=== PATIENT | female | born 1980 | race Native Hawaiian/Other Pacific Islander ===

== ENCOUNTER → 2017-12-01 21:42 | Outpatient (CLI) | payer BC, SELFPAY ==
[2017-12-01 22:06] LABS: Absolute Lymphocyte Count 2.44 X10^3/ul (0.83-4.51); Absolute Neutrophil Count 4.3 X10^3/uL (2.0-7.7); Basophil# 0.04 X10^3/uL; Basophil% 0.6 % (0-1); Eosinophil# 0.11 X10^3/uL; Eosinophils% 1.5 % (0-5); Hematocrit 39.4 % (37-47); Hemoglobin 13.1 g/dl (12.0-15.0); Lymphocyte # 2.44 X10^3/ul (4.0); Lymphocyte % 33.6 % (19-41); Mean Corp Hgb Conc 33.2 g/gl (32-36); Mean Corpuscular Hgb 29.1 pg (27.0-32.0); Mean Corpuscular Volume 87.6 fL (81-99); Mean Platelet Vol. 9.5 fl (6.2-12.0); Monocyte% 5.5 % (0-10); Neutrophil # 4.26 X10^3/uL (2.7-7.7); Neutrophil % 58.5 % (47-70); POSITIVE COUNT NO; POSITIVE DIFFERENTIAL NO; POSITIVE MORPHOLOGY NO; Platelet Count 371 K/mm3 (150-450); RBC Distribution Width CV 13.2 % (11.6-14.6); RBC Distribution Width SD 41.7 fl (35.1-43.9); White Blood Count 7.3 K/mm3 (4.4-11.0)
[2017-12-01 22:25] LABS: ALB/GLOB Ratio 1.4 RATIO (0.9-2.4); AST(SGOT) 20 U/L (15-37); Alanine Aminotransfer ALT/SGPT 30 U/L (13-56); Albumin, Serum 4.6 g/dL (3.2-5.0); Alkaline Phosphatase 30 U/L (45-117); Anion Gap 9 (5-15); BUN 12 mg/dL (7-18); BUN/Creat Ratio 12.5 RATIO (10-20); Calcium,Total 9.1 mg/dL (8.5-10.1); Chloride 107 mmol/L (98-107); Cholesterol 130 mg/dL (200); Creatinine, Serum 0.96 mg/dL (0.55-1.02); EST Glomerular Filtration Rate 68 mL/min (>60); Est Glom Filt Rate - Afr Amer 83 mL/min (>60); Globulin 3.2 g/dL (2.2-4.2); Glucose 99 mg/dL (74-106); High Density Lipoprotein 81 mg/dL; Protein, Total 7.8 g/dL (6.4-8.2); Sodium Level 141 mmol/L (136-145); Thyroid Stim Hormone (TSH) 0.51 uIU/mL (0.358-3.74); Triglycerides 63 mg/dL; Very Low Density Lipoprotein 13 mg/dL (5-40)
== END ==
PROVIDERS: Visit Provider Nurse Practitioner
DX: E11.65 Type 2 diabetes mellitus with hyperglycemia (principal); G47.00 Insomnia, unspecified; E78.00 Pure hypercholesterolemia, unspecified; E03.9 Hypothyroidism, unspecified
CPT/HCPCS: 80053; 80061; 84439; 84443; 85025

== ENCOUNTER → 2018-02-06 16:31 | Outpatient (CLI) | payer BC, SELFPAY ==
[2018-02-06 17:05] LABS: Cholesterol 192 mg/dL (200); High Density Lipoprotein 65 mg/dL; Triglycerides 202 mg/dL; Very Low Density Lipoprotein 40 mg/dL (5-40)
== END ==
PROVIDERS: Referring Provider Nurse Practitioner; Visit Provider Nurse Practitioner
DX: E78.00 Pure hypercholesterolemia, unspecified (principal)
CPT/HCPCS: 80061

== ENCOUNTER → 2018-09-08 22:20 | Outpatient (CLI) | payer BC, SELFPAY ==
[2018-09-08 16:28] VITALS: BMI 28.3
[2018-09-08 22:46] LABS: Cholesterol 216 mg/dL (200); High Density Lipoprotein 67 mg/dL; Triglycerides 302 mg/dL; Very Low Density Lipoprotein 60 mg/dL (5-40)
== END ==
PROVIDERS: Referring Provider Nurse Practitioner; Visit Provider Nurse Practitioner
DX: E11.9 Type 2 diabetes mellitus without complications (principal)
CPT/HCPCS: 80061

== ENCOUNTER → 2018-12-17 23:18 | Outpatient (CLI) | payer BC, SELFPAY ==
[2018-12-17 15:28] VITALS: BMI 28.0
[2018-12-17 23:27] LABS: Absolute Lymphocyte Count 2.96 X10^3/uL (0.83-4.51); Absolute Neutrophil Count 3.7 X10^3/uL (2.0-7.7); Basophil# 0.06 X10^3/uL; Basophil% 0.8 % (0-1); Eosinophil# 0.19 X10^3/uL; Eosinophils% 2.5 % (0-5); Hematocrit 38.1 % (37-47); Hemoglobin 12.2 g/dL (12.0-15.0); Lymphocyte # 2.96 X10^3/ul (4.0); Lymphocyte % 39.7 % (19-41); Mean Corpuscular Hgb 28.3 pg (27.0-32.0); Mean Corpuscular Volume 88.4 fL (81-99); Mean Platelet Vol. 9.1 fl (6.2-12.0); Monocyte# 0.54 X10^3/uL; Monocyte% 7.2 % (0-10); NRBC Flagged by Analyzer 0 % (0-5); Neutrophil # 3.69 X10^3/uL (2.7-7.7); Neutrophil % 49.5 % (47-70); Platelet Count 348 K/mm3 (150-450); RBC Distribution Width CV 13.6 % (11.6-14.6); Red Blood Count 4.31 M/mm3 (4.2-5.4); White Blood Count 7.5 K/mm3 (4.4-11.0)
[2018-12-17 23:40] LABS: ALB/GLOB Ratio 1.2 RATIO (0.9-2.4); AST(SGOT) 16 U/L (15-37); Alanine Aminotransfer ALT/SGPT 29 U/L (13-56); Albumin, Serum 4.2 g/dL (3.2-5.0); Alkaline Phosphatase 28 U/L (45-117); Anion Gap 6 (5-15); BUN 20 mg/dL (7-18); BUN/Creat Ratio 18.9 RATIO (10-20); Calcium,Total 9.3 mg/dL (8.5-10.1); Chloride 108 mmol/L (98-107); Cholesterol 201 mg/dL (200); Creatinine, Serum 1.06 mg/dL (0.55-1.02); EST Glomerular Filtration Rate 61 mL/min (>60); Est Glom Filt Rate - Afr Amer 74 mL/min (>60); Globulin 3.4 g/dL (2.2-4.2); Glucose 142 mg/dL (74-106); High Density Lipoprotein 75 mg/dL; Potassium 3.8 mmol/L (3.5-5.1); Protein, Total 7.6 g/dL (6.4-8.2); Sodium Level 140 mmol/L (136-145); Triglycerides 277 mg/dL; Very Low Density Lipoprotein 55 mg/dL (5-40)
== END ==
PROVIDERS: Referring Provider Nurse Practitioner; Visit Provider Nurse Practitioner
DX: E11.9 Type 2 diabetes mellitus without complications (principal); E78.5 Hyperlipidemia, unspecified
CPT/HCPCS: 80053; 80061; 85025

== ENCOUNTER → 2019-04-28 | Outpatient (CLI) | payer BC, SELFPAY ==
[2019-04-28 14:53] VITALS: BMI 28.1
[2019-05-04 13:46] LABS: HPV Reflexed? NOT INDICATED
== END | disposition home or self-care (01) ==
PROVIDERS: Referring Provider Nurse Practitioner; Visit Provider Nurse Practitioner
DX: Z01.419 Encounter for gynecological examination (general) (routine) without abnormal findings (principal)
CPT/HCPCS: 88175; G0145

== ENCOUNTER → 2019-05-16 16:25 | Outpatient (CLI) | payer BC, SELFPAY ==
[2019-04-28 14:53] VITALS: BMI 28.1
[2019-05-16 18:16] LABS: Progesterone Level 10.42 ng/mL (See Comment)
[2019-05-16 18:31] LABS: hCG Titer Quant., Serum < 1 mIU/mL (1-3)
== END ==
PROVIDERS: Visit Provider Obstetrics & Gynecology
DX: N92.6 Irregular menstruation, unspecified (principal)
CPT/HCPCS: 36415; 84144; 84702

== ENCOUNTER → 2019-06-01 | Outpatient (CLI) | payer BC, SELFPAY ==
[2019-04-28 14:53] VITALS: BMI 28.1
[2019-06-01 16:31] LABS: Chlamydia Trachomatis by PCR Negative (Negative); Neisserai gonorrhoeae by PCR Negative (Negative); Probe Check PASS; Sample Adequacy Control PASS; Specimen Processing Control PASS
== END | disposition home or self-care (01) ==
LOC: LABSPEC 13:20
PROVIDERS: Visit Provider Obstetrics & Gynecology
DX: Z11.3 Encounter for screening for infections with a predominantly sexual mode of transmission (principal)
CPT/HCPCS: 87491; 87591

== ENCOUNTER → 2020-03-26 | Outpatient (CLI) | payer BC, SELFPAY ==
[2020-03-26 17:42] VITALS: BMI 28.9
[2020-03-26 22:22] LABS: Absolute Lymphocyte Count 2.24 X10^3/uL (0.83-4.51); Absolute Neutrophil Count 6.5 X10^3/uL (2.0-7.7); Basophil# 0.05 X10^3/uL; Basophil% 0.5 % (0-1); Eosinophil# 0.08 X10^3/uL; Eosinophils% 0.9 % (0-5); Hematocrit 41.5 % (37-47); Hemoglobin 13.2 g/dL (12.0-15.0); Lymphocyte # 2.24 X10^3/ul (4.0); Mean Corp Hgb Conc 31.8 g/dL (32-36); Mean Corpuscular Hgb 29.3 pg (27.0-32.0); Mean Platelet Vol. 9.1 fl (6.2-12.0); Monocyte# 0.39 X10^3/uL; Monocyte% 4.2 % (0-10); NRBC Flagged by Analyzer 0 % (0-5); Neutrophil # 6.53 X10^3/uL (2.7-7.7); Neutrophil % 70.1 % (47-70); Platelet Count 399 K/mm3 (150-450); RBC Distribution Width CV 13.5 % (11.6-14.6); RBC Distribution Width SD 45.8 fl (35.1-43.9); Red Blood Count 4.51 M/mm3 (4.2-5.4); White Blood Count 9.3 K/mm3 (4.4-11.0)
[2020-03-26 22:43] LABS: Hemoglobin A1c 6.4 % (3.8-5.6)
[2020-03-28 21:19] LABS: EBV Acute VCA IgM < 36.0 U/mL (0.0-35.9); EBV-VCA IgG > 600.0 U/mL (0.0-17.9)
== END | disposition home or self-care (01) ==
PROVIDERS: PCP Nurse Practitioner; Referring Provider Nurse Practitioner; Visit Provider Nurse Practitioner
DX: E13.9 Other specified diabetes mellitus without complications (principal); R53.83 Other fatigue
CPT/HCPCS: 83036; 85025; 86664; 86665

== ENCOUNTER → 2020-04-30 16:59 | Outpatient (CLI) | payer BC, SELFPAY ==
[2020-04-13 19:08] VITALS: BMI 28.7
== END ==
PROVIDERS: PCP Nurse Practitioner; Referring Provider Nurse Practitioner; Visit Provider Nurse Practitioner
DX: R05 Cough (principal); R43.8 Other disturbances of smell and taste; M79.10 Myalgia, unspecified site
CPT/HCPCS: 87635; C9803; U0005; U0003

== ENCOUNTER → 2020-07-02 | Outpatient (CLI) | payer BC, SELFPAY ==
[2020-07-02 18:19] VITALS: BMI 28.7
[2020-07-02 22:26] LABS: Absolute Lymphocyte Count 3.11 X10^3/uL (0.83-4.51); Basophil# 0.04 X10^3/uL; Basophil% 0.5 % (0-1); Eosinophil# 0.23 X10^3/uL; Eosinophils% 2.9 % (0-5); Hematocrit 37.3 % (37-47); Hemoglobin 12.2 g/dL (12.0-15.0); Lymphocyte # 3.11 X10^3/ul (4.0); Lymphocyte % 38.8 % (19-41); Mean Corp Hgb Conc 32.7 g/dL (32-36); Mean Corpuscular Hgb 29.4 pg (27.0-32.0); Mean Corpuscular Volume 89.9 fL (81-99); Mean Platelet Vol. 9.3 fl (6.2-12.0); Monocyte# 0.61 X10^3/uL; Monocyte% 7.6 % (0-10); NRBC Flagged by Analyzer 0 % (0-5); Neutrophil % 49.8 % (47-70); Platelet Count 374 K/mm3 (150-450); RBC Distribution Width CV 13.3 % (11.6-14.6); RBC Distribution Width SD 43.8 fl (35.1-43.9); Red Blood Count 4.15 M/mm3 (4.2-5.4)
[2020-07-02 22:28] LABS: ALB/GLOB Ratio 1.2 RATIO (0.9-2.4); AST(SGOT) 16 U/L (15-37); Alanine Aminotransfer ALT/SGPT 34 U/L (13-56); Albumin, Serum 4.1 g/dL (3.2-5.0); Alkaline Phosphatase 35 U/L (45-117); Anion Gap 3 (5-15); BUN 18 mg/dL (7-18); BUN/Creat Ratio 18.2 RATIO (10-20); Chloride 105 mmol/L (98-107); Cholesterol 171 mg/dL (200); Creatinine, Serum 0.99 mg/dL (0.55-1.02); EST Glomerular Filtration Rate 65 mL/min (>60); Est Glom Filt Rate - Afr Amer 79 mL/min (>60); Globulin 3.4 g/dL (2.2-4.2); Glucose 211 mg/dL (74-106); High Density Lipoprotein 86 mg/dL; Potassium 3.7 mmol/L (3.5-5.1); Protein, Total 7.5 g/dL (6.4-8.2); Sodium Level 137 mmol/L (136-145); Triglycerides 89 mg/dL; Very Low Density Lipoprotein 18 mg/dL (5-40)
[2020-07-02 23:03] LABS: Hemoglobin A1c 7.2 % (3.8-5.6)
== END | disposition home or self-care (01) ==
PROVIDERS: PCP Nurse Practitioner; Visit Provider Nurse Practitioner
DX: E10.9 Type 1 diabetes mellitus without complications (principal); E78.5 Hyperlipidemia, unspecified
CPT/HCPCS: 80053; 80061; 83036; 85025

== ENCOUNTER → 2020-07-17 | Outpatient (CLI) | payer BC, SELFPAY ==
[2020-07-16 18:35] VITALS: BMI 28.7
[2020-07-17 21:27] LABS: Lyme Ab Screen Interpretation REF LAB
[2020-07-17 22:09] LABS: Hemoglobin A1c 6.9 % (3.8-5.6)
[2020-07-17 22:14] LABS: Iron Binding Capacity,Total 410 ug/dL (250-450); Rheumatoid Factor < 10.0 IU/mL (<15); Thyroid Stim Hormone (TSH) 0.97 uIU/mL (0.358-3.74)
[2020-07-18 10:25] LABS: PTHIN 15.7 pg/mL (18.4-80.1)
[2020-07-19 16:09] LABS: HEPATITIS B SURFACE AG Negative (Negative); Hepatitis A AB, Total Negative (Negative); Hepatitis A IgM Antibody Negative (Negative); Hepatitis B Core AB IgM Negative (Negative); Hepatitis B Core Ab Total Negative (Negative); Hepatitis C Ab <0.1 s/co ratio (0.0-0.9)
[2020-07-19 18:37] LABS: ANTINUCLEAR ANTIBODIES DIRECT Negative (Negative); EBV Acute VCA IgM < 36.0 U/mL (0.0-35.9); EBV-VCA IgG > 600.0 U/mL (0.0-17.9); Hep B Surface Antibodies Non Reactive (.); Lyme Scn Total Ab w/Rflx <0.91 ISR (0.00-0.90); Transferrin 321 mg/dL (192-364)
== END | disposition home or self-care (01) ==
PROVIDERS: PCP Nurse Practitioner; Visit Provider Nurse Practitioner
DX: E11.9 Type 2 diabetes mellitus without complications (principal); B94.8 Sequelae of other specified infectious and parasitic diseases; D64.9 Anemia, unspecified; L65.9 Nonscarring hair loss, unspecified; E03.9 Hypothyroidism, unspecified; R53.83 Other fatigue
CPT/HCPCS: 83036; 83550; 83970; 84443; 84466; 86038; 86225; 86235; 86431; 86618; 86664; 86665; 86704; 86705; 86706; 86708; 86709; 86803; 87340

== ENCOUNTER 2021-06-11 22:02 | Outpatient (CLI) | payer OTHER, SELFPAY ==
[2021-06-11 22:38] LABS: Absolute Lymphocyte Count 3.05 X10^3/uL (0.83-4.51); Absolute Neutrophil Count 5.4 X10^3/uL (2.0-7.7); Basophil# 0.07 X10^3/uL; Basophil% 0.7 % (0-1); Eosinophil# 0.32 X10^3/uL; Eosinophils% 3.3 % (0-5); Hematocrit 37.8 % (37-47); Hemoglobin 12.9 g/dL (12.0-15.0); Lymphocyte # 3.05 X10^3/ul (0.83-4.51); Lymphocyte % 31.3 % (19-41); Mean Corp Hgb Conc 34.1 g/dL (32-36); Mean Corpuscular Hgb 30.3 pg (27.0-32.0); Mean Corpuscular Volume 88.7 fL (81-99); Mean Platelet Vol. 9.1 fl (6.2-12.0); Monocyte# 0.85 X10^3/uL; Monocyte% 8.7 % (0-10); NRBC Flagged by Analyzer 0 % (0-5); Neutrophil # 5.36 X10^3/uL (2.7-7.7); Neutrophil % 55.2 % (47-70); Platelet Count 378 K/mm3 (150-450); RBC Distribution Width CV 13.4 % (11.6-14.6); RBC Distribution Width SD 43.2 fl (35.1-43.9); Red Blood Count 4.26 M/mm3 (4.2-5.4); White Blood Count 9.7 K/mm3 (4.4-11.0)
[2021-06-11 22:55] LABS: Vitamin B12 511 pg/mL (211-911)
[2021-06-11 22:56] LABS: ALB/GLOB Ratio 1.3 RATIO (0.9-2.4); AST(SGOT) 21 U/L (15-37); Alanine Aminotransfer ALT/SGPT 34 U/L (13-56); Albumin, Serum 4.1 g/dL (3.2-5.0); Alkaline Phosphatase 38 U/L (45-117); Anion Gap 5 (5-15); BUN 17 mg/dL (7-18); BUN/Creat Ratio 18.5 RATIO (10-20); Calcium,Total 9.3 mg/dL (8.5-10.1); Chloride 107 mmol/L (98-107); Cholesterol 158 mg/dL (200); Creatinine, Serum 0.92 mg/dL (0.55-1.02); EST Glomerular Filtration Rate 71 mL/min (>60); Est Glom Filt Rate - Afr Amer 85 mL/min (>60); Globulin 3.1 g/dL (2.2-4.2); Glucose 136 mg/dL (74-106); High Density Lipoprotein 67 mg/dL; Protein, Total 7.2 g/dL (6.4-8.2); Sodium Level 138 mmol/L (136-145); Thyroid Stim Hormone (TSH) 1.12 uIU/mL (0.358-3.74); Triglycerides 217 mg/dL; Very Low Density Lipoprotein 43 mg/dL (5-40)
[2021-06-11 23:04] LABS: Hemoglobin A1c 6.8 % (3.8-5.6)
[2021-06-13 17:08] LABS: EBV Acute VCA IgM < 36.0 U/mL (0.0-35.9); EBV-VCA IgG > 600.0 U/mL (0.0-17.9)
[2021-06-14 16:08] LABS: Vitamin D 1,25-Dihydroxy 65.9 pg/mL (19.9-79.3)
== END 2021-06-11 23:59 | disposition home or self-care (01) ==
PROVIDERS: PCP Nurse Practitioner; Visit Provider Nurse Practitioner
DX: E11.9 Type 2 diabetes mellitus without complications (principal); U09.9 Post COVID-19 condition, unspecified; G93.3 Postviral and related fatigue syndromes; T50.B95A Adverse effect of other viral vaccines, initial encounter; E78.2 Mixed hyperlipidemia
CPT/HCPCS: 80053; 80061; 82607; 82652; 83036; 84443; 85025; 86664; 86665

== ENCOUNTER → 2022-05-08 | Outpatient (CLI) | payer OTHER, SELFPAY ==
[2022-05-16 03:07] LABS: HPV Genotype 16, Aptima Negative (Negative)
[2022-05-16 17:27] LABS: HPV APTIMA, High Risk Positive (Negative); HPV Genotype 18,45 Aptima Negative (Negative)
== END | disposition home or self-care (01) ==
LOC: LABSPEC 10:27
PROVIDERS: PCP Nurse Practitioner; Referring Provider Obstetrics & Gynecology; Visit Provider Obstetrics & Gynecology
DX: Z12.4 Encounter for screening for malignant neoplasm of cervix (principal)
CPT/HCPCS: 87624; 88175; G0145

== ENCOUNTER → 2022-07-01 | Outpatient (CLI) | payer OTHER, SELFPAY ==
--- NOTE | 2022-07-01 | BRBX_PTH ---
PATIENT: ISABELLE NAGY LOC: [facility] U#:[id number] AGE/SX: 42/F ROOM: RE07/01/[address]: Dr. Mary Jo Alvarado MD : 1980 BED: DIS: 07/01/2022 SPEC #: [id number] RECD: 07/01/22 14:51 STATUS: AMY RETracy #: [id number] CARMEN: 07/01/22 00:[address]: Mary Jo Alvarado DEPT: SURGICAL PATHOLOGY RECD BY: Damian Haddad ENTERED: 07/02/22 09:19 SP TYPE: BREAST BX OTHR DR: Sima Loving, CHAIN SALES REPRESENTATIVE-C Tissues: A - Right breast, NOS B - Right breast, NOS Procedures: Surgery Specimen Level IV HEADER OPERATION: Ultrasound-guided right breast biopsies PRE-OP DIAGNOSIS: Breast mass x2 TISSUE SUBMITTED: A - Right breast 5 o?clock, 3 cm from nipple, B - Right breast 5 o?clock, 7 cm from nipple MICROSCOPIC DIAGNOSIS A. Right breast at 5 o?clock, 3 cm, biopsy: Mild fibrocystic change. No evidence of malignancy. B. Right breast at 5 o?clock, 7 cm, biopsy: Invasive ductal carcinoma with the follow characteristics: Nuclear grade - 2-3 Maximal length - 10 millimeters. See comment. AM:sahra 07/03/2022 COMMENT B. Immunohistochemistry ([id number]) supports the above diagnosis. This case was discussed with Dr. Alvarado on 07/03/[address] Winter. Case has been reviewed in consultation with Dr. Schwartz who concurs with the above diagnosis. IDC:SJ MICROSCOPIC DESCRIPTION Slides are reviewed. GROSS DESCRIPTION A - Received in fixative is one container labeled with the patient's name and designated right breast. The specimen consists of an elongated fragment of bhat tissue measuring 1.2 cm in length and 0.2 cm in maximal diameter. The specimen is totally submitted in one cassette. B - Received in fixative is one container labeled with the patient's name and designated right breast. The specimen consists of two elongated cores of bhat tissue. Each core has an average length of 1.5 cm and maximal diameter of 0.2 cm. The specimen is totally submitted in one cassette. / AM:sahra 07/02/2022 TC:0 CPT: 27732 x2
--- NOTE | 2022-07-01 | IMM_PTH ---
PATIENT: ISABELLE NAGY LOC: [facility] U#:[id number] AGE/SX: 42/F ROOM: RE07/01/[address]: Dr. Mary Jo Alvarado MD : 1980 BED: DIS: 07/01/2022 SPEC #: [id number] RECD: 07/03/22 13:29 STATUS: AMY REQ #: [id number] CARMEN: 07/01/22 00:[address]: Mary Jo Alvarado DEPT: IMMUNOHISTOCHEMISTRY RECD BY: Radha Bailey ENTERED: 07/03/22 13:30 SP TYPE: IMMUNO OTHR DR: Sima Loving, SHEAR GRINDER OPERATOR HELPER-C Tissues: B - Right breast, NOS Procedures: CALPONIN-1 (add) CK5-6 (add) CK8 (add) SULLIVAN-2 (add) E-CAD (add) HER2 TALIB (add) KI-67 (add) P53 (add) IN (add) P40 (add) ER (initial) PHYSICIAN & INSTITUTION [address] [address] SPECIMEN INFORMATION: Tissue Source: B ? Right breast at 5 o?clock, 7 cm Clinical Info: Breast mass Specimen Number: [id number] CPT code: 07077, 40122 x7, 44002 x3 METHODOLOGY: Deparaffinized sections of prefer/formalin-fixed tissue or PAP/DQ stained slides are incubated with monoclonal/polyclonal antibodies/oligonucleotide probes. Localization is made via biotin free immunoperoxidase method. Appropriate controls are performed and reacted as expected. Results on target cell population are indicated in the following table: RESULTS: ANTIBODY / CLONE RESULT Block B P53 (DO-7) positive, 80% Ki-67 (30-9) positive, 90% CK8 (41ooubA76) positive CK5-6 (D5 & 1684) negative Calponin-1 (SR611H) negative P40 (BC28) negative E-Cad (ECH-6) positive SULLIVAN-2 (SP21) positive MORPHOMETRIC ANALYSIS ER (clone 6F11) 65%, weak to moderate intensity IN (clone 16/1E2) 45%, weak to moderate intensity Her-2Neu (clone CB11) 3+ The prognostic test for HER2 is performed on formalin-fixed paraffin embedded tissue. A 3+ (positive) staining pattern is defined as intense, homogeneous, complete, circumferential membranous staining in >10% of contiguous tumor cells. A similar weak (2+) staining pattern is interpreted as equivocal. PANKAJ follow-up testing is recommended for all equivocal cases. Positivity/negativity for ER/IN is reported if > or < 1% of the tumor cells are immuno- reactive, respectively. The ASCO/CAP criteria is used for scoring. Reference: Journal of Clinical Oncology, 2013; 31:9766-5447 & 2010; 16:3658-5474. Duration of fixation: 29 Hrs; Sample Adequate: Yes. These assays have not been validated on decalcified tissues. Results should be interpreted with caution given the likelihood of false negativity on decalcified specimens. These tests were developed and their performance characteristics determined by [facility]. They may not have been cleared or approved by the U.S. Food and Drug Administration. The FDA has determined that such clearance or approval is not necessary. The above immunohistochemical/dualISH markers are ordered and reviewed by the Pathologist. INTERPRETATION: B. Right breast at 5 o?clock, 7 cm, biopsy: Invasive ductal carcinoma, nuclear grade 2-3. Positive for estrogen receptors (favorable prognostic indicator). Positive for progesterone receptors (favorable prognostic indicator). Positive for overexpression of [id number]. AM:sahra 07/04/2022
--- NOTE | 2022-07-01 13:33 | US_ITS ---
ULTRASOUND GUIDED CORE BIOPSY REASON FOR EXAM: Female, 42 years old. Breast mass PERTINENT HISTORY: 2 right breast masses. COMPARISON: None. TECHNIQUE: (All elements of maximal sterile barrier technique followed, including US elements as applicable) Under direct sonographic guidance, the surgeon performed 2 core biopsies of a 1.5 cm x 1.7 cm x 1.3 cm irregular hypoechoic solid nodule at the 5:00 position of the breast at 7 cm from the nipple. A clip was placed. IMPRESSION: Ultrasound guided core biopsy of a mass in the RIGHT breast at the 5:00 position of the breast at 7 Franco from nipple. without complication. Electronically Signed: Ziggy Robertson MD at 15:23 EDT , ULTRASOUND GUIDED CORE BIOPSY REASON FOR EXAM: Female, 42 years old. Breast mass PERTINENT HISTORY: Right breast masses. COMPARISON: None. TECHNIQUE: (All elements of maximal sterile barrier technique followed, including US elements as applicable) Under direct sonographic guidance, a decision perform core biopsies of a 9 mm x 6 mm x 6 mm hypoechoic irregular nodule at the 5:00 position of the breast at 3 cm from the nipple. US/US Breast Biopsy 1st Lesion IMPRESSION: Ultrasound guided core biopsy of a mass in the RIGHT breast at the 5:00 position of the breast at 3 cm from the nipple without complication. Electronically Signed: Ziggy Robertson MD at 15:23 EDT ,
--- NOTE | 2022-07-01 14:44 | PCM.OPRPT ---
Report of Operation Date of Procedure: 07/01/22 Pre-Operative Diagnosis: Right breast mass x2 Post-Operative Diagnosis: Same Surgery/Procedure Performed:: Ultrasound-guided right breast mass core biopsy x2 Description of Surgical Findings:: BI-RADS 5 Surgeon: Mary Jo Alvarado Type of Anesthesia: Local Specimen's removed: 1. Right breast mass 5:00 3 cm from the nipple, 2. right breast mass 5:00 to 7 cm from nipple Estimated Blood Loss (mL): minimal Description of Procedure: Procedure: Right ultrasound-guided core biopsy x2 Indications: 42 year-old female with the hypoechoic solid nodule at 5:00 in the right breast 3 cm and 7 cm from the nipple. Risk benefits were discussed the patient and she elected to proceed with ultrasound guided core biopsy with clip placement Description of procedure: Patient was brought into the ultrasound room in the right breast was marked. A timeout was completed verifying correct patient, procedure, site, specially, prior to beginning procedure. The right breast was prepped and draped in usual sterile fashion and using local anesthesia was obtained with 1% lidocaine with epi. Both procedures were done similarly. From the same incision. The lesion was located with the ultrasound. Small incision was made with 11 blade to introduced the BARD MaxCore through the skin. Under ultrasound guidance multiple core samples were obtained using then 14-gauge BARD MaxCore and sent in formalin for pathology. The mammotome mammostar clip (5:00 3 cm) and Bard dual ultra ribbon clip (5:00 7 cm) were then deployed into the biopsy cavity under ultrasound guidance and a picture was taken. Upon completion procedure hemostasis was obtained and a Steri-Strip and OpSite were placed. 2 view mammography did confirm clip placement. The patient tolerated the procedure well and was discharged from the breast imaging department good condition. Complications none
== END | disposition home or self-care (01) ==
PROVIDERS: PCP Nurse Practitioner; Visit Provider Surgery
DX: C50.311 Malignant neoplasm of lower-inner quadrant of right female breast (principal)
CPT/HCPCS: 19083; 19084; 88305; 88341; 88342

== ENCOUNTER → 2022-07-15 | Outpatient (CLI) | payer OTHER, SELFPAY ==
--- NOTE | 2022-07-15 13:15 | MRI_ITS ---
STUDY: BILATERAL BREAST MR WITHOUT AND WITH CONTRAST REASON FOR EXAM: Female, 42 years old. Right breast cancer status post biopsy. TECHNIQUE: Multi-sequence multi-echo imaging of both breasts was performed with a dedicated breast coil. T1-weighted and T2-weighted images were performed before the administration of contrast. T1-weighted images were also performed after the intravenous administration of 15 mL of CLARISCAN contrast. COMPARISON: Prior diagnostic mammogram dated June 25, 2022 and right breast ultrasound dated July 01, 2022. FINDINGS: RIGHT BREAST: Scattered fibroglandular densities with asymmetry of glandular tissue, right greater than left. Irregular enhancing mass measuring 2.1 cm x 1.5 cm x 3.5 cm 5:00 position corresponding to the ultrasonographic abnormality. 5:00 position corresponding to the ultrasonographic abnormality. This lesion represents the index lesion. Approximately 9 cm behind the nipple and 3.5 cm below the nipple at approximately the 5:00 position and corresponding to the ultrasonographic abnormality. This lesion represents the index lesion. No other enhancing lesions in the right breast are identified. LEFT BREAST: Scattered fibroglandular density with mild background enhancement. No abnormal enhancing masses or areas of non-mass enhancement in the left breast. Shotty lymph nodes in both axillary with no enlarged or abnormal lymph nodes. Ovoid 2.2 cm x 1.1 cm enhancing lesion in the right lobe of the liver peripherally. This most likely represents hemangioma. However, recommend CT or MRI with liver mass protocol for further evaluation. MRI/Breast Bilateral W/O and W IMPRESSION: Irregular enhancing index lesion at the 5:00 position of the right breast. Probable hemangioma of the right lobe of the liver. Recommend further workup with CT or MRI with liver protocol for further evaluation. CATEGORY: BIRADS Category 6: Known Biopsy-Proven Malignancy - Appropriate Action Should Be Taken. A letter regarding these results will be sent to the patient by the facility within 30 days. Electronically Signed: Dangelo Escobar, at 9:56 EDT ,
[2022-07-15 14:06] LABS: CREATININE FINGERSTICK < 0.9 mg/dL (0.55-1.02); EGFR FINGERSTICK > 60.0000 mL/min (>60)
== END | disposition home or self-care (01) ==
LOC: MRI 13:12
PROVIDERS: PCP Nurse Practitioner; Referring Provider Surgery; Visit Provider Surgery
DX: N63.14 Unspecified lump in the right breast, lower inner quadrant (principal)
CPT/HCPCS: 77049; A9575; A4216; C8908

== ENCOUNTER → 2022-07-30 | Outpatient (CLI) | payer OTHER, SELFPAY ==
--- NOTE | 2022-07-30 07:45 | ECHODONC_ITS ---
Reason For Study: MALIGNANT NEOPLASM OF RT FEMALE BREAST Procedure This was a 2D Doppler, Color Flow transthoracic echocardiogram. Myocardial strain analysis was performed in this exam to aid in the assessment of cardiac function. Exam performed in department. Left Ventricle Normal LV size. Left ventricular systolic function is normal. The estimated ejection fraction is 65 %. No regional wall motion abnormalities noted. Right Ventricle Normal RV size. Normal systolic function. Atria Normal left atrium. Normal right atrium. Mitral Valve Normal mitral valve. Tricuspid Valve Normal tricuspid valve. Mild (1+) tricuspid valve insufficiency. Pulmonary artery systolic pressure is 28 mmHg. Aortic Valve Normal aortic valve. Pulmonic Valve Normal pulmonic valve. Great Vessels Normal aortic root. The pulmonary artery is normal size. Normal inferior vena cava. Pericardium/Pleural No pericardial effusion. MMode/2D Measurements & Calculations LVIDd: 4.9 cm IVSd: 0.99 cm Ao root diam: 2.7 cm LVIDs: 3.0 cm LVPWd: 0.98 cm RVDd: 2.3 cm FS: 38.8 % LAV(MOD-bp): 48.6 ml LA A4 area: 17.6 cm2 LA dimension(2D): 3.5 cm LAV(MOD-bp) Indexed: 27.6 ml/m2 LAV(MOD-sp2): 45.9 ml LAV(MOD-sp4): 45.9 ml RA A4 area: 14.4 cm2 Time Measurements MV dec time: 0.19 sec Doppler Measurements & Calculations MV E max james: 85.5 cm/sec Lat Peak E' James: 11.8 cm/sec Med Peak E' James: 11.7 cm/sec MV A max james: 70.5 cm/sec E/E' lat: 7.2 E/E' med: 7.3 MV E/A: 1.2 MV V2 max: 97.8 cm/sec MV P1/2t max james: 98.6 cm/sec Ao V2 max: 151.6 cm/sec MV max P.8 mmHg MV P1/2t: 51.7 msec Ao max P.2 mmHg MV V2 mean: 58.5 cm/sec MV dec slope: 559.0 cm/sec2 Ao V2 mean: 96.8 cm/sec MV mean P.5 mmHg Ao mean P.2 mmHg MV V2 VTI: 21.7 cm MVA(P1/2t): 4.3 cm2 Ao V2 VTI: 29.1 cm AV (velocity ratio): 0.85 LV V1 max: 102.9 cm/sec PA V2 max: 97.1 cm/sec TR max james: 248.1 cm/sec LV V1 max P.2 mmHg TR max P.6 mmHg LV V1 mean P.2 mmHg LV V1 mean: 71.3 cm/sec LV V1 VTI: 24.7 cm ECHO/ONC Echo Complete Interpretation Summary Normal LV size. Left ventricular systolic function is normal. The estimated ejection fraction is 65 %. Mild (1+) tricuspid valve insufficiency. The global longitudinal strain is normal. The global longitudinal strain = -19. 1 % (normal). Ordering Physician: Myrna Szymanski Referring Physician: Sima Loving Performed By: Micaela Ruelas RDCS, RVT
== END | disposition home or self-care (01) ==
LOC: CVS 07:42
PROVIDERS: PCP Nurse Practitioner; Referring Provider Internal Medicine Hematology & Oncology; Visit Provider Internal Medicine Hematology & Oncology
DX: C50.911 Malignant neoplasm of unspecified site of right female breast (principal); Z79.899 Other long term (current) drug therapy
CPT/HCPCS: 93306; 93356

== ENCOUNTER 2022-07-31 07:10 | Day surgery (SDC) | payer OTHER, SELFPAY ==
[2022-07-31] VITALS (8 sets, daily range): BP systolic 93–121; BP diastolic 59–84; PULSE 80–87; RESP 16–18; TEMP 36.6–37.1; O2SAT 91–99; BMI 30.5
--- NOTE | 2022-07-31 07:11 | SUR.PREOP ---
PHARMACY CALLED TO VERIFY ANTIBIOTIC ORDERS DUE TO PCN ALLERGY, WILL VERIFY ANTIBIOTIC ORDER WITH DR. DESHPANDE WHEN SHE ARRIVES.
--- NOTE | 2022-07-31 07:25 | HP.PCM_ITS ---
History and Physical Date of Admission: 07/31/22 Date of Service:? 07/24/22 MR#: [id number] Acct: [id number] Name:ISABELLE CAZARES Rep #: [id number] : 1980 ? ? Provider: Dr. Mary Jo Alvarado MD Age/Sex:? 42/F ? ? [place] [facility] [place] Status: Signed Intake Vital Signs ? 07/15/2310:33 07/24/2308:22 Height 5 ft 2 in 5 ft 2 in Weight: ? 165 lb BMI ? 30.2 BP ? 133/89 H Blood Pressure Location ? Rt brachial Position ? Sitting RespirationB ? 18 Pulse ? 75 Pulse Source ? Monitor Temp ? 97.4 F L Temp Source ? Temporal Pulse Oximetry (%) ? 100 Oxygen Delivery Method ? 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: No Accompanied by: Is patient in pain?: No Allergies acetaminophen [From Vicodin] Allergy (Severe, Verified 07/24/22 09:26) rashcodeine Allergy (Severe, Verified 07/24/22 09:26) rashhydrocodone [From Vicodin] Allergy (Severe, Verified 07/24/22 09:26) rashPenicillins Allergy (Severe, Verified 07/24/22 09:26) rashpropoxyphene [From Darvocet-N] Allergy (Severe, Verified 07/24/22 09:26) rashcaffeine Adverse Reaction (Severe, Verified 07/24/22 09:26) migraine Medications cetirizine 10 mg capsule (Zyrtec) 10 mg PO DAILY 12/01/17 [History Confirmed 07/24/22] multivitamin 1 tab PO DAILY 12/01/17 [History Confirmed 07/24/22] blood sugar diagnostic (KauliTouch Ultra Test strips) #100 ea 06/12/21 [Rx Confirmed 07/24/22] pen needle, diabetic 29 gauge x 1/2 (BD Ultra-Fine Original Pen Needle) #270 ea 06/12/21 [Rx Confirmed 07/24/22] valacyclovir 1 gram tablet 1,000 mg PO TID PRN cod sore 7 days #21 tabs 06/12/21 [Rx Confirmed 07/24/22] benzonatate 200 mg capsule 200 mg PO TID PRN cough #60 caps 02/24/22 [Rx Confirmed 07/24/22] atorvastatin 20 mg tablet (Lipitor) 20 mg PO DAILY #90 tabs 04/21/22 [Rx Confirmed 07/24/22] fenofibrate nanocrystallized 145 mg tablet 145 mg PO DAILY #90 tabs 04/21/22 [Rx Confirmed 07/24/22] glyburide 5 mg tablet 5 mg PO BID #180 tabs 04/21/22 [Rx Confirmed 07/24/22] sumatriptan succinate 100 mg tablet See Rx Instructions PO .COMPLEX #30 tabs 04/21/22 [Rx Confirmed 07/24/22] topiramate 100 mg tablet (Topamax) 100 mg PO DAILY #90 tabs 04/21/22 [Rx Confirmed 07/24/22] insulin lispro 100 unit/mL subcutaneous pen (Humalog KwikPen (U-100) Insulin) 100 unit subcut DAILY 90 days #90 mL 04/22/22 [Rx Confirmed 07/24/22] sitagliptin phosphate 50 mg tablet (Januvia) 50 mg PO DAILY #90 tabs 04/22/22 [Rx Confirmed 07/24/22] zolpidem 10 mg tablet 10 mg PO QHS PRN insomnia #30 tabs 06/02/22 [Rx Confirmed 07/24/22] lidocaine-prilocaine 2.5 %-2.5 % topical cream 1 applic topical ONCE PRN PORT ACCESS 30 days #30 grams 07/21/22 [Rx Confirmed 07/24/22] ondansetron 8 mg disintegrating tablet 8 mg PO Q8H PRN nausea and vomiting #30 tabs 07/21/22 [Rx Confirmed 07/24/22] dexamethasone 4 mg tablet 4 mg PO BID #6 tabs 07/22/22 [Rx Confirmed 07/24/22] PFSH Medical History?(Updated 07/25/22 @ 10:[address] Mary Jo Alvarado MD) Abnormal MRI ACL (anterior cruciate ligament) tear Adopted Carpal tunnel syndrome CINV (chemotherapy-induced nausea and vomiting) Cleft lip Diabetes type 2, uncontrolled Encounter for education Herpes simplex Hypercholesterolemia Invasive ductal carcinoma of right breast Migraines Mononucleosis Surgical History? Cleft palate and cleft lip Hx of tonsillectomy Social History? Smoking Status:? Former smoker how long ago did patient quit smoking:? cut back on smoking, now vaping as well second hand exposure:? No alcohol intake:? never substance use type:? does not use HPI HPI HPI: 42-year-old female with right invasive ductal breast carcinoma ER/TX (weak to moderate) positive, HER2/gaviota positive presents to discuss port and also review MRI results.? Patient's MRI only shows the index lesion in the right breast at 5:00 does not call any abnormal lymph nodes.? Does see a possible hemangioma of the liver recommended a CT of the abdomen for further classification.? Patient states that genetics did call her and she was negative for testing and do not believe I have received those results yet.? Patient is planned to start her chemotherapy on August 04. ROS General General: No weight change, appetite, fatigue, colon cancer, breast cancer or weakness HEENT HEENT: No difficulty swallowing, eye injury, eye surgery, swollen glands or hoarseness Endo Endocrine: Yes diabetes mellitus; No thyroid disease, thyroid cancer, Hair loss, heat intolerance or cold intolerance Skin Skin: No rash or changing moles Breast Breast: Yes right breast lump, abnormal mammogram and abnormal US; No left breast lump, nipple discharge, breast pain or breast enlargement Musc Musculoskeletal: No back problems, arthritis, rheumatoid arthritis, gout or joint pain Cardio Cardiovascular: No murmur, pacemaker, heart disease, atrial fibrillation, high blood pressure, heart attack, heart stent, palpitations, shortness of breat with exertion or chest pain Psych Psychiatric: No depression, anxiety or hearing voices Resp Respiratory: No shortness of breath, No sleep apnea, No cough, No COPD, No asthma, No emphysema and No wheezing Gastro Gastrointestinal: No abdominal pain, No nausea or vomiting, No diarrhea, No constipation, No blood in stool, No acid reflux, No hemorrhoids, No ulcers, No gallbladder problem and No black,tarry stools Enrike Hematologic: No blood thinners, No blood disorders, No bleeding, No anemia and No blood clots Neuro Neurologic: No numbness and No weakness Exam Const General: cooperative, healthy appearing, comfortable and no acute distress Neck Neck: supple Chest Other: Palpation of upper chest bilaterally?normal. Resp Effort & Inspection: normal respiratory effort Cardio Rate: regular rate Assessment and Plan Assessment and Plan (1) Encounter for insertion of venous access port: ?Status:?Acute (2) Invasive ductal carcinoma of right breast: ?Status:?Acute (3) Liver hemangioma: ?Status:?Acute ? ? ? Orders: Orders Abdomen W/WO IV Contrast 07/24/22 D18.03 - Hemangioma of intra-ab dominal structures, R93.89 - Abnormal findings on diagnostic imaging of other specified body structures ? Plan We will order CT of the abdomen with liver protocol for better evaluation of possible hemangioma of the liver seen on breast MRI. I have discussed above with the patient- Port-a-Cath placement.? Left possible right. Patient has been counseled as to the risks/benefits of the procedure. I have explained the risks of the surgery, including but not limited to: infection, bleeding, injury to any blood vessels/nerves, injury to lungs (such as pneumothorax or hemothorax and need for chest tube), not having any access, nonfunctioning of port due to thrombosis, infection of port, etc.? the patient understands and agrees to proceed. I have answered all the patient's questions to the patient?s satisfaction and the patient has no further questions. Mary Jo Alvarado M.D. Pager: [phone] [facility] [address] [place] [address], [address] [place] [address] Office: [phone] Coding Level of Care Code Off vis,est,level 4 Diagnoses Encounter for insertion of venous access port? Z45.2 Invasive ductal carcinoma of right breast? C50.911 Liver hemangioma? D18.03 07/25/22 1009 <Electronically signed by Mary Jo Alvarado MD> Date Mary Jo Alvarado MD
[2022-07-31 07:40] LABS: Internal QC Validated? YES +Cl - CLEAR BKGD; Pregnancy, Urine Negative Negative
[2022-07-31] MEDS: Lactated Ringers 1,000 ML 15 ML IV (07:43)
[2022-07-31 08:16] LABS: Bedside Glucose 141 mg/dL (74-106)
[2022-07-31] MEDS: Bupivacaine 0.25% 30 ML Vial (09:13)
[2022-07-31] MEDS: Lidocaine 1% /Epi 1:100 (20ml) 20 ML Vial (09:13)
--- NOTE | 2022-07-31 09:31 | RAD_ITS ---
STUDY: X-RAY CHEST REASON FOR EXAM: Female, 42 years old. port -- pacu TECHNIQUE: Single AP portable view of the chest. COMPARISON: None. FINDINGS: A left-sided camille catheter has been placed. The tip is at the junction of the superior vena cava and right atrium. Mild increased markings at the left lung base suggestive of a atelectasis. There is blunting of the left costo phrenic angle. Normal size heart. Normal mediastinum and mitch. Normal visualized pulmonary arteries. Normal visualized aortic arch and descending thoracic aorta. Normal visualized thoracic spine. Normal visualized ribs, clavicles, and shoulders. There is no demonstrated abnormality of the visualized soft tissue structures of the upper abdomen. RAD/CXR for Line Placement IMPRESSION: The tip of the left camille catheter is at the junction of the superior vena cava and right atrium. Electronically Signed: Ziggy Robertson MD at 10:13 EDT ,
--- NOTE | 2022-07-31 09:32 | PCM.OPRPT ---
Report of Operation Date of Procedure: 07/31/22 Pre-Operative Diagnosis: z45.2, right breast cancer Post-Operative Diagnosis: Same Surgery/Procedure Performed:: 1. Placement of left IJ Port-A-Cath 2. Use of fluoroscopy 3. Use of ultrasound Surgeon: Mary Jo Alvarado Type of Anesthesia: Local MAC Anesthesiologist: Farhan Dolan Special Medications: Clindamycin 900 mg IV x1 Specimen's removed: None Estimated Blood Loss (mL): < 10 cc Description of Procedure: After informed consent was given, the patient was brought to the operating room and placed in the supine position. Appropriate time out protocol was followed. Patient was then given IV conscious sedation for anesthesia. The patient's left upper chest and neck were then prepped with a surgical skin preparation and sterile surgical drapes were placed. After proper landmarks were ascertained, the skin at the upper left chest area was then infiltrated with 1:1 mixture of 1% lidocaine with epinephrine and 0.25% marcaine. A needle trocar was then inserted into the left internal jugular vein with ultrasound guidance-multiple vessels were viewed with u/s and the left IJ was chosen-- and there was good aspiration of venous blood. A wire was then threaded into the needle trocar and this was visualized under fluoroscopy to ensure that the wire was in the superior vena cava. Once this was done, then the needle trocar was removed. A small skin sarah was made with an 11 blade knife at the wire entrance site. The dilator with the introducer sheath attached was then placed over the wire into the left internal jugular vein via the Seldinger technique and this was visualized under fluoroscopy. The dilator and sheath were in proper position as visualized by fluoroscopy. A subcutaneous pocket was then created caudad to the catheter insertion site. A transverse skin incision was made after the skin and subcutaneous tissues were infiltrated with local anesthetic. Blunt dissection was then used to create a space large enough for placement of the subcutaneous port. The catheter was then tunneled into the subcutaneous pocket. The wire and dilator were then removed. The catheter was then threaded into the introducer sheath and was positioned with its tip at the junction of the superior vena cava and the right atrium as visualized under fluoroscopy. The excess catheter was transected. The catheter was then attached to the subcutaneous port using manufacturers guidelines. The catheter was flushed with a heparin saline mixture prior to placement. Hemostasis was carefully controlled with electrocautery. The port was sutured to the subcutaneous fascia using 2-0 Vicryl suture at two sites. The port was then placed in the subcutaneous pocket. The incision were reapproximated with interrupted subdermal 3-0 vicryl sutures. The skin was reapproximated with 3-0 nylon suture in a interrupted fashion. Steristrips were used for reinforcement of the skin closure at IJ insertion site and a sterile opsite dressings were applied. The patient tolerated the procedure well. Grafts/Implants Used: [employer] PowerPort isp M.R.I. 8Fr Lot lot [id number] ref [id number] Complications none
--- NOTE | 2022-07-31 09:34 | DCINST_ITS ---
Discharge Instructions Procedure Port-A-Cath Diet Discharge Diet: Light diet - advance as tolerated Activity May shower in (days): 5 (Keep port site clean and dry x5 days. Neck incision okay to get wet after 1 day. Okay to lower shower and upper sponge bath. OR okay to taper off port site with a Ziploc bag to shower) Lifting Restrictions: No lifting > 15 pounds for 3 days with the arm on the side of the port Dressing / Incision Call your doctor if your incision/area has: Continuous Slow Oozing, Sudden Increased Bleeding, Increased Pain/ Swelling, Increased Redness, Foul Smelling Discharge and Swelling at the incision site Call your doctor if you observe: Fever of 101 or Higher Change Dressing in: 2 days Follow Up Care Please Follow Up With: Mary Jo Alvarado MD When: In 10 days for permanent suture removal?call office for appointment Test Results: Test results from this visit will be discussed in further detail at your follow- up appointment, if applicable. Discharge Plan Admission Attending Provider: Mary Jo Alvarado Primary Care Provider: Sima Loving NP Discharge Orders/Prescriptions Prescriptions: Continued ondansetron 8 mg tablet,disintegrating 8 mg PO Q8H PRN (Reason: nausea and vomiting) Qty: 30 2RF dexamethasone 4 mg tablet 4 mg PO BID Qty: 6 5RF Rx Instructions: Take the day before, the day of and the day after chemotherapy multivitamin tablet 1 tab PO DAILY cetirizine [Zyrtec] 10 mg capsule 10 mg PO DAILY (DME) OneTouch Ultra Test Strip See Rx Instructions .ROUTE .MEDSUPPLY Qty: 100 3RF Rx Instructions: As directed (DME) pen needle, diabetic [BD Ultra-Fine Orig Pen Needle] 29 gauge x 1/2 needle See Dose Instructions .ROUTE .MEDSUPPLY Qty: 270 3RF Dose Instruction: As directed Rx Instructions: As directed for insulin injections valacyclovir 1 gram tablet 1,000 mg PO TID PRN (Reason: cod sore) 7 Days Qty: 21 12RF benzonatate 200 mg capsule 200 mg PO TID PRN (Reason: cough) Qty: 60 0RF fenofibrate nanocrystallized 145 mg tablet 145 mg PO DAILY Qty: 90 3RF Januvia 50 mg tablet 50 mg PO DAILY Qty: 90 3RF zolpidem 10 mg tablet 10 mg PO QHS PRN (Reason: insomnia) Qty: 30 5RF vitamin B complex Capsule 1 cap PO DAILY atorvastatin [Lipitor] 20 mg tablet 20 mg PO QHS sumatriptan succinate 100 mg tablet 100 mg PO PRN PRN (Reason: MIGRAINES) topiramate [Topamax] 100 mg tablet 100 mg PO QHS insulin lispro [Humalog KwikPen Insulin] 100 unit/mL insulin pen 0 - 100 unit subcut TID Rx Instructions: 7 units today 07/31/22 lidocaine-prilocaine 2.5-2.5 % cream 1 applic topical ONCE PRN (Reason: PORT ACCESS) 30 Days Qty: 30 2RF Referrals / Follow Up: Sima Loving [employer], [employer] [facility] [Primary Care Provider] - Disposition Disposition (needs filled in before D/C Order can be placed): Home, Self Care
== END 2022-07-31 11:00 | disposition home or self-care (01) ==
LOC: SDC 07:10 → AC 07:11
PROVIDERS: Anesthesiology; PCP Nurse Practitioner; Referring Provider Surgery; Visit Provider Surgery
PROC: (CPT 36561; principal; 2022-07-31 08:30)
DX: Z45.2 Encounter for adjustment and management of vascular access device (principal); C50.911 Malignant neoplasm of unspecified site of right female breast; Z79.4 Long term (current) use of insulin; E10.9 Type 1 diabetes mellitus without complications; D18.03 Hemangioma of intra-abdominal structures; E78.00 Pure hypercholesterolemia, unspecified; Z79.899 Other long term (current) drug therapy; Z87.891 Personal history of nicotine dependence; Z86.16 Personal history of COVID-19
CPT/HCPCS: 36561; 00532; 71045; 77001; 81025; 82962; J7120; C1788; J2405

== ENCOUNTER → 2022-08-05 | Outpatient (CLI) | payer OTHER, SELFPAY ==
--- NOTE | 2022-08-05 15:03 | CT_ITS ---
STUDY: CT ABDOMEN WITH AND WITHOUT CONTRAST REASON FOR EXAM: Female, 42 years old. Abnormal MRI/Liver hemangioma -- Liver protocol. History of breast carcinoma. RADIATION DOSAGE (If Supplied By Facility): CTDIvol = ( 14.42 ) mGy, DLP = ( 1251.40 ) mGycm TECHNIQUE: Transaxial images were obtained pre and post I.V. administration of IV 100mL Isovue-300, and oral contrast. Sagittal and coronal images were reconstructed. Individualized dose optimization techniques were used for this CT. COMPARISON: Comparison is made with prior MRI of the breasts dated July 15, 2022. FINDINGS: A tissue clip marker from prior biopsy is seen in the medial inferior aspect of the right breast within a 1.9 cm x 1.6 cm irregular nodule. The visualized lung bases are unremarkable. The visualized portions of the heart are within normal limits. There is decreased attenuation of the liver consistent with steatosis. There is a 1.1 cm x 1.7 cm hypodense nodule in the peripheral lateral aspect of the superior portion of the right lobe of the liver anteriorly. There is peripheral enhancement suggestive of a benign appearing hemangioma. Normal gallbladder and extrahepatic biliary system. Normal spleen. Normal pancreas. Normal bilateral adrenal glands. Normal right kidney. Normal left kidney. There is a small hiatal hernia. Normal small intestine. Normal colon. The appendix is visualized and appears normal. Normal abdominal aorta. Normal inferior vena cava. Normal retroperitoneum. Normal abdominal wall. Normal osseous structures. CT/Abdomen W/WO IV Contrast IMPRESSION: Diffuse fatty infiltration of the liver. Findings suggestive of a 1.1 cm x 1.7 cm hemangioma corresponding to the MRI findings. Right breast mass Electronically Signed: Ziggy Robertson MD at 12:14 EDT ,
== END | disposition home or self-care (01) ==
LOC: CT 15:03
PROVIDERS: PCP Nurse Practitioner; Referring Provider Surgery; Visit Provider Surgery
DX: D18.03 Hemangioma of intra-abdominal structures (principal); K76.0 Fatty (change of) liver, not elsewhere classified
CPT/HCPCS: 74170; Q9967

== ENCOUNTER → 2022-08-18 | Outpatient (CLI) | payer OTHER, SELFPAY | END | disposition home or self-care (01) | PROVIDERS: PCP Nurse Practitioner; Visit Provider Nurse Practitioner | DX: L73.9 Follicular disorder, unspecified (principal); B95.8 Unspecified staphylococcus as the cause of diseases classified elsewhere | CPT/HCPCS: 87070; 87205 ==

== ENCOUNTER 2022-10-12 13:57 | Emergency (ER) | payer OTHER, SELFPAY ==
[2022-10-12 13:57] VITALS: BP 111/81; PULSE 99; RESP 18; TEMP 36.2; O2SAT 98; BMI 27.5
[2022-10-12 14:16] VITALS: BP 111/76; PULSE 96; RESP 18
--- NOTE | 2022-10-12 14:19 | EDS_ITS ---
HPI History of Present Illness Chief Complaint: Weakness Narrative Narrative: 42-year-old female past medical history of breast carcinoma, nonmetastatic, is undergoing her fourth round of chemotherapy which she received on Thursday, 7 days ago. She presents with generalized weakness, weakness of her legs and near syncope. She states that she has been nauseated since her chemotherapy. She usually takes ondansetron and receives a long-acting antiemetic when she receives her infusion through her medical port. Over the last 24 hours she has had multiple episodes of diarrhea, nonbloody, and watery stool. She vomited once yesterday. She denies any fevers or chills. No dysuria or hematuria. In review of her problem list she has had fatigue and exhaustion in the past. She presents because of her near syncope, feeling as if she were going to pass out, and her generalized weakness along with nausea. [facility] Medical History Abnormal MRI Adopted Anemia Anxiety Back pain Cancer Carpal tunnel syndrome CINV (chemotherapy-induced nausea and vomiting) Cleft lip Dietary restriction Encounter for chemotherapy management Encounter for education Encounter for monitoring cardiotoxic drug therapy Former smoker Herpes simplex History of steroid therapy Hx of tear of ACL (anterior cruciate ligament) Hypercholesterolemia Insulin dependent diabetes mellitus Invasive ductal carcinoma of right breast Left ankle pain Migraines Mononucleosis Shortness of breath on exertion Wears glasses Home Medications cetirizine 10 mg capsule (Zyrtec) 10 mg PO DAILY 12/01/17 [History Last Taken Unknown] multivitamin 1 tab PO DAILY 12/01/17 [History Last Taken Unknown] blood sugar diagnostic ([employer] LabTouch Ultra Test strips) #100 ea 06/12/21 [Rx Last Taken Unknown] pen needle, diabetic 29 gauge x 1/2 (BD Ultra-Fine Original Pen Needle) #270 ea 06/12/21 [Rx Last Taken Unknown] valacyclovir 1 gram tablet 1,000 mg PO TID PRN cod sore 7 days #21 tabs 06/12/21 [Rx Last Taken Unknown] fenofibrate nanocrystallized 145 mg tablet 145 mg PO DAILY #90 tabs 04/21/22 [Rx Last Taken Unknown] sitagliptin phosphate 50 mg tablet (Januvia) 50 mg PO DAILY #90 tabs 04/22/22 [Rx Last Taken Unknown] zolpidem 10 mg tablet 10 mg PO QHS PRN insomnia #30 tabs 06/02/22 [Rx Last Taken Unknown] dexamethasone 4 mg tablet 4 mg PO BID #6 tabs 07/22/22 [Rx Last Taken Unknown] atorvastatin 20 mg tablet (Lipitor) 20 mg PO QHS 07/28/22 [History Last Taken Unknown] insulin lispro 100 unit/mL subcutaneous pen (Humalog KwikPen (U-100) Insulin) 0 - 100 unit subcut TID SLIDING SCALE 07/28/22 [History Last Taken 07/31/22] sumatriptan succinate 100 mg tablet 100 mg PO PRN PRN MIGRAINES 07/28/22 [History Last Taken Unknown] topiramate 100 mg tablet (Topamax) 100 mg PO QHS 07/28/22 [History Last Taken Unknown] vitamin B complex 1 cap PO DAILY 07/28/22 [History Last Taken Unknown] lidocaine-prilocaine 2.5 %-2.5 % topical cream 1 applic topical ONCE PRN PORT ACCESS 30 days #30 grams 07/29/22 [Rx Last Taken Unknown] loperamide 2 mg capsule (Anti-Diarrheal (loperamide)) 2 mg PO Q6H PRN loose stool 08/11/22 [History Last Taken Unknown] MAGIC MOUTH WASH (BMX) 180 mL suspension 15 ml PO .Q6HR #180 mL 08/14/22 [Rx Last Taken Unknown] mupirocin 2 % topical ointment 1 applic topical BID #22 grams 08/18/22 [Rx Last Taken Unknown] ondansetron 8 mg disintegrating tablet 8 mg PO Q8H PRN nausea and vomiting #30 tabs 10/06/22 [Rx Last Taken Unknown] Allergy/AdvReac Type Severity Reaction Status Date / Time codeine Allergy Severe rash Verified 10/06/22 08:01 hydrocodone [From Vicodin] Allergy Severe rash Verified 10/06/22 08:01 Penicillins Allergy Severe rash Verified 10/06/22 08:01 propoxyphene Allergy Severe rash Verified 10/06/22 08:01 [From Darvocet-N] caffeine AdvReac Severe migraine Verified 10/06/22 08:01 Surgical History Cleft palate and cleft lip Hx of nasal septoplasty Hx of tonsillectomy Social History Smoking Status: Former smoker how long ago did patient quit smoking: cut back on smoking, now vaping as well second hand exposure: No alcohol intake: never substance use type: does not use ROS ROS ED ROS Narrative Constitutional: No fever, no chills. Generalized weakness. HEENT: No sore throat. No neck pain. No loss of vision. No rhinorrhea. Cardiovascular: No chest pain. No palpitations. No pedal edema. Respiratory: No cough, no shortness of breath. Abdominal: No abdominal pain. No nausea. No vomiting. Genitourinary: No dysuria. No hematuria. Musculoskeletal: No myalgias. No arthralgias. Weakness in bilateral lower extremities. Neurologic: No headaches. No dizziness. Positive near syncope. Skin: No rash. No change in color. Psychiatric: No depression. No anxiety. EXAM Physical Exam Narrative Exam Narrative: Afebrile. Vital signs noted. HEENT: Normocephalic. Atraumatic. PERRL, EOMI. Neck soft and supple. No point tenderness or step off. Cardiovascular: Regular rate and rhythm. No murmurs, rubs, or gallops appreciated. Respiratory: No tachypnea. Lungs clear to auscultation bilaterally. Gastrointestinal: Abdomen soft, nontender, with normoactive bowel sounds. No rebound or guarding. Neurological: Awake. Alert. Nonfocal, nonlateralizing. Skin: No rash. Normal color. No pallor. Musculoskeletal: No pedal edema. Full range of motion extremities. Moves all extremities. Able to sit up in bed without difficulty. Able to cross legs. Const Vital Signs: 10/12/22 13:57 10/12/22 14:16 Temperature 97.2 F L Temperature Source Temporal Pulse Rate 99 96 Respiratory Rate 18 18 Blood Pressure 111/81 H 111/76 Blood Pressure Mean 91 87 Pulse Ox 98 Oxygen Delivery Method Room Air Room Air MDM MDM MDM Narrative Medical decision making narrative: I reviewed her prior records. Once again she has had problems with fatigue and exhaustion and weakness in the past according to her problem list. Concern would be for dehydration given her reported multiple episodes of diarrhea and her 1 episode of vomiting. Comprehensive work-up was pursued. She is afebrile here and I am not concerned for neutropenic fever. EKG was obtained and interpreted by myself independently as normal sinus rhythm at 92 bpm without ectopy or acute ST changes. No STEMI. Normal QTc of 422. I reviewed the patient's laboratory work and she has a normal white count of 8.6 and is not neutropenic. Hemoglobin stable at 10.4 with hematocrit 32.6. Platelet count normal at 221. LFTs show normal AST of 17 and normal ALT of 25. Lipase is normal at 25. Urinalysis was obtained and is negative for infection or ketones. I do not feel that any imaging is indicated. After 1 L normal saline, I do feel that she can be discharged to follow-up with her oncologist. She will continue drinking her Gatorade as she has in the past she states she is also eating bananas. Return instructions to the emergency department were reviewed. I do not feel she requires observation. Disposition is discharged home in stable condition. History & Record Review Discussion w/independent historian: Patient Additional record(s) reviewed:: Prior ED visit Lab Data Attestation: I reviewed the patient's lab results. Labs: Laboratory Results - last 24 hr 10/12/22 10/12/22 14:30 15:38 WBC 8.6 RBC 3.41 L Hgb 10.4 L Hct 32.6 L MCV 95.6 MCH 30.5 MCHC 31.9 L RDW Std Deviation 55.3 H RDW Coeff of Aline 15.7 H Plt Count 221 MPV 9.4 Neut % (Auto) Not Reportable Sodium 139 Potassium 3.8 Chloride 107 Carbon Dioxide 26.0 Anion Gap 6 BUN 12 Creatinine 1.15 H Estim Creat Clear Calc 51.64 Est GFR (MDRD) Af Amer 66 Est GFR (MDRD) Non-Af 54 L BUN/Creatinine Ratio 10.4 Glucose 100 Calcium 9.4 Total Bilirubin 0.20 AST 17 ALT 25 Alkaline Phosphatase 98 Troponin I High Sens < 3 L Total Protein 6.9 Albumin 3.8 Globulin 3.1 Albumin/Globulin Ratio 1.2 Lipase 25 Urine Color Yellow Urine Clarity Clear Urine pH 6.0 Ur Specific [place] 1.010 Urine Protein 15 H Urine Glucose (UA) Normal Urine Ketones Negative Urine Occult Blood Negative Urine Nitrite Negative Urine Bilirubin Negative Urine Urobilinogen Normal Ur Leukocyte Esterase Negative Urine RBC 0 SEEN Urine WBC 0-5 SEEN Ur Squamous Epith Cells 0-5 SEEN Urine Bacteria 0 SEEN Urine Mucus 0 SEEN Discharge Plan Triage Chief Complaint: Weakness ED Provider: Tha Rodriguez Dx/Rx/DC Orders Clinical Impression: Diarrhea, Near syncope, Weakness Instructions: ED Diarrhea, Unknown Cause, ED Near-Fainting, Uncertain Cause, ED Weakness (Uncertain Cause) Prescriptions: No Action dexamethasone 4 mg tablet 4 mg PO BID Qty: 6 5RF Rx Instructions: Take the day before, the day of and the day after chemotherapy MAGIC MOUTH WASH (BMX) 180 mL suspension 15 ml PO .Q6HR Qty: 180 1RF Rx Instructions: diphenhydramine 12.5 mg/5 mL oral liquid 60 mL; aluminum-mag hydroxide- simethicone 400 mg-400 mg-40 mg/5 mL oral susp 60 mL; Lidocaine Viscous 2 % mucosal solution 60 mL; Per 180 mL loperamide [Anti-Diarrheal (loperamide)] 2 mg capsule 2 mg PO Q6H PRN (Reason: loose stool) ondansetron 8 mg tablet,disintegrating 8 mg PO Q8H PRN (Reason: nausea and vomiting) Qty: 30 2RF multivitamin tablet 1 tab PO DAILY cetirizine [Zyrtec] 10 mg capsule 10 mg PO DAILY (DME) OneTouch Ultra Test Strip See Rx Instructions .ROUTE .MEDSUPPLY Qty: 100 3RF Rx Instructions: As directed (DME) pen needle, diabetic [BD Ultra-Fine Orig Pen Needle] 29 gauge x 1/2 needle See Dose Instructions .ROUTE .MEDSUPPLY Qty: 270 3RF Dose Instruction: As directed Rx Instructions: As directed for insulin injections valacyclovir 1 gram tablet 1,000 mg PO TID PRN (Reason: cod sore) 7 Days Qty: 21 12RF fenofibrate nanocrystallized 145 mg tablet 145 mg PO DAILY Qty: 90 3RF Januvia 50 mg tablet 50 mg PO DAILY Qty: 90 3RF zolpidem 10 mg tablet 10 mg PO QHS PRN (Reason: insomnia) Qty: 30 5RF mupirocin 2 % ointment 1 applic topical BID Qty: 22 0RF vitamin B complex Capsule 1 cap PO DAILY atorvastatin [Lipitor] 20 mg tablet 20 mg PO QHS sumatriptan succinate 100 mg tablet 100 mg PO PRN PRN (Reason: MIGRAINES) topiramate [Topamax] 100 mg tablet 100 mg PO QHS insulin lispro [Humalog KwikPen Insulin] 100 unit/mL insulin pen 0 - 100 unit subcut TID Rx Instructions: 7 units today 07/31/22 lidocaine-prilocaine 2.5-2.5 % cream 1 applic topical ONCE PRN (Reason: PORT ACCESS) 30 Days Qty: 30 2RF Primary Care Provider: Sima Loving NP Referrals: Sima Loving NP, [employer] [Primary Care Provider] - As soon as possible Disposition Disposition: Home, Self Care
[2022-10-12] MEDS: Ondansetron 4 MG/2 ML Vial IV (14:32)
[2022-10-12] MEDS: 0.9% Normal Saline 1,000 ML 1000 ML IV (14:32)
[2022-10-12 14:41] LABS: Hematocrit 32.6 % (37-47); Hemoglobin 10.4 g/dL (12.0-15.0); Mean Corp Hgb Conc 31.9 g/dL (32-36); Mean Corpuscular Hgb 30.5 pg (27.0-32.0); Mean Corpuscular Volume 95.6 fL (81-99); Mean Platelet Vol. 9.4 fl (6.2-12.0); POSITIVE COUNT YES; POSITIVE MORPHOLOGY YES; Platelet Count 221 K/mm3 (150-450); RBC Distribution Width CV 15.7 % (11.6-14.6); RBC Distribution Width SD 55.3 fl (35.1-43.9); Red Blood Count 3.41 M/mm3 (4.2-5.4); White Blood Count 8.6 K/mm3 (4.4-11.0)
[2022-10-12 14:50] LABS: Differential Indicated MANUAL DIFF
[2022-10-12 15:03] LABS: ALB/GLOB Ratio 1.2 RATIO (0.9-2.4); AST(SGOT) 17 U/L (15-37); Alanine Aminotransfer ALT/SGPT 25 U/L (13-56); Albumin, Serum 3.8 g/dL (3.2-5.0); Alkaline Phosphatase 98 U/L (45-117); Anion Gap 6 (5-15); BUN 12 mg/dL (7-18); BUN/Creat Ratio 10.4 RATIO (10-20); Calcium,Total 9.4 mg/dL (8.5-10.1); Chloride 107 mmol/L (98-107); Creatinine, Serum 1.15 mg/dL (0.55-1.02); EST Glomerular Filtration Rate 54 mL/min (>60); Est Glom Filt Rate - Afr Amer 66 mL/min (>60); Estimated Creatinine Clearance 51.64 ml/min; Globulin 3.1 g/dL (2.2-4.2); Glucose 100 mg/dL (74-106); Lipase 25 U/L (13-75); Potassium 3.8 mmol/L (3.5-5.1); Protein, Total 6.9 g/dL (6.4-8.2); Sodium Level 139 mmol/L (136-145); Troponin-I HS < 3 pg/mL (3.0-54.0)
[2022-10-12 15:43] LABS: Bacteria 0 SEEN /hpf (None Seen); Mucous, Urine 0 SEEN /hpf (<or=2+); Red Blood Cells-Urine 0 SEEN /hpf (0-5)
[2022-10-12 15:49] LABS: Color, Urine Yellow (Yellow); Glucose, Dipstick Normal (Normal); Ketone-Dipstick Negative (Negative); Leukocyte Esterase-Dipstick Negative /ul (Negative); Nitrite-Dipstick Negative (Negative); Occult Blood-Urine Negative /ul (Negative); Protein-Dipstick 15 mg/dl (Negative); Urine Bilirubin Dipstick Negative (Negative); Urine Clarity Clear (Clear); Urine Urobilinogen Normal (Normal)
[2022-10-12 16:00] LABS: Squamous Epithelial Cells - UA 0-5 SEEN /hpf (5-10); White Blood Cells 0-5 SEEN /hpf (0-5)
[2022-10-12 16:21] LABS: Eosinophil 2 % (0-5); Lymphocyte 27 % (19-41); Monocyte 15 % (0-10); Neutrophil-Band 5 % (0-5); Neutrophil-Segmented 51 % (47-70); Total Cells Counted 100 (MANUAL DIFF)
[2022-10-12 16:22] LABS: Platelet Estimate ADEQUATE (ADEQ); Red Cell Morphology NORM C+C NORMAL (NORM C&C)
[2022-10-12 16:23] LABS: Absolute Lymphocyte Count 2.32 X10^3/uL (0.83-4.51); Absolute Neutrophil Count 4.8 X10^3/uL (2.0-7.7)
[2022-10-12 16:34] VITALS: RESP 18
[2022-10-14 12:33] LABS: Pathologist Review Reviewed
== END 2022-10-12 16:35 | disposition home or self-care (01) ==
PROVIDERS: Emergency Provider Emergency Medicine; PCP Nurse Practitioner; Visit Provider Emergency Medicine
DX: R19.7 Diarrhea, unspecified (principal); Z79.4 Long term (current) use of insulin; E11.9 Type 2 diabetes mellitus without complications; R55 Syncope and collapse; R53.1 Weakness; E78.00 Pure hypercholesterolemia, unspecified; Z87.891 Personal history of nicotine dependence; Z79.899 Other long term (current) drug therapy
CPT/HCPCS: 80053; 81001; 83690; 84484; 85025; 93005; 96361; 96374; 99283; A4216; J2405

== ENCOUNTER → 2022-12-05 | Outpatient (CLI) | payer OTHER, SELFPAY ==
--- NOTE | 2022-12-05 12:40 | MRI_ITS ---
STUDY: BILATERAL BREAST MR WITHOUT AND WITH CONTRAST REASON FOR EXAM: Female, 42 years old. Assess response to neoadjuvant chemotherapy after treatment for intraductal carcinoma. TECHNIQUE: Multi-sequence multi-echo imaging of both breasts was performed with a dedicated breast coil. T1-weighted and T2-weighted images were performed before the administration of contrast. T1-weighted images were also performed after the intravenous administration of 13 mL of Clariscan contrast. COMPARISON: Ultrasound-guided breast biopsy images dated July 01, 2022 and prior breast MRI study with contrast dated July 15, 2022. FINDINGS: RIGHT BREAST: Scattered fibroglandular density is with minimal background enhancement. Resolution of enhancing mass at the 5:00 position of the right breast. No abnormal enhancing masses or areas of non-mass enhancement in the right breast. LEFT BREAST: Scattered fibroglandular densities with minimal background enhancement. No abnormal enhancing masses or areas of non-mass enhancement in the left breast. Normal morphology to lymph nodes in both axillae. No abnormality in the visualized regions of the chest or liver. MRI/Breast Bilateral W/O and W IMPRESSION: Resolution of right breast mass with no masses identified on this breast MRI study with contrast. CATEGORY: BIRADS Category 6: Known Biopsy-Proven Malignancy - Appropriate Action Should Be Taken. A letter regarding these results will be sent to the patient by the facility within 30 days. Electronically Signed: Dangelo Escobar MD at 10:22 EDT ,
--- NOTE | 2022-12-05 13:57 | ECHODONC_ITS ---
Version 2 Reason For Study: Encounter for Therapeutic Drug Level Monitoring Procedure This was a 2D Doppler, Color Flow transthoracic echocardiogram. Myocardial strain analysis was performed in this exam to aid in the assessment of cardiac function. Exam performed in department. Left Ventricle Normal LV size. Left ventricular systolic function is normal. The estimated ejection fraction is 60 %. Stage 1 diastolic dysfunction. No regional wall motion abnormalities noted. Right Ventricle Normal RV size. Normal systolic function. Atria Normal left atrium. Normal right atrium. Mitral Valve Normal mitral valve. Tricuspid Valve Normal tricuspid valve. Mild tricuspid valve insufficiency. Pulmonary artery systolic pressure is 26 mmHg. Pulmonic Valve Normal pulmonic valve. Great Vessels Normal aortic root. The pulmonary artery is normal size. Normal inferior vena cava. Pericardium/Pleural No pericardial effusion. MMode/2D Measurements & Calculations LVIDd: 4.4 cm IVSd: 1.2 cm Ao root diam: 3.1 cm LVIDs: 3.0 cm LVPWd: 0.98 cm LA dimension: 3.4 cm RVDd: 2.8 cm FS: 31.5 % LAV(MOD-bp): 29.2 ml LA A4 area: 12.9 cm2 RA A4 area: 11.1 cm2 LAV(MOD-bp) Indexed: 16.9 ml/m2 LAV(MOD-sp2): 27.4 ml LAV(MOD-sp4): 28.3 ml TAPSE: 1.7 cm Time Measurements MV dec time: 0.19 sec Doppler Measurements & Calculations MV E max james: 60.0 cm/sec Lat Peak E' James: 13.3 cm/sec Med Peak E' James: 8.0 cm/sec MV A max james: 62.9 cm/sec E/E' lat: 4.5 E/E' med: 7.5 MV E/A: 0.95 MV V2 max: 68.3 cm/sec MV P1/2t max james: 68.7 cm/sec Ao V2 max: 131.4 cm/sec MV max P.9 mmHg MV P1/2t: 62.7 msec Ao max P.9 mmHg MV V2 mean: 38.9 cm/sec MV mean P.72 mmHg MV dec slope: 321.1 cm/sec2 MV V2 VTI: 20.9 cm MVA(P1/2t): 3.5 cm2 LV V1 max: 95.3 cm/sec PA V2 max: 101.7 cm/sec TR max james: 239.9 cm/sec LV V1 max P.6 mmHg PA V2 mean: 68.1 cm/sec TR max P.0 mmHg ECHO/ONC Echo Complete Interpretation Summary Normal LV size. Left ventricular systolic function is normal. The estimated ejection fraction is 60 %. Stage 1 diastolic dysfunction. Pulmonary artery systolic pressure is 26 mmHg. The global longitudinal strain is mildly abnormal. The global longitudinal stra in = -16.1% (abnormal). Ordering Physician: Arelis Wang Referring Physician: Arelis Wang Performed By: Eliseo Chappell RCS
== END | disposition home or self-care (01) ==
LOC: MRI 12:34
PROVIDERS: PCP Nurse Practitioner; Referring Provider Nurse Practitioner Family; Visit Provider Nurse Practitioner Family
DX: C50.911 Malignant neoplasm of unspecified site of right female breast (principal); Z51.81 Encounter for therapeutic drug level monitoring; Z79.899 Other long term (current) drug therapy
CPT/HCPCS: 77049; 93306; 93356; A9575; A4216; C8908

== ENCOUNTER 2022-12-25 07:34 | Day surgery (SDC) | payer OTHER, SELFPAY ==
--- NOTE | 2022-12-24 17:07 | NURSING ---
pt is aware of arrival time change and she will be here tomorrow at 0730. she voices understanding
--- NOTE | 2022-12-25 | AXNB_PTH ---
PATIENT: ISABELLE NAGY LOC: [facility] – [place] U#:[id number] AGE/SX: 42/F ROOM: RE12/25/[address]: Dr. Mary Jo Alvarado MD : 1980 BED: DIS: 12/25/2022 SPEC #: [id number] RECD: 12/25/22 14:09 STATUS: AMY RETracy #: [id number] CARMEN: 12/25/22 00:[address]: Mary Jo Alvarado DEPT: SURGICAL PATHOLOGY RECD BY: Radha Bailey ENTERED: 12/25/22 14:41 SP TYPE: AX NODE BX OTHR DR: Sima Loving, IRONWORKER APPRENTICE SHOP-C Tissues: A - Axillary lymph node, NOS B - Right breast, NOS Procedures: Frozen Section (charge) Frozen Section Add'l ([facility]) Surgery Specimen Level V HEADER OPERATION: Right breast stereo wire localization lumpectomy, sentinel lymph node PRE-OP DIAGNOSIS: Invasive ductal carcinoma of right breast, status post chemotherapy TISSUE SUBMITTED: A - Right breast sentinel node, frozen section, B - Right breast mass FROZEN SECTION DIAGNOSIS A. Right sentinel lymph nodes, biopsy: Two out of two lymph nodes, negative for metastatic carcinoma. DENIZ:sahra 12/25/2022 MICROSCOPIC DIAGNOSIS A. Right sentinel lymph nodes, biopsy: Two out of two lymph nodes, negative for metastatic carcinoma. See comment. B. Right breast mass, lumpectomy with needle localization: No evidence of residual carcinoma. Changes consistent with previous biopsy site. See cancer summary in the comment section. DENIZ:sahra 12/30/2022 COMMENT A. The lymph nodes are negative for metastatic carcinoma on multiple H & E levels and immunohisto-chemical stains for cytokeratins ([id number]). B. BREAST CANCER SUMMARY (including previous biopsy specimen [id number]): Procedure - lumpectomy with needle localization Specimen laterality - right Tumor site - as per clinical information, 5 o'clock, 7 cm from nipple Tumor size - no residual invasive carcinoma. Histologic type - Histologic grade (Harriet grade) - previous biopsy specimen [id number] Glandular/tubular differentiation score - 3 Nuclear pleomorphism score - 2-3 Mitotic count score - 2 Overall grade - grade 3 (score of 8) Tumor focality - No evidence of residual carcinoma. Ductal carcinoma in situ - not identified. Tumor extension: Skin - not present Nipple - not applicable Skeletal muscle - not present Margins: previous biopsy site - 0.5 cm from the closest anterior margin. Regional lymph nodes: Number of lymph nodes examined - 2 Number of sentinel lymph nodes examined - 2 Number of lymph nodes with macrometastases, micrometastases or isolated tumor cells - 0 Treatment effect: In the breast - no residual invasive carcinoma is present in the breast after presurgical therapy. In the lymph node - no lymph node metastasis and no prominent fibrous scarring in the nodes. Lymphvascular invasion - not identified Dermal lymphvascular invasion - not applicable Distant metastasis - not applicable Additional Pathologic Findings - - focal fibrocystic changes - changes consistent with previous biopsy site. Ancillary Studies: Previously performed ([id number] / [id number]) ER: positive (65%, weak to moderate intensity) [place]: positive (45%, weak to moderate intensity) Sts9sng: positive (3+) Microcalcifications - not identified Clinical History - Please make reference to previous specimen ([id number]) right breast at 5 o'clock, 3 cm, biopsy with diagnosis of mild fibrocystic changes and right breast at 5 o'clock, 7 cm, biopsy with diagnosis of invasive ductal carcinoma. PATHOLOGIC STAGE: ypT0 N0 Mx The above summary is in compliance with [employer] (CAP) Cancer Protocols Checklist and [place] Joint Committee on Cancer (AJCC), Staging Manual, 8th Ed. Case has been reviewed in consultation with Dr. Winter who concurs with the above diagnosis. IDC:AM MICROSCOPIC DESCRIPTION Slides are reviewed. GROSS DESCRIPTION A - Received fresh for frozen section diagnosis labeled with the patient's name is a specimen designated right breast sentinel lymph node. The specimen consists of a piece of adipose tissue containing two nodules consistent with lymph nodes. The specimen measures 4.0 x 2.5 x 1.0 cm. Two lymph nodes are identified measuring 1.5 and 3.0 cm in greatest dimension. The entire specimen is submitted for frozen section diagnosis in three cassettes as follows: 1 - one bisected lymph node, 2 & 3 - one serially sectioned lymph node. / DENIZ:sahra 12/25/2022 B - Received fresh for intraoperative consultation labeled with the patient's name is a specimen designated right breast mass. The specimen consists of a piece of fibroadipose tissue with needle localization measuring 5.0 x 4.0 x 1.3 cm. The specimen is inked as follows: anterior - yellow, posterior - black, superior - blue, inferior - green, medial - red and lateral - orange. The specimen is oriented as follows: long stitch - lateral, short stitch - superior. The specimen is serially sectioned and does not reveal any mass lesion. This information is conveyed to the surgeon intraoperatively. Sections reveal bhat-yellow adipose cut surfaces. The entire specimen is submitted in 12 cassettes from medial margin to lateral margin. Sections will be submitted after additional fixation. / DENIZ:sahra 12/26/2022 TC:5 CPT: 00073 x2, 33118, 47622 x2, 30608
--- NOTE | 2022-12-25 | IMM_PTH ---
PATIENT: ISABELLE NAGY [place] [facility] [place][id number] AGE/SX: 42/F ROOM: RE12/25/[address]: Dr. Mary Jo Alvarado MD : 1980 BED: DIS: 12/25/2022 SPEC #: [id number] RECD: 12/30/22 11:39 STATUS: AMY REQ #: [id number] CARMEN: 12/25/22 00:[address]: Mary Jo Alvarado DEPT: IMMUNOHISTOCHEMISTRY RECD BY: Radha Bailey ENTERED: 12/30/22 11:40 SP TYPE: IMMUNO OTHR DR: Sima Loving, THICKENER OPERATOR-C Tissues: A - Axillary lymph node, NOS Procedures: CK7 (add) Pankeratin (initial) Pankeratin (add) PHYSICIAN & INSTITUTION [place] [phone] SPECIMEN INFORMATION: Tissue Source: A - Right sentinel lymph nodes Clinical Info: Invasive ductal carcinoma of right breast Specimen Number: [id number] A1-A3 CPT code: 22738, 88412 x5 METHODOLOGY: Deparaffinized sections of prefer/formalin-fixed tissue or PAP/DQ stained slides are incubated with monoclonal/polyclonal antibodies/oligonucleotide probes. Localization is made via biotin free immunoperoxidase method. Appropriate controls are performed and reacted as expected. Results on target cell population are indicated in the following table: RESULTS: ANTIBODY / CLONE RESULT Block A1 AE1-3 (AE1/AE3/PCK26) negative CK7 (OV-TL12/30) negative Block A2 AE1-3 (AE1/AE3/PCK26) negative CK7 (OV-TL12/30) negative Block A3 AE1-3 (AE1/AE3/PCK26) negative CK7 (OV-TL12/30) negative These tests were developed and their performance characteristics determined by [facility]. They may not have been cleared or approved by the U.S. Food and Drug Administration. The FDA has determined that such clearance or approval is not necessary. The above immunohistochemical/dualISH markers are ordered and reviewed by the Pathologist. INTERPRETATION: A. Right sentinel lymph nodes, biopsy: Two out of two lymph nodes, negative for metastatic carcinoma. SJ:sahra 12/31/2022
--- NOTE | 2022-12-25 07:44 | NM_ITS ---
PROCEDURE: NUCLEAR MEDICINE Injection [place] Node - RIGHT breast(s). REASON FOR EXAM: Female, 42 years old. Right breast cancer. TECHNIQUE: [place] node localization using radionuclide methods of the RIGHT breast(s) was performed following subcutaneous administration of 1.1 mCi of of sulfur colloid Tc-99m. COMPARISON STUDIES : NM - None. CR - Not available for review at this time. CT - Not available for review at this time. MR - comparison is made with prior MRI of the breasts dated December 05, 2022. US - Not available for review at this time. FINDINGS: 1.1 mCi of technetium labeled sulfur colloid was injected subcutaneously in the periareolar region in 4 equal aliquots. NM/Lymph Node Injection Only IMPRESSION: 1.1 mCi of technetium labeled sulfur colloid injected subcutaneously in the perihilar region for sentinel node imaging. Electronically Signed: Ziggy Robertson MD at 14:11 EDT ,
[2022-12-25 08:02] VITALS: BP 115/80; PULSE 89; RESP 18; TEMP 36.3; O2SAT 99; BMI 28.0
[2022-12-25 08:30] LABS: Bedside Glucose 197 mg/dL (74-106)
[2022-12-25 09:14] LABS: Internal QC Validated? YES +Cl - CLEAR BKGD; Pregnancy, Urine Negative Negative
--- NOTE | 2022-12-25 10:26 | PCM.HP.BLA ---
History and Physical Date of Admission: 12/25/22 Date of Service: 12/11/22 MR#: [id number] Acct: [id number] Name: ISABELLE NAGY Rep #: [id number] : 1980 Provider: Dr. Mary Jo Alvarado MD Age/Sex: 42/F Location: [facility] Status: Signed Intake Vital Signs 11/25/2307:06 12/11/2315:43 12/11/2309:46 Height 5 ft 3 in 5 ft 3 in BP 90/59 L Blood Pressure Location Rt brachial Position Sitting Respiration 17 Pulse 94 Pulse Source Monitor Temp 97.1 F L Temp Source Temporal Pulse Oximetry (%) 97 Oxygen Delivery Method room air Intake Visit Reasons: REVIEW MRI BREAST RESULTS Chief Complaint: review MRI breast results Allergies codeine Allergy (Severe, Verified 12/11/22 10:43) rashhydrocodone [From Vicodin] Allergy (Severe, Verified 12/11/22 10:43) rashPenicillins Allergy (Severe, Verified 12/11/22 10:43) rashpropoxyphene [From Darvocet-N] Allergy (Severe, Verified 12/11/22 10:43) rashcaffeine Adverse Reaction (Severe, Verified 12/11/22 10:43) migraine Medications cetirizine 10 mg capsule (Zyrtec) 10 mg PO DAILY 12/01/17 [History Confirmed 12/11/22] multivitamin 1 tab PO DAILY 12/01/17 [History Confirmed 12/11/22] blood sugar diagnostic (PlainlegalTouch Ultra Test strips) #100 ea 06/12/21 [Rx Confirmed 12/11/22] pen needle, diabetic 29 gauge x 1/2 (BD Ultra-Fine Original Pen Needle) #270 ea 06/12/21 [Rx Confirmed 12/11/22] valacyclovir 1 gram tablet 1,000 mg PO TID PRN cod sore 7 days #21 tabs 06/12/21 [Rx Confirmed 12/11/22] fenofibrate nanocrystallized 145 mg tablet 145 mg PO DAILY #90 tabs 04/21/22 [Rx Confirmed 12/11/22] sitagliptin phosphate 50 mg tablet (Januvia) 50 mg PO DAILY #90 tabs 04/22/22 [Rx Confirmed 12/11/22] atorvastatin 20 mg tablet (Lipitor) 20 mg PO QHS 07/28/22 [History Confirmed 12/11/22] insulin lispro 100 unit/mL subcutaneous pen (Humalog KwikPen (U-100) Insulin) 0 - 100 unit subcut TID SLIDING SCALE 07/28/22 [History Confirmed 12/11/22] sumatriptan succinate 100 mg tablet 100 mg PO PRN PRN MIGRAINES 07/28/22 [History Confirmed 12/11/22] topiramate 100 mg tablet (Topamax) 100 mg PO QHS 07/28/22 [History Confirmed 12/11/22] vitamin B complex 1 cap PO DAILY 07/28/22 [History Confirmed 12/11/22] lidocaine-prilocaine 2.5 %-2.5 % topical cream 1 applic topical ONCE PRN PORT ACCESS 30 days #30 grams 07/29/22 [Rx Confirmed 12/11/22] loperamide 2 mg capsule (Anti-Diarrheal (loperamide)) 2 mg PO Q6H PRN loose stool 08/11/22 [History Confirmed 12/11/22] ondansetron 8 mg disintegrating tablet 8 mg PO Q8H PRN nausea and vomiting #30 tabs 10/06/22 [Rx Confirmed 12/11/22] glyburide 5 mg tablet 10 mg (2 x 5 mg) PO BID 90 days #360 tabs 10/17/22 [Rx Confirmed 12/11/22] mupirocin 2 % topical ointment 1 applic topical BID #22 grams 10/18/22 [Rx Confirmed 12/11/22] MAGIC MOUTH WASH (BMX) 180 mL suspension 15 ml PO .Q6HR #180 mL 11/24/22 [Rx Confirmed 12/11/22] zolpidem 10 mg tablet 10 mg PO QHS PRN insomnia #30 tabs 12/10/22 [Rx Confirmed 12/11/22] PFSH Medical History (Updated 12/11/22 @ 10:41 by Bouchra Harvey) Abnormal MRI Adopted Anemia Anxiety Back pain C. difficile diarrhea Cancer Carpal tunnel syndrome CINV (chemotherapy-induced nausea and vomiting) Cleft lip Dietary restriction Encounter for chemotherapy management Encounter for education Encounter for insertion of venous access port Encounter for monitoring cardiotoxic drug therapy Former smoker Herpes simplex History of steroid therapy Hx of tear of ACL (anterior cruciate ligament) Hypercholesterolemia Hypokalemia Insulin dependent diabetes mellitus Invasive ductal carcinoma of right breast Left ankle pain Migraines Mononucleosis Shortness of breath on exertion Wears glasses Surgical History Cleft palate and cleft lip Hx of nasal septoplasty Hx of tonsillectomy Social History Smoking Status: Former smoker how long ago did patient quit smoking: cut back on smoking, now vaping as well second hand exposure: No alcohol intake: never substance use type: does not use HPI HPI HPI: 42-year-old female presents for follow-up status post neoadjuvant chemotherapy completion and review of repeat MRI. Patient's repeat MRI shows resolution of the right breast mass with no identifiable enhancement or concern for malignancy. Patient's date of last chemotherapy was November 17, 2022. Patient's initial breast biopsy did have 2 locations 1 at 5:00 about 3 cm in the middle and another at 5:00 7 cm from nipple the 3 cm from nipple was a mammotome which just showed fibrocystic tissue in the 7:00 showed invasive ductal carcinoma. ROS General General: No weight change, appetite, fatigue, colon cancer, breast cancer or weakness HEENT HEENT: No difficulty swallowing, eye injury, eye surgery, swollen glands or hoarseness Endo Endocrine: Yes diabetes mellitus; No thyroid disease, thyroid cancer, Hair loss, heat intolerance or cold intolerance Skin Skin: No rash or changing moles Breast Breast: Yes right breast lump, abnormal mammogram and abnormal US; No left breast lump, nipple discharge, breast pain or breast enlargement Musc Musculoskeletal: No back problems, arthritis, rheumatoid arthritis, gout or joint pain Cardio Cardiovascular: No murmur, pacemaker, heart disease, atrial fibrillation, high blood pressure, heart attack, heart stent, palpitations, shortness of breat with exertion or chest pain Psych Psychiatric: No depression, anxiety or hearing voices Resp Respiratory: No shortness of breath, No sleep apnea, No cough, No COPD, No asthma, No emphysema and No wheezing Gastro Gastrointestinal: No abdominal pain, No nausea or vomiting, No diarrhea, No constipation, No blood in stool, No acid reflux, No hemorrhoids, No ulcers, No gallbladder problem and No black,tarry stools Enrike Hematologic: No blood thinners, No blood disorders, No bleeding, No anemia and No blood clots Neuro Neurologic: No numbness and No weakness Exam Const General: cooperative, healthy appearing and no acute distress [facility] Head: normal to inspection Chest Other: Right breast: Fibroglandular tissue, no masses on exam?previous mass not felt on exam, no nipple discharge or pain, no change in overlying skin, well-healed previous biopsy site No axillary or supraclavicular adenopathy Resp Effort & Inspection: normal respiratory effort Cardio Rate: regular rate GI Inspection: non-distended Palpation: soft Skin General: no rashes or lesions noted Neuro General: patient oriented x3 Extrem General: no clubbing, cyanosis or edema Psych Affect: normal affect Assessment and Plan Assessment and Plan (1) Invasive ductal carcinoma of right breast: Status: Chronic (2) Status post chemotherapy: Status: Acute Plan I have given the patient options for initial surgical treatment. Options are the following: lumpectomy followed by radiation therapy vs. mastectomy vs. mastectomy followed by immediate reconstruction. I have described the procedures to the patient. I have described the advantages and disadvantages of the options, but I have told the patient that among the options, the survival rate for breast cancer is the same. I have told the patient that with all the surgeries that a sentinel lymph node biopsy is required. I have described the procedure of sentinel lymph node biopsy to the patient. I have told the patient that if the biopsy is positive for metastatic disease, then a full axillary lymph node dissection is required. I have told the patient that adjuvant chemotherapy will be required should the lymph nodes reveal metastatic disease. Also, a full lymph node dissection will increase the risk for lymphedema, especially if there are 4 or more lymph nodes positive for metastatic disease and radiation to the axilla is also required. I have told the patient the risks of surgery, including but not limited to: infection, bleeding, scar tissue, seroma and persistent seroma, lymph leak, injury to any blood vessels, injury to any nerves (particularly the long thoracic, the thoracodorsal, and the second intercostal brachial and the resultant sequelae), lymphedema, cosmetic deformity, dysesthesias, wound infections, further surgery (especially if margins are not clear), complications of anesthesia, etc. the patient understands. Patient wishes to proceed with a right stereotactic needle localization lumpectomy (targeting ribbon clip at 5:00 7cm FTN), sentinel lymph node biopsy with blue tracer nuclear dye, possible axillary node dissection. I have answered all the patient?s questions at this point to her satisfaction and she has no further questions. Mary Jo Alvarado M.D. Pager: [phone] [facility] [address] [place] [address], [facility], [address] [place] [address] Office: [phone] Coding Level of Care Code Off vis,est,level 4 Diagnoses Invasive ductal carcinoma of right breast C50.911 Status post chemotherapy Z92.21 12/12/22 1157 <Electronically signed by Mary Jo Alvarado MD> Date Mary Jo Alvarado MD
--- NOTE | 2022-12-25 10:30 | BI_ITS ---
SURGICAL BREAST SPECIMEN RADIOGRAPH CLINICAL: Document presence of tissue clip marker in biopsy specimen. FINDINGS: Specimen shows presence of tissue clip marker. Electronically Signed: Ziggy Robertson MD at 8:47 EDT , BI/Breast Biopsy Specimen IMPRESSION: undefined
[2022-12-25] MEDS: Isosulfan Blue 1% 5 ML Vial (13:40)
[2022-12-25] MEDS: 0.9% Normal Saline (Pres. free 10 ML Vial (13:40)
--- NOTE | 2022-12-25 14:37 | OP.PCM_ITS ---
Report of Operation Date of Procedure: 12/25/22 Pre-Operative Diagnosis: Right breast cancer, HER2 positive, status post neoadj uvant therapy Post-Operative Diagnosis: Same Surgery/Procedure Performed:: Right breast stereotactic needle localization lumpectomy, sentinel lymph node biopsy with nuclear tracer and Lymphazurin Description of Surgical Findings:: 2 out of 2 nodes negative on frozen, no mass seen at lumpectomy site with clip present in x-ray?consistent with MRI complete response Surgeon: Mary Jo Alvarado instructional systems designer: Mikel Cooper Type of Anesthesia: General/Supplemental Anesthesiologist: Raul Lr Special Medications: Clindamycin 900 mg IV x1 Specimen's removed: 1. Right breast [place] lymph node x2, 2. Right breast lumpectomy Estimated Blood Loss (mL): 20 cc Description of Procedure: Synoptic Portion: Element Response Options Operation performed with curative intent. Yes Tracer(s) used to identify sentinel nodes in the upfront surgery (non-neoadjuvant) setting (select all that apply). N/A-neoadjuvant Tracer(s) used to identify sentinel nodes in the neoadjuvant setting (select all that apply).Dye; Radioactive tracer All nodes (colored or non-colored) present at the end of a dye-filled lymphatic channel were removed. Yes All significantly radioactive nodes were removed. Yes All palpably suspicious nodes were removed. N/A Biopsy-proven positive nodes marked with clips prior to chemotherapy were identified and removed. N/A In presurgery the breast tissue was injected with TC-9 9 sulfur colloid. >120 minutes later the patient was taken to the operating room. Patient was brought to the mammography suite for stereotactic right breast needle localization. Consent was signed. Breast was prepped and draped in usual sterile fashion with Betadine. The ribbon clip was localized and the Bard needle was placed just anterior. This was confirmed with 15 and -15 degree views. Additional cc mammography was also done as this location is very close to the chest wall and unable to get a good lateral mammography view. General anesthesia was induced. Localization studies were reviewed. 5 cc of Lymphazurin 1% blue dye was injected in the 4 quadrants periareolar along with 10 cc of normal saline. This was massaged gently for 5 minutes. The right breast and axilla were prepped and draped in usual sterile fashion. A timeout was completed verifying correct patient, procedure, site, positioning, special equipment prior to beginning procedure. Handheld gamma probe was used to identify the location of the hottest spot in the axilla. Prior to the incision, the counts were 75. The incision was made in the blue and hot node was identified. The probe was placed in contact with the node in the 10 count was 2247. The bed of the node measured 22 counts. 1 additional blue node was also removed and sent for frozen. No additional blue or hot nodes were detected. Frozen showed 2 out of 2 nodes negative By comparing localization studies with the direction and skin entry of the needle, the probable trajectory and location of the mass was visualized. A radial incision was planned in such a way as to minimize the amount of dissection to reach the mass. Flaps were raised in the location of the wire confirmed. The wire was delivered into the wound. 2 silk [id number] stay suture was placed around the wire and used for traction. Dissection was then taken down circumferentially, taking care to include the entire localization needle and wide margin of grossly normal tissue?deep margin did get the anterior fascia of the pectoralis muscle. Medium clips x3 were placed at the deep margin. The specimen and entire localizing wire were removed. The specimen was oriented and sent to radiology with the localization studies. Confirmation was received that the entire target lesion had been resected. The cavities were irrigated. Hemostasis was checked. The breast and axillary incisions were closed with interrupted sutures of 3-0 Vicryl and subcuticular sutures of 4-0 Monocryl. No attempt was made to close the space. Steri-Strips placed on the breast incision and Dermabond was placed on the axillary incision. A dressing of fluff gauze and supportive bra placed. The patient tolerated procedure well was taken to the postanesthesia care in stable condition. Complications none
[2022-12-25] MEDS: Bupivacaine 0.25% 30 ML Vial (14:50)
--- NOTE | 2022-12-25 15:13 | DCINST_ITS ---
Discharge Instructions Diet Discharge Diet: No restrictions Activity Discharge Activity: May Not Drive (while taking narcotic pain meds or if having too much pain in right arm) May shower in (days): 1 Lifting Restrictions: 10 pounds for 1 week. Dressing / Incision Call your doctor if your incision/area has: Continuous Slow Oozing, Sudden Increased Bleeding, Increased Pain/ Swelling and Increased Redness Call your doctor if you observe: Fever of 101 or Higher Suture Line Care: Avoid Pulling/Pushing and Avoid Pinching/Bending Remove Dressing in: 1 day Additional Dressing/Incision Instructions:: Remove bulky dressing tomorrow. May leave op-site dressing for 3-4 days. Dermabond (glue) was used at the axillary incision this may start to peel off in about 5 days. Okay to remove Steri- Strips from the breast incision in 7 to 10 days. Follow Up Care Please Follow Up With: Mary Jo Alvarado MD When: Please call [phone] for an appointment to be seen in 2 week. Test Results: Test results from this visit will be discussed in further detail at your follow- up appointment, if applicable. Discharge Plan Admission Attending Provider: Mary Jo Alvarado Primary Care Provider: Sima Loving [employer] Discharge Orders/Prescriptions Prescriptions: New oxycodone-acetaminophen 5-325 mg tablet 1 tab PO Q6H PRN (Reason: pain) 2 Days Qty: 5 0RF Continued ondansetron 8 mg tablet,disintegrating 8 mg PO Q8H PRN (Reason: nausea and vomiting) Qty: 30 2RF MAGIC MOUTH WASH (BMX) 180 mL suspension 15 ml PO .Q6HR Qty: 180 1RF Rx Instructions: diphenhydramine 12.5 mg/5 mL oral liquid 60 mL; aluminum-mag hydroxide- simethicone 400 mg-400 mg-40 mg/5 mL oral susp 60 mL; Lidocaine Viscous 2 % mucosal solution 60 mL; Per 180 mL multivitamin tablet 1 tab PO DAILY (DME) OneTouch Ultra Test Strip See Rx Instructions .ROUTE .MEDSUPPLY Qty: 100 3RF Rx Instructions: As directed (DME) pen needle, diabetic [BD Ultra-Fine Orig Pen Needle] 29 gauge x 1/2 needle See Dose Instructions .ROUTE .MEDSUPPLY Qty: 270 3RF Dose Instruction: As directed Rx Instructions: As directed for insulin injections valacyclovir 1 gram tablet 1,000 mg PO TID PRN (Reason: cod sore) 7 Days Qty: 21 12RF fenofibrate nanocrystallized 145 mg tablet 145 mg PO DAILY Qty: 90 3RF Januvia 50 mg tablet 50 mg PO DAILY Qty: 90 3RF glyburide 5 mg tablet 10 mg PO BID 90 Days Qty: 360 3RF mupirocin 2 % ointment 1 applic topical BID Qty: 22 12RF zolpidem 10 mg tablet 10 mg PO QHS PRN (Reason: insomnia) Qty: 30 5RF vitamin B complex Capsule 1 cap PO DAILY atorvastatin [Lipitor] 20 mg tablet 20 mg PO QHS sumatriptan succinate 100 mg tablet 100 mg PO PRN PRN (Reason: MIGRAINES) topiramate [Topamax] 100 mg tablet 100 mg PO QHS insulin lispro [Humalog KwikPen Insulin] 100 unit/mL insulin pen 0 - 100 unit subcut TID Rx Instructions: 7 units today 07/31/22 Probiotic 10 billion cell capsule 100 mmu cells PO DAILY loratadine [Claritin] 10 mg tablet 10 mg PO DAILY lidocaine-prilocaine 2.5-2.5 % cream 1 applic topical ONCE PRN (Reason: PORT ACCESS) 30 Days Qty: 30 2RF potassium chloride 20 mEq tablet extended release 20 meq PO DAILY Qty: 5 0RF Referrals / Follow Up: Sima Loving NP, [employer] [Primary Care Provider] - Disposition Disposition (needs filled in before D/C Order can be placed): Home, Self Care
[2022-12-25 15:15] VITALS: BP 115/80; BP 120/79; PULSE 84; RESP 16; TEMP 36.3; O2SAT 99
[2022-12-25 15:30] VITALS: BP 114/75; BP 115/80; PULSE 84; RESP 16; O2SAT 98
[2022-12-25 15:44] VITALS: BP 111/79; BP 115/80; PULSE 82; RESP 14; O2SAT 95
[2022-12-25 15:52] VITALS: BP 115/80; BP 116/75; PULSE 83; RESP 16; TEMP 36.4; O2SAT 95
[2022-12-25 16:16] LABS: Bedside Glucose 162 mg/dL (74-106)
[2022-12-25] MEDS: 0.9 % NaCl (Sterile) Posiflush 10 mL IV (16:28)
[2022-12-25 16:30] VITALS: BP 115/80
== END 2022-12-25 16:35 | disposition home or self-care (01) ==
LOC: SDC 07:36 → AC 07:36
PROVIDERS: Anesthesiology; PCP Nurse Practitioner; Referring Provider Surgery; Visit Provider Surgery
PROC: 0HBV0ZZ Excision of Bilateral Breast, Open Approach (ICD-10-PCS; CPT 19302; principal; 2022-12-25 11:55)
DX: C50.311 Malignant neoplasm of lower-inner quadrant of right female breast (principal); Z79.4 Long term (current) use of insulin; E10.9 Type 1 diabetes mellitus without complications; Z17.0 Estrogen receptor positive status [ER+]; E78.00 Pure hypercholesterolemia, unspecified; F17.290 Nicotine dependence, other tobacco product, uncomplicated; Z79.84 Long term (current) use of oral hypoglycemic drugs; Z79.899 Other long term (current) drug therapy; Z92.21 Personal history of antineoplastic chemotherapy; Z86.16 Personal history of COVID-19
CPT/HCPCS: 19301; 00404; 19281; 38792; 76098; 81025; 82962; 88305; 88307; 88331; 88332; 88341; 88342; A4648; A9541; J7120; A4216; J2405; J3490; Q9968

== ENCOUNTER → 2023-03-26 | Outpatient (CLI) | payer OTHER, SELFPAY ==
--- NOTE | 2023-03-26 09:30 | BD_ITS ---
STUDY: DUAL ENERGY X-RAY ABSORPTIOMETRY / DXA REASON FOR EXAM: Female, 43 years old. Screening for osteoporosis -- OSTEOPOROSIS TECHNIQUE: Bone Mineral Density (BMD) measurements of lumbar spine and bilateral hips were obtained. COMPARISON: None. FINDINGS: Lumbar Spine (L1-L4): g/cm2 (0.949) / T-score (-0.8) / Z-score (-0.3) Findings are suggestive of normal bone density with a low fracture risk. Left Femur Total: g/cm2 (1.016) / T-score (0.6) / Z-score (0.9) Left Femoral Neck: g/cm2 (0.908) / T-score (0.5) / Z-score (1.0) Right Femur Total: g/cm2 (1.001) / T-score (0.5) / Z-score (0.8) Right Femoral Neck: g/cm2 (0.849) / T-score (0.0) / Z-score (0.4) BD/Dexa Bone Density Study IMPRESSION: The patient is considered normal as outlined below according to World Felipe Organization (WHO) criteria with a low fracture risk. Reference Information: The T-score is the number of standard deviations above or below the standard which is normal for young adults at their peak bone mineral density. The World Health Organization (WHO) interprets the T-scores as follows: Above -1 Normal bone density Between -1 and -2.5 Osteopenia Equal to / or below -2.5 Osteoporosis As a practical clinical guideline, osteopenia may be graded as follows: Mild -1 through -1.5 Moderate -1.6 through -2.0 Severe -2.1 through -2.4 The Z-score is the number of standard deviations above or below age-matched controls. A Z-score of less than -1.5 would be considered abnormal. References: 1. NIH Osteoporosis and Related Bone Diseases www osteo.org 2. International Society for Clinical Densitometry www iscd.org 3. National Osteoporosis Foundation www nof.org Electronically Signed: Ziggy Robertson MD at 14:47 EST ,
--- OUTSIDE RECORDS SUMMARY | 2023-03-26 09:45 | XMS RPT_ITS | CCD ---
Author Name Unknown Address [address] [place] [address] Organization [facility] Care Team Providers Care Superintendent Sales Name Role Phone Unavailable Primary Care Provider UnavailDAINA Haley Referring Unavailable DAINA VAUGHAN Referring Unavailable ESTELA TAN Attending Unavailable BALJIT DESHPANDE Referring Unavailable LATISHA JOSE Luciana Primary Care Unavailable LATISHA, JOSE Luciana Primary Care Unavailable GOOD, JOSE L Referring Unavailable ESTELA TAN Attending Unavailable ROSANNA BLACKWOOD Attending Unavailable ROSANNA BLACKWOOD Referring Unavailable LATISHA, JOSE Luciana Primary Care Unavailable OMA ALVARADO MD Attending Unavailable GOOD LOG SNAKER-ORE DRESSING ENGINEER, JOSE L Primary Care Unav ailable MARINELLI LOG SNAKER-ORE DRESSING ENGINEER, SERVANDO Attending Unavaila ble GOOD LOG SNAKER-ORE DRESSING ENGINEER, JOSE L Primary Care Unav ailable MARINELLI LOG SNAKER-ORE DRESSING ENGINEER, SERVANDO Attending Unavaila ble GOOD LOG SNAKER-ORE DRESSING ENGINEER, JOSE L Primary Care Unav ailable Good, Jose Primary Care Provider [phone] Nolberto VALLES, Corey Gatica Unavailable [phone] Allergies Allergy Classification Reported Allergen(s) Allergy Type Date of Onset Reaction(s) Facility (1 source) Acetaminophen / HYDROcodone Drug Allergy 11-21-2020 [facility] (1 source) Codeine Drug Allergy 11-21-2020 [facility] (1 source) Penicillins Propensity to adverse reactions to drug 11-21-2020 [facility] Medications Current Medications Medication Drug Class(es) Dates Sig (Normalized) Sig (Original) fenofibrate 145 mg oral tablet (1 source) Peroxisome Proliferator Receptor alpha Agonist take 1 tablet by mouth once daily fenofibrate (TRICOR) 145 MG tablet Take 145 mg by mouth daily 0 Active glyBURIDE 5 mg oral tablet (1 source) Sulfonylurea take 1 tablet by mouth once daily at breakfast glyBURIDE (DIABETA) 5 MG tablet Take 5 mg by mouth daily (with breakfast) 0 Active insulin aspart, human 100 unt/ml injectable solution (1 source) Insulin Analog insulin aspart (NOVOLOG) 100 UNIT/ML injection vial Inject into the skin 3 times daily (before meals) 0 Active SITagliptin 100 mg oral tablet (1 source) Dipeptidyl Peptidase 4 Inhibitor take 1 tablet by mouth once daily SITagliptin (JANUVIA) 100 MG tablet Take 100 mg by mouth daily 0 Active sodium chloride flush 0.9 % injection 3 mL (1 source) Start: 11-21-2020 sodium chloride flush 0.9 % injection 3 mL SUMAtriptan 50 mg oral tablet (1 source) Serotonin-1b and Serotonin-1d Receptor Agonist take 1 tablet by mouth once as needed SUMAtriptan (IMITREX) 50 MG tablet Take 50 mg by mouth once as needed for Migraine 0 Active topiramate 25 mg oral capsule (1 source) take 1 capsule by mouth twice daily topiramate (TOPAMAX SPRINKLE) 25 MG capsule Take 25 mg by mouth 2 times daily 0 Active Completed/Discontinued Medications Medication Drug Class(es) Dates Sig (Normalized) Sig (Original) 1 ml diphenhydrAMINE hydrochloride 50 mg/ml cartridge (1 source) Histamine-1 Receptor Antagonist Start: 11-21-2020 End: 11-21-2020 diphenhydrAMINE (BENADRYL) injection 25 mg 1 ml ketorolac tromethamine 30 mg/ml cartridge (1 source) Nonsteroidal Anti-inflammatory Drug, Cyclooxygenase Inhibitor Start: 11-21-2020 End: 11-21-2020 ketorolac (TORADOL) 30 MG/ML injection 2 ml metoclopramide 5 mg/ml prefilled syringe (1 source) Dopamine-2 Receptor Antagonist Start: 11-21-2020 End: 11-21-2020 metoclopramide (REGLAN) injection 10 mg 50 ml sodium chloride 9 mg/ml injection (1 source) Start: 11-21-2020 End: 11-21-2020 0.9 % sodium chloride bolus Problems Problem Classification Problem Date Documented Da te Episodic/Chronic Headache; including migraine (1 source) Acute headache; Translations: [Acute nonintractable headache, unspecified headache type] Episodic Nonmalignant breast conditions (1 source) Breast problem; Translations: [Disorder of breast, unspecified] Episodic Results Test Name Value Interpretation Reference Range Facil ity Vital Signs Date Time Vital Sign Value Performing Clinician Faci lity 11-21-2020 22:27-0400 Diastolic blood pressure 78 mm[Hg] Ambika Jones MD Work Phone: [facility] Work Phone: 11-21-2020 22:27-0400 Heart rate 53 /min Ambika Jones MD Work Phone: [facility] Work Phone: 11-21-2020 22:27-0400 Respiratory rate 14 /min Ambika Jones MD Work Phone: [facility] Work Phone: 11-21-2020 22:27-0400 SaO2% (BldA) [Mass fraction] 97 % Ambika Jones MD Work Phone: [facility] Work Phone: 11-21-2020 22:27-0400 Systolic blood pressure 125 mm[Hg] Ambika Jones MD Work Phone: [facility] Work Phone: 11-21-2020 20:25-0400 Body height 157.5 cm Ambika Jones MD Work Phone: [facility] Work Phone: 11-21-2020 20:25-0400 Body mass index (BMI) [Ratio] 29.26 kg/m2 Ambika Jones MD Work Phone: [facility] Work Phone: 11-21-2020 20:25-0400 Body temperature 97 [degF] Ambika Jones MD Work Phone: [facility] Work Phone: 11-21-2020 20:25-0400 Body weight 72.58 kg Ambika Jones MD Work Phone: [facility] Work Phone: Encounters Encounter Date Encounter Type Care Provider Facility Start: 2023 Telephone encounter Corey Arvizu MD Work Phone: [facility] Gynecologic Oncology Start: 08-26-2022 End: 08-27-2022 ambulatory SERVANDO YVES LOG SNAKER-ORE DRESSING ENGINEER Facility:A Start: 08-21-2022 End: 08-22-2022 ambulatory SERVANDO MARINELLI LOG SNAKER-ORE DRESSING ENGINEER Facility:B Start: 08-13-2022 End: 08-14-2022 ambulatory OMA ALVARADO MD Facility:A Start: 07-22-2022 End: 07-22-2022 ambulatory JOSE GOOD [facility] Start: 07-08-2022 End: 07-09-2022 ambulatory ROSANNA BLACKWOOD [facility] Start: 06-25-2022 End: 06-25-2022 Orders Only Sherin Vaughan MD Work Phone: Mammography Procedures Date Procedure Procedure Detail Performing Clinician Start: 06-25-2022 Mammography Sherin christian MD Work Phone: Start: 11-21-2020 Ct head/brain w/o co ntrast material Ambika Jones MD Work Phone: Plan of Treatment Date Care Activity Detail Author Start: 02-07-2028 Zoster Vaccines (1 of 2) Zoster Vaccines (1 of 2) [facility] Start: 06-26-2023 Mammography MAMMOGRAM [facility] Start: 11-28-2022 Influenza vaccination Influenza Vaccine (#1) [facility] Start: 03-30-2022 DEPRESSION ASSESSMENT DEPRESSION ASSESSMENT [facility] Start: 11-28-2021 Influenza vaccination INFLUENZA (#1) [facility] Start: 04-04-2021 COVID-19 VACCINE (3 - Booster for Moderna series) COVID-19 VACCINE (3 - Booster for Moderna series) [facility] Start: 04-04-2021 COVID-19 Vaccine (3 - Moderna series) COVID-19 Vaccine (3 - Moderna series) [facility] Start: 11-28-2020 Influenza vaccination Flu vaccine (#1) [facility] Work Phone: Start: 2018 Screening for malignant neoplasm of breast Mammogram [facility] Start: 02-07-2008 HPV TESTING HPV TESTING [facility] Start: 02-07-2008 Screening for malignant neoplasm of cervix [facility] Start: 1999 PAP TESTING PAP TESTING [facility] Start: 1999 Screening for malignant neoplasm of cervix Pap Smear [facility] Start: 1997 DTaP/Tdap/Td Vaccines (1 - Tdap) DTaP/Tdap/Td Vaccines (1 - Tdap) [facility] Start: 1997 Hepatitis A Vaccines (1 of 2 - Risk 2-dose series) Hepatitis A Vaccines (1 of 2 - Risk 2-dose series) [facility] Start: 1997 Urine microalbumin profile DTAP,TDAP,TD (1 - Tdap) [facility] Start: 02-07-1996 HEPATITIS C SCREENING HEPATITIS C SCREENING [facility] Start: 02-07-1996 Hepatitis C screening Hepatitis C Screening [facility] Start: 02-07-1996 HIV SCREENING HIV SCREENING [facility] Start: 1990 COVID-19 Vaccine (1) COVID-19 Vaccine (1) [facility] Work Phone: Start: 1990 Depression Screening Depression Screening [facility] Start: 02-07-1988 Diabetic foot examination Diabetes: Foot Exam [facility] Start: 02-07-1988 Glaucoma screening Diabetes: Retinopathy Screening [facility] Start: 02-07-1988 Preventive dental service Diabetes: Dental Exam [facility] Start: 02-07-1984 Pneumococcal Vaccine: Pediatrics (0 to 5 Years) and At-Risk Patients (6 to 64 Years) (1 - PCV) Pneumococcal Vaccine: Pediatrics (0 to 5 Years) and At-Risk Patients (6 to 64 Years) (1 - PCV) [facility] Start: 1979 MMR Vaccines (1 of 1 - Standard series) MMR Vaccines (1 of 1 - Standard series) [facility] Start: 1978 Hemoglobin A1c measurement Diabetes: Hemoglobin A1C [facility] Start: 1978 HEPATITIS B (1 of 3 - 3-dose series) HEPATITIS B (1 of 3 - 3-dose series) [facility] Start: 1978 Hepatitis B Vaccines (1 of 3 - 3-dose series) Hepatitis B Vaccines (1 of 3 - 3-dose series) [facility] Start: 1978 HIV screening HIV Screening [facility] Start: 1978 Lipid panel Lipid Panel [facility] Start: 1978 Screening for malignant neoplasm of colon [facility] End: 07-25-2023 US BIOPSY BREAST RIGHT US BIOPSY BREAST RIGHT Radiology Routine Breast disorder 1 Occurrences starting 06/25/2022 until 07/25/2023 [facility] Work Phone: Payers Date Payer Category Payer Unknown MMO MMO [employer] PPO [id number] 2022-Present [phone] [address] [place] [address] PPO [id number] 2022 Unknown [id number] 1978 Unknown [id number] 1978 Unknown [id number] 1978 Unknown [id number] 1978 Unknown [id number] 1978 Unknown [id number] 1978 Unknown [id number] Social History Date Type Detail Facility Start: 11-21-2020 Tobacco smoking status WAIS Current every day smoker [facility] History of tobacco use [facility] Start: 11-21-2020 Tobacco use and exposure Never used [facility] Start: 11-21-2020 Alcohol intake Ex-drinker (finding) [facility] Work Phone: Start: 1980 Sex Assigned At Not on file [facility] Work Phone: Exposure to SARS-CoV-2 (event) Not sure [facility] Tobacco smoking status WAIS Tobacco smoking consumption unknown [facility] Work Phone: Gender identity Not on file [facility] Telephone encounter Note 2023 Telephone Encounter - Deidre Vaughan - 2023 4:43 PM EST Note Date & Type Note Facility 2023 Telephone encounter Note Form atting of this note might be different from the original. Called pt to see if machine feeder raw stock appointment could be rescheduled. Left message to call office. [facility] Note 2023 Telephone Encounter - Deidre Vaughan - 2023 4:43 PM EST Note Date & Type Note Facility 2023 Miscellaneous Notes Formattin g of this note might be different from the original. Called pt to see if machine feeder raw stock appointment could be rescheduled. Left message to call office. documented in this encounter [facility] Progress note 06-25-2022 Note Date & Type Note Facility 06-25-2022 Note HNO ID: [id number] Author: YANNICK Burt Service: Radiology Author Type: Technologist Type: Progress Notes Filed: 06/25/2022 3:30 PM Note Text: Radiology Service Progress Note PATIENT NAME: Isabelle Rodrigez DATE OF SERVICE: June 25, 2022 TIME: 3:30 PM PATIENT IDENTITY VERIFICATION COMPLETED USING TWO (2) IDENTIFIERS: Name and Date of confirmed by patient verbally. FALL SCREENING: Has the patient had 2 falls in the last year or 1 fall with injury or currently using an Ambulatory Assistive Device (Walker, Cane, Wheelchair, Crutches, etc.)? No PATIENT GENDER DATA: Female. status: : No status: NO. PATIENT RELEVANT IMPLANT DATA REVIEWED: Not Applicable RADIOLOGY DEPARTMENT: Ultrasound PERIPHERAL IV DATA: Not applicable SIGNED BY: YANNICK Burt June 25, 2022 3:30 PM [facility] Progress note 06-25-2022 Note Date & Type Note Facility 06-25-2022 Note HNO ID: [id number] Author: RT Roberto(R) Service: Radiology Author Type: Technologist Type: Progress Notes Filed: 06/25/2022 2:34 PM Note Text: Radiology Service Progress Note PATIENT NAME: Isabelle Rodrigez DATE OF SERVICE: June 25, 2022 TIME: 2:33 PM PATIENT IDENTITY VERIFICATION COMPLETED USING TWO (2) IDENTIFIERS: Name and Date of confirmed by patient verbally. FALL SCREENING: Has the patient had 2 falls in the last year or 1 fall with injury or currently using an Ambulatory Assistive Device (Walker, Cane, Wheelchair, Crutches, etc.)? No PATIENT GENDER DATA: Female. status: : No status: NO. PATIENT RELEVANT IMPLANT DATA REVIEWED: Not Applicable RADIOLOGY DEPARTMENT: Mammography PERIPHERAL IV DATA: Not applicable SIGNED BY: RT Viji(R) June 25, 2022 2:33 PM [facility] History of Present illness Narrative 06-25-2022 RT Roberto(R) - 06/25/2022 1:20 PM EDT Note Date & Type Note Facility 06-25-2022 History of Presen t illness Narrative Radiology Service Progress Note PATIENT NAME: Isabelle Rodrigez DATE OF SERVICE: June 25, 2022 TIME: 2:33 PM PATIENT IDENTITY VERIFICATION COMPLETED USING TWO (2) IDENTIFIERS: Name and Date of confirmed by patient verbally. FALL SCREENING: Has the patient had 2 falls in the last year or 1 fall with injury or currently using an Ambulatory Assistive Device (Walker, Cane, Wheelchair, Crutches, etc.)? No PATIENT GENDER DATA: Female. status: : No status: NO. PATIENT RELEVANT IMPLANT DATA REVIEWED: Not Applicable RADIOLOGY DEPARTMENT: Mammography PERIPHERAL IV DATA: Not applicable SIGNED BY: RT Viji(R) June 25, 2022 2:33 PM documented in this encounter [facility] Evaluation note Note Date & Type Note Facility documented in this encounter [facility] Work Phone: Evaluation note Note Date & Type Note Facility documented in this encounter [facility] Discharge instructions Attachments Note Date & Type Note Facility Hospital Discharge instructions The following attachments cannot be sent through Care Everywhere.Headache (Portuguese)documented in this encounter [facility] Work Phone: Reason for referral (narrative) Diagnostic Procedure Only (Routine) - Pending Review Note Date & Type Note Facility Referral ID Status Reason Start Date Expiration Date Visits Requested Visits Authorized [id number] Pending Review Auto-Generat ed Referral 06/25/2022 07/25/2023 1 1 [facility] Summary Purpose Family History No Family History Records FoundNo Family History Records FoundNo Family History Records FoundNo Family History Records FoundNo Family History Records Found Advance Directives No Advanced Directives Records FoundNo Advanced Directives Records FoundNo Advanced Directives Records FoundNo Advanced Directives Records FoundNo Advanced Directives Records Found Additional Source Comments Reason for Visit (unrecogniz ed section and content) Scheduled Active and Recently Administ ered Medications (unrecognized section and content) No Frequency Medication Order 11/19/2020 11/20/2020 11/21/2020 ketorolac (TORADOL) 30 MG/ML injection (COMPLETED) Starting on Thu11/21/20 at 2156, For 1 dose, JEAN ACOSTA: cabinet override 2199 (Not Given - Pr ovider: Jean Acosta, RN - Reason: Patient/family refused)221 (Given - Provider: Jean Acosta, RN) Linked Groups Order Group 1: Saline lock IV (COMPLETED) Routine, CONTINUOUS, Starting on Thu11/21/20 at 204, Until Specified And sodium chloride flush 0.9 % injection 3 mLJump to med 3 mL, IntraVENous, EVERY 8 HOURS, First dose on Thu11/21/20 at 2034
Flush line with 3-5 mL
INFORMATION SOURCE (unrecogn ized section and content) DATE CREATED AUTHOR AUTHOR'S ORGANIZ ATION 06/30/2022 [facility] DATE CREATED AUTHOR AUTHOR'S ORGANIZ ATION 07/24/2022 [facility] DATE CREATED AUTHOR AUTHOR'S ORGANIZ ATION 09/08/2022 [facility] ([place] DATE CREATED AUTHOR AUTHOR'S ORGANIZ ATION 02/08/2023 [facility] Source Comments (unrecognize d section and content) In the event this informatio n is protected by the Federal Confidentiality of Alcohol and Drug Abuse Patient Records regulations: The Federal rules restrict any use of the information to criminally investigate or prosecute any alcohol or drug abuse patient.[facility] the event this information is protected by the Federal Confidentiality of Alcohol and Drug Abuse Patient Records regulations: The Federal rules restrict any use of the information to criminally investigate or prosecute any alcohol or drug abuse patient.[facility] Care Teams (unrecognized sec tion and content) FOR RECORDS PERTAINING TO PATIENTS WHO ARE OR HAVE BEEN ENROLLED IN A CHEMICAL DEPENDENCY/SUBSTANCEABUSE PROGRAM, SOME INFORMATION MAY BE OMITTED. This clinical summary was aggregated from multiple sources. Caution should be exercised in using it in the provision of clinical care. This summary normalizes information from multiple sources, and as a consequence, information in this document may materially change the coding, format and clinical context of patient data. In addition, data may be omitted in some cases. CLINICAL DECISIONS SHOULD BE BASED ON THE PRIMARY CLINICAL RECORDS. [facility]. provides no warranty or guarantee of the accuracy or completeness of information in this document.
== END | disposition home or self-care (01) ==
LOC: OPBD 09:24
PROVIDERS: PCP Nurse Practitioner; Referring Provider Nurse Practitioner Family; Visit Provider Nurse Practitioner Family
DX: Z13.820 Encounter for screening for osteoporosis (principal)
CPT/HCPCS: 77080

== ENCOUNTER → 2023-04-13 | Outpatient (CLI) | payer OTHER, SELFPAY ==
--- NOTE | 2023-04-13 09:07 | ECHOLONC_ITS ---
Reason For Study: Chemotherapy Procedure This was a limited 2D transthoracic echocardiogram. Myocardial strain analysis was performed in this exam to aid in the assessment of cardiac function. Exam performed in department. Left Ventricle Normal LV size. Left ventricular systolic function is normal. The estimated ejection fraction is 60 %. No regional wall motion abnormalities noted. Right Ventricle Normal RV size. Normal systolic function. Atria Normal left atrium. Normal right atrium. Mitral Valve Normal mitral valve. Tricuspid Valve Normal tricuspid valve. Aortic Valve Trisinus/trileaflet aortic valve. Pulmonic Valve Normal pulmonic valve. Great Vessels Normal aortic root. The pulmonary artery is normal size. Normal inferior vena cava. Pericardium/Pleural No pericardial effusion. MMode/2D Measurements & Calculations LVIDd: 4.7 cm IVSd: 0.97 cm Ao root diam: 3.1 cm LVIDs: 2.9 cm LVPWd: 1.0 cm LA dimension: 3.6 cm FS: 38.1 % LAV(MOD-bp): 42.5 ml LVAd ap4: 26.6 cm2 SV(MOD-sp4): 48.1 ml LAV(MOD-bp) Indexed: 23.9 ml/m2 LVLd ap4: 7.6 cm LAV(MOD-sp2): 48.2 ml EDV(MOD-sp4): 76.7 ml LAV(MOD-sp4): 34.4 ml EDV(sp4-el): 79.2 ml LVAs ap4: 15.2 cm2 LVLs ap4: 6.7 cm ESV(MOD-sp4): 28.6 ml ESV(sp4-el): 29.1 ml EF(MOD-sp4): 62.7 % EF(sp4-el): 63.3 % SV(sp4-el): 50.2 ml LA A4 area: 14.7 cm2 RA A4 area: 14.8 cm2 Time Measurements MV dec time: 0.17 sec Doppler Measurements & Calculations MV E max james: 85.4 cm/sec Lat Peak E' James: 14.2 cm/sec Med Peak E' James: 9.4 cm/sec MV A max james: 70.5 cm/sec E/E' lat: 6.0 E/E' med: 9.1 MV E/A: 1.2 MV dec slope: 500.0 cm/sec2 ECHO/ONC Echo, Limited Study Interpretation Summary Normal LV size. Left ventricular systolic function is normal. The estimated ejection fraction is 60 %. The global longitudinal strain is normal. The global longitudinal strain = -19 % (normal). Ordering Physician: Myrna Szymanski Referring Physician: Myrna Szymanski Performed By: Eliseo Chappell RCS
--- OUTSIDE RECORDS SUMMARY | 2023-04-13 09:28 | XMS RPT_ITS | CCD ---
Author Name Unknown Address [address] [facility] [address] [place] [address] Organization [facility] Care Team Providers Care Database Management Specialist Name Role Phone Unavailable Primary Care Provider [...] Unavailable OMA ALVARADO MD Attending Unavailable GOOD HYDRO OPERATOR-EMERGENCY RESPONSE OFFICER, JOSE L Primary Care Unav ailable MARINELLI HYDRO OPERATOR-EMERGENCY RESPONSE OFFICER, SERVANDO Attending Unavaila ble GOOD HYDRO OPERATOR-EMERGENCY RESPONSE OFFICER, JOSE L Primary Care Unav ailable MARINELLI HYDRO OPERATOR-EMERGENCY RESPONSE OFFICER, SERVANDO Attending Unavaila ble GOOD HYDRO OPERATOR-EMERGENCY RESPONSE OFFICER, JOSE L Primary Care Unav ailable Good, Jose Primary Care Provider Nolberto VALLES, Corey Gatica Unavailable [phone] Allergies Allergy Classification Reported Allergen(s) Allergy Type Date of Onset Reaction(s) Facility (1 source) Acetaminophen / HYDROcodone Drug Allergy 11-21-2020 [facility] (1 source) Codeine Drug Allergy 11-21-2020 [facility] (1 source) Penicillins Propensity to adverse reactions to drug 11-21-2020 [facility] Medications Current Medications Medication Drug Class(es) [...] 14 /min Ambika Jones MD Work Phone: [facility] Work Phone: 11-21-2020 22:27-0400 SaO2% (BldA) [Mass fraction] 97 % Ambika Jones MD Work Phone: [facility] Work Phone: 11-21-2020 22:27-0400 Systolic blood pressure 125 mm[Hg] Ambika Jones MD Work Phone: [facility] Work Phone: 11-21-2020 20:25-0400 Body height 157.5 cm Ambika Jones MD Work Phone: [facility] Work Phone: 11-21-2020 20:25-0400 Body mass index (BMI) [Ratio] 29.26 kg/m2 Ambika Jones MD Work Phone: [facility] Work Phone: 11-21-2020 20:25-0400 Body temperature 97 [degF] Ambika Jones MD Work Phone: [facility] Work Phone: 11-21-2020 20:25-0400 Body weight 72.58 kg Ambika Jones MD Work Phone: [facility] Work Phone: Encounters Encounter Date Encounter Type Care Provider Facility Start: 2023 Telephone encounter Corey Arvizu MD Work Phone: [facility] Gynecologic Oncology Start: 08-26-2022 End: 08-27-2022 ambulatory SERVANDO YVES HYDRO OPERATOR-EMERGENCY RESPONSE OFFICER Facility:A Start: 08-21-2022 End: 08-22-2022 ambulatory SERVANDO MARINELLI HYDRO OPERATOR-EMERGENCY RESPONSE OFFICER Facility:B Start: 08-13-2022 End: 08-14-2022 ambulatory OMA ALVARADO MD Facility:A Start: 07-22-2022 End: 07-22-2022 ambulatory JOSE GOOD [facility] Start: 07-08-2022 End: 07-09-2022 ambulatory ROSANNA BLACKWOOD [facility] Start: 06-25-2022 End: 06-25-2022 Orders Only Sherin Vaughan MD Work Phone: Mammography Procedures Date Procedure Procedure Detail Performing Clinician Start: 06-25-2022 Mammography Sherin christian MD Work Phone: Start: 11-21-2020 Ct head/brain w/o co ntrast material Ambika Jones MD Work Phone: Plan of Treatment Date Care Activity Detail Author Start: 02-07-2028 Zoster Vaccines (1 of 2) Zoster Vaccines (1 of 2) [facility] Start: 06-26-2023 Mammography MAMMOGRAM [facility] Start: 11-28-2022 Influenza vaccination Influenza Vaccine (#1) [facility] Start: 03-30-2022 DEPRESSION ASSESSMENT DEPRESSION ASSESSMENT [facility] Start: 11-28-2021 Influenza vaccination INFLUENZA (#1) [facility] Start: 04-04-2021 COVID-19 VACCINE (3 - Booster for Moderna series) COVID-19 VACCINE (3 - Booster for Moderna series) [facility] Start: 04-04-2021 COVID-19 Vaccine (3 - Moderna series) COVID-19 Vaccine (3 - Moderna series) [facility] Start: 11-28-2020 Influenza vaccination Flu vaccine (#1) [facility] Work Phone: Start: 2018 Screening for malignant neoplasm of breast Mammogram [facility] Start: 02-07-2008 HPV TESTING HPV TESTING [facility] Start: 02-07-2008 Screening for malignant neoplasm of cervix [facility] Start: 1999 PAP TESTING PAP TESTING [facility] Start: 1999 Screening for malignant neoplasm of cervix Pap Smear [facility] Start: 1997 DTaP/Tdap/Td Vaccines (1 - Tdap) DTaP/Tdap/Td Vaccines (1 - Tdap) [facility] Start: 1997 Hepatitis A Vaccines (1 of 2 - Risk 2-dose series) Hepatitis A Vaccines (1 of 2 - Risk 2-dose series) [facility] Start: 1997 Urine microalbumin profile DTAP,TDAP,TD (1 - Tdap) [facility] Start: 02-07-1996 HEPATITIS C SCREENING HEPATITIS C SCREENING [facility] Start: 02-07-1996 Hepatitis C screening Hepatitis C Screening [facility] Start: 02-07-1996 HIV SCREENING HIV SCREENING [facility] Start: 1990 COVID-19 Vaccine (1) COVID-19 Vaccine (1) [facility] Work Phone: Start: 1990 Depression Screening Depression Screening [facility] Start: 02-07-1988 Diabetic foot examination Diabetes: Foot Exam [facility] Start: 02-07-1988 Glaucoma screening Diabetes: Retinopathy Screening [facility] Start: 02-07-1988 Preventive dental service Diabetes: Dental Exam [facility] Start: 02-07-1984 Pneumococcal Vaccine: Pediatrics (0 to 5 Years) and At-Risk Patients (6 to 64 Years) (1 - PCV) Pneumococcal Vaccine: Pediatrics (0 to 5 Years) and At-Risk Patients (6 to 64 Years) (1 - PCV) [facility] Start: 1979 MMR Vaccines (1 of 1 - Standard series) MMR Vaccines (1 of 1 - Standard series) [facility] Start: 1978 Hemoglobin A1c measurement Diabetes: Hemoglobin A1C [facility] Start: 1978 HEPATITIS B (1 of 3 - 3-dose series) HEPATITIS B (1 of 3 - 3-dose series) [facility] Start: 1978 Hepatitis B Vaccines (1 of 3 - 3-dose series) Hepatitis B Vaccines (1 of 3 - 3-dose series) [facility] Start: 1978 HIV screening HIV Screening [facility] Start: 1978 Lipid panel Lipid Panel [facility] Start: 1978 Screening for malignant neoplasm of colon [facility] End: 07-25-2023 US BIOPSY BREAST RIGHT US BIOPSY BREAST RIGHT Radiology Routine Breast disorder 1 Occurrences starting 06/25/2022 until 07/25/2023 [facility] Work Phone: Payers Date Payer Category Payer Unknown MMO M[employer] PPO [id number] 2022-Present [phone] [address] [place] [address] PPO [id number] 2022 Unknown [id number] 1978 Unknown [id number] 1978 Unknown [id number] 1978 Unknown [id number] 1978 Unknown [id number] 1978 Unknown [id number] 1978 Unknown [id number] Social History Date Type Detail Facility Start: 11-21-2020 Tobacco smoking status NEIS Current every day smoker [facility] History of tobacco use [facility] Start: 11-21-2020 Tobacco use and exposure Never used [facility] Start: 11-21-2020 Alcohol intake Ex-drinker (finding) [facility] Work Phone: Start: 1978 Sex Assigned At Not on file [facility] Work Phone: Exposure to SARS-CoV-2 (event) Not sure [facility] Tobacco smoking status NEIS Tobacco smoking consumption unknown [facility] Work Phone: Gender identity Not on file [facility] Telephone encounter Note 2023 Telephone Encounter - Deidre Vaughan - 2023 4:43 PM EST Note Date & Type Note Facility 2023 Telephone encounter Note Form atting of this note might be different from the original. Called pt to see if manpower development advisor appointment could be rescheduled. Left message to call office. [facility] Note 2023 Telephone Encounter - Deidre Vaughan - 2023 4:43 PM EST Note Date & Type Note Facility 2023 Miscellaneous Notes Formattin g of this note might be different from the original. Called pt to see if manpower development advisor appointment could be rescheduled. Left message to call office. documented in this encounter [facility] Progress note 06-25-2022 Note Date & Type Note Facility 06-25-2022 Note HNO ID: [id number] Author: YANNICK Burt Service: Radiology Author Type: [...] YANNICK Burt June 25, 2022 3:30 PM [facility] Progress note 06-25-2022 Note Date & Type Note Facility 06-25-2022 Note HNO ID: [id number] Author: RT Roberto(R) Service: Radiology Author Type: [...] RT Viji(R) June 25, 2022 2:33 PM [facility] History of Present illness Narrative 06-25-2022 [...] 2022 2:33 PM documented in this encounter [facility] Evaluation note Note Date & Type Note Facility documented in this encounter [facility] Work Phone: Evaluation note Note Date & Type Note Facility documented in this encounter [facility] Discharge instructions Attachments Note Date & Type Note Facility Hospital Discharge instructions The following attachments cannot be sent through Care Everywhere.Headache (Armenian)documented in this encounter [facility] Work Phone: Reason for referral (narrative) Diagnostic Procedure Only (Routine) - Pending Review Note Date & Type Note Facility Referral ID Status Reason Start Date Expiration Date Visits Requested Visits Authorized [id number] Pending Review Auto-Generat ed Referral 06/25/2022 07/25/2023 1 1 [facility] Summary Purpose Family History No Family History [...] - Reason: Patient/family refused)221 (Given - Provider: eJan Acosta, RN) Linked Groups Order Group 1: Saline lock IV (COMPLETED) Routine, CONTINUOUS, Starting on Thu11/21/20 at 204, Until Specified And sodium chloride flush 0.9 % injection 3 mLJump to med 3 mL, IntraVENous, EVERY 8 HOURS, First dose on Thu11/21/20 at 2034
Flush line with 3-5 mL
INFORMATION SOURCE (unrecogn ized section and content) DATE CREATED AUTHOR AUTHOR'S ORGANIZ ATION 06/30/2022 [facility] DATE CREATED AUTHOR AUTHOR'S ORGANIZ ATION 07/24/2022 [facility] DATE CREATED AUTHOR AUTHOR'S ORGANIZ ATION 09/08/2022 [facility] ([place]) DATE CREATED AUTHOR AUTHOR'S ORGANIZ ATION 02/08/2023 [facility] Source Comments (unrecognize d section and content) In the event this informatio n is protected by the Federal Confidentiality of Alcohol and Drug Abuse Patient Records regulations: The Federal rules restrict any use of the information to criminally investigate or prosecute any alcohol or drug abuse patient.[facility] the event this information is protected by the Federal Confidentiality of Alcohol and Drug Abuse Patient Records regulations: The Federal rules restrict any use of the information to criminally investigate or prosecute any alcohol or drug abuse patient.[facility] Care Teams (unrecognized sec tion and content) [...] BE BASED ON THE PRIMARY CLINICAL RECORDS. [facility]. provides no warranty or guarantee of the accuracy or completeness of information in this document.
== END | disposition home or self-care (01) ==
PROVIDERS: PCP Nurse Practitioner; Referring Provider Internal Medicine Hematology & Oncology; Visit Provider Internal Medicine Hematology & Oncology
DX: C50.911 Malignant neoplasm of unspecified site of right female breast (principal); Z51.81 Encounter for therapeutic drug level monitoring; Z79.899 Other long term (current) drug therapy
CPT/HCPCS: 93308; 93356

== ENCOUNTER → 2023-04-16 | Outpatient (CLI) | payer OTHER, SELFPAY | END | disposition home or self-care (01) | LOC: LABSPEC 10:12 | PROVIDERS: PCP Nurse Practitioner; Referring Provider Nurse Practitioner Family; Visit Provider Nurse Practitioner Family | DX: R05.9 Cough, unspecified (principal); R52 Pain, unspecified | CPT/HCPCS: 87631 ==

== ENCOUNTER → 2023-05-18 | Outpatient (CLI) | payer OTHER, SELFPAY ==
--- OUTSIDE RECORDS SUMMARY | 2023-05-18 16:54 | XMS RPT_ITS | CCD ---
Author Name Unknown Address [address] [place] [address] Organization [facility] Care Team Providers Care Freight Loading Supervisor Name Role Phone Unavailable Primary Care Provider UnavailDAINA Haley Referring Unavailable DAINA VAUGHAN Referring Unavailable ESTELA TAN Attending Unavailable BALJIT DESHPANDE Referring Unavailable LATISHA, JOSE Luciana Primary Care Unavailable GOOD, JOSE L Primary Care Unavailable GOOD, JOSE L Referring Unavailable ESTELA TAN Attending Unavailable ROSANNA BLACKWOOD Attending Unavailable ROSANNA BLACKWOOD Referring Unavailable GOOD, JOSE Luciana Primary Care Unavailable OMA ALVARADO MD Attending Unavailable GOOD THERAPEUTIC RECREATION ASSISTANT-DISABILITY REPRESENTATIVE, JOSE L Primary Care Unav ailable MARINELLI THERAPEUTIC RECREATION ASSISTANT-DISABILITY REPRESENTATIVE, SERVANDO Attending Unavaila ble GOOD THERAPEUTIC RECREATION ASSISTANT-DISABILITY REPRESENTATIVE, JOSE L Primary Care Unav ailable MARINELLI THERAPEUTIC RECREATION ASSISTANT-DISABILITY REPRESENTATIVE, SERVANDO Attending Unavaila ble GOOD THERAPEUTIC RECREATION ASSISTANT-DISABILITY REPRESENTATIVE, JOSE L Primary Care Unav ailable Good, Jose Primary Care Provider Nolberto VALLES, Corey Gatica Unavailable [phone] Allergies Allergy Classification Reported Allergen(s) Allergy Type Date of Onset Reaction(s) Facility (1 source) Acetaminophen / HYDROcodone Drug Allergy 11-21-2020 [facility] (1 source) Codeine Drug Allergy 11-21-2020 [facility] (1 source) Penicillins Propensity to adverse reactions to drug 11-21-2020 [facility] Medications Current Medications Medication Drug Class(es) Dates [...] 78 mm[Hg] Ambika Jones MD Work Phone: [facility] Work Phone: 11-21-2020 22:27-0400 Heart rate 53 /min Ambika Jones MD Work Phone: [facility] Work Phone: 11-21-2020 22:27-0400 Respiratory rate 14 /min Ambika Jones MD Work Phone: [facility] Work Phone: 11-21-2020 22:27-0400 SaO2% (BldA) [Mass fraction] 97 % Abmika Jones MD Work Phone: [facility] Work Phone: 11-21-2020 22:27-0400 Systolic blood pressure 125 mm[Hg] Ambika Jones MD Work Phone: [facility] Work Phone: 11-21-2020 20:25-0400 Body height 157.5 cm Ambika Jones MD Work Phone: [facility] Work Phone: 11-21-2020 20:25-0400 Body mass index (BMI) [Ratio] 29.26 kg/m2 Ambika Jones MD Work Phone: [facility] Work Phone: 11-21-2020 20:25-0400 Body temperature 97 [degF] Ambika Jones MD Work Phone: [facility] Work Phone: 11-21-2020 20:25-0400 Body weight 72.58 kg Ambika Jones MD Work Phone: [facility] Work Phone: Encounters Encounter Date Encounter Type Care Provider Facility Start: 2023 Telephone encounter Corey Arvizu MD Work Phone: [facility] Gynecologic Oncology Start: 08-26-2022 End: 08-27-2022 ambulatory SERVANDO YVES THERAPEUTIC RECREATION ASSISTANT-DISABILITY REPRESENTATIVE Facility:A Start: 08-21-2022 End: 08-22-2022 ambulatory SERVANDO MARINELLI THERAPEUTIC RECREATION ASSISTANT-DISABILITY REPRESENTATIVE Facility:B Start: 08-13-2022 End: 08-14-2022 ambulatory OMA ALVARADO MD Facility:A Start: 07-22-2022 End: 07-22-2022 ambulatory JOSE GOOD [facility] Start: 07-08-2022 End: 07-09-2022 ambulatory ROSANNA BLACKWOOD [facility] Start: 06-25-2022 End: 06-25-2022 Orders Only Sherin Vaughan MD Work Phone: Mammography Procedures Date Procedure Procedure Detail Performing Clinician Start: 06-25-2022 Mammography Sherin christian MD Work Phone: Start: 11-21-2020 Ct head/brain w/o co ntrast material Ambika Jones MD Work Phone: Plan of Treatment Date Care Activity Detail Author Start: 02-07-2028 Zoster Vaccines (1 of 2) Zoster Vaccines (1 of 2) [facility] Start: 06-26-2023 Mammography MAMMOGRAM [facility] Start: 11-28-2022 Influenza vaccination Influenza Vaccine (#1) [facility] Start: 03-30-2022 DEPRESSION ASSESSMENT DEPRESSION ASSESSMENT [facility] Start: 11-28-2021 Influenza vaccination INFLUENZA (#1) [facility] Start: 04-04-2021 COVID-19 VACCINE (3 - Booster for Moderna series) COVID-19 VACCINE (3 - Booster for Moderna series) [facility] Start: 04-04-2021 COVID-19 Vaccine (3 - Moderna series) COVID-19 Vaccine (3 - Moderna series) [facility] Start: 11-28-2020 Influenza vaccination Flu vaccine (#1) [facility] Work Phone: Start: 2018 Screening for malignant neoplasm of breast Mammogram [facility] Start: 02-07-2008 HPV TESTING HPV TESTING [facility] Start: 02-07-2008 Screening for malignant neoplasm of cervix [facility] Start: 1999 PAP TESTING PAP TESTING [facility] Start: 1999 Screening for malignant neoplasm of cervix Pap Smear [facility] Start: 1997 DTaP/Tdap/Td Vaccines (1 - Tdap) DTaP/Tdap/Td Vaccines (1 - Tdap) [facility] Start: 1997 Hepatitis A Vaccines (1 of 2 - Risk 2-dose series) Hepatitis A Vaccines (1 of 2 - Risk 2-dose series) [facility] Start: 1997 Urine microalbumin profile DTAP,TDAP,TD (1 - Tdap) [facility] Start: 02-07-1996 HEPATITIS C SCREENING HEPATITIS C SCREENING [facility] Start: 02-07-1996 Hepatitis C screening Hepatitis C Screening [facility] Start: 02-07-1996 HIV SCREENING HIV SCREENING [facility] Start: 1990 COVID-19 Vaccine (1) COVID-19 Vaccine (1) [facility] Work Phone: Start: 1990 Depression Screening Depression Screening [facility] Start: 02-07-1988 Diabetic foot examination Diabetes: Foot Exam [facility] Start: 02-07-1988 Glaucoma screening Diabetes: Retinopathy Screening [facility] Start: 02-07-1988 Preventive dental service Diabetes: Dental Exam [facility] Start: 02-07-1984 Pneumococcal Vaccine: Pediatrics (0 to 5 Years) and At-Risk Patients (6 to 64 Years) (1 - PCV) Pneumococcal Vaccine: Pediatrics (0 to 5 Years) and At-Risk Patients (6 to 64 Years) (1 - PCV) [facility] Start: 1979 MMR Vaccines (1 of 1 - Standard series) MMR Vaccines (1 of 1 - Standard series) [facility] Start: 1978 Hemoglobin A1c measurement Diabetes: Hemoglobin A1C [facility] Start: 1978 HEPATITIS B (1 of 3 - 3-dose series) HEPATITIS B (1 of 3 - 3-dose series) [facility] Start: 1978 Hepatitis B Vaccines (1 of 3 - 3-dose series) Hepatitis B Vaccines (1 of 3 - 3-dose series) [facility] Start: 1978 HIV screening HIV Screening [facility] Start: 1978 Lipid panel Lipid Panel [facility] Start: 1978 Screening for malignant neoplasm of colon [facility] End: 07-25-2023 US BIOPSY BREAST RIGHT US BIOPSY BREAST RIGHT Radiology Routine Breast disorder 1 Occurrences starting 06/25/2022 until 07/25/2023 [facility] Work Phone: Payers Date Payer Category Payer Unknown MMO MMO [employer] PPO [id number] 2022-Present [phone] [address] [place] [address] PPO [id number] 2022 Unknown [id number] 1978 Unknown [id number] 1978 Unknown [id number] 1978 Unknown [id number] 1978 Unknown [id number] 1978 Unknown [id number] 1978 Unknown [id number] Social History Date Type Detail Facility Start: 11-21-2020 Tobacco smoking status PAIS Current every day smoker [facility] History of tobacco use [facility] Start: 11-21-2020 Tobacco use and exposure Never used [facility] Start: 11-21-2020 Alcohol intake Ex-drinker (finding) [facility] Work Phone: Start: 1980 Sex Assigned At Not on file [facility] Work Phone: Exposure to SARS-CoV-2 (event) Not sure [facility] Tobacco smoking status PAIS Tobacco smoking consumption unknown [facility] Work Phone: Gender identity Not on file [facility] Telephone encounter Note 2023 Telephone Encounter - Deidre Vaughan - 2023 4:43 PM EST Note Date & Type Note Facility 2023 Telephone encounter Note Form atting of this note might be different from the original. Called pt to see if garbage truck dispatcher appointment could be rescheduled. Left message to call office. [facility] Health Note 2023 Telephone Encounter - Dedire Vaughan - 2023 4:43 PM EST Note Date & Type Note Facility 2023 Miscellaneous Notes Formattin g of this note might be different from the original. Called pt to see if garbage truck dispatcher appointment could be rescheduled. Left message to call office. documented in this encounter [facility] Progress note 06-25-2022 Note Date & Type Note Facility 06-25-2022 Note HNO ID: [id number] Author: YANNICK Burt Service: Radiology Author Type: [...] YANNICK Burt June 25, 2022 3:30 PM [facility] Progress note 06-25-2022 Note Date & Type Note Facility 06-25-2022 Note HNO ID: [id number] Author: RT Roberto(R) Service: Radiology Author Type: [...] RT Viji(R) June 25, 2022 2:33 PM [facility] History of Present illness Narrative 06-25-2022 RT [...] 2:33 PM documented in this encounter [facility] Evaluation note Note Date & Type Note Facility documented in this encounter [facility] Work Phone: Evaluation note Note Date & Type Note Facility documented in this encounter [facility] Discharge instructions Attachments Note Date & Type Note Facility Hospital Discharge instructions The following attachments cannot be sent through Care Everywhere.Headache (Frisian)documented in this encounter [facility] Work Phone: Reason for referral (narrative) Diagnostic Procedure Only (Routine) - Pending Review Note Date & Type Note Facility Referral ID Status Reason Start Date Expiration Date Visits Requested Visits Authorized [id number] Pending Review Auto-Generat ed Referral 06/25/2022 07/25/2023 1 1 [facility] Summary Purpose Family History No Family History [...] ovider: Jean Acosta, RN - Reason: Patient/family refused)[id number] (Given - Provider: Jean Acosta, RN) Linked [...] DATE CREATED AUTHOR AUTHOR'S ORGANIZ ATION 06/30/2022 [facility] DATE CREATED AUTHOR AUTHOR'S ORGANIZ ATION 07/24/2022 [facility] DATE CREATED AUTHOR AUTHOR'S ORGANIZ ATION 09/08/2022 [facility] DATE CREATED AUTHOR AUTHOR'S ORGANIZ ATION 02/08/2023 [facility] Source Comments (unrecognize d section and content) In the event this informatio n is protected by the Federal Confidentiality of Alcohol and Drug Abuse Patient Records regulations: The Federal rules restrict any use of the information to criminally investigate or prosecute any alcohol or drug abuse patient.[facility] the event this information is protected by the Federal Confidentiality of Alcohol and Drug Abuse Patient Records regulations: The Federal rules restrict any use of the information to criminally investigate or prosecute any alcohol or drug abuse patient.[facility] Care Teams (unrecognized sec tion and content) [...] BE BASED ON THE PRIMARY CLINICAL RECORDS. [facility] [employer] [facility]. provides no warranty or guarantee of the accuracy or completeness of information in this document.
[2023-05-22 13:08] LABS: HPV APTIMA, High Risk Negative (Negative)
== END | disposition home or self-care (01) ==
LOC: LABSPEC 14:10
PROVIDERS: PCP Nurse Practitioner; Referring Provider Nurse Practitioner Women's Health; Visit Provider Nurse Practitioner Women's Health
DX: Z12.4 Encounter for screening for malignant neoplasm of cervix (principal)
CPT/HCPCS: 87624; 88175; G0145

== ENCOUNTER → 2023-07-09 | Outpatient (CLI) | payer OTHER, SELFPAY ==
--- NOTE | 2023-07-09 12:51 | US_ITS ---
ACR Level 3 findings have been noted. An addendum which confirms receipt of the report will follow. EXAM: US PELVIS TRANSABDOMINAL AND TRANSVAGINAL, COMPLETE CLINICAL INDICATION: AUB, HX OF BREAST CANCER . History of lumpectomy and right axillary janine biopsy according to prior histories. Patient reportedly receiving chemotherapy currently. TECHNIQUE: Transabdominal and transvaginal pelvic ultrasound was performed with grayscale and color Doppler imaging. Transvaginal imaging was used for better evaluation of the endometrium and adnexa. COMPARISON: None provided, CT abdomen August 05, 2022, no prior pelvic imaging provided. FINDINGS: UTERUS/CERVIX: 7.6 cm x 3.4 cm x 4.4 cm with 6 mm thick fundal endometrium. Both transabdominal and transvaginal images. RIGHT OVARY: 3.4 cm x 2.3 cm x 2.6 cm with complex 1.7 cm x 1.8 cm x 1.4 cm cystic lesion, this contains low level echoes and internal septations but is largely avascular mild increased peripheral blood flow.. Also at least 3 simple anechoic follicles, the largest roughly 1.1 cm. Documented blood flow. LEFT OVARY: 4.4 cm x 3.4 cm x 4 cm simple-appearing is cyst left ovary, overall size of the left ovary 5.2 cm x 4 cm x 5.1 cm as measured on transabdominal exam. Mild documented vascularity at the wall. The large cystic lesion appears very simple on transvaginal exam, 5.1 cm x 3.2 cm x 5.2 cm, completely anechoic with documented blood flow at the wall. FREE FLUID: None. BLADDER: Unremarkable as visualized. Wall is normal thickness for degree of distention. Calculated bladder volume 293 cc, largest diameter 9.3 cm. US/Pelvic (Non ) IMPRESSION: No endometrial stripe thickening. Simple 5.2 cm left ovarian cyst. No follow-up is necessary for this finding. Complex but small 1.8 cm maximum diameter right ovarian cystic lesion. Indeterminate. Not definitive for hemorrhagic cyst, endometrioma or dermoid. Recommendations: ACR White Paper guidelines (Schmidt, et. al. Radiology 2010;256(3):943-954) suggest initial pelvic ultrasound follow-up in 6-12 weeks. Then, if lesion is persistent and follow-up with ultrasound or MRI does not confirm endometrioma or dermoid, surgical evaluation may be considered. Electronically Signed: Court Carmichael MD at 3:51 EDT ,
--- NOTE | 2023-07-09 12:51 | BI_ITS ---
MAMMOGRAPHY - BILATERAL SCREENING REASON FOR EXAM: Female, 43 years old. Routine annual screening examination. PERTINENT HISTORY: Personal history of breast cancer. Prior right lumpectomy with radiation treatment. TECHNIQUE: Digital bilateral breast twan (3D mammographic acquisition) in the CC and MLO projections. 2-D mediolateral oblique (MLO) and craniocaudad (CC) views of both breasts were obtained. CAD: Full Field Digital Mammography with Computer Added Detection was performed. COMPARISON: Comparison is made with prior examination June 26, 2019. December 26, 1999 FINDINGS: Breast Composition: The breasts are heterogeneously dense, which may obscure small masses. There are no dominant masses or suspicious calcifications. Surgical clips are seen in the axillary region of the right breast. The patient is status post lumpectomy in the upper central portion of the breast. No other significant abnormalities are identified. BI/SCRN MAMM (CAD)W/TWAN BILAT IMPRESSION: Status post right lumpectomy and right axillary janine biopsy. Yearly follow-up mammogram recommended. (A) ASSESSMENT CATEGORY: BIRADS Category 2: Benign. A letter regarding these results will be sent to the patient by the facility within 30 days. Approximately 10% of breast cancers are not detected by mammography. A normal mammogram should not delay biopsy of a clinically suspicious abnormality. [id number] Electronically Signed: Ziggy Robertson MD at 14:14 EDT ,
== END | disposition home or self-care (01) ==
LOC: US 12:51
PROVIDERS: PCP Nurse Practitioner; Referring Provider Internal Medicine Hematology & Oncology; Visit Provider Internal Medicine Hematology & Oncology
DX: N93.9 Abnormal uterine and vaginal bleeding, unspecified (principal); C50.911 Malignant neoplasm of unspecified site of right female breast; Z12.31 Encounter for screening mammogram for malignant neoplasm of breast; Z79.810 Long term (current) use of selective estrogen receptor modulators (SERMs)
CPT/HCPCS: 76830; 76856; 77063; 77067

== ENCOUNTER → 2023-07-09 | Outpatient (CLI) | payer OTHER, SELFPAY ==
--- NOTE | 2023-07-09 14:08 | ECHODONC_ITS ---
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 Myocardial strain analysis was performed in this exam to aid in the assessment of cardiac function. Exam performed in department. Left Ventricle Normal LV size. Left ventricular systolic function is normal. The estimated ejection fraction is 60 %. No regional wall motion abnormalities noted. Right Ventricle Normal RV size. Normal systolic function. Atria Normal left atrium. Normal right atrium. Mitral Valve Normal mitral valve. Tricuspid Valve Normal tricuspid valve. Aortic Valve Normal aortic valve. Pulmonic Valve Normal pulmonic valve. Great Vessels Normal aortic root. The pulmonary artery is normal size. Normal inferior vena cava. Pericardium/Pleural No pericardial effusion. MMode/2D Measurements & Calculations LVIDd: 4.9 cm IVSd: 0.92 cm Ao root diam: 3.1 cm LVIDs: 3.3 cm LVPWd: 0.93 cm RVDd: 2.3 cm FS: 33.1 % LAV(MOD-bp): 50.9 ml LVAd ap4: 23.1 cm2 LVAd ap2: 20.8 cm2 LAV(MOD-bp) Indexed: 28.9 ml/m2 LVLd ap4: 7.8 cm LVLd ap2: 8.2 cm LAV(MOD-sp2): 50.6 ml EDV(MOD-sp4): 59.4 ml EDV(MOD-sp2): 44.6 ml LAV(MOD-sp4): 46.2 ml EDV(sp4-el): 58.2 ml EDV(sp2-el): 44.8 ml LVAs ap4: 13.9 cm2 LVAs ap2: 12.4 cm2 LVLs ap4: 6.8 cm LVLs ap2: 6.5 cm ESV(MOD-sp4): 26.7 ml ESV(MOD-sp2): 20.5 ml ESV(sp4-el): 24.2 ml ESV(sp2-el): 20.0 ml EF(MOD-sp4): 55.1 % EF(MOD-sp2): 54.1 % EF(sp4-el): 58.4 % SV(MOD-sp4): 32.7 ml SV(MOD-sp2): 24.1 ml SV(sp4-el): 34.0 ml LA dimension(2D): 3.6 cm LA A4 area: 17.9 cm2 RA A4 area: 12.4 cm2 TAPSE: 2.1 cm Time Measurements MV dec time: 0.17 sec Doppler Measurements & Calculations MV E max james: 99.2 cm/sec Lat Peak E' James: 14.5 cm/sec Med Peak E' James: 10.2 cm/sec MV A max james: 72.4 cm/sec E/E' lat: 6.8 E/E' med: 9.7 MV E/A: 1.4 MV V2 max: 113.6 cm/sec MV P1/2t max james: 113.6 cm/sec Ao V2 max: 144.4 cm/sec MV max P.2 mmHg MV P1/2t: 51.8 msec Ao max P.3 mmHg MV V2 mean: 71.7 cm/sec MV dec slope: 642.1 cm/sec2 Ao V2 mean: 100.0 cm/sec MV mean P.3 mmHg Ao mean P.5 mmHg MV V2 VTI: 23.9 cm MVA(P1/2t): 4.2 cm2 Ao V2 VTI: 31.8 cm AV (velocity ratio): 0.66 LV V1 max: 90.6 cm/sec PA V2 max: 88.1 cm/sec LV V1 max P.3 mmHg PA V2 mean: 69.3 cm/sec LV V1 mean P.9 mmHg LV V1 mean: 65.2 cm/sec LV V1 VTI: 20.9 cm ECHO/ONC Echo Complete Interpretation Summary Normal LV size. Left ventricular systolic function is normal. The estimated ejection fraction is 60 %. Structurally normal valves. The global longitudinal strain is normal. The globa l longitudinal strain = -19.8 % (normal). Ordering Physician: Arelis Wang Referring Physician: Sima Loving Performed By: Micaela Ruelas, ACOSTA, RVT
== END | disposition home or self-care (01) ==
LOC: CVS 14:02
PROVIDERS: PCP Nurse Practitioner; Referring Provider Nurse Practitioner Family; Visit Provider Nurse Practitioner Family
DX: Z51.81 Encounter for therapeutic drug level monitoring (principal); C50.911 Malignant neoplasm of unspecified site of right female breast; Z79.899 Other long term (current) drug therapy
CPT/HCPCS: 93306; 93356

== ENCOUNTER → 2023-07-20 | Outpatient (CLI) | payer OTHER, SELFPAY ==
--- NOTE | 2023-07-20 12:00 | EMB_PTH ---
PATIENT: ISABELLE NAGY LOC: [facility] U#:[id number] AGE/SX: 43/F ROOM: RE07/20/[address]: ZAC Haley : 1980 BED: DIS: 07/20/2023 SPEC #: [id number] RECD: 07/20/23 13:10 STATUS: AMY JACOBS #: [id number] CARMEN: 07/20/23 12:[address]: Deidre Hinkle NP DEPT: SURGICAL PATHOLOGY RECD BY: Mickie Mosqueda ENTERED: 07/20/23 13:44 SP TYPE: ENDOM BX/C RANDA DR: ZAC Gallardo Tissues: Endometrium, NOS Procedures: Surgery Specimen Level IV HEADER OPERATION: Endometrial biopsy PRE-OP DIAGNOSIS: Abnormal bleeding, thickened endometrium TISSUE SUBMITTED: Endometrial lining MICROSCOPIC DIAGNOSIS Endometrial lining, biopsy: Scant fragments of benign endometrial epithelium and benign endocervical epithelium and mucous. See comment. SJ/mr 4/23/24 COMMENT The specimen predominantly consists of mucoid tissue. Clinical correlation and appropriate follow up are necessary. MICROSCOPIC DESCRIPTION Slides are reviewed. GROSS DESCRIPTION Received is one container labeled with the patient's name and not further designated. The specimen consists of multiple irregular fragments of bhat mucoid tissue that in aggregate measure 0.5 x 0.5 x 0.1 cm. The specimen is totally submitted in one cassette. / 07/20/2023 TC:4 CPT:25170
[2023-07-22 05:57] LABS: Cancer Antigen 125 12.9 U/mL (0.0-38.1); Carcinoembryonic Antigen 0.9 ng/mL (0.0-4.7)
== END | disposition home or self-care (01) ==
PROVIDERS: PCP Nurse Practitioner; Referring Provider Nurse Practitioner Women's Health; Visit Provider Nurse Practitioner Women's Health
DX: N93.9 Abnormal uterine and vaginal bleeding, unspecified (principal); N83.209 Unspecified ovarian cyst, unspecified side; R93.89 Abnormal findings on diagnostic imaging of other specified body structures
CPT/HCPCS: 36415; 82378; 86304; 88305

== ENCOUNTER → 2023-07-30 | Outpatient (CLI) | payer OTHER, SELFPAY ==
--- NOTE | 2023-07-30 12:58 | MRI_ITS ---
Examination: MRI of the pelvis without and with intravenous contrast. INDICATION: Ovarian cysts COMPARISON: Ultrasound dated July 09, 2023 TECHNIQUE: Multiplanar multisequence MRI of the pelvis was obtained pre and post intravenous administration of 15 mL of CLARISCAN. FINDINGS: The urinary bladder is within normal limits. The uterus is within normal limits. Arising from the right ovary there is a 2.7 x 2.6 x 2.4 cm T1 hypointense and T2 hyperintense simple cyst. There is a 4.7 x 4.3 x 4.1 cm cyst arising from the left ovary that has decreased in size since the prior ultrasound previously measuring 5.2 x 4.0 x 5.2 cm. There is a simple cyst within the left cyst within which may reflect an cumulus oophorous. The visualized small bowel and colon are within normal limits. No free fluid is visualized. No suspicious bony lesions are identified. MRI/Pelvis W/WO Contrast IMPRESSION: Simple 2.7 x 2.6 x 2.4 cm right ovarian cyst. Interval decrease in size of 4.7 x 4.3 x 4.1 cm left ovarian cyst suggestive of a benign process. Electronically Signed: Yocasta Figueroa MD at 9:09 EDT ,
[2023-07-30] MEDS: 0.9% Saline Lock 10 ML Syringe IV (14:25)
== END | disposition home or self-care (01) ==
LOC: MRI 12:55
PROVIDERS: PCP Nurse Practitioner; Referring Provider Nurse Practitioner Women's Health; Visit Provider Nurse Practitioner Women's Health
DX: N83.209 Unspecified ovarian cyst, unspecified side (principal); C50.911 Malignant neoplasm of unspecified site of right female breast
CPT/HCPCS: 72197; A9575; A4216

== ENCOUNTER 2023-08-31 17:31 | Outpatient (RCR) | payer OTHER, SELFPAY ==
--- NOTE | 2023-09-01 07:49 | HP.OTEVAL ---
Patient's Visit Information Visit Information Visit Information: ISABELLE NAGY is a 43 year old F, referred to Occupational Therapy by Dr. Mariano Karimi DO, with a diagnosis of breast cancer. Date of Evaluation: 08/31/23 Occupational Therapist: OMEGA Amaya/Luciana, CHT Subjective Subjective: This 43 year old female was seen for OT eval with dx invasive ductal carcinoma of right breast- 2022 chemo initially then lumpectomy followed with 15 rounds of radiation states radiation ended in 2022 End of May beginning of June-2023 states she was feeling right breast was titus/swollen - states she does have some fibrosis but entire breast does feel heavy- states she was worried initially as she had redness, swelling and soreness. She had concerns her cancer returned. Pt states tenderness is better and she does not mind if her breast is larger than the other. states she does massage her breast and keeps full ROM of her right arm. pt is right hand dominate Pain right breast: Current Pain Intensity: 3 Pain Intensity Range: 0 and 4 ROM ROM Comments: ROM demo WNL denies pulling or tightness with ROM Lymphedema (Circumferential Measure) MCP: right 17cm left 17cm Wrist: right 14cm left 14cm Lower forearm: right 18cm left 17cm Largest forearm: right 23.5cm left 22cm Elbow: right 23cm left 22cm Largest humerus: right 30cm left 28cm Axcillary: right 34cm left 32cm Upper Exremity Comments: breast 104cm peak under breast 88cm above 97cm appearance of 1 and 1/2 cup size larger Goals Goal: Patient will demonstrate adequate knowledge of self-massage by the end of the second week.: Yes Goal: Patient will demonstrate adequate knowledge of skin care and precautions by the end of the first week.: Yes Goal: Patient will demonstrate adequate knowledge of therapeutic exercises by discharge.: Yes Goal: Patient will select an appropriate compression garment and demonstrate adequate knowledge of correct donning technique, care and wearing schedule by discharge.: Yes Goal: Patient will voice understanding of need to replace compression garment every four to six months by discharge.: Yes Rehabilitation General Assessment: pt demo with right breast edema appearance of 1 cup to 1 1/2 cup larger right breast. Pt states her right breast was always larger but maybe only 1/2 to 3/4 size larger. pt has been massaging her breast, applying cream/lotion as she did get slight pigment discoloration. Pt would benefit from skilled OT 2-3 session to ed. pt dx and on self manual lymph massage as well as beneficial exercise and need of compression garment. pt is returning to [employer] to get new bras. Therapist ed, pt on use of compression bar to support circulation. If pt does not want to use compression bar therapist ed, pt she could use compression tank top as alternative. If pt would want to purse compression wraps we will work on POC at this time. Today therapist ed. pt on self manual lymph massage with focus at neck right axillary and breast- therapist advised pt light skin stretch vs deep pressure, pt demo understanding. Therapist ed. pt on lymph stim ex. as well and suggestions of aquatic therapy to support circulation. pt receptive. Therapist advised pt to try prolonged stretch to scar area and follow with self manual massage- pt receptive. pt will work on her own and schedule or contact therapist with questions. Rehabilitation Potential: Good Anticipated Interventions Anticipated Interventions: Scar Care, Education re Diagnosis, Manual Lymph Drainage, Education re Life-long lymphedema Management, Education re Skin Care and Precautions, Education re Self Massage Techniques, Education re Correct Donning Tech,Care&Wearing Sched Comp Garments and Home Program Visit Plan Frequency: 1-2x /Week Duration: 4 Weeks TEXT: Thank you for the opportunity to evaluate your patient. For Medicare and Medicare HMO plans, please review the plan of care and approve it. It will need to be FAXED BACK to us at [phone] for Medicare purposes. Please let me know if there are questions or concerns regarding this plan of care. Physician Signature: Date:
== END 2023-08-31 19:00 | disposition home or self-care (01) ==
LOC: OT 17:31
PROVIDERS: PCP Nurse Practitioner; Referring Provider Student in an Organized Health Care Education/Training Program; Visit Provider Student in an Organized Health Care Education/Training Program
DX: C50.911 Malignant neoplasm of unspecified site of right female breast (principal); N63.0 Unspecified lump in unspecified breast
CPT/HCPCS: 97166; 97530

== ENCOUNTER 2023-10-08 07:35 | Outpatient (CLI) | payer OTHER, SELFPAY | END 2023-10-08 23:59 | disposition home or self-care (01) | LOC: MEDOUTP 07:35 | PROVIDERS: PCP Nurse Practitioner; Referring Provider Internal Medicine Hematology & Oncology; Visit Provider Internal Medicine Hematology & Oncology | DX: Z45.2 Encounter for adjustment and management of vascular access device (principal) | CPT/HCPCS: 96523; A4216 ==

== ENCOUNTER → 2023-11-17 | Outpatient (CLI) | payer OTHER, SELFPAY ==
[2023-11-17 12:32] LABS: Microalbumin,Random Urine < 5.0 mg/L (NO RANGE EST.)
== END | disposition home or self-care (01) ==
LOC: POLAB3 10:30
PROVIDERS: PCP Nurse Practitioner; Visit Provider Internal Medicine Nephrology
DX: E11.9 Type 2 diabetes mellitus without complications (principal)
CPT/HCPCS: 82043; 82570

== ENCOUNTER → 2024-01-12 | Outpatient (CLI) | payer OTHER, SELFPAY ==
--- NOTE | 2024-01-12 08:26 | NM_ITS ---
CLINICAL: 43-year-old female with history of primary breast carcinoma. WHOLE BODY 99m Tc MDP RADIONUCLIDE BONE SCINTIGRAPHY COMPARISON: None available FINDINGS: Following the intravenous administration of 25.9 mCi of 99m Tc MDP, whole body bone images reveal: 1. Increased tracer uptake is noted in the sternoclavicular compartments of both shoulders, the patellofemoral compartments of both knees, the fourth lumbar vertebra posteriorly on the left and right. 2. The remaining skeletal structures are scintigraphically unremarkable with normal-appearing renal images and urinary bladder activity identified. NM/Bone Scan Whole Body IMPRESSION: 1. The increase in radiopharmaceutical concentration defined in the bilateral shoulders, the knees bilaterally, the fourth lumbar vertebra is most consistent with degenerative arthritis. 2. There is no definitive typical scintigraphic evidence of skeletal metastatic disease. Electronically Signed: Trace James DO at 10:40 EDT ,
== END | disposition home or self-care (01) ==
LOC: NM 08:20
PROVIDERS: PCP Nurse Practitioner; Referring Provider Nurse Practitioner Family; Visit Provider Nurse Practitioner Family
DX: M89.8X9 Other specified disorders of bone, unspecified site (principal); Z85.3 Personal history of malignant neoplasm of breast
CPT/HCPCS: 78306; A9503

== ENCOUNTER → 2024-01-12 | Outpatient (CLI) | payer OTHER, SELFPAY ==
[2024-01-12 23:25] LABS: Absolute Lymphocyte Count 2.53 X10^3/uL (0.83-4.51); Absolute Neutrophil Count 4.2 X10^3/uL (2.0-7.7); Basophil# 0.04 X10^3/uL; Basophil% 0.5 % (0-1); Eosinophil# 0.24 X10^3/uL; Eosinophils% 3.2 % (0-5); Hematocrit 37.8 % (37-47); Hemoglobin 12.4 g/dL (12.0-15.0); Lymphocyte # 2.53 X10^3/ul (0.83-4.51); Lymphocyte % 33.5 % (19-41); Mean Corp Hgb Conc 32.8 g/dL (32-36); Mean Corpuscular Volume 88.5 fL (81-99); Monocyte# 0.49 X10^3/uL; Monocyte% 6.5 % (0-10); NRBC Flagged by Analyzer 0 % (0-5); Neutrophil # 4.24 X10^3/uL (2.7-7.7); Platelet Count 362 K/mm3 (150-450); RBC Distribution Width CV 12.8 % (11.6-14.6); RBC Distribution Width SD 41.2 fl (35.1-43.9); Red Blood Count 4.27 M/mm3 (4.2-5.4); White Blood Count 7.6 K/mm3 (4.4-11.0)
[2024-01-12 23:49] LABS: ALB/GLOB Ratio 1.2 RATIO (0.9-2.4); AST(SGOT) 21 U/L (15-37); Alanine Aminotransfer ALT/SGPT 32 U/L (13-56); Albumin, Serum 3.9 g/dL (3.2-5.0); Alkaline Phosphatase 40 U/L (45-117); Anion Gap 6 (5-15); BUN 18 mg/dL (7-18); BUN/Creat Ratio 13.6 RATIO (10-20); Calcium,Total 9.3 mg/dL (8.5-10.1); Chloride 107 mmol/L (98-107); Cholesterol 171 mg/dL (200); Creatinine, Serum 1.32 mg/dL (0.55-1.02); EST Glomerular Filtration Rate 46 mL/min (>60); Est Glom Filt Rate - Afr Amer 56 mL/min (>60); Globulin 3.2 g/dL (2.2-4.2); Glucose 181 mg/dL (74-106); Hemoglobin A1c 7.2 % (3.8-5.6); High Density Lipoprotein 54 mg/dL; Potassium 3.7 mmol/L (3.5-5.1); Protein, Total 7.1 g/dL (6.4-8.2); Sodium Level 139 mmol/L (136-145); Triglycerides 635 mg/dL
== END | disposition home or self-care (01) ==
PROVIDERS: PCP Nurse Practitioner; Referring Provider Nurse Practitioner; Visit Provider Nurse Practitioner
DX: E11.9 Type 2 diabetes mellitus without complications (principal); G43.919 Migraine, unspecified, intractable, without status migrainosus; E78.2 Mixed hyperlipidemia; F51.01 Primary insomnia; D64.81 Anemia due to antineoplastic chemotherapy; T45.1X5A Adverse effect of antineoplastic and immunosuppressive drugs, initial encounter
CPT/HCPCS: 80053; 80061; 83036; 85025

== ENCOUNTER 2024-02-09 08:23 | Day surgery (SDC) | payer OTHER, SELFPAY ==
--- NOTE | 2024-02-08 08:59 | EKG12_ITS ---
Test Reason : PRE OP Blood Pressure : */* mmHG Vent. Rate : 73 BPM Atrial Rate : 73 BPM P-R Int : 140 ms QRS Dur : 80 ms QT Int : 386 ms P-R-T Axes : 49 38 12 degrees QTcB Int : 425 ms Normal sinus rhythm Low voltage QRS Nonspecific T wave abnormality Abnormal ECG When compared with ECG of 12-Oct-2022 14:23, No significant change was found Confirmed by FRANCISCO VALLES, PRIMO ([id number]), editorial manager GEORGE REYES ([id number]) on 02/08/2024 12:40:52 PM Referred By: Reba Lopez Confirmed By: PRIMO SINGH MD
[2024-02-08 10:33] LABS: Hemoglobin A1c 7.4 % (3.8-5.6)
[2024-02-09] VITALS (14 sets, daily range): BP systolic 91–130; BP diastolic 59–78; PULSE 74–85; RESP 16–18; TEMP 36.2–36.7; O2SAT 96–100; BMI 29.1
[2024-02-09 09:08] LABS: Internal QC Validated? YES +Cl - CLEAR BKGD; Pregnancy, Urine Negative Negative
[2024-02-09] MEDS: Lactated Ringers 1,000 ML 40 ML IV (09:11)
--- NOTE | 2024-02-09 09:11 | PCM.HP.BLA ---
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 Required: No Is patient in pain?: No Allergies codeine Allergy (Severe, Verified 12/31/23 14:58) rashhydrocodone (From Vicodin) Allergy (Severe, Verified 12/31/23 14:58) rashPenicillins Allergy (Severe, Verified 12/31/23 14:58) rashpropoxyphene (From Darvocet-N) Allergy (Severe, Verified 12/31/23 14:58) rashcaffeine Adverse Reaction (Severe, Verified 12/31/23 14:58) migraine Medications ?Medication ?Instructions ?Recorded ?Confirmed ?Type multivitamin 1 tab PO DAILY 12/01/17 12/31/23 History sumatriptan succinate 100 mg tablet 100 mg PO PRN PRN MIGRAINES 07/28/22 12/31/23 History lidocaine-prilocaine 2.5 %-2.5 % 1 applic topical ONCE PRN PORT 07/29/22 12/31/23 Rx topical cream ACCESS 30 days #30 grams loratadine 10 mg tablet (Claritin) 10 mg PO DAILY 12/16/22 12/31/23 History atorvastatin 20 mg tablet (Lipitor) 20 mg PO QHS #90 tabs 01/20/23 12/31/23 Rx fenofibrate nanocrystallized 145 145 mg PO DAILY #90 tabs 01/20/23 12/31/23 Rx mg tablet insulin lispro 100 unit/mL 1 sliding scale dose subcut TID 01/20/23 12/31/23 Rx subcutaneous pen (Humalog KwikPen SLIDING SCALE 1-100 units a day 90 (U-100) Insulin) days #15 mL sitagliptin phosphate 50 mg tablet 50 mg PO DAILY #90 tabs 01/20/23 12/31/23 Rx (Januvia) topiramate 100 mg tablet (Topamax) 100 mg PO QHS #90 tabs 01/20/23 12/31/23 Rx tamoxifen 20 mg tablet 20 mg PO DAILY #90 tabs 03/05/23 12/31/23 Rx blood sugar diagnostic (OneTouch #100 ea 06/12/23 12/31/23 Rx Ultra Test strips) pen needle, diabetic 29 gauge x #270 ea 06/12/23 12/31/23 Rx 1/2 (BD Ultra-Fine Original Pen Needle) glyburide 5 mg tablet 10 mg (2 x 5 mg) PO BID 90 days 09/07/23 12/31/23 Rx #360 tabs valacyclovir 1 gram tablet 1,000 mg PO TID PRN cod sore 7 09/07/23 12/31/23 Rx days #21 tabs dapagliflozin propanediol 10 mg 10 mg PO QAM 12/03/23 12/31/23 History tablet (Farxiga) semaglutide 0.25 mg or 0.5 mg (2 0.5 mg (0.374 mL) subcut QWEEK 30 12/07/23 12/31/23 Rx mg/1.5 mL) subcutaneous pen days #1.87 mL injector zolpidem 10 mg tablet 10 mg PO QHS PRN insomnia #30 tabs 12/07/23 12/31/23 Rx benzonatate 200 mg capsule 200 mg PO TID PRN cough #60 caps 12/30/23 12/31/23 Rx cefdinir 300 mg capsule 300 mg PO BID #20 caps 12/30/23 12/31/23 Rx Post menopausal: No Patient : No : No PFSH Medical History Bone pain Screening for osteoporosis Visit for pelvic exam Well adult exam History of Clostridium difficile infection History of echocardiogram C. difficile diarrhea Hypokalemia Left ankle pain Anemia Encounter for chemotherapy management Encounter for monitoring cardiotoxic drug therapy Wears glasses Cancer Anxiety History of steroid therapy Insulin dependent diabetes mellitus Back pain Dietary restriction Former smoker Shortness of breath on exertion Hx of tear of ACL (anterior cruciate ligament) Liver hemangioma Encounter for insertion of venous access port Abnormal MRI Encounter for education CINV (chemotherapy-induced nausea and vomiting) Invasive ductal carcinoma of right breast Migraines Mononucleosis Adopted Carpal tunnel syndrome Cleft lip Herpes simplex Hypercholesterolemia Surgical History Status post right breast lumpectomy Hx of surgical procedure Hx of nasal septoplasty Hx of tonsillectomy Cleft palate and cleft lip Social History Smoking Status: Former smoker how long ago did patient quit smoking: cut back on smoking, now vaping as well second hand exposure: No alcohol intake: never substance use type: does not use additional social history: Boyfriend-Bhupendra [employer] [facility] Details: ISABELLE NAGY is a 43 year old who presents for a pre- op exam for a total robotic hysterectomy, bilateral salpingo-oophorectomy, and cystoscopy. This is being performed for risks reducing benefits. She is a survivor of triple positive breast cancer and has been bleeding on tamoxifen. Ultrasound showed a 6 mm lining and bilateral simple cysts. Her Cea and Ca-125 levels were normal, MRI showed benign process of the ovaries, and endometrial biopsy was benign. Ultrasound showed the following: XAM: US PELVIS TRANSABDOMINAL AND TRANSVAGINAL, COMPLETE CLINICAL INDICATION: AUB, HX OF BREAST CANCER . History of lumpectomy and right axillary janine biopsy according to prior histories. Patient reportedly receiving chemotherapy currently. TECHNIQUE: Transabdominal and transvaginal pelvic ultrasound was performed with grayscale and color Doppler imaging. Transvaginal imaging was used for better evaluation of the endometrium and adnexa. COMPARISON: None provided, CT abdomen August 05, 2022, no prior pelvic imaging provided. FINDINGS: UTERUS/CERVIX: 7.6 cm x 3.4 cm x 4.4 cm with 6 mm thick fundal endometrium. Both transabdominal and transvaginal images. RIGHT OVARY: 3.4 cm x 2.3 cm x 2.6 cm with complex 1.7 cm x 1.8 cm x 1.4 cm cystic lesion, this contains low level echoes and internal septations but is largely avascular mild increased peripheral blood flow.. Also at least 3 simple anechoic follicles, the largest roughly 1.1 cm. Documented blood flow. LEFT OVARY: 4.4 cm x 3.4 cm x 4 cm simple-appearing is cyst left ovary, overall size of the left ovary 5.2 cm x 4 cm x 5.1 cm as measured on transabdominal exam. Mild documented vascularity at the wall. The large cystic lesion appears very simple on transvaginal exam, 5.1 cm x 3.2 cm x 5.2 cm, completely anechoic with documented blood flow at the wall. FREE FLUID: None. BLADDER: Unremarkable as visualized. Wall is normal thickness for degree of distention. Calculated bladder volume 293 cc, largest diameter 9.3 cm. Signed ADDENDUM by Dr. Court Carmichael MD on 07/10/23 at 0351 US/Pelvic (Non ) IMPRESSION: No endometrial stripe thickening. Simple 5.2 cm left ovarian cyst. No follow-up is necessary for this finding. Complex but small 1.8 cm maximum diameter right ovarian cystic lesion. Indeterminate. Not definitive for hemorrhagic cyst, endometrioma or dermoid. Recommendations: ACR White Paper guidelines (Schmidt, et. al. Radiology 2010;256(3):943-954) suggest initial pelvic ultrasound follow-up in 6-12 weeks. Then, if lesion is persistent and follow-up with ultrasound or MRI does not confirm endometrioma or dermoid, surgical evaluation may be considered. N.B. : Kathie Leigh OT, confirmed on 07/10/2023 13:33:21 (ET) that the healthcare facility has received the radiology report. Electronically Signed: Court Carmichael MD at 3:51 EDT Reading Location ID and State: [facility] / [place] Tel , Service support , Signed ACR Level 3 findings have been noted. An addendum which confirms receipt of the report will follow. EXAM: US PELVIS TRANSABDOMINAL AND TRANSVAGINAL, COMPLETE CLINICAL INDICATION: AUB, HX OF BREAST CANCER . History of lumpectomy and right axillary janine biopsy according to prior histories. Patient reportedly receiving chemotherapy currently. TECHNIQUE: Transabdominal and transvaginal pelvic ultrasound was performed with grayscale and color Doppler imaging. Transvaginal imaging was used for better evaluation of the endometrium and adnexa. COMPARISON: None provided, CT abdomen August 05, 2022, no prior pelvic imaging provided. FINDINGS: UTERUS/CERVIX: 7.6 cm x 3.4 cm x 4.4 cm with 6 mm thick fundal endometrium. Both transabdominal and transvaginal images. RIGHT OVARY: 3.4 cm x 2.3 cm x 2.6 cm with complex 1.7 cm x 1.8 cm x 1.4 cm cystic lesion, this contains low level echoes and internal septations but is largely avascular mild increased peripheral blood flow.. Also at least 3 simple anechoic follicles, the largest roughly 1.1 cm. Documented blood flow. LEFT OVARY: 4.4 cm x 3.4 cm x 4 cm simple-appearing is cyst left ovary, overall size of the left ovary 5.2 cm x 4 cm x 5.1 cm as measured on transabdominal exam. Mild documented vascularity at the wall. The large cystic lesion appears very simple on transvaginal exam, 5.1 cm x 3.2 cm x 5.2 cm, completely anechoic with documented blood flow at the wall. FREE FLUID: None. BLADDER: Unremarkable as visualized. Wall is normal thickness for degree of distention. Calculated bladder volume 293 cc, largest diameter 9.3 cm. US/Pelvic (Non ) IMPRESSION: No endometrial stripe thickening. Simple 5.2 cm left ovarian cyst. No follow-up is necessary for this finding. Complex but small 1.8 cm maximum diameter right ovarian cystic lesion. Indeterminate. Not definitive for hemorrhagic cyst, endometrioma or dermoid. Recommendations: ACR White Paper guidelines (Brayan, et. al. Radiology 2010;256(3):943-954) suggest initial pelvic ultrasound follow-up in 6-12 weeks. Then, if lesion is persistent and follow-up with ultrasound or MRI does not confirm endometrioma or dermoid, surgical evaluation may be considered. History 0 Elective abortions Hx Para Spontaneous abortions Hx # Term Pregnancies Ectopic pregnancies Hx # Pregnancies Multiple births # of living children ROS Const ROS Unobtainable: All systems reviewed & are unremarkable except as noted in H Resp Resp: Reports system reviewed and no additional complaints, except as documented; Denies cough GI GI: Reports as per HPI Psych Psych: Reports system reviewed and no additional complaints, except as documented Exam Const General: cooperative, healthy appearing, comfortable and no acute distress Resp Effort & Inspection: normal respiratory effort Skin General: no rashes or lesions noted Psych Appearance: grossly normal Speech and Movement: speech and movement normal Coding Level of Care Code Off vis,est,level 4 Diagnoses Cysts of both ovaries N83.201; N83.202 Laterality: bilateral HPV test positive Use of tamoxifen (Nolvadex) Z79.810 Abnormal uterine bleeding (AUB) N93.9 Controlled diabetes mellitus type 1 without complications E10.9 Diabetes mellitus complication status: without complication 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 E11.9 Invasive ductal carcinoma of right breast C50.911 Assessment and Plan Assessment and Plan (1) Ovarian cyst: Status: Acute Qualifiers: Laterality: bilateral Qualified Code(s): N83.201 - Unspecified ovarian cyst, right side; N83.202 - Unspecified ovarian cyst, left side Comment: Consult JV:CEA and CA 125, MRI. If ok and EMB nl, proceed w/oopherectomy (2) HPV test positive: Status: Acute Comment: 04/2022 neg pap, +hpv. 04/2023:neg pap and HPV (3) Use of tamoxifen (Nolvadex): Status: Acute (4) Abnormal uterine bleeding (AUB): Status: Acute Comment: IUD out w/breast CA dx 06/2022. Had 1 menses then, did chemo. Had menses Apr 2023 once chemo done. On tamoxifen. US ordered. (5) Diabetes type 1, controlled: Status: Acute Qualifiers: Diabetes mellitus complication status: without complication Qualified Code(s): E10.9 - Type 1 diabetes mellitus without complications (6) 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: Status: Acute (7) Invasive ductal carcinoma of right breast: Status: Chronic Plan: After discussing the patient's diagnosis and treatment plan options, patient wishes to proceed with surgical management. I have discussed with the patient the risks, benefits, and alternatives of the procedure which include but are not limited to risks of anesthesia, bleeding, infection, possible damage to bowel, bladder, or surrounding vasculature which could lead to additional surgery to evaluate any complications. Patient agrees to procedure and wishes to proceed. ACOG/uptodate references given for additional information regarding procedure. plan for total robotic hysterectomy, bilateral salpingo-oophorectomy, and cystoscopy on 02/09/24
[2024-02-09] MEDS: dexAMETHasone 4 MG/ML Vial 8 MG IV (09:12)
[2024-02-09 09:13] LABS: Bedside Glucose 83 mg/dL (74-106)
[2024-02-09] MEDS: Magnesium 1 GM over 15 mins IV (09:20)
--- NOTE | 2024-02-09 09:38 | PCM.DC ---
Discharge Instructions Diet Discharge Diet: No restrictions Activity Discharge Activity: May Not Drive (while taking pain medications and within the first 48 hours after surgery) and May Shower May resume sexual activity in: 6 weeks Weight Bearing Status: Full weight bearing Lifting Restrictions: 10 pounds Dressing / Incision Call your doctor if your incision/area has: Continuous Slow Oozing, Sudden Increased Bleeding, Increased Pain/ Swelling, Increased Redness and Foul Smelling Discharge Call your doctor if you observe: Fever of 101 or Higher, Using more than 1 pad per hour, Shortness of breath, Chest pain and Uncontrolled pain Suture Line Care: Avoid Pulling/Pushing and Avoid Pinching/Bending Remove Dressing in: 1 week (if present) Cleanse incision/area with: Soap & Water and Keep Dressing Clean & Dry Follow Up Care Please Follow Up With: Reba Lopez DO When: Call to make an appointment with your doctor for a postop visit in 2 and 6 weeks Test Results: Test results from this visit will be discussed in further detail at your follow-up appointment, if applicable. Discharge Plan Admission Primary Reason for Your Visit: hysterectomy Attending Provider: Reba Lopez Primary Care Provider: Sima Loving NP Instructions Print Language: Lao Discharge Orders/Prescriptions Prescriptions: New hydromorphone [Dilaudid] 2 mg tablet 2 mg PO Q6H PRN (Reason: pain) 7 Days Qty: 20 0RF Continued tamoxifen 20 mg tablet 20 mg PO DAILY Qty: 90 4RF dapagliflozin propanediol [Farxiga] 10 mg tablet 10 mg PO QAM multivitamin tablet 1 tab PO DAILY (DME) pen needle, diabetic [BD Ultra-Fine Orig Pen Needle] 29 gauge x 1/2 needle See Dose Instructions .ROUTE .MEDSUPPLY Qty: 270 3RF Dose Instruction: As directed Rx Instructions: As directed for insulin injections (DME) OneTouch Ultra Test Strip See Rx Instructions .ROUTE .MEDSUPPLY Qty: 100 3RF Rx Instructions: As directed glyburide 5 mg tablet 10 mg PO BID 90 Days Qty: 360 1RF valacyclovir 1 gram tablet 1,000 mg PO TID PRN (Reason: cod sore) 7 Days Qty: 21 12RF zolpidem 10 mg tablet 10 mg PO QHS PRN (Reason: insomnia) Qty: 30 5RF Ozempic 1 mg/dose (4 mg/3 mL) pen injector 1 mg subcut SA atorvastatin [Lipitor] 20 mg tablet 20 mg PO QHS Qty: 90 3RF fenofibrate nanocrystallized 145 mg tablet 145 mg PO DAILY Qty: 90 3RF insulin lispro [Humalog KwikPen Insulin] 100 unit/mL insulin pen 1 sliding scale dose subcut TID 90 Days Qty: 15 3RF Januvia 50 mg tablet 50 mg PO DAILY Qty: 90 3RF topiramate [Topamax] 100 mg tablet 100 mg PO QHS Qty: 90 3RF sumatriptan succinate 100 mg tablet 100 mg PO PRN PRN (Reason: MIGRAINES) loratadine [Claritin] 10 mg tablet 10 mg PO DAILY calcium carbonate-vitamin D3 600 mg-5 mcg (200 unit) tablet 1 tab PO DAILY benzonatate 200 mg capsule 200 mg PO TID PRN (Reason: cough) Qty: 60 6RF Referrals / Follow Up: Sima Loving NP, EMERGENCY COMMUNICATIONS DISPATCHER-C [Primary Care Provider] - Disposition Disposition (needs filled in before D/C Order can be placed): Home, Self Care
[2024-02-09] MEDS: Phenazopyridine 95 MG Tablet 190 MG PO (09:39)
[2024-02-09] MEDS: Acetaminophen 500 MG Tablet 1000 MG PO (09:40)
[2024-02-09] MEDS: Gabapentin 600 MG Tablet PO (09:41)
[2024-02-09] MEDS: Celecoxib 200 MG Capsule 400 MG PO (09:42)
[2024-02-09] MEDS: WATER IV (09:44)
[2024-02-09] MEDS: DEXTROSE 5% IV (09:44)
[2024-02-09] MEDS: GENTAMICIN IV (09:44)
--- NOTE | 2024-02-09 09:56 | PRE.ANES_ITS ---
ASA Classification* ASA Classification ASA Classification: 3 Assessment & Plan Anesthesia* Anesthesia Assessment Anesthesia Assessment: Discussed sedation and/or anesthesia options, risks, benefits, and alternatives with patient/parents/legal guardian/POA. Questions invited. The patient/parents/legal guardian/POA seems to understand and agrees to proceed with anesthesia plan. Reviewed the physical assessment, medical history, allergy history and patient home medications list prior to surgery/procedure/anesthetic and documented any changes. Performed airway and anesthesia risk assessments. Anesthesia Type Anesthesia Type: General History Source History Obtained from:: Patient and Chart Anesthesia Focused Assessment* Temperature: 97.8 F Pulse Rate: 84 Blood Pressure: 113/78 Respiratory Rate: 18 Pulse Ox: 99 Oxygen Delivery Method: Room Air Airway Assessment Mouth opens: >3 cm Mallampati Score: III Neck Range of motion (ROM): Full ROM Comment: Patient has implant tooth #10. Focused Labs Anesthesia Preop lab: CBC WBC 7.6 K/mm3 (4.4-11.0) 01/12/24 23:59 RBC 4.27 M/mm3 (4.2-5.4) 01/12/24 23:59 Hgb 12.4 g/dL (12.0-15.0) 01/12/24 23:59 Hct 37.8 % (37-47) 01/12/24 23:59 Plt Count 362 K/mm3 (150-450) 01/12/24 23:59 CHEMISTRY Potassium 3.7 mmol/L (3.5-5.1) 01/12/24 23:59 Sodium 139 mmol/L (136-145) 01/12/24 23:59 Magnesium 2.0 mg/dL (1.6-2.6) 02/08/24 09:24 Phosphorus 2.9 mg/dL (2.5-4.9) 01/13/23 10:35 BUN 18 mg/dL (7-18) 01/12/24 23:59 Creatinine 1.32 mg/dL (0.55-1.02) H 01/12/24 23:59 Glucose 181 mg/dL (74-106) H 01/12/24 23:59 POC Glucose 83 mg/dL (74-106) 02/09/24 08:54 TSH 0.86 uIU/mL (0.358-3.74) 07/09/23 09:00 COAG HCG, Quant < 1 mIU/mL (1-3) 05/16/19 16:40 Urine Test Negative Negative 02/09/24 08:35 Tst Clinic Negative 07/20/23 11:49 Pre-Assessment Diagnosis/Proposed Procedure Planned Operative Procedure(s): TOTAL ROBOTIC HYSTERECTOMY BILAT SALPINGO- OOPHERECTOMY CYSTO Anesthesia History 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 When Was Last Pacemaker Check QUESTION #4 FULL TEXT: You/Your Family Experience fever (hyperthermia) with Anesthesia Last Oral Intake Last Oral intake: Last Oral Intake NPO since 17:30 02/09/24 09:31 Meds taken in AM with sips of No 02/09/24 09:31 water? Meds patient instructed to take am of surgery PONV PONV - asphalt paving supervisor: PONV - asphalt paving supervisor Female Yes 01/26/24 11:30 HX of Motion Sickness Yes 01/26/24 11:30 HX of N/V After Surgery Yes 01/26/24 11:30 Non-Smoker Yes 01/26/24 11:30 Duration of Surgery greater Yes 01/26/24 11:30 than 60 minutes Number of Risk Factors 5 01/26/24 11:30 PONV Score Severe Risk 01/26/24 11:30 Height & Weight Height & Weight: Anesthesia: Height & Weight Height 5 ft 3 in 02/09/24 09:31 Weight: 74.6 kg 02/09/24 09:31 Body Mass Index (BMI) 29.1 02/09/24 09:31 Respiratory Assessment Respiratory Assessment - asphalt paving supervisor: Respiratory Tract Infection Hx - asphalt paving supervisor Hx Respiratory Tract Infection No 01/26/24 11:30 STOP Sleep Apnea STOP Sleep Apnea - asphalt paving supervisor: STOP Sleep Apnea - asphalt paving supervisor Hx Hypertension No 01/26/24 11:30 Hx Sleep Apnea No 01/26/24 11:30 CPAP BIPAP Do you snore loudly (louder Yes 01/26/24 11:30 than talking or can be heard Do you often feel tired/ No 01/26/24 11:30 fatigued/ sleepy during daytime? Has anyone observed you stop No 01/26/24 11:30 breathing during sleep? STOP Results Negative 01/26/24 11:30 QUESTION #5 FULL TEXT : Do you snore loudly (louder than talking or can be heard through closed doors)? 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 Tobacco Use Smoking Status Former smoker 01/26/24 11:30 Hx Tobacco Use No 01/26/24 11:30 Years Smoking Packs Smoked per Day Smoking Cessation Date was Yes - quit smoking within 15 01/26/24 11:30 within the last 15 years years Hx Smoking Cessation Date 03/30/18 01/26/24 11:30 Hx Smoking Cessation No 01/26/24 11:30 Counseling Hematologic Medial History Hematologic Hx - asphalt paving supervisor: Hematologic Medical Hx - emergency dispatcher Hx of Blood Transfusion No 01/26/24 11:30 Hx of Transfusion in last 3 No 01/26/24 11:30 Months Date of Last Transfusion (if within last 3 months) Ever experience any problems No 01/26/24 11:30 with transfusion(s)? Specify any problems Hx of Preganancy in last 3 No 01/26/24 11:30 Months Nurse Filling Out Transfusion DSCHRIBER 01/26/24 11:30 & Questions: Date: 01/26/24 01/26/24 11:30 Time: 11:32 01/26/24 11:30 Patient unable to answer at this time (ie. confused, unrespo /Reproduction History /Reproductive History - asphalt paving supervisor: /Reproductive Hx- asphalt paving supervisor Hx Now No 01/26/24 11:30 Gestational Age (in weeks): EDC: Hx Hx Para Hx Section SAB No 01/26/24 11:30 Active Medications Active Medications: Current Medications Generic Name Dose Route Start Last Admin Trade Name Freq PRN Reason Stop Dose Admin Lactated Ringer's 1,000 mls @ 40 mls/hr 02/09/24 07:30 02/09/24 09:11 IV 40 mls/hr .Q25H MANJIT Administration Lactated Ringer's 1,000 mls @ 70 mls/hr 02/09/24 07:30 IV .[id number] MANJIT Insulin Human Lispro 0 unit 02/09/24 07:30 Insulin Lispro 100 Unit/Ml Insuln.Pen SC Q4H PRN PRN BG >/= 180, SEE PROTOCOL Protocol PFSH Medical History (Updated 01/26/24 @ 11:38 by Gail Hopper) History of renal disease Bone pain Screening for osteoporosis Visit for pelvic exam Well adult exam History of Clostridium difficile infection History of echocardiogram C. difficile diarrhea Hypokalemia Left ankle pain Anemia Encounter for chemotherapy management Encounter for monitoring cardiotoxic drug therapy Wears glasses Cancer Anxiety Insulin dependent diabetes mellitus Back pain Dietary restriction Former smoker Shortness of breath on exertion Hx of tear of ACL (anterior cruciate ligament) Liver hemangioma Encounter for insertion of venous access port Abnormal MRI Encounter for education CINV (chemotherapy-induced nausea and vomiting) Invasive ductal carcinoma of right breast Migraines Adopted Cleft lip Herpes simplex Hypercholesterolemia Home Medications ?Medication ?Instructions ?Recorded ?Last Taken ?Type multivitamin 1 tab PO DAILY 12/01/17 02/08/24 History sumatriptan succinate 100 mg tablet 100 mg PO PRN PRN MIGRAINES 07/28/22 Unknown History loratadine 10 mg tablet (Claritin) 10 mg PO DAILY 12/16/22 Unknown History tamoxifen 20 mg tablet 20 mg PO DAILY #90 tabs 03/05/23 02/08/24 Rx blood sugar diagnostic (OneTouch #100 ea 06/12/23 Unknown Rx Ultra Test strips) pen needle, diabetic 29 gauge x #270 ea 06/12/23 Unknown Rx 1/2 (BD Ultra-Fine Original Pen Needle) glyburide 5 mg tablet 10 mg (2 x 5 mg) PO BID 90 days 09/07/23 02/08/24 Rx #360 tabs valacyclovir 1 gram tablet 1,000 mg PO TID PRN cod sore 7 09/07/23 Unknown Rx days #21 tabs dapagliflozin propanediol 10 mg 10 mg PO QAM 12/03/23 Unknown History tablet (Farxiga) zolpidem 10 mg tablet 10 mg PO QHS PRN insomnia #30 tabs 12/07/23 02/08/24 Rx benzonatate 200 mg capsule 200 mg PO TID PRN cough #60 caps 12/30/23 Unknown Rx atorvastatin 20 mg tablet (Lipitor) 20 mg PO QHS #90 tabs 01/12/24 02/08/24 Rx fenofibrate nanocrystallized 145 145 mg PO DAILY #90 tabs 01/12/24 02/08/24 Rx mg tablet insulin lispro 100 unit/mL 1 sliding scale dose subcut TID 01/12/24 02/08/24 Rx subcutaneous pen (Humalog KwikPen SLIDING SCALE 1-100 units a day 90 (U-100) Insulin) days #15 mL semaglutide 1 mg/dose (4 mg/3 mL) 1 mg subcut SA 01/12/24 01/30/24 History subcutaneous pen injector (Ozempic) sitagliptin phosphate 50 mg tablet 50 mg PO DAILY #90 tabs 01/12/24 02/08/24 Rx (Januvia) topiramate 100 mg tablet (Topamax) 100 mg PO QHS #90 tabs 01/12/24 02/08/24 Rx calcium 600 mg (as 1 tab PO DAILY 01/26/24 02/08/24 History carbonate)-vitamin D3 5 mcg (200 unit) tablet hydromorphone 2 mg tablet 2 mg PO Q6H PRN pain 7 days #20 02/09/24 Unknown Rx (Dilaudid) tabs Allergy/AdvReac Type Severity Reaction Status Date / Time codeine Allergy Severe rash Verified 02/09/24 09:09 hydrocodone (From Vicodin) Allergy Severe rash Verified 02/09/24 09:09 Penicillins Allergy Severe rash Verified 02/09/24 09:09 propoxyphene (From Allergy Severe rash Verified 02/09/24 09:09 Darvocet-N) caffeine AdvReac Severe migraine Verified 02/09/24 09:09 Surgical History (Updated 02/09/24 @ 09:[address] Reba Lopez, DO) History of lumpectomy of right breast Status post right breast lumpectomy Hx of surgical procedure Hx of nasal septoplasty Hx of tonsillectomy Cleft palate and cleft lip Social History (Reviewed 01/13/24 @ 07:42 by Sima Loving FACING CUTTING MACHINE OPERATOR, FACING CUTTING MACHINE OPERATOR-C) Smoking Status: Former smoker how long ago did patient quit smoking: cut back on smoking, now vaping as well second hand exposure: No alcohol intake: never substance use type: does not use additional social history: Boyfriend-Bhupendra Review of Systems (Anesthesia) ROS Narrative System reviewed and no additional complaints, except as documented.
--- NOTE | 2024-02-09 10:15 | HYST_PTH ---
PATIENT: ISABELLE NAGY LOC: [facility] – [place] U#:[id number] AGE/SX: 44/F ROOM: RE02/09/[address]: Dr. Reba Lopez DO : 1980 BED: DIS: 02/09/2024 SPEC #: [id number] RECD: 02/09/24 13:40 STATUS: AMY JACOBS #: [id number] CARMEN: 02/09/24 10:[address]: Reba Lopez DEPT: SURGICAL PATHOLOGY RECD BY: Blake Jerry ENTERED: 02/10/24 07:39 SP TYPE: HYSTERECT OTHR DR: Sima Loving, TOOL SALVAGE WORKER-C Tissues: Uterus, NOS Procedures: Surgery Specimen Level V HEADER OPERATION: Laparoscopic robotic hysterectomy, cystoscopy PRE-OP DIAGNOSIS: Abnormal uterine bleeding, history of breast cancer, ovarian cyst, HPV positive TISSUE SUBMITTED: Uterus, cervix, bilateral tubes and ovaries MICROSCOPIC DIAGNOSIS Uterus, hysterectomy: Cervix - Nabothian cysts and minimal chronic inflammation. Endometrium - Simple hyperplasia without atypia. Myometrium - Leiomyomas. Right fallopian tube- No pathologic change. Right ovary- Serous cyst adenoma. Left fallopian tube- Benign paratubal cyst. Left ovary- Follicular cyst. AM 02/11/2024 COMMENT Case has been reviewed in consultation with Dr. Schwartz who concurs with the above diagnosis. IDC:DENIZ MICROSCOPIC DESCRIPTION Slides are reviewed. GROSS DESCRIPTION Received in fixative is one container labeled with the patient's name and designated uterus, cervix, bilateral fallopian tubes and ovaries . The specimen consists of a hysterectomy specimen consisting of uterus with cervix, attached bilateral fallopian tube and ovaries. The uterus with cervix weighs 59 gm and measures 7.5 x 6.0 x 3.5 cm. The serosal surface is bhat glistening. The ectocervical mucosa is unremarkable. The external os is circular in contour. The endocervical canal measures 2.5 cm in length and the endocervical mucosa is bhat glistening and unremarkable. The triangular endometrial cavity measures 4.0 cm in length and 2.5 cm in width. The endometrium is bhat, glistening without any mass lesions and measures 0.2 cm in thickness. Sections of the uterine wall reveal two bhat nodular masses measuring 0.3 and 0.5cm in greatest dimension. Uterine wall measures up to 1.8cm in thickness. Right fallopian tube measures 6.0cm in length and 0.5cm in diameter. Fimbrial end is identified. No tubovarian adhesions revealed. Sections reveal unremarkable cut surfaces. Soft to cystic right ovary measures 3.0 x 2.5 x 2.0cm. Sections reveal a cyst filled with clear fluid measuring 2.0cm in greatest dimension. Left fallopian tube has a similar appearance as to the right and measures 5.0cm in length and 0.5cm in diameter. A paratubal cyst is noted measuring 0.5cm in greatest dimension. Soft to cystic left ovary measures 5.0 x 5.0 x 3.5cm and weighs 33gm. Outer surface is smooth and inked black. Sections reveal a unilocular cyst filled with yellowish-clear fluid measuring 5.0cm in greatest dimension. Cyst wall is thin without any papillation and measures 0.1cm in greatest dimension. Male Impersonator sections are submitted in nineteen cassettes as follows: 1-8- cervix like leep colonization (1&2- 12-3o'clock, 3&4- 3-6o'clock, 5&6- 6-9o'clock, 7&8- 9-12o'clock, 9&10- anterior uterine wall (9- also contains a small nodular mass), 11&12- posterior uterine wall (11 contains the larger nodular mass), 13-15- right fallopian tube and ovary (13- fallopian tube, 14&15- right ovary) 16-19- left fallopian tube and ovary (16- left fallopian tube, 17-19- left ovary). DENIZ 02/10/2024 TC:5 CPT: 36129
[2024-02-09] MEDS: Clindamycin 900 MG/50 ML BAG 75 MG IV (10:17)
[2024-02-09] MEDS: DiphenhydrAMINE 50 MG/ML Syringe (10:44)
[2024-02-09] MEDS: Bupivacaine 0.25% 30 ML Vial (10:54)
[2024-02-09 11:25] LABS: ALB/GLOB Ratio 1.2 RATIO (0.9-2.4); AST(SGOT) 23 U/L (15-37); Alanine Aminotransfer ALT/SGPT 26 U/L (13-56); Albumin, Serum 3.8 g/dL (3.2-5.0); Alkaline Phosphatase 30 U/L (45-117); Anion Gap 8 (5-15); BUN 16 mg/dL (7-18); BUN/Creat Ratio 15.5 RATIO (10-20); Calcium,Total 9.7 mg/dL (8.5-10.1); Chloride 111 mmol/L (98-107); Creatinine, Serum 1.03 mg/dL (0.55-1.02); EST Glomerular Filtration Rate 61 mL/min (>60); Est Glom Filt Rate - Afr Amer 74 mL/min (>60); Estimated Creatinine Clearance 66.02 ml/min; Globulin 3.1 g/dL (2.2-4.2); Glucose 117 mg/dL (74-106); Potassium 4.1 mmol/L (3.5-5.1); Protein, Total 6.9 g/dL (6.4-8.2); Sodium Level 142 mmol/L (136-145)
--- NOTE | 2024-02-09 11:48 | PCM.OPRPT ---
Problems Associated Problem List Diagnoses (1) Ovarian cyst: (2) HPV test positive: (3) Abnormal uterine bleeding (AUB): (4) Invasive ductal carcinoma of right breast: Operative Report (Standard) Operative Information Surgery/Procedure Performed: total robotic hysterectomy, bilateral salpingo-oophorectomy, cystoscopy Surgeon: Reba Lopez Date of Procedure: 02/09/24 Procedure Start Time: 10:43 Procedure Stop Time: 11:53 Pre-Operative Diagnosis: breast cancer, ovarian cyst, abnormal uterine bleeding Post-Operative Diagnosis: same as preop Select all DRAINS/GRAFTS/IMPLANTS that apply: None Type of Anesthesia: General Estimated Blood Loss: 40cc Specimen collected: Yes Description of specimen(s) removed: uterus, cervix, tubes, ovaries Description of surgery: Reason for surgery: This is a 44-year-old G0, P0 who presented to my office with history of breast cancer, seeking hysterectomy with BSO to better treat her breast cancer. she also has experienced abnormal uterine bleeding and found to have a left ovarian cyst. The planned procedure is for a robotic hysterectomy the risks benefits and alternatives were discussed with the patient the patient had a clear understanding of the procedure and a consent form was signed. Procedure: The patient was placed in the dorsal low lithotomy position and prepped and draped in the normal sterile fashion both abdominally and in the perineum. Her legs were placed in stirrups a Toribio catheter was inserted into the urethra without difficulty. A weighted speculum was placed in the vagina and a single-tooth tenaculum was used to grasp the anterior lip of the cervix. An advincula uterine manipulator was inserted through the cervix without complication. It was then tied into place at the 2 and 10:00 locations on the cervix. Gloves were changed and attention was turned towards the abdomen. Approximately 23 cm above the pubic symphysis in the midline, and after Marcaine injection, a 8 mm incision was made. An 8 mm trocar was inserted through the laparoscope, then inserted into the abdomen under direct visualization using the laparoscope. Good abdominal placement was noted and no complications were appreciated. An air seal device was utilized to create pneumoperitoneum. At 12 cm lateral to the midline on the left and right sides 8 mm accessory ports were placed. Next a left upper quadrant 8 mm preschool assistant principal port site was placed. The patient was placed in steep Trendelenburg position. The robot was docked. The hysterectomy was initiated first by taking down the round ligament on each side using the vessel sealer device. The peritoneum between the round ligament and the IP ligament was opened using electrocautery and extended the length of the IP ligament. The IP ligament was then taken down using the vessel sealer device. These areas were freed without complication the broad ligament was then and taken down using the vessel sealer device. Next the bladder flap was taken down without complication. This was done using monopolar cautery to the level of the cervical vaginal junction. After the bladder flap was created, uterine vessels were then isolated and cauterized using the vessel sealer device and EndoShears. At this point the uterine vessels were taken down further starting from the ascending branch, dissecting along the edges of the cervix to the level of the cervical vaginal junction with hemostasis appreciated. The cervical vaginal junction was then using monopolar cautery in a circumferential pattern across the superior aspect of the cervix. The specimen was delivered through the vagina and sent to pathology. The remaining vaginal cuff was then closed using a V lock suture. This was performed in a running technique. Excellent hemostasis was obtained and good closure was noted. Irrigation was then performed. hemoblast was applied to some oozing spots on the cuff. All operative sites were noted to be hemostatic. A cystoscopy was performed with a 70 degree cystoscope through the urethra into the bladder without complication. The bladder was instilled with approximately 250 cc of normal saline. Intraoperative images were made. Ureteral orifices and jets were identified. No suture material was appreciated in the bladder. The bladder was then drained and cystoscope was removed. The abdominal cavity was again examined using the laparoscope after the robot was undocked. All operative sites were noted to be hemostatic. The trochars were removed under direct visualization without complication and pneumoperitoneum was reduced. At this point the skin was then closed using 4-0 Monocryl subcuticular stitch and sealed with surgical glue. The patient tolerated the procedure well sponge lap and needle counts were correct x2 the patient was taken to the recovery room in stable condition. Surgical Findings: normal uterus and tubes, normal right ovary. Enlarge left ovary with cyst that appears simple. Premium Note Interest Calculator Clerk manager telecom: Yes Laborer [place]: Mikel Cooper Tasks completed by mate first: Closing, Insert Trochanter, Hemostasis: Electrocautery and Retracting Additional preschool assistant principal?: No Complications Complications: No Admit VTE Documentation VTE Present on Admission: No VTE Mechan Device Prophylaxis: SCD's VTE Pharm Prophylaxis ordered?: No Multi Select Codes Urinary/Genital Urinary/Genital CPT Codes: 55028 TLH+BS/O <250gr uterus
--- NOTE | 2024-02-09 12:09 | PCM.POST.ANE ---
Anesthesia: Postop Eval I Current Vital Signs Temperature: 97.1 F Pulse Rate: 78 Blood Pressure: 96/65 Respiratory Rate: 16 Pulse Ox: 100 Oxygen Delivery Method: Simple Mask Oxygen Flow Rate (L/min): 6 Assessment Airway patent: Yes Spontaneous unlabored respirations: Yes Mental status: Asleep nausea: No Vomiting: No Anesthesia Complication: No Fluid Hydration Crystalloid volume administer (ml): 1,600 Total IV fluid infused: 1,600 Progress Note Anesthesia document: Postop Eval 1 completed: Yes
--- NOTE | 2024-02-09 16:19 | POSTOPAN2_ITS ---
Anesthesia Postop Eval I Sum Postop Eval Completion status Anesthesia document: Postop Eval 1 completed: Yes Anesthesia Postop Eval I Summary Anesthesia Postop Eval I Summary: Anesthesia Postop Eval I: Assessment Summary Airway patent Yes 02/09/24 12:10 COMMERCIAL TELLER.SKOBY Spontaneous unlabored Yes 02/09/24 12:10 COMMERCIAL TELLER.ROSA respirations Mental status Asleep 02/09/24 12:10 COMMERCIAL TELLER.SKOBY nausea No 02/09/24 12:10 COMMERCIAL TELLER.SKOBY Vomiting No 02/09/24 12:10 COMMERCIAL TELLER.GENNYOBJennie Anesthesia Postop Eval I: Fluid Summary Crystalloid volume administer 1,600 02/09/24 12:10 COMMERCIAL TELLER.SKOBY (ml) Colloids volume administered ( ml) Blood Product volume administered (ml) Total IV fluid infused 1,600 02/09/24 12:10 COMMERCIAL TELLER.GENNYOBJennie Anesthesia Postop Eval I: Summary Notes Anesthesia Complication No 02/09/24 12:10 COMMERCIAL TELLER.GENNYOBJennie Anesthesia Complication Comment: Post-operative progress note Anesthesia: Postop Eval II Evaluation Mental status: Awake and Calm Pain Level: 2 nausea: No Vomiting: No Complications Anesthesia Complication: No
--- NOTE | 2024-02-09 16:19 | PCM.POSTANE2 ---
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 Spontaneous unlabored Yes 02/09/24 12:10 MEDICARE SALES EXECUTIVE.ROSA respirations Mental status Asleep 02/09/24 12:10 MEDICARE SALES EXECUTIVE.SKOBY nausea No 02/09/24 12:10 MEDICARE SALES EXECUTIVE.SKOBY Vomiting No 02/09/24 12:10 MEDICARE SALES EXECUTIVE.GENNYOBJennie Anesthesia Postop Eval I: Fluid Summary Crystalloid volume administer 1,600 02/09/24 12:10 MEDICARE SALES EXECUTIVE.SKOBY (ml) Colloids volume administered ( ml) Blood Product volume administered (ml) Total IV fluid infused 1,600 02/09/24 12:10 MEDICARE SALES EXECUTIVE.GENNYOBJennie Anesthesia Postop Eval I: Summary Notes Anesthesia Complication No 02/09/24 12:10 MEDICARE SALES EXECUTIVE.GENNYOBJennie Anesthesia Complication Comment: Post-operative progress note Anesthesia: Postop Eval II Evaluation Mental status: Awake and Calm Pain Level: 2 nausea: No Vomiting: No Complications Anesthesia Complication: No
== END 2024-02-09 14:22 | disposition home or self-care (01) ==
LOC: SDC 08:23 → AC 08:24
PROVIDERS: Anesthesiology; PCP Nurse Practitioner; Referring Provider Obstetrics & Gynecology; Visit Provider Obstetrics & Gynecology
PROC: 0UT94ZZ Resection of Uterus, Percutaneous Endoscopic Approach (ICD-10-PCS; CPT 58571; principal; 2024-02-09 09:55)
DX: N93.8 Other specified abnormal uterine and vaginal bleeding (principal); C50.911 Malignant neoplasm of unspecified site of right female breast; Z79.4 Long term (current) use of insulin; E10.9 Type 1 diabetes mellitus without complications; N88.8 Other specified noninflammatory disorders of cervix uteri; N83.02 Follicular cyst of left ovary; D25.9 Leiomyoma of uterus, unspecified; E78.00 Pure hypercholesterolemia, unspecified; N83.8 Other noninflammatory disorders of ovary, fallopian tube and broad ligament; D27.0 Benign neoplasm of right ovary; R87.810 Cervical high risk human papillomavirus (HPV) DNA test positive; F17.290 Nicotine dependence, other tobacco product, uncomplicated; Z79.810 Long term (current) use of selective estrogen receptor modulators (SERMs); Z79.84 Long term (current) use of oral hypoglycemic drugs; Z79.85 Long-term (current) use of injectable non-insulin antidiabetic drugs; Z79.899 Other long term (current) drug therapy
CPT/HCPCS: 58571; S2900; 00840; 36415; 80053; 81025; 82962; 83036; 83735; 86850; 86900; 86901; 88307; 93005; J7120; J2405; J3475

== ENCOUNTER → 2024-02-29 | Outpatient (CLI) | payer OTHER, SELFPAY ==
--- NOTE | 2024-02-29 07:32 | ECHODONC_ITS ---
Reason For Study: CHEMOTHERAPY Procedure This was a 2D Doppler, Color Flow transthoracic echocardiogram. Myocardial strain analysis was performed in this exam to aid in the assessment of cardiac function. Exam performed in department. Left Ventricle Normal LV size. The global longitudinal strain = -20.1 % (normal). The left ventricular ejection fraction is 60 %. No regional wall motion abnormalities noted. Right Ventricle Normal RV size. Normal systolic function. Atria Normal left atrium. Normal right atrium. Mitral Valve Normal mitral valve. Tricuspid Valve Normal tricuspid valve. Aortic Valve Normal aortic valve. Trisinus/trileaflet aortic valve. Pulmonic Valve Normal pulmonic valve. Great Vessels Normal aortic root. The pulmonary artery is normal size. Inferior vena cava collapse with respiration. Pericardium/Pleural No pericardial effusion. MMode/2D Measurements & Calculations LVIDd: 4.3 cm IVSd: 1.2 cm LVOT diam: 2.0 cm LVIDs: 2.9 cm LVPWd: 0.99 cm LVOT area: 3.1 cm2 RVDd: 2.4 cm FS: 33.7 % asc Aorta Diam: 3.5 cm LAV(MOD-bp): 29.2 ml LVAd ap4: 19.0 cm2 LAV(MOD-bp) Indexed: 16.9 ml/m2 LVLd ap4: 6.7 cm LAV(MOD-sp2): 41.6 ml EDV(MOD-sp4): 44.4 ml LAV(MOD-sp4): 19.7 ml EDV(sp4-el): 45.5 ml LVAs ap4: 10.7 cm2 LVLs ap4: 5.6 cm ESV(MOD-sp4): 18.4 ml ESV(sp4-el): 17.3 ml EF(MOD-sp4): 58.6 % EF(sp4-el): 61.9 % LVAd ap2: 19.9 cm2 SV(MOD-sp4): 26.1 ml SV(MOD-sp2): 28.6 ml LVLd ap2: 7.5 cm SI(MOD-sp4): 15.1 ml/m2 SI(MOD-sp2): 16.6 ml/m2 EDV(MOD-sp2): 44.8 ml EDV(sp2-el): 44.6 ml LVAs ap2: 10.7 cm2 LVLs ap2: 6.0 cm ESV(MOD-sp2): 16.2 ml ESV(sp2-el): 16.2 ml EF(MOD-sp2): 63.9 % SV(sp4-el): 28.2 ml Ao sinus diam: 2.[address] Junction: 2.5 cm LA dimension(2D): 3.2 cm LA A4 area: 10.2 cm2 RA A4 area: 7.5 cm2 TAPSE: 1.7 cm Time Measurements MV dec time: 0.25 sec Doppler Measurements & Calculations MV E max james: 65.9 cm/sec Lat Peak E' James: 11.5 cm/sec Med Peak E' James: 10.2 cm/sec MV A max james: 72.2 cm/sec E/E' lat: 5.7 E/E' med: 6.5 MV E/A: 0.91 MV dec slope: 258.5 cm/sec2 Ao V2 max: 122.9 cm/sec LV V1 max: 81.0 cm/sec Ao max P.0 mmHg LV V1 max P.6 mmHg Ao V2 mean: 76.3 cm/sec LV V1 mean P.7 mmHg Ao mean P.6 mmHg LV V1 mean: 63.6 cm/sec Ao V2 VTI: 20.2 cm LV V1 VTI: 17.6 cm AV (velocity ratio): 0.87 LETI(I,D): 2.7 cm2 LETI(V,D): 2.0 cm2 SV(LVOT): 53.7 ml PA V2 max: 80.0 cm/sec ECHO/ONC Echo Complete Interpretation Summary Normal LV size. The global longitudinal strain = -20.1 % (normal). The left ventricular ejection fraction is 60 %. Structurally normal valves. Ordering Physician: Arelis Wang Referring Physician: Arelis Wang Performed By: Juana Rogers RDCS
[2024-02-29 07:57] LABS: Absolute Lymphocyte Count 1.79 X10^3/uL (0.83-4.51); Absolute Neutrophil Count 2.9 X10^3/uL (2.0-7.7); Basophil# 0.05 X10^3/uL; Basophil% 0.9 % (0-1); Eosinophils% 5.6 % (0-5); Hematocrit 36.4 % (37-47); Hemoglobin 11.6 g/dL (12.0-15.0); Lymphocyte # 1.79 X10^3/ul (0.83-4.51); Lymphocyte % 33.1 % (19-41); Mean Corp Hgb Conc 31.9 g/dL (32-36); Mean Corpuscular Hgb 28.7 pg (27.0-32.0); Mean Corpuscular Volume 90.1 fL (81-99); Mean Platelet Vol. 8.6 fl (6.2-12.0); Monocyte% 7.4 % (0-10); NRBC Flagged by Analyzer 0 % (0-5); Neutrophil # 2.85 X10^3/uL (2.7-7.7); Neutrophil % 52.8 % (47-70); Platelet Count 298 K/mm3 (150-450); RBC Distribution Width CV 13.9 % (11.6-14.6); RBC Distribution Width SD 46.2 fl (35.1-43.9); Red Blood Count 4.04 M/mm3 (4.2-5.4); White Blood Count 5.4 K/mm3 (4.4-11.0)
[2024-02-29 08:22] LABS: ALB/GLOB Ratio 1.3 RATIO (0.9-2.4); AST(SGOT) 20 U/L (15-37); Alanine Aminotransfer ALT/SGPT 23 U/L (13-56); Albumin, Serum 3.9 g/dL (3.2-5.0); Alkaline Phosphatase 32 U/L (45-117); Anion Gap 5 (5-15); BUN 18 mg/dL (7-18); BUN/Creat Ratio 17.5 RATIO (10-20); Calcium,Total 9.3 mg/dL (8.5-10.1); Chloride 113 mmol/L (98-107); Creatinine, Serum 1.03 mg/dL (0.55-1.02); EST Glomerular Filtration Rate 61 mL/min (>60); Est Glom Filt Rate - Afr Amer 74 mL/min (>60); Globulin 3.1 g/dL (2.2-4.2); Glucose 198 mg/dL (74-106); Sodium Level 143 mmol/L (136-145)
== END | disposition home or self-care (01) ==
LOC: CVS 07:28
PROVIDERS: PCP Nurse Practitioner; Referring Provider Nurse Practitioner Family; Visit Provider Nurse Practitioner Family
DX: Z01.818 Encounter for other preprocedural examination (principal); C50.911 Malignant neoplasm of unspecified site of right female breast; Z51.81 Encounter for therapeutic drug level monitoring; Z79.899 Other long term (current) drug therapy
CPT/HCPCS: 36415; 80053; 85025; 93306; 93356

== ENCOUNTER 2024-06-26 16:27 | Emergency (ER) | payer OTHER, SELFPAY ==
[2024-06-26] VITALS (12 sets, daily range): BP systolic 101–131; BP diastolic 74–93; PULSE 77–93; RESP 15–26; TEMP 36.6–36.8; O2SAT 89–99; BMI 27.1
--- NOTE | 2024-06-26 16:43 | EKG12_ITS ---
Test Reason : CP Blood Pressure : */* mmHG Vent. Rate : 79 BPM Atrial Rate : 79 BPM P-R Int : 148 ms QRS Dur : 80 ms QT Int : 382 ms P-R-T Axes : 26 37 -9 degrees QTcB Int : 438 ms Normal sinus rhythm Low voltage QRS Nonspecific T wave abnormality Abnormal ECG Confirmed by FRNACISCO VALLES, PRIMO ([id number]), research editor GEORGE REYES ([id number]) on 06/28/2024 8:26:54 AM Referred By: JASMINA/LAWANDA Confirmed By: PRIMO SINGH MD
[2024-06-26 16:56] LABS: Absolute Lymphocyte Count 2.42 X10^3/uL (0.83-4.51); Absolute Neutrophil Count 2.9 X10^3/uL (2.0-7.7); Basophil# 0.04 X10^3/uL; Basophil% 0.7 % (0-1); Eosinophils% 1.7 % (0-5); Hematocrit 37.1 % (37-47); Hemoglobin 12.5 g/dL (12.0-15.0); Lymphocyte # 2.42 X10^3/ul (0.83-4.51); Lymphocyte % 40.6 % (19-41); Mean Corp Hgb Conc 33.7 g/dL (32-36); Mean Corpuscular Hgb 29.3 pg (27.0-32.0); Mean Corpuscular Volume 86.9 fL (81-99); Mean Platelet Vol. 8.8 fl (6.2-12.0); Monocyte# 0.47 X10^3/uL; Monocyte% 7.9 % (0-10); NRBC Flagged by Analyzer 0 % (0-5); Neutrophil # 2.92 X10^3/uL (2.7-7.7); Neutrophil % 48.9 % (47-70); Platelet Count 237 K/mm3 (150-450); RBC Distribution Width CV 12.9 % (11.6-14.6); Red Blood Count 4.27 M/mm3 (4.2-5.4)
[2024-06-26 17:12] LABS: D-Dimer Quantitative (DVT/PE) 0.27 FEU/ug/m (0.27-0.49)
--- NOTE | 2024-06-26 17:20 | EDS_ITS ---
HPI History of Present Illness Chief Complaint: Chest Pain Informant: patient and spouse/S.O. Narrative Narrative: Continues pain left scapula goes across sharp in nature for the last 2 days. This morning left-sided sharp chest pain with pressure. States in the waiting room had shortness of breath nausea and lightheaded symptoms. No cardiac history. Hypertension hyperlipidemia history. No diabetes. Adopted therefore unclear on family history. No tobacco history. History of breast cancer in the past no current chemo. No history of PE or DVT. No recent travel or surgery. No recent cough. Prior Similar Symptoms: No CVD Risk Factors: Positive for Hypertension and Hypercholesterolemia; Negative for Diabetes or Smoking PE Risk Factors: Positive for Cancer; Negative for Recent Travel/Surgery, Recent Immobilization, Prior DVT or PE or OCP + Smoking + >/=35 PFSH PFSH Medical History History of breast cancer Chronic kidney disease History of renal disease Bone pain Screening for osteoporosis Visit for pelvic exam Well adult exam History of Clostridium difficile infection History of echocardiogram C. difficile diarrhea Hypokalemia Left ankle pain Anemia Encounter for chemotherapy management Encounter for monitoring cardiotoxic drug therapy Wears glasses Cancer Anxiety Insulin dependent diabetes mellitus Back pain Dietary restriction Former smoker Shortness of breath on exertion Hx of tear of ACL (anterior cruciate ligament) Liver hemangioma Encounter for insertion of venous access port Abnormal MRI Encounter for education CINV (chemotherapy-induced nausea and vomiting) Invasive ductal carcinoma of right breast Migraines Adopted Cleft lip Herpes simplex Hypercholesterolemia Home Medications ?Medication ?Instructions ?Recorded ?Last Taken ?Type multivitamin 1 tab PO DAILY 12/01/1701/28 History sumatriptan succinate 100 mg tablet 100 mg PO PRN PRN MIGRAINES 07/28/22 Unknown History blood sugar diagnostic (OneTouch #100 ea 06/12/23 Unkn own Rx Ultra Test strips) pen needle, diabetic 29 gauge x #270 ea 06/12/23 Unkno wn Rx 03/31 (BD Ultra-Fine Original Pen Needle) valacyclovir 1 gram tablet 1,000 mg PO TID PRN cod sor e 7 09/07/23 Unknown Rx days #21 tabs benzonatate 200 mg capsule 200 mg PO TID PRN cough #60 caps 12/30/23 Unknown Rx calcium 600 mg (as 1 tab PO DAILY 01/26/2401/28 History carbonate)-vitamin D3 5 mcg (200 unit) tablet atorvastatin 20 mg tablet 20 mg PO QDAY 06/06/24 Unkno wn History glyburide 5 mg tablet 10 mg (2 x 5 mg) PO BID 90 d ays 06/06/24 Unknown Rx #360 tabs loratadine 10 mg tablet (Claritin) 10 mg PO DAILY PRN 06/06/24 Unknown History tamoxifen 20 mg tablet 20 mg PO DAILY #90 TABLETS 0 06/06/24 Unknown Rx triamcinolone acetonide 0.5 % 1 applic topical TID #22 grams 06/06/24 Unknown Rx topical cream zolpidem 10 mg tablet 10 mg PO QHS PRN insomnia #3 0 tabs 06/06/24 Unknown Rx antiarthritic combination no.2 900 600 mg PO 06/22/24 Unknown History mg tablet (glucosamine-chondroitin) biotin 10,000 mcg capsule mcg PO 06/22/24 Unknown Hist ory insulin aspart U-100 100 unit/mL 100 unit subcut USEAS DIRECTD 90 06/22/24 Unknown Rx (3 mL) subcutaneous pen (Novolog days #90 mL FlexPen U-100 Insulin aspart) tirzepatide 5 mg/0.5 mL 5 mg (0.5 mL) subcut QWEEK # 2 mL 06/22/24 Unknown Rx subcutaneous pen injector (Mounjaro) topiramate 100 mg tablet 100 mg PO QDAY 06/22/24 Unkn own History Allergy/AdvReac Type Severity Reaction Status Date / Time codeine Allergy Severe rash Verified 06/26/24 16:28 hydrocodone (From Vicodin) Allergy Severe rash Verified 06/26/24 16:28 Penicillins Allergy Severe rash Verified 06/26/24 16:28 propoxyphene (From Allergy Severe rash Verified 06/26/24 16:28 Darvocet-N) caffeine AdvReac Severe migraine Verified 06/26/24 16:28 Family History Other Adopted Surgical History Hx of hysterectomy S/P CECILE-BSO History of lumpectomy of right breast Status post right breast lumpectomy Hx of surgical procedure Hx of nasal septoplasty Hx of tonsillectomy Cleft palate and cleft lip Social History Smoking Status: Former smoker second hand exposure: No alcohol intake: never substance use type: does not use additional social history: BoyfrienEryn TSANG ROS ED Constitutional Constitutional ED: Denies chills, fever(s) or sweats ENT ENT ED: Denies sore throat Cardiovascular Cardiovascular: Reports chest pain; Denies leg edema, palpitations or racing heartbeat Respiratory/Chest Respiratory/Chest: Reports dyspnea; Denies cough or dyspnea on exertion Gastrointestinal Gastrointestinal: Reports nausea; Denies abdominal pain, diarrhea or vomiting Genitourinary Genitourinary ED: Denies dysuria, hematuria or urinary frequency Musculoskeletal Musculoskeletal: Reports back pain; Denies extremity pain or neck pain Integumentary Denies rash or wounds Neurologic Neurologic: Denies headache(s), paresthesias or weakness EXAM Physical Exam Const Vital Signs: 06/26/24 16:27 06/26/24 16:35 06/26/24 16:45 Temperature 97.8 F Temperature Source Temporal Pulse Rate 89 83 80 Respiratory Rate 20 H 20 H 15 Respiratory Effort Blood Pressure 131/93 H Blood Pressure Mean 105 Pulse Ox 98 97 97 Oxygen Delivery Method Room Air 06/26/24 16:47 06/26/24 16:48 06/26/24 16:49 Temperature Temperature Source Pulse Rate 80 Respiratory Rate 20 H Respiratory Effort Normal Non-Labored Blood Pressure 125/74 H Blood Pressure Mean 88 Pulse Ox 95 Oxygen Delivery Method Room Air 06/26/24 17:00 06/26/24 17:15 06/26/24 17:34 Temperature Temperature Source Pulse Rate 77 79 93 Respiratory Rate 23 H 26 H 25 H Respiratory Effort Blood Pressure 113/80 118/77 Blood Pressure Mean 89 91 Pulse Ox 95 89 Oxygen Delivery Method 06/26/24 17:45 06/26/24 18:00 06/26/24 19:00 Temperature Temperature Source Pulse Rate 91 80 81 Respiratory Rate 23 H 19 H 24 H Respiratory Effort Blood Pressure 101/89 H Blood Pressure Mean 93 Pulse Ox 98 98 Oxygen Delivery Method Room Air 06/26/24 20:05 Temperature Temperature Source Pulse Rate 79 Respiratory Rate 22 H Respiratory Effort Blood Pressure 129/74 H Blood Pressure Mean 92 Pulse Ox 99 Oxygen Delivery Method Room Air Positive well nourished and well developed General Appearance ED: well developed and NAD HEENT Reports moist mucous membranes normocephalic and atraumatic Eyes General Eye ED: Yes normal appearance of both eyes Neck full ROM Neck Narrative: Negative Spurling's test of the neck. Chest Wall Chest: Negative for tenderness Resp normal respiratory effort and normal air movement Effort and Inspection: symmetric chest movement; Negative for respiratory distress Cardio regular rate, regular rhythm and no murmurs Peripheral Pulses: pulses 2+ throughout GI normal to inspection, nondistended, normoactive bowel sounds and non-tender Palpation: Negative for guarding or rebound tenderness present Extremity normal to inspection General Extremety ED: Negative for edema or tenderness General Extremity: Negative for edema Neuro oriented x3 and no sensory deficits noted Sensorium / Orientation: awake and alert Skin no rashes or lesions noted and no wounds Heart Score History: Slightly/Non-Suspicious ECG: Nonspecific Repolarization Age: >45 - <65 years Risk Factors: 1 or 2 Risk Factors Troponin: </= Normal Limit Score: 3 MDM MDM MDM Narrative Medical decision making narrative: Interventions / MDM: Differential diagnosis: Chest pain, back pain history of remote breast cancer Diagnosis considered but do not suspect: ACS however workup negative. PE/dissection however CT negative. My EKG interpretation: Sinus rate of 79, no ST changes. T wave version leads III and aVF flattening anterior leads. Similar findings January 2024. Imaging independently reviewed and interpreted by myself: 2 view chest x-ray: No acute process. CTA chest: No acute process. External documents reviewed: N/A Test considered but not ordered:N/A ED course: Patient presenting chest pains on and off this morning with exertion. Scapular pain cancer history no current chemo. Cardiac workup initiated along with D-dimer. EKG T wave version flattening anterior leads similar to January 2024. 1800: Patient negative D-dimer sent for chest x-ray interpreted by myself shows no acute process troponin less than 6. Reevaluation still having pain that would come and go pain in left shoulder. Discussed with waxing waning symptoms will further image with CT chest for further evaluation. Will await delta tropo oliver. 2009: Repeat troponin negative CT angiogram chest negative. Reassured on findings. She states she follows Dr. Cole, cardiology. She will follow-up with him further testing as needed discussed strict return precautions. All questions were answered. Re-evaluation: stable Disposition discussed with patient/family/significant other: Patient and significant other Case discussed with consulting clinician: N/A This note was generated with [employer] dictation software. It may contain incorrect words, spelling, and punctuation that were not noted in checking the note before signing. Lab Data Attestation: I reviewed the patient's lab results. Labs: Laboratory Results - last 24 hr 06/26/24 06/26/24 16:45 18:44 WBC 6.0 RBC 4.27 Hgb 12.5 Hct 37.1 MCV 86.9 MCH 29.3 MCHC 33.7 RDW Std Deviation 41.0 RDW Coeff of Aline 12.9 Plt Count 237 MPV 8.8 Immature Gran % (Auto) 0.200 Neut % (Auto) 48.9 Lymph % (Auto) 40.6 Foard % (Auto) 7.9 Eos % (Auto) 1.7 Baso % (Auto) 0.7 Absolute Neuts (auto) 2.9 Absolute Lymphs (auto) 2.42 Nucleated RBC % 0 D-Dimer Quant (PE/DVT) 0.27 Sodium 140 Potassium 3.9 Chloride 105 Carbon Dioxide 22.2 Anion Gap 13 BUN 17 Creatinine 0.84 Estim Creat Clear Calc 78.28 Est GFR (MDRD) Non-Af 86 BUN/Creatinine Ratio 20.5 H Glucose 146 H Calcium 9.5 Troponin T High Sens < 6 Troponin T Hi Sens 2 Hr < 6 Radiography Diagnostic Testing: Clinical Impression(s) from Imaging Studies Chest X-Ray 06/26/24 17:22 IMPRESSION: No active cardiopulmonary disease. Reading Location: [facility] Chest CTA 06/26/24 18:01 IMPRESSION: No evidence of pulmonary embolism or other significant abnormalities. Reading Location: [facility] Discharge Plan Triage Chief Complaint: Chest Pain ED Provider: Elvin Green Dx/Rx/DC Orders Clinical Impression: Chest pain, Back pain Instructions: ED Chest Pain, Uncertain Cause Prescriptions: No Action biotin 10,000 mcg capsule PO topiramate 100 mg tablet 100 mg PO QDAY glucosamine-chondroitin 900 mg tablet 600 mg PO Mounjaro 5 mg/0.5 mL pen injector 5 mg subcut QWEEK Qty: 2 3RF insulin aspart U-100 [Novolog FlexPen U-100 Insulin] 100 unit/mL (3 mL) insulin pen 100 unit subcut USEASDIRECTD MDD 100 90 Days Qty: 90 3RF multivitamin tablet 1 tab PO DAILY (DME) pen needle, diabetic [BD Ultra-Fine Orig Pen Needle] 29 gauge x 1/2 needle See Dose Instructions .ROUTE .MEDSUPPLY Qty: 270 3RF Dose Instruction: As directed Rx Instructions: As directed for insulin injections (DME) OneTouch Ultra Test Strip See Rx Instructions .ROUTE .MEDSUPPLY Qty: 100 3RF Rx Instructions: As directed valacyclovir 1 gram tablet 1,000 mg PO TID PRN (Reason: cod sore) 7 Days Qty: 21 12RF atorvastatin 20 mg tablet 20 mg PO QDAY glyburide 5 mg tablet 10 mg PO BID 90 Days Qty: 360 3RF tamoxifen 20 mg tablet 20 mg PO DAILY Qty: 90 3RF zolpidem 10 mg tablet 10 mg PO QHS PRN (Reason: insomnia) Qty: 30 5RF triamcinolone acetonide 0.5 % cream 1 applic topical TID Qty: 22 0RF sumatriptan succinate 100 mg tablet 100 mg PO PRN PRN (Reason: MIGRAINES) loratadine [Claritin] 10 mg tablet 10 mg PO DAILY PRN calcium carbonate-vitamin D3 600 mg-5 mcg (200 unit) tablet 1 tab PO DAILY benzonatate 200 mg capsule 200 mg PO TID PRN (Reason: cough) Qty: 60 6RF Primary Care Provider: Sima Loving NP Referrals: Ulises Cole MD [Med Staff - Active Staff] - 3-5 Days Sima Loving NP, HOSPICE OFFICE COORDINATOR-C [Primary Care Provider] - Activity Restrictions/Additional Instructions: Cardiac workup negative D-dimer negative CTA chest negative. Call Dr. Moon's office for further testing. If you develop worsening symptoms, return to the ED for reevaluation. Print Language: Citizen Of [place] Disposition Disposition: Home, Self Care
--- NOTE | 2024-06-26 17:22 | RAD_ITS ---
PROCEDURE: CHEST PA AND LATERAL 06/26/2024 REASON FOR EXAM: PAIN CHEST PAIN RADIATING DOWN LEFT ARM. TECHNIQUE: Frontal and lateral views of the chest. COMPARISON: 07/31/2022. FINDINGS: Lungs: Lungs clear of pneumonia and congestion. Pleura: No pleural effusions, thickening, or pneumothorax. Heart: Normal in size and configuration. Mediastinum/Romelia: Unremarkable. Great vessels: Unremarkable. Bones/soft tissues: Unremarkable. Cardiac monitoring leads overlie the chest wall. RAD/Chest PA and Lateral IMPRESSION: No active cardiopulmonary disease. Reading Location: [facility]
[2024-06-26 17:38] LABS: Anion Gap 13 (5-15); BUN 17 mg/dL (4-19); BUN/Creat Ratio 20.5 RATIO (10-20); Calcium,Total 9.5 mg/dL (7.6-11.0); Carbon Dioxide 22.2 mmol/L (21.0-32.0); Chloride 105 mmol/L (98-108); Creatinine, Serum 0.84 mg/dL (0.70-1.20); EST Glomerular Filtration Rate 86 (>60); Estimated Creatinine Clearance 78.28 ml/min (50-250); Glucose 146 mg/dL (70-99); Potassium 3.9 mmol/L (3.3-5.1); Sodium Level 140 mmol/L (133-145); Troponin T High Sensitivity < 6 ng/L (<=14)
--- NOTE | 2024-06-26 18:01 | CT_ITS ---
PROCEDURE: CTA CHEST W/WO CONTRAST 06/26/2024 REASON FOR EXAM: PAIN TECHNIQUE: Contiguous axial scans of 1.25 mm slice thicknesses. Sagittal and coronal reconstruction images were obtained. One or more dose reduction techniques were used (e.g., automated exposure control, adjustment of mA and/or kv according to patient size, use of iterative reconstruction technique). CONTRAST: Isovue 370 VOLUME: 100mL RADIATION DOSE SUMMARY: CTDlvol: 26.45 mGy DLP: 440.63 mGycm COMPARISON: PA and lateral chest dated 06/26/2024 FINDINGS: Hardware: Unremarkable Lymph nodes: No lymphadenopathy. Heart: Normal heart size. RV/LV Diameter Ratio: Normal. Thoracic Aorta: Normal. Pulmonary Vessels: No intraluminal filling defects. No dilatation centrally. Lungs and Airways: No consolidation or nodules. Pleura: No pleural effusions, pneumothorax, or thickening. Upper Abdomen: Unremarkable. Bones: Normal. CT/CTA Chest W/WO Contrast IMPRESSION: No evidence of pulmonary embolism or other significant abnormalities. Reading Location: [facility]
[2024-06-26 19:19] LABS: Troponin T High Sens 2 HR < 6 ng/L (<=14)
== END 2024-06-26 20:16 | disposition home or self-care (01) ==
PROVIDERS: Emergency Provider Emergency Medicine; PCP Nurse Practitioner; Visit Provider Emergency Medicine
DX: R07.9 Chest pain, unspecified (principal); Z79.4 Long term (current) use of insulin; E11.22 Type 2 diabetes mellitus with diabetic chronic kidney disease; M54.9 Dorsalgia, unspecified; N18.9 Chronic kidney disease, unspecified; E78.00 Pure hypercholesterolemia, unspecified; I12.9 Hypertensive chronic kidney disease with stage 1 through stage 4 chronic kidney disease, or unspecified chronic kidney disease; Z79.84 Long term (current) use of oral hypoglycemic drugs; Z79.85 Long-term (current) use of injectable non-insulin antidiabetic drugs; Z79.899 Other long term (current) drug therapy; Z85.3 Personal history of malignant neoplasm of breast; Z87.891 Personal history of nicotine dependence
CPT/HCPCS: 71046; 71275; 80048; 84484; 85025; 85379; 93005; 99284; Q9967; A4216

== ENCOUNTER → 2024-07-11 | Outpatient (CLI) | payer OTHER, SELFPAY ==
--- NOTE | 2024-07-11 08:02 | BI_ITS ---
EXAM: SCRN MAMM (CAD)W/TWAN BILAT DATE: 07/11/2024 CLINICAL HISTORY: F, Age 44 y/o , ANNUAL SCREENING, H/O BREAST CANCER BREAST CANCER RISK ASSESSMENT: Has not been calculated. TECHNIQUE: Bilateral screening digital breast tomosynthesis with 2D and 3D images. Computer aided detection. COMPARISON: Prior exam(s) dated 07/09/2023, 12/05/2022, and 07/15/2022. FINDINGS: TISSUE DENSITY: The breast tissue is heterogenously dense, which may obscure small masses. Bilateral Breast Mammographic Findings: There are no suspicious masses, suspicious cluster of microcalcifications, architectural distortion or secondary signs of malignancy identified in either breast. BI/SCRN MAMM (CAD)W/TWAN BILAT IMPRESSION: Right Breast: BIRADS 1 NEGATIVE. Left Breast: BIRADS 1 NEGATIVE. OVERALL FINAL ASSESSMENT: BIRADS 1 NEGATIVE RECOMMENDATION: Routine annual follow-up in 1 Year A letter with findings and recommendations will be mailed to the patient. Reading Location: [id number]
== END | disposition home or self-care (01) ==
LOC: OPBI 08:01
PROVIDERS: PCP Nurse Practitioner; Referring Provider Student in an Organized Health Care Education/Training Program; Visit Provider Student in an Organized Health Care Education/Training Program
DX: Z12.31 Encounter for screening mammogram for malignant neoplasm of breast (principal); Z85.3 Personal history of malignant neoplasm of breast
CPT/HCPCS: 77063; 77067

== ENCOUNTER → 2024-10-03 | Outpatient (CLI) | payer OTHER, SELFPAY ==
[2024-10-03 09:52] LABS: AST(SGOT) 26 U/L (<=31); Alanine Aminotransfer ALT/SGPT 28 U/L (<=34); Albumin, Serum 4.3 g/dL (3.5-5.0); Alkaline Phosphatase 55 U/L (35-104); Anion Gap 9 (5-15); BUN 11 mg/dL (4-19); BUN/Creat Ratio 11.8 RATIO (10-20); Bilirubin, Direct 0.11 mg/dL (0.00-0.30); Calcium,Total 9.6 mg/dL (7.6-11.0); Carbon Dioxide 26.3 mmol/L (21.0-32.0); Chloride 107 mmol/L (98-108); Cholesterol 138 mg/dL (<=200); Globulin 2.2 g/dL (2.2-4.2); Glucose 133 mg/dL (70-99); Low Density Lipoprotein Calc. 38 mg/dL; Potassium 4.1 mmol/L (3.3-5.1); Triglycerides 166 mg/dL; Very Low Density Lipoprotein 33 mg/dL (5-40); cholesterol:hdl ratio screen 2.07
[2024-10-03 10:27] LABS: Vitamin D,25 Hydroxy 30.0 ng/mL (30-100)
== END | disposition home or self-care (01) ==
LOC: LAB 08:13
PROVIDERS: Internal Medicine Cardiovascular Disease; PCP Nurse Practitioner; Referring Provider Nurse Practitioner Family; Visit Provider Nurse Practitioner Family
DX: E78.2 Mixed hyperlipidemia (principal); E11.9 Type 2 diabetes mellitus without complications; Z79.4 Long term (current) use of insulin
CPT/HCPCS: 36415; 80053; 80061; 82248; 82306

== ENCOUNTER 2025-02-22 07:09 | Day surgery (SDC) | payer OTHER, SELFPAY ==
--- NOTE | 2025-02-21 11:19 | PAT.ANESEVAL ---
Pre-Assessment Diagnosis/Proposed Procedure Planned Operative Procedure(s): COLONOSCOPY Anesthesia History Anesthesia History - impersonator character: Anesthesia History - impersonator character Hx Hospitalization No 02/21/25 09:04 Any Problems With Anesthesia Yes: N,V-SCOPOLAMINE CAUSES 02/21/25 09:04 NAUSEA Cholinesterase deficiency No 02/21/25 09:04 You/Your Family Experience No: ADOPTED 02/21/25 09:04 fever (hyperthermia) with Relationship Recent Exposure to Contagious No 02/09/24 09:31 Disease Does patient have nerve No 02/21/25 09:04 stimulator Patient instructed to have device shut off --Does patient have Pacemaker or ICD? When Was Last Pacemaker Check QUESTION #4 FULL TEXT: You/Your Family Experience fever (hyperthermia) with Anesthesia Last Oral Intake Last Oral intake: Last Oral Intake NPO since Meds taken in AM with sips of water? Meds patient instructed to take am of surgery PONV PONV - impersonator character: PONV - impersonator character Female Yes 02/21/25 09:04 HX of Motion Sickness Yes 02/21/25 09:04 HX of N/V After Surgery Yes 02/21/25 09:04 Non-Smoker Yes 02/21/25 09:04 Duration of Surgery greater No 02/21/25 09:04 than 60 minutes Number of Risk Factors 4 02/21/25 09:04 PONV Score Severe Risk 02/21/25 09:04 Height & Weight Height & Weight: Anesthesia: Height & Weight Height 5 ft 3 in 12/05/24 15:49 Respiratory Assessment Respiratory Assessment - impersonator character: Respiratory Tract Infection Hx - impersonator character Hx Respiratory Tract Infection No 02/21/25 09:04 STOP Sleep Apnea STOP Sleep Apnea - impersonator character: STOP Sleep Apnea - impersonator character Hx Hypertension No 02/21/25 09:04 Hx Sleep Apnea No 02/21/25 09:04 CPAP BIPAP Do you snore loudly (louder No 02/21/25 09:04 than talking or can be heard Do you often feel tired/ No 02/21/25 09:04 fatigued/ sleepy during daytime? Has anyone observed you stop No 02/21/25 09:04 breathing during sleep? STOP Results Negative 02/21/25 09:04 QUESTION #5 FULL TEXT : Do you snore loudly (louder than talking or can be heard through closed doors)? 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 Specify any problems Hx of Preganancy in last 3 No 02/21/25 09:04 Months Nurse Filling Out Transfusion VCHRISTIN 02/21/25 09:04 & Questions: Date: 02/21/25 02/21/25 09:04 Time: 09:06 02/21/25 09:04 Patient unable to answer at this time (ie. confused, unrespo /Reproduction History /Reproductive History - impersonator character: /Reproductive Hx- impersonator character Hx Now No 02/21/25 09:04 Gestational Age (in weeks): EDC: Hx Hx Para Hx Section SAB No 02/21/25 09:04 Does the father of the baby or his family experience fever w Father of the baby Malignant Hypertension history comment [facility] Medical History (Updated 02/21/25 @ 09:04 by Tisha Teixeira) Cardiology follow-up encounter History of breast cancer Chronic kidney disease History of renal disease Bone pain Screening for osteoporosis Visit for pelvic exam Well adult exam History of Clostridium difficile infection History of echocardiogram C. difficile diarrhea Hypokalemia Left ankle pain Anemia Encounter for chemotherapy management Encounter for monitoring cardiotoxic drug therapy Wears glasses Cancer Anxiety Insulin dependent diabetes mellitus Back pain Dietary restriction Former smoker Shortness of breath on exertion Hx of tear of ACL (anterior cruciate ligament) Liver hemangioma Encounter for insertion of venous access port Abnormal MRI Encounter for education CINV (chemotherapy-induced nausea and vomiting) Invasive ductal carcinoma of right breast Migraines Adopted Cleft lip Herpes simplex Hypercholesterolemia Home Medications ?Medication ?Instructions ?Recorded ?Last Taken ?Type multivitamin 1 tab PO DAILY 12/01/17 02/17/25 History sumatriptan succinate 100 mg tablet 100 mg PO PRN PRN MIGRAINES 07/28/22 Unknown History pen needle, diabetic 29 gauge x #270 ea 06/12/23 Unknown Rx 1/2 (BD Ultra-Fine Original Pen Needle) calcium 600 mg (as 2 tab PO DAILY 01/26/24 02/08/24 History carbonate)-vitamin D3 5 mcg (200 unit) tablet atorvastatin 20 mg tablet 20 mg PO QODAY 06/06/24 Unknown History loratadine 10 mg tablet (Claritin) 10 mg PO DAILY PRN allergy symptoms 06/06/24 Unknown History antiarthritic combination no.2 900 600 mg PO DAILY 06/22/24 Unknown History mg tablet (glucosamine-chondroitin) biotin 10,000 mcg capsule 10,000 mcg PO DAILY 06/22/24 Unknown History insulin aspart U-100 100 unit/mL 100 unit subcut USEASDIRECTD 90 06/22/24 Unknown Rx (3 mL) subcutaneous pen (Novolog days #90 mL FlexPen U-100 Insulin aspart) triamcinolone acetonide 0.5 % 1 applic topical TID PRN rash 09/15/24 Unknown History topical cream topiramate 100 mg tablet 100 mg PO QDAY #90 tabs 12/05/24 Unknown Rx valacyclovir 1 gram tablet 1,000 mg PO TID PRN cold sores 7 12/05/24 Unknown Rx days #21 tabs zolpidem 10 mg tablet 10 mg PO QHS insomnia #30 tabs 12/05/24 Unknown Rx ferrous sulfate 325 mg (65 mg 325 mg PO QDAY 12/29/24 02/15/25 History iron) tablet (Feosol) blood sugar diagnostic (OneTouch #100 ea 02/06/25 Unknown Rx Ultra Test strips) tirzepatide 15 mg/0.5 mL 15 mg (0.5 mL) subcut QWEEK #6 mL 02/16/25 02/14/25 Rx subcutaneous pen injector (Mounjaro) Allergy/AdvReac Type Severity Reaction Status Date / Time codeine Allergy Severe rash Verified 02/21/25 08:56 hydrocodone (From Vicodin) Allergy Severe rash Verified 02/21/25 08:56 Penicillins Allergy Severe rash Verified 02/21/25 08:56 propoxyphene (From Allergy Severe rash Verified 02/21/25 08:56 Darvocet-N) caffeine AdvReac Severe migraine Verified 02/21/25 08:56 trazodone AdvReac Severe made feel Verified 02/21/25 08:56 weird scopolamine AdvReac Mild Nausea Verified 02/21/25 08:57 Family History Other Adopted Surgical History (Updated 02/21/25 @ 09:04 by Tisha Teixeira) Hx of hysterectomy S/P CECILE-BSO History of lumpectomy of right breast Status post right breast lumpectomy Hx of surgical procedure Hx of nasal septoplasty Hx of tonsillectomy Cleft palate and cleft lip Social History Smoking Status: Former smoker second hand exposure: No alcohol intake: never substance use type: does not use additional social history: Boyfriend-Bhupendra Audit: Pertinent Findings HISTORY of Pertinent Findings History of Pertinent Findings: Her previous echocardiograms have demonstrated preserved ejection fraction the last of which was in February 2024 estimating ejection fraction of 60% with no wall motion abnormalities noted in global longitudinal strain of -20.1. Her physical exam is unremarkable her EKG demonstrates sinus rhythm with a rate of 73 bpm. Pertinent Findings EKG Perinent findings: 05/2024: NSR with low voltage QRS, nonspecific T wave abn Echo (EF%) pertinent findings: 02/2024: Normal LV size, EF 60%, WNL echo Recommendation Anesthesia Recommendation Anesthesia recommendation: OPTIMIZED for anesthesia
[2025-02-22] VITALS (7 sets, daily range): BP systolic 100–113; BP diastolic 74–87; PULSE 69–80; RESP 16–18; TEMP 36.2–36.6; O2SAT 97–100; BMI 25.0
--- OUTSIDE RECORDS SUMMARY | 2025-02-22 07:14 | XMS RPT_ITS | CCD ---
Author Organization [facility] Care Team Providers Care Rn Emergency Name Role Phone Unavailable Primary Care Provider Unavailabl DAINA Dumont Referring Unavailable DAINA VAUGHAN Referring Unavailable Loving OVER SHORT AND DAMAGE CLERK, OVER SHORT AND DAMAGE CLERK-C Jose Primary Care Provider Inder OVER SHORT AND DAMAGE CLERK, OVER SHORT AND DAMAGE CLERK-C Jose Referring Provider [phone] Dr. Mary Jo Deshpande Attending Provider Dr. Mary Jo Deshpande Other Provider Dr. Myrna Szymanski Attending Provider REBA TAN Attending Unavailable MARY JO DESHPANDE Referring Unavailable LOVING, JOSE L Primary Care Unavailable LOVING, JOSE L Primary Care Unavailable LOVING, JOSE L Referring Unavailable REBA TAN Attending Unavailable ROSANNA BLACKWOOD Attending Unavailable ROSANNA BLACKWOOD Referring Unavailable LOVING, JOSE L Primary Care Unavailable Felipe OVER SHORT AND DAMAGE CLERK, OVER SHORT AND DAMAGE CLERK-C Arelis Attending Provider [phone] Dr. Ulises Cole Attending Provider Dr. Mary Jo Deshpande Referring Provider OMA ALVARADO MD Attending Unavailable LOVING HEAD HOLDER-BEAN VINER, JOSE L Primary Care Unav ailable MARINELLI HEAD HOLDER-BEAN VINER, SERVANDO Attending Unavaila ble LOVING HEAD HOLDER-BEAN VINER, JOSE L Primary Care Unav ailable MARINELLI HEAD HOLDER-BEAN VINER, SERVANDO Attending Unavaila ble LOVING HEAD HOLDER-BEAN VINER, JOSE L Primary Care Unav ailable Loving OVER SHORT AND DAMAGE CLERK, OVER SHORT AND DAMAGE CLERK-C Jose Primary Care Provider Inder OVER SHORT AND DAMAGE CLERK, OVER SHORT AND DAMAGE CLERK-C Jose Referring Provider Felipe OVER SHORT AND DAMAGE CLERK, OVER SHORT AND DAMAGE CLERK-C Arelis Attending Provider Dr. Myrna Szymanski Attending Provider Dr. Ulises Cole Attending Provider Loving, Jose Primary Care Provider Corey Arvizu MD Loving OVER SHORT AND DAMAGE CLERK, OVER SHORT AND DAMAGE CLERK-C Jose Primary Care Provider Dr. Ulises Cole Attending Provider Inder OVER SHORT AND DAMAGE CLERK, OVER SHORT AND DAMAGE CLERK-C Jose Referring Provider Dr. Mary Jo Deshpande Attending Provider Dr. Mary Jo Deshpande Referring Provider Dr. Mary Jo Deshpande Other Provider Dr. Myrna Szymanski Attending Provider Dr. Mariano Karimi Attending Provider Dr. Reba Lopez Attending Provider Dr. Mariano Karimi Referring Provider Felipe OVER SHORT AND DAMAGE CLERK, OVER SHORT AND DAMAGE CLERK-C Arelis Attending Provider Dr. Lexx Lim Attending Provider Dr. Mary Jo Deshpande Attending Provider Inder OVER SHORT AND DAMAGE CLERK, OVER SHORT AND DAMAGE CLERK-C Jose Primary Care Provider Inder OVER SHORT AND DAMAGE CLERK, OVER SHORT AND DAMAGE CLERK-C Jose Referring Provider Dr. Ulises Cole Attending Provider Inder OVER SHORT AND DAMAGE CLERK, OVER SHORT AND DAMAGE CLERK-C Jose Primary Care Provider Inder OVER SHORT AND DAMAGE CLERK, OVER SHORT AND DAMAGE CLERK-C Jose Referring Provider Dr. Mariano Karimi Attending Provider Dr. Myrna Szymanski Attending Provider Manan OVER SHORT AND DAMAGE CLERK, OVER SHORT AND DAMAGE CLERK-C Deidre Attending Provider Inder OVER SHORT AND DAMAGE CLERK, OVER SHORT AND DAMAGE CLERK-C Jose Primary Care Provider Loving OVER SHORT AND DAMAGE CLERK, OVER SHORT AND DAMAGE CLERK-C Jose Referring Provider Dr. Lexx Lim Attending Provider Dr. Ulises Cole Attending Provider Dr. Mariano Karimi Attending Provider Felipe OVER SHORT AND DAMAGE CLERK, OVER SHORT AND DAMAGE CLERK-C Arelis Attending Provider Dr. Myrna Szymanski Attending Provider [place] OVER SHORT AND DAMAGE CLERK, OVER SHORT AND DAMAGE CLERK-C Deidre Attending Provider Loving OVER SHORT AND DAMAGE CLERK, OVER SHORT AND DAMAGE CLERK-C Jose Primary Care Provider Loving OVER SHORT AND DAMAGE CLERK, OVER SHORT AND DAMAGE CLERK-C Jose Referring Provider Loving OVER SHORT AND DAMAGE CLERK-C, Jose Primary Care Provider Felipe OVER SHORT AND DAMAGE CLERK-C, Arelis Attending Provider Felipe OVER SHORT AND DAMAGE CLERK-C, Arelis Referring Provider Dr. Ulises Cole MD Attending Provider Loving OVER SHORT AND DAMAGE CLERK-C, Jose Referring Provider Dr. Myrna Szymanski MD Attending Provider Dr. Reba Lopez DO Attending Provider Dr. Mariano Karimi DO Attending Provider Loving OVER SHORT AND DAMAGE CLERK-C, Jose Attending Provider Geo [place]-C Willy Attending Provider Dr. Elvin Green DO Emergency Provider Loving OVER SHORT AND DAMAGE CLERK-C, Jose Primary Care Provider Loving OVER SHORT AND DAMAGE CLERK-C, Jose Referring Provider Dr. Ulises Cole MD Attending Provider Felipe OVER SHORT AND DAMAGE CLERK-C, Arelis Attending Provider Dr. Elvin Green DO Attending Provider Dr. Mariano Karimi DO Referring Provider Loving OVER SHORT AND DAMAGE CLERK-C, Jose Primary Care Provider Loving OVER SHORT AND DAMAGE CLERK-C, Jose Referring Provider Dr. Mariano Karimi DO Attending Provider Dr. Myrna Szymanski MD Attending Provider Dr. Myrna Szymanski MD Referring Provider Felipe OVER SHORT AND DAMAGE CLERK-C, Arelis Attending Provider Loving OVER SHORT AND DAMAGE CLERK-C, Jose Primary Care Provider Loving OVER SHORT AND DAMAGE CLERK-C, Jose Referring Provider Ego OVER SHORT AND DAMAGE CLERK-C, Willy Attending Provider Dr. Elvin Green DO Attending Provider Dr. Elvin Green DO Emergency Provider Dr. Mariano Karimi DO Attending Provider Dr. Mariano Karimi DO Referring Provider Dr. Myrna Szymanski MD Attending Provider Dr. Myrna Szymanski MD Referring Provider Felipe OVER SHORT AND DAMAGE CLERK-C, Arelis Attending Provider Goe OVER SHORT AND DAMAGE CLERK-C, Willy Referring Provider Loving OVER SHORT AND DAMAGE CLERK-C, Jose Primary Care Physician Dr. Myrna Szymanski MD Attending Physician Loving OVER SHORT AND DAMAGE CLERK-C, Jose Referring Provider Felipe OVER SHORT AND DAMAGE CLERK-C, Arelis Attending Physician Geo OVER SHORT AND DAMAGE CLERK-C, Willy Attending Physician Geo OVER SHORT AND DAMAGE CLERK-C, Willy Referring Provider Loving OVER SHORT AND DAMAGE CLERK-C, Jose Attending Physician Jenny VALLES, Dr. Camargo Attending Physician Loving OVER SHORT AND DAMAGE CLERK-C, Jose Primary Care Physician [phone] Loving OVER SHORT AND DAMAGE CLERK-C, Jose Referring Provider Felipe OVER SHORT AND DAMAGE CLERK-C, Arelis Attending Physician Geo OVER SHORT AND DAMAGE CLERK-C, Willy Attending Physician Loving OVER SHORT AND DAMAGE CLERK-C, Jose Attending Physician Jenny VALLES, Dr. Camargo Attending Physician Dr. Myrna Szymanski MD Attending Physician Nessa VALLES, Dr. Norris Referring Provider Loving OVER SHORT AND DAMAGE CLERK, Jose Primary Care Unavailable Elvin Green Attending Unavailable Mary Jo Deshpande Attending Unavailable Loving OVER SHORT AND DAMAGE CLERK, Jose Primary Care Unavailable Willy Guardado Attending Unavailable Loving OVER SHORT AND DAMAGE CLERK, Jose Primary Care Unavailable Loving OVER SHORT AND DAMAGE CLERK, Jose Referring Unavailable Felipe OVER SHORT AND DAMAGE CLERK, Arelis Attending Unavailable Loving OVER SHORT AND DAMAGE CLERK, Jose Primary Care Unavailable Loving OVER SHORT AND DAMAGE CLERK, Jose Referring Unavailable Mary Jo Deshpande Attending Unavailable Loving OVER SHORT AND DAMAGE CLERK, Jose Referring Unavailable Loving OVER SHORT AND DAMAGE CLERK, Jose Primary Care Unavailable Loving OVER SHORT AND DAMAGE CLERK, Jose Referring Unavailable Myrna Szymanski Attending Unavailable Loving OVER SHORT AND DAMAGE CLERK, Jose Primary Care Unavailable Loving OVER SHORT AND DAMAGE CLERK, Jose Primary Care Unavailable Loving OVER SHORT AND DAMAGE CLERK, Jose Referring Unavailable Reba Lopez Attending Unavailabl e Loving OVER SHORT AND DAMAGE CLERK, Jose Primary Care Unavailable Loving OVER SHORT AND DAMAGE CLERK, Jose Referring Unavailable Reba Lopez Attending Unavailabl e Loving OVER SHORT AND DAMAGE CLERK, Jose Primary Care Unavailable Loving OVER SHORT AND DAMAGE CLERK, Jose Referring Unavailable Myrna Szymanski Attending Unavailable Loving OVER SHORT AND DAMAGE CLERK, Jose Primary Care Unavailable Loving OVER SHORT AND DAMAGE CLERK, Jose Referring Unavailable Mariano Karimi Attending Unavailable Loving OVER SHORT AND DAMAGE CLERK, Jose Primary Care Unavailable Loving OVER SHORT AND DAMAGE CLERK, Jose Referring Unavailable Felipe OVER SHORT AND DAMAGE CLERK, Arelis Attending Unavailable Loving OVER SHORT AND DAMAGE CLERK, Jose Primary Care Unavailable Loving OVER SHORT AND DAMAGE CLERK, Jose Referring Unavailable Ulises Cole Attending Unavailable Loving OVER SHORT AND DAMAGE CLERK, Jose Primary Care Unavailable Ulises Cole Attending Unavailable Loving OVER SHORT AND DAMAGE CLERK, Jose Primary Care Unavailable Loving OVER SHORT AND DAMAGE CLERK, Jose Referring Unavailable Willy Guardado Attending Unavailable Loving OVER SHORT AND DAMAGE CLERK, Jose Primary Care Unavailable Myrna Szymanski Referring Unavailable Myrna Szymanski Attending Unavailable Inder OVER SHORT AND DAMAGE CLERK, Jose Primary Care Unavailable Felipe OVER SHORT AND DAMAGE CLERK, Arelis Referring Unavailable Felipe OVER SHORT AND DAMAGE CLERK, Arelis Attending Unavailable Inder OVER SHORT AND DAMAGE CLERK, Jose Primary Care Unavailable Mariano Karimi Referring Unavailable Mariano Karimi Attending Unavailable Willy Guardado Referring Unavailable Willy Guardado Attending Unavailable Inder OVER SHORT AND DAMAGE CLERK, Jose Primary Care Unavailable Allergies Allergy Classification Reported Allergen(s) Allergy Type Date of Onset Reaction(s) Facility (1 source) Acetaminophen / HYDROcodone Drug Allergy 1 [facility] (20 sources) Codeine Drug Allergy 9 rash [facility] (2 sources) Penicillins Propensity to adverse reactions to drug 9 [facility] (6 sources) Acetaminophen Drug Allergy 9 [facility] (20 sources) Caffeine Drug Allergy 9 [facility] (20 sources) HYDROcodone Drug Allergy 9 [facility] (20 sources) Propoxyphene Drug Allergy 9 [facility] (20 sources) Penicillins Allergy to substance 9 [facility] (2 sources) traZODone Drug Allergy 5 made [facility] (1 source) Caffeine Drug Allergy 5 [facility] (1 source) Codeine Drug Allergy 5 [facility] (1 source) HYDROcodone Drug Allergy 5 [facility] (1 source) Penicillins Drug allergy (disorder) 5 [facility] (1 source) Propoxyphene Drug Allergy 5 [facility] (1 source) traZODone Drug Allergy 5 [facility] Medications Current Medications Medication Drug Class(es) Dates Sig (Normalized) Sig (Original) Antiarthritic Combination No.2 (Glucosamine-Chondroi tin) 900 mg tablet (5 sources) Start: 06-22-2024 Antiarthritic Combination No.2 (Glucosamine-Chondro itin) 900 mg tablet Active 600 mg PO June 22, 2024 12:00am Complies with drug therapy Start: 06-22-2024 Antiarthritic Combination No.2 (Glucosamine-Chondroitin) 900 mg tablet Active 600 mg PO June 22, 2024 12:00am atorvastatin 20 mg oral tabl et (20 sources) HMG-CoA Reductase Inhibitor Start: 06-06-2024 Start: 03-18-2024 End: 06-06-2024 Start: 03-18-2024 End: 06-06-2024 take 1 tablet by mouth at bedtime Atorvastatin 40 mg tablet Discontinued 40 mg PO AT BEDTIME 90 3 March 18, 2024 10:33am June 06, 2024 7:53pm Start: 12-01-2017 End: 03-18-2024 benzonatate 200 mg oral caps ule (20 sources) Non-narcotic Antitussive Start: 12-30-2023 Start: 04-21-2023 End: 05-18-2023 Start: 02-24-2022 End: 08-18-2022 Start: 03-25-2021 End: 06-11-2021 Start: 06-22-2019 End: 03-26-2020 Start: 06-22-2019 End: 03-26-2020 Benzonatate 200 mg capsule D iscontinued 200 mg PO 2 to 3 times per day as needed for cough 60 4 June 22, 2019 12:00am March 26, 2020 6:43pm Start: 12-01-2017 End: 09-08-2018 biotin 10 mg oral capsule (7 sources) Start: 06-22-2024 Start: 06-22-2024 Biotin 10,000 mcg capsule Active ug PO June 22, 2024 12:00am Complies with drug therapy calcium carbonate 1500 mg / cholecalciferol 200 unt oral tablet (7 sources) Vitamin D Start: 01-26-2024 Start: 01-26-2024 Calcium Carbon ate-Vitamin D3 600 mg-5 mcg (200 unit) tablet Active 1 {tbl} PO DAILY January 26, 2024 12:00am Complies with drug therapy cetirizine hydrochloride 10 mg oral capsule (10 sources) Histamine-1 Receptor Antagonist Start: 12-01-2017 take 1 capsule by mouth once daily Cetirizine (Zyrtec) 10 mg capsule Active 10 MG PO DAILY December 01, 2017 12:00am ferrous sulfate 325 mg oral tablet (1 source) Start: 12-29-2024 glyBURIDE 5 mg oral tablet (20 sources) Sulfonylurea Start: 10-17-2022 End: 06-06-2024 Start: 10-17-2022 End: 12-05-2024 Start: 10-17-2022 End: 10-17-2022 take 1 tablet by mouth twice daily Glyburide 5 mg tablet Discontinued 5 mg PO TWICE A DAY October 17, 2022 12:00am October 17, 2022 5:51pm Start: 10-17-2022 End: 12-05-2024 take 2 tablets by mouth twice daily Glyburide 5 mg tablet Discontinued 10 mg PO TWICE A DAY 360 90 June 06, 2024 7:57pm December 05, 2024 3:55pm Start: 06-13-2021 End: 04-21-2022 take 1 tablet by mouth twice daily Glyburide 5 mg tablet Discontinued 5 mg PO TWICE A DAY 180 June 13, 2021 12:00am April 21, 2022 6:23pm Start: 12-01-2017 End: 04-21-2022 Start: 12-01-2017 End: 04-21-2022 take 2 tablets by mouth twice daily Glyburide 5 mg tablet Discontinued 10 mg PO TWICE A DAY 360 June 11, 2021 8:54pm June 12, 2021 1:50pm Start: 12-01-2017 End: 06-12-2021 take 10 mg by mouth twice daily Glyburide Discontinued 10 MG PO TWICE A DAY 360 June 11, 2021 8:54pm June 12, 2021 1:50pm take 1 tablet by dai th once daily at breakfast glyBURIDE (DIABETA) 5 MG tablet Take 5 mg by mouth daily (with breakfast) 0 Active 3 ml insulin aspart, human 100 unt/ml pen injector (20 sources) Insulin Analog Start: 06-22-2024 Insulin Aspart U-100 (Novolog Flexpen U-100 Insulin) 100 unit/mL (3 mL) insulin pen Active 100 U SC Use as Directed 90 90 June 22, 2024 8:52am 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 Type 2 diabetes mellitus without complications Complies with drug therapy Start: 06-14-2024 End: 06-22-2024 Start: 06-14-2024 End: 06-22-2024 Insulin Aspart U-100 (Novolo g Flexpen U-100 Insulin) 100 unit/mL (3 mL) insulin pen Discontinued 1 sliding scale dose SC Use as Directed 15 90 3 June 14, 2024 12:00am June 22, 2024 8:53am 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 Type 2 diabetes mellitus without complications sliding scale is 1-100 U a day Start: 06-17-2021 End: 04-22-2022 Insulin Aspart U-100 (Novolo g Flexpen U-100 Insulin) 100 unit/mL (3 mL) insulin pen Discontinued 100 U SC DAILY 90 90 3 April 21, 2022 6:18pm April 22, 2022 12:38pm Start: 03-12-2019 End: 06-17-2021 Insulin Aspart U-100 (Novolo g Flexpen U-100 Insulin) 100 unit/mL (3 mL) insulin pen Discontinued 70 U SC DAILY 63 90 2 December 26, 2019 1:11pm March 01, 2021 3:42pm Start: 09-13-2018 End: 09-08-2019 Insulin Aspart U-100 (Novolo g Flexpen U-100 Insulin) 100 unit/mL (3 mL) insulin pen Discontinued 20 U SC .qid 72 90 3 September 13, 2018 2:58pm September 07, 2019 12:00am September 08, 2019 12:02am Start: 09-09-2018 End: 04-22-2022 Start: 09-09-2018 End: 09-13-2018 Insulin Aspart U-100 (Novolo g Flexpen U-100 Insulin) 100 unit/mL (3 mL) insulin pen Discontinued 10 U SC THREE TIMES A DAY 15 September 09, 2018 12:00am September 13, 2018 3:00pm insulin aspart ( NOVOLOG) 100 UNIT/ML injection vial Inject into the skin 3 times daily (before meals) 0 Active loperamide hydrochloride 2 mg oral capsule (3 sources) Opioid Agonist Start: 08-11-2022 take 1 capsule by mouth every six hours Loperamide (Anti-Diarrheal (Loperamide)) 2 mg capsule Active 2 MG PO EVERY 6 HOURS August 11, 2022 12:00am loratadine 10 mg oral tablet (20 sources) Start: 12-16-2022 End: 06-06-2024 Multivitamin preparation (18 sources) Start: 12-01-2017 take 1 tablet by mouth once daily Multivitamin Active 1 TABLET PO DAILY December 01, 2017 10:42am Start: 12-01-2017 take 1 tablet by dai once daily Multivitamin Active 1 TABLET PO DAILY December 01, 2017 12:00am Start: 12-01-2017 take 1 tablet by dai th once daily Multivitamin Active 1 TABLET PO DAILY November 30, 2017 11:00pm Multivitamin tablet (5 sources) Start: 12-01-2017 Multivitamin t ablet Active 1 {tbl} PO DAILY December 01, 2017 12:00am Complies with drug therapy Start: 12-01-2017 Multivitamin t ablet Active 1 {tbl} PO DAILY December 01, 2017 12:00am sodium chloride flush 0.9 % injection 3 mL (1 source) Start: 11-21-2020 sodium chlorid e flush 0.9 % injection 3 mL Tirzepatide (2 sources) Start: 12-19-2024 Start: 12-19-2024 Tirzepatide (M ounjaro) 15 mg/0.5 mL pen injector Active 15 mg SC EVERY WEEK 05 04December 19, 2024 12:00am Type 2 diabetes mellitus without complication Type 2 diabetes mellitus without complications 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 Complies with drug therapy Tirzepatide (Mounjaro) 10 mg /0.5 mL pen injector (4 sources) Start: 08-08-2024 Tirzepatide (M ounjaro) 10 mg/0.5 mL pen injector Active 10 mg SC EVERY WEEK 2 August 08, 2024 12:00am Start: 08-08-2024 End: 08-08-2024 Tirzepatide (Mounjaro) 10 mg /0.5 mL pen injector Discontinued 10 mg SC EVERY WEEK 2 August 08, 2024 12:00am August 08, 2024 7:37am topiramate 100 mg oral table t (20 sources) Start: 06-22-2024 End: 12-05-2024 Start: 12-01-2017 End: 04-18-2024 [facility] topiramate (TOPAMAX SPRINKLE) 25 MG capsule Take 25 mg by mouth 2 times daily 0 Active triamcinolone acetonide 5 mg/ml topical cream (12 sources) Corticosteroid Start: 06-06-2024 End: 09-15-2024 Vitamin B Complex (14 sources) Start: 07-28-2022 take 1 capsule by mouth once daily Vitamin B Complex Active 1 CAP PO DAILY July 27, 2022 11:00pm Start: 07-28-2022 take 1 capsule by mouth once d aily Vitamin B Complex Active 1 CAP PO DAILY July 28, 2022 12:00am (20 sources) Start: 09-29-2024 Start: 08-08-2024 End: 08-08-2024 Start: 08-08-2024 End: 09-29-2024 Start: 07-18-2024 End: 08-08-2024 Start: 06-22-2024 Start: 06-22-2024 End: 07-18-2024 Start: 06-06-2024 End: 06-22-2024 Start: 02-22-2024 End: 02-29-2024 Start: 09-07-2023 End: 09-16-2023 Start: 06-12-2023 Start: 06-12-2023 Start: 01-20-2023 End: 06-12-2023 Start: 11-24-2022 End: 07-09-2023 Start: 08-14-2022 End: 11-24-2022 Start: 07-28-2022 End: 12-07-2023 Start: 06-12-2021 End: 06-12-2023 Start: 06-12-2021 End: 01-20-2023 Start: 06-11-2021 End: 06-12-2021 Start: 06-11-2021 End: 06-12-2021 Start: 03-05-2021 End: 06-11-2021 Start: 02-28-2021 End: 06-11-2021 Start: 02-28-2021 End: 02-28-2021 Start: 09-22-2019 End: 06-11-2021 Start: 09-08-2018 End: 09-22-2019 Start: 03-03-2018 End: 09-08-2018 Start: 12-01-2017 Start: 12-01-2017 End: 02-28-2021 Completed/Discontinued Medications Medication Drug Class(es) Dates Sig (Normalized) Sig (Original) acetaminophen 325 mg / oxyCODONE hydrochloride 5 mg oral tablet (15 sources) Opioid Agonist Start: 12-25-2022 End: 01-20-2023 Start: 12-25-2022 End: 01-20-2023 Oxycodone-Acetaminophen 5-32 5 mg tablet Discontinued 1 {tbl} PO EVERY 6 HOURS as needed for pain 5 2 0 December 25, 2022 January 20, 2023 5:21pm Postoperative pain Other acute postprocedural pain Start: 12-25-2022 End: 01-20-2023 take 1 tablet by mouth every six hours Oxycodone-Acetaminophen Discontinued 1 TABLET PO EVERY 6 HOURS 5 2 December 25, 2022 January 20, 2023 5:21pm alogliptin 25 mg oral tablet (20 sources) Start: 12-01-2017 End: 12-14-2017 ascorbic acid 500 mg oral ca psule (20 sources) Vitamin C Start: 12-01-2017 End: 02-28-2021 Start: 12-01-2017 End: 02-28-2021 Ascorbic Acid (Vitamin C) 50 0 mg capsule Discontinued mg PO 0 December 01, 2017 12:00am February 28, 2021 7:42pm Start: 12-01-2017 End: 02-28-2021 Ascorbic Acid (Vitamin C) Di scontinued MG PO December 01, 2017 12:00am February 28, 2021 7:42pm azithromycin 250 mg oral tab let (20 sources) Macrolide Antimicrobial Start: 05-05-2023 End: 05-10-2023 Start: 02-24-2022 End: 03-01-2022 Start: 04-13-2020 End: 04-18-2020 jwiiijk-xhw-lis L7-O0-losabsgb 250 mg-40 mg-5 mg-125 unit tablet (18 sources) Start: 12-01-2017 End: 02-28-2021 take 1 tablet by mouth twice daily trrexzb-urn-fxp M4-D8-ovdmufmb 250 mg-40 mg-5 mg-125 unit tablet Discontinued 1 TABLET PO TWICE A DAY December 01, 2017 10:44am February 28, 2021 7:42pm Start: 12-01-2017 End: 02-28-2021 take 1 tablet by mouth twice daily qcaybbt-aoe-eyk D6-M0-gwaegflc 250 mg-40 mg-5 mg-125 unit tablet Discontinued 1 TABLET PO TWICE A DAY December 01, 2017 12:00am February 28, 2021 7:42pm Start: 12-01-2017 End: 02-28-2021 take 1 tablet by mouth twice daily xrxnail-dpc-bmn P7-M1-kowcryro 250 mg-40 mg-5 mg-125 unit tablet Discontinued 1 TABLET PO TWICE A DAY November 30, 2017 11:00pm February 28, 2021 6:42pm Jdaeqbd-Gum-Jvl W9-Z7-Qgaqnhkb 289-60-4-125 yt-sn-zy-unit tablet (5 sources) Start: 12-01-2017 End: 02-28-2021 Cadhxkx-Hwv-Rsi M2-E1-Qwuflpzm 867-42-4-125 sk-gw-tc-unit tablet Discontinued 1 {tbl} PO TWICE A DAY December 01, 2017 12:00am February 28, 2021 7:42pm cefdinir 300 mg oral capsule (20 sources) Cephalosporin Antibacterial Start: 12-30-2023 End: 01-12-2024 Start: 04-17-2023 End: 05-05-2023 Start: 06-02-2022 End: 07-21-2022 cefuroxime 500 mg oral table t (20 sources) Cephalosporin Antibacterial Start: 04-29-2018 End: 05-09-2018 cephalexin 500 mg oral capsu le (20 sources) Cephalosporin Antibacterial Start: 03-16-2024 End: 03-26-2024 Start: 06-22-2019 End: 07-02-2019 chondroitin sulfates 400 mg oral capsule (20 sources) Start: 12-01-2017 End: 07-21-2022 cinnamon bark 500 mg oral ca psule (20 sources) Start: 12-01-2017 End: 02-28-2021 Start: 12-01-2017 End: 02-28-2021 Cinnamon Bark (Cinnamon) 500 mg capsule Discontinued mg PO 0 December 01, 2017 12:00am February 28, 2021 7:42pm clarithromycin 500 mg oral tablet (20 sources) Macrolide Antimicrobial Start: 03-25-2021 End: 06-11-2021 dapagliflozin 10 mg oral tab let (14 sources) Sodium-Glucose Cotransporter 2 Inhibitor Start: 03-18-2024 End: 05-16-2024 Start: 12-03-2023 End: 02-29-2024 dexamethasone 4 mg oral tablet (20 sources) Corticosteroid Start: 07-21-2022 End: 12-10-2022 1 ml diphenhydrAMINE hydrochloride 50 mg/ml cartridge (1 source) Histamine-1 Receptor Antagonist Start: 11-21-2020 End: 11-21-2020 diphenhydrAMINE (BENADRYL) injection 25 mg doxycycline hyclate 100 mg oral capsule (20 sources) Tetracycline-class Drug Start: 05-02-2020 End: 07-02-2020 fenofibrate 145 mg oral tablet (20 sources) Peroxisome Proliferator Receptor alpha Agonist Start: 12-01-2017 End: 03-18-2024 fidaxomicin 200 mg oral tablet (20 sources) Macrolide Antibacterial Start: 11-24-2022 End: 12-06-2022 glipiZIDE er 10 mg 24 hr extended release oral tablet (20 sources) Sulfonylurea Start: 06-12-2021 End: 06-13-2021 Start: 06-12-2021 End: 06-13-2021 take 1 tablet by mouth twice daily Glipizide 10 mg tablet extended release 24hr Discontinued 10 mg PO TWICE A DAY 180 June 12, 2021 12:00am June 13, 2021 6:53pm glucosamine hydrochloride 1500 mg oral tablet (20 sources) Start: 12-01-2017 End: 07-21-2022 HYDROmorphone hydrochloride 2 mg oral tablet (7 sources) Opioid Agonist Start: 02-09-2024 End: 02-29-2024 3 ml insulin lispro 100 unt/ml pen injector (20 sources) Insulin Analog Start: 01-20-2023 End: 06-14-2024 Insulin Lispro (Humalog Kwikpen Insulin) 100 unit/mL insulin pen Discontinued 1 sliding scale dose SC THREE TIMES A DAY June 06, 2024 7:57pm June 14, 2024 1:16pm SLIDING SCALE 1-100 units a day Start: 01-20-2023 End: 06-14-2024 Insulin Lispro (Humalog Kwik pen Insulin) 100 unit/mL insulin pen Discontinued 1 sliding scale dose SC THREE TIMES A DAY June 06, 2024 7:57pm June 14, 2024 1:16pm Start: 01-20-2023 Insulin Lispro (Humalog Kwikpen Insulin) 100 unit/mL insulin pen Active 1 sliding scale dose SC THREE TIMES A DAY January 20, 2023 5:32pm Start: 07-28-2022 End: 01-20-2023 Insulin Lispro (Humalog Kwik pen Insulin) 100 unit/mL insulin pen Discontinued 0 - 100 U SC THREE TIMES A DAY July 28, 2022 3:33pm January 20, 2023 5:33pm SLIDING SCALE 7 units today 07/31/22 Start: 04-22-2022 End: 06-14-2024 Start: 04-22-2022 End: 07-28-2022 Insulin Lispro (Humalog Kwik pen Insulin) 100 unit/mL insulin pen Discontinued 100 U SC DAILY 90 90 3 April 22, 2022 1:00am July 28, 2022 3:33pm Start: 09-08-2018 End: 10-08-2018 Start: 09-08-2018 End: 10-08-2018 Insulin Lispro 100 unit/mL i nsulin pen Discontinued 20 U SC before meals as needed for diabetes 45 30 0 September 08, 2018 12:00am October 07, 2018 12:00am October 08, 2018 12:08am Start: 12-01-2017 End: 09-08-2018 Start: 12-01-2017 End: 09-08-2018 Insulin Lispro (Humalog Kwik pen Insulin) 200 unit/mL (3 mL) insulin pen Discontinued 80 U SC DAILY 46 3 December 07, 2017 12:13pm September 08, 2018 4:53pm patient takes 80 U/day needs 3 months supply 1 ml ketorolac tromethamine 30 mg/ml cartridge (1 source) Nonsteroidal Anti-inflammatory Drug, Cyclooxygenase Inhibitor Start: 11-21-2020 End: 11-21-2020 ketorolac (TORADOL) 30 MG/ML injection lactobacillus acidophilus [id number] unt oral capsule (15 sources) Start: 12-16-2022 End: 12-07-2023 Start: 12-16-2022 End: 12-07-2023 take 10 capsules by mouth once daily Lactobacillus Acidophilus (Probiotic) 10 billion cell capsule Discontinued 100 NMA PO DAILY December 16, 2022 12:00am December 07, 2023 5:33pm Lactobacillus Combination No.4 (Probiotic) 3 billion cell capsule (5 sources) Start: 02-22-2024 End: 02-29-2024 take 3 capsules by mouth once daily Lactobacillus Combination No.4 (Probiotic) 3 billion cell capsule Discontinued 3000 NMA PO daily February 22, 2024 1:00am February 29, 2024 10:08am administer with a meal levonorgestrel 0.596620 mg/hr intrauterine system (20 sources) Progestin, Progestin-containi ng Intrauterine Device Start: 02-24-2022 End: 07-21-2022 Start: 02-24-2022 End: 07-21-2022 Levonorgestrel (Mirena) 20 m cg/24 hours (8 yrs) 52 mg intrauterine device Discontinued 1 NMA INTRA-UTER ONCE February 24, 2022 1:00am July 21, 2022 4:34pm as a single dose Start: 02-24-2022 End: 07-21-2022 Levonorgestrel (Mirena) 20 m cg/24 hours (8 yrs) 52 mg intrauterine device Discontinued 1 DEVICE INTRA-UTER ONCE February 24, 2022 1:00am July 21, 2022 4:34pm as a single dose lidocaine 25 mg/ml / prilocaine 25 mg/ml topical cream (20 sources) Antiarrhythmic, Amide Local Anesthetic Start: 07-21-2022 End: 01-26-2024 Start: 07-21-2022 End: 01-26-2024 Lidocaine-Prilocaine 2.5-2.5 % cream Discontinued 1 NMA TOPICAL ONCE as needed for PORT ACCESS July 29, 2022 1:22pm January 26, 2024 11:26am Infiltrating ductal carcinoma of right breast Malignant neoplasm of unspecified site of right female breast Start: 07-21-2022 End: 07-29-2022 Lidocaine-Prilocaine Active 1 APPLIC TOPICAL ONCE July 29, 2022 1:22pm Start: 07-21-2022 End: 07-29-2022 Lidocaine-Prilocaine Discont inued 1 APPLIC TOPICAL ONCE July 21, 2022 12:00am July 29, 2022 1:22pm linagliptin 5 mg oral tablet (20 sources) Dipeptidyl Peptidase 4 Inhibitor Start: 04-21-2022 End: 04-22-2022 Start: 12-14-2017 End: 09-08-2018 Magic Mouth Wash (Bmx) (20 sources) Start: 11-24-2022 End: 07-09-2023 Magic Mouth Wash (Bmx) Disco ntinued 15 ML PO .Q6HR 180 November 24, 2022 8:39am July 09, 2023 9:17am diphenhydramine 12.5 mg/5 mL oral liquid 60 mL; aluminum-mag hydroxide-simethicone 400 mg-400 mg-40 mg/5 mL oral susp 60 mL; Lidocaine Viscous 2 % mucosal solution 60 mL; Per 180 mL Start: 11-24-2022 Magic Mouth Wa sh (Bmx) Active 15 ML PO .Q6HR 180 November 24, 2022 7:39am diphenhydramine 12.5 mg/5 mL oral liquid 60 mL; aluminum-mag hydroxide-simethicone 400 mg-400 mg-40 mg/5 mL oral susp 60 mL; Lidocaine Viscous 2 % mucosal solution 60 mL; Per 180 mL Start: 11-24-2022 Magic Mouth Wa sh (Bmx) Active 15 ML PO .Q6HR 180 November 24, 2022 8:39am diphenhydramine 12.5 mg/5 mL oral liquid 60 mL; aluminum-mag hydroxide-simethicone 400 mg-400 mg-40 mg/5 mL oral susp 60 mL; Lidocaine Viscous 2 % mucosal solution 60 mL; Per 180 mL Start: 08-14-2022 End: 11-24-2022 Magic Mouth Wash (Bmx) Disco ntinued 15 ML PO .Q6HR 180 August 13, 2022 11:00pm November 24, 2022 7:39am diphenhydramine 12.5 mg/5 mL oral liquid 60 mL; aluminum-mag hydroxide-simethicone 400 mg-400 mg-40 mg/5 mL oral susp 60 mL; Lidocaine Viscous 2 % mucosal solution 60 mL; Per 180 mL Start: 08-14-2022 End: 11-24-2022 Magic Mouth Wash (Bmx) Disco ntinued 15 ML PO .Q6HR 180 August 14, 2022 12:00am November 24, 2022 8:39am diphenhydramine 12.5 mg/5 mL oral liquid 60 mL; aluminum-mag hydroxide-simethicone 400 mg-400 mg-40 mg/5 mL oral susp 60 mL; Lidocaine Viscous 2 % mucosal solution 60 mL; Per 180 mL Start: 08-14-2022 Magic Mouth Wa sh (Bmx) Active 15 ML PO .Q6HR 180 August 14, 2022 12:00am diphenhydramine 12.5 mg/5 mL oral liquid 60 mL; aluminum-mag hydroxide-simethicone 400 mg-400 mg-40 mg/5 mL oral susp 60 mL; Lidocaine Viscous 2 % mucosal solution 60 mL; Per 180 mL Magic Mouth Wash (Bmx) 180 mL suspension (10 sources) Start: 11-24-2022 End: 07-09-2023 Magic Mouth Wash (Bmx) 180 m L suspension Discontinued 15 mL PO .Q6HR 180 November 24, 2022 8:39am July 09, 2023 9:17am Stomatitis Other forms of stomatitis diphenhydramine 12.5 mg/5 mL oral liquid 60 mL; aluminum-mag hydroxide-simethicone 400 mg-400 mg-40 mg/5 mL oral susp 60 mL; Lidocaine Viscous 2 % mucosal solution 60 mL; Per 180 mL Start: 11-24-2022 End: 07-09-2023 Magic Mouth Wash (Bmx) 180 m L suspension Discontinued 15 mL PO .Q6HR 180 November 24, 2022 8:39am July 09, 2023 9:17am diphenhydramine 12.5 mg/5 mL oral liquid 60 mL; aluminum-mag hydroxide-simethicone 400 mg-400 mg-40 mg/5 mL oral susp 60 mL; Lidocaine Viscous 2 % mucosal solution 60 mL; Per 180 mL Start: 08-14-2022 End: 11-24-2022 Magic Mouth Wash (Bmx) 180 m L suspension Discontinued 15 mL PO .Q6HR 180 August 14, 2022 12:00am November 24, 2022 8:39am Stomatitis Other forms of stomatitis diphenhydramine 12.5 mg/5 mL oral liquid 60 mL; aluminum-mag hydroxide-simethicone 400 mg-400 mg-40 mg/5 mL oral susp 60 mL; Lidocaine Viscous 2 % mucosal solution 60 mL; Per 180 mL Start: 08-14-2022 End: 11-24-2022 Magic Mouth Wash (Bmx) 180 m L suspension Discontinued 15 mL PO .Q6HR 180 August 14, 2022 12:00am November 24, 2022 8:39am diphenhydramine 12.5 mg/5 mL oral liquid 60 mL; aluminum-mag hydroxide-simethicone 400 mg-400 mg-40 mg/5 mL oral susp 60 mL; Lidocaine Viscous 2 % mucosal solution 60 mL; Per 180 mL metFORMIN hydrochloride 500 mg oral tablet (20 sources) Biguanide Start: 06-12-2021 End: 04-21-2022 2 ml metoclopramide 5 mg/ml prefilled syringe (1 source) Dopamine-2 Receptor Antagonist Start: 11-21-2020 End: 11-21-2020 metoclopramide (REGLAN) injection 10 mg mupirocin 0.02 mg/mg topical ointment (20 sources) RNA Synthetase Inhibitor Antibacterial Start: 08-18-2022 End: 01-20-2023 ondansetron 8 mg disintegrating oral tablet (20 sources) Serotonin-3 Receptor Antagonist Start: 07-21-2022 End: 07-09-2023 Start: 11-26-2020 End: 02-28-2021 oseltamivir 75 mg oral capsu le (7 sources) Neuraminidase Inhibitor Start: 04-28-2024 End: 05-03-2024 potassium chloride 20 meq ex tended release oral tablet (20 sources) Start: 12-12-2022 End: 01-20-2023 Start: 11-17-2022 End: 12-10-2022 predniSONE 10 mg oral tablet (20 sources) Start: 03-16-2024 End: 03-20-2024 Start: 05-05-2023 End: 07-09-2023 Start: 05-05-2023 End: 07-09-2023 take 40 mg by mouth once daily Prednisone Discontinued 40 MG PO DAILY May 05, 2023 1:00am July 09, 2023 9:18am Start: 06-02-2022 End: 07-21-2022 Start: 06-02-2022 End: 07-21-2022 take 40 mg by mouth once daily Prednisone Discontinued 40 MG PO DAILY June 02, 2022 1:00am July 21, 2022 4:34pm Start: 02-24-2022 End: 04-21-2022 Start: 02-24-2022 End: 04-21-2022 take 40 mg by mouth once daily Prednisone Discontinued 40 MG PO DAILY February 24, 2022 1:00am April 21, 2022 6:15pm Start: 03-25-2021 End: 06-11-2021 Start: 03-25-2021 End: 06-11-2021 take 40 mg by mouth once daily Prednisone Discontinued 40 MG PO DAILY March 25, 2021 1:00am June 11, 2021 8:52pm Start: 10-09-2020 End: 10-13-2020 Start: 10-09-2020 End: 10-13-2020 Prednisone Discontinued 20 M G PO TWICE A DAY 27 07October 09, 2020 12:00am October 13, 2020 12:01am 2 po bid 4D,1 po bid for 4 D, 1 po qd for 4 D 1/2 po qd for 2 days saccharomyces boulardii 250 mg oral capsule (7 sources) Start: 02-22-2024 End: 02-29-2024 Semaglutide (20 sources) Start: 09-16-2023 End: 12-07-2023 Semaglutide (Ozempic) 0.25 m g or 0.5 mg (2 mg/3 mL) pen injector Discontinued 0.25 mg SC EVERY WEEK 1.September 16, 2023 8:07pm December 07, 2023 5:36pm Start: 09-16-2023 End: 12-07-2023 Start: 09-16-2023 End: 12-07-2023 Semaglutide (Ozempic) 0.25 m g or 0.5 mg (2 mg/3 mL) pen injector Discontinued 0.25 mg SC EVERY WEEK 1.September 16, 2023 8:07pm December 07, 2023 5:36pm Start: 04-17-2023 End: 09-16-2023 Semaglutide (Ozempic) 0.25 m g or 0.5 mg (2 mg/3 mL) pen injector Discontinued 0.25 mg SC EVERY WEEK 1.April 17, 2023 4:24pm September 16, 2023 8:08pm Start: 04-17-2023 End: 09-16-2023 Start: 04-17-2023 End: 09-16-2023 Semaglutide (Ozempic) 0.25 m g or 0.5 mg (2 mg/3 mL) pen injector Discontinued 0.25 mg SC EVERY WEEK 1.84 April 17, 2023 4:24pm September 16, 2023 8:08pm Start: 04-17-2023 Semaglutide (O zempic) 0.25 mg or 0.5 mg (2 mg/3 mL) pen injector Active 0.25 MG SC EVERY WEEK 1.84 April 17, 2023 4:24pm Start: 04-17-2023 Semaglutide (O zempic) 0.25 mg or 0.5 mg (2 mg/3 mL) pen injector Active 0.25 MG SC EVERY WEEK 1.84 April 17, 2023 3:24pm Start: 04-13-2023 End: 04-17-2023 Start: 04-13-2023 End: 04-17-2023 Semaglutide (Ozempic) 0.25 m g or 0.5 mg (2 mg/3 mL) pen injector Discontinued 0.25 mg SC EVERY WEEK April 13, 2023 1:00am April 17, 2023 4:25pm for 4 weeks Start: 04-13-2023 End: 04-17-2023 Semaglutide (Ozempic) 0.25 m g or 0.5 mg (2 mg/3 mL) pen injector Discontinued 0.25 MG SC EVERY WEEK April 13, 2023 1:00am April 17, 2023 4:25pm for 4 weeks Start: 04-13-2023 End: 04-17-2023 Semaglutide (Ozempic) 0.25 m g or 0.5 mg (2 mg/3 mL) pen injector Discontinued 0.25 MG SC EVERY WEEK April 13, 2023 12:00am April 17, 2023 3:25pm for 4 weeks Start: 04-13-2023 Semaglutide (O zempic) 0.25 mg or 0.5 mg (2 mg/3 mL) pen injector Active 0.25 MG SC EVERY WEEK April 13, 2023 12:00am for 4 weeks Start: 04-08-2023 End: 04-17-2023 Semaglutide (Ozempic) 0.25 m g or 0.5 mg (2 mg/3 mL) pen injector Discontinued 0.25 mg SC EVERY WEEK 4.78 90 April 08, 2023 1:00am April 17, 2023 4:24pm for 4 weeks Start: 04-08-2023 End: 04-17-2023 Start: 04-08-2023 End: 04-17-2023 Semaglutide (Ozempic) 0.25 m g or 0.5 mg (2 mg/3 mL) pen injector Discontinued 0.25 mg SC EVERY WEEK 4.78April 08, 2023 1:00am April 17, 2023 4:24pm for 4 weeks Start: 04-08-2023 End: 04-17-2023 Semaglutide (Ozempic) 0.25 m g or 0.5 mg (2 mg/3 mL) pen injector Discontinued 0.25 MG SC EVERY WEEK 4.April 08, 2023 1:00am April 17, 2023 4:24pm for 4 weeks Start: 04-08-2023 End: 04-17-2023 Semaglutide (Ozempic) 0.25 m g or 0.5 mg (2 mg/3 mL) pen injector Discontinued 0.25 MG SC EVERY WEEK 4.April 08, 2023 12:00am April 17, 2023 3:24pm for 4 weeks Start: 04-08-2023 Semaglutide (O zempic) 0.25 mg or 0.5 mg (2 mg/3 mL) pen injector Active 0.25 MG SC EVERY WEEK 4.78April 08, 2023 12:00am for 4 weeks 0.25 mg, 0.5 mg dose 1.5 ml semaglutide 1.34 mg/ml pen injector (7 sources) Start: 12-07-2023 End: 01-12-2024 Start: 12-07-2023 End: 01-12-2024 Semaglutide 0.25 mg or 0.5 m g(2 mg/1.5 mL) pen injector Discontinued 0.5 mg SC EVERY WEEK 1December 07, 2023 12:00am January 12, 2024 5:54pm Semaglutide (14 sources) Start: 02-12-2024 End: 06-22-2024 Semaglutide (Ozempic) 1 mg/d ose (4 mg/3 mL) pen injector Discontinued 1 mg SC SA 3.75 30 February 12, 2024 4:28pm June 22, 2024 8:23am Start: 02-12-2024 End: 06-22-2024 Start: 02-12-2024 End: 06-22-2024 Semaglutide (Ozempic) 1 mg/d ose (4 mg/3 mL) pen injector Discontinued 1 mg SC SA 3.75 February 12, 2024 4:28pm June 22, 2024 8:23am Start: 01-12-2024 End: 02-12-2024 Start: 01-12-2024 End: 02-12-2024 Semaglutide (Ozempic) 1 mg/d ose (4 mg/3 mL) pen injector Discontinued 1 mg SC SA January 12, 2024 12:00am February 12, 2024 4:30pm SITagliptin 50 mg oral table t (20 sources) Dipeptidyl Peptidase 4 Inhibitor Start: 09-08-2018 End: 06-22-2024 take 1 tablet by mouth once gloria y SITagliptin (JANUVIA) 100 MG tablet Take 100 mg by mouth daily 0 Active 50 ml sodium chloride 9 mg/ml injection (1 source) Start: 11-21-2020 End: 11-21-2020 0.9 % sodium chloride bolus sulfamethoxazole 800 mg / trimethoprim 160 mg oral tablet (20 sources) Dihydrofolate Reductase Inhibitor Antibacterial, Sulfonamide Antimicrobial Start: 11-17-2022 End: 11-27-2022 Start: 11-17-2022 End: 11-27-2022 Sulfamethoxazole-Trimethopri m 800-160 mg tablet Discontinued 1 {tbl} PO TWICE A DAY as needed for folliculitis 10 November 17, 2022 10:15am November 26, 2022 12:00am November 27, 2022 12:04am Folliculitis Follicular disorder, unspecified Start: 11-17-2022 End: 11-27-2022 take 1 tablet by mouth twice daily Sulfamethoxazole-Trimethoprim Discontinu ed 1 TABLET PO TWICE A DAY 16 01November 17, 2022 10:15am November 27, 2022 12:04am Start: 10-17-2022 End: 10-28-2022 Start: 10-17-2022 End: 10-28-2022 Sulfamethoxazole-Trimethopri m 800-160 mg tablet Discontinued 1 {tbl} PO TWICE A DAY as needed for hematuria 20 10 October 18, 2022 5:02pm October 27, 2022 12:00am October 28, 2022 12:04am Start: 10-17-2022 End: 10-28-2022 take 1 tablet by mouth twice daily Sulfamethoxazole-Trimethoprim Discontinu ed 1 TABLET PO TWICE A DAY 16 01October 18, 2022 5:02pm October 28, 2022 12:04am Start: 08-18-2022 End: 08-28-2022 Start: 08-18-2022 End: 08-28-2022 Sulfamethoxazole-Trimethopri m 800-160 mg tablet Discontinued 1 {tbl} PO TWICE A DAY as needed for hematuria August 18, 2022 12:00am August 27, 2022 12:00am August 28, 2022 12:03am Start: 08-18-2022 End: 08-28-2022 take 1 tablet by mouth twice daily Sulfamethoxazole-Trimethoprim Discontinu ed 1 TABLET PO TWICE A DAY 16 01August 18, 2022 12:00am August 28, 2022 12:03am SUMAtriptan 100 mg oral tabl et (20 sources) Serotonin-1b and Serotonin-1d Receptor Agonist Start: 05-19-2018 End: 07-28-2022 Start: 12-01-2017 End: 03-26-2020 Start: 12-01-2017 End: 03-26-2020 Sumatriptan Succinate 6 mg/0 .5 mL pen injector Discontinued 6 mg SC every 1 to 4 hours as needed December 01, 2017 12:00am March 26, 2020 6:44pm take 1 tablet by dai th once as needed SUMAtriptan (IMITREX) 50 MG tablet Take 50 mg by mouth once as needed for Migraine 0 Active tamoxifen 20 mg oral tablet (20 sources) Estrogen Agonist/Antagonist Start: 02-16-2023 End: 09-02-2024 Tirzepatide (2 sources) Start: 06-22-2024 End: 07-18-2024 Start: 06-22-2024 End: 07-18-2024 Tirzepatide (Mounjaro) 5 mg/ 0.5 mL pen injector Discontinued 5 mg SC EVERY WEEK 2 3 June 22, 2024 12:00am July 18, 2024 7:36am 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 Type 2 diabetes mellitus without complications Tirzepatide (4 sources) Start: 06-06-2024 End: 06-22-2024 Start: 06-06-2024 End: 06-22-2024 Tirzepatide (Mounjaro) 2.5 m g/0.5 mL pen injector Discontinued 2.5 mg SC EVERY WEEK 2.5 30 0 June 06, 2024 12:00am July 05, 2024 12:00am June 22, 2024 8:40am for 4 weeks Start: 09-07-2023 End: 09-16-2023 Start: 09-07-2023 End: 09-16-2023 Tirzepatide (Mounjaro) 2.5 m g/0.5 mL pen injector Discontinued 2.5 mg SC EVERY WEEK 2 28 2 September 07, 2023 12:00am September 16, 2023 8:08pm Tirzepatide (2 sources) Start: 07-18-2024 End: 08-08-2024 Start: 07-18-2024 End: 08-08-2024 Tirzepatide (Mounjaro) 7.5 m g/0.5 mL pen injector Discontinued 7.5 mg SC EVERY WEEK 2 3 July 18, 2024 12:00am August 08, 2024 7:36am Type 2 diabetes mellitus without complication Type 2 diabetes mellitus without complications [facility] (current) use of insulin Tirzepatide (4 sources) Start: 08-08-2024 End: 08-08-2024 Start: 08-08-2024 End: 09-29-2024 Start: 08-08-2024 End: 08-08-2024 Tirzepatide (Mounjaro) 10 mg /0.5 mL pen injector Discontinued 10 mg SC EVERY WEEK 2 August 08, 2024 12:00am August 08, 2024 7:37am Start: 08-08-2024 End: 09-29-2024 Tirzepatide (Mounjaro) 10 mg /0.5 mL pen injector Discontinued 10 mg SC EVERY WEEK 2 3 August 08, 2024 12:00am September 29, 2024 9:47am Tirzepatide (2 sources) Start: 09-29-2024 End: 12-19-2024 Start: 09-29-2024 End: 12-19-2024 Tirzepatide (Mounjaro) 12.5 mg/0.5 mL pen injector Discontinued 12.5 mg SC EVERY WEEK 2 September 29, 2024 12:00am December 19, 2024 4:33pm Tirzepatide (Mounjaro) 2.5 mg/0.5 mL pen injector (8 sources) Start: 06-06-2024 End: 06-22-2024 Tirzepatide (Mounjaro) 2.5 mg/0.5 mL pen injector Discontinued 2.5 mg SC EVERY WEEK 2.5 30 June 06, 2024 12:00am July 05, 2024 12:00am June 22, 2024 8:40am for 4 weeks Start: 09-07-2023 End: 09-16-2023 Tirzepatide (Mounjaro) 2.5 m g/0.5 mL pen injector Discontinued 2.5 mg SC EVERY WEEK 2 September 07, 2023 12:00am September 16, 2023 8:08pm Tirzepatide (Mounjaro) 5 mg/ 0.5 mL pen injector (4 sources) Start: 06-22-2024 End: 07-18-2024 Tirzepatide (Mounjaro) 5 mg/ 0.5 mL pen injector Discontinued 5 mg SC EVERY WEEK 2 June 22, 2024 12:00am July 18, 2024 7:36am Start: 06-22-2024 Tirzepatide (M ounjaro) 5 mg/0.5 mL pen injector Active 5 mg SC EVERY WEEK 2 June 22, 2024 12:00am Tirzepatide (Mounjaro) 7.5 mg/0.5 mL pen injector (2 sources) Start: 07-18-2024 End: 08-08-2024 Tirzepatide (Mounjaro) 7.5 mg/0.5 mL pen injector Discontinued 7.5 mg SC EVERY WEEK 2 July 18, 2024 12:00am August 08, 2024 7:36am traZODone hydrochloride 50 mg oral tablet (5 sources) Serotonin Reuptake Inhibitor Start: 09-02-2024 End: 09-15-2024 valACYclovir 1000 mg oral tablet (20 sources) Herpesvirus Nucleoside Analog DNA Polymerase Inhibitor, Herpes Simplex Virus Nucleoside Analog DNA Polymerase Inhibitor, Herpes Zoster Virus Nucleoside Analog DNA Polymerase Inhibitor Start: 12-17-2018 End: 12-05-2024 Start: 12-17-2018 End: 06-12-2021 take 1000 mg by mouth three times daily Valacyclovir Discontinued 1000 MG PO THREE TIMES A DAY 17 10June 11, 2021 8:56pm June 12, 2021 1:52pm Start: 12-01-2017 End: 08-18-2018 Start: 12-01-2017 End: 08-18-2018 Valacyclovir (Valtrex) 1 gra m tablet Discontinued 1000 mg PO TWICE A DAY as needed for coldsores 14 7 12 May 19, 2018 4:11pm August 17, 2018 12:00am August 18, 2018 12:06am Vitamin B Complex Capsule (5 sources) Start: 07-28-2022 End: 12-07-2023 Vitamin B Complex Capsule Discontinued 1 NMA PO DAILY July 28, 2022 12:00am December 07, 2023 5:34pm vitamin b12 1 mg/ml injectable solution (2 sources) Vitamin B12 Start: 04-13-2020 End: 04-13-2020 inject 1000 ug by intramuscular injection once cyanocobalamin (vitamin B-12) 1,000 mcg/mL injection solution Discontinued 1000 MCG IM ONCE April 13, 2020 6:55pm April 13, 2020 6:55pm Start: 03-26-2020 End: 03-26-2020 inject 1000 ug by intramuscular injection once cyanocobalamin (vitamin B-12) 1,000 mcg/mL injection solution Discontinued 1000 MCG IM ONCE March 26, 2020 6:27pm March 26, 2020 8:24pm zolpidem tartrate 10 mg oral tablet (20 sources) gamma-Aminobutyric Acid-ergic Agonist Start: 01-02-2020 End: 12-05-2024 Start: 01-02-2020 End: 12-05-2024 take 1 tablet by mouth at bedtime as needed Zolpidem 10 mg tablet Discontinued 10 mg PO AT BEDTIME as needed for insomnia 30 June 06, 2024 7:58pm September 15, 2024 10:04am Start: 12-01-2017 End: 01-02-2020 Start: 12-01-2017 End: 01-02-2020 take 1 tablet by mouth at bedtime as needed Zolpidem (Ambien) 5 mg tablet Discontinued 5 mg PO AT BEDTIME as needed for insomnia 26 08December 27, 2018 2:33pm June 22, 2019 5:08pm Problems Active Problems Problem Classification Problem Date Documented Da te Episodic/Chronic Acute and unspecified renal failure (20 sources) Prerenal azotemia; Translations: [Unspecified kidney failure] 08-26-2022 Chronic Administrative/social admission (20 sources) Patient encounter status; Translations: [Counseling, unspecified] 07-21-2022 Episodic Bacterial infection; unspecified site (20 sources) Staphylococcal infectious disease; Translations: [Unspecified staphylococcus as the cause of diseases classified elsewhere] 08-18-2022 Episodic Cancer of breast (20 sources) Infiltrating duct carcinoma of breast; Translations: [Malignant neoplasm of unspecified site of right female breast] Onset: 12-29-2024 07-04-2022 Chronic Cancer of breast (7 sources) History of malignant neoplasm of breast; Translations: [Personal history of malignant neoplasm of breast] 05-16-2024 Episodic Chronic kidney disease (14 sources) Chronic kidney disease; Translations: [Chronic kidney disease, unspecified] Chronic Chronic kidney disease (2 sources) Chronic kidney disease Chronic obstructive pulmonary disease and bronchiectasis (20 sources) Bronchitis; Translations: [Bronchitis, not specified as acute or chronic] 03-25-2021 Episodic Deficiency and other anemia (17 sources) Anemia; Translations: [Anemia, unspecified] 10-06-2022 Episodic Deficiency and other anemia (20 sources) Anemia, unspecified; Translations: [Anemia, unspecified] 08-26-2022 Episodic Diabetes mellitus without complication (20 sources) Type 2 diabetes mellitus; Translations: [Type 2 diabetes mellitus without complications] Onset: 06-22-2024 12-08-2017 Chronic Diabetes mellitus without complication (2 sources) Diabetes mellitus without complication Disorders of lipid metabolism (20 sources) Hyperlipidemia; Translations: [Hyperlipidemia, unspecified] Onset: 10-06-2024 12-17-2018 Chronic E Codes: Adverse effects of medical drugs (20 sources) Adverse effect of other viral vaccines, initial encounter; Translations: [Adverse effect of COVID-19 vaccine] 11-26-2020 Episodic Fluid and electrolyte disorders (16 sources) Hypokalemia; Translations: [Hypokalemia] 11-17-2022 Episodic Headache; including migraine (20 sources) Migraine; Translations: [Migraine, unspecified, not intractable, without status migrainosus] 05-19-2018 Chronic Comment on above: ON MEDS Headache; including migraine (1 source) Acute headache; Translations: [Acute nonintractable headache, unspecified headache type] Episodic Intestinal infection (16 sources) Clostridium difficile diarrhea; Translations: [Enterocolitis due to Clostridium difficile, not specified as recurrent] 11-24-2022 Episodic Lymphadenitis (7 sources) Submental lymphadenopathy; Translations: [Localized enlarged lymph nodes] 03-16-2024 Episodic Maintenance chemotherapy; radiotherapy (20 sources) Patient encounter status; Translations: [Encounter for antineoplastic chemotherapy] 08-07-2022 Chronic Malaise and fatigue (20 sources) Fatigue; Translations: [Other fatigue] 07-17-2020 Episodic Nausea and vomiting (20 sources) Chemotherapy-induced nausea and vomiting; Translations: [Nausea with vomiting, unspecified] 07-21-2022 Episodic Neoplasms of unspecified nature or uncertain behavior (20 sources) Skin lesion; Translations: [Neoplasm of unspecified behavior of bone, soft tissue, and skin] 04-15-2020 Episodic Nonmalignant breast conditions (11 sources) Breast problem; Translations: [Disorder of breast, unspecified] Episodic Other aftercare (7 sources) Encounter for adjustment and management of vascular access device; Translations: [Fitting and adjustment of vascular catheter] 07-24-2022 Episodic Other aftercare (12 sources) Drug therapy finding; Translations: [Encounter for therapeutic drug level monitoring] 08-07-2022 Episodic Other aftercare (12 sources) Prevention status; Translations: [buttermaker continuous churn (current) use of selective estrogen receptor modulators (SERMs)] 05-18-2023 Episodic Other aftercare (7 sources) buttermaker continuous churn (current) use of selective estrogen receptor modulators (SERMs); Translations: [Use of selective estrogen receptor modulators (SERMs)] 05-18-2023 Episodic Other aftercare (9 sources) Long-term current use of drug therapy; Translations: [Encounter for therapeutic drug level monitoring] 08-07-2022 Episodic Other and unspecified benign neoplasm (20 sources) Hemangioma of liver; Translations: [Hemangioma of intra-abdominal structures] 07-25-2022 Episodic Other and unspecified benign neoplasm (11 sources) Hemangioma of intra-abdominal structures; Translations: [Hemangioma of intra-abdominal structures] 07-24-2022 Episodic Other bone disease and musculoskeletal deformities (7 sources) Bone pain; Translations: [Other specified disorders of bone, unspecified site] 12-03-2023 Episodic Other female genital disorders (12 sources) Abnormal uterine bleeding; Translations: [Abnormal uterine and vaginal bleeding, unspecified] 05-18-2023 Chronic Comment on above: IUD out w/breast CA dx 06/2022. Had 1 menses then, did chemo. Had menses Apr 2023 once chemo done. On tamoxifen. US ordered. Other female genital disorders (7 sources) Abnormal uterine and vaginal bleeding, unspecified; Translations: [Unspecified disorders of menstruation and other abnormal bleeding from female genital tract] 05-18-2023 Chronic Other gastrointestinal disorders (1 source) Irritable bowel syndrome without diarrhea; Translations: [Irritable bowel syndrome, unspecified] Onset: 02-22-2024 Chronic Other gastrointestinal disorders (19 sources) Diarrhea; Translations: [Diarrhea, unspecified] 10-12-2022 Episodic Other gastrointestinal disorders (17 sources) Diarrhea due to drug; Translations: [Toxic gastroenteritis and colitis] 08-26-2022 Episodic Other gastrointestinal disorders (11 sources) Toxic gastroenteritis and colitis; Translations: [Diarrhea] 08-26-2022 Episodic Other infections; including parasitic (20 sources) Post-viral disorder; Translations: [[id number] condition] 07-17-2020 Chronic Other lower respiratory disease (20 sources) Cough; Translations: [Cough] 04-29-2018 Episodic Other non-traumatic joint disorders (17 sources) Ankle pain; Translations: [Pain in left ankle and joints of left foot] 09-08-2022 Episodic Other non-traumatic joint disorders (2 sources) Pain in left ankle and joints of left foot; Translations: [Pain in joint, ankle and foot] 09-08-2022 Episodic Other nutritional; endocrine; and metabolic disorders (15 sources) Overweight; Translations: [Overweight] 06-22-2024 Episodic Other screening for suspected conditions (not mental disorders or infectious disease) (13 sources) Endometrium thickened; Translations: [Abnormal findings on diagnostic imaging of other specified body structures] 07-13-2023 Chronic Comment on above: 6mm. EMB: Other screening for suspected conditions (not mental disorders or infectious disease) (1 source) Encounter for screening mammogram for malignant neoplasm of breast; Translations: [Encounter for screening mammogram for malignant neoplasm of breast] Onset: 12-29-2024 Episodic Other skin disorders (20 sources) Alopecia; Translations: [Nonscarring hair loss, unspecified] 07-17-2020 Episodic Other skin disorders (18 sources) Folliculitis; Translations: [Follicular disorder, unspecified] 08-18-2022 Episodic Other upper respiratory infections (20 sources) Maxillary sinusitis; Translations: [Chronic maxillary sinusitis] 04-15-2020 Chronic Other upper respiratory infections (20 sources) Pharyngitis; Translations: [Acute pharyngitis, unspecified] 04-15-2020 Episodic Otitis media and related conditions (20 sources) Acute right otitis media; Translations: [Otitis media, unspecified, right ear] 05-02-2020 Episodic Ovarian cyst (13 sources) Cyst of ovary; Translations: [Unspecified ovarian cyst, unspecified side] 07-13-2023 Episodic Comment on above: Consult JV:CEA and C A 125, MRI. If ok and EMB nl, proceed w/oopherectomy Residual codes; unclassified (20 sources) Insomnia; Translations: [Insomnia, unspecified] 01-03-2020 Episodic Residual codes; unclassified (20 sources) Other specified postprocedural states; Translations: [Status post right breast lumpectomy] 01-08-2023 Episodic Residual codes; unclassified (15 sources) H/O: chemotherapy; Translations: [Personal history of antineoplastic chemotherapy] 03-05-2023 Episodic Comment on above: Neoadjuvant Residual codes; unclassified (8 sources) Personal history of antineoplastic chemotherapy; Translations: [Personal history of antineoplastic chemotherapy] 12-11-2022 Episodic Residual codes; unclassified (2 sources) Generalized aches and pains; Translations: [Pain, unspecified] 04-16-2023 Episodic Residual codes; unclassified (1 source) Pain, unspecified; Translations: [Generalized pain] 04-16-2023 Episodic Residual codes; unclassified (17 sources) Positive measurement finding; Translations: [Positive test for human papillomavirus (HPV)] 05-18-2023 Episodic Comment on above: 04/2022 neg pap, +hpv . 04/2023:neg pap and HPV Residual codes; unclassified (7 sources) History of total hysterectomy with bilateral salpingo-oophorectomy ; Translations: [Acquired absence of both cervix and uterus] 02-15-2024 Episodic Spondylosis; intervertebral disc disorders; other back problems (7 sources) Backache; Translations: [Dorsalgia, unspecified] 06-26-2024 Episodic Syncope (17 sources) Near syncope; Translations: [Syncope and collapse] 10-12-2022 Episodic Unclassified (2 sources) E10.9 - Type 1 diabetes mellitus without complications Unclassified (6 sources) Infiltrating ductal carcinoma of right breast; Translations: [C50.911 - Malignant neoplasm of unspecified site of right female breast] Unclassified (2 sources) Infiltrating ductal carcinoma of right breast Viral infection (20 sources) COVID-19; Translations: [Severe acute respiratory syndrome coronavirus 2 (SARS-CoV-2) detected] 05-02-2020 Episodic Past or Other Problems Problem Classification Problem Date Documented Da te Episodic/Chronic Nonspecific chest pain (8 sources) Chest pain; Translations: [Chest pain, unspecified] Onset: 06-30-2024 06-26-2024 Episodic Other aftercare (7 sources) Encounter for therapeutic drug level monitoring; Translations: [Encounter for therapeutic drug monitoring] Onset: 03-18-2024 08-04-2022 Episodic Other aftercare (1 source) MCC (current) use of insulin; Translations: [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] Onset: 09-15-2024 Episodic Other aftercare (1 source) Other longterm (current) drug therapy; Translations: [Other longterm (current) drug therapy] Onset: 03-18-2024 Episodic Results Test Name Value Interpretation Reference Range Facility Absolute lymphocyte countOrd ered By: Arelis Wang on 12-29-2024 Lymphocytes Auto (Unsp spec) [#/Vol] 1.84 10*3/uL 0.83-4.51 [facility] Anion gap in Serum or Plasma Ordered By: Arelis Wang on 12-29-2024 Anion gap [Moles/Vol] 10 mmol/L 5-15 [facility] Automated lymphocyte count a s percentage of total leukocytesOrdered By: rAelis Wang on 12-29-2024 Lymphocytes/100 WBC Auto (Unsp spec) 34.8 % - [facility] BUN/creatinine ratioOrdered By: Arelis Wang on 12-29-2024 Urea nitrogen/Creatinine [Mass ratio] 26.8 mg/mg High 10- [facility] Basophil percentageOrdered B y: Arelis Wang on 12-29-2024 Basophils/100 WBC (Bld) 0.9 % 0-1 [facility] Bilirubin, totalOrdered By: Arelis Wang on 12-29-2024 Bilirubin [Mass/Vol] 0.32 mg/dL 0.00-1.30 [facility] CBC W/Diff, Automatedon Absolute Lymph 1.84 X10 3/uL Normal 0.83-4.51 [facility] Comment on above: Performed By: #### L 500.4050, L100.0100 ####[facility] [address] [place], [address] Absolute Neut 3.0 X10 3/uL Normal 2.0-7.7 [facility] Comment on above: Performed By: #### L 500.4050, L100.0100 ####[facility] [address] [place], [address] Basophils/100 WBC (Bld) 0.9 % Normal 0-1 [facility] Comment on above: Performed By: #### L 500.4050, L100.0100 ####[facility] [address] [place], [address] Eosinophils/100 WBC (Bld) 1.5 % Normal 0-5 [facility] Comment on above: Performed By: #### L 500.4050, L100.0100 ####[facility] [address] [place], [address] Erythrocyte distribution width (RBC) [Ratio] 12.9 % Normal 11.6-14.6 [facility] Comment on above: Performed By: #### L 500.4050, L100.0100 ####[facility] [address] [place], [address] Hematocrit (Bld) [Volume fraction] 38.1 % Normal 37-47 [facility] Comment on above: Performed By: #### L 500.4050, L100.0100 ####[facility] [address] [place], [address] Hemoglobin (Bld) [Mass/Vol] 12.8 g/dL Normal 12.0-15.0 [facility] Comment on above: Performed By: #### L 500.4050, L100.0100 ####[facility] [address] [place], [address] IG% 0.200 Normal 0.0-0.9 [facility] Comment on above: Result Comment: IG% - Immature Granulocytes (promyelocytes, myelocytes and metamyelocytes) > 1% indicates that a LEFT SHIFT is Present. Performed By: #### L 500.4050, L100.0100 ####[facility] [address] [place], [address] Lymphocytes/100 WBC (Bld) 34.8 % Normal 19-41 [facility] Comment on above: Performed By: #### L 500.4050, L100.0100 ####[facility] [address] [place], [address] MCH (RBC) [Entitic mass] 29.3 pg Normal 27.0-32.0 [facility] Comment on above: Performed By: #### L 500.4050, L100.0100 ####[facility] [address] [place], [address] MCHC (RBC) [Mass/Vol] 33.6 g/dL Normal 32-36 [facility] Comment on above: Performed By: #### L 500.4050, L100.0100 ####[facility] [address] [place], [address] MCV (RBC) [Entitic vol] 87.2 fL Normal 81-99 [facility] Comment on above: Performed By: #### L 500.4050, L100.0100 ####[facility] [address] [place], [address] Monocytes/100 WBC (Bld) 5.9 % Normal 0-10 [facility] Comment on above: Performed By: #### L 500.4050, L100.0100 ####[facility] [address] [place], [address] Neutrophils/100 WBC (Bld) 56.7 % Normal 47-70 [facility] Comment on above: Performed By: #### L 500.4050, L100.0100 ####[facility] [address] [place], [address] Nucleated RBC (Bld) [#/Vol] 0 10*3/uL Normal 0-5 [facility] Comment on above: Performed By: #### L 500.4050, L100.0100 ####[facility] [address] [place], [address] Platelet mean volume (Bld) [Entitic vol] 8.5 fL Normal 6.2-12.0 [facility] Comment on above: Performed By: #### L 500.4050, L100.0100 ####[facility] [address] [place], [address] Platelets (Bld) [#/Vol] 238 10*3/uL Normal 150-450 [facility] Comment on above: Performed By: #### L 500.4050, L100.0100 ####[facility] [address] [place], [address] RBC (Bld) [#/Vol] 4.37 10*6/uL Normal 4.2-5.[address] [facility] Comment on above: Performed By: #### L 500.4050, L100.0100 ####[facility] [address] [place], [address] RDW SD 40.8 fl Normal 35.1-43.9 [facility] Comment on above: Performed By: #### L 500.4050, L100.0100 ####[facility] [address] [place], [address] WBC (Bld) [#/Vol] 5.3 10*3/uL Normal 4.4-11.0 [facility] Comment on above: Performed By: #### L 500.4050, L100.0100 ####[facility] [address] [place], [address] Carbon dioxide, total [Moles /volume] in Central venous bloodOrdered By: Arelis Wang on 12-29-2024 CO2 [Moles/Vol] 23.7 mmol/L 21.0-32.0 [facility] Chloride assayOrdered By: Dylan Wang on 12-29-2024 Chloride [Moles/Vol] 106 mmol/L 98-108 [facility] Comprehensive Metabolic Prof ilon 12-29-2024 Albumin [Mass/Vol] 4.6 g/dL Normal 3.5-5.0 [facility] Comment on above: Performed By: #### L 500.4050, L100.0100 ####[facility] [address] [place], [address] Albumin/Globulin [Mass ratio] 2.1 {ratio} Normal 0.9-2.4 [facility] Comment on above: Performed By: #### L 500.4050, L100.0100 ####[facility] [address] [place], [address] ALK PHOS 60 U/L Normal 35-104 [facility] Comment on above: Performed By: #### L 500.4050, L100.0100 ####[facility] [address] [place], [address] ALT [Catalytic activity/Vol] 42 U/L High <=34 [facility] Comment on above: Performed By: #### L 500.4050, L100.0100 ####[facility] [address] [place], [address] AST [Catalytic activity/Vol] 32 U/L Normal <=31 [facility] Comment on above: Performed By: #### L 500.4050, L100.0100 ####[facility] [address] [place], [address] Bilirubin [Mass/Vol] 0.32 mg/dL Normal 0.00-1.30 [facility] Comment on above: Performed By: #### L 500.4050, L100.0100 ####[facility] [address] [place], [address] BUN/CRE 26.8 RATIO High 10-20 [facility] Comment on above: Performed By: #### L 500.4050, L100.0100 ####[facility] [address] [place], [address] Calcium [Mass/Vol] 9.3 mg/dL Normal 7.6-11.0 [facility] Comment on above: Performed By: #### L 500.4050, L100.0100 ####[facility] [address] [place], [address] Chloride [Moles/Vol] 106 mmol/L Normal 98-108 [facility] Comment on above: Performed By: #### L 500.4050, L100.0100 ####[facility] [address] [place], [address] CO2 [Moles/Vol] 23.7 mmol/L Normal 21.0-32.0 [facility] Comment on above: Performed By: #### L 500.4050, L100.0100 ####[facility] [address] [place], [address] Creatinine [Mass/Vol] 0.74 mg/dL Normal 0.70-1.20 [facility] Comment on above: Performed By: #### L 500.4050, L100.0100 ####[facility] [address] [place], [address] ECRCL 86.06 ml/min Normal 50-250 [facility] Comment on above: Performed By: #### L 500.4050, L100.0100 ####[facility] [address] [place], [address] GAP 10 Normal 5-15 [facility] Comment on above: Performed By: #### L 500.4050, L100.0100 ####[facility] [address] [place], [address] GFR/1.73 sq M.predicted among non-blacks MDRD (S/P/Bld) [Vol rate/Area] 101 mL/min/{1.73_m2} Normal >60 [facility] Comment on above: Result Comment: mL/m in/1.73m2 CKD-EPI Creatinine Equation (2020) Performed By: #### L 500.4050, L100.0100 ####[facility] [address] [place], [address] Globulin (S) [Mass/Vol] 2.2 g/dL Normal 2.2-4.2 [facility] Comment on above: Performed By: #### L 500.4050, L100.0100 ####[facility] [address] [place], [address] Glucose [Mass/Vol] 144 mg/dL High 70-99 [facility] Comment on above: Performed By: #### L 500.4050, L100.0100 ####[facility] [address] [place], [address] Potassium [Moles/Vol] 4.4 mmol/L Normal 3.3-5.1 [facility] Comment on above: Performed By: #### L 500.4050, L100.0100 ####[facility] [address] [place], [address] Sodium [Moles/Vol] 139 mmol/L Normal 133-145 [facility] Comment on above: Performed By: #### L 500.4050, L100.0100 ####[facility] [address] [place], [address] T PROT 6.8 g/dL Normal 5.9-8.4 [facility] Comment on above: Performed By: #### L 500.4050, L100.0100 ####[facility] [address] [place], [address] Urea nitrogen [Mass/Vol] 20 mg/dL High 4-19 [facility] Comment on above: Performed By: #### L 500.4050, L100.0100 ####[facility] [address] [place], [address] Eosinophil percentageOrdered By: Arelis Wang on 12-29-2024 Eosinophils/100 WBC (Bld) 1.5 % 0-5 [facility] Erythrocyte distribution wid th ratioOrdered By: Arelis Wang on 12-29-2024 Erythrocyte distribution width (RBC) [Ratio] 12.9 % 11.6-14.6 [facility] Erythrocyte distribution wid th standard deviationOrdered By: Arelis Wang on 12-29-2024 Erythrocyte distribution width (RBC) [Ratio] 40.8 fl 35.1-43.9 [facility] Glomerular filtration rate ( GFR) estimation/1.73 sq m using serum, plasma, or whole bOrdered By: Arelis Wang on 12-29-2024 GFR/1.73 sq M.predicted among non-blacks MDRD (S/P/Bld) [Vol rate/Area] 101 mL/min/{1.73_m2} >60 [facility] Hematocrit Auto (Bld) [Volum e fraction]Ordered By: Arelis Wang on 12-29-2024 Hematocrit (Bld) [Volume fraction] 38.1 % 37-47 [facility] Hemoglobin measurementOrdere d By: Arelis Wang on 12-29-2024 Hemoglobin (Bld) [Mass/Vol] 12.8 g/dL 12.0-15.0 [facility] Immature granulocytes/100 WB C Auto (Bld)Ordered By: Arelis Wang on 12-29-2024 Immature granulocytes/100 WBC (Bld) 0.200 % 0.0-0.9 [facility] MCV (mean corpuscular volume ) determinationOrdered By: Arelis Wang on 12-29-2024 MCV (RBC) [Entitic vol] 87.2 fL 81-99 [facility] Mean corpuscular hemoglobin (MCH) determinationOrdered By: Arelis Wang on 12-29-2024 MCH (RBC) [Entitic mass] 29.3 pg 27.0-32.0 [facility] Monocyte percentageOrdered B y: Arelis Wang on 12-29-2024 Monocytes/100 WBC (Bld) 5.9 % 0-10 [facility] Neutrophil percentageOrdered By: Arelis Wang on 12-29-2024 Neutrophils/100 WBC (Bld) 56.7 % 47-70 [facility] No Panel InformationOrdered By: Arelis Wang on 12-29-2024 32 U/L <32 [facility] Oncology Visit Reporton 10-0 Oncology Visit Report [facility] [place] [facility] [place] [address] OFFICE VISIT Date of Service: 12/29/24 0950 MR#: [id number] Acct: [id number] Name: ISABELLE NAGY Rep #: [id number] : 1980 From: Myrna Szymanski MD Age/Sex: 44/F Location: [facility] Status: Signed HPI Subjective Date of Service 12/29/24 Chief Complaint breast cancer on treatment History of Present Illness 44-year-old female, premenopausal at presentation following an abnormal screening mammogram. June 25, 2022 mammogram: 1.9 cm irregular focal asymmetry in the right breast and a second 0.9 cm focal asymmetry at 5:00. June 25, 2022 right breast and axilla ultrasound: 1.9 cm in maximum diameter irregular solid mass in the right breast at 5:00 posterior depth highly suggestive of malignancy in addition to a 1 cm lesion at 5:00 in the retroareolar region. No significant abnormalities were seen in the right axilla. July 01, 2022: A. Right breast at 5 o???clock, 3 cm, biopsy: Mild fibrocystic change. No evidence of malignancy. B. Right breast at 5 o???clock, 7 cm, biopsy: Invasive ductal carcinoma with the follow characteristics: Nuclear grade - 2-3 Maximal length - 10 millimeters ANTIBODY / CLONE RESULT Block B P53 (DO-7) positive, 80% Ki-67 (30-9) positive, 90% CK8 ([id number]) positive CK5-6 (D5 1684) negative Calponin-1 (RE220T) negative P40 (BC28) negative E-Cad (ECH-6) positive SULLIVAN-2 (SP21) positive MORPHOMETRIC ANALYSIS ER (clone 6F11) 65%, weak to moderate intensity AZ (clone 16/1E2) 45%, weak to moderate intensity Her-2Neu (clone CB11) 3+ December 25, 2022 right breast lumpectomy with sentinel lymph node biopsy: FROZEN SECTION DIAGNOSIS A. Right sentinel lymph nodes, biopsy: Two out of two lymph nodes, negative for metastatic carcinoma. SJ:sahra 12/25/2022 MICROSCOPIC DIAGNOSIS A. Right sentinel lymph nodes, biopsy: Two out of two lymph nodes, negative for metastatic carcinoma. See comment. B. Right breast mass, lumpectomy with needle localization: No evidence of residual carcinoma. Changes consistent with previous biopsy site. January 11, 2025 BNM/Bone Scan Whole Body (requested to address reports of persistent pain involving bilat forearms) IMPRESSION: 1. The increase in radiopharmaceutical concentration defined in the bilateral shoulders, the knees bilaterally, the fourth lumbar vertebra is most consistent with degenerative arthritis. 2. There is no definitive typical scintigraphic evidence of skeletal metastatic disease Treatment summary and response: * Neoadjuvant TCHP August 04, 2022???November 17, 2022 (6 cycles): Complete pathologic remission * Herceptin maintenance December 2022???August 2023 (concluded at 1 year) * Tamoxifen February 2023-July 2024; stopped because of joint pains, nonetheless the joint pains did not resolve after she stopped treatment * Adjuvant radiation therapy to the right breast consisting of 4000 cGy delivered to the entire breast and 4800 cGy delivered to the lumpectomy cavity all in 15 fractions with a simultaneous integrated boost technique. She was treated using a 3D conformal treatment plan with 10 MV photons. Date of First Treatment: 02/09/2023 Date of Last Treatment: 03/02/2023 [facility] Medical History History of breast cancer Chronic kidney disease History of renal disease Bone pain Screening for osteoporosis Visit for pelvic exam Well adult exam History of Clostridium difficile infection History of echocardiogram C. difficile diarrhea Hypokalemia Left ankle pain Anemia Encounter for chemotherapy management Encounter for monitoring cardiotoxic drug therapy Wears glasses Cancer Anxiety Insulin dependent diabetes mellitus Back pain Dietary restriction Former smoker Shortness of breath on exertion Hx of tear of ACL (anterior cruciate ligament) Liver hemangioma Encounter for insertion of venous access port Abnormal MRI Encounter for education CINV (chemotherapy-induced nausea and vomiting) Invasive ductal carcinoma of right breast Migraines Adopted Cleft lip Herpes simplex Hypercholesterolemia Surgical History Hx of hysterectomy S/P CECILE-BSO History of lumpectomy of right breast Status post right breast lumpectomy Hx of surgical procedure Hx of nasal septoplasty Hx of tonsillectomy Cleft palate and cleft lip Family History Other Adopted Social History Smoking Status: Former smoker second hand exposure: No alcohol intake: never substance use type: does not use additional social history: Boyfriend-Bhupendra TSANG Constitutional Constitutional: Reports systems review (more content not included)... Normal [facility] Platelet countOrdered By: Dylan Wang on 12-29-2024 Platelets (Bld) [#/Vol] 238 10*3/uL 150-450 [facility] Potassium measurement (mass/ volume)Ordered By: Arelis Wang on 12-29-2024 Potassium (Unsp spec) [Mass/Vol] 4.4 mmol/L 3.3-5.1 [facility] RBC Auto (Bld) [#/Vol]Ordere d By: Arelis Wang on 12-29-2024 RBC (Bld) [#/Vol] 4.37 10*6/uL 4.2-5.[address] [facility] Serum creatinine measurement (mass/volume)Ordered By: Arelis Wang on 12-29-2024 Creatinine [Mass/Vol] 0.74 mg/dL 0.70-1.20 [facility] Serum globulin measurementOr dered By: Arelis Wang on 12-29-2024 Globulin (S) [Mass/Vol] 2.2 g/dL 2.2-4.2 [facility] Serum glucose measurement (m ass/volume)Ordered By: Arelis Wang on 12-29-2024 Glucose [Mass/Vol] 144 mg/dL High 70-99 [facility] Serum or plasma alanine matute otransferase (ALT) measurementOrdered By: Arelis Wang on 12-29-2024 ALT [Catalytic activity/Vol] 42 U/L High <35 [facility] Serum or plasma albumin tressa urement (mass/volume)Ordered By: Arelis Wang on 12-29-2024 Albumin [Mass/Vol] 4.6 g/dL 3.5-5.0 [facility] Serum or plasma albumin/glob ulin mass ratioOrdered By: Arelis Wang on 12-29-2024 Albumin/Globulin [Mass ratio] 2.1 {ratio} 0.9-2.4 [facility] Serum or plasma alkaline loreto sphatase measurementOrdered By: Arelis Wang on 12-29-2024 ALP [Catalytic activity/Vol] 60 U/L 35-104 [facility] Serum or plasma calcium tressa urement (mass/volume)Ordered By: Arelis Wang on 12-29-2024 Calcium [Mass/Vol] 9.3 mg/dL 7.6-11.0 [facility] Serum or plasma urea nitroge n measurement (mass/volume)Ordered By: Arelis Wang on 12-29-2024 Urea nitrogen [Mass/Vol] 20 mg/dL High 4-19 [facility] Sodium levelOrdered By: Arelis Wang on 12-29-2024 Sodium [Moles/Vol] 139 mmol/L 133-145 [facility] Total proteinOrdered By: Cassy Wang on 12-29-2024 Protein [Mass/Vol] 6.8 g/dL 5.9-8.4 [facility] White blood cell (WBC) count Ordered By: Arelis Wang on 12-29-2024 WBC (Bld) [#/Vol] 5.3 10*3/uL 4.4-11.0 [facility] Surgery Visit Reporton 12-23 Surgery Visit Report [facility] [address] [place] [address] [address] [place] [address] OFFICE VISIT Date of Service: 12/23/24 MR#: [id number] Acct: [id number] Name: ISABELLE NAGY THOMAS Rep #: [id number] : 1980 Provider: Dr. Mary Jo baez MD Age/Sex: 44/F Location: [facility] Status: Signed Intake Vital Signs 12/05/24 15:49 12/23/24 08:26 Height 5 ft 3 in 5 ft 3 in Weight: 138 lb BMI 24.4 BP 102/69 Blood Pressure Location Rt brachial Position Sitting Respiration 17 Pulse 86 Pulse Source Monitor Pulse Oximetry (%) 100 Oxygen Delivery Method room air Intake Visit Reasons: SELF REFERRED- DIARRHEA MULTIPLE WEEKS Chief Complaint: self referred, diarrhea Is patient in pain?: No Allergies codeine Allergy (Severe, Verified 12/23/24 08:27) rash hydrocodone (From Vicodin) Allergy (Severe, Verified 12/23/24 08:27) rash Penicillins Allergy (Severe, Verified 12/23/24 08:27) rash propoxyphene (From Darvocet-N) Allergy (Severe, Verified 12/23/24 08:27) rash caffeine Adverse Reaction (Severe, Verified 12/23/24 08:27) migraine trazodone Adverse Reaction (Severe, Verified 12/23/24 08:27) made feel weird Medications ???Medication ???Instructions ???Recorded ???Confirmed ???Type multivitamin 1 tab PO DAILY 12/01/17 12/23/24 H istory sumatriptan succinate 100 mg tablet 100 mg PO PRN PRN MIGRAINES 04/2112/23/24 History blood sugar diagnostic (OneTouch #100 ea 06/12/23 12/23/24 Rx Ultra Test strips) pen needle, diabetic 29 gauge x #270 ea 06/12/23 12/23/24 Rx 1/2 (BD Ultra-Fine Original Pen Needle) benzonatate 200 mg capsule 200 mg PO TID PRN cough #60 caps 1 12/23/24 Rx calcium 600 mg (as 1 tab PO DAILY 01/26/24 12/23/24 H istory carbonate)-vitamin D3 5 mcg (200 unit) tablet atorvastatin 20 mg tablet 20 mg PO QDAY 06/06/24 12/23/24 Hi story loratadine 10 mg tablet (Claritin) 10 mg PO DAILY PRN 06/06/2411/29 History antiarthritic combination no.2 900 600 mg PO 06/22/24 12/23/24 Hist ory mg tablet (glucosamine-chondroitin) biotin 10,000 mcg capsule mcg PO 06/22/24 12/23/24 History insulin aspart U-100 100 unit/mL 100 unit subcut USEASDIRECTD 90 12/23/24 Rx (3 mL) subcutaneous pen (NovoFlowgram days #90 mL FlexPen U-100 Insulin aspart) triamcinolone acetonide 0.5 % 1 applic topical TID PRN 09/15/24 12/23/24 History topical cream glyburide 5 mg tablet 10 mg PO QDAY 12/05/24 12/23/24 Hi story topiramate 100 mg tablet 100 mg PO QDAY #90 tabs 12/05/24 0 12/23/24 Rx valacyclovir 1 gram tablet 1,000 mg PO TID PRN cod sore 7 11/2112/23/24 Rx days #21 tabs zolpidem 10 mg tablet 10 mg PO QHS insomnia #30 tabs 11/2112/23/24 Rx tirzepatide 15 mg/0.5 mL 15 mg (0.5 mL) subcut QWEEK #2 mL 12/19/24 12/23/24 Rx subcutaneous pen injector (Mounjaro) [facility] Medical History (Reviewed 12/06/24 @ 13:36 by Jose Loving OVER SHORT AND DAMAGE CLERK, OVER SHORT AND DAMAGE CLERK-C) History of breast cancer Chronic kidney disease History of renal disease Bone pain Screening for osteoporosis Visit for pelvic exam Well adult exam History of Clostridium difficile infection History of echocardiogram C. difficile diarrhea Hypokalemia Left ankle pain Anemia Encounter for chemotherapy management Encounter for monitoring cardiotoxic drug therapy Wears glasses Cancer Anxiety Insulin dependent diabetes mellitus Back pain Dietary restriction Former smoker Shortness of breath on exertion Hx of tear of ACL (anterior cruciate ligament) Liver hemangioma Encounter for insertion of venous access port Abnormal MRI Encounter for education CINV (chemotherapy-induced nausea and vomiting) Invasive ductal carcinoma of right breast Migraines Adopted Cleft lip Herpes simplex Hypercholesterolemia Surgical History Hx of hysterectomy S/P CECILE-BSO History of lumpectomy of right breast Status post right breast lumpectomy Hx of surgical procedure Hx of nasal septoplasty Hx of tonsillectomy Cleft palate and cleft lip Family History Other Adopted Social History Smoking Status: Former smoker second hand exposure: No alcohol intake: never substance use type: does not use additional social history: Boyfriend-Bhupendra HPI HPI HPI: 44-year-old female presents due to 4-week history of diarrhea. Patient states she will go typically between 1-3 times daily denies any blood. Patient denies any change with food.. Patient was previously having more normal bowel movements. Patient did have C. difficile diagnosed previously while she was getting chemotherapy in . Patient denies a (more content not included)... Normal [facility] Anion gap in Serum or Plasma Ordered By: Ulises Cole on 10-03-2024 Anion gap [Moles/Vol] 9 mmol/L 5-15 [facility] BUN/creatinine ratioOrdered By: Ulises Cole on 10-03-2024 Urea nitrogen/Creatinine [Mass ratio] 11.8 mg/mg 10-20 [facility] Bilirubin directOrdered By: Ulises Cole on 10-03-2024 Bilirubin.direct [Mass/Vol] 0.11 mg/dL 0.00-0.30 [facility] Bilirubin, Directon 10-04-19 25 Bilirubin.direct [Mass/Vol] 0.11 mg/dL Normal 0.00-0.30 [facility] Comment on above: Order Comment: SEND ALL TO Performed By: #### L 500.4050, L501.4700, L500.4100 ####[facility] [address] [place], [place], [address] Bilirubin, totalOrdered By: Ulises Cole on 10-03-2024 Bilirubin [Mass/Vol] 0.21 mg/dL 0.00-1.30 [facility] Calculated very low density lipoprotein (VLDL) cholesterol measurementOrdered By: Ulises Cole on 10-03-2024 Calculated very low density lipoprotein (VLDL) cholesterol measurement 33 mg/dL 5-40 [facility] Carbon dioxide, total [Moles /volume] in Central venous bloodOrdered By: Ulises Cole on 10-03-2024 CO2 [Moles/Vol] 26.3 mmol/L 21.0-32.0 [facility] Chloride assayOrdered By: Spencer Cole on 10-03-2024 Chloride [Moles/Vol] 107 mmol/L 98-108 [facility] Comprehensive Metabolic Prof ilon 10-03-2024 Albumin [Mass/Vol] 4.3 g/dL Normal 3.5-5.0 [facility] Comment on above: Order Comment: SEND ALL TO Performed By: #### L 500.4050, L501.4700, L500.4100 ####[facility] [address] [place], [address] Albumin/Globulin [Mass ratio] 2.0 {ratio} Normal 0.9-2.4 [facility] Comment on above: Order Comment: SEND ALL TO Performed By: #### L 500.4050, L501.4700, L500.4100 ####[facility] [address] [place], [address] ALK PHOS 55 U/L Normal 35-104 [facility] Comment on above: Order Comment: SEND ALL TO Performed By: #### L 500.4050, L501.4700, L500.4100 ####[facility] [address] [place], [address] ALT [Catalytic activity/Vol] 28 U/L Normal <=34 [facility] Comment on above: Order Comment: SEND ALL TO Performed By: #### L 500.4050, L501.4700, L500.4100 ####[facility] [address] [place], [address] AST [Catalytic activity/Vol] 26 U/L Normal <=31 [facility] Comment on above: Order Comment: SEND ALL TO Performed By: #### L 500.4050, L501.4700, L500.4100 ####[facility] [address] [place], [address] Bilirubin [Mass/Vol] 0.21 mg/dL Normal 0.00-1.30 [facility] Comment on above: Order Comment: SEND ALL TO Performed By: #### L 500.4050, L501.4700, L500.4100 ####[facility] [address] [place], [address] BUN/CRE 11.8 RATIO Normal 10-20 [facility] Comment on above: Order Comment: SEND ALL TO Performed By: #### L 500.4050, L501.4700, L500.4100 ####[facility] [address] [place], [address] Calcium [Mass/Vol] 9.6 mg/dL Normal 7.6-11.0 [facility] Comment on above: Order Comment: SEND ALL TO Performed By: #### L 500.4050, L501.4700, L500.4100 ####[facility] [address] [place], [address] Chloride [Moles/Vol] 107 mmol/L Normal 98-108 [facility] Comment on above: Order Comment: SEND ALL TO Performed By: #### L 500.4050, L501.4700, L500.4100 ####[facility] [address] [place], [address] CO2 [Moles/Vol] 26.3 mmol/L Normal 21.0-32.0 [facility] Comment on above: Order Comment: SEND ALL TO Performed By: #### L 500.4050, L501.4700, L500.4100 ####[facility] [address] [place], [address] Creatinine [Mass/Vol] 0.89 mg/dL Normal 0.70-1.20 [facility] Comment on above: Order Comment: SEND ALL TO Performed By: #### L 500.4050, L501.4700, L500.4100 ####[facility] [address] [place], [address] GAP 9 Normal 5-15 [facility] Comment on above: Order Comment: SEND ALL TO Performed By: #### L 500.4050, L501.4700, L500.4100 ####[facility] [address] [place], [address] GFR/1.73 sq M.predicted among non-blacks MDRD (S/P/Bld) [Vol rate/Area] 81 mL/min/{1.73_m2} Normal >60 [facility] Comment on above: Order Comment: SEND ALL TO Result Comment: mL/m in/1.73m2 CKD-EPI Creatinine Equation (2020) Performed By: #### L 500.4050, L501.4700, L500.4100 ####[facility] [address] [place], [address] Globulin (S) [Mass/Vol] 2.2 g/dL Normal 2.2-4.2 [facility] Comment on above: Order Comment: SEND ALL TO Performed By: #### L 500.4050, L501.4700, L500.4100 ####[facility] [address] [place], [address] Glucose [Mass/Vol] 133 mg/dL High 70-99 [facility] Comment on above: Order Comment: SEND ALL TO Performed By: #### L 500.4050, L501.4700, L500.4100 ####[facility] [address] [place], [address] Potassium [Moles/Vol] 4.1 mmol/L Normal 3.3-5.1 [facility] Comment on above: Order Comment: SEND ALL TO Performed By: #### L 500.4050, L501.4700, L500.4100 ####[facility] [address] [place], [address] Sodium [Moles/Vol] 143 mmol/L Normal 133-145 [facility] Comment on above: Order Comment: SEND ALL TO Performed By: #### L 500.4050, L501.4700, L500.4100 ####[facility] [address] [place], [address] T PROT 6.4 g/dL Normal 5.9-8.4 [facility] Comment on above: Order Comment: SEND ALL TO Performed By: #### L 500.4050, L501.4700, L500.4100 ####[facility] [address] [place], [address] Urea nitrogen [Mass/Vol] 11 mg/dL Normal 4-19 [facility] Comment on above: Order Comment: SEND ALL TO Performed By: #### L 500.4050, L501.4700, L500.4100 ####[facility] [address] [place], [address] Glomerular filtration rate ( GFR) estimation/1.73 sq m using serum, plasma, or whole bOrdered By: Ulises Cole on 10-03-2024 GFR/1.73 sq M.predicted among non-blacks MDRD (S/P/Bld) [Vol rate/Area] 81 mL/min/{1.73_m2} >60 [facility] Comment on above: mL/min/1.73m2 CKD-EP I Creatinine Equation (2020) LDL calc ser/plasOrdered By: Ulises Cole on 10-03-2024 Cholesterol in LDL [Mass/Vol] 38 mg/dL [facility] Comment on above: Czqkfdqhaj=796-096 m g/dL & Higher Ixvk=093 mg/dL or greater Laboratory - Chemistry and C hemistry - challengeOrdered By: Ulises Cole on 10-03-2024 AST [Catalytic activity/Vol] 26 U/L <32 [facility] Lipid Profileon 10-03-2024 CHOL:HDL 2.07 Normal [facility] Comment on above: Order Comment: SEND ALL TO Performed By: #### L 500.4050, L501.4700, L500.4100 ####[facility] [address] [place], [address] Cholesterol [Mass/Vol] 138 mg/dL Normal <=200 [facility] Comment on above: Order Comment: SEND ALL TO Result Comment: Chol esterol level, Desirable <200 mg/dL Borderline high cholesterol 200-239 mg/dL High cholesterol >=240 mg/dL Recommendations of the NCEP Adult Treatment Panel for the following risk-cutoff thresholds for the [place] population. Performed By: #### L 500.4050, L501.4700, L500.4100 ####[facility] [address] [place], [address] Cholesterol in HDL [Mass/Vol] 67 mg/dL Normal [facility] Comment on above: Order Comment: SEND ALL TO Result Comment: Laine onal Cholesterol Education Program (NCEP) guidelines: <40 mg/dL: Low HDL-cholesterol (major risk factor for CHD) >= 60 mg/dL: High HDL-cholesterol (negative risk factor for CHD) HDL-cholesterol is affected by a number of factors, e.g. smoking, exercise, hormones, sex and age. Performed By: #### L 500.4050, L501.4700, L500.4100 ####[facility] [address] [place], [address] Cholesterol in LDL [Mass/Vol] 38 mg/dL Normal [facility] Comment on above: Order Comment: SEND ALL TO Result Comment: Bord jjmutg=763-781 mg/dL Higher Zycx=874 mg/dL or greater Performed By: #### L 500.4050, L501.4700, L500.4100 ####[facility] [address] [place], [address] Cholesterol in VLDL [Mass/Vol] 33 mg/dL Normal 5-40 [facility] Comment on above: Order Comment: SEND ALL TO Performed By: #### L 500.4050, L501.4700, L500.4100 ####[facility] [address] [place] [place], [address] Triglyceride [Mass/Vol] 166 mg/dL Normal [facility] Comment on above: Order Comment: SEND ALL TO Result Comment: The drugs N-Acetylcysteine and Metamizole may falsely depress this assay. Normal range: <150 mg/dL Borderline High: 150-199 mg/dL High: 200-499 mg/dL Very High: >500 mg/dL Performed By: #### L 500.4050, L501.4700, L500.4100 ####[facility] [address] [place], [place], [id number] No Panel InformationOrdered By: Ulises Cole on 10-03-2024 26 U/L <32 [facility] Potassium measurement (mass/ volume)Ordered By: Ulises Cole on 10-03-2024 Potassium (Unsp spec) [Mass/Vol] 4.1 mmol/L 3.3-5.1 [facility] Screening total cholesterol/ high density lipoprotein (HDL) cholesterol ratioOrdered By: Ulises Cole on 10-03-2024 Cholesterol.total/Cami sterol in HDL [Mass ratio] 2.07 {ratio} [facility] Serum creatinine measurement (mass/volume)Ordered By: Ulises Cole on 10-03-2024 Creatinine [Mass/Vol] 0.89 mg/dL 0.70-1.20 [facility] Serum globulin measurementOr dered By: Ulises Cole on 10-03-2024 Globulin (S) [Mass/Vol] 2.2 g/dL 2.2-4.2 [facility] Serum glucose measurement (m ass/volume)Ordered By: Ulises Cole on 10-03-2024 Glucose [Mass/Vol] 133 mg/dL High 70-99 [facility] Serum or plasma alanine matute otransferase (ALT) measurementOrdered By: Ulises Cole on 10-03-2024 ALT [Catalytic activity/Vol] 28 U/L <35 [facility] Serum or plasma albumin tressa urement (mass/volume)Ordered By: Ulises Cole on 10-03-2024 Albumin [Mass/Vol] 4.3 g/dL 3.5-5.0 [facility] Serum or plasma albumin/glob ulin mass ratioOrdered By: Ulises Douglas on 10-03-2024 Albumin/Globulin [Mass ratio] 2.0 {ratio} 0.9-2.4 [facility] Serum or plasma alkaline loreto sphatase measurementOrdered By: Ulises Douglas on 10-03-2024 ALP [Catalytic activity/Vol] 55 U/L 35-104 [facility] Serum or plasma calcium tressa urement (mass/volume)Ordered By: Ulises Douglas on 10-03-2024 Calcium [Mass/Vol] 9.6 mg/dL 7.6-11.0 [facility] Serum or plasma cholesterol in HDL measurement (mass/volume)Ordered By: Ulises Cole on 10-03-2024 Cholesterol in HDL [Mass/Vol] 67 mg/dL >40 [facility] Comment on above: National Cholesterol Education Program (NCEP) guidelines:<40 mg/dL: Low HDL-cholesterol (major risk factor for CHD)>= 60 mg/dL: High HDL-cholesterol (negative risk factor for CHD)HDL-cholesterol is affected by a number of factors, e.g. smoking, exercise, hormones, sex and age. Serum or plasma cholesterol measurement (mass/volume)Ordered By: Ulises Cole on 10-03-2024 Cholesterol [Mass/Vol] 138 mg/dL <201 [facility] Comment on above: Cholesterol level, D esirable <200 mg/dLBorderline high cholesterol 200-239 mg/dLHigh cholesterol >=240 mg/dLRecommendations of the NCEP Adult Treatment Panel for the following risk-cutoff thresholds for the [place] population. Serum or plasma urea nitroge n measurement (mass/volume)Ordered By: Ulises Cole on 10-03-2024 Urea nitrogen [Mass/Vol] 11 mg/dL 4-19 [facility] Sodium levelOrdered By: Karen Cole on 10-03-2024 Sodium [Moles/Vol] 143 mmol/L 133-145 [facility] Total proteinOrdered By: Kitty Cole on 10-03-2024 Protein [Mass/Vol] 6.4 g/dL 5.9-8.4 [facility] Triglycerides measurementOrd ered By: Ulises Cole on 10-03-2024 Triglyceride [Mass/Vol] 166 mg/dL <199 [facility] Comment on above: The drugs N-Acetylcy steine and Metamizole may falsely depress this assay. Normal range: <150 mg/dLBorderline High: 150-199 mg/dLHigh: 200-499 mg/dLVery High: >500 mg/dL Vitamin D,25 Hydroxyon 10-03 Vitamin D 25-OH 30.0 ng/mL Normal 30-100 [facility] Comment on above: Result Comment: Viki min D Status Deficiency: <20 ng/mL (50nmol/L) Insufficiency: 20-30 ng/mL (50-75 nmol/L) Sufficiency: 30-100 ng/mL (75-250 nmol/L) Toxicity: >100 ng/mL (>250 nmol/L) Performed By: #### L 506.1001 #### [facility] [address] [place], [address] Endocrinology Visit Reporton 09-15-2024 Endocrinology Visit Report [facility] [address] [place] [address] OFFICE VISIT Date of Service: 09/15/24 MR#: [id number] Acct: [id number] Name: ISABELLE NAGY THOMAS Rep #: [id number] : 1980 Provider: ZAC celis Age/Sex: 44/F Location: [facility] Status: Signed Intake Vital Signs 06/22/24 08:18 09/15/24 10:00 09/15/24 13:42 Height 5 ft 3 in 5 ft 3 in 5 ft 3 in Weight: 143 lb 142 lb BMI 25.3 25.1 BP 95/65 101/70 Blood Pressure Location Lt brachial Lt brachial Position Sitting Sitting Respiration 16 Pulse 74 107 H Pulse Source Monitor Monitor Temp 98.3 F Pulse Oximetry (%) 99 97 Oxygen Delivery Method room air room air Intake Visit Reasons: 3 M FU Chief Complaint: f/u diabetes Is patient in pain?: No Allergies codeine Allergy (Severe, Verified 09/15/24 13:45) rash hydrocodone (From Vicodin) Allergy (Severe, Verified 09/15/24 13:45) rash Penicillins Allergy (Severe, Verified 09/15/24 13:45) rash propoxyphene (From Darvocet-N) Allergy (Severe, Verified 09/15/24 13:45) rash caffeine Adverse Reaction (Severe, Verified 09/15/24 13:45) migraine Medications ???Medication ???Instructions ???Recorded ???Confirmed ???Type multivitamin 1 tab PO DAILY 12/01/17 09/15/24 H istory sumatriptan succinate 100 mg tablet 100 mg PO PRN PRN MIGRAINES 04/2109/15/24 History blood sugar diagnostic (OneTouch #100 ea 06/12/23 09/02/24 Rx Ultra Test strips) pen needle, diabetic 29 gauge x #270 ea 06/12/23 09/02/24 Rx 1/2 (BD Ultra-Fine Original Pen Needle) valacyclovir 1 gram tablet 1,000 mg PO TID PRN cod sore 7 01/2009/15/24 Rx days #21 tabs benzonatate 200 mg capsule 200 mg PO TID PRN cough #60 caps 1 09/15/24 Rx calcium 600 mg (as 1 tab PO DAILY 01/26/24 09/15/24 H istory carbonate)-vitamin D3 5 mcg (200 unit) tablet atorvastatin 20 mg tablet 20 mg PO QDAY 06/06/24 09/15/24 Hi story glyburide 5 mg tablet 10 mg (2 x 5 mg) PO BID 90 days 09/15/24 Rx #360 tabs loratadine 10 mg tablet (Claritin) 10 mg PO DAILY PRN 06/06/2408/28 History antiarthritic combination no.2 900 600 mg PO 06/22/24 09/15/24 Hist ory mg tablet (glucosamine-chondroitin) biotin 10,000 mcg capsule mcg PO 06/22/24 09/15/24 History insulin aspart U-100 100 unit/mL 100 unit subcut USEASDIRECTD 90 09/15/24 Rx (3 mL) subcutaneous pen (Novolog days #90 mL FlexPen U-100 Insulin aspart) topiramate 100 mg tablet 100 mg PO QDAY 06/22/24 09/15/24 H istory Mounjaro 10 mg/0.5 mL subcutaneous 10 mg (0.5 mL) subcut QWEEK #2 m L 08/08/24 09/15/24 Rx pen injector (tirzepatide) triamcinolone acetonide 0.5 % 1 applic topical TID PRN 09/15/24 09/15/24 History topical cream zolpidem 10 mg tablet 10 mg PO QHS insomnia 09/15/24 History PFSH Medical History History of breast cancer Chronic kidney disease History of renal disease Bone pain Screening for osteoporosis Visit for pelvic exam Well adult exam History of Clostridium difficile infection History of echocardiogram C. difficile diarrhea Hypokalemia Left ankle pain Anemia Encounter for chemotherapy management Encounter for monitoring cardiotoxic drug therapy Wears glasses Cancer Anxiety Insulin dependent diabetes mellitus Back pain Dietary restriction Former smoker Shortness of breath on exertion Hx of tear of ACL (anterior cruciate ligament) Liver hemangioma Encounter for insertion of venous access port Abnormal MRI Encounter for education CINV (chemotherapy-induced nausea and vomiting) Invasive ductal carcinoma of right breast Migraines Adopted Cleft lip Herpes simplex Hypercholesterolemia Surgical History Hx of hysterectomy S/P CECILE-BSO History of lumpectomy of right breast Status post right breast lumpectomy Hx of surgical procedure Hx of nasal septoplasty Hx of tonsillectomy Cleft palate and cleft lip Family History Other Adopted Social History Smoking Status: Former smoker second hand exposure: No alcohol intake: never substance use type: does not use additional social history: Boyfriend-Bhupendra HPI HPI Chief Complaint: f/u diabetes Details: ISABELLE NAGY, is a 44 F who presents to the office today for evaluation and management of diabetes. A1C today is 6.6%, improved from 06/22/24 at 7.2%. SHe has lost 14 lbs since that time. She is pleased with her progress. She has made significant lifestyle and dietary modifications since her initial appt. (more content not included)... Normal [facility] - Hematology and Cell countsOrdered By: Willyradha Guardado on 09-15-2024 HbA1c (Bld) [Mass fraction] 6.6 % High 4.2-6.3 [facility] No Panel InformationOrdered By: Willy Guardado on 09-15-2024 6.6 % High 4.2-6.3 [facility] Oncology Visit Reporton 08-28 Oncology Visit Report [facility] [place] [facility] [address] [place] [address] OFFICE VISIT Date of Service: 09/15/24 1000 MR#: [id number] Acct: [id number] Name: ISABELLE NAGY Rep #: [id number] : 1980 From: Arelis Wang NP OVER SHORT AND DAMAGE CLERK -C Age/Sex: 44/F Location: [facility] [place] Status: Signed HPI Subjective Date of Service 09/15/24 Chief Complaint breast cancer on treatment History of Present Illness 44-year-old female, premenopausal at presentation following an abnormal screening mammogram. June 25, 2022 mammogram: 1.9 cm irregular focal asymmetry in the right breast and a second 0.9 cm focal asymmetry at 5:00. June 25, 2022 right breast and axilla ultrasound: 1.9 cm in maximum diameter irregular solid mass in the right breast at 5:00 posterior depth highly suggestive of malignancy in addition to a 1 cm lesion at 5:00 in the retroareolar region. No significant abnormalities were seen in the right axilla. July 01, 2022: A. Right breast at 5 o???clock, 3 cm, biopsy: Mild fibrocystic change. No evidence of malignancy. B. Right breast at 5 o???clock, 7 cm, biopsy: Invasive ductal carcinoma with the follow characteristics: Nuclear grade - 2-3 Maximal length - 10 millimeters ANTIBODY / CLONE RESULT Block B P53 (DO-7) positive, 80% Ki-67 (30-9) positive, 90% CK8 (10reoaV15) positive CK5-6 (D5 1684) negative Calponin-1 (YU113C) negative P40 (BC28) negative E-Cad (ECH-6) positive SULLIVAN-2 (SP21) positive MORPHOMETRIC ANALYSIS ER (clone 6F11) 65%, weak to moderate intensity [place] (clone 16/1E2) 45%, weak to moderate intensity Her-2Neu (clone CB11) 3+ December 25, 2022 right breast lumpectomy with sentinel lymph node biopsy: FROZEN SECTION DIAGNOSIS A. Right sentinel lymph nodes, biopsy: Two out of two lymph nodes, negative for metastatic carcinoma. SJ:sahra 12/25/2022 MICROSCOPIC DIAGNOSIS A. Right sentinel lymph nodes, biopsy: Two out of two lymph nodes, negative for metastatic carcinoma. See comment. B. Right breast mass, lumpectomy with needle localization: No evidence of residual carcinoma. Changes consistent with previous biopsy site. January 11, 2025 BNM/Bone Scan Whole Body (requested to address reports of persistent pain involving bilat forearms) IMPRESSION: 1. The increase in radiopharmaceutical concentration defined in the bilateral shoulders, the knees bilaterally, the fourth lumbar vertebra is most consistent with degenerative arthritis. 2. There is no definitive typical scintigraphic evidence of skeletal metastatic disease Treatment summary and response: * Neoadjuvant TCHP August 04, 2022???November 17, 2022 (6 cycles): Complete pathologic remission * Herceptin maintenance December 2022???August 2023 (concluded at 1 year) * Tamoxifen February 2023-July 2024 * Adjuvant radiation therapy to the right breast consisting of 4000 cGy delivered to the entire breast and 4800 cGy delivered to the lumpectomy cavity all in 15 fractions with a simultaneous integrated boost technique. She was treated using a 3D conformal treatment plan with 10 MV photons. Date of First Treatment: 02/09/2023 Date of Last Treatment: 03/02/2023 Interval History The patient is presenting to clinic for a routine 3 month follow up. Stopped tamoxifen on August 06, 2024 per self d/t bone/joint pain, teeth pain. States side effects were limiting all of her daily activities. She is aware this is AMA but states I need to be able to live. Reports she is now able to go to the gym 5 times/week, lifting weights and walking 3 miles per day. Concerns today include new skin lesion right posterior thigh. Noted 2 months ago, has not changed in size or color. Non pruritic not painful. Denies any other skin changes. Otherwise denies dizziness, headaches, CP, palpitations, coughing, SOB, abd pain, N/V, changes in her bowel habits, swelling/pain of her extremities. [facility] Medical History History of breast cancer Chronic kidney disease History of renal disease Bone pain Screening for osteoporosis Visit for pelvic exam Well adult exam History of Clostridium difficile infection History of echocardiogram C. difficile diarrhea Hypokalemia Left ankle pain Anemia Encounter for chemotherapy management Encounter for monitoring cardiotoxic drug therapy Wears glasses Cancer Anxiety Insulin dependent diabetes mellitus Back pain Dietary restriction Former smoker Shortness of breath on exertion Hx of tear of ACL (anterior cruciate ligament) Liver hemangioma Encounter for insertion of venous access port Abnormal MRI Encounter for education CINV (chemotherapy-induced nausea and vomiting) Invasive ductal carcinoma of right breast Migraines Adopted Cleft lip Herpes simplex Hypercholesterolemia Surgical History (Reviewed 0 (more content not included)... Normal [facility] Absolute lymphocyte countOrd ered By: Arelis Wang on 09-14-2024 Lymphocytes Auto (Unsp spec) [#/Vol] 2.56 10*3/uL 0.83-4.51 [facility] Absolute neutrophil countOrd ered By: Arelis Wang on 09-14-2024 Neutrophils (Bld) [#/Vol] 3.0 10*3/uL 2.0-7.7 [facility] Anion gap in Serum or Plasma Ordered By: Arelis Wang on 09-14-2024 Anion gap [Moles/Vol] 11 mmol/L 5-15 [facility] Automated lymphocyte count a s percentage of total leukocytesOrdered By: Arelis Wang on 09-14-2024 Lymphocytes/100 WBC Auto (Unsp spec) 41.5 % High 19-41 [facility] BUN/creatinine ratioOrdered By: Arelis Wang on 09-14-2024 Urea nitrogen/Creatinine [Mass ratio] 19.8 mg/mg 10-20 [facility] Basophil percentageOrdered B y: Arelis Wang on 09-14-2024 Basophils/100 WBC (Bld) 0.6 % 0-1 [facility] Bilirubin, totalOrdered By: Arelis Wang on 09-14-2024 Bilirubin [Mass/Vol] 0.19 mg/dL 0.00-1.30 [facility] CBC W/Diff, Automatedon 08-28 Absolute Lymph 2.56 X10 3/uL Normal 0.83-4.51 [facility] Comment on above: Performed By: #### L 500.4050, L100.0100 ####[facility] [address] [place], [address] Absolute Neut 3.0 X10 3/uL Normal 2.0-7.7 [facility] Comment on above: Performed By: #### L 500.4050, L100.0100 ####[facility] [address] [place], [address] Basophils/100 WBC (Bld) 0.6 % Normal 0-1 [facility] Comment on above: Performed By: #### L 500.4050, L100.0100 ####[facility] [address] [place], [address] Eosinophils/100 WBC (Bld) 1.5 % Normal 0-5 [facility] Comment on above: Performed By: #### L 500.4050, L100.0100 ####[facility] [address] [place], [address] Erythrocyte distribution width (RBC) [Ratio] 13.3 % Normal 11.6-14.6 [facility] Comment on above: Performed By: #### L 500.4050, L100.0100 ####[facility] [address] [place], [address] Hematocrit (Bld) [Volume fraction] 37.2 % Normal 37-47 [facility] Comment on above: Performed By: #### L 500.4050, L100.0100 ####[facility] [address] [place], [address] Hemoglobin (Bld) [Mass/Vol] 12.3 g/dL Normal 12.0-15.0 [facility] Comment on above: Performed By: #### L 500.4050, L100.0100 ####[facility] [address] [place], [address] IG% 0.300 Normal 0.0-0.9 [facility] Comment on above: Result Comment: IG% - Immature Granulocytes (promyelocytes, myelocytes and metamyelocytes) > 1% indicates that a LEFT SHIFT is Present. Performed By: #### L 500.4050, L100.0100 ####[facility] [address] [place], [address] Lymphocytes/100 WBC (Bld) 41.5 % High 19-41 [facility] Comment on above: Performed By: #### L 500.4050, L100.0100 ####[facility] [address] [place], [address] MCH (RBC) [Entitic mass] 29.0 pg Normal 27.0-32.0 [facility] Comment on above: Performed By: #### L 500.4050, L100.0100 ####[facility] [address] [place], [address] MCHC (RBC) [Mass/Vol] 33.1 g/dL Normal 32-36 [facility] Comment on above: Performed By: #### L 500.4050, L100.0100 ####[facility] [address] [place], [address] MCV (RBC) [Entitic vol] 87.7 fL Normal 81-99 [facility] Comment on above: Performed By: #### L 500.4050, L100.0100 ####[facility] [address] [place], [address] Monocytes/100 WBC (Bld) 7.8 % Normal 0-10 [facility] Comment on above: Performed By: #### L 500.4050, L100.0100 ####[facility] [address] [place], [address] Neutrophils/100 WBC (Bld) 48.3 % Normal 47-70 [facility] Comment on above: Performed By: #### L 500.4050, L100.0100 ####[facility] [address] [place], [address] Nucleated RBC (Bld) [#/Vol] 0 10*3/uL Normal 0-5 [facility] Comment on above: Performed By: #### L 500.4050, L100.0100 ####[facility] [address] [place], [address] Platelet mean volume (Bld) [Entitic vol] 8.4 fL Normal 6.2-12.0 [facility] Comment on above: Performed By: #### L 500.4050, L100.0100 ####[facility] [address] [place], [address] Platelets (Bld) [#/Vol] 247 10*3/uL Normal 150-450 [facility] Comment on above: Performed By: #### L 500.4050, L100.0100 ####[facility] [address] [place], [address] RBC (Bld) [#/Vol] 4.24 10*6/uL Normal 4.2-5.[address] [facility] Comment on above: Performed By: #### L 500.4050, L100.0100 ####[facility] [address] [place], [address] RDW SD 42.8 fl Normal 35.1-43.9 [facility] Comment on above: Performed By: #### L 500.4050, L100.0100 ####[facility] [address] [place], [address] WBC (Bld) [#/Vol] 6.2 10*3/uL Normal 4.4-11.0 [facility] Comment on above: Performed By: #### L 500.4050, L100.0100 ####[facility] [address] [place], [address] Carbon dioxide, total [Moles /volume] in Central venous bloodOrdered By: Arelis Felipe on 09-14-2024 CO2 [Moles/Vol] 24.9 mmol/L 21.0-32.0 [facility] Chloride assayOrdered By: Ty ra Wang on 09-14-2024 Chloride [Moles/Vol] 106 mmol/L 98-108 [facility] Comprehensive Metabolic Prof ilon 09-14-2024 Albumin [Mass/Vol] 4.5 g/dL Normal 3.5-5.0 [facility] Comment on above: Performed By: #### L 500.4050, L100.0100 ####[facility] [address] [place], [address] Albumin/Globulin [Mass ratio] 2.1 {ratio} Normal 0.9-2.4 [facility] Comment on above: Performed By: #### L 500.4050, L100.0100 ####[facility] [address] [place], [address] ALK PHOS 50 U/L Normal 35-104 [facility] Comment on above: Performed By: #### L 500.4050, L100.0100 ####[facility] [address] [place], [address] ALT [Catalytic activity/Vol] 23 U/L Normal <=34 [facility] Comment on above: Performed By: #### L 500.4050, L100.0100 ####[facility] [address] [place], [address] AST [Catalytic activity/Vol] 25 U/L Normal <=31 [facility] Comment on above: Performed By: #### L 500.4050, L100.0100 ####[facility] [address] [place], [address] Bilirubin [Mass/Vol] 0.19 mg/dL Normal 0.00-1.30 [facility] Comment on above: Performed By: #### L 500.4050, L100.0100 ####[facility] [address] [place], [address] BUN/CRE 19.8 RATIO Normal 10-20 [facility] Comment on above: Performed By: #### L 500.4050, L100.0100 ####[facility] [address] [place], [address] Calcium [Mass/Vol] 9.4 mg/dL Normal 7.6-11.0 [facility] Comment on above: Performed By: #### L 500.4050, L100.0100 ####[facility] [address] [place], [address] Chloride [Moles/Vol] 106 mmol/L Normal 98-108 [facility] Comment on above: Performed By: #### L 500.4050, L100.0100 ####[facility] [address] [place], [address] CO2 [Moles/Vol] 24.9 mmol/L Normal 21.0-32.0 [facility] Comment on above: Performed By: #### L 500.4050, L100.0100 ####[facility] [address] [place], [address] Creatinine [Mass/Vol] 0.76 mg/dL Normal 0.70-1.20 [facility] Comment on above: Performed By: #### L 500.4050, L100.0100 ####[facility] [address] [place], [address] ECRCL 88.61 ml/min Normal 50-250 [facility] Comment on above: Performed By: #### L 500.4050, L100.0100 ####[facility] [address] [place], [address] GAP 11 Normal 5-15 [facility] Comment on above: Performed By: #### L 500.4050, L100.0100 ####[facility] [address] [place], [address] GFR/1.73 sq M.predicted among non-blacks MDRD (S/P/Bld) [Vol rate/Area] 98 mL/min/{1.73_m2} Normal >60 [facility] Comment on above: Result Comment: mL/m in/1.73m2 CKD-EPI Creatinine Equation (2020) Performed By: #### L 500.4050, L100.0100 ####[facility] [address] [place], [address] Globulin (S) [Mass/Vol] 2.2 g/dL Normal 2.2-4.2 [facility] Comment on above: Performed By: #### L 500.4050, L100.0100 ####[facility] [address] [place], [address] Glucose [Mass/Vol] 40 mg/dL Invalid Interpretation Code 70-99 [facility] Comment on above: Result Comment: Crit ical Result(s) Called at: 1624 by:??WILLY MULLIGAN TO MAURIZIO Results read back by same. Performed By: #### L 500.4050, L100.0100 ####[facility] [address] [place], [address] Potassium [Moles/Vol] 4.0 mmol/L Normal 3.3-5.1 [facility] Comment on above: Performed By: #### L 500.4050, L100.0100 ####[facility] [address] [place], [address] Sodium [Moles/Vol] 142 mmol/L Normal 133-145 [facility] Comment on above: Performed By: #### L 500.4050, L100.0100 ####[facility] [address] [place], [address] T PROT 6.7 g/dL Normal 5.9-8.4 [facility] Comment on above: Performed By: #### L 500.4050, L100.0100 ####[facility] [address] [place], [address] Urea nitrogen [Mass/Vol] 15 mg/dL Normal 4-19 [facility] Comment on above: Performed By: #### L 500.4050, L100.0100 ####[facility] [address] [place], [address] Eosinophil percentageOrdered By: Arelis Wang on 09-14-2024 Eosinophils/100 WBC (Bld) 1.5 % 0-5 [facility] Erythrocyte distribution wid th ratioOrdered By: Arelis Wang on 09-14-2024 Erythrocyte distribution width (RBC) [Ratio] 13.3 % 11.6-14.6 [facility] Erythrocyte distribution wid th standard deviationOrdered By: Arelis Wang on 09-14-2024 Erythrocyte distribution width (RBC) [Ratio] 42.8 fl 35.1-43.9 [facility] Glomerular filtration rate ( GFR) estimation/1.73 sq m using serum, plasma, or whole bOrdered By: Arelis Wang on 09-14-2024 GFR/1.73 sq M.predicted among non-blacks MDRD (S/P/Bld) [Vol rate/Area] 98 mL/min/{1.73_m2} >60 [facility] Comment on above: mL/min/1.73m2 CKD-EP I Creatinine Equation (2020) Hematocrit Auto (Bld) [Volum e fraction]Ordered By: Arelis Wang on 09-14-2024 Hematocrit (Bld) [Volume fraction] 37.2 % 37-47 [facility] Hemoglobin measurementOrdere d By: Arelis Wang on 09-14-2024 Hemoglobin (Bld) [Mass/Vol] 12.3 g/dL 12.0-15.0 [facility] Immature granulocytes/100 WB C Auto (Bld)Ordered By: Arelis Wang on 09-14-2024 Immature granulocytes/100 WBC (Bld) 0.300 % 0.0-0.9 [facility] Comment on above: IG% - Immature Granu locytes (promyelocytes, myelocytes and metamyelocytes) > 1% indicates that a LEFT SHIFT is Present. Laboratory - Chemistry and C hemistry - challengeOrdered By: Arelis Wang on 09-14-2024 AST [Catalytic activity/Vol] 25 U/L <32 [facility] MCV (mean corpuscular volume ) determinationOrdered By: Arelis Wang on 09-14-2024 MCV (RBC) [Entitic vol] 87.7 fL 81-99 [facility] Mean corpuscular hemoglobin (MCH) determinationOrdered By: Arelis Wang on 09-14-2024 MCH (RBC) [Entitic mass] 29.0 pg 27.0-32.0 [facility] Mean corpuscular hemoglobin concentration (MCHC) determinationOrdered By: Arelis Wang on 09-14-2024 MCHC (RBC) [Mass/Vol] 33.1 g/dL 32-36 [facility] Mean platelet volume determi nationOrdered By: Arelis Wang on 09-14-2024 Platelet mean volume (Bld) [Entitic vol] 8.4 fL 6.2-12.0 [facility] Monocyte percentageOrdered B y: Arelis Wang on 09-14-2024 Monocytes/100 WBC (Bld) 7.8 % 0-10 [facility] Neutrophil percentageOrdered By: Arelis Wang on 09-14-2024 Neutrophils/100 WBC (Bld) 48.3 % 47-70 [facility] No Panel InformationOrdered By: Arelis Wang on 09-14-2024 25 U/L <32 [facility] Nucleated red blood cell per centageOrdered By: Arelis Wang on 09-14-2024 Nucleated RBC/100 WBC (Bld) [Ratio] 0 % 0-5 [facility] Platelet countOrdered By: Dylan Wang on 09-14-2024 Platelets (Bld) [#/Vol] 247 10*3/uL 150-450 [facility] Potassium measurement (mass/ volume)Ordered By: Arelis Wang on 09-14-2024 Potassium (Unsp spec) [Mass/Vol] 4.0 mmol/L 3.3-5.1 [facility] RBC Auto (Bld) [#/Vol]Ordere d By: Arelis Wang on 09-14-2024 RBC (Bld) [#/Vol] 4.24 10*6/uL 4.2-5.[address] [facility] Serum creatinine measurement (mass/volume)Ordered By: Arelis Wang on 09-14-2024 Creatinine [Mass/Vol] 0.76 mg/dL 0.70-1.20 [facility] Serum globulin measurementOr dered By: Arelis Wang on 09-14-2024 Globulin (S) [Mass/Vol] 2.2 g/dL 2.2-4.2 [facility] Serum glucose measurement (m ass/volume)Ordered By: Arelis Wang on 09-14-2024 Glucose [Mass/Vol] 40 mg/dL Critically low 70-99 [facility] Comment on above: Critical Result(s) C alled at: 1624 by: WILLY RODRIGUEZ Results read back by same. Serum or plasma alanine matute otransferase (ALT) measurementOrdered By: Arelis Wang on 09-14-2024 ALT [Catalytic activity/Vol] 23 U/L <35 [facility] Serum or plasma albumin tressa urement (mass/volume)Ordered By: Arelis Wang on 09-14-2024 Albumin [Mass/Vol] 4.5 g/dL 3.5-5.0 [facility] Serum or plasma albumin/glob ulin mass ratioOrdered By: Arelis Wang on 09-14-2024 Albumin/Globulin [Mass ratio] 2.1 {ratio} 0.9-2.4 [facility] Serum or plasma alkaline loreto sphatase measurementOrdered By: Arelis Wang on 09-14-2024 ALP [Catalytic activity/Vol] 50 U/L 35-104 [facility] Serum or plasma calcium tressa urement (mass/volume)Ordered By: Arelis Wang on 09-14-2024 Calcium [Mass/Vol] 9.4 mg/dL 7.6-11.0 [facility] Serum or plasma urea nitroge n measurement (mass/volume)Ordered By: Arelis Wang on 09-14-2024 Urea nitrogen [Mass/Vol] 15 mg/dL 4-19 [facility] Sodium levelOrdered By: Arelis Wang on 09-14-2024 Sodium [Moles/Vol] 142 mmol/L 133-145 [facility] Total proteinOrdered By: Cassy Wang on 09-14-2024 Protein [Mass/Vol] 6.7 g/dL 5.9-8.4 [facility] White blood cell (WBC) count Ordered By: Arelis Wang on 09-14-2024 WBC (Bld) [#/Vol] 6.2 10*3/uL 4.4-11.0 [facility] Breast imaging reportOrdered By: Eavngelina Altamirano on 07-11-2024 Study report [facility] Imaging Services [address] [place], [place] [address] SCRN MAMM (CAD)W/TWAN BILAT MR#: [id number] Acct: [id number] Name: ISABELLE NAGY RAN Rep #: [id number] : 1980 F 44 From: Bryant Altamirano DO PCP: ZAC Gallardo Status: REG CLI Study:SCRN MAMM (CAD)W/TWAN BILAT Date of Exa m: 07/11/24 Exam# [id number] Ordering Dr: Mariano Karimi DO EXAM: SCRN MAMM (CAD)W/TWAN BILAT DATE: 07/11/2024 CLINICAL HISTORY: F, Age 44 y/o , ANNUAL SCREENING, H/O BREAST CANCER BREAST CANCER RISK ASSESSMENT: Has not been calculated. TECHNIQUE: Bilateral screening digital breast tomosynthesis with 2D and 3D images. Computeraided detection. COMPARISON: Prior exam(s) dated 07/09/2023, 12/05/2022, and 07/15/2022. FINDINGS: TISSUE DENSITY: The breast tissue is heterogenously dense, which may obscure small masses. Bilateral Breast Mammographic Findings: There are no suspicious masses, suspicious cluster of microcalcifications, architectural distortion or secondary signs of malignancy identified in either breast. BI/SCRN MAMM (CAD)W/TWAN BILAT IMPRESSION: Right Breast: BIRADS 1 NEGATIVE. Left Breast: BIRADS 1 NEGATIVE. OVERALL FINAL ASSESSMENT: BIRADS 1 NEGATIVE RECOMMENDATION: Routine annual follow-up in 1 Year A letter with findings and recommendations will be mailed to the patient. Reading Location: [id number] CC: ZAC Loving; Dr. Mariano Karimi, ~ Emd Special Education Teacher: Signed [facility] SCRN MAMM (CAD)W/TWAN BILATo n 07-11-2024 SCRN MAMM (CAD)W/TWAN BILAT [facility] Imaging Services [address] [id number] SCRN MAMM (CAD)W/TWAN BILAT MR#: [id number] Acct: [id number] Name: ISABELLE NAGY THOMAS Rep #: [id number] : 1980 F 44 From: Evangelina Angulo PCP: ZAC Gallardo Status: REG CLI Study: SCRN MAMM (CAD)W/TWAN BILAT Date of Exam: 06/28 07/22 Exam# [id number] Ordering Dr: Mariano Karimi DO EXAM: SCRN MAMM (CAD)W/TWAN BILAT DATE: 07/11/2024 CLINICAL HISTORY: F, Age 44 y/o , ANNUAL SCREENING, H/O BREAST CANCER BREAST CANCER RISK ASSESSMENT: Has not been calculated. TECHNIQUE: Bilateral screening digital breast tomosynthesis with 2D and 3D images. Computer aided detection. COMPARISON: Prior exam(s) dated 07/09/2023, 12/05/2022, and 07/15/2022. FINDINGS: TISSUE DENSITY: The breast tissue is heterogenously dense, which may obscure small masses. Bilateral Breast Mammographic Findings: There are no suspicious masses, suspicious cluster of microcalcifications, architectural distortion or secondary signs of malignancy identified in either breast. BI/SCRN MAMM (CAD)W/TWAN BILAT IMPRESSION: Right Breast: BIRADS 1 NEGATIVE. Left Breast: BIRADS 1 NEGATIVE. OVERALL FINAL ASSESSMENT: BIRADS 1 NEGATIVE RECOMMENDATION: Routine annual follow-up in 1 Year A letter with findings and recommendations will be mailed to the patient. Reading Location: [id number] CC: ZAC Loving; Dr. Mariano Karimi DO Emd Special Education Teacher: Signed Normal [facility] 12 Lead EKGon 06-26-2024 12 Lead EKG [facility] Cardiovascular Services [address] [place] [address] 12 Lead EKG 06/26/24 1632 MR#: [id number] Acct: [id number] Name: ISABELLE NAGY Rep #: [id number] : 1980 44 From: Ulises Cole MD Attending Dr: Status: DEP ER Ordering Dr: Elvin Green DO Date: 06/26/24 Location: ED Sex: F PI Admitted: Test Reason : CP Blood Pressure : */* mmHG Vent. Rate : 79 BPM Atrial Rate : 79 BPM P-R Int : 148 ms QRS Dur : 80 ms QT Int : 382 ms P-R-T Axes : 26 37 -9 degrees QTcB Int : 438 ms Normal sinus rhythm Low voltage QRS Nonspecific T wave abnormality Abnormal ECG Confirmed by ULISES COLE MD ([id number]), state editor TAYLOR ALBERT ([id number]) on 06/28/2024 8:26:54 AM Referred By: TA/TL Confirmed By: ULISES COLE MD 06/28/24 0826 Date Ulises Cole MD CC: ZAC Loving; Dr. Elvin Green, DO Signed Normal [facility] Absolute lymphocyte countOrd ered By: Elvin Green on 06-26-2024 Lymphocytes Auto (Unsp spec) [#/Vol] 2.42 10*3/uL 0.83-4.51 [facility] Absolute neutrophil countOrd ered By: Elvin Green on 06-26-2024 Neutrophils (Bld) [#/Vol] 2.9 10*3/uL 2.0-7.7 [facility] Anion gap in Serum or Plasma Ordered By: Elvin Green on 06-26-2024 Anion gap [Moles/Vol] 13 mmol/L 5-15 [facility] Automated lymphocyte count a s percentage of total leukocytesOrdered By: Elvin Green on 06-26-2024 Lymphocytes/100 WBC Auto (Unsp spec) 40.6 % - [facility] BUN/creatinine ratioOrdered By: Elvin Green on 06-26-2024 Urea nitrogen/Creatinine [Mass ratio] 20.5 mg/mg High 10-20 [facility] Basic Metabolic Profile (BMP )on 06-26-2024 BUN/CRE 20.5 RATIO High 10- [facility] Comment on above: Performed By: #### L 500.2500, L100.0100, L501.4021, L300.8000 ####[facility] [address] [place], [address] Calcium [Mass/Vol] 9.5 mg/dL Normal 7.6-11.0 [facility] Comment on above: Performed By: #### L 500.2500, L100.0100, L501.4021, L300.8000 ####[facility] [address] [place], [address] Chloride [Moles/Vol] 105 mmol/L Normal 98-108 [facility] Comment on above: Performed By: #### L 500.2500, L100.0100, L501.4021, L300.8000 ####[facility] [address] [place], [address] CO2 [Moles/Vol] 22.2 mmol/L Normal 21.0-32.0 [facility] Comment on above: Performed By: #### L 500.2500, L100.0100, L501.4021, L300.8000 ####[facility] [address] [place], [address] Creatinine [Mass/Vol] 0.84 mg/dL Normal 0.70-1.20 [facility] Comment on above: Performed By: #### L 500.2500, L100.0100, L501.4021, L300.8000 ####[facility] [address] [place], [address] ECRCL 78.28 ml/min Normal 50-250 [facility] Comment on above: Performed By: #### L 500.2500, L100.0100, L501.4021, L300.8000 ####[facility] [address] [place], [address] GAP 13 Normal 5-15 [facility] Comment on above: Performed By: #### L 500.2500, L100.0100, L501.4021, L300.8000 ####[facility] [address] [place], [address] GFR/1.73 sq M.predicted among non-blacks MDRD (S/P/Bld) [Vol rate/Area] 86 mL/min/{1.73_m2} Normal >60 [facility] Comment on above: Result Comment: mL/m in/1.73m2 CKD-EPI Creatinine Equation (2020) Performed By: #### L 500.2500, L100.0100, L501.4021, L300.8000 ####[facility] [address] [place], [address] Glucose [Mass/Vol] 146 mg/dL High 70-99 [facility] Comment on above: Performed By: #### L 500.2500, L100.0100, L501.4021, L300.8000 ####[facility] [address] [place], [address] Potassium [Moles/Vol] 3.9 mmol/L Normal 3.3-5.1 [facility] Comment on above: Performed By: #### L 500.2500, L100.0100, L501.4021, L300.8000 ####[facility] [address] [place], [address] Sodium [Moles/Vol] 140 mmol/L Normal 133-145 [facility] Comment on above: Performed By: #### L 500.2500, L100.0100, L501.4021, L300.8000 ####[facility] [address] [place], [address] Urea nitrogen [Mass/Vol] 17 mg/dL Normal 4-19 [facility] Comment on above: Performed By: #### L 500.2500, L100.0100, L501.4021, L300.8000 ####[facility] [address] [place], [address] Basophil percentageOrdered B y: Elvin Green on 06-26-2024 Basophils/100 WBC (Bld) 0.7 % 0-1 [facility] CBC W/Diff, Automatedon - Absolute Lymph 2.42 X10 3/uL Normal 0.83-4.51 [facility] Comment on above: Performed By: #### L 500.2500, L100.0100, L501.4021, L300.8000 #### [facility] [address] [place], [address] Absolute Neut 2.9 X10 3/uL Normal 2.0-7.7 [facility] Comment on above: Performed By: #### L 500.2500, L100.0100, L501.4021, L300.8000 #### [facility] [address] [place], [address] Basophils/100 WBC (Bld) 0.7 % Normal 0-1 [facility] Comment on above: Performed By: #### L 500.2500, L100.0100, L501.4021, L300.8000 #### [facility] [address] [place], [address] Eosinophils/100 WBC (Bld) 1.7 % Normal 0-5 [facility] Comment on above: Performed By: #### L 500.2500, L100.0100, L501.4021, L300.8000 #### [facility] [address] [place], [address] Erythrocyte distribution width (RBC) [Ratio] 12.9 % Normal 11.6-14.6 [facility] Comment on above: Performed By: #### L 500.2500, L100.0100, L501.4021, L300.8000 #### [facility] [address] [place], [address] Hematocrit (Bld) [Volume fraction] 37.1 % Normal 37-47 [facility] Comment on above: Performed By: #### L 500.2500, L100.0100, L501.4021, L300.8000 #### [facility] [address] [place], [address] Hemoglobin (Bld) [Mass/Vol] 12.5 g/dL Normal 12.0-15.0 [facility] Comment on above: Performed By: #### L 500.2500, L100.0100, L501.4021, L300.8000 #### [facility] [address] [place], [address] IG% 0.200 Normal 0.0-0.9 [facility] Comment on above: Result Comment: IG% - Immature Granulocytes (promyelocytes, myelocytes and metamyelocytes) > 1% indicates that a LEFT SHIFT is Present. Performed By: #### L 500.2500, L100.0100, L501.4021, L300.8000 #### [facility] [address] [place], [address] Lymphocytes/100 WBC (Bld) 40.6 % Normal 19-41 [facility] Comment on above: Performed By: #### L 500.2500, L100.0100, L501.4021, L300.8000 #### [facility] [address] [place], [address] MCH (RBC) [Entitic mass] 29.3 pg Normal 27.0-32.0 [facility] Comment on above: Performed By: #### L 500.2500, L100.0100, L501.4021, L300.8000 #### [facility] [address] [place], [address] MCHC (RBC) [Mass/Vol] 33.7 g/dL Normal 32-36 [facility] Comment on above: Performed By: #### L 500.2500, L100.0100, L501.4021, L300.8000 #### [facility] [address] [place], [address] MCV (RBC) [Entitic vol] 86.9 fL Normal 81-99 [facility] Comment on above: Performed By: #### L 500.2500, L100.0100, L501.4021, L300.8000 #### [facility] [address] [place], [address] Monocytes/100 WBC (Bld) 7.9 % Normal 0-10 [facility] Comment on above: Performed By: #### L 500.2500, L100.0100, L501.4021, L300.8000 #### [facility] [address] [place], [address] Neutrophils/100 WBC (Bld) 48.9 % Normal 47-70 [facility] Comment on above: Performed By: #### L 500.2500, L100.0100, L501.4021, L300.8000 #### [facility] [address] [place], [address] Nucleated RBC (Bld) [#/Vol] 0 10*3/uL Normal 0-5 [facility] Comment on above: Performed By: #### L 500.2500, L100.0100, L501.4021, L300.8000 #### [facility] [address] [place], [address] Platelet mean volume (Bld) [Entitic vol] 8.8 fL Normal 6.2-12.0 [facility] Comment on above: Performed By: #### L 500.2500, L100.0100, L501.4021, L300.8000 #### [facility] [address] [place], [address] Platelets (Bld) [#/Vol] 237 10*3/uL Normal 150-450 [facility] Comment on above: Performed By: #### L 500.2500, L100.0100, L501.4021, L300.8000 #### [facility] [address] [place], [address] RBC (Bld) [#/Vol] 4.27 10*6/uL Normal 4.2-5.[address] [facility] Comment on above: Performed By: #### L 500.2500, L100.0100, L501.4021, L300.8000 #### [facility] [address] [place], [address] RDW SD 41.0 fl Normal 35.1-43.9 [facility] Comment on above: Performed By: #### L 500.2500, L100.0100, L501.4021, L300.8000 #### [facility] [address] [place], [address] WBC (Bld) [#/Vol] 6.0 10*3/uL Normal 4.4-11.0 [facility] Comment on above: Performed By: #### L 500.2500, L100.0100, L501.4021, L300.8000 #### [facility] [address] [place], [address] CTA Chest W/WO Contraston CTA Chest W/WO Contrast [facility] Imaging Services [address] [place] [address] CTA Chest W/WO Contrast MR#: [id number] Acct: [id number] Name: ISABELLE NAGY Rep #: [id number] : 1980 F 44 From: Farhan Mcgee MD PCP: ZAC Gallardo Status: DEP ER Study: CTA Chest W/WO Contrast Date of Exam: 06/26/24 Exam# [id number] Ordering Dr: Elvin Green DO ADDENDUM by Dr. Farhan Mcgee MD on 07/25/24 at 1237 TECHNIQUE: Three (3) dimensional coronal and sagittal post processing imaging was also performed. Reading Location: [facility] 07/25/24 1237 Date cc: OVER SHORT AND DAMAGE CLERK-C Jose Loving; Dr. Elvin Green DO * Signed PROCEDURE: CTA CHEST W/WO CONTRAST 06/26/2024 REASON FOR EXAM: PAIN TECHNIQUE: Contiguous axial scans of 1.25 mm slice thicknesses. Sagittal and coronal reconstruction images were obtained. One or more dose reduction techniques were used (e.g., automated exposure control, adjustment of mA and/or kv according to patient size, use of iterative reconstruction technique). CONTRAST: Isovue 370 VOLUME: 100mL RADIATION DOSE SUMMARY: CTDlvol: 26.45 mGy DLP: 440.63 mGycm COMPARISON: PA and lateral chest dated 06/26/2024 FINDINGS: Hardware: Unremarkable Lymph nodes: No lymphadenopathy. Heart: Normal heart size. RV/LV Diameter Ratio: Normal. Thoracic Aorta: Normal. Pulmonary Vessels: No intraluminal filling defects. No dilatation centrally. Lungs and Airways: No consolidation or nodules. Pleura: No pleural effusions, pneumothorax, or thickening. Upper Abdomen: Unremarkable. Bones: Normal. CT/CTA Chest W/WO Contrast IMPRESSION: No evidence of pulmonary embolism or other significant abnormalities. Reading Location: [facility] CC: OVER SHORT AND DAMAGE CLERK-C Jose Loving; Dr. Elvin Green DO [employer] Special Education Teacher: Signed Normal [facility] Carbon dioxide, total [Moles /volume] in Central venous bloodOrdered By: Elvin Green on 06-26-2024 CO2 [Moles/Vol] 22.2 mmol/L 21.0-32.0 [facility] Chest PA and Lateralon 06-26 Chest PA and Lateral [facility] Imaging Services [address] [address] Chest PA and Lateral MR#: [id number] Acct: [id number] Name: ISABELLE NAGY Rep #: [id number] : 1980 F 44 From: Farhan Mcgee MD PCP: IVETH GallardoC Status: [facility] ER Study: Chest PA and Lateral Date of Exam: 06/26/24 Exam# [id number] Ordering Dr: Elvin Green DO PROCEDURE: CHEST PA AND LATERAL 06/26/2024 REASON FOR EXAM: PAIN CHEST PAIN RADIATING DOWN LEFT ARM. TECHNIQUE: Frontal and lateral views of the chest. COMPARISON: 07/31/2022. FINDINGS: Lungs: Lungs clear of pneumonia and congestion. Pleura: No pleural effusions, thickening, or pneumothorax. Heart: Normal in size and configuration. Mediastinum/Romelia: Unremarkable. Great vessels: Unremarkable. Bones/soft tissues: Unremarkable. Cardiac monitoring leads overlie the chest wall. RAD/Chest PA and Lateral IMPRESSION: No active cardiopulmonary disease. Reading Location: [facility] CC: OVER SHORT AND DAMAGE CLERK-C Jose Loving; Dr. 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 Performed By: #### L 500.2500, L100.0100, L501.4021, L300.8000 #### [facility] [address] [place], [address] D-dimer measurement for deep venous thrombosisOrdered By: Elvin Green on 06-26-2024 D-Dimer Quantitative (PE/DVT) 0.27 FEU/ug/m 0.27-0.49 [facility] Comment on above: NORMAL D-Dimer level (<0.50) indicates no DVT or PE. Emergency Department Summary on 06-26-2024 Emergency Department Summary [facility] Medical Records Department [address] [facility] [place] [address] Emergency Department Summary 06/26/24 MR#: [id number] Acct: [id number] Name: ISABELLE NAGY THOMAS Rep #: [id number] : 1980 44 From: Elvin Dennis PCP: ZAC Gallardo Status:REG ER Location: ED HPI History of Present Illness Chief Complaint: Chest Pain Informant: patient and spouse/S.O. Narrative Narrative: Continues pain left scapula goes across sharp in nature for the last 2 days. This morning left- sided sharp chest pain with pressure. States in the waiting room had shortness of breath nausea and lightheaded symptoms. No cardiac history. Hypertension hyperlipidemia history. No diabetes. Adopted therefore unclear on family history. No tobacco history. History of breast cancer in the past no current chemo. No history of PE or DVT. No recent travel or surgery. No recent cough. Prior Similar Symptoms: No CVD Risk Factors: Positive for Hypertension and Hypercholesterolemia; Negative for Diabetes or Smoking PE Risk Factors: Positive for Cancer; Negative for Recent Travel/Surgery, Recent Immobilization, Prior DVT or PE or OCP + Smoking + >/=35 PFSH PFSH Medical History History of breast cancer Chronic kidney disease History of renal disease Bone pain Screening for osteoporosis Visit for pelvic exam Well adult exam History of Clostridium difficile infection History of echocardiogram C. difficile diarrhea Hypokalemia Left ankle pain Anemia Encounter for chemotherapy management Encounter for monitoring cardiotoxic drug therapy Wears glasses Cancer Anxiety Insulin dependent diabetes mellitus Back pain Dietary restriction Former smoker Shortness of breath on exertion Hx of tear of ACL (anterior cruciate ligament) Liver hemangioma Encounter for insertion of venous access port Abnormal MRI Encounter for education CINV (chemotherapy-induced nausea and vomiting) Invasive ductal carcinoma of right breast Migraines Adopted Cleft lip Herpes simplex Hypercholesterolemia Home Medications ???Medication ???Instructions ???Recorded ???Last Taken ???Type multivitamin 1 tab PO DAILY 12/01/17 02/08/24 H istory sumatriptan succinate 100 mg tablet 100 mg PO PRN PRN MIGRAINES 04/21 Unknown History blood sugar diagnostic (OneTouch #100 ea 06/12/23 Unknown Rx Ultra Test strips) pen needle, diabetic 29 gauge x #270 ea 06/12/23 Unknown Rx 1/2 (BD Ultra-Fine Original Pen Needle) valacyclovir 1 gram tablet 1,000 mg PO TID PRN cod sore 7 01/20 Unknown Rx days #21 tabs benzonatate 200 mg capsule 200 mg PO TID PRN cough #60 caps 1 Unknown Rx calcium 600 mg (as 1 tab PO DAILY 01/26/24 02/08/24 H istory carbonate)-vitamin D3 5 mcg (200 unit) tablet atorvastatin 20 mg tablet 20 mg PO QDAY 06/06/24 Unknown His tory glyburide 5 mg tablet 10 mg (2 x 5 mg) PO BID 90 days Unknown Rx #360 tabs loratadine 10 mg tablet (Claritin) 10 mg PO DAILY PRN 06/06/24 Unkn own History tamoxifen 20 mg tablet 20 mg PO DAILY #90 TABLETS 5 Unknown Rx triamcinolone acetonide 0.5 % 1 applic topical TID #22 grams 01/21 Unknown Rx topical cream zolpidem 10 mg tablet 10 mg PO QHS PRN insomnia #30 tabs 06/06/24 Unknown Rx antiarthritic combination no.2 900 600 mg PO 06/22/24 Unknown Histo ry mg tablet (glucosamine-chondroitin) biotin 10,000 mcg capsule mcg PO 06/22/24 Unknown History insulin aspart U-100 100 unit/mL 100 unit subcut USEASDIRECTD 90 Unknown Rx (3 mL) subcutaneous pen (Novolog days #90 mL FlexPen U-100 Insulin aspart) tirzepatide 5 mg/0.5 mL 5 mg (0.5 mL) subcut QWEEK #2 mL 0 06/22/24 Unknown Rx subcutaneous pen injector (Mounjaro) topiramate 100 mg tablet 100 mg PO QDAY 06/22/24 Unknown Hi story Allergy/AdvReac Type Severity Reaction Status Date / Time codeine Allergy Severe rash Verified 06/26/24 16:28 hydrocodone (From Vicodin) Allergy Severe rash Verified 06/26/24 16:28 Penicillins Allergy Severe rash Verified 06/26/24 16:28 propoxyphene (From Allergy Severe rash Verified 06/26/24 16:28 Darvocet-N) caffeine AdvReac Severe migraine Verified 06/26/24 16:28 Family History Other Adopted Surgical History Hx of hysterectomy S/P CECILE-BSO History of lumpectomy of right breast Status post right breast lumpectomy Hx of surgical procedure Hx of nasal septoplasty Hx of tonsillectomy Cleft palate and cleft lip Social History Smoking Status: Former smoker second hand exposure: No alcohol intake: never substance use type: does not (more content not included)... Normal [facility] Eosinophil percentageOrdered By: Elvin Green on 06-26-2024 Eosinophils/100 WBC (Bld) 1.7 % 0-5 [facility] Erythrocyte distribution wid th ratioOrdered By: Elvin Green on 06-26-2024 Erythrocyte distribution width (RBC) [Ratio] 12.9 % 11.6-14.6 [facility] Erythrocyte distribution wid th standard deviationOrdered By: Elvin Green on 06-26-2024 Erythrocyte distribution width (RBC) [Entitic vol] 41.0 fL 35.1-43.9 [facility] Erythrocyte distribution width (RBC) [Ratio] 41.0 fl 35.1-43.9 [facility] Estimation of creatinine elaina aranceOrdered By: Elvin Green on 06-26-2024 Estimated Creatinine Clearance Calc 78.28 ml/min 50-250 [facility] GFR/1.73 sq M.predicted freddie g non-blacks MDRD (S/P/Bld) [Vol rate/Area]Ordered By: Elvin Green on 06-26-2024 Estimated GFR (MDRD) Non-Af Amer 86 >60 [facility] Comment on above: mL/min/1.73m2 CKD-EP I Creatinine Equation (2020) Glomerular filtration rate ( GFR) estimation/1.73 sq m using serum, plasma, or whole bOrdered By: Elvin Green on 06-26-2024 GFR/1.73 sq M.predicted among non-blacks MDRD (S/P/Bld) [Vol rate/Area] 86 mL/min/{1.73_m2} >60 [facility] Comment on above: mL/min/1.73m2 CKD-EP I Creatinine Equation (2020) Hematocrit Auto (Bld) [Volum e fraction]Ordered By: Elvin Green on 06-26-2024 Hematocrit (Bld) [Volume fraction] 37.1 % 37-47 [facility] Hemoglobin measurementOrdere d By: Elvin Green on 06-26-2024 Hemoglobin (Bld) [Mass/Vol] 12.5 g/dL 12.0-15.0 [facility] Immature granulocytes/100 WB C Auto (Bld)Ordered By: Elvin Green on 06-26-2024 Immature granulocytes/100 WBC (Bld) 0.200 % 0.0-0.9 [facility] Comment on above: IG% - Immature Granu locytes (promyelocytes, myelocytes and metamyelocytes) > 1% indicates that a LEFT SHIFT is Present. L499.0042on 06-26-2024 Trop T High Sen < 6 Normal <=14 [facility] Comment on above: Performed By: #### L 499.0042 #### [facility] [address] [place], [address] L499.0043on 06-26-2024 Trop T High Sen Normal <=14 [facility] Comment on above: Result Comment: Canc elled via OM: Order cancelled - Patient discharged Performed By: #### L 499.0043 #### [facility] [address] [place], [address] L501.4021on 06-26-2024 Trop T High Sen < 6 Normal <=14 [facility] Comment on above: Performed By: #### L 500.2500, L100.0100, L501.4021, L300.8000 ####[facility] [address] [place], [address] Lymphocytes Auto (Unsp spec) [#/Vol]Ordered By: Elvin Green on 06-26-2024 Lymphocytes (Bld) [#/Vol] 2.42 10*3/uL 0.83-4.51 [facility] Lymphocytes/100 WBC Auto (Un sp spec)Ordered By: Elvin Green on 06-26-2024 Lymphocytes/100 WBC (Bld) 40.6 % 19-41 [facility] MCV (mean corpuscular volume ) determinationOrdered By: Elvin Green on 06-26-2024 MCV (RBC) [Entitic vol] 86.9 fL 81-99 [facility] Mean corpuscular hemoglobin (MCH) determinationOrdered By: Elvin Green on 06-26-2024 MCH (RBC) [Entitic mass] 29.3 pg 27.0-32.0 [facility] Mean corpuscular hemoglobin concentration (MCHC) determinationOrdered By: Elvin Green on 06-26-2024 MCHC (RBC) [Mass/Vol] 33.7 g/dL 32-36 [facility] Mean platelet volume determi nationOrdered By: Elvin Green on 06-26-2024 Platelet mean volume (Bld) [Entitic vol] 8.8 fL 6.2-12.0 [facility] Monocyte percentageOrdered B y: Elvin Green on 06-26-2024 Monocytes/100 WBC (Bld) 7.9 % 0-10 [facility] Neutrophil percentageOrdered By: Elvin Green on 06-26-2024 Neutrophils/100 WBC (Bld) 48.9 % 47-70 [facility] No Panel InformationOrdered By: Elvin Green on 06-26-2024 Troponin T High Sensitivity < 6 ng/L <14 [facility] < 6 ng/L <14 [facility] Nucleated red blood cell per centageOrdered By: Elvin Green on 06-26-2024 Nucleated RBC/100 WBC (Bld) [Ratio] 0 % 0-5 [facility] Platelet countOrdered By: Sebastián Green on 06-26-2024 Platelets (Bld) [#/Vol] 237 10*3/uL 150-450 [facility] Potassium (Unsp spec) [Mass/ Vol]Ordered By: Elvin Green on 06-26-2024 Potassium [Moles/Vol] 3.9 mmol/L 3.3-5.1 [facility] Potassium measurement (mass/ volume)Ordered By: Elvin Green on 06-26-2024 Potassium (Unsp spec) [Mass/Vol] 3.9 mmol/L 3.3-5.1 [facility] RBC Auto (Bld) [#/Vol]Ordere d By: Elvin Green on 06-26-2024 RBC (Bld) [#/Vol] 4.27 10*6/uL 4.2-5.[address] [facility] Serum creatinine measurement (mass/volume)Ordered By: Elvin Green on 06-26-2024 Creatinine [Mass/Vol] 0.84 mg/dL 0.70-1.20 [facility] Serum glucose measurement (m ass/volume)Ordered By: Elvin Green on 06-26-2024 Glucose [Mass/Vol] 146 mg/dL High 70-99 [facility] Serum or plasma calcium tressa urement (mass/volume)Ordered By: Elvin Green on 03-30-2025 Calcium [Mass/Vol] 9.5 mg/dL 7.6-11.0 [facility] Serum or plasma urea nitroge n measurement (mass/volume)Ordered By: Elvin Green on 06-26-2024 Urea nitrogen [Mass/Vol] 17 mg/dL 4-19 [facility] Sodium levelOrdered By: Elvin Green on 06-26-2024 Sodium [Moles/Vol] 140 mmol/L 133-145 [facility] Troponin T.cardiac High sens itivity method [Mass/Vol]Ordered By: Elvin Green on 06-26-2024 Troponin T High Sensitivity 2 Hour < 6 ng/L <14 [facility] Troponin T.cardiac [Mass/vol ume] in Serum or Plasma by High sensitivity methodOrdered By: Elvin Green on 06-26-2024 Troponin T.cardiac High sensitivity method [Mass/Vol] < 6 ng/L <14 [facility] White blood cell (WBC) count Ordered By: Elvin Green on 06-26-2024 WBC (Bld) [#/Vol] 6.0 10*3/uL 4.4-11.0 [facility] Endocrinology Visit Reporton 06-22-2024 Endocrinology Visit Report [facility] [address] [place] [id number] OFFICE VISIT Date of Service: 06/22/24 MR#: [id number] Acct: [id number] Name: ISABELLE NAGY Rep #: [id number] : 1980 Provider: ZAC celis Age/Sex: 44/F Location: [facility] Status: Signed Intake Vital Signs 03/18/24 09:07 06/06/24 19:52 06/22/24 08:18 Height 5 ft 3 in 5 ft 3 in 5 ft 3 in Weight: 156 lb 6 oz BMI 27.6 BP 117/80 Blood Pressure Location Rt brachial Position Sitting Pulse 77 Pulse Source Monitor Pulse Oximetry (%) 97 Oxygen Delivery Method room air Intake Visit Reasons: Diabetes Chief Complaint: establish care- diabetes Allergies codeine Allergy (Severe, Verified 06/22/24 08:22) rash hydrocodone (From Vicodin) Allergy (Severe, Verified 06/22/24 08:22) rash Penicillins Allergy (Severe, Verified 06/22/24 08:22) rash propoxyphene (From Darvocet-N) Allergy (Severe, Verified 06/22/24 08:22) rash caffeine Adverse Reaction (Severe, Verified 06/22/24 08:22) migraine Medications ???Medication ???Instructions ???Recorded ???Confirmed ???Type multivitamin 1 tab PO DAILY 12/01/17 06/22/24 H istory sumatriptan succinate 100 mg tablet 100 mg PO PRN PRN MIGRAINES 04/2106/22/24 History blood sugar diagnostic (OneTouch #100 ea 06/12/23 05/16/24 Rx Ultra Test strips) pen needle, diabetic 29 gauge x #270 ea 06/12/23 05/16/24 Rx 1/2 (BD Ultra-Fine Original Pen Needle) valacyclovir 1 gram tablet 1,000 mg PO TID PRN cod sore 7 01/2006/22/24 Rx days #21 tabs benzonatate 200 mg capsule 200 mg PO TID PRN cough #60 caps 1 06/22/24 Rx calcium 600 mg (as 1 tab PO DAILY 01/26/24 06/22/24 H istory carbonate)-vitamin D3 5 mcg (200 unit) tablet atorvastatin 20 mg tablet 20 mg PO QDAY 06/06/24 06/22/24 Hi story glyburide 5 mg tablet 10 mg (2 x 5 mg) PO BID 90 days 06/22/24 Rx #360 tabs loratadine 10 mg tablet (Claritin) 10 mg PO DAILY PRN 06/06/2405/29 History tamoxifen 20 mg tablet 20 mg PO DAILY #90 TABLETS 5 06/22/24 Rx triamcinolone acetonide 0.5 % 1 applic topical TID #22 grams 01/2106/22/24 Rx topical cream zolpidem 10 mg tablet 10 mg PO QHS PRN insomnia #30 tabs 06/06/24 06/22/24 Rx antiarthritic combination no.2 900 600 mg PO 06/22/24 06/22/24 Hist ory mg tablet (glucosamine-chondroitin) biotin 10,000 mcg capsule mcg PO 06/22/24 06/22/24 History insulin aspart U-100 100 unit/mL 100 unit subcut USEASDIRECTD 90 06/22/24 Rx (3 mL) subcutaneous pen (Novolog days #90 mL FlexPen U-100 Insulin aspart) tirzepatide 5 mg/0.5 mL 5 mg (0.5 mL) subcut QWEEK #2 mL 0 06/22/24 06/22/24 Rx subcutaneous pen injector (Emilee) topiramate 100 mg tablet 100 mg PO QDAY 06/22/24 06/22/24 H istory [facility] Medical History History of breast cancer Chronic kidney disease History of renal disease Bone pain Screening for osteoporosis Visit for pelvic exam Well adult exam History of Clostridium difficile infection History of echocardiogram C. difficile diarrhea Hypokalemia Left ankle pain Anemia Encounter for chemotherapy management Encounter for monitoring cardiotoxic drug therapy Wears glasses Cancer Anxiety Insulin dependent diabetes mellitus Back pain Dietary restriction Former smoker Shortness of breath on exertion Hx of tear of ACL (anterior cruciate ligament) Liver hemangioma Encounter for insertion of venous access port Abnormal MRI Encounter for education CINV (chemotherapy-induced nausea and vomiting) Invasive ductal carcinoma of right breast Migraines Adopted Cleft lip Herpes simplex Hypercholesterolemia Surgical History Hx of hysterectomy S/P CECILE-BSO History of lumpectomy of right breast Status post right breast lumpectomy Hx of surgical procedure Hx of nasal septoplasty Hx of tonsillectomy Cleft palate and cleft lip Family History Other Adopted Social History Smoking Status: Former smoker second hand exposure: No alcohol intake: never substance use type: does not use additional social history: Boyfriend-Bhupendra [facility] HPI Chief Complaint: establish care- diabetes Details: ISABELLE NAGY, is a 44 F who presents to the office today for evaluation and management of diabetes. Referred to endocrinology by cardiology. Diagnosed in 2005 after having labs to assess swelling and joint pain to bilateral hands. She was placed on metformin at that time; however, she did not tolerate well and (more content not included)... 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 June 25, 2022 mammogram: 1.9 cm irregular focal asymmetry in the right breast and a second 0.9 cm focal asymmetry at 5:00. June 25, 2022 right breast and axilla ultrasound: 1.9 cm in maximum diameter irregular solid mass in the right breast at 5:00 posterior depth highly suggestive of malignancy in addition to a 1 cm lesion at 5:00 in the retroareolar region. No significant abnormalities were seen in the right axilla. July 01, 2022: A. Right breast at 5 o???clock, 3 cm, biopsy: Mild fibrocystic change. No evidence of malignancy. B. Right breast at 5 o???clock, 7 cm, biopsy: Invasive ductal carcinoma with the follow characteristics: Nuclear grade - 2-3 Maximal length - 10 millimeters ANTIBODY / CLONE RESULT Block B P53 (DO-7) positive, 80% Ki-67 (30-9) positive, 90% CK8 (11nixyC34) positive CK5-6 (D5 1684) negative Calponin-1 (VL133N) negative P40 (BC28) negative E-Cad (ECH-6) positive SULLIVAN-2 (SP21) positive MORPHOMETRIC ANALYSIS ER (clone 6F11) 65%, weak to moderate intensity AZ (clone 16/1E2) 45%, weak to moderate intensity Her-2Neu (clone CB11) 3+ December 25, 2022 right breast lumpectomy with sentinel lymph node biopsy: FROZEN SECTION DIAGNOSIS A. Right sentinel lymph nodes, biopsy: Two out of two lymph nodes, negative for metastatic carcinoma. SJ:sahra 12/25/2022 MICROSCOPIC DIAGNOSIS A. Right sentinel lymph nodes, biopsy: Two out of two lymph nodes, negative for metastatic carcinoma. See comment. B. Right breast mass, lumpectomy with needle localization: No evidence of residual carcinoma. Changes consistent with previous biopsy site. January 11, 2025 BNM/Bone Scan Whole Body (requested to address reports of persistent pain involving bilat forearms) IMPRESSION: 1. The increase in radiopharmaceutical concentration defined in the bilateral shoulders, the knees bilaterally, the fourth lumbar vertebra is most consistent with degenerative arthritis. 2. There is no definitive typical scintigraphic evidence of skeletal metastatic disease Treatment summary and response: * Neoadjuvant TCHP August 04, 2022???November 17, 2022 (6 cycles): Complete pathologic remission * Herceptin maintenance December 2022???August 2023 (concluded at 1 year) * Tamoxifen February 2023- * Adjuvant radiation therapy to the right breast consisting of 4000 cGy delivered to the entire breast and 4800 cGy delivered to the lumpectomy cavity all in 15 fractions with a simultaneous integrated boost technique. She was treated using a 3D conformal treatment plan with 10 MV photons. Date of First Treatment: 02/09/2023 Date of Last Treatment: 03/02/2023 Interval History The patient is presenting to clinic for a routine 3 month follow up. Confirms good adherence and tolerance to tamoxifen. Meets with radiation oncology on April 23- screening mammogram was ordered and scheduled at that visit. + hot flashes intermittently. + generalized joint stiffness/ache Otherwise denies dizziness, headaches, CP, palpitations, coughing, SOB, abd pain, N/V, changes in her bowel habits, swelling/pain of her extremities. [facility] Medical History Chronic kidney disease History of renal disease Bone pain Screening for osteoporosis Visit for pelvic exam Well adult exam History of Clostridium difficile infection History of echocardiogram C. difficile diarrhea Hypokalemia Left ankle pain Anemia Encounter for chemotherapy management Encounter for monitoring cardiotoxic drug therapy Wears glasses Cancer Anxiety Insulin dependent diabetes mellitus Back pain Dietary restriction Former smoker Shortness of breath on exertion Hx of tear of ACL (anterior cruciate ligament) Liver hemangioma Encounter for insertion of venous access port Abnormal MRI Encounter for education CINV (chemotherapy-induced nausea and vomiting) Invasive ductal carcinoma of right breast Migraines Adopted Cleft lip Herpes simplex Hypercholesterolemia Surgical History Hx of hysterectomy S/P CECILE-BSO History of lumpectomy of right breast Status post right breast lumpectomy Hx of surgical procedure Hx of nasal septoplasty Hx of tonsillectomy Cleft palate and cleft lip Family History (Reviewed (more content not included)... Normal [facility] Radiation Oncology Visiton 0 04-18-2024 Radiation Oncology Visit [facility] [address] [place] [address] OFFICE VISIT Date of Service: 04/18/24 1431 MR#: [id number] Acct: [id number] Name: CIRAROBBINISABELLE LUX THOMAS Rep #: [id number] : 1980 From: Mariano Karimi DO Age/Sex: 44/F Location: [facility] [place] Status: Signed Intake Vital Signs 12/03/23 08:29 03/18/24 09:07 04/18/24 14:32 Height 5 ft 3 in 5 ft 3 in 5 ft 3 in Weight: 160 lb 3 oz BMI 28.3 BP 108/72 Blood Pressure Location Lt brachial Position Sitting Respiration 16 Pulse 93 Pulse Source Monitor Temp 97.8 F Temperature Source Temporal Artery Pulse Oximetry (%) 95 Oxygen Delivery Method room air Intake Visit Reasons: 4 MONTH F/U BREAST Is patient in pain?: No Allergies codeine Allergy (Severe, Verified 04/18/24 14:34) rash hydrocodone (From Vicodin) Allergy (Severe, Verified 04/18/24 14:34) rash Penicillins Allergy (Severe, Verified 04/18/24 14:34) rash propoxyphene (From Darvocet-N) Allergy (Severe, Verified 04/18/24 14:34) rash caffeine Adverse Reaction (Severe, Verified 04/18/24 14:34) migraine Medications ???Medication ???Instructions ???Recorded ???Confirmed ???Type multivitamin 1 tab PO DAILY 12/01/17 04/18/24 History sumatriptan succinate 100 mg tablet 100 mg PO PRN PRN MIGRAINES 07/28/22 04/18/24 History loratadine 10 mg tablet (Claritin) 10 mg PO DAILY 12/16/22 04/18/24 History blood sugar diagnostic (OneTouch #100 ea 06/12/23 04/18/24 Rx Ultra Test strips) pen needle, diabetic 29 gauge x #270 ea 06/12/23 04/18/24 Rx 1/2 (BD Ultra-Fine Original Pen Needle) valacyclovir 1 gram tablet 1,000 mg PO TID PRN cod sore 7 09/07/23 04/18/24 Rx days #21 tabs zolpidem 10 mg tablet 10 mg PO QHS PRN insomnia #30 tabs 12/07/23 04/18/24 Rx benzonatate 200 mg capsule 200 mg PO TID PRN cough #60 caps 12/30/23 04/18/24 Rx insulin lispro 100 unit/mL 1 sliding scale dose subcut TID 01/12/24 04/18/24 Rx subcutaneous pen (Humalog KwikPen SLIDING SCALE 1-100 units a day 90 (U-100) Insulin) days #15 mL sitagliptin phosphate 50 mg tablet 50 mg PO DAILY #90 tabs 01/12/24 04/18/24 Rx (Januvia) calcium 600 mg (as 1 tab PO DAILY 01/26/24 04/18/24 History carbonate)-vitamin D3 5 mcg (200 unit) tablet glyburide 5 mg tablet 10 mg (2 x 5 mg) PO BID 90 days 02/12/24 04/18/24 Rx #360 tabs semaglutide 1 mg/dose (4 mg/3 mL) 1 mg (0.75 mL) subcut SA 30 days 02/12/24 04/18/24 Rx subcutaneous pen injector (Ozempic) #3.75 mL tamoxifen 20 mg tablet 20 mg PO DAILY #90 TABLETS 03/14/24 04/18/24 Rx atorvastatin 40 mg tablet 40 mg PO QHS #90 tabs 03/18/24 04/18/24 Rx dapagliflozin propanediol 10 mg 10 mg PO QDAY 03/18/24 04/18/24 History tablet (Farxiga) PFSH PFS Medical History Chronic kidney disease History of renal disease Bone pain Screening for osteoporosis Visit for pelvic exam Well adult exam History of Clostridium difficile infection History of echocardiogram C. difficile diarrhea Hypokalemia Left ankle pain Anemia Encounter for chemotherapy management Encounter for monitoring cardiotoxic drug therapy Wears glasses Cancer Anxiety Insulin dependent diabetes mellitus Back pain Dietary restriction Former smoker Shortness of breath on exertion Hx of tear of ACL (anterior cruciate ligament) Liver hemangioma Encounter for insertion of venous access port Abnormal MRI Encounter for education CINV (chemotherapy-induced nausea and vomiting) Invasive ductal carcinoma of right breast Migraines Adopted Cleft lip Herpes simplex Hypercholesterolemia Home Medications ???Medication ???Instructions ???Recorded ???Last Taken ???Type multivitamin 1 tab PO DAILY 12/01/17 02/08/24 History sumatriptan succinate 100 mg tablet 100 mg PO PRN PRN MIGRAINES 07/28/22 Unknown History loratadine 10 mg tablet (Claritin) 10 mg PO DAILY 12/16/22 Unknown History blood sugar diagnostic (OneTouch #100 ea 06/12/23 Unknown Rx Ultra Test strips) pen needle, diabetic 29 gauge x #270 ea 06/12/23 Unknown Rx 1/2 (BD Ultra-Fine Original Pen Needle) valacyclovir 1 gram tablet 1,000 mg PO TID PRN cod sore 7 09/07/23 Unknown Rx days #21 tabs zolpidem 10 mg tablet 10 mg PO QHS PRN insomnia #30 tabs 12/07/23 02/08/24 Rx benzonatate 200 mg capsule 200 mg PO TID PRN cough #60 caps 12/30/23 Unknown Rx insulin lispro 100 unit/mL 1 sliding scale dose subcut TID 01/12/24 02/08/24 Rx subcutaneous pen (Humalog KwikPen SLIDING SCALE 1-100 units a day 90 (U-100) Insulin) days #15 mL sitagliptin phosphate 50 mg tablet 50 mg PO DAILY #90 tabs 01/12/24 02/08/24 Rx (Januvia) calcium 600 mg (as 1 tab PO DAILY 01/26/24 02/08/24 History carbonate)-vitamin D3 5 mcg (200 (more content not included)... Normal [facility] Cardiology Visit Reporton Cardiology Visit Report [facility] [address] [place] [address] OFFICE VISIT Date of Service: 03/18/24 MR#: [id number] Acct: [id number] Name: ISABELLE NAGY Rep #: [id number] : 1980 Provider: Dr. Ulises Cole MD Age/Sex: 44/F Location: [facility] [place] Status: Signed HPI HPI History of Present Illness Details: Pleasant 44-year-old lady with a history of invasive ductal carcinoma of the right breast status post neoadjuvant TCHP from July to October and Herceptin maintenance therapy which was concluded in August 2023 and currently on tamoxifen. She also received radiation to the right breast consisting of 4000 cGy. She presents for an initial visit for restratification. She denies any chest pain or shortness of breath or paroxysmal nocturnal dyspnea or pedal edema she has had no neck arm or jaw discomfort suggest angina. She did see her primary care physician who detected a submental lymph adenopathy and was started on cephalexin and prednisone. Her previous echocardiograms have demonstrated preserved ejection fraction the last of which was in February 2024 estimating ejection fraction of 60% with no wall motion abnormalities noted in global longitudinal strain of -20.1. Her physical exam is unremarkable her EKG demonstrates sinus rhythm with a rate of 73 bpm. Intake Vital Signs 02/15/24 12:12 03/16/24 18:26 03/18/24 09:04 03/18/24 09:07 Height 5 ft 3 in 5 ft 3 in 5 ft 3 in Weight: 159 lb BP 125/81 H Blood Pressure Location Lt brachial Position Sitting Respiration 16 Pulse 87 Pulse Source NIBP Temp 98.2 F Temperature Source Temporal Artery Pulse Oximetry (%) 98 Oxygen Delivery Method room air Intake Visit Reasons: 1 Y FU Collar Worker Required: No Accompanied by: Self Is patient in pain?: No Allergies codeine Allergy (Severe, Verified 03/18/24 09:04) rash hydrocodone (From Vicodin) Allergy (Severe, Verified 03/18/24 09:04) rash Penicillins Allergy (Severe, Verified 03/18/24 09:04) rash propoxyphene (From Darvocet-N) Allergy (Severe, Verified 03/18/24 09:04) rash caffeine Adverse Reaction (Severe, Verified 03/18/24 09:04) migraine Medications ???Medication ???Instructions ???Recorded ???Confirmed ???Type multivitamin 1 tab PO DAILY 12/01/17 03/16/24 History sumatriptan succinate 100 mg tablet 100 mg PO PRN PRN MIGRAINES 07/28/22 03/16/24 History loratadine 10 mg tablet (Claritin) 10 mg PO DAILY 12/16/22 03/16/24 History blood sugar diagnostic (OneTouch #100 ea 06/12/23 03/16/24 Rx Ultra Test strips) pen needle, diabetic 29 gauge x #270 ea 06/12/23 03/16/24 Rx 1/2 (BD Ultra-Fine Original Pen Needle) valacyclovir 1 gram tablet 1,000 mg PO TID PRN cod sore 7 09/07/23 03/16/24 Rx days #21 tabs zolpidem 10 mg tablet 10 mg PO QHS PRN insomnia #30 tabs 12/07/23 03/16/24 Rx benzonatate 200 mg capsule 200 mg PO TID PRN cough #60 caps 12/30/23 03/16/24 Rx insulin lispro 100 unit/mL 1 sliding scale dose subcut TID 01/12/24 03/16/24 Rx subcutaneous pen (Humalog KwikPen SLIDING SCALE 1-100 units a day 90 (U-100) Insulin) days #15 mL sitagliptin phosphate 50 mg tablet 50 mg PO DAILY #90 tabs 01/12/24 03/16/24 Rx (Januvia) topiramate 100 mg tablet (Topamax) 100 mg PO QHS #90 tabs 01/12/24 03/16/24 Rx calcium 600 mg (as 1 tab PO DAILY 01/26/24 03/16/24 History carbonate)-vitamin D3 5 mcg (200 unit) tablet glyburide 5 mg tablet 10 mg (2 x 5 mg) PO BID 90 days 02/12/24 03/16/24 Rx #360 tabs semaglutide 1 mg/dose (4 mg/3 mL) 1 mg (0.75 mL) subcut SA 30 days 02/12/24 03/16/24 Rx subcutaneous pen injector (Ozempic) #3.75 mL tamoxifen 20 mg tablet 20 mg PO DAILY #90 TABLETS 03/14/24 03/16/24 Rx cephalexin 500 mg capsule 500 mg PO BID 10 days #20 caps 03/16/24 03/16/24 Rx prednisone 10 mg tablet 20 mg (2 x 10 mg) PO BID PRN 03/16/24 03/16/24 Rx submental lymph node 4 days #30 tabs atorvastatin 40 mg tablet 40 mg PO QHS #90 tabs 03/18/24 03/18/24 Rx dapagliflozin propanediol 10 mg 10 mg PO QDAY 03/18/24 03/18/24 History tablet (Farxiga) Have you fallen in the past year?: No [facility] Medical History History of renal disease Bone pain Screening for osteoporosis Visit for pelvic exam Well adult exam History of Clostridium difficile infection History of echocardiogram C. difficile diarrhea Hypokalemia Left ankle pain Anemia Encounter for chemotherapy management Encounter for monitoring cardiotoxic drug therapy Wears glasses Cancer Anxiety Insulin dependent diabetes mellitus Back pain Dietary restriction Former smoker Shortness of breath on exertion Hx of tear of ACL (anterior cruciate ligament) Liver hemangioma Encounter for insertion of venous access port (more content not included)... Normal [facility] Pressure Controller Office Visit Reporton 03-14-2024 Pressure Controller Office Visit Report [facility] [address], [address] [place] [address] OFFICE VISIT Date of Service: 03/14/24 MR#: [id number] Acct: [id number] Name: ISABELLE NAGY Rep #: [id number] : 1980 Provider: Dr. Reba Gallegos DO Age/Sex: 44/F Location: [facility] [place] Status: Signed Intake Vital Signs 10/08/23 08:17 02/09/24 09:31 02/29/24 09:11 03/14/24 08:40 03/14/24 08:41 Height 5 ft 3 in 5 ft 3 in 5 ft 3 in 5 ft 3 in 5 ft 3 in Weight: 159 lb BMI 28.1 BP 113/78 Intake Visit Reasons: 6 wk TRHBSO cysto Collar Worker Required: No Is patient in pain?: No Allergies codeine Allergy (Severe, Verified 03/14/24 08:40) rash hydrocodone (From Vicodin) Allergy (Severe, Verified 03/14/24 08:40) rash Penicillins Allergy (Severe, Verified 03/14/24 08:40) rash propoxyphene (From Darvocet-N) Allergy (Severe, Verified 03/14/24 08:40) rash caffeine Adverse Reaction (Severe, Verified 03/14/24 08:40) migraine Medications ???Medication ???Instructions ???Recorded ???Confirmed ???Type multivitamin 1 tab PO DAILY 12/01/17 03/14/24 History sumatriptan succinate 100 mg tablet 100 mg PO PRN PRN MIGRAINES 07/28/22 03/14/24 History loratadine 10 mg tablet (Claritin) 10 mg PO DAILY 12/16/22 03/14/24 History tamoxifen 20 mg tablet 20 mg PO DAILY #90 tabs 03/05/23 03/14/24 Rx blood sugar diagnostic (OneTouch #100 ea 06/12/23 03/14/24 Rx Ultra Test strips) pen needle, diabetic 29 gauge x #270 ea 06/12/23 03/14/24 Rx 1/2 (BD Ultra-Fine Original Pen Needle) valacyclovir 1 gram tablet 1,000 mg PO TID PRN cod sore 7 09/07/23 03/14/24 Rx days #21 tabs zolpidem 10 mg tablet 10 mg PO QHS PRN insomnia #30 tabs 12/07/23 03/14/24 Rx benzonatate 200 mg capsule 200 mg PO TID PRN cough #60 caps 12/30/23 03/14/24 Rx atorvastatin 20 mg tablet (Lipitor) 20 mg PO QHS #90 tabs 01/12/24 03/14/24 Rx fenofibrate nanocrystallized 145 145 mg PO DAILY #90 tabs 01/12/24 03/14/24 Rx mg tablet insulin lispro 100 unit/mL 1 sliding scale dose subcut TID 01/12/24 03/14/24 Rx subcutaneous pen (Humalog KwikPen SLIDING SCALE 1-100 units a day 90 (U-100) Insulin) days #15 mL sitagliptin phosphate 50 mg tablet 50 mg PO DAILY #90 tabs 01/12/24 03/14/24 Rx (Januvia) topiramate 100 mg tablet (Topamax) 100 mg PO QHS #90 tabs 01/12/24 03/14/24 Rx calcium 600 mg (as 1 tab PO DAILY 01/26/24 03/14/24 History carbonate)-vitamin D3 5 mcg (200 unit) tablet glyburide 5 mg tablet 10 mg (2 x 5 mg) PO BID 90 days 02/12/24 03/14/24 Rx #360 tabs semaglutide 1 mg/dose (4 mg/3 mL) 1 mg (0.75 mL) subcut SA 30 days 02/12/24 03/14/24 Rx subcutaneous pen injector (Ozempic) #3.75 mL Is last menstrual period known: No Post menopausal: No Patient : No PFSH Medical History (Updated 03/08/24 @ 13:41 by Taylor Albert) History of renal disease Bone pain Screening for osteoporosis Visit for pelvic exam Well adult exam History of Clostridium difficile infection History of echocardiogram C. difficile diarrhea Hypokalemia Left ankle pain Anemia Encounter for chemotherapy management Encounter for monitoring cardiotoxic drug therapy Wears glasses Cancer Anxiety Insulin dependent diabetes mellitus Back pain Dietary restriction Former smoker Shortness of breath on exertion Hx of tear of ACL (anterior cruciate ligament) Liver hemangioma Encounter for insertion of venous access port Abnormal MRI Encounter for education CINV (chemotherapy-induced nausea and vomiting) Invasive ductal carcinoma of right breast Migraines Adopted Cleft lip Herpes simplex Hypercholesterolemia Surgical History Hx of hysterectomy S/P CECILE-BSO History of lumpectomy of right breast Status post right breast lumpectomy Hx of surgical procedure Hx of nasal septoplasty Hx of tonsillectomy Cleft palate and cleft lip Family History (Updated 03/08/24 @ 13:43 by Taylor Albert) Other Adopted Social History Smoking Status: Former smoker how long ago did patient quit smoking: cut back on smoking, now vaping as well second hand exposure: No alcohol intake: never substance use type: does not use additional social history: Boyfriend-Bhupendra HPI 6 wk TRHBSO cysto Details: ISABELLE NAGY is a 44 year old who presents for 6 week post op hysterectomy. She states that she is feeling overall well, just tired. She wants to return to work on 03/23/24. She denies bleeding or cramping. She did find a submental lymph node and is worried about this. She states that this is not normal for her. History 0 Elective abortions Hx Para Spontaneous abortions Hx # Term Pregnancies Ec (more content not included)... Normal [facility] Absolute neutrophil countOrd ered By: Arelis Wang on 02-29-2024 Neutrophils (Bld) [#/Vol] 2.9 10*3/uL 2.0-7.7 [facility] Albumin to globulin ratioOrd ered By: Arelis Wang on 02-29-2024 Albumin/Globulin [Mass ratio] 1.3 {ratio} 0.9-2.4 [facility] Basophil percentageOrdered B y: Arelis Wang on 02-29-2024 Basophils/100 WBC (Bld) 0.9 % 0-1 [facility] Bilirubin, totalOrdered By: Arelis Wang on 02-29-2024 Bilirubin [Mass/Vol] 0.20 mg/dL 0.20-1.00 [facility] Comment on above: For patients on eltr ombopag therapy, use of Dimension [place] TBIL is not recommended. Blood urea nitrogen (BUN)/cr eatinine ratioOrdered By: Arelis Wang on 02-29-2024 Urea nitrogen/Creatinine [Mass ratio] 17.5 mg/mg 10-20 [facility] CBC W/Diff, Automatedon Absolute Neut Normal 2.0-7.7 [facility] Comment on above: Result Comment: PT H AD LABS DONE AT [facility] THIS AM UNDER [facility] V# DATED FOR TODAY. Performed By: #### L 500.4050, L100.0100 #### [facility] [address] [place], [address] HCT Normal 37-47 [facility] Comment on above: Result Comment: PT H AD LABS DONE AT [facility]. THIS AM UNDER [facility] V# DATED FOR TODAY. Performed By: #### L 500.4050, L100.0100 #### [facility] [address] [place], [address] HGB Normal 12.0-15.0 [facility] Comment on above: Result Comment: PT H AD LABS DONE AT [facility]. THIS AM UNDER [facility] V# DATED FOR TODAY. Performed By: #### L 500.4050, L100.0100 #### [facility] [address] [place], [address] MCH Normal 27.0-32.0 [facility] Comment on above: Result Comment: PT H AD LABS DONE AT [facility]. THIS AM UNDER [facility] V# DATED FOR TODAY. Performed By: #### L 500.4050, L100.0100 #### [facility] [address] [place], [address] MCHC Normal 32-36 [facility] Comment on above: Result Comment: PT H AD LABS DONE AT [facility]. THIS AM UNDER [facility] V# DATED FOR TODAY. Performed By: #### L 500.4050, L100.0100 #### [facility] [address] [place], [address] MCV Normal 81-99 [facility] Comment on above: Result Comment: PT H AD LABS DONE AT [facility]. THIS AM UNDER [facility] V# DATED FOR TODAY. Performed By: #### L 500.4050, L100.0100 #### [facility] [address] [place], [address] NEUT% Normal 47-70 [facility] Comment on above: Result Comment: PT H AD LABS DONE AT [facility]. THIS AM UNDER [facility] V# DATED FOR TODAY. Performed By: #### L 500.4050, L100.0100 #### [facility] [address] [place], [address] PLT Normal 150-450 [facility] Comment on above: Result Comment: PT H AD LABS DONE AT [facility]. THIS AM UNDER [facility] V# DATED FOR TODAY. Performed By: #### L 500.4050, L100.0100 #### [facility] [address] [place], [address] RBC Normal 4.2-5.4 [facility] Comment on above: Result Comment: PT H AD LABS DONE AT [facility]. THIS AM UNDER [facility] V# DATED FOR TODAY. Performed By: #### L 500.4050, L100.0100 #### [facility] [address] [place], [address] RDW CV Normal 11.6-14.6 [facility] Comment on above: Result Comment: PT H AD LABS DONE AT [facility]. THIS AM UNDER [facility] V# DATED FOR TODAY. Performed By: #### L 500.4050, L100.0100 #### [facility] [address] [place], [address] RDW SD Normal 35.1-43.9 [facility] Comment on above: Result Comment: PT H AD LABS DONE AT [facility]. THIS AM UNDER [facility] V# DATED FOR TODAY. Performed By: #### L 500.4050, L100.0100 #### [facility] [address] [place], [address] WBC Normal 4.4-11.0 [facility] Comment on above: Result Comment: PT H AD LABS DONE AT [facility]. THIS AM UNDER [facility] V# DATED FOR TODAY. Performed By: #### L 500.4050, L100.0100 #### [facility] [address] [place], [address] Absolute Lymph 1.79 X10 3/uL Normal 0.83-4.51 [facility] Comment on above: Performed By: #### L 500.4050, L100.0100 ####[facility] [address] [place], [address] Absolute Neut 2.9 X10 3/uL Normal 2.0-7.7 [facility] Comment on above: Performed By: #### L 500.4050, L100.0100 ####[facility] [address] [place], [address] Basophils/100 WBC (Bld) 0.9 % Normal 0-1 [facility] Comment on above: Performed By: #### L 500.4050, L100.0100 ####[facility] [address] [place], [address] Eosinophils/100 WBC (Bld) 5.6 % High 0-5 [facility] Comment on above: Performed By: #### L 500.4050, L100.0100 ####[facility] [address] [place], [address] Erythrocyte distribution width (RBC) [Ratio] 13.9 % Normal 11.6-14.6 [facility] Comment on above: Performed By: #### L 500.4050, L100.0100 ####[facility] [address] [place], [address] Hematocrit (Bld) [Volume fraction] 36.4 % Low 37-47 [facility] Comment on above: Performed By: #### L 500.4050, L100.0100 ####[facility] [address] [place], [address] Hemoglobin (Bld) [Mass/Vol] 11.6 g/dL Low 12.0-15.0 [facility] Comment on above: Performed By: #### L 500.4050, L100.0100 ####[facility] [address] [place], [address] IG% 0.200 Normal 0.0-0.9 [facility] Comment on above: Result Comment: IG% - Immature Granulocytes (promyelocytes, myelocytes and metamyelocytes) > 1% indicates that a LEFT SHIFT is Present. Performed By: #### L 500.4050, L100.0100 ####[facility] [address] [place], [address] Lymphocytes/100 WBC (Bld) 33.1 % Normal 19-41 [facility] Comment on above: Performed By: #### L 500.4050, L100.0100 ####[facility] [address] [place], [address] MCH (RBC) [Entitic mass] 28.7 pg Normal 27.0-32.0 [facility] Comment on above: Performed By: #### L 500.4050, L100.0100 ####[facility] [address] [place], [address] MCHC (RBC) [Mass/Vol] 31.9 g/dL Low 32-36 [facility] Comment on above: Performed By: #### L 500.4050, L100.0100 ####[facility] [address] [place], [address] MCV (RBC) [Entitic vol] 90.1 fL Normal 81-99 [facility] Comment on above: Performed By: #### L 500.4050, L100.0100 ####[facility] [address] [place], [address] Monocytes/100 WBC (Bld) 7.4 % Normal 0-10 [facility] Comment on above: Performed By: #### L 500.4050, L100.0100 ####[facility] [address] [place], [address] Neutrophils/100 WBC (Bld) 52.8 % Normal 47-70 [facility] Comment on above: Performed By: #### L 500.4050, L100.0100 ####[facility] [address] [place], [address] Nucleated RBC (Bld) [#/Vol] 0 10*3/uL Normal 0-5 [facility] Comment on above: Performed By: #### L 500.4050, L100.0100 ####[facility] [address] [place], [address] Platelet mean volume (Bld) [Entitic vol] 8.6 fL Normal 6.2-12.0 [facility] Comment on above: Performed By: #### L 500.4050, L100.0100 ####[facility] [address] [place], [address] Platelets (Bld) [#/Vol] 298 10*3/uL Normal 150-450 [facility] Comment on above: Performed By: #### L 500.4050, L100.0100 ####[facility] [address] [place], [address] RBC (Bld) [#/Vol] 4.04 10*6/uL Low 4.2-5.[address] [facility] Comment on above: Performed By: #### L 500.4050, L100.0100 ####[facility] [address] [place], [address] RDW SD 46.2 fl High 35.1-43.9 [facility] Comment on above: Performed By: #### L 500.4050, L100.0100 ####[facility] [address] [place], [address] WBC (Bld) [#/Vol] 5.4 10*3/uL Normal 4.4-11.0 [facility] Comment on above: Performed By: #### L 500.4050, L100.0100 ####[facility] [address] [place], [address] Carbon dioxide measurementOr dered By: Arelis Wang on 02-29-2024 CO2 [Moles/Vol] 25.0 mmol/L 21.0-32.0 [facility] Chloride measurementOrdered By: Arelis Wang on 02-29-2024 Chloride [Moles/Vol] 113 mmol/L High 98-107 [facility] Comprehensive Metabolic Prof ilon 02-29-2024 ALB Normal 3.2-5.0 [facility] Comment on above: Result Comment: PT H AD LABS DONE AT [facility] REG. THIS AM UNDER CVS V# DATED FOR TODAY. Performed By: #### L 500.4050, L100.0100 #### [facility] [address] [place], [address] ALK P Normal 45-117 [facility] Comment on above: Result Comment: PT H AD LABS DONE AT CENTRAL REG. THIS AM UNDER CVS V# DATED FOR TODAY. Performed By: #### L 500.4050, L100.0100 #### [facility] [address] [place], [address] ALT Normal 13-56 [facility] Comment on above: Result Comment: PT H AD LABS DONE AT CENTRAL REG. THIS AM UNDER CVS V# DATED FOR TODAY. Performed By: #### L 500.4050, L100.0100 #### [facility] [address] [place], [address] AST Normal 15-37 [facility] Comment on above: Result Comment: PT H AD LABS DONE AT C[facility]TRAL REG. THIS AM UNDER CVS V# DATED FOR TODAY. Performed By: #### L 500.4050, L100.0100 #### [facility] [address] [place], [address] BUN Normal 7-18 [facility] Comment on above: Result Comment: PT H AD LABS DONE AT CENTRAL REG. THIS AM UNDER CVS V# DATED FOR TODAY. Performed By: #### L 500.4050, L100.0100 #### [facility] [address] [place], [address] BUN/CRE Normal 10-20 [facility] Comment on above: Result Comment: PT H AD LABS DONE AT CENTRAL REG. THIS AM UNDER CVS V# DATED FOR TODAY. Performed By: #### L 500.4050, L100.0100 #### [facility] [address] [place], [address] CA,Total Normal 8.5-10.1 [facility] Comment on above: Result Comment: PT H AD LABS DONE AT C[facility]TRAL REG. THIS AM UNDER CVS V# DATED FOR TODAY. Performed By: #### L 500.4050, L100.0100 #### [facility] [address] [place], [address] CL Normal 98-107 [facility] Comment on above: Result Comment: PT H AD LABS DONE AT CENTRAL REG. THIS AM UNDER CVS V# DATED FOR TODAY. Performed By: #### L 500.4050, L100.0100 #### [facility] [address] [place], [address] CO2 Normal 21.0-32.0 [facility] Comment on above: Result Comment: PT H AD LABS DONE AT CENTRAL REG. THIS AM UNDER CVS V# DATED FOR TODAY. Performed By: #### L 500.4050, L100.0100 #### [facility] [address] [place], [address] CREAT,SERUM Normal 0.55-1.02 [facility] Comment on above: Result Comment: PT H AD LABS DONE AT C[facility]TRAL REG. THIS AM UNDER CVS V# DATED FOR TODAY. Performed By: #### L 500.4050, L100.0100 #### [facility] [address] [place], [address] EST GFR Normal >60 [facility] Comment on above: Result Comment: PT H AD LABS DONE AT CENTRAL REG. THIS AM UNDER CVS V# DATED FOR TODAY. Performed By: #### L 500.4050, L100.0100 #### [facility] [address] [place], [address] EST GFR - AA Normal >60 [facility] Comment on above: Result Comment: PT H AD LABS DONE AT CENTRAL REG. THIS AM UNDER CVS V# DATED FOR TODAY. Performed By: #### L 500.4050, L100.0100 #### [facility] [address] [place], [address] GAP Normal 5-15 [facility] Comment on above: Result Comment: PT H AD LABS DONE AT CENTRAL REG. THIS AM UNDER CVS V# DATED FOR TODAY. Performed By: #### L 500.4050, L100.0100 #### [facility] [address] [place], [address] GLU Normal 74-106 [facility] Comment on above: Result Comment: PT H AD LABS DONE AT CENTRAL REG. THIS AM UNDER CVS V# DATED FOR TODAY. Performed By: #### L 500.4050, L100.0100 #### [facility] [address] [place], [address] Potassium Normal 3.5-5.1 [facility] Comment on above: Result Comment: PT H AD LABS DONE AT CENTRAL REG. THIS AM UNDER CVS V# DATED FOR TODAY. Performed By: #### L 500.4050, L100.0100 #### [facility] [address] [place], [address] T BILI Normal 0.20-1.00 [facility] Comment on above: Result Comment: PT H AD LABS DONE AT CENTRAL REG. THIS AM UNDER CVS V# DATED FOR TODAY. Performed By: #### L 500.4050, L100.0100 #### [facility] [address] [place], [address] T PROT Normal 6.4-8.2 [facility] Comment on above: Result Comment: PT H AD LABS DONE AT CENTRAL REG. THIS AM UNDER CVS V# DATED FOR TODAY. Performed By: #### L 500.4050, L100.0100 #### [facility] [address] [place], [address] Comprehensive Metabolic Profil Normal 136-145 [facility] Comment on above: Result Comment: PT H AD LABS DONE AT CENTRAL REG. THIS AM UNDER CVS V# DATED FOR TODAY. Performed By: #### L 500.4050, L100.0100 #### [facility] [address] [place], [address] Albumin [Mass/Vol] 3.9 g/dL Normal 3.2-5.0 [facility] Comment on above: Performed By: #### L 500.4050, L100.0100 ####[facility] [address] [place], [address] Albumin/Globulin [Mass ratio] 1.3 {ratio} Normal 0.9-2.4 [facility] Comment on above: Performed By: #### L 500.4050, L100.0100 ####[facility] [address] [place], [address] ALK P 32 U/L Low 45-117 [facility] Comment on above: Performed By: #### L 500.4050, L100.0100 ####[facility] [address] [place], [address] ALT [Catalytic activity/Vol] 23 U/L Normal 13-56 [facility] Comment on above: Performed By: #### L 500.4050, L100.0100 ####[facility] [address] [place], [address] AST [Catalytic activity/Vol] 20 U/L Normal 15-37 [facility] Comment on above: Performed By: #### L 500.4050, L100.0100 ####[facility] [address] [place], [address] Bilirubin [Mass/Vol] 0.20 mg/dL Normal 0.20-1.00 [facility] Comment on above: Result Comment: For patients on eltrombopag therapy, use of Dimension [place] TBIL is not recommended. Performed By: #### L 500.4050, L100.0100 ####[facility] [address] [place], [address] BUN/CRE 17.5 RATIO Normal 10-20 [facility] Comment on above: Performed By: #### L 500.4050, L100.0100 ####[facility] [address] [place], [address] CA,Total 9.3 mg/dL Normal 8.5-10.1 [facility] Comment on above: Performed By: #### L 500.4050, L100.0100 ####[facility] [address] [place], [address] Chloride [Moles/Vol] 113 mmol/L High 98-107 [facility] Comment on above: Performed By: #### L 500.4050, L100.0100 ####[facility] [address] [place], [address] CO2 [Moles/Vol] 25.0 mmol/L Normal 21.0-32.0 [facility] Comment on above: Performed By: #### L 500.4050, L100.0100 ####[facility] [address] [place], [address] Creatinine [Mass/Vol] 1.03 mg/dL High 0.55-1.02 [facility] Comment on above: Result Comment: The validity of the calculated GFR GFRAA in patients over 70 years has not been determined. Clinical correlation is essential. Performed By: #### L 500.4050, L100.0100 ####[facility] [address] [place], [address] EST GFR - AA 74 mL/min Normal >60 [facility] Comment on above: Result Comment: Afri can [place] GFR Calc Performed By: #### L 500.4050, L100.0100 ####[facility] [address] [place], [address] GAP 5 Normal 5-15 [facility] Comment on above: Performed By: #### L 500.4050, L100.0100 ####[facility] [address] [place], [address] GFR/1.73 sq M.predicted among non-blacks MDRD (S/P/Bld) [Vol rate/Area] 61 mL/min/{1.73_m2} Normal >60 [facility] Comment on above: Result Comment: Non- GFR Calc Performed By: #### L 500.4050, L100.0100 ####[facility] [address] [place], [address] Globulin (S) [Mass/Vol] 3.1 g/dL Normal 2.2-4.2 [facility] Comment on above: Performed By: #### L 500.4050, L100.0100 ####[facility] [address] [place], [address] Glucose [Mass/Vol] 198 mg/dL High 74-106 [facility] Comment on above: Result Comment: Fast ing Glucose result greater than or equal to 126 mg/dL suggests DIABETES MELLITUS per A.D.A. criteria. Performed By: #### L 500.4050, L100.0100 ####[facility] [address] [place], [address] Potassium [Moles/Vol] 4.0 mmol/L Normal 3.5-5.1 [facility] Comment on above: Performed By: #### L 500.4050, L100.0100 ####[facility] [address] [place], [address] Sodium [Moles/Vol] 143 mmol/L Normal 136-145 [facility] Comment on above: Performed By: #### L 500.4050, L100.0100 ####[facility] [address] [place], [address] T PROT 7.0 g/dL Normal 6.4-8.2 [facility] Comment on above: Performed By: #### L 500.4050, L100.0100 ####[facility] [address] [place], [address] Urea nitrogen [Mass/Vol] 18 mg/dL Normal 7-18 [facility] Comment on above: Performed By: #### L 500.4050, L100.0100 ####[facility] [address] [place], [address] Eosinophil percentageOrdered By: Arelis Wang on 02-29-2024 Eosinophils/100 WBC (Bld) 5.6 % High 0-5 [facility] Erythrocyte distribution wid th ratioOrdered By: Arelis Wang on 02-29-2024 Erythrocyte distribution width (RBC) [Ratio] 13.9 % 11.6-14.6 [facility] Erythrocyte distribution wid th standard deviationOrdered By: Arelis Wang on 02-29-2024 Erythrocyte distribution width (RBC) [Entitic vol] 46.2 fL High 35.1-43.9 [facility] Estimated glomerular filtrat ion rate (GFR) AmericanOrdered By: Arelis Wang on 02-29-2024 Estimated GFR (MDRD) Amer 74 mL/min >60 [facility] Comment on above: GFR Calc Glomerular filtration rate ( GFR) estimationOrdered By: Arelis Wang on 02-29-2024 Estimated GFR (MDRD) Non-Af Amer 61 mL/min >60 [facility] Comment on above: Non- GFR Calc Glucose measurementOrdered B y: Arelis Wang on 02-29-2024 Glucose [Mass/Vol] 198 mg/dL High 74-106 [facility] Comment on above: Fasting Glucose resu lt greater than or equal to 126 mg/dL suggests DIABETES MELLITUS per A.D.A. criteria. Hematocrit Auto (Bld) [Volum e fraction]Ordered By: Arelis Wang on 02-29-2024 Hematocrit (Bld) [Volume fraction] 36.4 % Low 37-47 [facility] Hemoglobin measurementOrdere d By: Arelis Wang on 02-29-2024 Hemoglobin (Bld) [Mass/Vol] 11.6 g/dL Low 12.0-15.0 [facility] Immature granulocytes/100 WB C Auto (Bld)Ordered By: Arelis Wang on 02-29-2024 Immature granulocytes/100 WBC (Bld) 0.200 % 0.0-0.9 [facility] Comment on above: IG% - Immature Granu locytes (promyelocytes, myelocytes and metamyelocytes) > 1% indicates that a LEFT SHIFT is Present. Laboratory - Chemistry and C hemistry - challengeOrdered By: Arelis Wang on 02-29-2024 AST [Catalytic activity/Vol] 20 U/L 15-37 [facility] Lymphocytes Auto (Unsp spec) [#/Vol]Ordered By: Arelis Wang on 02-29-2024 Lymphocytes (Bld) [#/Vol] 1.79 10*3/uL 0.83-4.51 [facility] Lymphocytes/100 WBC Auto (Un sp spec)Ordered By: Arelis Wang on 02-29-2024 Lymphocytes/100 WBC (Bld) 33.1 % 19-41 [facility] MCV (mean corpuscular volume ) determinationOrdered By: Arelis Wang on 02-29-2024 MCV (RBC) [Entitic vol] 90.1 fL 81-99 [facility] Mean corpuscular hemoglobin (MCH) determinationOrdered By: Arelis Wang on 02-29-2024 MCH (RBC) [Entitic mass] 28.7 pg 27.0-32.0 [facility] Mean corpuscular hemoglobin concentration (MCHC) determinationOrdered By: Arelis Wang on 02-29-2024 MCHC (RBC) [Mass/Vol] 31.9 g/dL Low 32-36 [facility] Mean platelet volume determi nationOrdered By: Arelis Wang on 02-29-2024 Platelet mean volume (Bld) [Entitic vol] 8.6 fL 6.2-12.0 [facility] Monocyte percentageOrdered B y: Arelis Wang on 02-29-2024 Monocytes/100 WBC (Bld) 7.4 % 0-10 [facility] Neutrophil percentageOrdered By: Arelis Wang on 02-29-2024 Neutrophils/100 WBC (Bld) 52.8 % 47-70 [facility] Nucleated red blood cell per centageOrdered By: Arelis Wang on 02-29-2024 Nucleated RBC/100 WBC (Bld) [Ratio] 0 % 0-5 [facility] ONC Echo Completeon 02-29-20 ONC Echo Complete [facility] [address] [place] [address] ONC Echo Complete 02/29/24 0802 MR#: [id number] Acct: [id number] Name: ISABELLE NAGY Rep #: [id number] : 1980 44 From: Ulises Cole MD Attending Dr: ZAC Dove Status: REG CLI Ordering Dr: Arelis Wang NP OVER SHORT AND DAMAGE CLERK-C Date: 02/29/24 Location: [facility] Sex: F PI Admitted: Reason For Study: CHEMOTHERAPY Procedure This was a 2D Doppler, Color Flow transthoracic echocardiogram. Myocardial strain analysis was performed in this exam to aid in the assessment of cardiac function. Exam performed in department. Left Ventricle Normal LV size. The global longitudinal strain = -20.1 % (normal). The left ventricular ejection fraction is 60 %. No regional wall motion abnormalities noted. Right Ventricle Normal RV size. Normal systolic function. Atria Normal left atrium. Normal right atrium. Mitral Valve Normal mitral valve. Tricuspid Valve Normal tricuspid valve. Aortic Valve Normal aortic valve. Trisinus/trileaflet aortic valve. Pulmonic Valve Normal pulmonic valve. Great Vessels Normal aortic root. The pulmonary artery is normal size. Inferior vena cava collapse with respiration. Pericardium/Pleural No pericardial effusion. MMode/2D Measurements Calculations LVIDd: 4.3 cm IVSd: 1.2 cm LVOT diam: 2.0 cm LVIDs: 2.9 cm LVPWd: 0.99 cm LVOT area: 3.1 cm2 RVDd: 2.4 cm FS: 33.7 % ___ asc Aorta Diam: 3.5 cm LAV(MOD-bp): 29.2 ml LVAd ap4: 19.0 cm2 LAV(MOD-bp) Indexed: 16.9 ml/m2 LVLd ap4: 6.7 cm LAV(MOD-sp2): 41.6 ml EDV(MOD-sp4): 44.4 ml LAV(MOD-sp4): 19.7 ml EDV(sp4-el): 45.5 ml LVAs ap4: 10.7 cm2 LVLs ap4: 5.6 cm ESV(MOD-sp4): 18.4 ml ESV(sp4-el): 17.3 ml EF(MOD-sp4): 58.6 % EF(sp4-el): 61.9 % ___ LVAd ap2: 19.9 cm2 SV(MOD-sp4): 26.1 ml SV(MOD-sp2): 28.6 ml LVLd ap2: 7.5 cm SI(MOD-sp4): 15.1 ml/m2 SI(MOD-sp2): 16.6 ml/m2 EDV(MOD-sp2): 44.8 ml EDV(sp2-el): 44.6 ml LVAs ap2: 10.7 cm2 LVLs ap2: 6.0 cm ESV(MOD-sp2): 16.2 ml ESV(sp2-el): 16.2 ml EF(MOD-sp2): 63.9 % ___ SV(sp4-el): 28.2 ml Ao sinus diam: 2.[address] Junction: 2.5 cm ___ LA dimension(2D): 3.2 cm LA A4 area: 10.2 cm2 RA A4 area: 7.5 cm2 ___ TAPSE: 1.7 cm Time Measurements MV dec time: 0.25 sec Doppler Measurements Calculations MV E max tj: 65.9 cm/sec Lat Peak E' Tj: 11.5 cm/sec Med Peak E' Tj: 10.2 cm/sec MV A max tj: 72.2 cm/sec E/E' lat: 5.7 E/E' med: 6.5 MV E/A: 0.91 ___ MV dec slope: 258.5 cm/sec2 Ao V2 max: 122.9 cm/sec LV V1 max: 81.0 cm/sec Ao max P.0 mmHg LV V1 max P.6 mmHg Ao V2 mean: 76.3 cm/sec LV V1 mean P.7 mmHg Ao mean P.6 mmHg LV V1 mean: 63.6 cm/sec Ao V2 VTI: 20.2 cm LV V1 VTI: 17.6 cm AV (velocity ratio): 0.87 LEIT(I,D): 2.7 cm2 LETI(V,D): 2.0 cm2 ___ SV(LVOT): 53.7 ml PA V2 max: 80.0 cm/sec ECHO/ONC Echo Complete Interpretation Summary Normal LV size. The global longitudinal strain = -20.1 % (normal). The left ventricular ejection fraction is 60 %. Structurally normal valves. Ordering Physician: Arelis Wang Referring Physician: Arelis Wang Performed By: Juana Rogers RDCS 03/04/24 0904 Date Ulises Cole MD CC: ZAC Loving; ZAC Wang Date Dictated: 02/29/24801 Date Transcribed: 03/04/24903 [employer] Teacher: Signed Normal [facility] Oncology Visit Reporton Oncology Visit Report [facility] [place] [facility] [place] [address] OFFICE VISIT Date of Service: 02/29/24904 MR#: [id number] Acct: [id number] Name: ISABELLE NAGY Rep #: [id number] : 1980 From: Myrna Szymanski MD Age/Sex: 44/F Location: [facility] Status: Signed HPI Subjective Date of Service 02/29/24 Chief Complaint breast cancer History of Present Illness 43-year-old female, premenopausal at presentation following an abnormal screening mammogram. June 25, 2022 mammogram: 1.9 cm irregular focal asymmetry in the right breast and a second 0.9 cm focal asymmetry at 5:00. June 25, 2022 right breast and axilla ultrasound: 1.9 cm in maximum diameter irregular solid mass in the right breast at 5:00 posterior depth highly suggestive of malignancy in addition to a 1 cm lesion at 5:00 in the retroareolar region. No significant abnormalities were seen in the right axilla. July 01, 2022: A. Right breast at 5 o???clock, 3 cm, biopsy: Mild fibrocystic change. No evidence of malignancy. B. Right breast at 5 o???clock, 7 cm, biopsy: Invasive ductal carcinoma with the follow characteristics: Nuclear grade - 2-3 Maximal length - 10 millimeters ANTIBODY / CLONE RESULT Block B P53 (DO-7) positive, 80% Ki-67 (30-9) positive, 90% CK8 (28oboqM59) positive CK5-6 (D5 1684) negative Calponin-1 (QR147Z) negative P40 (BC28) negative E-Cad (ECH-6) positive SULLIVAN-2 (SP21) positive MORPHOMETRIC ANALYSIS ER (clone 6F11) 65%, weak to moderate intensity [place] (clone 16/1E2) 45%, weak to moderate intensity Her-2Neu (clone CB11) 3+ December 25, 2022 right breast lumpectomy with sentinel lymph node biopsy: FROZEN SECTION DIAGNOSIS A. Right sentinel lymph nodes, biopsy: Two out of two lymph nodes, negative for metastatic carcinoma. SJ:sahra 12/25/2022 MICROSCOPIC DIAGNOSIS A. Right sentinel lymph nodes, biopsy: Two out of two lymph nodes, negative for metastatic carcinoma. See comment. B. Right breast mass, lumpectomy with needle localization: No evidence of residual carcinoma. Changes consistent with previous biopsy site. Treatment summary and response: * Neoadjuvant TCHP August 04, 2022???November 17, 2022 (6 cycles): Complete pathologic remission * Herceptin maintenance December 2022???August 2023 (concluded at 1 year) * Tamoxifen February 2023- * Adjuvant radiation therapy to the right breast consisting of 4000 cGy delivered to the entire breast and 4800 cGy delivered to the lumpectomy cavity all in 15 fractions with a simultaneous integrated boost technique. She was treated using a 3D conformal treatment plan with 10 MV photons. Date of First Treatment: 02/09/2023 Date of Last Treatment: 03/02/2023 [facility] Medical History History of renal disease Bone pain Screening for osteoporosis Visit for pelvic exam Well adult exam History of Clostridium difficile infection History of echocardiogram C. difficile diarrhea Hypokalemia Left ankle pain Anemia Encounter for chemotherapy management Encounter for monitoring cardiotoxic drug therapy Wears glasses Cancer Anxiety Insulin dependent diabetes mellitus Back pain Dietary restriction Former smoker Shortness of breath on exertion Hx of tear of ACL (anterior cruciate ligament) Liver hemangioma Encounter for insertion of venous access port Abnormal MRI Encounter for education CINV (chemotherapy-induced nausea and vomiting) Invasive ductal carcinoma of right breast Migraines Adopted Cleft lip Herpes simplex Hypercholesterolemia Surgical History Hx of hysterectomy S/P CECILE-BSO History of lumpectomy of right breast Status post right breast lumpectomy Hx of surgical procedure Hx of nasal septoplasty Hx of tonsillectomy Cleft palate and cleft lip Social History Smoking Status: Former smoker how long ago did patient quit smoking: cut back on smoking, now vaping as well second hand exposure: No alcohol intake: never substance use type: does not use additional social history: Boyfriend-Bhupendra TSANG Constitutional Constitutional: Reports systems reviewed and no addt'l complaints, except as documented; Denies fever(s), night sweats or weight loss Eyes Eyes: Reports systems reviewed and no addt'l complaints, except as documented; Denies change in vision ENT HEENT: Reports systems reviewed and no addt'l complaints, except as documented Cardiovascular Cardiovascular: Reports systems reviewed and no addt'l complaints, except as documented; Denies chest pain with activity or edema Respiratory/Chest Respiratory/Chest: Reports systems reviewed and no addt'l complaints, except as documented; Denies cough, dyspnea on exertion or hemoptysi (more content not included)... Normal [facility] Platelet countOrdered By: Dylan Wang on 02-29-2024 Platelets (Bld) [#/Vol] 298 10*3/uL 150-450 [facility] Potassium measurementOrdered By: Arelis Wang on 02-29-2024 Potassium [Moles/Vol] 4.0 mmol/L 3.5-5.1 [facility] RBC Auto (Bld) [#/Vol]Ordere d By: Arelis Wang on 02-29-2024 RBC (Bld) [#/Vol] 4.04 10*6/uL Low 4.2-5.[address] [facility] Serum anion gap measurementO rdered By: Arelis Wang on 02-29-2024 Anion gap [Moles/Vol] 5 mmol/L 5-15 [facility] Serum globulin measurementOr dered By: Arelis Wang on 02-29-2024 Globulin (S) [Mass/Vol] 3.1 g/dL 2.2-4.2 [facility] Serum or plasma alanine matute otransferase (ALT) measurementOrdered By: Arelis Wang on 02-29-2024 ALT [Catalytic activity/Vol] 23 U/L 13-56 [facility] Serum or plasma albumin tressa urement (mass/volume)Ordered By: Arelis Wang on 02-29-2024 Albumin [Mass/Vol] 3.9 g/dL 3.2-5.0 [facility] Serum or plasma alkaline loreto sphatase measurementOrdered By: Arelis Wang on 02-29-2024 ALP [Catalytic activity/Vol] 32 U/L Low 45-117 [facility] Serum or plasma calcium tressa urement (mass/volume)Ordered By: Arelis Wang on 02-29-2024 Calcium [Mass/Vol] 9.3 mg/dL 8.5-10.1 [facility] Serum or plasma creatinine m easurement (mass/volume)Ordered By: Arelis Wang on 02-29-2024 Creatinine [Mass/Vol] 1.03 mg/dL High 0.55-1.02 [facility] Comment on above: The validity of the calculated GFR & GFRAA in patients over 70 years has not been determined. Clinical correlation is essential. Serum or plasma urea nitroge n measurement (mass/volume)Ordered By: Arelis Wang on 02-29-2024 Urea nitrogen [Mass/Vol] 18 mg/dL 7-18 [facility] Sodium levelOrdered By: Arelis Wang on 02-29-2024 Sodium [Moles/Vol] 143 mmol/L 136-145 [facility] Total proteinOrdered By: Cassy Wang on 02-29-2024 Protein [Mass/Vol] 7.0 g/dL 6.4-8.2 [facility] White blood cell (WBC) count Ordered By: Arelis Wang on 02-29-2024 WBC (Bld) [#/Vol] 5.4 10*3/uL 4.4-11.0 [facility] Pressure Controller Office Visit Reporton 02-22-2024 Pressure Controller Office Visit Report [facility]'[address], [address] [place] [address] OFFICE VISIT Date of Service: 02/22/24 MR#: [id number] Acct: [id number] Name: ISABELLE NAGY THOMAS Rep #: [id number] : 1980 Provider: Dr. Reba Gallegos DO Age/Sex: 44/F Location: [facility] [place] Status: Signed Intake Vital Signs 10/08/23 08:17 02/15/24 12:12 02/22/24 11:25 02/22/24 11:27 Height 5 ft 3 in 5 ft 3 in 5 ft 3 in 5 ft 3 in Weight: 165 lb BMI 29.2 BP 112/72 Intake Visit Reasons: 2 wk TRHBSO cysto Chief Complaint: 2w incision check Collar Worker Required: No Is patient in pain?: No Allergies codeine Allergy (Severe, Verified 02/09/24 09:09) rash hydrocodone (From Vicodin) Allergy (Severe, Verified 02/09/24 09:09) rash Penicillins Allergy (Severe, Verified 02/09/24 09:09) rash propoxyphene (From Darvocet-N) Allergy (Severe, Verified 02/09/24 09:09) rash caffeine Adverse Reaction (Severe, Verified 02/09/24 09:09) migraine Medications ???Medication ???Instructions ???Recorded ???Confirmed ???Type multivitamin 1 tab PO DAILY 12/01/17 02/15/24 History sumatriptan succinate 100 mg tablet 100 mg PO PRN PRN MIGRAINES 07/28/22 02/15/24 History loratadine 10 mg tablet (Claritin) 10 mg PO DAILY 12/16/22 02/15/24 History tamoxifen 20 mg tablet 20 mg PO DAILY #90 tabs 03/05/23 02/15/24 Rx blood sugar diagnostic (OneTouch #100 ea 06/12/23 02/15/24 Rx Ultra Test strips) pen needle, diabetic 29 gauge x #270 ea 06/12/23 02/15/24 Rx 1/2 (BD Ultra-Fine Original Pen Needle) valacyclovir 1 gram tablet 1,000 mg PO TID PRN cod sore 7 09/07/23 02/15/24 Rx days #21 tabs dapagliflozin propanediol 10 mg 10 mg PO QAM 12/03/23 02/15/24 History tablet (Farxiga) zolpidem 10 mg tablet 10 mg PO QHS PRN insomnia #30 tabs 12/07/23 02/15/24 Rx benzonatate 200 mg capsule 200 mg PO TID PRN cough #60 caps 12/30/23 02/15/24 Rx atorvastatin 20 mg tablet (Lipitor) 20 mg PO QHS #90 tabs 01/12/24 02/15/24 Rx fenofibrate nanocrystallized 145 145 mg PO DAILY #90 tabs 01/12/24 02/15/24 Rx mg tablet insulin lispro 100 unit/mL 1 sliding scale dose subcut TID 01/12/24 02/15/24 Rx subcutaneous pen (Humalog KwikPen SLIDING SCALE 1-100 units a day 90 (U-100) Insulin) days #15 mL sitagliptin phosphate 50 mg tablet 50 mg PO DAILY #90 tabs 01/12/24 02/15/24 Rx (Januvia) topiramate 100 mg tablet (Topamax) 100 mg PO QHS #90 tabs 01/12/24 02/15/24 Rx calcium 600 mg (as 1 tab PO DAILY 01/26/24 02/15/24 History carbonate)-vitamin D3 5 mcg (200 unit) tablet hydromorphone 2 mg tablet 2 mg PO Q6H PRN pain 7 days #20 02/09/24 02/15/24 Rx (Dilaudid) tabs glyburide 5 mg tablet 10 mg (2 x 5 mg) PO BID 90 days 02/12/24 02/12/24 Rx #360 tabs semaglutide 1 mg/dose (4 mg/3 mL) 1 mg (0.75 mL) subcut SA 30 days 02/12/24 02/12/24 Rx subcutaneous pen injector (Ozempic) #3.75 mL Saccharomyces boulardii 250 mg 250 mg PO BID 02/22/24 02/22/24 History capsule (Florastor) lactobacillus combination no.4 3 3,000 mmu cells PO QDAY 02/22/24 02/22/24 History billion cell capsule (Probiotic) Post menopausal: No Patient : No : No [facility] Medical History (Updated 01/26/24 @ 11:38 by Gail Hopper) History of renal disease Bone pain Screening for osteoporosis Visit for pelvic exam Well adult exam History of Clostridium difficile infection History of echocardiogram C. difficile diarrhea Hypokalemia Left ankle pain Anemia Encounter for chemotherapy management Encounter for monitoring cardiotoxic drug therapy Wears glasses Cancer Anxiety Insulin dependent diabetes mellitus Back pain Dietary restriction Former smoker Shortness of breath on exertion Hx of tear of ACL (anterior cruciate ligament) Liver hemangioma Encounter for insertion of venous access port Abnormal MRI Encounter for education CINV (chemotherapy-induced nausea and vomiting) Invasive ductal carcinoma of right breast Migraines Adopted Cleft lip Herpes simplex Hypercholesterolemia Surgical History (Updated 02/15/24 @ 12:08 by Jose Loving NP, OVER SHORT AND DAMAGE CLERK-C) S/P CECILE-BSO History of lumpectomy of right breast Status post right breast lumpectomy Hx of surgical procedure Hx of nasal septoplasty Hx of tonsillectomy Cleft palate and cleft lip Social History Smoking Status: Former smoker how long ago did patient quit smoking: cut back on smoking, now vaping as well second hand exposure: No alcohol intake: never substance use type: does not use additional social history: Boyfriend-Bhupendra HPI 2 wk TRHBSO cysto Details: ISABELLE ANGY is a 44 year old who presents for 2 week post op robotic hyst with bso for breast cancer risk reduction. Her onl (more content not included)... Normal [facility] Ferritin measurementOrdered By: Myrna Szymanski on 12-03-2023 Ferritin [Mass/Vol] 178 ng/mL 8-[address] [facility] Iron measurement (mass/mass) Ordered By: Myrna Szymanski on 12-03-2023 Iron (Unsp spec) [Mass/Mass] 67 ug/dL 50-170 [facility] Serum or plasma iron saturat ion measurement (mass fraction)Ordered By: Myrna Szymanski on 12-03-2023 Iron saturation [Mass fraction] 15.3 % 15.0-55.0 [facility] Laboratory - Chemistry and C hemistry - challengeon 07-20-2023 HCG ( test) Ql (U) Negative [facility] No Panel InformationOrdered By: Deidre Hinkle on 07-20-2023 CA 125 Antigen 12.9 U/mL 0.0-38.1 [facility] Comment on above: [employer] El ectrochemiluminescence Immunoassay(ECLIA)Values obtained with different assay methods or kits cannotbe used interchangeably. Results cannot be interpreted asabsolute evidence of the presence or absence of malignantdisease.Performed at: [place] [id number] Director: Sarmad Martinez PhD, Phone: [phone] Serum or plasma carcinoembry onic antigen measurement (mass/volume)Ordered By: Deidre Hinkle on 07-20-2023 Carcinoembryonic Ag [Mass/Vol] 0.9 ng/mL 0.0-4.7 [facility] Comment on above: Nonsmokers <3.9 Smok ers <5.6[employer] Electrochemiluminescence Immunoassay(ECLIA)Values obtained with different assay methods or kitscannot be used interchangeably. Results cannot beinterpreted as absolute evidence of the presence orabsence of malignant disease. Absolute lymphocyte countOrd ered By: Myrna Szymanski on 07-09-2023 Lymphocytes Auto (Unsp spec) [#/Vol] 1.32 10*3/uL 0.83-4.51 [facility] Automated lymphocyte count a s percentage of total leukocytesOrdered By: Myrna Szymanski on 07-09-2023 Lymphocytes/100 WBC Auto (Unsp spec) 25.6 % 19-41 [facility] Basophil percentageOrdered B y: Myrna Szymanski on 07-09-2023 Basophils/100 WBC (Bld) 0.4 % 0-1 [facility] Eosinophils/100 WBC (Bld) 1.9 % 0-5 [facility] Hemoglobin (Bld) [Mass/Vol] 10.6 g/dL 12.0-15.0 [facility] Monocytes/100 WBC (Bld) 5.4 % 0-10 [facility] Neutrophils (Bld) [#/Vol] 3.4 10*3/uL 2.0-7.7 [facility] Neutrophils/100 WBC (Bld) 66.3 % 47-70 [facility] WBC (Bld) [#/Vol] 5.2 10*3/uL 4.4-11.0 [facility] Basophil percentageOrdered B y: Arelis Wang on 07-09-2023 Bilirubin [Mass/Vol] 0.30 mg/dL 0.20-1.00 [facility] Comment on above: For patients on eltr ombopag therapy, use of [place] TBIL is not recommended. Chloride [Moles/Vol] 112 mmol/L 98-107 [facility] Glucose [Mass/Vol] 160 mg/dL 74-106 [facility] Comment on above: Fasting Glucose resu lt greater than or equal to 126 mg/dL suggests DIABETES MELLITUS per A.D.A. criteria. Potassium [Moles/Vol] 3.8 mmol/L 3.5-5.1 [facility] Protein [Mass/Vol] 6.5 g/dL 6.4-8.2 [facility] Sodium [Moles/Vol] 142 mmol/L 136-145 [facility] Determination of erythrocyte mean corpuscular volume (MCV)Ordered By: Myrna Szymanski on 07-09-2023 MCV (RBC) [Entitic vol] 88.5 fL 81-99 [facility] Erythrocyte distribution wid th ratioOrdered By: [facility] Nessa on 07-09-2023 Erythrocyte distribution width (RBC) [Ratio] 13.8 % 11.6-14.6 [facility] Erythrocyte distribution wid th standard deviationOrdered By: [facility] Nessa on 07-09-2023 Erythrocyte distribution width (RBC) [Entitic vol] 44.5 fL 35.1-43.9 [facility] Hematocrit Auto (Bld) [Volum e fraction]Ordered By: [facility] Nessa on 07-09-2023 Hematocrit (Bld) [Volume fraction] 32.4 % 37-47 [facility] Immature granulocytes/100 WB C Auto (Bld)Ordered By: [facility] Nessa on 07-09-2023 Immature granulocytes/100 WBC (Bld) 0.400 % 0.0-0.9 [facility] Comment on above: IG% - Immature Granu locytes (promyelocytes, myelocytes and metamyelocytes) > 1% indicates that a LEFT SHIFT is Present. Laboratory - Chemistry and C hemistry - challengeOrdered By: Arelis Wang on 07-09-2023 Albumin/Globulin [Mass ratio] 1.3 {ratio} 0.9-2.4 [facility] ALP [Catalytic activity/Vol] 31 U/L 45-117 [facility] ALT [Catalytic activity/Vol] 25 U/L 13-56 [facility] CO2 [Moles/Vol] 25.0 mmol/L 21.0-32.0 [facility] Globulin (S) [Mass/Vol] 2.8 g/dL 2.2-4.2 [facility] Urea nitrogen/Creatinine [Mass ratio] 20.0 mg/mg 10-20 [facility] Laboratory - Hematology and Cell countsOrdered By: Myrna Szymanski on 07-09-2023 MCH (RBC) [Entitic mass] 29.0 pg 27.0-32.0 [facility] MCHC (RBC) [Mass/Vol] 32.7 g/dL 32-36 [facility] Nucleated RBC/100 WBC (Bld) [Ratio] 0 % 0-5 [facility] Platelet mean volume (Bld) [Entitic vol] 8.2 fL 6.2-12.0 [facility] Platelets (Bld) [#/Vol] 247 10*3/uL 150-450 [facility] No Panel InformationOrdered By: Arelis Wang on 07-09-2023 Estimated Creatinine Clearance Calc 62.58 ml/min [facility] Estimated GFR (MDRD) Amer 69 mL/min >60 [facility] Comment on above: GFR Calc Estimated GFR (MDRD) Non-Af Amer 57 mL/min >60 [facility] Comment on above: Non- GFR Calc RBC Auto (Bld) [#/Vol]Ordere d By: Myrna Szymanski on 07-09-2023 RBC (Bld) [#/Vol] 3.66 10*6/uL 4.2-5.[address] [facility] Serum or plasma calcium tressa urement (mass/volume)Ordered By: Arelis Wang on 07-09-2023 Calcium [Mass/Vol] 8.8 mg/dL 8.5-10.1 [facility] Serum or plasma creatinine m easurement (mass/volume)Ordered By: Arelis Wang on 07-09-2023 Creatinine [Mass/Vol] 1.10 mg/dL 0.55-1.02 [facility] Comment on above: The validity of the calculated GFR & GFRAA in patients over 70 years has not been determined. Clinical correlation is essential. Serum or plasma thyroid stim ulating hormone (TSH) measurement (units/volume)Ordered By: Arelis Wang on 07-09-2023 TSH Qn 0.86 uIU/mL 0.358-3.74 [facility] Serum or plasma urea nitroge n measurement (mass/volume)Ordered By: Arelis Wang on 07-09-2023 Urea nitrogen [Mass/Vol] 22 mg/dL 7-18 [facility] Thin prep Papanicolaou smear with manual screeningOrdered By: Arelis Wang on 07-09-2023 Thin prep Papanicolaou smear with manual screening 3.7 g/dL 3.2-5.0 [facility] Thin prep Papanicolaou smear with manual screening 17 U/L 15-37 [facility] Thin prep Papanicolaou smear with manual screening 5 5-15 [facility] Cervical or vaginal specimen microscopic examination by liquid based cytology (reportOrdered By: Deidre Hinkle on 05-18-2023 Cytology report Cyto stain.thin prep Doc (Cvx/Vag) Comment . [facility] Comment on above: Criteria not met, HP V Genotype not performed.Performed at: [facility] [employer] [id number] Director: Sachi Garcia MD, Phone: [phone] at: =[address] [id number] Director: Sachi Garcia MD, Phone: [phone] Cervical or vagninal specime n microscopic examination by cytology stain (reported asOrdered By: Deidre Hinkle on 05-18-2023 Cytology report Cyto stain Doc (Cvx/Vag) Comment . [facility] Comment on above: The Pap smear is a s creening test designed to aid in thedetection of premalignant and malignant conditions of theuterine cervix. It is not a diagnostic procedure andshould not be used as the sole means of detecting cervicalcancer. Both false-positive and false-negative reports dooccur. Detection in cervical specim en of any of human papilloma virus (HPV) 16, 18, 31, 33,Ordered By: Deidre Hinkle on 05-18-2023 HPV 16+18+31+33+35+39+45+51 +52+56+58+59+66+68 DNA Probe+sig amp Ql (Cvx) Negative Negative [facility] Comment on above: This nucleic acid am plification test detects fourteen high-risk HPV types (16,18,31,33,35,39,45,51,52,56,58,59,66,68)without differentiation. Laboratory - CytologyOrdered By: Deidre Hinkle on 05-18-2023 [employer] Cyto stain Nom (Cvx/Vag) [ID] Comment . [facility] Comment on above: Ronaldo Sim ytotechnologist (ASCP) Laboratory - Miscellaneous t estsOrdered By: Deidre Hinkle on 05-18-2023 Service comment (Unsp spec) [Interp] . . [facility] Thin prep Papanicolaou smear with manual screeningOrdered By: Deidre Hinkle on 05-18-2023 Thin prep Papanicolaou smear with manual screening Comment . [facility] Comment on above: NEGATIVE FOR INTRAEP ITHELIAL LESION OR MALIGNANCY.SPECIMEN REPROCESSED FOR INTERPRETATION. Thin prep Papanicolaou smear with manual screening TNP [facility] Comment on above: Test not performedTh e Thin Prep(R) Iron Piler was unable to read this specimen.Therefore a manual review was performed. Absolute lymphocyte countOrd ered By: Myrna Szymanski on 04-16-2023 Lymphocytes Auto (Unsp spec) [#/Vol] 1.27 10*3/uL 0.83-4.51 [facility] Automated lymphocyte count a s percentage of total leukocytesOrdered By: Myrna Szymanski on 04-16-2023 Lymphocytes/100 WBC Auto (Unsp spec) 19.4 % 19-41 [facility] Basophil percentageOrdered B y: Myrna Szymanski on 04-16-2023 Basophils/100 WBC (Bld) 0.6 % 0-1 [facility] Eosinophils/100 WBC (Bld) 3.1 % 0-5 [facility] Hemoglobin (Bld) [Mass/Vol] 11.6 g/dL 12.0-15.0 [facility] Monocytes/100 WBC (Bld) 8.1 % 0-10 [facility] Neutrophils (Bld) [#/Vol] 4.5 10*3/uL 2.0-7.7 [facility] Neutrophils/100 WBC (Bld) 68.5 % 47-70 [facility] WBC (Bld) [#/Vol] 6.5 10*3/uL 4.4-11.0 [facility] Basophil percentageOrdered B y: Arelis Wang on 04-16-2023 Bilirubin [Mass/Vol] 0.30 mg/dL 0.20-1.00 [facility] Comment on above: For patients on eltr ombopag therapy, use of [place] TBIL is not recommended. Chloride [Moles/Vol] 112 mmol/L 98-107 [facility] Glucose [Mass/Vol] 169 mg/dL 74-106 [facility] Comment on above: Fasting Glucose resu lt greater than or equal to 126 mg/dL suggests DIABETES MELLITUS per A.D.A. criteria. Potassium [Moles/Vol] 3.8 mmol/L 3.5-5.1 [facility] Protein [Mass/Vol] 6.8 g/dL 6.4-8.2 [facility] Sodium [Moles/Vol] 142 mmol/L 136-145 [facility] COVID-19 virus antigen assay Ordered By: Myrna Szymanski on 04-16-2023 SARS-CoV-2 (COVID-19) Ag IA.rapid Ql (Resp) [facility] SARS-CoV-2 (COVID-19) Ag IA.rapid Ql (Resp) [facility] Determination of erythrocyte mean corpuscular volume (MCV)Ordered By: Myrna Szymanski on 04-16-2023 MCV (RBC) [Entitic vol] 90.4 fL 81-99 [facility] Erythrocyte distribution wid th ratioOrdered By: Myrna Szymanski on 04-16-2023 Erythrocyte distribution width (RBC) [Ratio] 14.5 % 11.6-14.6 [facility] Erythrocyte distribution wid th standard deviationOrdered By: Myrna Szymanski on 04-16-2023 Erythrocyte distribution width (RBC) [Entitic vol] 48.1 fL 35.1-43.9 [facility] Hematocrit Auto (Bld) [Volum e fraction]Ordered By: Myrna Szymanski on 04-16-2023 Hematocrit (Bld) [Volume fraction] 37.8 % 37-47 [facility] Immature granulocytes/100 WB C Auto (Bld)Ordered By: Myrna Szymanski on 04-16-2023 Immature granulocytes/100 WBC (Bld) 0.300 % 0.0-0.9 [facility] Comment on above: IG% - Immature Granu locytes (promyelocytes, myelocytes and metamyelocytes) > 1% indicates that a LEFT SHIFT is Present. Laboratory - Chemistry and C hemistry - challengeOrdered By: Arelis Wang on 04-16-2023 Albumin/Globulin [Mass ratio] 1.4 {ratio} 0.9-2.4 [facility] ALP [Catalytic activity/Vol] 47 U/L 45-117 [facility] ALT [Catalytic activity/Vol] 25 U/L 13-56 [facility] CO2 [Moles/Vol] 24.0 mmol/L 21.0-32.0 [facility] Globulin (S) [Mass/Vol] 2.8 g/dL 2.2-4.2 [facility] Urea nitrogen/Creatinine [Mass ratio] 18.6 mg/mg 10-20 [facility] Laboratory - Hematology and Cell countsOrdered By: Myrna Szymanski on 04-16-2023 MCH (RBC) [Entitic mass] 27.8 pg 27.0-32.0 [facility] MCHC (RBC) [Mass/Vol] 30.7 g/dL 32-36 [facility] Nucleated RBC/100 WBC (Bld) [Ratio] 0 % 0-5 [facility] Platelets (Bld) [#/Vol] 264 10*3/uL 150-450 [facility] Laboratory - Microbiology an d Antimicrobial susceptibilityOrdered By: Arelis Wang on 04-16-2023 SARS-CoV-2 (COVID-19) RNA JORGE+probe Ql (Unsp spec) [facility] No Panel InformationOrdered By: Arelis Wang on 04-16-2023 Estimated Creatinine Clearance Calc 60.94 ml/min [facility] Estimated GFR (MDRD) Amer 67 mL/min >60 [facility] Comment on above: GFR Calc Estimated GFR (MDRD) Non-Af Amer 55 mL/min >60 [facility] Comment on above: Non- GFR Calc Platelet mean volume Randall-Ec ker (Bld) [Entitic vol]Ordered By: Myrna Szymanski on 04-16-2023 Platelet mean volume (Bld) [Entitic vol] 8.7 fL 6.2-12.0 [facility] RBC Auto (Bld) [#/Vol]Ordere d By: Myrna Szymanski on 04-16-2023 RBC (Bld) [#/Vol] 4.18 10*6/uL 4.2-5.[address] [facility] Serum or plasma calcium tressa urement (mass/volume)Ordered By: Arelis Wang on 04-16-2023 Calcium [Mass/Vol] 9.4 mg/dL 8.5-10.1 [facility] Serum or plasma creatinine m easurement (mass/volume)Ordered By: Arelis Wang on 04-16-2023 Creatinine [Mass/Vol] 1.13 mg/dL 0.55-1.02 [facility] Comment on above: The validity of the calculated GFR & GFRAA in patients over 70 years has not been determined. Clinical correlation is essential. Serum or plasma urea nitroge n measurement (mass/volume)Ordered By: Arelis Wang on 04-16-2023 Urea nitrogen [Mass/Vol] 21 mg/dL 7-18 [facility] Thin prep Papanicolaou smear with manual screeningOrdered By: Arelis Wang on 04-16-2023 Thin prep Papanicolaou smear with manual screening 4.0 g/dL 3.2-5.0 [facility] Thin prep Papanicolaou smear with manual screening 17 U/L 15-37 [facility] Thin prep Papanicolaou smear with manual screening 6 5-15 [facility] Absolute lymphocyte countOrd ered By: Myrna Szymanski on 03-25-2023 Lymphocytes Auto (Unsp spec) [#/Vol] 0.95 10*3/uL 0.83-4.51 [facility] Basophil percentageOrdered B y: Myrna Szymanski on 03-25-2023 Basophils/100 WBC (Bld) 0.4 % 0-1 [facility] Eosinophils/100 WBC (Bld) 3.9 % 0-5 [facility] Neutrophils (Bld) [#/Vol] 3.1 10*3/uL 2.0-7.7 [facility] Neutrophils/100 WBC (Bld) 66.8 % 47-70 [facility] WBC (Bld) [#/Vol] 4.6 10*3/uL 4.4-11.0 [facility] Blood erythrocytes count (nu mber/volume)Ordered By: Myrna Szymanski on 03-25-2023 RBC (Bld) [#/Vol] 3.97 10*6/uL 4.2-5.[address] [facility] Blood hemoglobin measurement (mass/volume)Ordered By: Myrna Szymanski on 03-25-2023 Hemoglobin (Bld) [Mass/Vol] 11.5 g/dL 12.0-15.0 [facility] Blood lymphocytes/100 leukoc ytesOrdered By: Myrna Szymanski on 03-25-2023 Lymphocytes/100 WBC (Bld) 20.5 % 19-41 [facility] Blood monocytes/100 leukocyt esOrdered By: [facility] on 03-25-2023 Monocytes/100 WBC (Bld) 8.0 % 0-10 [facility] Blood platelet mean volumeOr dered By: Myrna Szymanski on 03-25-2023 Platelet mean volume (Bld) [Entitic vol] 8.7 fL 6.2-12.0 [facility] Determination of erythrocyte mean corpuscular volume (MCV)Ordered By: Myrna Szymanski on 03-25-2023 MCV (RBC) [Entitic vol] 89.2 fL 81-99 [facility] Hematocrit Auto (Bld) [Volum e fraction]Ordered By: Myrna Szymanski on 03-25-2023 Hematocrit (Bld) [Volume fraction] 35.4 % 37-47 [facility] Laboratory - Hematology and Cell countsOrdered By: Myrna Szymanski on 03-25-2023 Erythrocyte distribution width (RBC) [Entitic vol] 46.6 fL 35.1-43.9 [facility] Erythrocyte distribution width (RBC) [Ratio] 14.4 % 11.6-14.6 [facility] Immature granulocytes/100 WBC (Bld) 0.400 % 0.0-0.9 [facility] Comment on above: IG% - Immature Granu locytes (promyelocytes, myelocytes and metamyelocytes) > 1% indicates that a LEFT SHIFT is Present. 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 Left message to call office. Normal [facility] Basophil percentageOrdered B y: Myrna Szymanski on 01-13-2023 Basophil percentage 2.9 mg/dL 2.5-4.[address] [facility] Bilirubin [Mass/Vol] 0.20 mg/dL 0.20-1.00 [facility] Comment on above: For patients on eltr ombopag therapy, use of [place] TBIL is not recommended. Chloride [Moles/Vol] 113 mmol/L 98-107 [facility] Glucose [Mass/Vol] 138 mg/dL 74-106 [facility] Comment on above: Fasting Glucose resu lt greater than or equal to 126 mg/dL suggests DIABETES MELLITUS per A.D.A. criteria. Potassium [Moles/Vol] 3.8 mmol/L 3.5-5.1 [facility] Protein [Mass/Vol] 7.2 g/dL 6.4-8.2 [facility] Sodium [Moles/Vol] 143 mmol/L 136-145 [facility] Iron measurement (mass/mass) Ordered By: Myrna Szymanski on 01-13-2023 Iron (Unsp spec) [Mass/Mass] 51 ug/dL 50-170 [facility] Laboratory - Chemistry and C hemistry - challengeOrdered By: Myrna Szymanski on 01-13-2023 ALP [Catalytic activity/Vol] 41 U/L 45-117 [facility] ALT [Catalytic activity/Vol] 26 U/L 13-56 [facility] CO2 [Moles/Vol] 24.0 mmol/L 21.0-32.0 [facility] Globulin (S) [Mass/Vol] 3.5 g/dL 2.2-4.2 [facility] Magnesium [Mass/Vol] 2.0 mg/dL 1.6-2.6 [facility] Urea nitrogen/Creatinine [Mass ratio] 17.2 mg/mg 10-20 [facility] No Panel InformationOrdered By: Myrna Szymanski on 01-13-2023 Estimated Creatinine Clearance Calc 59.99 ml/min [facility] Estimated GFR (MDRD) Amer 78 mL/min >60 [facility] Comment on above: GFR Calc Estimated GFR (MDRD) Non-Af Amer 65 mL/min >60 [facility] Comment on above: Non- GFR Calc Total Iron Binding Capacity 420 ug/dL 250-450 [facility] 2.0 mg/dL 1.6-2.6 [facility] PotassiumOrdered By: Myrna Szymanski on 01-13-2023 Potassium [Mass/Vol] 2.9 mg/dL 2.5-4.9 [facility] Serum or plasma albumin tressa urement (mass/volume)Ordered By: Myrna Szymanski on 01-13-2023 Albumin [Mass/Vol] 3.7 g/dL 3.2-5.0 [facility] Serum or plasma albumin/glob ulin mass ratioOrdered By: Myrna Szymanski on 01-13-2023 Albumin/Globulin [Mass ratio] 1.1 {ratio} 0.9-2.4 [facility] Serum or plasma calcium tressa urement (mass/volume)Ordered By: Myrna Szymanski on 01-13-2023 Calcium [Mass/Vol] 9.3 mg/dL 8.5-10.1 [facility] Serum or plasma creatinine m easurement (mass/volume)Ordered By: Myrna Szymanski on 01-13-2023 Creatinine [Mass/Vol] 0.99 mg/dL 0.55-1.02 [facility] Comment on above: The validity of the calculated GFR & GFRAA in patients over 70 years has not been determined. Clinical correlation is essential. Serum or plasma ferritin frank surement (mass/volume)[facility] Ferritin [Mass/Vol] 138 ng/mL 8-[address] [facility] Serum or plasma iron saturat ion measurement (mass fraction)[facility] By[facility] 01-13-2023 Iron saturation [Mass fraction] 12.1 % 15.0-55.0 [facility] Serum or plasma urea nitroge n measurement (mass/volume)Ordered By: [facility] Nessa on 01-13-2023 Urea nitrogen [Mass/Vol] 17 mg/dL 7-18 [facility] Thin prep Papanicolaou smear with manual screeningOrdered By: [facility]-13-[facility]23 Thin prep Papanicolaou smear with manual screening 16 U/L 15-37 [facility] Thin prep Papanicolaou smear with manual screening 6 5-15 [facility] Glucose Glucometer (BldC) [M ass/Vol]Ordered By: Mary Jo Deshpande on 12-25-2022 Glucose [Mass/Vol] 162 mg/dL 74-106 [facility] Comment on above: MANAGEMENT OF PATIEN T CARE PER NURSING PROTOCOL Laboratory - Chemistry and C hemistry - challengeOrdered By: Farhan Dolan on 12-25-2022 HCG ( test) Ql (U) Negative [facility] Comment on above: Very dilute urine sp ecimens, as indicated by a low specificgravity, may not contain investment representative levels of hCG. If is still suspected, a first morning urinespecimen should be collected 48 hours later and tested. Basophil percentageOrdered B y: Arelis Wang on 11-24-2022 Chloride [Moles/Vol] 108 mmol/L 98-107 [facility] Glucose [Mass/Vol] 175 mg/dL 74-106 [facility] Comment on above: Fasting Glucose resu lt greater than or equal to 126 mg/dL suggests DIABETES MELLITUS per A.D.A. criteria. Potassium [Moles/Vol] 3.8 mmol/L 3.5-5.1 [facility] Sodium [Moles/Vol] 138 mmol/L 136-145 [facility] Clostridium difficile detect ion by polymerase chain reactionOrdered By: Myrna Szymanski on 11-24-2022 C. difficile DNA JORGE+probe Ql (Unsp spec) [facility] C. difficile DNA JORGE+probe Ql (Unsp spec) [facility] Laboratory - Chemistry and C hemistry - challengeOrdered By: Arelis Wang on 11-24-2022 CO2 [Moles/Vol] 23.0 mmol/L 21.0-32.0 [facility] Magnesium [Mass/Vol] 1.7 mg/dL 1.6-2.6 [facility] Urea nitrogen/Creatinine [Mass ratio] 14.9 mg/mg 10-20 [facility] No Panel InformationOrdered By: Arelis Wang on 11-24-2022 Estimated Creatinine Clearance Calc 58.80 ml/min [facility] Estimated GFR (MDRD) Amer 76 mL/min >60 [facility] Comment on above: GFR Calc Estimated GFR (MDRD) Non-Af Amer 63 mL/min >60 [facility] Comment on above: Non- GFR Calc Serum or plasma calcium tressa urement (mass/volume)Ordered By: Arelis Wang on 11-24-2022 Calcium [Mass/Vol] 9.2 mg/dL 8.5-10.1 [facility] Serum or plasma creatinine m easurement (mass/volume)Ordered By: Arelis Wang on 11-24-2022 Creatinine [Mass/Vol] 1.01 mg/dL 0.55-1.02 [facility] Comment on above: The validity of the calculated GFR & GFRAA in patients over 70 years has not been determined. Clinical correlation is essential. Serum or plasma urea nitroge n measurement (mass/volume)Ordered By: Arelis Wang on 11-24-2022 Urea nitrogen [Mass/Vol] 15 mg/dL 7-18 [facility] Stool Clostridium difficile detectionOrdered By: Myrna Szymanski on 11-24-2022 C. difficile Ql (Stl) [facility] C. difficile Ql (Stl) [facility] Thin prep Papanicolaou smear with manual screeningOrdered By: Arelis Wang on 11-24-2022 Thin prep Papanicolaou smear with manual screening 7 5-15 [facility] Absolute lymphocyte countOrd ered By: Myrna Szymanski on 11-17-2022 Lymphocytes Auto (Unsp spec) [#/Vol] 2.37 10*3/uL 0.83-4.51 [facility] Basophil percentageOrdered B y: Myrna Szymanski on 11-17-2022 Basophils/100 WBC (Bld) 0.3 % 0-1 [facility] Bilirubin [Mass/Vol] 0.30 mg/dL 0.20-1.00 [facility] Comment on above: For patients on eltr ombopag therapy, use of Dimension [place] TBIL is not recommended. Eosinophils/100 WBC (Bld) 0.0 % 0-5 [facility] Neutrophils (Bld) [#/Vol] 3.6 10*3/uL 2.0-7.7 [facility] Neutrophils/100 WBC (Bld) 54.3 % 47-70 [facility] Protein [Mass/Vol] 6.8 g/dL 6.4-8.2 [facility] WBC (Bld) [#/Vol] 6.7 10*3/uL 4.4-11.0 [facility] Blood erythrocytes count (nu mber/volume)Ordered By: Myrna Szymanski on 11-17-2022 RBC (Bld) [#/Vol] 3.12 10*6/uL 4.2-5.[address] [facility] Blood hemoglobin measurement (mass/volume)Ordered By: Myrna Szymanski on 11-17-2022 Hemoglobin (Bld) [Mass/Vol] 9.6 g/dL 12.0-15.0 [facility] Blood lymphocytes/100 leukoc ytesOrdered By: Myrna Szymanski on 11-17-2022 Lymphocytes/100 WBC (Bld) 35.4 % 19-41 [facility] Blood monocytes/100 leukocyt esOrdered By: Myrna Szymanski on 11-17-2022 Monocytes/100 WBC (Bld) 9.6 % 0-10 [facility] Blood platelet mean volumeOr dered By: Myrna Szymanski on 11-17-2022 Platelet mean volume (Bld) [Entitic vol] 8.6 fL 6.2-12.0 [facility] Determination of erythrocyte mean corpuscular volume (MCV)Ordered By: Myrna Szymanski on 11-17-2022 MCV (RBC) [Entitic vol] 98.7 fL 81-99 [facility] Hematocrit Auto (Bld) [Volum e fraction]Ordered By: Myrna Szymanski on 11-17-2022 Hematocrit (Bld) [Volume fraction] 30.8 % 37-47 [facility] Laboratory - Chemistry and C hemistry - challengeOrdered By: [facility] on 11-17-2022 ALP [Catalytic activity/Vol] 49 U/L 45-117 [facility] ALT [Catalytic activity/Vol] 29 U/L 13-56 [facility] Globulin (S) [Mass/Vol] 2.8 g/dL 2.2-4.2 [facility] Laboratory - Hematology and Cell countsOrdered By: Myrna Szymanski on 11-17-2022 Erythrocyte distribution width (RBC) [Entitic vol] 56.8 fL 35.1-43.9 [facility] Erythrocyte distribution width (RBC) [Ratio] 15.8 % 11.6-14.6 [facility] Immature granulocytes/100 WBC (Bld) 0.400 % 0.0-0.9 [facility] Comment on above: IG% - Immature Granu locytes (promyelocytes, myelocytes and metamyelocytes) > 1% indicates that a LEFT SHIFT is Present. MCH (RBC) [Entitic mass] 30.8 pg 27.0-32.0 [facility] Nucleated RBC/100 WBC (Bld) [Ratio] 0 % 0-5 [facility] MCHC Auto (RBC) [Mass/Vol]Or dered By: Myrna Szymanski on 11-17-2022 MCHC (RBC) [Mass/Vol] 31.2 g/dL 32-36 [facility] Platelets bldOrdered By: Alexander Szymanski on 11-17-2022 Platelets (Bld) [#/Vol] 298 10*3/uL 150-450 [facility] Serum or plasma albumin tressa urement (mass/volume)Ordered By: Myrna Szymanski on 11-17-2022 Albumin [Mass/Vol] 4.0 g/dL 3.2-5.0 [facility] Serum or plasma albumin/glob ulin mass ratioOrdered By: Myrna Nessa on 11-17-2022 Albumin/Globulin [Mass ratio] 1.4 {ratio} 0.9-2.4 [facility] Thin prep Papanicolaou smear with manual screeningOrdered By: Myrna Nessa on 11-17-2022 Thin prep Papanicolaou smear with manual screening 16 U/L 15-37 [facility] Absolute lymphocyte countOrd ered By: Tha Jennifer on 10-12-2022 Lymphocytes Auto (Unsp spec) [#/Vol] 2.32 10*3/uL 0.83-4.51 [facility] Basophil percentageOrdered B y: Tha Rodriguez on 10-12-2022 Basophil percentage 0-5 SEEN /hpf 0-5 [facility] Basophil percentage Not Reportable [facility] Bilirubin [Mass/Vol] 0.20 mg/dL 0.20-1.00 [facility] Comment on above: For patients on eltr ombopag therapy, use of Dimension [place] TBIL is not recommended. Chloride [Moles/Vol] 107 mmol/L 98-107 [facility] Glucose [Mass/Vol] 100 mg/dL 74-106 [facility] Comment on above: Fasting Glucose resu lt from 100 to 125 mg/dL suggests IMPAIRED HOMEOSTASIS per A.D.A. criteria. Neutrophils (Bld) [#/Vol] 4.8 10*3/uL 2.0-7.7 [facility] Potassium [Moles/Vol] 3.8 mmol/L 3.5-5.1 [facility] Protein [Mass/Vol] 6.9 g/dL 6.4-8.2 [facility] Sodium [Moles/Vol] 139 mmol/L 136-145 [facility] WBC (Bld) [#/Vol] 8.6 10*3/uL 4.4-11.0 [facility] Bilirubin Test strip Ql (U)O rdered By: Tha Rodriguez on 10-12-2022 Bilirubin Ql (U) Negative Negative [facility] Blood band neutrophil count as percentage of total leukocytesOrdered By: Tha Rodriguez on 10-12-2022 Band form neutrophils/100 WBC (Bld) 5 % 0-5 [facility] Blood eosinophils/100 leukoc ytesOrdered By: Tha Rodriguez on 10-12-2022 Eosinophils/100 WBC (Bld) 2 % 0-5 [facility] Blood erythrocytes count (nu mber/volume)Ordered By: Tha Rodriguez on 10-12-2022 RBC (Bld) [#/Vol] 3.41 10*6/uL 4.2-5.[address] [facility] Blood hemoglobin measurement (mass/volume)Ordered By: Tha Rodriguez on 10-12-2022 Hemoglobin (Bld) [Mass/Vol] 10.4 g/dL 12.0-15.0 [facility] Blood lymphocytes/100 leukoc ytesOrdered By: Tha Rodriguez on 10-12-2022 Lymphocytes/100 WBC (Bld) 27 % 19-41 [facility] Blood monocytes/100 leukocyt esOrdered By: Tha Rodriguez on 10-12-2022 Monocytes/100 WBC (Bld) 15 % 0-10 [facility] Blood platelet adequacy dete ction by light microscopyOrdered By: Tha Rodriguez on 10-12-2022 Platelets LM Ql (Bld) ADEQUATE ADEQ [facility] Blood platelet mean volumeOr dered By: Tha Rodriguez on 10-12-2022 Platelet mean volume (Bld) [Entitic vol] 9.4 fL 6.2-12.0 [facility] Blood segmented neutrophils/ 100 leukocytesOrdered By: Tha Rodriguez on 10-12-2022 Segmented neutrophils/100 WBC (Bld) 51 % 47-70 [facility] Determination of erythrocyte mean corpuscular volume (MCV)Ordered By: Tha Rodriguez on 10-12-2022 MCV (RBC) [Entitic vol] 95.6 fL 81-99 [facility] Hematocrit Auto (Bld) [Volum e fraction]Ordered By: Tha Rodriguez on 10-12-2022 Hematocrit (Bld) [Volume fraction] 32.6 % 37-47 [facility] Ketones Test strip Ql (U)Ord ered By: Tha Rodriguez on 10-12-2022 Ketones Ql (U) Negative Negative [facility] Laboratory - Chemistry and C hemistry - challengeOrdered By: Tha Rodriguez on 10-12-2022 ALP [Catalytic activity/Vol] 98 U/L 45-117 [facility] ALT [Catalytic activity/Vol] 25 U/L 13-56 [facility] CO2 [Moles/Vol] 26.0 mmol/L 21.0-32.0 [facility] Globulin (S) [Mass/Vol] 3.1 g/dL 2.2-4.2 [facility] Lipase [Catalytic activity/Vol] 25 U/L 13-75 [facility] Comment on above: Please note:LIPASE r evised reference range effective 22. New Lipase methodology. Expected to produce lower values than the previous assay method. NEW Reference Range: 13 - 75 U/L Urea nitrogen/Creatinine [Mass ratio] 10.4 mg/mg 10-20 [facility] Laboratory - Hematology and Cell countsOrdered By: Tha Rodriguez on 10-12-2022 Erythrocyte distribution width (RBC) [Entitic vol] 55.3 fL 35.1-43.9 [facility] Erythrocyte distribution width (RBC) [Ratio] 15.7 % 11.6-14.6 [facility] MCH (RBC) [Entitic mass] 30.5 pg 27.0-32.0 [facility] MCHC Auto (RBC) [Mass/Vol]Or dered By: Tha Rodriguez on 10-12-2022 MCHC (RBC) [Mass/Vol] 31.9 g/dL 32-36 [facility] Mucus LM Ql (Urine sed)Order ed By: Tha Rodriguez on 10-12-2022 Mucus Ql (Urine sed) 0 SEEN /hpf [facility] Nitrite Test strip Ql (U)Ord ered By: Tha Rodriguez on 10-12-2022 Nitrite Ql (U) Negative Negative [facility] No Panel InformationOrdered By: Tha Rodriguez on 10-12-2022 Atypical Lymphocytes ' % [facility] Estimated Creatinine Clearance Calc 51.64 ml/min [facility] Estimated GFR (MDRD) Amer 66 mL/min >60 [facility] Comment on above: GFR Calc Estimated GFR (MDRD) Non-Af Amer 54 mL/min >60 [facility] Comment on above: Non- GFR Calc Troponin I High Sensitivity < 3 pg/mL 3.0-54.0 [facility] Comment on above: Please Note: New Yen t Units and Gender Specific Reference Ranges. For more information see Policy Stat Procedure [place] High Sensitivity Troponin (TNIH) and attachments. Platelets bldOrdered By: Cece Rodriguez on 10-12-2022 Platelets (Bld) [#/Vol] 221 10*3/uL 150-450 [facility] Protein Test strip Ql (U)Ord ered By: Tha Rodriguez on 10-12-2022 Protein Ql (U) 15 mg/dl Negative [facility] RBC morphologyOrdered By: Robson Rodriguez on 10-12-2022 RBC morphology finding Nom (Bld) NORM C+C NORMAL NORM C&C [facility] Review by pathologistOrdered By: Tha Rodriguez on 10-12-2022 Pathologist review Nathan (Unsp spec) [Interp] Seha gilbert [facility] Pathologist review Nathan (Unsp spec) [Interp] Reviewed [facility] Comment on above: Previous reported re sult: Shea gilbert Edited by: RGOOD on 10/14/22:1232Neutrophilic left shift.Normocytic anemia.Clinical correlation necessary.Giancarlo Schwartz M.D. 10/14/22 AMENDED REPORT 10/14/22 1232 PATH REV previously reported as: Shea gilbert Serum or plasma albumin tressa urement (mass/volume)Ordered By: Tha Rodriguez on 10-12-2022 Albumin [Mass/Vol] 3.8 g/dL 3.2-5.0 [facility] Serum or plasma albumin/glob ulin mass ratioOrdered By: Tha Rodriguez on 10-12-2022 Albumin/Globulin [Mass ratio] 1.2 {ratio} 0.9-2.4 [facility] Serum or plasma calcium tressa urement (mass/volume)Ordered By: Tha Rodriguez on 10-12-2022 Calcium [Mass/Vol] 9.4 mg/dL 8.5-10.1 [facility] Serum or plasma creatinine m easurement (mass/volume)Ordered By: Tha Rodriguez on 10-12-2022 Creatinine [Mass/Vol] 1.15 mg/dL 0.55-1.02 [facility] Comment on above: The validity of the calculated GFR & GFRAA in patients over 70 years has not been determined. Clinical correlation is essential. Serum or plasma urea nitroge n measurement (mass/volume)Ordered By: Tha Rodriguez on 10-12-2022 Urea nitrogen [Mass/Vol] 12 mg/dL 7-18 [facility] Squamous epithelial cells de tection in urine sediment by light microscopyOrdered By: Tha Rodriguez on 10-12-2022 Epithelial cells.squamous LM Ql (Urine sed) 0-5 SEEN /hpf 5-10 [facility] Thin prep Papanicolaou smear with manual screeningOrdered By: Tha Rodriguez on 10-12-2022 Thin prep Papanicolaou smear with manual screening 17 U/L 15-37 [facility] Thin prep Papanicolaou smear with manual screening 6 5-15 [facility] Total cell countOrdered By: Tha Rodriguez on 10-12-2022 Cells counted Molgen (Bld/Tiss) [#] 100 MANUAL DIFF [facility] Urine blood detectionOrdered By: Tha Rodriguez on 10-12-2022 RBC Ql (U) Negative Negative [facility] RBC Ql (U) 0 SEEN /hpf 0-5 [facility] Urine clarityOrdered By: Cece Rodriguez on 10-12-2022 Clarity (U) Clear Clear [facility] Urine color determinationOrd ered By: Tha Rodriguez on 10-12-2022 Color (U) Yellow Yellow [facility] Urine glucose detectionOrder ed By: Tha Rodriguez on 10-12-2022 Glucose Ql (U) Normal mg/dl Normal [facility] Urine leukocyte esterase det ection by dipstickOrdered By: Tha Rodriguez on 10-12-2022 Leukocyte esterase Test strip Ql (U) Negative Negative [facility] Urine pHOrdered By: Tha cano on 10-12-2022 pH (U) 6.0 [pH] 5.0 - 8.0 [facility] Urine sediment bacteria coun t by microscopy (number/high power field)Ordered By: Tha Rodriguez on 10-12-2022 Bacteria LM.HPF (Urine sed) [#/Area] 0 /[HPF] None Seen [facility] Urine specific gravity measu rementOrdered By: Tha Rodriguez on 10-12-2022 Specific gravity (U) [Rel density] 1.010 1.002-1.03 0 [facility] Urobilinogen Auto test strip Ql (U)Ordered By: Tha Rodriguez on 10-12-2022 Urobilinogen Ql (U) Normal mg/dl Normal [facility] Absolute lymphocyte countOrd ered By: Myrna Szymanski on 10-06-2022 Lymphocytes Auto (Unsp spec) [#/Vol] 1.37 10*3/uL 0.83-4.51 [facility] Basophil percentageOrdered B y: Myrna Szymanski on 10-06-2022 Basophils/100 WBC (Bld) 0.1 % 0-1 [facility] Bilirubin [Mass/Vol] 0.20 mg/dL 0.20-1.00 [facility] Comment on above: For patients on eltr ombopag therapy, use of Dimension [place] TBIL is not recommended. Chloride [Moles/Vol] 111 mmol/L 98-107 [facility] Eosinophils/100 WBC (Bld) 0.0 % 0-5 [facility] Glucose [Mass/Vol] 230 mg/dL 74-106 [facility] Comment on above: Glucose result great er than or equal to 200 mg/dLsuggests DIABETES MELLITUS per A.D.A. criteria. Neutrophils (Bld) [#/Vol] 6.5 10*3/uL 2.0-7.7 [facility] Neutrophils/100 WBC (Bld) 78.1 % 47-70 [facility] Potassium [Moles/Vol] 3.8 mmol/L 3.5-5.1 [facility] Protein [Mass/Vol] 7.1 g/dL 6.4-8.2 [facility] Sodium [Moles/Vol] 140 mmol/L 136-145 [facility] WBC (Bld) [#/Vol] 8.4 10*3/uL 4.4-11.0 [facility] Blood erythrocytes count (nu mber/volume)Ordered By: Myrna Szymanski on 10-06-2022 RBC (Bld) [#/Vol] 3.29 10*6/uL 4.2-5.[address] [facility] Blood hemoglobin measurement (mass/volume)Ordered By: Myrna Szymanski on 10-06-2022 Hemoglobin (Bld) [Mass/Vol] 10.3 g/dL 12.0-15.0 [facility] Blood lymphocytes/100 leukoc ytesOrdered By: Myrna Szymanski on 10-06-2022 Lymphocytes/100 WBC (Bld) 16.3 % 19-41 [facility] Blood monocytes/100 leukocyt esOrdered By: [facility] on 10-06-2022 Monocytes/100 WBC (Bld) 5.3 % 0-10 [facility] Blood platelet mean volumeOr dered By: Myrna Szymanski on 10-06-2022 Platelet mean volume (Bld) [Entitic vol] 8.3 fL 6.2-12.0 [facility] Determination of erythrocyte mean corpuscular volume (MCV)Ordered By: Myrna Szymanski on 10-06-2022 MCV (RBC) [Entitic vol] 94.2 fL 81-99 [facility] Hematocrit Auto (Bld) [Volum e fraction]Ordered By: Myrna Szymanski on 10-06-2022 Hematocrit (Bld) [Volume fraction] 31.0 % 37-47 [facility] Laboratory - Chemistry and C hemistry - challengeOrdered By: [facility] on 10-06-2022 ALP [Catalytic activity/Vol] 60 U/L 45-117 [facility] ALT [Catalytic activity/Vol] 30 U/L 13-56 [facility] CO2 [Moles/Vol] 22.0 mmol/L 21.0-32.0 [facility] Globulin (S) [Mass/Vol] 3.2 g/dL 2.2-4.2 [facility] Magnesium [Mass/Vol] 1.9 mg/dL 1.6-2.6 [facility] Urea nitrogen/Creatinine [Mass ratio] 21.3 mg/mg 10-20 [facility] Laboratory - Hematology and Cell countsOrdered By: Myrna Szymanski on 10-06-2022 Erythrocyte distribution width (RBC) [Entitic vol] 57.3 fL 35.1-43.9 [facility] Erythrocyte distribution width (RBC) [Ratio] 16.5 % 11.6-14.6 [facility] Immature granulocytes/100 WBC (Bld) 0.200 % 0.0-0.9 [facility] Comment on above: IG% - Immature Granu locytes (promyelocytes, myelocytes and metamyelocytes) > 1% indicates that a LEFT SHIFT is Present. MCH (RBC) [Entitic mass] 31.3 pg 27.0-32.0 [facility] Nucleated RBC/100 WBC (Bld) [Ratio] 0 % 0-5 [facility] MCHC Auto (RBC) [Mass/Vol]Or dered By: Myrna Szymanski on 10-06-2022 MCHC (RBC) [Mass/Vol] 33.2 g/dL 32-36 [facility] No Panel InformationOrdered By: Myrna Szymanski on 10-06-2022 Estimated Creatinine Clearance Calc 63.18 ml/min [facility] Estimated GFR (MDRD) Amer 83 mL/min >60 [facility] Comment on above: GFR Calc Estimated GFR (MDRD) Non-Af Amer 69 mL/min >60 [facility] Comment on above: Non- GFR Calc Platelets bldOrdered By: Alexander Szymanski on 10-06-2022 Platelets (Bld) [#/Vol] 319 10*3/uL 150-450 [facility] Serum or plasma albumin tressa urement (mass/volume)Ordered By: Myrna Szymanski on 10-06-2022 Albumin [Mass/Vol] 3.9 g/dL 3.2-5.0 [facility] Serum or plasma albumin/glob ulin mass ratioOrdered By: Myrna Szymanski on 10-06-2022 Albumin/Globulin [Mass ratio] 1.2 {ratio} 0.9-2.4 [facility] Serum or plasma calcium tressa urement (mass/volume)Ordered By: Myrna Szymanski on 10-06-2022 Calcium [Mass/Vol] 9.2 mg/dL 8.5-10.1 [facility] Serum or plasma creatinine m easurement (mass/volume)Ordered By: Myrna Szymanski on 10-06-2022 Creatinine [Mass/Vol] 0.94 mg/dL 0.55-1.02 [facility] Comment on above: The validity of the calculated GFR & GFRAA in patients over 70 years has not been determined. Clinical correlation is essential. Serum or plasma urea nitroge n measurement (mass/volume)Ordered By: Myrna Szymanski on 10-06-2022 Urea nitrogen [Mass/Vol] 20 mg/dL 7-18 [facility] Thin prep Papanicolaou smear with manual screeningOrdered By: [facility] on 10-06-2022 Thin prep Papanicolaou smear with manual screening 13 U/L 15-37 [facility] Thin prep Papanicolaou smear with manual screening 7 5-15 [facility] Basophil percentageOrdered B y: Myrna Szymanski on 09-15-2022 Basophil percentage 2.6 mg/dL 2.5-4.[address] [facility] Iron measurement (mass/mass) Ordered By: Arelis Wang on 09-08-2022 Iron (Unsp spec) [Mass/Mass] 91 ug/dL 50-170 [facility] No Panel InformationOrdered By: Arelis Wang on 09-08-2022 Total Iron Binding Capacity 392 ug/dL 250-450 [facility] Vitamin B12 Level > 2000 pg/mL High 211-[address] [facility] > 2000 pg/mL High 211-911 [facility] Serum or plasma ferritin frank surement (mass/volume)Ordered By: Arelis Wang on 09-08-2022 Ferritin [Mass/Vol] 364 ng/mL 8-[address] [facility] Serum or plasma folate measu rement (mass/volume)Ordered By: Arelis Wang on 09-08-2022 Folate [Mass/Vol] 17.70 ng/mL 3.1-55.4 [facility] Serum or plasma iron saturat ion measurement (mass fraction)Ordered By: Arelis Wang on 09-08-2022 Iron saturation [Mass fraction] 23.2 % 15.0-55.0 [facility] US PELVIS NON-OB W/TRANSVAGI NALon 08-22-2022 US PELVIS NON-OB W/TRANSVAGINAL ORIGINAL EXAMINATION: TRANSVAGINAL PELVIC ULTRASOUND08/21/2022 8:06 am Ultrasound pelvis, transabdominal and transvaginal COMPARISON: None HISTORY: ORDERING SYSTEM PROVIDED HISTORY: Reason for Exam: hormone positive breast cancer, pre hysterectomy evaluation FINDINGS: The uterus is retroflexed 9.7 x 4.3 x 5.2 cm. No myometrial mass is seen. The endometrium is 11 mm in double wall thickness without an obvious focal lesion.. Right ovary: 2.5 x 1.7 x 2.9 cm. There is a 1.3 cm follicle in the ovary. Left ovary: 3.1 x 1.3 x 2.2 cm. There is a 1.1 cm hemorrhagic cyst in the ovary. There is blood flow in both ovaries. No pelvic free fluid. IMPRESSION: Endometrial thickness is within normal limits. Retroflexed uterus. Physiologic changes in the ovaries. Interpreted by: Will Schwartz MD Preliminary Report By: Will Schwartz MD Electronically signed By Will Schwartz MD Dictated Date: 08/22/2022 4:40:53 PM Prelim Date: 08/22/2022 4:44:08 PM Sign Date: 08/22/2022 4:44:08 PM Ordering Provider: SERVANDO MARINELLI [facility] ([place]) Routine wound cultureOrdered By: Jose Loving on 08-20-2022 Bacteria identified Cx Nom (Wound) No growth aerobically. [facility] Gram stain for investigation of transfusion reactionOrdered By: Jose Loving on 08-19-2022 Microscopic observation Gram stain Nom (Unsp spec) [facility] Gram stain for investigation of transfusion reactionOrdered By: Jose Loving on 08-18-2022 Microscopic observation Gram stain Nom (Unsp spec) [facility] Routine wound cultureOrdered By: Jose Loving on 08-18-2022 Bacteria identified Cx Nom (Wound) No growth aerobically. [facility] Absolute lymphocyte countOrd ered By: Arelis Wang on 08-14-2022 Lymphocytes Auto (Unsp spec) [#/Vol] 1.80 10*3/uL 0.83-4.51 [facility] Comment on above: Previous reported re sult: 3.12 X10^3/uLEdited by: MARLY on 08/14/22:0830 AMENDED REPORT 08/14/22829 Absolute Lymph previously reported as: 3.12 X10^3/uL Basophil percentageOrdered B y: Arelis Wang on 08-14-2022 Basophil percentage OVER SHORT AND DAMAGE CLERK [facility] Comment on above: Previous reported re sult: 73.1 %Edited by: MARLY on 08/14/22:0828 AMENDED REPORT 08/14/22827 NEUT% previously reported as: 73.1 H % Previous reported re sult: 0.1 %Edited by: MARLY on 08/14/22:0828 AMENDED REPORT 08/14/22827 EO% previously reported as: 0.1 % Previous reported re sult: 0.2 %Edited by: MARLY on 08/14/22:827 AMENDED REPORT 08/14/22827 BASO% previously reported as: 0.2 % Bilirubin [Mass/Vol] 0.20 mg/dL 0.20-1.00 [facility] Comment on above: For patients on eltr ombopag therapy, use of Dimension [place] TBIL is not recommended. Chloride [Moles/Vol] 107 mmol/L 98-107 [facility] Glucose [Mass/Vol] 156 mg/dL 74-106 [facility] Comment on above: Fasting Glucose resu lt greater than or equal to 126 mg/dL suggests DIABETES MELLITUS per A.D.A. criteria. Neutrophils (Bld) [#/Vol] 21.5 10*3/uL 2.0-7.7 [facility] Comment on above: Previous reported re sult: 19.5 X10^3/uLEdited by: MARLY on 08/14/22:0829 AMENDED REPORT 08/14/22828 Absolute Neut previously reported as: 19.5 H X10^3/uL Potassium [Moles/Vol] 3.5 mmol/L 3.5-5.1 [facility] Protein [Mass/Vol] 6.6 g/dL 6.4-8.2 [facility] Sodium [Moles/Vol] 139 mmol/L 136-145 [facility] WBC (Bld) [#/Vol] 26.6 10*3/uL 4.4-11.[address] [facility] Blood erythrocytes count (nu mber/volume)Ordered By: Arelis Wang on 08-14-2022 RBC (Bld) [#/Vol] 4.00 10*6/uL 4.2-5.[address] [facility] Blood hemoglobin measurement (mass/volume)Ordered By: Arelis Wang on 08-14-2022 Hemoglobin (Bld) [Mass/Vol] 11.6 g/dL 12.0-15.0 [facility] Blood lymphocytes/100 leukoc ytesOrdered By: Arelis Wang on 08-14-2022 Lymphocytes/100 WBC (Bld) OVER SHORT AND DAMAGE CLERK [facility] Comment on above: Previous reported re sult: 11.7 %Edited by: MARLY on 08/14/22:08 AMENDED REPORT 08/14/22827 LY% previously reported as: 11.7 L % Lymphocytes/100 WBC (Bld) 7 % Low 19-41 [facility] Blood metamyelocytes/100 simeon kocytesOrdered By: Arelis Wang on 08-14-2022 Metamyelocytes/100 WBC (Bld) 5 % High 0-1 [facility] Blood monocytes/100 leukocyt esOrdered By: Arelis Wang on 08-14-2022 Monocytes/100 WBC (Bld) OVER SHORT AND DAMAGE CLERK [facility] Comment on above: Previous reported re sult: 4.9 %Edited by: MARLY on 08/14/22:0828 AMENDED REPORT 08/14/22827 MONO% previously reported as: 4.9 % Blood platelet mean volumeOr dered By: Arelis Wang on 08-14-2022 Platelet mean volume (Bld) [Entitic vol] 9.2 fL 6.2-12.0 [facility] Blood polychromasia detectio n by light microscopyOrdered By: Arelis Wang on 08-14-2022 Polychromasia LM Ql (Bld) 1+ [facility] Blood segmented neutrophils/ 100 leukocytesOrdered By: Arelis Wang on 08-14-2022 Segmented neutrophils/100 WBC (Bld) 81 % High 47-70 [facility] Determination of erythrocyte mean corpuscular volume (MCV)Ordered By: Arelis Wang on 08-14-2022 MCV (RBC) [Entitic vol] 89.5 fL 81-99 [facility] Hematocrit Auto (Bld) [Volum e fraction]Ordered By: Arelis Wang on 08-14-2022 Hematocrit (Bld) [Volume fraction] 35.8 % 37-47 [facility] Laboratory - Chemistry and C hemistry - challengeOrdered By: Arelis Wang on 08-14-2022 ALP [Catalytic activity/Vol] 139 U/L 45-117 [facility] ALT [Catalytic activity/Vol] 30 U/L 13-56 [facility] CO2 [Moles/Vol] 25.0 mmol/L 21.0-32.0 [facility] Globulin (S) [Mass/Vol] 3.0 g/dL 2.2-4.2 [facility] Magnesium [Mass/Vol] 2.0 mg/dL 1.6-2.6 [facility] Urea nitrogen/Creatinine [Mass ratio] 23.1 mg/mg 10-20 [facility] Laboratory - Hematology and Cell countsOrdered By: Arelis Wang on 08-14-2022 Anisocytosis Ql (Bld) 1+ [facility] Erythrocyte distribution width (RBC) [Entitic vol] 44.5 fL 35.1-43.9 [facility] Erythrocyte distribution width (RBC) [Ratio] 13.6 % 11.6-14.6 [facility] MCH (RBC) [Entitic mass] 29.0 pg 27.0-32.0 [facility] Myelocytes/100 WBC (Bld) 7 % High 0-0 [facility] Nucleated RBC/100 WBC (Bld) [Ratio] 0.3 % 0-5 [facility] MCHC Auto (RBC) [Mass/Vol]Or dered By: Arelis Wang on 08-14-2022 MCHC (RBC) [Mass/Vol] 32.4 g/dL 32-36 [facility] No Panel InformationOrdered By: Arelis Wang on 08-14-2022 Estimated Creatinine Clearance Calc 66.02 ml/min [facility] Estimated GFR (MDRD) Amer 91 mL/min >60 [facility] Comment on above: GFR Calc Estimated GFR (MDRD) Non-Af Amer 76 mL/min >60 [facility] Comment on above: Non- GFR Calc Immature Granulocyte % (Auto) OVER SHORT AND DAMAGE CLERK [facility] Comment on above: Previous reported re sult: 10.000 %Edited by: TPHILLIPS on 08/14/22:0829 AMENDED REPORT 08/14/22 0829 IM GRAN % previously reported as: 10.000 H % IG% - Immature Granulocytes (promyelocytes, myelocytes and metamyelocytes) > 1% indicates that a LEFT SHIFT is Present. 7 % High 0-0 [facility] 1+ [facility] Platelets bldOrdered By: Cassy Wang on 08-14-2022 Platelets (Bld) [#/Vol] 237 10*3/uL 150-450 [facility] Review by pathologistOrdered By: Arelis Wang on 08-14-2022 Pathologist review Nathan (Unsp spec) [Interp] Reviewed [facility] Comment on above: Previous reported re sult: May foll Edited by: RGOOD on 08/15/22:1024Neutrophilic leukocytosis with left shift. Clinical correlation necessary.Giancarlo Schwartz M.D. 08/15/22 AMENDED REPORT 08/15/22 1024 PATH REV previously reported as: July ofelia Serum or plasma albumin tressa urement (mass/volume)Ordered By: Arelis Wang on 08-14-2022 Albumin [Mass/Vol] 3.6 g/dL 3.2-5.0 [facility] Serum or plasma albumin/glob ulin mass ratioOrdered By: Arelis Wang on 08-14-2022 Albumin/Globulin [Mass ratio] 1.2 {ratio} 0.9-2.4 [facility] Serum or plasma calcium tressa urement (mass/volume)Ordered By: Arelis Wang on 08-14-2022 Calcium [Mass/Vol] 8.9 mg/dL 8.5-10.1 [facility] Serum or plasma creatinine m easurement (mass/volume)Ordered By: Arelis Wang on 08-14-2022 Creatinine [Mass/Vol] 0.86 mg/dL 0.55-1.02 [facility] Comment on above: The validity of the calculated GFR & GFRAA in patients over 70 years has not been determined. Clinical correlation is essential. Serum or plasma urea nitroge n measurement (mass/volume)Ordered By: Arelis Wang on 08-14-2022 Urea nitrogen [Mass/Vol] 20 mg/dL 7-18 [facility] Thin prep Papanicolaou smear with manual screeningOrdered By: Arelis Wang on 08-14-2022 Thin prep Papanicolaou smear with manual screening 18 U/L 15-37 [facility] Thin prep Papanicolaou smear with manual screening 7 5-15 [facility] Total cell countOrdered By: Arelis Wang on 08-14-2022 Cells counted Molgen (Bld/Tiss) [#] 100 MANUAL DIFF [facility] Toxic leukocyte granulation detectionOrdered By: Arelis Wang on 08-14-2022 Toxic granules LM Ql (Bld) 1+ [facility] Absolute lymphocyte countOrd ered By: Dr. Szymanski on 08-04-2022 Lymphocytes Auto (Unsp spec) [#/Vol] 1.58 10*3/uL 0.83-4.51 [facility] Basophil percentageOrdered B y: Dr. Szymanski on 08-04-2022 Basophils/100 WBC (Bld) 0.2 % 0-1 [facility] Bilirubin [Mass/Vol] 0.30 mg/dL 0.20-1.00 [facility] Comment on above: For patients on eltr ombopag therapy, use of Dimension [place] TBIL is not recommended. Chloride [Moles/Vol] 107 mmol/L 98-107 [facility] Eosinophils/100 WBC (Bld) 0.0 % 0-5 [facility] Glucose [Mass/Vol] 263 mg/dL 74-106 [facility] Comment on above: Glucose result great er than or equal to 200 mg/dLsuggests DIABETES MELLITUS per A.D.A. criteria. Neutrophils (Bld) [#/Vol] 10.3 10*3/uL 2.0-7.7 [facility] Neutrophils/100 WBC (Bld) 82.3 % 47-70 [facility] Potassium [Moles/Vol] 3.9 mmol/L 3.5-5.1 [facility] Protein [Mass/Vol] 7.3 g/dL 6.4-8.2 [facility] Sodium [Moles/Vol] 139 mmol/L 136-145 [facility] WBC (Bld) [#/Vol] 12.5 10*3/uL 4.4-11.[address] [facility] Blood erythrocytes count (nu mber/volume)Ordered By: Dr. Szymanski on 08-04-2022 RBC (Bld) [#/Vol] 4.32 10*6/uL 4.2-5.[address] [facility] Blood hemoglobin measurement (mass/volume)Ordered By: Dr. Szymanski on 08-04-2022 Hemoglobin (Bld) [Mass/Vol] 12.7 g/dL 12.0-15.0 [facility] Blood lymphocytes/100 leukoc ytesOrdered By: Dr. Szymanski on 08-04-2022 Lymphocytes/100 WBC (Bld) 12.6 % 19-41 [facility] Blood monocytes/100 leukocyt esOrdered By: Dr. Szymanski on 08-04-2022 Monocytes/100 WBC (Bld) 4.3 % 0-10 [facility] Blood platelet mean volumeOr dered By: Dr. Szymanski on 08-04-2022 Platelet mean volume (Bld) [Entitic vol] 8.7 fL 6.2-12.0 [facility] Determination of erythrocyte mean corpuscular volume (MCV)Ordered By: Dr. Szymanski on 08-04-2022 MCV (RBC) [Entitic vol] 88.2 fL 81-99 [facility] Hematocrit Auto (Bld) [Volum e fraction]Ordered By: Dr. Szymanski on 08-04-2022 Hematocrit (Bld) [Volume fraction] 38.1 % 37-47 [facility] Laboratory - Chemistry and C hemistry - challengeOrdered By: Dr. Szymanski on 08-04-2022 ALP [Catalytic activity/Vol] 42 U/L 45-117 [facility] ALT [Catalytic activity/Vol] 33 U/L 13-56 [facility] CO2 [Moles/Vol] 22.0 mmol/L 21.0-32.0 [facility] Globulin (S) [Mass/Vol] 3.1 g/dL 2.2-4.2 [facility] Magnesium [Mass/Vol] 2.0 mg/dL 1.6-2.6 [facility] Urea nitrogen/Creatinine [Mass ratio] 15.1 mg/mg 10-20 [facility] Laboratory - Hematology and Cell countsOrdered By: Dr. Szymanski on 08-04-2022 Erythrocyte distribution width (RBC) [Entitic vol] 44.4 fL 35.1-43.9 [facility] Erythrocyte distribution width (RBC) [Ratio] 13.7 % 11.6-14.6 [facility] Immature granulocytes/100 WBC (Bld) 0.600 % 0.0-0.9 [facility] Comment on above: IG% - Immature Granu locytes (promyelocytes, myelocytes and metamyelocytes) > 1% indicates that a LEFT SHIFT is Present. MCH (RBC) [Entitic mass] 29.4 pg 27.0-32.0 [facility] Nucleated RBC/100 WBC (Bld) [Ratio] 0 % 0-5 [facility] MCHC Auto (RBC) [Mass/Vol]Or dered By: Dr. Szymanski on 08-04-2022 MCHC (RBC) [Mass/Vol] 33.3 g/dL 32-36 [facility] No Panel InformationOrdered By: Dr. Szymanski on 08-04-2022 Estimated GFR (MDRD) Amer 72 mL/min >60 [facility] Comment on above: GFR Calc Estimated GFR (MDRD) Non-Af Amer 60 mL/min >60 [facility] Comment on above: Non- GFR Calc Platelets bldOrdered By: Dr. Szymanski on 08-04-2022 Platelets (Bld) [#/Vol] 394 10*3/uL 150-450 [facility] Serum or plasma albumin tressa urement (mass/volume)Ordered By: Dr. Szymanski on 08-04-2022 Albumin [Mass/Vol] 4.2 g/dL 3.2-5.0 [facility] Serum or plasma albumin/glob ulin mass ratioOrdered By: Dr. Szymanski on 08-04-2022 Albumin/Globulin [Mass ratio] 1.4 {ratio} 0.9-2.4 [facility] Serum or plasma calcium tressa urement (mass/volume)Ordered By: Dr. Szymanski on 08-04-2022 Calcium [Mass/Vol] 9.2 mg/dL 8.5-10.1 [facility] Serum or plasma creatinine m easurement (mass/volume)Ordered By: Dr. Szymanski on 08-04-2022 Creatinine [Mass/Vol] 1.06 mg/dL 0.55-1.02 [facility] Comment on above: The validity of the calculated GFR & GFRAA in patients over 70 years has not been determined. Clinical correlation is essential. Serum or plasma urea nitroge n measurement (mass/volume)Ordered By: Dr. Szymanski on 08-04-2022 Urea nitrogen [Mass/Vol] 16 mg/dL 7-18 [facility] Thin prep Papanicolaou smear with manual screeningOrdered By: Dr. Szymanski on 08-04-2022 Thin prep Papanicolaou smear with manual screening 18 U/L 15-37 [facility] Thin prep Papanicolaou smear with manual screening 10 5-15 [facility] Glucose Glucometer (BldC) [M ass/Vol]Ordered By: Dr. Deshpande on 07-31-2022 Glucose [Mass/Vol] 141 mg/dL 74-106 [facility] Comment on above: MANAGEMENT OF PATIEN T CARE PER NURSING PROTOCOL Laboratory - Chemistry and C hemistry - challengeOrdered By: Dr. Lr on 07-31-2022 HCG ( test) Ql (U) Negative [facility] Comment on above: Very dilute urine sp ecimens, as indicated by a low specificgravity, may not contain investment representative levels of hCG. If is still suspected, a first morning urinespecimen should be collected 48 hours later and tested. Absolute lymphocyte countOrd ered By: Dr. Szymanski on 07-15-2022 Lymphocytes Auto (Unsp spec) [#/Vol] 2.72 10*3/uL 0.83-4.51 [facility] Basophil percentageOrdered B y: Dr. Szymanski on 07-15-2022 Basophils/100 WBC (Bld) 0.6 % 0-1 [facility] Bilirubin [Mass/Vol] 0.20 mg/dL 0.20-1.00 [facility] Comment on above: For patients on eltr ombopag therapy, use of Dimension [place] TBIL is not recommended. Chloride [Moles/Vol] 111 mmol/L 98-107 [facility] Eosinophils/100 WBC (Bld) 1.8 % 0-5 [facility] Glucose [Mass/Vol] 154 mg/dL 74-106 [facility] Comment on above: Fasting Glucose resu lt greater than or equal to 126 mg/dL suggests DIABETES MELLITUS per A.D.A. criteria. Neutrophils (Bld) [#/Vol] 5.2 10*3/uL 2.0-7.7 [facility] Neutrophils/100 WBC (Bld) 58.4 % 47-70 [facility] Potassium [Moles/Vol] 3.9 mmol/L 3.5-5.1 [facility] Protein [Mass/Vol] 7.4 g/dL 6.4-8.2 [facility] Sodium [Moles/Vol] 138 mmol/L 136-145 [facility] WBC (Bld) [#/Vol] 8.9 10*3/uL 4.4-11.0 [facility] Basophil percentageOrdered B y: Dr. Deshpande on 07-15-2022 Basophil percentage < 0.9 mg/dL 0.55-1.02 [facility] Blood erythrocytes count (nu mber/volume)Ordered By: Dr. Szymanski on 07-15-2022 RBC (Bld) [#/Vol] 4.40 10*6/uL 4.2-5.[address] [facility] Blood hemoglobin measurement (mass/volume)Ordered By: Dr. Szymanski on 07-15-2022 Hemoglobin (Bld) [Mass/Vol] 12.8 g/dL 12.0-15.0 [facility] Blood lymphocytes/100 leukoc ytesOrdered By: Dr. Szymanski on 07-15-2022 Lymphocytes/100 WBC (Bld) 30.6 % 19-41 [facility] Blood monocytes/100 leukocyt esOrdered By: Dr. Szymanski on 07-15-2022 Monocytes/100 WBC (Bld) 8.2 % 0-10 [facility] Blood platelet mean volumeOr dered By: Dr. Szymanski on 07-15-2022 Platelet mean volume (Bld) [Entitic vol] 8.4 fL 6.2-12.0 [facility] Determination of erythrocyte mean corpuscular volume (MCV)Ordered By: Dr. Szymanski on 07-15-2022 MCV (RBC) [Entitic vol] 88.4 fL 81-99 [facility] Hematocrit Auto (Bld) [Volum e fraction]Ordered By: Dr. Szymanski on 07-15-2022 Hematocrit (Bld) [Volume fraction] 38.9 % 37-47 [facility] Laboratory - Chemistry and C hemistry - challengeOrdered By: Dr. Szymanski on 07-15-2022 ALP [Catalytic activity/Vol] 37 U/L 45-117 [facility] ALT [Catalytic activity/Vol] 35 U/L 13-56 [facility] CO2 [Moles/Vol] 26.0 mmol/L 21.0-32.0 [facility] Globulin (S) [Mass/Vol] 3.3 g/dL 2.2-4.2 [facility] Urea nitrogen/Creatinine [Mass ratio] 19.2 mg/mg 10-20 [facility] Laboratory - Hematology and Cell countsOrdered By: Dr. Szymanski on 07-15-2022 Erythrocyte distribution width (RBC) [Entitic vol] 43.7 fL 35.1-43.9 [facility] Erythrocyte distribution width (RBC) [Ratio] 13.6 % 11.6-14.6 [facility] Immature granulocytes/100 WBC (Bld) 0.400 % 0.0-0.9 [facility] Comment on above: IG% - Immature Granu locytes (promyelocytes, myelocytes and metamyelocytes) > 1% indicates that a LEFT SHIFT is Present. MCH (RBC) [Entitic mass] 29.1 pg 27.0-32.0 [facility] Nucleated RBC/100 WBC (Bld) [Ratio] 0 % 0-5 [facility] MCHC Auto (RBC) [Mass/Vol]Or dered By: Dr. Szymanski on 07-15-2022 MCHC (RBC) [Mass/Vol] 32.9 g/dL 32-36 [facility] No Panel InformationOrdered By: Dr. Szymanski on 07-15-2022 Estimated GFR (MDRD) Amer 78 mL/min >60 [facility] Comment on above: GFR Calc Estimated GFR (MDRD) Non-Af Amer 65 mL/min >60 [facility] Comment on above: Non- GFR Calc No Panel InformationOrdered By: Dr. Deshpande on 07-15-2022 Bedside Estimated GFR (eGFR) > 60.0000 mL/min >60 [facility] Platelets bldOrdered By: Dr. Szymanski on 07-15-2022 Platelets (Bld) [#/Vol] 396 10*3/uL 150-450 [facility] Serum or plasma albumin tressa urement (mass/volume)Ordered By: Dr. Szymanski on 07-15-2022 Albumin [Mass/Vol] 4.1 g/dL 3.2-5.0 [facility] Serum or plasma albumin/glob ulin mass ratioOrdered By: Dr. Szymanski on 07-15-2022 Albumin/Globulin [Mass ratio] 1.2 {ratio} 0.9-2.4 [facility] Serum or plasma calcium tressa urement (mass/volume)Ordered By: Dr. Szymanski on 07-15-2022 Calcium [Mass/Vol] 9.2 mg/dL 8.5-10.1 [facility] Serum or plasma creatinine m easurement (mass/volume)Ordered By: Dr. Szymanski on 07-15-2022 Creatinine [Mass/Vol] 0.99 mg/dL 0.55-1.02 [facility] Comment on above: The validity of the calculated GFR & GFRAA in patients over 70 years has not been determined. Clinical correlation is essential. Serum or plasma urea nitroge n measurement (mass/volume)Ordered By: Dr. Szymanski on 07-15-2022 Urea nitrogen [Mass/Vol] 19 mg/dL 7-18 [facility] Thin prep Papanicolaou smear with manual screeningOrdered By: Dr. Szymanski on 07-15-2022 Thin prep Papanicolaou smear with manual screening 23 U/L 15-37 [facility] Thin prep Papanicolaou smear with manual screening 1 5-15 [facility] Tejada TWAN BILon 2022 [facility] Tejada TWAN FORTINO * * *Final Report* * * DATE OF EXAM: Jun 25 2022 2:32PM ERICA [id number] - [facility] Tejada TWAN FORTINO / PROCEDURE REASON: N63.20 lump on breast * * * * Physician Interpretation * * * * #[id number] - [facility] Tejada TWAN FORTINO BILATERAL DIGITAL DIAGNOSTIC MAMMOGRAM TOMOSYNTHESIS WITH CAD: 06/25/2022 HISTORY: Z12.31 Mammogram Screening /Baseline screening mammogram-Pt reports the following problems-LUMP in the left breast / Screening Mammogram-Patient reports NO symptoms. RESULT: TECHNIQUE: The study was acquired using full field digital technology and interpreted from soft copy. Digital Breast Tomosynthesis (DBT) images were obtained and used to assist in the interpretation of this examination. Current study was also evaluated with a Computer Aided Detection (CAD). No prior exams were available for comparison. The tissue of both breasts is heterogeneously dense. This may lower the sensitivity of mammography. There is a 1.9 cm irregular focal asymmetry in the right breast posterior depth medial region seen on the craniocaudal view only. This is seen in additional views. There also is a 0.9 cm oval focal asymmetry in the right breast at 5 o'clock anterior depth. This is seen in additional views. No other significant masses, calcifications, or other findings are seen in either breast. IMPRESSION: INCOMPLETE: NEEDS ADDITIONAL IMAGING EVALUATION The 1.9 cm irregular focal asymmetry in the right breast posterior depth medial region seen on the craniocaudal view only is indeterminate. An ultrasound is recommended. The 0.9 cm oval focal asymmetry in the right breast at 5 o'clock anterior depth is indeterminate. An ultrasound is recommended. There is no abnormality seen in the left breast to correspond with the palpable abnormality at 11 o'clock, however, ultrasound is recommended. SUMMARY: BILATERAL ULTRASOUNDS WERE PERFORMED TODAY, AND WILL BE DICTATED SEPARATELY. Reece sanderson/kendall:06/25/2022 15:34:16 copy to: Tom SILVA, ph: [phone] Injection Maintenance Technician(s): Taylor Santana, RT(R)(M), [facility] Mammogram BI-RADS: 0 Incomplete: needs additional imaging evaluation Multiple national specialty organizations have released breast cancer screening guidelines for women at average risk for developing breast cancer - guidelines that are based on both evidence and opinion, yet differ on when to start and how often to screen for breast cancer. With representation from Breast Imaging, Internal Medicine, Women's Health, Family Medicine, and Medical/Surgical Oncology, the [facility] has carefully reviewed the data and reached the following consensus: 1) All women should engage in shared decision-making with their providers to decide when to start and how often to screen; 2) All women should have the opportunity to start screening mammography at age 40; 3) For women ages 45-55, we recommend annual screening mammograms; 4) For women ages 55 and over, we support both the transition from an annual to a biennial interval if this aligns more with patient's values and preferences, or continuation with annual screening; 5) All women should discuss with their providers when to stop screening mammograms. [employer] Education Teacher: Kendall Transcribe Date/Time: Jun 25 2022 1:33P Dictated by : REECE VAUGHAN MD This examination was interpreted and the report reviewed and electronically signed by: REECE VAUGHAN MD on Jun 25 2022 3:34PM EST [id number] Normal [facility] US BREAST LTD LTon 06-25 [facility] Zodio BREAST LTD LT * * *Final Report* * * DATE OF EXAM: Jun 25 2022 3:16PM U [id number] - [facility] BREAST LTD LT / PROCEDURE REASON: N63.20 lump * * * * Physician Interpretation * * * * #[id number] - [facility] BREAST LTD LT LIMITED ULTRASOUND OF LEFT BREAST: 06/25/2022 HISTORY: Z12.31 Mammogram Screening. RESULT: No prior exams were available for comparison. Color flow ultrasound of the left breast 11 o'clock region was performed. Loco scale images of the real-time examination were reviewed. There is a benign 0.5 cm x 0.5 cm x 0.3 cm oval lesion in the left breast at 11 o'clock posterior depth 10 cm from the nipple. This correlates as palpated. Color flow imaging demonstrates that there is no vascularity present. Ultrasound demonstrates a hypoechoic oval lesion with a tract to the skin and minimal posterior enhancement with no internal vascular flow consistent with a sebaceous cyst. IMPRESSION: BENIGN FINDING There is no sonographic evidence of malignancy. The 0.5 cm x 0.5 cm x 0.3 cm oval lesion in the left breast is consistent with a sebaceous cyst and is benign. Reece sanderson/kendall:06/25/2022 15:36:27 copy to: Tom SILVA, ph: [phone] Injection Maintenance Technician(s): Nay Pat [facility] Ultrasound BI-RADS: 2 Benign finding Multiple national specialty organizations have released breast cancer screening guidelines for women at average risk for developing breast cancer - guidelines that are based on both evidence and opinion, yet differ on when to start and how often to screen for breast cancer. With representation from Breast Imaging, Internal Medicine, Women's Health, Family Medicine, and Medical/Surgical Oncology, the [facility] has carefully reviewed the data and reached the following consensus: 1) All women should engage in shared decision-making with their providers to decide when to start and how often to screen; 2) All women should have the opportunity to start screening mammography at age 40; 3) For women ages 45-55, we recommend annual screening mammograms; 4) For women ages 55 and over, we support both the transition from an annual to a biennial interval if this aligns more with patient's values and preferences, or continuation with annual screening; 5) All women should discuss with their providers when to stop screening mammograms. [employer] Special Education Teacher: Kendall Transcribe Date/Time: Jun 25 2022 3:05P Dictated by : REECE VAUGHAN MD This examination was interpreted and the report reviewed and electronically signed by: REECE VAUGHAN MD on Jun 25 2022 3:36PM EST [id number] Normal [facility] US BREAST LTD RTon 06-25 [facility] US BREAST LTD RT * * *Final Report* * * DATE OF EXAM: Jun 25 2022 3:16PM DARNELL [id number] - [facility] US BREAST LTD RT / PROCEDURE REASON: r92.8 inconclusive mammogram * * * * Physician Interpretation * * * * #[id number] - [facility] US BREAST LTD RT LIMITED ULTRASOUND OF RIGHT BREAST AND AXILLA: 06/25/2022 HISTORY: R92.8 Inconclusive Mammogram. RESULT: Comparison is made to exams dated: 06/25/2022 ultrasound and 06/25/2022 mammogram - [facility]. Color flow ultrasound of the right breast lower inner quadrant and axilla regions was performed. Loco scale images of the real-time examination were reviewed. There is a 1.8 cm x 1.9 cm x 1.2 cm irregular solid mass with an angular margin in the right breast at 5 o'clock posterior depth 7 cm from the nipple. This irregular solid mass is hypoechoic. This correlates as palpated, with mammography, and breast MRI findings. On ultrasound examination, evalutation, the lesion is palpable. Not previously palpable to the patient. There also is a 0.7 cm x 1 cm x 0.5 cm irregular lesion with an irregular margin in the right breast at 5 o'clock in the retroareolar region 2 cm from the nipple. This irregular lesion is hypoechoic. This correlates with mammography findings. No significant abnormalities were seen sonographically in the right axilla. IMPRESSION: HIGHLY SUGGESTIVE OF MALIGNANCY - APPROPRIATE ACTION SHOULD BE TAKEN The 1.8 cm x 1.9 cm x 1.2 cm irregular solid mass in the right breast at 5 o'clock posterior depth most likely is carcinoma and is highly suggestive of malignancy. An ultrasound guided biopsy is recommended. The 0.7 cm x 1 cm x 0.5 cm irregular lesion in the right breast at 5 o'clock in the retroareolar region is suspicious of malignancy. An ultrasound guided biopsy is recommended. SUMMARY: The recommendations were discussed with the patient. She will schedule the biopsy at her convenience. She will discontinue fish oil, vitamin E and aspirin therapy. Informed consent was obtained. Reece sanderson/kendall:06/25/2022 15:42:40 copy to: Tom SILVA, ph: [phone] Injection Maintenance Technician(s): Nay Pat [facility] Ultrasound BI-RADS: 5 Highly suggestive of malignancy - Appropriate action should be taken Multiple national specialty organizations have released breast cancer screening guidelines for women at average risk for developing breast cancer - guidelines that are based on both evidence and opinion, yet differ on when to start and how often to screen for breast cancer. With representation from Breast Imaging, Internal Medicine, Women's Health, Family Medicine, and Medical/Surgical Oncology, the [facility] has carefully reviewed the data and reached the following consensus: 1) All women should engage in shared decision-making with their providers to decide when to start and how often to screen; 2) All women should have the opportunity to start screening mammography at age 40; 3) For women ages 45-55, we recommend annual screening mammograms; 4) For women ages 55 and over, we support both the transition from an annual to a biennial interval if this aligns more with patient's values and preferences, or continuation with annual screening; 5) All women should discuss with their providers when to stop screening mammograms. Em[employer] Special Education Teacher: Kendall Transcribe Date/Time: Jun 25 2022 2:58P Dictated by : REECE VAUGHAN MD This examination was interpreted and the report reviewed and electronically signed by: REECE VAUGHAN MD on Jun 25 2022 3:42PM EST [id number] Normal [facility] Cervical or vagninal specime n microscopic examination by cytology stain (reported asOrdered By: Dr. Vaughan on 05-08-2022 Cytology report Cyto stain Doc (Cvx/Vag) Comment . [facility] Comment on above: The Pap smear is a s creening test designed to aid in thedetection of premalignant and malignant conditions of theuterine cervix. It is not a diagnostic procedure andshould not be used as the sole means of detecting cervicalcancer. Both false-positive and false-negative reports dooccur. Cervical specimen human rosemary lloma virus (HPV) type 16 DNA detection by probe with sigOrdered By: Dr. Vaughan on 05-08-2022 HPV 16 DNA Probe+sig amp Ql (Cvx) Negative Negative [facility] Detection in cervical specim en of any of human papilloma virus (HPV) 16, 18, 31, 33,Ordered By: Dr. Vaughan on 05-08-2022 HPV 16+18+31+33+35+39+45+51 +52+56+58+59+66+68 DNA Probe+sig amp Ql (Cvx) Positive Negative [facility] Comment on above: This nucleic acid am plification test detects fourteen high-risk HPV types (16,18,31,33,35,39,45,51,52,56,58,59,66,68)without differentiation. Laboratory - CytologyOrdered By: Dr. Vaughan on 05-08-2022 [employer] Teacher Cyto stain Nom (Cvx/Vag) [ID] Comment . [facility] Comment on above: Radha Swenson, Cytotec hnologist (ASCP) Laboratory - Miscellaneous t estsOrdered By: Dr. Vaughan on 05-08-2022 Service comment (Unsp spec) [Interp] Comment . [facility] Comment on above: This liquid based Th inPrep(R) pap test was screened withthe use of an image guided system. Service comment (Unsp spec) [Interp] . . [facility] Liquid-based cerv Pap + CT/G C by JORGE w reflex to high-risk HPV for ASCUSOrdered By: Dr. Vaughan on 05-08-2022 Cytology report Cyto stain.thin prep Doc (Cvx/Vag) Comment . [facility] Comment on above: Criteria met, see HP V Genotype results. No Panel InformationOrdered By: Dr. Vaughan on 05-08-2022 HPV Type 18 Comment Negative Negative [facility] Comment on above: Performed at: [facility] - [address] [id number] Director: Sachi Garcia MD, Phone: [phone] at: =G - [facility] [address] [id number] Director: Sachi Garcia MD, Phone: [phone] Pathology report final diagnosis Narrative Comment . [facility] Comment on above: NEGATIVE FOR INTRAEP ITHELIAL LESION OR MALIGNANCY. Absolute lymphocyte counton 06-11-2021 Lymphocytes Auto (Unsp spec) [#/Vol] 3.05 10*3/uL 0.83-4.51 [facility] Work Phone: Basophil percentageon 2021 Basophils/100 WBC (Bld) 0.7 % 0-1 [facility] Work Phone: Bilirubin [Mass/Vol] 0.20 mg/dL 0.20-1.00 [facility] Work Phone: Comment on above: For patients on eltr ombopag therapy, use of Dimension [place] TBIL is not recommended. Chloride [Moles/Vol] 107 mmol/L 98-107 [facility] Work Phone: [phone] Cholesterol [Mass/Vol] 158 mg/dL <200 [facility] Work Phone: Comment on above: <200 mg/dL Desirable 200-240 mg/dL Borderline >240 mg/dL High Risk Eosinophils/100 WBC (Bld) 3.3 % 0-5 [facility] Work Phone: Glucose [Mass/Vol] 136 mg/dL 74-106 [facility] Work Phone: Comment on above: Fasting Glucose resu lt greater than or equal to 126 mg/dL suggests DIABETES MELLITUS per A.D.A. criteria. Neutrophils (Bld) [#/Vol] 5.4 10*3/uL 2.0-7.7 [facility] Work Phone: Neutrophils/100 WBC (Bld) 55.2 % 47-70 [facility] Work Phone: Potassium [Moles/Vol] 4.0 mmol/L 3.5-5.1 [facility] Work Phone: Protein [Mass/Vol] 7.2 g/dL 6.4-8.2 [facility] Work Phone: Sodium [Moles/Vol] 138 mmol/L 136-145 [facility] Work Phone: Triglyceride [Mass/Vol] 217 mg/dL [facility] Work Phone: Comment on above: The drugs N-Acetylcy steine and Metamizole may falsely depress this assay.Serum Triglycerides Reference Interval Normal <150 mg/dL Borderline high 150 - 199 mg/dL High 200 - 499 mg/dL Very High > or = 500 mg/dL WBC (Bld) [#/Vol] 9.7 10*3/uL 4.4-11.0 [facility] Work Phone: Blood erythrocytes count (nu mber/volume)on 06-11-2021 RBC (Bld) [#/Vol] 4.26 10*6/uL 4.2-5.[address] [facility] Work Phone: Blood hemoglobin measurement (mass/volume)on 06-11-2021 Hemoglobin (Bld) [Mass/Vol] 12.9 g/dL 12.0-15.0 [facility] Work Phone: Blood lymphocytes/100 leukoc yteson 06-11-2021 Lymphocytes/100 WBC (Bld) 31.3 % 19-41 [facility] Work Phone: Blood monocytes/100 leukocyt eson 06-11-2021 Monocytes/100 WBC (Bld) 8.7 % 0-10 [facility] Work Phone: Blood platelet mean volumeon 06-11-2021 Platelet mean volume (Bld) [Entitic vol] 9.1 fL 6.2-12.0 [facility] Work Phone: Determination of erythrocyte mean corpuscular volume (MCV)on 06-11-2021 MCV (RBC) [Entitic vol] 88.7 fL 81-99 [facility] Work Phone: Hematocrit Auto (Bld) [Volum e fraction]on 06-11-2021 Hematocrit (Bld) [Volume fraction] 37.8 % 37-47 [facility] Work Phone: Laboratory - Chemistry and C hemistry - challengeon 06-11-2021 ALP [Catalytic activity/Vol] 38 U/L 45-117 [facility] Work Phone: ALT [Catalytic activity/Vol] 34 U/L 13-56 [facility] Work Phone: CO2 [Moles/Vol] 26.0 mmol/L 21.0-32.0 [facility] Work Phone: Cobalamin (Vitamin B12) [Mass/Vol] 511 pg/mL 211-911 [facility] Work Phone: Globulin (S) [Mass/Vol] 3.1 g/dL 2.2-4.2 [facility] Work Phone: Urea nitrogen/Creatinine [Mass ratio] 18.5 mg/mg 10-20 [facility] Work Phone: Laboratory - Hematology and Cell countson 06-11-2021 Erythrocyte distribution width (RBC) [Entitic vol] 43.2 fL 35.1-43.9 [facility] Work Phone: Erythrocyte distribution width (RBC) [Ratio] 13.4 % 11.6-14.6 [facility] Work Phone: Immature granulocytes/100 WBC (Bld) 0.800 % 0.0-0.9 [facility] Work Phone: Comment on above: IG% - Immature Granu locytes (promyelocytes, myelocytes and metamyelocytes) > 1% indicates that a LEFT SHIFT is Present. MCH (RBC) [Entitic mass] 30.3 pg 27.0-32.0 [facility] Work Phone: Nucleated RBC/100 WBC (Bld) [Ratio] 0 % 0-5 [facility] Work Phone: MCHC Auto (RBC) [Mass/Vol]on 06-11-2021 MCHC (RBC) [Mass/Vol] 34.1 g/dL 32-36 [facility] Work Phone: No Panel Informationon 06-11 Estimated GFR (MDRD) Amer 85 mL/min >60 [facility] Work Phone: Comment on above: GFR Calc Estimated GFR (MDRD) Non-Af Amer 71 mL/min >60 [facility] Work Phone: Comment on above: Non- GFR Calc Thyroid Stimulating Hormone (TSH) 1.12 uIU/mL 0.358-3.74 [facility] Work Phone: Platelets bldon 06-11-2021 Platelets (Bld) [#/Vol] 378 10*3/uL 150-450 [facility] Work Phone: Serum Racehle Lou virus cap shantell IgG antibody assay (units/volume)on 06-11-2021 EBV capsid IgG Qn (S) [arb'U]/mL [facility] Work Phone: Comment on above: Negative <18.0 Equiv ocal 18.0 - 21.9 Positive >21.9 Serum Rachele Lou virus cap shantell IgM antibody assay (units/volume)on 06-11-2021 EBV capsid IgM Qn (S) [arb'U]/mL [facility] Work Phone: Comment on above: Negative <36.0 Equiv ocal 36.0 - 43.9 Positive >43.9 Serum Rachele Lou virus nuc lear IgG antibody assay (units/volume)on 06-11-2021 EBV nuclear IgG Qn (S) 148.0 U/mL [facility] Work Phone: Comment on above: Negative <18.0 Equiv ocal 18.0 - 21.9 Positive >21.9 Serum or plasma albumin tressa urement (mass/volume)on 06-11-2021 Albumin [Mass/Vol] 4.1 g/dL 3.2-5.0 [facility] Work Phone: Serum or plasma albumin/glob ulin mass ratioon 06-11-2021 Albumin/Globulin [Mass ratio] 1.3 {ratio} 0.9-2.4 [facility] Work Phone: Serum or plasma calcitriol m easurement (mass/volume)on 06-11-2021 1,25-dihydroxyvitamin D3 [Mass/Vol] 65.9 pg/mL [facility] Work Phone: Comment on above: Performed at: - [address] [id number] Director: Abbey Medel MD, Phone: [phone] Serum or plasma calcium tressa urement (mass/volume)on 06-11-2021 Calcium [Mass/Vol] 9.3 mg/dL 8.5-10.1 [facility] Work Phone: Serum or plasma cholesterol in HDL measurement (mass/volume)on 06-11-2021 Cholesterol in HDL [Mass/Vol] 67 mg/dL [facility] Work Phone: Comment on above: The drugs N-Acetylcy steine and Metamizole may falsely depress this assay. Reference Range HDL <40 mg/dL Low HDL Cholesterol HDL >or= 60 mg/dL High HDL Cholesterol Serum or plasma cholesterol in VLDL measurement (mass/volume)on 06-11-2021 Cholesterol in VLDL [Mass/Vol] 43 mg/dL 5-40 [facility] Work Phone: Serum or plasma creatinine m easurement (mass/volume)on 06-11-2021 Creatinine [Mass/Vol] 0.92 mg/dL 0.55-1.02 [facility] Work Phone: Comment on above: The validity of the calculated GFR & GFRAA in patients over 70 years has not been determined. Clinical correlation is essential. Serum or plasma low density lipoprotein (LDL) cholesterol measurement (mass/volume)on 06-11-2021 Cholesterol in LDL [Mass/Vol] 48 mg/dL 0-130 [facility] Work Phone: Serum or plasma urea nitroge n measurement (mass/volume)on 06-11-2021 Urea nitrogen [Mass/Vol] 17 mg/dL 7-18 [facility] Work Phone: Thin prep Papanicolaou smear with manual screeningon 06-11-2021 Thin prep Papanicolaou smear with manual screening 21 U/L 15-37 [facility] Work Phone: Thin prep Papanicolaou smear with manual screening 5 5-15 [facility] Work Phone: Thin prep Papanicolaou smear with manual screening Comment [facility] Work Phone: Comment on above: EBV Interpretation C Thuan: Antibody Present + Antibody Absent -Interpretation VCA-IgM VCA-IgG EBNA-IgGNo previous infection/ - - -SusceptiblePrimary infection (new + + -or recent)Past Infection +or- + +See comment below* + - -*Results indicate infection with EBV at some time however cannot predict the timing of the infection since antibodies to EBNA usually develop after primary infection or, alternatively, approximately 5-10% of patients with EBV never develop antibodies to EBNA.Performed at: [address], [place], [place] [id number] Director: Sarmad Martinez PhD, Phone: [phone] Whole blood hemoglobin A1c/t otal hemoglobin ratio (mass fraction)on 06-11-2021 HbA1c (Bld) [Mass fraction] 6.8 % 3.8-5.6 [facility] Work Phone: Comment on above: Normal < 5.7 % Predi abetic 5.7 - 6.4 % Diabetic >or= 6.5 % Please note range changes. Laboratory - Hematology and Cell countson 02-28-2021 HbA1c (Bld) [Mass fraction] 6.8 % [facility] Work Phone: CT Head WO ContrastOrdered B y: Ambika Jones on 11-21-2020 Patient Name: ISABELLE REECE Computed Tomography ACCESSION EXAM DATE/TIME PROCEDURE ORDERING PROVIDER [id number] 11/21/2020 21:[address] Head or Brain w/o MD JONES BETSY Contrast CPT code 88002 Reason For Exam (CT Head or Brain w/o Contrast) headache, history of migraines Report CT BRAIN WITHOUT CONTRAST CLINICAL INDICATION: headache, history of migraines TECHNIQUE: CT scan of the brain without IV contrast. Multiplanar reformations. COMPARISON: None. FINDINGS: No apparent mass or mass effect, hemorrhage, midline shift or hydrocephalus. No evidence of acute cortical infarct. No abnormal, extra-axial fluid or air collection. Osseous calvarium grossly intact. IMPRESSION: 1. No acute intracranial findings. Report Dictated on --- Final --- Dictating Physician: MD JORDAN WENDELL Signed Date and Time: 11/21/2020 9:45 pm Signed by: MD JORDAN WENDELL Transcribed Date and Time: 11/21/2020 9:46 [facility] Work Phone: Oral, [facility] Incoming Radiology Results From [facility] - 11/21/2020 9:46 PM EDT Patient Name: ISABELLE NAGY Computed Tomography ACCESSION EXAM DATE/TIME PROCEDURE ORDERING PROVIDER [id number] 11/21/2020 21:[address] Head or Brain w/o MD LUIS AMBIKA Contrast CPT code 53829 Reason For Exam (CT Head or Brain w/o Contrast) headache, history of migraines Report CT BRAIN WITHOUT CONTRAST CLINICAL INDICATION: headache, history of migraines TECHNIQUE: CT scan of the brain without IV contrast. Multiplanar reformations. COMPARISON: None. FINDINGS: No apparent mass or mass effect, hemorrhage, midline shift or hydrocephalus. No evidence of acute cortical infarct. No abnormal, extra-axial fluid or air collection. Osseous calvarium grossly intact. IMPRESSION: 1. No acute intracranial findings. Report Dictated on Workstation: [id number] --- Final --- Dictating Physician: MD JORDAN WENDELL Signed Date and Time: 11/21/2020 9:45 pm Signed by: MD JORDAN WENDELL Transcribed Date and Time: 11/21/2020 9:46 [facility] Work Phone: [facility] Work Phone: CT Head or Brain w/o Contras ton 11-21-2020 CT Head or Brain w/o Contrast [facility]: [id number] ACCESSION EXAM DATE/TIME PROCEDURE ORDERING PROVIDER [id number] 11/21/2020 21:[address] Head or Brain w/o MD LUIS AMBIKA Contrast CPT code 10073 Reason For Exam (CT Head or Brain w/o Contrast) headache, history of migraines Report CT BRAIN WITHOUT CONTRAST CLINICAL INDICATION: headache, history of migraines TECHNIQUE: CT scan of the brain without IV contrast. Multiplanar reformations. COMPARISON: None. FINDINGS: No apparent mass or mass effect, hemorrhage, midline shift or hydrocephalus. No evidence of acute cortical infarct. No abnormal, extra-axial fluid or air collection. Osseous calvarium grossly intact. IMPRESSION: 1. No acute intracranial findings. Report Dictated on Workstation: [id number] Final Dictating Physician: MD JORDAN WENDELL Signed Date and Time: 11/21/2020 9:45 pm Signed by: MD JORDAN WENDELL Transcribed Date and Time: 11/21/2020 9:46 Normal [facility] Vital Signs Date Time Vital Sign Value Performing Clinician Facility 12-29-2024 10:00-0400 Body height 160.02 cm Jose Loving OVER [employer] AND DAMAGE CLERK-C Work Phone: [facility] 12-29-2024 10:00-0400 Body mass index (BMI) [Ratio] 24.3 kg/m2 Jose Loving [employer] DAMAGE CLERK-C Work Phone: [facility] 12-29-2024 10:00-0400 Body temperature 96.6 [degF] Jose Loving [employer] AND DAMAGE CLERK-C Work Phone: [facility] 12-29-2024 10:00-0400 Body weight 62.14 kg Jose Loving [employer] AND DAMAGE CLERK-C Work Phone: [facility] 12-29-2024 10:00-0400 Diastolic blood pressure 66 mm[Hg] Jose Loving [employer] AND DAMAGE CLERK-C Work Phone: [facility] 12-29-2024 10:00-0400 Heart rate 89 /min Jose Loving [employer] AND DAMAGE CLERK-C Work Phone: [facility] 12-29-2024 10:00-0400 Respiratory rate 18 /min Jose Loving [employer] AND DAMAGE CLERK-C Work Phone: [facility] 12-29-2024 10:00-0400 SaO2% (BldA) [Mass fraction] 99 % Jose Loving [employer] DAMAGE CLERK-C Work Phone: [facility] 12-29-2024 10:00-0400 Systolic blood pressure 96 mm[Hg] Jose Loving [employer] AND DAMAGE CLERK-C Work Phone: [facility] 12-23-2024 08:26-0400 Body height 160.02 cm Jose Loving [employer] AND DAMAGE CLERK-C Work Phone: [facility] 12-23-2024 08:26-0400 Body mass index (BMI) [Ratio] 24.4 kg/m2 Jose Loving [employer] DAMAGE CLERK-C Work Phone: [facility] 12-23-2024 08:26-0400 Body weight 62.59 kg Josetom Loving [employer] AND DAMAGE CLERK-C Work Phone: [facility] 12-23-2024 08:26-0400 Diastolic blood pressure 69 mm[Hg] Jose Loving [employer] AND DAMAGE CLERK-C Work Phone: [facility] 12-23-2024 08:26-0400 Heart rate 86 /min Josetom Loving [employer] AND DAMAGE CLERK-C Work Phone: [facility] 12-23-2024 08:26-0400 Respiratory rate 17 /min Josetom Loving [employer] AND DAMAGE CLERK-C Work Phone: [facility] 12-23-2024 08:26-0400 SaO2% (BldA) [Mass fraction] 100 % Josetom Loving [employer] AND DAMAGE CLERK-C Work Phone: [facility] 12-23-2024 08:26-0400 Systolic blood pressure 102 mm[Hg] Jose Loving [employer] AND DAMAGE CLERK-C Work Phone: [facility] 12-05-2024 15:49-0400 Body mass index (BMI) [Ratio] 24 kg/m2 Jose Loving [employer] AND DAMAGE CLERK-C Work Phone: [facility] 12-05-2024 15:49-0400 Body temperature 97.9 [degF] Jose Loving [employer] AND DAMAGE CLERK-C Work Phone: [facility] 12-05-2024 15:49-0400 Body weight 61.68 kg Jose Loving [employer] AND DAMAGE CLERK-C Work Phone: [facility] 12-05-2024 15:49-0400 Diastolic blood pressure 60 mm[Hg] Jose Loving [employer] AND DAMAGE CLERK-C Work Phone: [facility] 12-05-2024 15:49-0400 Heart rate 93 /min Jsoetom Loving [employer] AND DAMAGE CLERK-C Work Phone: [facility] 12-05-2024 15:49-0400 Respiratory rate 18 /min Jose Loving [employer] AND DAMAGE CLERK-C Work Phone: [facility] 12-05-2024 15:49-0400 SaO2% (BldA) [Mass fraction] 99 % Jose Loving [employer] AND DAMAGE CLERK-C Work Phone: [facility] 12-05-2024 15:49-0400 Systolic blood pressure 104 mm[Hg] Josetom Loving [employer] AND DAMAGE CLERK-C Work Phone: [facility] 09-15-2024 13:42-0400 Body height 160.02 cm Josetom Loving [employer] AND DAMAGE CLERK-C Work Phone: [facility] 09-15-2024 13:42-0400 Body mass index (BMI) [Ratio] 25.1 kg/m2 Josetom Loving [employer] DAMAGE CLERK-C Work Phone: [facility] 09-15-2024 13:42-0400 Body weight 64.41 kg Josetom Loving [employer] AND DAMAGE CLERK-C Work Phone: [facility] 09-15-2024 13:42-0400 Diastolic blood pressure 70 mm[Hg] Josetom Loving [employer] AND DAMAGE CLERK-C Work Phone: [facility] 09-15-2024 13:42-0400 Heart rate 107 /min Jose Loving [employer] AND DAMAGE CLERK-C Work Phone: [facility] 09-15-2024 13:42-0400 SaO2% (BldA) [Mass fraction] 97 % Josetom Loving [employer] AND DAMAGE CLERK-C Work Phone: [facility] 09-15-2024 13:42-0400 Systolic blood pressure 101 mm[Hg] Jose Loving OVER [employer] AND DAMAGE CLERK-C Work Phone: [facility] 09-15-2024 10:00-0400 Body height 160.02 cm Jose Loving [employer] AND DAMAGE CLERK-C Work Phone: [facility] 09-15-2024 10:00-0400 Body mass index (BMI) [Ratio] 25.3 kg/m2 Josetom Loving [employer] AND DAMAGE CLERK-C Work Phone: [facility] 09-15-2024 10:00-0400 Body temperature 98.3 [degF] Jose Loving [employer] AND DAMAGE CLERK-C Work Phone: [facility] 09-15-2024 10:00-0400 Body weight 64.86 kg Jose Loving [employer] AND DAMAGE CLERK-C Work Phone: [facility] 09-15-2024 10:00-0400 Diastolic blood pressure 65 mm[Hg] Jose Loving OVER [employer] AND DAMAGE CLERK-C Work Phone: [facility] 09-15-2024 10:00-0400 Heart rate 74 /min Josetom Loving [employer] AND DAMAGE CLERK-C Work Phone: [facility] 09-15-2024 10:00-0400 Respiratory rate 16 /min Josetom Loving [employer] AND DAMAGE CLERK-C Work Phone: [facility] 09-15-2024 10:00-0400 SaO2% (BldA) [Mass fraction] 99 % Jose Loving [employer] AND DAMAGE CLERK-C Work Phone: [facility] 09-15-2024 10:00-0400 Systolic blood pressure 95 mm[Hg] Jose Loving [employer] AND DAMAGE CLERK-C Work Phone: [facility] 06-26-2024 20:15-0400 Body temperature 98.2 [degF] Jose Loving [employer] AND DAMAGE CLERK-C Work Phone: [facility] 06-26-2024 20:15-0400 Diastolic blood pressure 78 mm[Hg] Jose Loving [employer] AND DAMAGE CLERK-C Work Phone: [facility] 06-26-2024 20:15-0400 Heart rate 78 /min Jose Loving [employer] AND DAMAGE CLERK-C Work Phone: [facility] 06-26-2024 20:15-0400 Respiratory rate 16 /min Josetom Loving [employer] AND DAMAGE CLERK-C Work Phone: [facility] 06-26-2024 20:15-0400 SaO2% (BldA) [Mass fraction] 97 % Jose Loving [employer] AND DAMAGE CLERK-C Work Phone: [facility] 06-26-2024 20:15-0400 Systolic blood pressure 128 mm[Hg] Jose Loving [employer] AND DAMAGE CLERK-C Work Phone: [facility] 06-26-2024 16:27-0400 Body height 160.02 cm Jose Loving [employer] AND DAMAGE CLERK-C Work Phone: [facility] 06-26-2024 16:27-0400 Body mass index (BMI) [Ratio] 27.1 kg/m2 Jose Loving [employer] AND DAMAGE CLERK-C Work Phone: [facility] 06-26-2024 16:27-0400 Body weight 69.53 kg Jose Loving [employer] AND DAMAGE CLERK-C Work Phone: [facility] 06-22-2024 08:18-0400 Body mass index (BMI) [Ratio] 27.6 kg/m2 Jose Loving [employer] DAMAGE CLERK-C Work Phone: [facility] 06-22-2024 08:18-0400 Body weight 70.93 kg Jose Loving [employer] AND DAMAGE CLERK-C Work Phone: [facility] 06-22-2024 08:18-0400 Diastolic blood pressure 80 mm[Hg] Jose Loving [employer] AND DAMAGE CLERK-C Work Phone: [facility] 06-22-2024 08:18-0400 Heart rate 77 /min Jose Loving [employer] AND DAMAGE CLERK-C Work Phone: [facility] 06-22-2024 08:18-0400 SaO2% (BldA) [Mass fraction] 97 % Jose Loving [employer] AND DAMAGE CLERK-C Work Phone: [facility] 06-22-2024 08:18-0400 Systolic blood pressure 117 mm[Hg] Jose Loving [employer] AND DAMAGE CLERK-C Work Phone: [facility] 06-06-2024 19:52-0400 Body mass index (BMI) [Ratio] 28.5 kg/m2 Jose Loving [employer] DAMAGE CLERK-C Work Phone: [facility] 06-06-2024 19:52-0400 Body temperature 97.5 [degF] Jose Loving [employer]ORT AND DAMAGE CLERK-C Work Phone: [facility] 06-06-2024 19:52-0400 Body weight 73.02 kg Jose Loving [employer] AND DAMAGE CLERK-C Work Phone: [facility] 06-06-2024 19:52-0400 Diastolic blood pressure 70 mm[Hg] Jose Loving [employer] AND DAMAGE CLERK-C Work Phone: [facility] 06-06-2024 19:52-0400 Heart rate 88 /min Jose Loving [employer] AND DAMAGE CLERK-C Work Phone: [facility] 06-06-2024 19:52-0400 Respiratory rate 18 /min Jose Loving [employer] AND DAMAGE CLERK-C Work Phone: [facility] 06-06-2024 19:52-0400 SaO2% (BldA) [Mass fraction] 98 % Jose Loving [employer] AND DAMAGE CLERK-C Work Phone: [facility] 06-06-2024 19:52-0400 Systolic blood pressure 116 mm[Hg] Jose Loving [employer]ORT AND DAMAGE CLERK-C Work Phone: [facility] 05-16-2024 11:20-0500 Body mass index (BMI) [Ratio] 28.5 kg/m2 Jose Loving [employer]ORT AND DAMAGE CLERK-C Work Phone: [facility] 05-16-2024 11:20-0500 Body temperature 97.3 [degF] Jose Loving [employer] AND DAMAGE CLERK-C Work Phone: [facility] 05-16-2024 11:20-0500 Body weight 73.11 kg Jose Loving [employer] AND DAMAGE CLERK-C Work Phone: [facility] 05-16-2024 11:20-0500 Diastolic blood pressure 80 mm[Hg] Jose Loving [employer] AND DAMAGE CLERK-C Work Phone: [facility] 05-16-2024 11:20-0500 Heart rate 78 /min Jose Loving [employer] AND DAMAGE CLERK-C Work Phone: [facility] 05-16-2024 11:20-0500 Respiratory rate 18 /min Jose Loving [employer] AND DAMAGE CLERK-C Work Phone: [facility] 05-16-2024 11:20-0500 SaO2% (BldA) [Mass fraction] 98 % Jose Loving [employer] AND DAMAGE CLERK-C Work Phone: [facility] 05-16-2024 11:20-0500 Systolic blood pressure 115 mm[Hg] Jose Loving [employer] AND DAMAGE CLERK-C Work Phone: [facility] 04-18-2024 14:32-0500 Body mass index (BMI) [Ratio] 28.3 kg/m2 Jose oLving [employer] DAMAGE CLERK-C Work Phone: [facility] 04-18-2024 14:32-0500 Body temperature 97.8 [degF] Josetom Loving [employer] AND DAMAGE CLERK-C Work Phone: [facility] 04-18-2024 14:32-0500 Body weight 72.65 kg Jose Loving [employer] AND DAMAGE CLERK-C Work Phone: [facility] 04-18-2024 14:32-0500 Diastolic blood pressure 72 mm[Hg] Jose Loving [employer] AND DAMAGE CLERK-C Work Phone: [facility] 04-18-2024 14:32-0500 Heart rate 93 /min Josetom Loving [employer] AND DAMAGE CLERK-C Work Phone: [facility] 04-18-2024 14:32-0500 Respiratory rate 16 /min Jose Loving [employer] AND DAMAGE CLERK-C Work Phone: [facility] 04-18-2024 14:32-0500 SaO2% (BldA) [Mass fraction] 95 % Jose Loving [employer] AND DAMAGE CLERK-C Work Phone: [facility] 04-18-2024 14:32-0500 Systolic blood pressure 108 mm[Hg] Jose Loving [employer] AND DAMAGE CLERK-C Work Phone: [facility] 03-18-2024 09:04-0500 Body temperature 98.2 [degF] Jose Loving [employer] AND DAMAGE CLERK-C Work Phone: [facility] 03-18-2024 09:04-0500 Body weight 72.12 kg Jose Loving [employer] AND DAMAGE CLERK-C Work Phone: [facility] 03-18-2024 09:04-0500 Diastolic blood pressure 81 mm[Hg] Jose Loving [employer] AND DAMAGE CLERK-C Work Phone: [facility] 03-18-2024 09:04-0500 Heart rate 87 /min Jose Loving [employer] AND DAMAGE CLERK-C Work Phone: [facility] 03-18-2024 09:04-0500 Respiratory rate 16 /min Jose Loving [employer] AND DAMAGE CLERK-C Work Phone: [facility] 03-18-2024 09:04-0500 SaO2% (BldA) [Mass fraction] 98 % Jose Loving [employer] AND DAMAGE CLERK-C Work Phone: [facility] 03-18-2024 09:04-0500 Systolic blood pressure 125 mm[Hg] Jose Loving [employer] AND DAMAGE CLERK-C Work Phone: [facility] 03-14-2024 08:40-0500 Body mass index (BMI) [Ratio] 28.1 kg/m2 Jose Loving [employer] AND DAMAGE CLERK-C Work Phone: [facility] 03-14-2024 08:40-0500 Body weight 72.12 kg Jose Loving [employer] AND DAMAGE CLERK-C Work Phone: [facility] 03-14-2024 08:40-0500 Diastolic blood pressure 78 mm[Hg] Jose Loving [employer] AND DAMAGE CLERK-C Work Phone: [facility] 03-14-2024 08:40-0500 Systolic blood pressure 113 mm[Hg] Jose Loving [employer] AND DAMAGE CLERK-C Work Phone: [facility] 02-29-2024 09:11-0500 Body mass index (BMI) [Ratio] 29 kg/m2 Jose Loving [employer] AND DAMAGE CLERK-C Work Phone: [facility] 02-29-2024 09:11-0500 Body temperature 98 [degF] Jose Loving [employer] AND DAMAGE CLERK-C Work Phone: [facility] 02-29-2024 09:11-0500 Body weight 74.38 kg Jose Loving [employer] AND DAMAGE CLERK-C Work Phone: [facility] 02-29-2024 09:11-0500 Diastolic blood pressure 75 mm[Hg] Josetom Loving [employer] AND DAMAGE CLERK-C Work Phone: [facility] 02-29-2024 09:11-0500 Heart rate 76 /min Jose Loving [employer] AND DAMAGE CLERK-C Work Phone: [facility] 02-29-2024 09:11-0500 Respiratory rate 18 /min Jose Loving [employer] AND DAMAGE CLERK-C Work Phone: [facility] 02-29-2024 09:11-0500 SaO2% (BldA) [Mass fraction] 94 % Jose Loving [employer] AND DAMAGE CLERK-C Work Phone: [facility] 02-29-2024 09:11-0500 Systolic blood pressure 111 mm[Hg] Jose Loving [employer] AND DAMAGE CLERK-C Work Phone: [facility] 09-10-2023 10:47-0400 Body temperature 98.2 [degF] Jose Loving [employer]ORT AND DAMAGE CLERK-C Work Phone: [facility] 09-10-2023 10:47-0400 Diastolic blood pressure 89 mm[Hg] Jose Loving [employer] AND DAMAGE CLERK-C Work Phone: [facility] 09-10-2023 10:47-0400 Heart rate 99 /min Jose Loving [employer] AND DAMAGE CLERK-C Work Phone: [facility] 09-10-2023 10:47-0400 Respiratory rate 16 /min Jose Loving [employer] AND DAMAGE CLERK-C Work Phone: [facility] 09-10-2023 10:47-0400 SaO2% (BldA) [Mass fraction] 98 % Jose Loving [employer] AND DAMAGE CLERK-C Work Phone: [facility] 09-10-2023 10:47-0400 Systolic blood pressure 124 mm[Hg] Jose Loving [employer] SHORT AND DAMAGE CLERK-C Work Phone: [facility] 07-30-2023 10:56-0400 Body height 160.02 cm [employer] AND DAMAGE CLERK-C Jose Loving [employer]ORT AND DAMAGE CLERK Work Phone: [facility] 07-30-2023 10:56-0400 Body mass index (BMI) [Ratio] 28.9 kg/m2 [employer] DAMAGE CLERK-C Jose Loving [employer] AND DAMAGE CLERK Work Phone: [facility] 07-30-2023 10:56-0400 Body temperature 98 [degF] [employer] DAMAGE CLERK-C Jose Loving [employer] AND DAMAGE CLERK Work Phone: [facility] 07-30-2023 10:56-0400 Body weight 74.04 kg [employer] DAMAGE CLERK-C Jose Loving [employer] AND DAMAGE CLERK Work Phone: [facility] 07-30-2023 10:56-0400 Diastolic blood pressure 74 mm[Hg] [employer] DAMAGE CLERK-C Jose Loving [employer]ORT AND DAMAGE CLERK Work Phone: [facility] 07-30-2023 10:56-0400 Heart rate 89 /min [employer] DAMAGE CLERK-C Jose Loving [employer] AND DAMAGE CLERK Work Phone: [facility] 07-30-2023 10:56-0400 Respiratory rate 16 /min [employer] DAMAGE CLERK-C Jose Loving [employer] AND DAMAGE CLERK Work Phone: [facility] 07-30-2023 10:56-0400 SaO2% (BldA) [Mass fraction] 95 % [employer] DAMAGE CLERK-C Jose Loving [employer] AND DAMAGE CLERK Work Phone: [facility] 07-30-2023 10:56-0400 Systolic blood pressure 110 mm[Hg] [employer] DAMAGE CLERK-C Jose Loving [employer] AND DAMAGE CLERK Work Phone: [facility] 07-30-2023 10:24-0400 Body temperature 98 [degF] [employer] DAMAGE CLERK-C Jose Loving [employer] AND DAMAGE CLERK Work Phone: [facility] 07-30-2023 10:24-0400 Diastolic blood pressure 74 mm[Hg] [employer] DAMAGE CLERK-C Jose Loving [employer] AND DAMAGE CLERK Work Phone: [facility] 07-30-2023 10:24-0400 Heart rate 89 /min [employer] DAMAGE CLERK-C Jose Loving [employer]ORT AND DAMAGE CLERK Work Phone: [facility] 07-30-2023 10:24-0400 Respiratory rate 16 /min [employer] DAMAGE CLERK-C Jose Loving [employer] AND DAMAGE CLERK Work Phone: [facility] 07-30-2023 10:24-0400 SaO2% (BldA) [Mass fraction] 95 % [employer] DAMAGE CLERK-C Jose Loving [employer] AND DAMAGE CLERK Work Phone: [facility] 07-30-2023 10:24-0400 Systolic blood pressure 110 mm[Hg] [employer] AND DAMAGE CLERK-C Jose Loving [employer] AND DAMAGE CLERK Work Phone: [facility] 07-30-2023 07:58-0400 Body mass index (BMI) [Ratio] 28.9 kg/m2 [employer] DAMAGE [employer]ERK-C Jose Loving [employer] AND DAMAGE CLERK Work Phone: [facility] 07-30-2023 07:58-0400 Body temperature 97.9 [degF] [employer] DAMAGE CLERK-C Jose Loving [employer] AND DAMAGE CLERK Work Phone: [facility] 07-30-2023 07:58-0400 Body weight 74.04 kg [employer] DAMAGE CLERK-C Jose Loving [employer] AND DAMAGE CLERK Work Phone: [facility] 07-30-2023 07:58-0400 Diastolic blood pressure 79 mm[Hg] [employer] AND DAMAGE CLERK-C Jose Loving [employer] AND DAMAGE CLERK Work Phone: [facility] 07-30-2023 07:58-0400 Heart rate 92 /min [employer] DAMAGE CLERK-C Jose Loving [employer] AND DAMAGE CLERK Work Phone: [facility] 07-30-2023 07:58-0400 Respiratory rate 18 /min [employer] DAMAGE CLERK-C Jose Loving [employer] AND DAMAGE CLERK Work Phone: [facility] 07-30-2023 07:58-0400 SaO2% (BldA) [Mass fraction] 95 % [employer] DAMAGE CLERK-C Jose Loving [employer] AND DAMAGE CLERK Work Phone: [facility] 07-30-2023 07:58-0400 Systolic blood pressure 116 mm[Hg] [employer] AND DAMAGE CLERK-C Jose Loving [employer] AND DAMAGE CLERK Work Phone: [facility] 07-20-2023 11:38-0400 Body height 160.02 cm [employer] AND DAMAGE CLERK-C Jose Loving [employer] AND DAMAGE CLERK Work Phone: [facility] 07-20-2023 11:38-0400 Body mass index (BMI) [Ratio] 29.2 kg/m2 [employer] DAMAGE [employer]ERK-C Jose Loving [employer] AND DAMAGE CLERK Work Phone: [facility] 07-20-2023 11:38-0400 Body weight 75.06 kg [employer] DAMAGE CLERK-C Jose Loving [employer] AND DAMAGE CLERK Work Phone: [facility] 07-20-2023 11:38-0400 Diastolic blood pressure 78 mm[Hg] [employer] DAMAGE CLERK-C Jose Loving [employer] AND DAMAGE CLERK Work Phone: [facility] 07-20-2023 11:38-0400 Systolic blood pressure 118 mm[Hg] [employer] DAMAGE CLERK-C Jose Loving [employer] AND DAMAGE CLERK Work Phone: [facility] 07-09-2023 11:30-0400 Body temperature 97.9 [degF] [employer] DAMAGE CLERK-C Jose Loving [employer] AND DAMAGE CLERK Work Phone: [facility] 07-09-2023 11:30-0400 Diastolic blood pressure 73 mm[Hg] [employer] DAMAGE CLERK-C Jose Loving [employer] AND DAMAGE CLERK Work Phone: [facility] 07-09-2023 11:30-0400 Heart rate 85 /min [employer] DAMAGE CLERK-C Jose Loving [employer] AND DAMAGE CLERK Work Phone: [facility] 07-09-2023 11:30-0400 Respiratory rate 16 /min [employer] DAMAGE CLERK-C Jose Loving [employer] AND DAMAGE CLERK Work Phone: [facility] 07-09-2023 11:30-0400 SaO2% (BldA) [Mass fraction] 100 % [employer] DAMAGE CLERK-C Jose Loving [employer] AND DAMAGE CLERK Work Phone: [facility] 07-09-2023 11:30-0400 Systolic blood pressure 126 mm[Hg] [employer] AND DAMAGE CLERK-C Jose Loving [employer]ORT AND DAMAGE CLERK Work Phone: [facility] 07-09-2023 09:13-0400 Body height 160.02 cm [employer] AND DAMAGE CLERK-C Jose Loving [employer] AND DAMAGE CLERK Work Phone: [facility] 07-09-2023 09:13-0400 Body mass index (BMI) [Ratio] 29.2 kg/m2 [employer] DAMAGE CLERK-C Jose Loving [employer] AND DAMAGE CLERK Work Phone: [facility] 07-09-2023 09:13-0400 Body temperature 97.9 [degF] [employer] DAMAGE CLERK-C Jose Loving [employer] AND DAMAGE CLERK Work Phone: [facility] 07-09-2023 09:13-0400 Body weight 74.84 kg [employer] AND DAMAGE CLERK-C Jose Loving [employer] AND DAMAGE CLERK Work Phone: [facility] 07-09-2023 09:13-0400 Diastolic blood pressure 76 mm[Hg] [employer] DAMAGE CLERK-C Jose Loving [employer] AND DAMAGE CLERK Work Phone: [facility] 07-09-2023 09:13-0400 Heart rate 82 /min [employer] DAMAGE CLERK-C Jose Loving [employer] AND DAMAGE CLERK Work Phone: [facility] 07-09-2023 09:13-0400 Respiratory rate 18 /min [employer] DAMAGE CLERK-C Jose Loving [employer] AND DAMAGE CLERK Work Phone: [facility] 07-09-2023 09:13-0400 SaO2% (BldA) [Mass fraction] 97 % [employer] DAMAGE CLERK-C Jose Loving [employer] AND DAMAGE CLERK Work Phone: [facility] 07-09-2023 09:13-0400 Systolic blood pressure 112 mm[Hg] [employer] AND DAMAGE CLERK-C Jose Loving [employer] AND DAMAGE CLERK Work Phone: [facility] 06-18-2023 07:54-0400 Body mass index (BMI) [Ratio] 28.5 kg/m2 [employer] DAMAGE CLERK-C Jose Loving [employer] AND DAMAGE CLERK Work Phone: [facility] 06-18-2023 07:54-0400 Body temperature 96.6 [degF] [employer] DAMAGE CLERK-C Jose Loving [employer] AND DAMAGE CLERK Work Phone: [facility] 06-18-2023 07:54-0400 Body weight 73.02 kg [employer] AND DAMAGE CLERK-C Jose Loving [employer] AND DAMAGE CLERK Work Phone: [facility] 06-18-2023 07:54-0400 Diastolic blood pressure 73 mm[Hg] [employer] DAMAGE CLERK-C Jose Loving [employer] AND DAMAGE CLERK Work Phone: [facility] 06-18-2023 07:54-0400 Heart rate 82 /min [employer] DAMAGE CLERK-C Jose Loving [employer] AND DAMAGE CLERK Work Phone: [facility] 06-18-2023 07:54-0400 Respiratory rate 14 /min [employer] DAMAGE CLERK-C Jose Loving [employer] AND DAMAGE CLERK Work Phone: [facility] 06-18-2023 07:54-0400 SaO2% (BldA) [Mass fraction] 99 % [employer] DAMAGE CLERK-C Jose Loving [employer]ORT AND DAMAGE CLERK Work Phone: [facility] 06-18-2023 07:54-0400 Systolic blood pressure 109 mm[Hg] [employer] AND DAMAGE CLERK-C Jose Loving [employer] AND DAMAGE CLERK Work Phone: [facility] 06-12-2023 17:56-0400 Body mass index (BMI) [Ratio] 28.7 kg/m2 [employer] DAMAGE CLERK-C Jose Loving [employer] AND DAMAGE CLERK Work Phone: [facility] 06-12-2023 17:56-0400 Body temperature 97.3 [degF] [employer] DAMAGE CLERK-C Jose Loving [employer] AND DAMAGE CLERK Work Phone: [facility] 06-12-2023 17:56-0400 Body weight 73.48 kg [employer] DAMAGE CLERK-C Jose Loving [employer] AND DAMAGE CLERK Work Phone: [facility] 06-12-2023 17:56-0400 Diastolic blood pressure 60 mm[Hg] [employer] DAMAGE CLERK-C Jose Loving [employer] AND DAMAGE CLERK Work Phone: [facility] 06-12-2023 17:56-0400 Heart rate 98 /min [employer] DAMAGE CLERK-C Jose Loving [employer] AND DAMAGE CLERK Work Phone: [facility] 06-12-2023 17:56-0400 Respiratory rate 18 /min [employer] DAMAGE CLERK-C Jose Loving [employer] AND DAMAGE CLERK Work Phone: [facility] 06-12-2023 17:56-0400 SaO2% (BldA) [Mass fraction] 96 % [employer] DAMAGE CLERK-C Jose Loving [employer] AND DAMAGE CLERK Work Phone: [facility] 06-12-2023 17:56-0400 Systolic blood pressure 110 mm[Hg] [employer] DAMAGE CLERK-C Jose Loving [employer] AND DAMAGE CLERK Work Phone: [facility] 05-28-2023 08:11-0500 Body mass index (BMI) [Ratio] 28.7 kg/m2 [employer] DAMAGE CLERK-C Jose Loving [employer] AND DAMAGE CLERK Work Phone: [facility] 05-28-2023 08:11-0500 Body temperature 97.5 [degF] [employer] DAMAGE CLERK-C Jose Loving [employer] AND DAMAGE CLERK Work Phone: [facility] 05-28-2023 08:11-0500 Body weight 73.48 kg [employer] DAMAGE CLERK-C Jose Loving [employer] AND DAMAGE CLERK Work Phone: [facility] 05-28-2023 08:11-0500 Diastolic blood pressure 75 mm[Hg] [employer] DAMAGE CLERK-C Jose Loving [employer] AND DAMAGE CLERK Work Phone: [facility] 05-28-2023 08:11-0500 Heart rate 77 /min [employer] DAMAGE CLERK-C Jose Loving [employer] AND DAMAGE CLERK Work Phone: [facility] 05-28-2023 08:11-0500 Respiratory rate 16 /min [employer] DAMAGE CLERK-C Jose Loving [employer] AND DAMAGE CLERK Work Phone: [facility] 05-28-2023 08:11-0500 SaO2% (BldA) [Mass fraction] 97 % [employer] DAMAGE CLERK-C Jose Loving [employer] AND DAMAGE CLERK Work Phone: [facility] 05-28-2023 08:11-0500 Systolic blood pressure 108 mm[Hg] [employer] AND DAMAGE CLERK-C Jose Loving [employer] AND DAMAGE CLERK Work Phone: [facility] 05-18-2023 12:55-0500 Body height 160.02 cm [employer] DAMAGE CLERK-C Jose Loving [employer] AND DAMAGE CLERK Work Phone: [facility] 05-18-2023 12:55-0500 Body mass index (BMI) [Ratio] 28.7 kg/m2 [employer] DAMAGE CLERK-C Jose Loving [employer] AND DAMAGE CLERK Work Phone: [facility] 05-18-2023 12:55-0500 Body weight 73.53 kg [employer] DAMAGE CLERK-C Jose Loving [employer] AND DAMAGE CLERK Work Phone: [facility] 05-18-2023 12:55-0500 Diastolic blood pressure 81 mm[Hg] [employer] DAMAGE CLERK-C Jose Loving [employer] AND DAMAGE CLERK Work Phone: [facility] 05-18-2023 12:55-0500 Systolic blood pressure 126 mm[Hg] [employer] AND DAMAGE CLERK-C Jose Woodwardson [employer] AND DAMAGE CLERK Work Phone: [facility] 05-07-2023 11:54-0500 Body temperature 97.6 [degF] [employer] DAMAGE CLERK-C Jose Loving [employer] AND DAMAGE CLERK Work Phone: [facility] 05-07-2023 11:54-0500 Diastolic blood pressure 75 mm[Hg] [employer] AND DAMAGE CLERK-C Jose Woodwardson [employer] AND DAMAGE CLERK Work Phone: [facility] 05-07-2023 11:54-0500 Heart rate 75 /min [employer] DAMAGE CLERK-C Jose Woodwardson [employer] AND DAMAGE CLERK Work Phone: [facility] 05-07-2023 11:54-0500 Respiratory rate 16 /min [employer] DAMAGE CLERK-C Jose Loving [employer] AND DAMAGE CLERK Work Phone: [facility] 05-07-2023 11:54-0500 SaO2% (BldA) [Mass fraction] 98 % [employer] DAMAGE CLERK-C Jose Loving [employer] AND DAMAGE CLERK Work Phone: [facility] 05-07-2023 11:54-0500 Systolic blood pressure 139 mm[Hg] [employer] AND DAMAGE CLERK-C Jose Loving [employer] AND DAMAGE CLERK Work Phone: [facility] 05-07-2023 09:04-0500 Body mass index (BMI) [Ratio] 28.2 kg/m2 [employer] DAMAGE CLERK-C Jose Loving [employer] AND DAMAGE CLERK Work Phone: [facility] 05-07-2023 09:04-0500 Body temperature 97.3 [degF] [employer] AND DAMAGE CLERK-C Jose Woodwardson [employer] AND DAMAGE CLERK Work Phone: [facility] 05-07-2023 09:04-0500 Body weight 72.29 kg [employer] AND DAMAGE CLERK-C Jose Loving [employer] AND DAMAGE CLERK Work Phone: [facility] 05-07-2023 09:04-0500 Diastolic blood pressure 76 mm[Hg] [employer] AND DAMAGE CLERK-C Jose Woodwardson [employer] AND DAMAGE CLERK Work Phone: [facility] 05-07-2023 09:04-0500 Heart rate 76 /min [employer] AND DAMAGE CLERK-C Jose Loving [employer] AND DAMAGE CLERK Work Phone: [facility] 05-07-2023 09:04-0500 Respiratory rate 18 /min [employer] AND DAMAGE CLERK-C Jose Loving [employer] AND DAMAGE CLERK Work Phone: [facility] 05-07-2023 09:04-0500 SaO2% (BldA) [Mass fraction] 97 % [employer] AND DAMAGE CLERK-C Jose Woodwardson [employer] AND DAMAGE CLERK Work Phone: [facility] 05-07-2023 09:04-0500 Systolic blood pressure 111 mm[Hg] [employer] AND DAMAGE CLERK-C Jose Loving [employer] AND DAMAGE CLERK Work Phone: [facility] 05-05-2023 17:05-0500 Body mass index (BMI) [Ratio] 28.7 kg/m2 [employer] DAMAGE CLERK-C Jose Loving [employer] AND DAMAGE CLERK Work Phone: [facility] 05-05-2023 17:05-0500 Body temperature 97.3 [degF] [employer] AND DAMAGE CLERK-C Jose Loving [employer] AND DAMAGE CLERK Work Phone: [facility] 05-05-2023 17:05-0500 Body weight 73.48 kg [employer] AND DAMAGE CLERK-C Jose Loving [employer] AND DAMAGE CLERK Work Phone: [facility] 05-05-2023 17:05-0500 Diastolic blood pressure 70 mm[Hg] [employer] AND DAMAGE CLERK-C Jose Loving [employer] AND DAMAGE CLERK Work Phone: [facility] 05-05-2023 17:05-0500 Heart rate 82 /min [employer] AND DAMAGE CLERK-C Jose Loving [employer] AND DAMAGE CLERK Work Phone: [facility] 05-05-2023 17:05-0500 Respiratory rate 18 /min [employer] AND DAMAGE CLERK-C Jose Loving [employer] AND DAMAGE CLERK Work Phone: [facility] 05-05-2023 17:05-0500 SaO2% (BldA) [Mass fraction] 95 % [employer] AND DAMAGE CLERK-C Jose Loving [employer] AND DAMAGE CLERK Work Phone: [facility] 05-05-2023 17:05-0500 Systolic blood pressure 115 mm[Hg] [employer] AND DAMAGE CLERK-C Jose Loving [employer] AND DAMAGE CLERK Work Phone: [facility] 04-17-2023 15:11-0500 Body height 160.[address] Mary Jo Deshpande Work Phone: [facility] 04-17-2023 15:11-0500 Body mass index (BMI) [Ratio] 29.4 kg/m2 Dr. Mary Jo Deshpande Work Phone: [facility] 04-17-2023 15:11-0500 Body temperature 97.5 [degF] Dr. Mary Jo Deshpande Work Phone: [facility] 04-17-2023 15:11-0500 Body weight 75.[address] Mary Jo Deshpande Work Phone: [facility] 04-17-2023 15:11-0500 Diastolic blood pressure 70 mm[Hg] Dr. Mary Jo Deshpande Work Phone: [facility] 04-17-2023 15:11-0500 Heart rate 99 /min Dr. Mary Jo Deshpande Work Phone: [facility] 04-17-2023 15:11-0500 Respiratory rate 18 /min Dr. Mary Jo Deshpande Work Phone: [facility] 04-17-2023 15:11-0500 SaO2% (BldA) [Mass fraction] 98 % Dr. Mary Jo Deshpande Work Phone: [facility] 04-17-2023 15:11-0500 Systolic blood pressure 102 mm[Hg] Dr. Mary Jo Deshpande Work Phone: [facility] 04-16-2023 14:14-0500 Body temperature 98.8 [degF] Dr. Mary Jo Deshpande Work Phone: [facility] 04-16-2023 14:14-0500 Diastolic blood pressure 76 mm[Hg] Dr. Mary Jo Deshpande Work Phone: [facility] 04-16-2023 14:14-0500 Heart rate 81 /min Dr. Mary Jo Deshpande Work Phone: [facility] 04-16-2023 14:14-0500 Respiratory rate 16 /min Dr. Mary Jo Deshpande Work Phone: [facility] 04-16-2023 14:14-0500 SaO2% (BldA) [Mass fraction] 100 % Dr. Mary Jo Deshpande Work Phone: [facility] 04-16-2023 14:14-0500 Systolic blood pressure 129 mm[Hg] Dr. Mary Jo Deshpande Work Phone: [facility] 04-16-2023 08:15-0500 Body height 160.[address] Mary Jo Deshpande Work Phone: [facility] 04-16-2023 08:15-0500 Body mass index (BMI) [Ratio] 29.2 kg/m2 Dr. Mary Jo Deshpande Work Phone: [facility] 04-16-2023 08:15-0500 Body temperature 98 [degF] Dr. Mary Jo Deshpande Work Phone: [facility] 04-16-2023 08:15-0500 Body weight 74.[address] Mary Jo Deshpande Work Phone: [facility] 04-16-2023 08:15-0500 Diastolic blood pressure 83 mm[Hg] Dr. Mary Jo Deshpande Work Phone: [facility] 04-16-2023 08:15-0500 Heart rate 80 /min Dr. Mary Jo Deshpande Work Phone: [facility] 04-16-2023 08:15-0500 Respiratory rate 18 /min Dr. Mary Jo Deshpande Work Phone: [facility] 04-16-2023 08:15-0500 SaO2% (BldA) [Mass fraction] 100 % Dr. Mary Jo Deshpande Work Phone: [facility] 04-16-2023 08:15-0500 Systolic blood pressure 132 mm[Hg] Dr. Mary Jo Deshpande Work Phone: [facility] 04-13-2023 09:52-0500 Body mass index (BMI) [Ratio] 29.2 kg/m2 Dr. Mary Jo Deshpande Work Phone: [facility] 04-13-2023 09:52-0500 Body temperature 97.7 [degF] Dr. Mary Jo Deshpande Work Phone: [facility] 04-13-2023 09:52-0500 Body weight 74.[address] Mary Jo Deshpande Work Phone: [facility] 04-13-2023 09:52-0500 Diastolic blood pressure 83 mm[Hg] Dr. Mary Jo Deshpande Work Phone: [facility] 04-13-2023 09:52-0500 Heart rate 77 /min Dr. Mary Jo Deshpande Work Phone: [facility] 04-13-2023 09:52-0500 Respiratory rate 16 /min Dr. Mary Jo Deshpande Work Phone: [facility] 04-13-2023 09:52-0500 SaO2% (BldA) [Mass fraction] 96 % Dr. Mary Jo Deshpande Work Phone: [facility] 04-13-2023 09:52-0500 Systolic blood pressure 120 mm[Hg] Dr. Mary Jo Deshpande Work Phone: [facility] 04-08-2023 16:19-0500 Body mass index (BMI) [Ratio] 29.4 kg/m2 Dr. Mary Jo Deshpande Work Phone: [facility] 04-08-2023 16:19-0500 Body temperature 97.9 [degF] Dr. Mary Jo Deshpande Work Phone: [facility] 04-08-2023 16:19-0500 Body weight 75.[address] Mary Jo Deshpande Work Phone: [facility] 04-08-2023 16:19-0500 Diastolic blood pressure 60 mm[Hg] Dr. Mary Jo Deshpande Work Phone: [facility] 04-08-2023 16:19-0500 Heart rate 86 /min Dr. Mary Jo Deshpande Work Phone: [facility] 04-08-2023 16:19-0500 Respiratory rate 18 /min Dr. Mary Jo Deshpande Work Phone: [facility] 04-08-2023 16:19-0500 SaO2% (BldA) [Mass fraction] 96 % Dr. Mary Jo Deshpande Work Phone: [facility] 04-08-2023 16:19-0500 Systolic blood pressure 122 mm[Hg] Dr. Mary Jo Deshpande Work Phone: [facility] 03-25-2023 13:52-0500 Diastolic blood pressure 85 mm[Hg] OVER SHORT AND DAMAGE CLERKKaela Loving OVER SHORT AND DAMAGE CLERK Work Phone: [facility] 03-25-2023 13:52-0500 Heart rate 84 /min OVER SHORT AND DAMAGE CLERK-Ronaldo Loving OVER SHORT AND DAMAGE CLERK Work Phone: [facility] 03-25-2023 13:52-0500 Systolic blood pressure 127 mm[Hg] OVER SHORT AND DAMAGE CLERK-C Jose Loving OVER SHORT AND DAMAGE CLERK Work Phone: [facility] 03-25-2023 11:27-0500 Body height 157.48 cm [employer] SHORT AND DAMAGE CLERK-C Jose Loving OVER SHORT AND DAMAGE CLERK Work Phone: [facility] 03-25-2023 11:24-0500 Body mass index (BMI) [Ratio] 29.9 kg/m2 [employer] SHORT AND DAMAGE CLERK-C Jose Loving OVER SHORT AND DAMAGE CLERK Work Phone: [facility] 03-25-2023 11:24-0500 Body temperature 97.8 [degF] [employer] SHORT AND DAMAGE CLERK-C Jose Loving OVER SHORT AND DAMAGE CLERK Work Phone: [facility] 03-25-2023 11:24-0500 Body weight 74.38 kg OVER SHORT AND DAMAGE CLERK-C Jose Loving OVER SHORT AND DAMAGE CLERK Work Phone: [facility] 03-25-2023 11:24-0500 Diastolic blood pressure 78 mm[Hg] OVER SHORT AND DAMAGE CLERK-C Jose Loving OVER SHORT AND DAMAGE CLERK Work Phone: [facility] 03-25-2023 11:24-0500 Heart rate 85 /min [employer] SHORT AND DAMAGE CLERK-C Jose Loving OVER SHORT AND DAMAGE CLERK Work Phone: [facility] 03-25-2023 11:24-0500 Respiratory rate 18 /min [employer] SHORT AND DAMAGE CLERK-C Jose Loving OVER SHORT AND DAMAGE CLERK Work Phone: [facility] 03-25-2023 11:24-0500 SaO2% (BldA) [Mass fraction] 96 % [employer] SHORT AND DAMAGE CLERK-C Jose Loving OVER SHORT AND DAMAGE CLERK Work Phone: [facility] 03-25-2023 11:24-0500 Systolic blood pressure 119 mm[Hg] OVER SHORT AND DAMAGE CLERK-C Jose Loving OVER SHORT AND DAMAGE CLERK Work Phone: [facility] 03-05-2023 12:28-0500 Body temperature 96.8 [degF] OVER SHORT AND DAMAGE CLERK-C Jose Loving OVER SHORT AND DAMAGE CLERK Work Phone: [facility] 03-05-2023 12:28-0500 Respiratory rate 16 /min [employer] SHORT AND DAMAGE CLERK-C Jose Loving OVER SHORT AND DAMAGE CLERK Work Phone: [facility] 03-05-2023 12:28-0500 SaO2% (BldA) [Mass fraction] 96 % [employer] SHORT AND DAMAGE CLERK-C Jose Loving OVER SHORT AND DAMAGE CLERK Work Phone: [facility] 03-05-2023 09:56-0500 Body mass index (BMI) [Ratio] 29.7 kg/m2 [employer] SHORT AND DAMAGE CLERK-C Jose Loving OVER SHORT AND DAMAGE CLERK Work Phone: 6(621)517-956779 [place] [address] 03-05-2023 09:56-0500 Body temperature 98.1 [degF] OVER SHORT AND DAMAGE CLERK-C Jose Loving OVER SHORT AND DAMAGE CLERK Work Phone: 8(196)182-381590 [address] 03-05-2023 09:56-0500 Body weight 73.65 kg OVER SHORT AND DAMAGE CLERK-C Jose Loving OVER SHORT AND DAMAGE CLERK Work Phone: 5(824)799-550190 [address] 03-05-2023 09:56-0500 Diastolic blood pressure 72 mm[Hg] OVER SHORT AND DAMAGE CLERK-C Jose Loving OVER SHORT AND DAMAGE CLERK Work Phone: 3(627)522-893590 [address] 03-05-2023 09:56-0500 Heart rate 94 /min [employer] SHORT AND DAMAGE CLERK-C Jose Loving OVER SHORT AND DAMAGE CLERK Work Phone: 1(717)364-623090 [address] 03-05-2023 09:56-0500 Respiratory rate 16 /min [employer] SHORT AND DAMAGE CLERK-C Jose Loving OVER SHORT AND DAMAGE CLERK Work Phone: 3(478)663-995179 [place] [address] 03-05-2023 09:56-0500 SaO2% (BldA) [Mass fraction] 97 % [employer] SHORT AND DAMAGE CLERK-C Jose Loving OVER SHORT AND DAMAGE CLERK Work Phone: 1(223)330-134579 [place] [address] 03-05-2023 09:56-0500 Systolic blood pressure 104 mm[Hg] OVER SHORT AND DAMAGE CLERK-C Jose Woodwardson OVER SHORT AND DAMAGE CLERK Work Phone: 3(123)598-462490 [address] 03-02-2023 08:56-0500 Body mass index (BMI) [Ratio] 29.2 kg/m2 [employer] SHORT AND DAMAGE CLERK-C Jose Woodwardson OVER SHORT AND DAMAGE CLERK Work Phone: 1(579)566-907379 [place] [address] 03-02-2023 08:56-0500 Body temperature 98.1 [degF] OVER SHORT AND DAMAGE CLERK-C Jose Loving OVER SHORT AND DAMAGE CLERK Work Phone: [facility] 03-02-2023 08:56-0500 Body weight 72.65 kg OVER SHORT AND DAMAGE CLERK-C Jose Loving OVER SHORT AND DAMAGE CLERK Work Phone: [facility] 03-02-2023 08:56-0500 Diastolic blood pressure 87 mm[Hg] OVER SHORT AND DAMAGE CLERK-C Jose Loving OVER SHORT AND DAMAGE CLERK Work Phone: [facility] 03-02-2023 08:56-0500 Heart rate 92 /min OVER SHORT AND DAMAGE CLERK-C Jose Loving OVER SHORT AND DAMAGE CLERK Work Phone: [facility] 03-02-2023 08:56-0500 Respiratory rate 16 /min [employer] SHORT AND DAMAGE CLERK-C Jose Loving OVER SHORT AND DAMAGE CLERK Work Phone: [facility] 03-02-2023 08:56-0500 SaO2% (BldA) [Mass fraction] 96 % [employer] SHORT AND DAMAGE CLERK-C Jose Loving OVER SHORT AND DAMAGE CLERK Work Phone: [facility] 03-02-2023 08:56-0500 Systolic blood pressure 124 mm[Hg] OVER SHORT AND DAMAGE CLERK-C Jose Loving OVER SHORT AND DAMAGE CLERK Work Phone: [facility] 02-25-2023 08:51-0500 Body mass index (BMI) [Ratio] 29.5 kg/m2 OVER SHORT AND DAMAGE CLERK-C Jose Loving OVER SHORT AND DAMAGE CLERK Work Phone: [facility] 02-25-2023 08:51-0500 Body temperature 97.5 [degF] OVER SHORT AND DAMAGE CLERK-C Jose Loving OVER SHORT AND DAMAGE CLERK Work Phone: [facility] 02-25-2023 08:51-0500 Body weight 73.08 kg OVER SHORT AND DAMAGE CLERK-C Jose Loving OVER SHORT AND DAMAGE CLERK Work Phone: [facility] 02-25-2023 08:51-0500 Diastolic blood pressure 85 mm[Hg] OVER SHORT AND DAMAGE CLERK-C Jose Loving OVER SHORT AND DAMAGE CLERK Work Phone: [facility] 02-25-2023 08:51-0500 Heart rate 90 /min OVER SHORT AND DAMAGE CLERK-C Jose Loving OVER SHORT AND DAMAGE CLERK Work Phone: [facility] 02-25-2023 08:51-0500 Respiratory rate 16 /min OVER SHORT AND DAMAGE CLERK-C Jose Loving OVER SHORT AND DAMAGE CLERK Work Phone: [facility] 02-25-2023 08:51-0500 SaO2% (BldA) [Mass fraction] 97 % [employer] SHORT AND DAMAGE CLERK-C Jose Loving OVER SHORT AND DAMAGE CLERK Work Phone: 1(624)568-848079 [place] [address] 02-25-2023 08:51-0500 Systolic blood pressure 119 mm[Hg] OVER SHORT AND DAMAGE CLERK-C Jose Loving OVER SHORT AND DAMAGE CLERK Work Phone: 5(608)330-819290 [address] 02-18-2023 08:40-0500 Body mass index (BMI) [Ratio] 29.2 kg/m2 [employer] SHORT AND DAMAGE CLERK-C Jose Loving OVER SHORT AND DAMAGE CLERK Work Phone: 2(826)275-818845 [place] [address] 02-18-2023 08:40-0500 Body temperature 97.5 [degF] OVER SHORT AND DAMAGE CLERK-C Jose Loving OVER SHORT AND DAMAGE CLERK Work Phone: 8(374)401-288090 [address] 02-18-2023 08:40-0500 Body weight 72.37 kg OVER SHORT AND DAMAGE CLERK-C Jose Lovnig OVER SHORT AND DAMAGE CLERK Work Phone: 8(908)100-286590 [address] 02-18-2023 08:40-0500 Diastolic blood pressure 86 mm[Hg] OVER SHORT AND DAMAGE CLERK-C Jose Loving OVER SHORT AND DAMAGE CLERK Work Phone: 0(276)999-037390 [address] 02-18-2023 08:40-0500 Heart rate 83 /min OVER SHORT AND DAMAGE CLERK-C Jose Loving OVER SHORT AND DAMAGE CLERK Work Phone: 3(109)586-689379 [place] [address] 02-18-2023 08:40-0500 Respiratory rate 16 /min OVER SHORT AND DAMAGE CLERK-C Jose Loving OVER SHORT AND DAMAGE CLERK Work Phone: [facility] 02-18-2023 08:40-0500 SaO2% (BldA) [Mass fraction] 94 % OVER SHORT AND DAMAGE CLERK-C Jose Loving OVER SHORT AND DAMAGE CLERK Work Phone: [facility] 02-18-2023 08:40-0500 Systolic blood pressure 137 mm[Hg] OVER SHORT AND DAMAGE CLERK-C Jose Loving OVER SHORT AND DAMAGE CLERK Work Phone: [facility] 02-16-2023 09:32-0500 Body mass index (BMI) [Ratio] 29.2 kg/m2 OVER SHORT AND DAMAGE CLERK-C Jose Loving OVER SHORT AND DAMAGE CLERK Work Phone: [facility] 02-16-2023 09:32-0500 Body temperature 98 [degF] OVER SHORT AND DAMAGE CLERK-C Jose Loving OVER SHORT AND DAMAGE CLERK Work Phone: [facility] 02-16-2023 09:32-0500 Body weight 72.57 kg OVER SHORT AND DAMAGE CLERK-C Jose Loving OVER SHORT AND DAMAGE CLERK Work Phone: [facility] 02-16-2023 09:32-0500 Diastolic blood pressure 78 mm[Hg] OVER SHORT AND DAMAGE CLERK-C Jose Loving OVER SHORT AND DAMAGE CLERK Work Phone: [facility] 02-16-2023 09:32-0500 Heart rate 99 /min OVER SHORT AND DAMAGE CLERK-C Jose Loving OVER SHORT AND DAMAGE CLERK Work Phone: [facility] 02-16-2023 09:32-0500 Respiratory rate 18 /min OVER SHORT AND DAMAGE CLERK-C Jose Loving OVER SHORT AND DAMAGE CLERK Work Phone: [facility] 02-16-2023 09:32-0500 SaO2% (BldA) [Mass fraction] 97 % OVER SHORT AND DAMAGE CLERK-C Jose Loving OVER SHORT AND DAMAGE CLERK Work Phone: [facility] 02-16-2023 09:32-0500 Systolic blood pressure 120 mm[Hg] OVER SHORT AND DAMAGE CLERK-C Jose Loving OVER SHORT AND DAMAGE CLERK Work Phone: [facility] 02-12-2023 10:01-0500 Body mass index (BMI) [Ratio] 29.3 kg/m2 OVER SHORT AND DAMAGE CLERK-C Jose Loving OVER SHORT AND DAMAGE CLERK Work Phone: [facility] 02-12-2023 10:01-0500 Body temperature 98.3 [degF] OVER SHORT AND DAMAGE CLERK-C Jose Loving OVER SHORT AND DAMAGE CLERK Work Phone: [facility] 02-12-2023 10:01-0500 Body weight 72.74 kg OVER SHORT AND DAMAGE CLERK-C Jose Loving OVER SHORT AND DAMAGE CLERK Work Phone: [facility] 02-12-2023 10:01-0500 Diastolic blood pressure 79 mm[Hg] OVER SHORT AND DAMAGE CLERK-C Jose Loving OVER SHORT AND DAMAGE CLERK Work Phone: [facility] 02-12-2023 10:01-0500 Heart rate 93 /min OVER SHORT AND DAMAGE CLERK-C Jose Loving OVER SHORT AND DAMAGE CLERK Work Phone: [facility] 02-12-2023 10:01-0500 Respiratory rate 16 /min OVER SHORT AND DAMAGE CLERK-C Jose Loving OVER SHORT AND DAMAGE CLERK Work Phone: [facility] 02-12-2023 10:01-0500 SaO2% (BldA) [Mass fraction] 97 % [employer] SHORT AND DAMAGE CLERK-C Jose Woodwardson OVER SHORT AND DAMAGE CLERK Work Phone: [facility] 02-12-2023 10:01-0500 Systolic blood pressure 114 mm[Hg] OVER SHORT AND DAMAGE CLERK-C Jose Woodwardson OVER SHORT AND DAMAGE CLERK Work Phone: [facility] 02-11-2023 09:05-0500 Body mass index (BMI) [Ratio] 29 kg/m2 OVER SHORT AND DAMAGE CLERK-C Jose Loving OVER SHORT AND DAMAGE CLERK Work Phone: [facility] 02-11-2023 09:05-0500 Body temperature 97.5 [degF] OVER SHORT AND DAMAGE CLERK-C Jose Woodwardson OVER SHORT AND DAMAGE CLERK Work Phone: [facility] 02-11-2023 09:05-0500 Body weight 72.12 kg OVER SHORT AND DAMAGE CLERK-C Jose Loving OVER SHORT AND DAMAGE CLERK Work Phone: [facility] 02-11-2023 09:05-0500 Diastolic blood pressure 84 mm[Hg] OVER SHORT AND DAMAGE CLERK-C Josetom WoodwardLoving OVER SHORT AND DAMAGE CLERK Work Phone: [facility] 02-11-2023 09:05-0500 Heart rate 89 /min OVER SHORT AND DAMAGE CLERK-C Jose Loving OVER SHORT AND DAMAGE CLERK Work Phone: [facility] 02-11-2023 09:05-0500 Respiratory rate 16 /min OVER SHORT AND DAMAGE CLERK-C Jose Loving OVER SHORT AND DAMAGE CLERK Work Phone: [facility] 02-11-2023 09:05-0500 SaO2% (BldA) [Mass fraction] 95 % [employer] SHORT AND DAMAGE CLERK-C Jose Loving OVER SHORT AND DAMAGE CLERK Work Phone: 7(676)905-221679 [place] [address] 02-11-2023 09:05-0500 Systolic blood pressure 121 mm[Hg] OVER SHORT AND DAMAGE CLERK-C Jose Loving OVER SHORT AND DAMAGE CLERK Work Phone: 6(031)798-401690 [address] 01-26-2023 09:32-0400 Body mass index (BMI) [Ratio] 28.8 kg/m2 OVER SHORT AND DAMAGE CLERK-C Jose Loving OVER SHORT AND DAMAGE CLERK Work Phone: 0(468)330-712090 [address] 01-26-2023 09:32-0400 Body weight 71.44 kg OVER SHORT AND DAMAGE CLERK-C Jose Loving OVER SHORT AND DAMAGE CLERK Work Phone: 4(201)055-194445 [place] [address] 01-26-2023 09:32-0400 Diastolic blood pressure 81 mm[Hg] OVER SHORT AND DAMAGE CLERK-C Jose Loving OVER SHORT AND DAMAGE CLERK Work Phone: 3(352)372-153845 [place] [address] 01-26-2023 09:32-0400 Systolic blood pressure 124 mm[Hg] OVER SHORT AND DAMAGE CLERK-C Jose Loving OVER SHORT AND DAMAGE CLERK Work Phone: 1(130)761-944945 [place] [address] 01-20-2023 17:18-0400 Body mass index (BMI) [Ratio] 28.5 kg/m2 OVER SHORT AND DAMAGE CLERK-C Jose Loving OVER SHORT AND DAMAGE CLERK Work Phone: 2(837)905-758845 [place] [address] 01-20-2023 17:18-0400 Body temperature 97.9 [degF] OVER SHORT AND DAMAGE CLERK-C Jose Loving OVER SHORT AND DAMAGE CLERK Work Phone: 9(759)472-920545 [place] [address] 01-20-2023 17:18-0400 Body weight 70.76 kg OVER SHORT AND DAMAGE CLERK-C Jose Loving OVER SHORT AND DAMAGE CLERK Work Phone: 6(675)990-897145 [place] [address] 01-20-2023 17:18-0400 Diastolic blood pressure 70 mm[Hg] OVER SHORT AND DAMAGE CLERK-C Jose Loving OVER SHORT AND DAMAGE CLERK Work Phone: 1(735)660-039045 [place] [address] 01-20-2023 17:18-0400 Heart rate 89 /min OVER SHORT AND DAMAGE CLERK-C Jose Loving OVER SHORT AND DAMAGE CLERK Work Phone: 6(841)848-467379 [place] [address] 01-20-2023 17:18-0400 Respiratory rate 18 /min OVER SHORT AND DAMAGE CLERK-C Jose Inder OVER SHORT AND DAMAGE CLERK Work Phone: [facility] 01-20-2023 17:18-0400 SaO2% (BldA) [Mass fraction] 98 % OVER SHORT AND DAMAGE CLERK-C Jose Loving OVER SHORT AND DAMAGE CLERK Work Phone: [facility] 01-20-2023 17:18-0400 Systolic blood pressure 100 mm[Hg] OVER SHORT AND DAMAGE CLERK-C Jose Loving OVER SHORT AND DAMAGE CLERK Work Phone: [facility] 01-19-2023 10:32-0400 Body mass index (BMI) [Ratio] 28.5 kg/m2 OVER SHORT AND DAMAGE CLERK-C Jose Loving OVER SHORT AND DAMAGE CLERK Work Phone: [facility] 01-19-2023 10:32-0400 Body temperature 98.3 [degF] OVER SHORT AND DAMAGE CLERK-C Jose Loving OVER SHORT AND DAMAGE CLERK Work Phone: 9(714)927-397290 [address] 01-19-2023 10:32-0400 Body weight 70.81 kg OVER SHORT AND DAMAGE CLERK-C Jose Loving OVER SHORT AND DAMAGE CLERK Work Phone: [facility] 01-19-2023 10:32-0400 Diastolic blood pressure 73 mm[Hg] OVER SHORT AND DAMAGE CLERK-C Jose Loving OVER SHORT AND DAMAGE CLERK Work Phone: [facility] 01-19-2023 10:32-0400 Heart rate 88 /min OVER SHORT AND DAMAGE CLERK-C Jose Loving OVER SHORT AND DAMAGE CLERK Work Phone: [facility] 01-19-2023 10:32-0400 Respiratory rate 18 /min OVER SHORT AND DAMAGE CLERK-C Jose Loving OVER SHORT AND DAMAGE CLERK Work Phone: [facility] 01-19-2023 10:32-0400 SaO2% (BldA) [Mass fraction] 96 % OVER SHORT AND DAMAGE CLERK-C Jose Loving OVER SHORT AND DAMAGE CLERK Work Phone: [facility] 01-19-2023 10:32-0400 Systolic blood pressure 110 mm[Hg] OVER SHORT AND DAMAGE CLERK-C Jose Loving OVER SHORT AND DAMAGE CLERK Work Phone: [facility] 01-13-2023 09:31-0400 Body mass index (BMI) [Ratio] 28.8 kg/m2 OVER SHORT AND DAMAGE CLERK-C Jose Loving OVER SHORT AND DAMAGE CLERK Work Phone: [facility] 01-13-2023 09:31-0400 Body temperature 97.8 [degF] OVER SHORT AND DAMAGE CLERK-C Jose Loving OVER SHORT AND DAMAGE CLERK Work Phone: [facility] 01-13-2023 09:31-0400 Body weight 71.44 kg OVER SHORT AND DAMAGE CLERK-C Jose Loving OVER SHORT AND DAMAGE CLERK Work Phone: [facility] 01-13-2023 09:31-0400 Diastolic blood pressure 81 mm[Hg] OVER SHORT AND DAMAGE CLERK-C Jose Loving OVER SHORT AND DAMAGE CLERK Work Phone: 2(664)889-379679 [place] [address] 01-13-2023 09:31-0400 Heart rate 70 /min OVER SHORT AND DAMAGE CLERK-C Jose Loving OVER SHORT AND DAMAGE CLERK Work Phone: 9(064)001-467790 [address] 01-13-2023 09:31-0400 Respiratory rate 18 /min OVER SHORT AND DAMAGE CLERK-C Jose Loving OVER SHORT AND DAMAGE CLERK Work Phone: 1(203)331-633179 [place] [address] 01-13-2023 09:31-0400 SaO2% (BldA) [Mass fraction] 97 % OVER SHORT AND DAMAGE CLERK-C Jose Loving OVER SHORT AND DAMAGE CLERK Work Phone: [facility] 01-13-2023 09:31-0400 Systolic blood pressure 116 mm[Hg] OVER SHORT AND DAMAGE CLERK-C Jose Loving OVER SHORT AND DAMAGE CLERK Work Phone: [facility] 12-25-2022 15:52-0400 Body temperature 97.6 [degF] OVER SHORT AND DAMAGE CLERK-C Jose Loving OVER SHORT AND DAMAGE CLERK Work Phone: [facility] 12-25-2022 15:52-0400 Diastolic blood pressure 75 mm[Hg] OVER SHORT AND DAMAGE CLERK-C Jose Loving OVER SHORT AND DAMAGE CLERK Work Phone: [facility] 12-25-2022 15:52-0400 Heart rate 83 /min OVER SHORT AND DAMAGE CLERK-C Jose Loving OVER SHORT AND DAMAGE CLERK Work Phone: [facility] 12-25-2022 15:52-0400 Respiratory rate 16 /min OVER SHORT AND DAMAGE CLERK-C Jose Loving OVER SHORT AND DAMAGE CLERK Work Phone: [facility] 12-25-2022 15:52-0400 SaO2% (BldA) [Mass fraction] 95 % OVER SHORT AND DAMAGE CLERK-C Jose Loving OVER SHORT AND DAMAGE CLERK Work Phone: [facility] 12-25-2022 15:52-0400 Systolic blood pressure 116 mm[Hg] OVER SHORT AND DAMAGE CLERK-C Jose Loving OVER SHORT AND DAMAGE CLERK Work Phone: [facility] 12-25-2022 15:15-0400 Inhaled oxygen flow rate 8 L/min [employer] SHORT AND DAMAGE CLERK-C Jose Loving OVER SHORT AND DAMAGE CLERK Work Phone: [facility] 12-25-2022 08:02-0400 Body mass index (BMI) [Ratio] 28 kg/m2 [employer] SHORT AND DAMAGE CLERK-C Jose Loving OVER SHORT AND DAMAGE CLERK Work Phone: [facility] 12-25-2022 08:02-0400 Body weight 69.58 kg OVER SHORT AND DAMAGE CLERK-C Jose Loving OVER SHORT AND DAMAGE CLERK Work Phone: [facility] 12-11-2022 10:46-0400 Body temperature 97.1 [degF] OVER SHORT AND DAMAGE CLERK-C Jose Loving OVER SHORT AND DAMAGE CLERK Work Phone: [facility] 12-11-2022 10:46-0400 Diastolic blood pressure 59 mm[Hg] OVER SHORT AND DAMAGE CLERK-C Jose Loving OVER SHORT AND DAMAGE CLERK Work Phone: [facility] 12-11-2022 10:46-0400 Heart rate 94 /min OVER SHORT AND DAMAGE CLERK-C Jose Loving OVER SHORT AND DAMAGE CLERK Work Phone: [facility] 12-11-2022 10:46-0400 Respiratory rate 17 /min OVER SHORT AND DAMAGE CLERK-C Jose Loving OVER SHORT AND DAMAGE CLERK Work Phone: [facility] 12-11-2022 10:46-0400 SaO2% (BldA) [Mass fraction] 97 % OVER SHORT AND DAMAGE CLERK-C Jose Loving OVER SHORT AND DAMAGE CLERK Work Phone: [facility] 12-11-2022 10:46-0400 Systolic blood pressure 90 mm[Hg] OVER SHORT AND DAMAGE CLERK-C Jose Loving OVER SHORT AND DAMAGE CLERK Work Phone: [facility] 12-10-2022 16:43-0400 Body height 160.02 cm OVER SHORT AND DAMAGE CLERK-C Jose Loving OVER SHORT AND DAMAGE CLERK Work Phone: [facility] 12-10-2022 16:43-0400 Body mass index (BMI) [Ratio] 26 kg/m2 [employer] SHORT AND DAMAGE CLERK-C Jose Loving OVER SHORT AND DAMAGE CLERK Work Phone: [facility] 12-10-2022 16:43-0400 Body temperature 97 [degF] OVER SHORT AND DAMAGE CLERK-C Jose Loving OVER SHORT AND DAMAGE CLERK Work Phone: 2(130)961-259679 [place] [address] 12-10-2022 16:43-0400 Body weight 66.67 kg OVER SHORT AND DAMAGE CLERK-C Jose Loving OVER SHORT AND DAMAGE CLERK Work Phone: 5(435)317-661979 [place] [address] 12-10-2022 16:43-0400 Diastolic blood pressure 60 mm[Hg] OVER SHORT AND DAMAGE CLERK-C Jose Loving OVER SHORT AND DAMAGE CLERK Work Phone: 1(754)875-217390 [address] 12-10-2022 16:43-0400 Heart rate 85 /min OVER SHORT AND DAMAGE CLERK-C Jose Loving OVER SHORT AND DAMAGE CLERK Work Phone: 5(345)485-899079 [place] [address] 12-10-2022 16:43-0400 Respiratory rate 18 /min OVER SHORT AND DAMAGE CLERK-C Jose Loving OVER SHORT AND DAMAGE CLERK Work Phone: [facility] 12-10-2022 16:43-0400 SaO2% (BldA) [Mass fraction] 98 % OVER SHORT AND DAMAGE CLERK-C Jose Loving OVER SHORT AND DAMAGE CLERK Work Phone: [facility] 12-10-2022 16:43-0400 Systolic blood pressure 100 mm[Hg] OVER SHORT AND DAMAGE CLERK-C Jose Loving OVER SHORT AND DAMAGE CLERK Work Phone: [facility] 11-24-2022 08:04-0400 Body mass index (BMI) [Ratio] 27.3 kg/m2 OVER SHORT AND DAMAGE CLERK-C Jose Loving OVER SHORT AND DAMAGE CLERK Work Phone: [facility] 11-24-2022 08:04-0400 Body temperature 98.4 [degF] OVER SHORT AND DAMAGE CLERK-C Jose Loving OVER SHORT AND DAMAGE CLERK Work Phone: [facility] 11-24-2022 08:04-0400 Body weight 70.05 kg OVER SHORT AND DAMAGE CLERK-C Jose Loving OVER SHORT AND DAMAGE CLERK Work Phone: [facility] 11-24-2022 08:04-0400 Diastolic blood pressure 72 mm[Hg] OVER SHORT AND DAMAGE CLERK-C Jose Loving OVER SHORT AND DAMAGE CLERK Work Phone: [facility] 11-24-2022 08:04-0400 Heart rate 91 /min OVER SHORT AND DAMAGE CLERK-C Jose Loving OVER SHORT AND DAMAGE CLERK Work Phone: [facility] 11-24-2022 08:04-0400 Respiratory rate 18 /min OVER SHORT AND DAMAGE CLERK-C Jose Loving OVER SHORT AND DAMAGE CLERK Work Phone: [facility] 11-24-2022 08:04-0400 SaO2% (BldA) [Mass fraction] 100 % [employer] SHORT AND DAMAGE CLERK-C Jose Loving OVER SHORT AND DAMAGE CLERK Work Phone: [facility] 11-24-2022 08:04-0400 Systolic blood pressure 106 mm[Hg] OVER SHORT AND DAMAGE CLERK-C Jose Loving OVER SHORT AND DAMAGE CLERK Work Phone: [facility] 11-17-2022 09:44-0400 Body mass index (BMI) [Ratio] 27.4 kg/m2 [employer] AND DAMAGE CLERK-C Jose Loving OVER SHORT AND DAMAGE CLERK Work Phone: [facility] 11-17-2022 09:44-0400 Body temperature 97.5 [degF] OVER SHORT AND DAMAGE CLERK-C Jose Loving OVER SHORT AND DAMAGE CLERK Work Phone: [facility] 11-17-2022 09:44-0400 Body weight 70.3 kg OVER [employer]ORT AND DAMAGE CLERK-C Jose Loving OVER SHORT AND DAMAGE CLERK Work Phone: [facility] 11-17-2022 09:44-0400 Diastolic blood pressure 62 mm[Hg] [employer] SHORT AND DAMAGE CLERK-C Jose Loving OVER SHORT AND DAMAGE CLERK Work Phone: [facility] 11-17-2022 09:44-0400 Heart rate 84 /min [employer] SHORT AND DAMAGE CLERK-C Jose Loving OVER SHORT AND DAMAGE CLERK Work Phone: [facility] 11-17-2022 09:44-0400 Respiratory rate 18 /min [employer] SHORT AND DAMAGE CLERK-C Jose Loving OVER SHORT AND DAMAGE CLERK Work Phone: [facility] 11-17-2022 09:44-0400 SaO2% (BldA) [Mass fraction] 99 % [employer] SHORT AND DAMAGE CLERK-C Jose Loving OVER SHORT AND DAMAGE CLERK Work Phone: [facility] 11-17-2022 09:44-0400 Systolic blood pressure 114 mm[Hg] OVER SHORT AND DAMAGE CLERK-C Jose Woodwardson OVER SHORT AND DAMAGE CLERK Work Phone: [facility] 10-28-2022 16:02-0400 Body temperature 96.1 [degF] [employer] SHORT AND DAMAGE CLERK-C Jose Woodwardson OVER SHORT AND DAMAGE CLERK Work Phone: [facility] 10-28-2022 16:02-0400 Diastolic blood pressure 71 mm[Hg] [employer] SHORT AND DAMAGE CLERK-C Jose Loving OVER SHORT AND DAMAGE CLERK Work Phone: [facility] 10-28-2022 16:02-0400 Heart rate 92 /min [employer] SHORT AND DAMAGE CLERK-C Jose Loving OVER SHORT AND DAMAGE CLERK Work Phone: [facility] 10-28-2022 16:02-0400 Respiratory rate 16 /min [employer] SHORT AND DAMAGE CLERK-C Jose Loving OVER SHORT AND DAMAGE CLERK Work Phone: [facility] 10-28-2022 16:02-0400 SaO2% (BldA) [Mass fraction] 100 % OVER SHORT AND DAMAGE CLERK-C Jose Loving OVER SHORT AND DAMAGE CLERK Work Phone: [facility] 10-28-2022 16:02-0400 Systolic blood pressure 111 mm[Hg] OVER SHORT AND DAMAGE CLERK-C Jose Loving OVER SHORT AND DAMAGE CLERK Work Phone: [facility] 10-27-2022 09:08-0400 Body mass index (BMI) [Ratio] 28.5 kg/m2 [employer] SHORT AND DAMAGE CLERK-C Jose Woodwardson OVER SHORT AND DAMAGE CLERK Work Phone: [facility] 10-27-2022 09:08-0400 Body temperature 98.2 [degF] [employer] SHORT AND DAMAGE CLERK-C Jose Woodwardson OVER SHORT AND DAMAGE CLERK Work Phone: [facility] 10-27-2022 09:08-0400 Body weight 70.76 kg OVER SHORT AND DAMAGE CLERK-C Jose Loving OVER SHORT AND DAMAGE CLERK Work Phone: [facility] 10-27-2022 09:08-0400 Diastolic blood pressure 79 mm[Hg] OVER SHORT AND DAMAGE CLERK-C Jose Loving OVER SHORT AND DAMAGE CLERK Work Phone: [facility] 10-27-2022 09:08-0400 Heart rate 102 /min [employer] SHORT AND DAMAGE CLERK-C Jose Loving OVER SHORT AND DAMAGE CLERK Work Phone: [facility] 10-27-2022 09:08-0400 Respiratory rate 16 /min [employer] SHORT AND DAMAGE CLERK-C Jose Woodwardson OVER SHORT AND DAMAGE CLERK Work Phone: [facility] 10-27-2022 09:08-0400 SaO2% (BldA) [Mass fraction] 100 % OVER SHORT AND DAMAGE CLERK-C Jose Loving OVER SHORT AND DAMAGE CLERK Work Phone: [facility] 10-27-2022 09:08-0400 Systolic blood pressure 118 mm[Hg] OVER SHORT AND DAMAGE CLERK-C Jose Loving OVER SHORT AND DAMAGE CLERK Work Phone: [facility] 10-17-2022 16:09-0400 Body mass index (BMI) [Ratio] 26.7 kg/m2 OVER SHORT AND DAMAGE CLERK-C Jose Loving OVER SHORT AND DAMAGE CLERK Work Phone: [facility] 10-17-2022 16:09-0400 Body temperature 97.7 [degF] OVER SHORT AND DAMAGE CLERK-C Jose Woodwardson OVER SHORT AND DAMAGE CLERK Work Phone: [facility] 10-17-2022 16:09-0400 Body weight 68.49 kg OVER SHORT AND DAMAGE CLERK-C Jose Loving OVER SHORT AND DAMAGE CLERK Work Phone: [facility] 10-17-2022 16:09-0400 Diastolic blood pressure 60 mm[Hg] OVER SHORT AND DAMAGE CLERK-C Jose Woodwardson OVER SHORT AND DAMAGE CLERK Work Phone: [facility] 10-17-2022 16:09-0400 Heart rate 96 /min OVER SHORT AND DAMAGE CLERK-C Jose Loving OVER SHORT AND DAMAGE CLERK Work Phone: [facility] 10-17-2022 16:09-0400 Respiratory rate 18 /min OVER SHORT AND DAMAGE CLERK-C Jose Woodwardson OVER SHORT AND DAMAGE CLERK Work Phone: [facility] 10-17-2022 16:09-0400 SaO2% (BldA) [Mass fraction] 98 % OVER SHORT AND DAMAGE CLERK-C Jose Loving OVER SHORT AND DAMAGE CLERK Work Phone: [facility] 10-17-2022 16:09-0400 Systolic blood pressure 104 mm[Hg] OVER SHORT AND DAMAGE CLERK-C Jose Loving OVER SHORT AND DAMAGE CLERK Work Phone: [facility] 10-12-2022 16:34-0400 Respiratory rate 18 /min OVER SHORT AND DAMAGE CLERK-C Jose Loving OVER SHORT AND DAMAGE CLERK Work Phone: 5(196)[phone] [place] [address] 10-12-2022 14:16-0400 Diastolic blood pressure 76 mm[Hg] OVER SHORT AND DAMAGE CLERK-C Jose Loving OVER SHORT AND DAMAGE CLERK Work Phone: [facility] 10-12-2022 14:16-0400 Heart rate 96 /min OVER SHORT AND DAMAGE CLERK-C Jose Loving OVER SHORT AND DAMAGE CLERK Work Phone: [facility] 10-12-2022 14:16-0400 Systolic blood pressure 111 mm[Hg] OVER SHORT AND DAMAGE CLERK-C Jose Loving OVER SHORT AND DAMAGE CLERK Work Phone: [facility] 10-12-2022 13:57-0400 Body height 160.02 cm OVER SHORT AND DAMAGE CLERK-C Jose Loving OVER SHORT AND DAMAGE CLERK Work Phone: [facility] 10-12-2022 13:57-0400 Body mass index (BMI) [Ratio] 27.5 kg/m2 OVER SHORT AND DAMAGE CLERK-C Jose Loving OVER SHORT AND DAMAGE CLERK Work Phone: [facility] 10-12-2022 13:57-0400 Body temperature 97.2 [degF] OVER SHORT AND DAMAGE CLERK-C Jose Loving OVER SHORT AND DAMAGE CLERK Work Phone: [facility] 10-12-2022 13:57-0400 Body weight 70.44 kg OVER SHORT AND DAMAGE CLERK-C Jose Loving OVER SHORT AND DAMAGE CLERK Work Phone: [facility] 10-12-2022 13:57-0400 SaO2% (BldA) [Mass fraction] 98 % OVER SHORT AND DAMAGE CLERK-C Jose Loving OVER SHORT AND DAMAGE CLERK Work Phone: [facility] 10-07-2022 15:49-0400 Body temperature 97.2 [degF] OVER SHORT AND DAMAGE CLERK-C Jose Loving OVER SHORT AND DAMAGE CLERK Work Phone: [facility] 10-07-2022 15:49-0400 Diastolic blood pressure 78 mm[Hg] OVER SHORT AND DAMAGE CLERK-C Jose Loving OVER SHORT AND DAMAGE CLERK Work Phone: [facility] 10-07-2022 15:49-0400 Heart rate 84 /min OVER SHORT AND DAMAGE CLERK-C Jose Loving OVER SHORT AND DAMAGE CLERK Work Phone: [facility] 10-07-2022 15:49-0400 Respiratory rate 16 /min OVER SHORT AND DAMAGE CLERK-C oJse Loving OVER SHORT AND DAMAGE CLERK Work Phone: [facility] 10-07-2022 15:49-0400 Systolic blood pressure 122 mm[Hg] OVER SHORT AND DAMAGE CLERK-C Jose Loving OVER SHORT AND DAMAGE CLERK Work Phone: [facility] 10-06-2022 07:57-0400 Body mass index (BMI) [Ratio] 27.8 kg/m2 OVER SHORT AND DAMAGE CLERK-C Jose Loving OVER SHORT AND DAMAGE CLERK Work Phone: [facility] 10-06-2022 07:57-0400 Body temperature 96.7 [degF] OVER SHORT AND DAMAGE CLERK-C Jose Loving OVER SHORT AND DAMAGE CLERK Work Phone: [facility] 10-06-2022 07:57-0400 Body weight 71.32 kg OVER SHORT AND DAMAGE CLERK-C Jose Loving OVER SHORT AND DAMAGE CLERK Work Phone: [facility] 10-06-2022 07:57-0400 Diastolic blood pressure 76 mm[Hg] OVER SHORT AND DAMAGE CLERK-C Jose Loving OVER SHORT AND DAMAGE CLERK Work Phone: [facility] 10-06-2022 07:57-0400 Heart rate 86 /min OVER SHORT AND DAMAGE CLERK-C Jose Woodwardson OVER SHORT AND DAMAGE CLERK Work Phone: [facility] 10-06-2022 07:57-0400 Respiratory rate 16 /min OVER SHORT AND DAMAGE CLERK-C Jose Loving OVER SHORT AND DAMAGE CLERK Work Phone: [facility] 10-06-2022 07:57-0400 SaO2% (BldA) [Mass fraction] 99 % OVER SHORT AND DAMAGE CLERK-C Jose Loving OVER SHORT AND DAMAGE CLERK Work Phone: [facility] 10-06-2022 07:57-0400 Systolic blood pressure 123 mm[Hg] OVER SHORT AND DAMAGE CLERK-C Jose Woodwardson OVER SHORT AND DAMAGE CLERK Work Phone: [facility] 09-16-2022 16:01-0400 SaO2% (BldA) [Mass fraction] 100 % OVER SHORT AND DAMAGE CLERK-C Jose Loving OVER SHORT AND DAMAGE CLERK Work Phone: [facility] 09-15-2022 09:45-0400 Body mass index (BMI) [Ratio] 28.8 kg/m2 OVER SHORT AND DAMAGE CLERK-C Jose Loving OVER SHORT AND DAMAGE CLERK Work Phone: [facility] 09-15-2022 09:28-0400 Body mass index (BMI) [Ratio] 28.8 kg/m2 OVER SHORT AND DAMAGE CLERK-C Jose Loving OVER SHORT AND DAMAGE CLERK Work Phone: [facility] 09-15-2022 09:28-0400 Body temperature 98.4 [degF] OVER SHORT AND DAMAGE CLERK-C Jose Woodwardson OVER SHORT AND DAMAGE CLERK Work Phone: [facility] 09-15-2022 09:28-0400 Body weight 73.93 kg OVER SHORT AND DAMAGE CLERK-C Jose Woodwardson OVER SHORT AND DAMAGE CLERK Work Phone: [facility] 09-15-2022 09:28-0400 Diastolic blood pressure 58 mm[Hg] OVER SHORT AND DAMAGE CLERK-C Jose Loving OVER SHORT AND DAMAGE CLERK Work Phone: [facility] 09-15-2022 09:28-0400 Heart rate 91 /min OVER SHORT AND DAMAGE CLERK-C Jose Loving OVER SHORT AND DAMAGE CLERK Work Phone: [facility] 09-15-2022 09:28-0400 Respiratory rate 16 /min OVER SHORT AND DAMAGE CLERK-C Jose Loving OVER SHORT AND DAMAGE CLERK Work Phone: [facility] 09-15-2022 09:28-0400 SaO2% (BldA) [Mass fraction] 96 % OVER SHORT AND DAMAGE CLERK-C Jose Loving OVER SHORT AND DAMAGE CLERK Work Phone: [facility] 09-15-2022 09:28-0400 Systolic blood pressure 103 mm[Hg] OVER SHORT AND DAMAGE CLERK-C Jose Loving OVER SHORT AND DAMAGE CLERK Work Phone: [facility] 09-08-2022 08:02-0400 Body mass index (BMI) [Ratio] 29 kg/m2 OVER SHORT AND DAMAGE CLERK-C Jose Loving OVER SHORT AND DAMAGE CLERK Work Phone: [facility] 09-08-2022 08:02-0400 Body temperature 97 [degF] OVER SHORT AND DAMAGE CLERK-C Jose Loving OVER SHORT AND DAMAGE CLERK Work Phone: [facility] 09-08-2022 08:02-0400 Body weight 74.19 kg OVER SHORT AND DAMAGE CLERK-C Jose Loving OVER SHORT AND DAMAGE CLERK Work Phone: [facility] 09-08-2022 08:02-0400 Diastolic blood pressure 71 mm[Hg] OVER SHORT AND DAMAGE CLERK-C Jose Loving OVER SHORT AND DAMAGE CLERK Work Phone: [facility] 09-08-2022 08:02-0400 Heart rate 84 /min OVER SHORT AND DAMAGE CLERK-C Jose Loving OVER SHORT AND DAMAGE CLERK Work Phone: [facility] 09-08-2022 08:02-0400 Respiratory rate 16 /min OVER SHORT AND DAMAGE CLERK-C Jose Loving OVER SHORT AND DAMAGE CLERK Work Phone: [facility] 09-08-2022 08:02-0400 SaO2% (BldA) [Mass fraction] 98 % OVER SHORT AND DAMAGE CLERK-C Jose Loving OVER SHORT AND DAMAGE CLERK Work Phone: [facility] 09-08-2022 08:02-0400 Systolic blood pressure 108 mm[Hg] OVER SHORT AND DAMAGE CLERK-C Jose Loving OVER SHORT AND DAMAGE CLERK Work Phone: [facility] 08-26-2022 09:17-0400 Body mass index (BMI) [Ratio] 28.7 kg/m2 OVER SHORT AND DAMAGE CLERK-C Jose Loving OVER SHORT AND DAMAGE CLERK Work Phone: [facility] 08-26-2022 09:17-0400 Body temperature 98.3 [degF] OVER SHORT AND DAMAGE CLERK-C Jose Loving OVER SHORT AND DAMAGE CLERK Work Phone: [facility] 08-26-2022 09:17-0400 Body weight 73.48 kg OVER SHORT AND DAMAGE CLERK-C Jose Loving OVER SHORT AND DAMAGE CLERK Work Phone: 0(787)613-860890 [address] 08-26-2022 09:17-0400 Diastolic blood pressure 80 mm[Hg] OVER SHORT AND DAMAGE CLERK-C Jose Loving OVER SHORT AND DAMAGE CLERK Work Phone: 0(753)264-177345 [place] [address] 08-26-2022 09:17-0400 Heart rate 89 /min OVER SHORT AND DAMAGE CLERK-C Jose Loving OVER SHORT AND DAMAGE CLERK Work Phone: 4(310)411-053345 [place] [address] 08-26-2022 09:17-0400 Respiratory rate 16 /min OVER SHORT AND DAMAGE CLERK-C Jose Loving OVER SHORT AND DAMAGE CLERK Work Phone: 5(888)326-674945 [place] [address] 08-26-2022 09:17-0400 SaO2% (BldA) [Mass fraction] 100 % OVER SHORT AND DAMAGE CLERK-C Jose Loving OVER SHORT AND DAMAGE CLERK Work Phone: 0(619)288-978945 [place] [address] 08-26-2022 09:17-0400 Systolic blood pressure 125 mm[Hg] OVER SHORT AND DAMAGE CLERK-C Jose Loving OVER SHORT AND DAMAGE CLERK Work Phone: 2(598)621-390145 [place] [address] 08-18-2022 17:02-0400 Body height 160.02 cm OVER SHORT AND DAMAGE CLERK-C Jose Loving OVER SHORT AND DAMAGE CLERK Work Phone: 9(558)200-220645 [place] [address] 08-18-2022 17:02-0400 Body mass index (BMI) [Ratio] 28.7 kg/m2 OVER SHORT AND DAMAGE CLERK-C Jose Loving OVER SHORT AND DAMAGE CLERK Work Phone: 4(947)743-790045 [place] [address] 08-18-2022 17:02-0400 Body temperature 98.1 [degF] OVER SHORT AND DAMAGE CLERK-C Jose Loving OVER SHORT AND DAMAGE CLERK Work Phone: 2(507)479-651345 [place] [address] 08-18-2022 17:02-0400 Body weight 73.48 kg OVER SHORT AND DAMAGE CLERK-C Jose Loving OVER SHORT AND DAMAGE CLERK Work Phone: 4(983)134-089945 [place] [address] 08-18-2022 17:02-0400 Diastolic blood pressure 60 mm[Hg] OVER SHORT AND DAMAGE CLERK-C Jose Loving OVER SHORT AND DAMAGE CLERK Work Phone: 8(011)896-702745 [place] [address] 08-18-2022 17:02-0400 Heart rate 83 /min OVER SHORT AND DAMAGE CLERK-C Jose Loving OVER SHORT AND DAMAGE CLERK Work Phone: 6(291)946-947179 [place] [address] 08-18-2022 17:02-0400 Respiratory rate 18 /min OVER SHORT AND DAMAGE CLERK-C Jose Loving OVER SHORT AND DAMAGE CLERK Work Phone: [facility] 08-18-2022 17:02-0400 SaO2% (BldA) [Mass fraction] 98 % OVER SHORT AND DAMAGE CLERK-C Jose Loving OVER SHORT AND DAMAGE CLERK Work Phone: [facility] 08-18-2022 17:02-0400 Systolic blood pressure 90 mm[Hg] OVER SHORT AND DAMAGE CLERK-C Jose Loving OVER SHORT AND DAMAGE CLERK Work Phone: [facility] 08-14-2022 08:03-0400 Body mass index (BMI) [Ratio] 29.8 kg/m2 OVER SHORT AND DAMAGE CLERK-C Jose Loving OVER SHORT AND DAMAGE CLERK Work Phone: [facility] 08-14-2022 08:03-0400 Body temperature 98.2 [degF] OVER SHORT AND DAMAGE CLERK-C Jose Loving OVER SHORT AND DAMAGE CLERK Work Phone: [facility] 08-14-2022 08:03-0400 Body weight 74.07 kg OVER SHORT AND DAMAGE CLERK-C Jose Loving OVER SHORT AND DAMAGE CLERK Work Phone: [facility] 08-14-2022 08:03-0400 Diastolic blood pressure 79 mm[Hg] OVER SHORT AND DAMAGE CLERK-C Jose Loving OVER SHORT AND DAMAGE CLERK Work Phone: [facility] 08-14-2022 08:03-0400 Heart rate 82 /min OVER SHORT AND DAMAGE CLERK-C Jose Loving OVER SHORT AND DAMAGE CLERK Work Phone: [facility] 08-14-2022 08:03-0400 Respiratory rate 16 /min OVER SHORT AND DAMAGE CLERK-C Jose Loving OVER SHORT AND DAMAGE CLERK Work Phone: [facility] 08-14-2022 08:03-0400 SaO2% (BldA) [Mass fraction] 100 % OVER SHORT AND DAMAGE CLERK-C Jose Loving OVER SHORT AND DAMAGE CLERK Work Phone: [facility] 08-14-2022 08:03-0400 Systolic blood pressure 111 mm[Hg] OVER SHORT AND DAMAGE CLERK-C Jose Loving OVER SHORT AND DAMAGE CLERK Work Phone: [facility] 08-04-2022 08:33-0400 Body height 157.48 cm OVER SHORT AND DAMAGE CLERK-C Jose Loving OVER SHORT AND DAMAGE CLERK Work Phone: [facility] 08-04-2022 08:33-0400 Body mass index (BMI) [Ratio] 30.3 kg/m2 OVER SHORT AND DAMAGE CLERK-C Jose Loving OVER SHORT AND DAMAGE CLERK Work Phone: [facility] 08-04-2022 08:33-0400 Body weight 75.29 kg OVER SHORT AND DAMAGE CLERK-C Jose Loving OVER SHORT AND DAMAGE CLERK Work Phone: [facility] 08-04-2022 08:12-0400 Body mass index (BMI) [Ratio] 30.3 kg/m2 OVER SHORT AND DAMAGE CLERK-C Jose Loving OVER SHORT AND DAMAGE CLERK Work Phone: [facility] 08-04-2022 08:12-0400 Body temperature 98.3 [degF] OVER SHORT AND DAMAGE CLERK-C Jose Woodwardson OVER SHORT AND DAMAGE CLERK Work Phone: [facility] 08-04-2022 08:12-0400 Body weight 75.29 kg OVER SHORT AND DAMAGE CLERK-C Jose Loving OVER SHORT AND DAMAGE CLERK Work Phone: [facility] 08-04-2022 08:12-0400 Diastolic blood pressure 86 mm[Hg] OVER SHORT AND DAMAGE CLERK-C Jose Loving OVER SHORT AND DAMAGE CLERK Work Phone: [facility] 08-04-2022 08:12-0400 Heart rate 90 /min OVER SHORT AND DAMAGE CLERK-C Jose Loving OVER SHORT AND DAMAGE CLERK Work Phone: [facility] 08-04-2022 08:12-0400 Systolic blood pressure 130 mm[Hg] OVER SHORT AND DAMAGE CLERK-C Jose Loving OVER SHORT AND DAMAGE CLERK Work Phone: [facility] 07-31-2022 10:00-0400 Body temperature 97.8 [degF] OVER SHORT AND DAMAGE CLERK-C Josetom WoodwardLoving OVER SHORT AND DAMAGE CLERK Work Phone: [facility] 07-31-2022 10:00-0400 Diastolic blood pressure 60 mm[Hg] OVER SHORT AND DAMAGE CLERK-C Jose Loving OVER SHORT AND DAMAGE CLERK Work Phone: [facility] 07-31-2022 10:00-0400 Heart rate 80 /min OVER SHORT AND DAMAGE CLERK-C Jose Woodwardson OVER SHORT AND DAMAGE CLERK Work Phone: [facility] 07-31-2022 10:00-0400 Respiratory rate 16 /min OVER SHORT AND DAMAGE CLERK-C Jose Loving OVER SHORT AND DAMAGE CLERK Work Phone: [facility] 07-31-2022 10:00-0400 SaO2% (BldA) [Mass fraction] 93 % OVER SHORT AND DAMAGE CLERK-C Jose Loving OVER SHORT AND DAMAGE CLERK Work Phone: [facility] 07-31-2022 10:00-0400 Systolic blood pressure 98 mm[Hg] OVER SHORT AND DAMAGE CLERK-C Jose Loving OVER SHORT AND DAMAGE CLERK Work Phone: [facility] 07-31-2022 07:44-0400 Body height 157.48 cm OVER SHORT AND DAMAGE CLERK-C Jose Loving OVER SHORT AND DAMAGE CLERK Work Phone: [facility] 07-31-2022 07:44-0400 Body mass index (BMI) [Ratio] 30.5 kg/m2 OVER SHORT AND DAMAGE CLERK-C Jose Loving OVER SHORT AND DAMAGE CLERK Work Phone: [phone] [place] [address] 07-31-2022 07:44-0400 Body weight 75.74 kg OVER SHORT AND DAMAGE CLERK-C Jose Loving OVER SHORT AND DAMAGE CLERK Work Phone: [facility] 07-24-2022 09:22-0400 Body mass index (BMI) [Ratio] 30.2 kg/m2 OVER SHORT AND DAMAGE CLERK-C Jose Loving OVER SHORT AND DAMAGE CLERK Work Phone: [facility] 07-24-2022 09:22-0400 Body temperature 97.4 [degF] OVER SHORT AND DAMAGE CLERK-C Jose Loving OVER SHORT AND DAMAGE CLERK Work Phone: [facility] 07-24-2022 09:22-0400 Body weight 74.84 kg OVER SHORT AND DAMAGE CLERK-C Jose Loving OVER SHORT AND DAMAGE CLERK Work Phone: [facility] 07-24-2022 09:22-0400 Diastolic blood pressure 89 mm[Hg] OVER SHORT AND DAMAGE CLERK-C Jose Woodwardson OVER SHORT AND DAMAGE CLERK Work Phone: [facility] 07-24-2022 09:22-0400 Heart rate 75 /min OVER SHORT AND DAMAGE CLERK-C Jose Loving OVER SHORT AND DAMAGE CLERK Work Phone: [facility] 07-24-2022 09:22-0400 Respiratory rate 18 /min OVER SHORT AND DAMAGE CLERK-C Jose Loving OVER SHORT AND DAMAGE CLERK Work Phone: [facility] 07-24-2022 09:22-0400 SaO2% (BldA) [Mass fraction] 100 % OVER SHORT AND DAMAGE CLERK-C Jose Loving OVER SHORT AND DAMAGE CLERK Work Phone: [facility] 07-24-2022 09:22-0400 Systolic blood pressure 133 mm[Hg] OVER SHORT AND DAMAGE CLERK-C Jose Loving OVER SHORT AND DAMAGE CLERK Work Phone: [facility] 07-21-2022 15:32-0400 Body mass index (BMI) [Ratio] 30.5 kg/m2 [employer] SHORT AND DAMAGE CLERK-C Jose Loving OVER SHORT AND DAMAGE CLERK Work Phone: [phone] [place] [address] 07-21-2022 15:32-0400 Body temperature 96.6 [degF] OVER SHORT AND DAMAGE CLERK-C Jose Loving OVER SHORT AND DAMAGE CLERK Work Phone: [facility] 07-21-2022 15:32-0400 Body weight 75.77 kg OVER SHORT AND DAMAGE CLERK-C Jose Loving OVER SHORT AND DAMAGE CLERK Work Phone: [facility] 07-21-2022 15:32-0400 Diastolic blood pressure 88 mm[Hg] OVER SHORT AND DAMAGE CLERK-C Jose Loving OVER SHORT AND DAMAGE CLERK Work Phone: [facility] 07-21-2022 15:32-0400 Heart rate 75 /min OVER SHORT AND DAMAGE CLERK-C Jose Loving OVER SHORT AND DAMAGE CLERK Work Phone: [facility] 07-21-2022 15:32-0400 Respiratory rate 16 /min OVER SHORT AND DAMAGE CLERK-C Jose Loving OVER SHORT AND DAMAGE CLERK Work Phone: [facility] 07-21-2022 15:32-0400 SaO2% (BldA) [Mass fraction] 98 % OVER SHORT AND DAMAGE CLERK-C Jose Loving OVER SHORT AND DAMAGE CLERK Work Phone: [facility] 07-21-2022 15:32-0400 Systolic blood pressure 124 mm[Hg] OVER SHORT AND DAMAGE CLERK-C Jose Loving OVER SHORT AND DAMAGE CLERK Work Phone: [facility] 07-15-2022 11:33-0400 Body height 157.48 cm OVER SHORT AND DAMAGE CLERK-C Jose Inder OVER SHORT AND DAMAGE CLERK Work Phone: [facility] 07-15-2022 11:33-0400 Body mass index (BMI) [Ratio] 31.3 kg/m2 OVER SHORT AND DAMAGE CLERK-C Jose Loving OVER SHORT AND DAMAGE CLERK Work Phone: [facility] 07-15-2022 11:33-0400 Body temperature 97.4 [degF] OVER SHORT AND DAMAGE CLERK-C Jose Loving OVER SHORT AND DAMAGE CLERK Work Phone: [facility] 07-15-2022 11:33-0400 Body weight 77.62 kg OVER SHORT AND DAMAGE CLERK-C Jose Loving OVER SHORT AND DAMAGE CLERK Work Phone: [facility] 07-15-2022 11:33-0400 Diastolic blood pressure 83 mm[Hg] OVER SHORT AND DAMAGE CLERK-C Jose Loving OVER SHORT AND DAMAGE CLERK Work Phone: [phone] [place] [address] 07-15-2022 11:33-0400 Heart rate 81 /min OVER SHORT AND DAMAGE CLERK-C Jose Loving OVER SHORT AND DAMAGE CLERK Work Phone: [facility] 07-15-2022 11:33-0400 Respiratory rate 18 /min OVER SHORT AND DAMAGE CLERK-C Jose Loving OVER SHORT AND DAMAGE CLERK Work Phone: [facility] 07-15-2022 11:33-0400 SaO2% (BldA) [Mass fraction] 98 % OVER SHORT AND DAMAGE CLERK-C Jose Loving OVER SHORT AND DAMAGE CLERK Work Phone: [facility] 07-15-2022 11:33-0400 Systolic blood pressure 125 mm[Hg] OVER SHORT AND DAMAGE CLERK-C Jose Loving OVER SHORT AND DAMAGE CLERK Work Phone: [facility] 06-27-2022 13:21-0400 Body height 157.48 cm OVER SHORT AND DAMAGE CLERK-C Jose Loving OVER SHORT AND DAMAGE CLERK Work Phone: [facility] 06-27-2022 13:21-0400 Body mass index (BMI) [Ratio] 30.9 kg/m2 [employer] SHORT AND DAMAGE CLERK-C Jose Loving OVER SHORT AND DAMAGE CLERK Work Phone: [facility] 06-27-2022 13:21-0400 Body weight 76.65 kg OVER SHORT AND DAMAGE CLERK-C Jose Loving OVER SHORT AND DAMAGE CLERK Work Phone: [facility] 06-27-2022 13:21-0400 Diastolic blood pressure 82 mm[Hg] OVER SHORT AND DAMAGE CLERK-C Jose Loving OVER SHORT AND DAMAGE CLERK Work Phone: [facility] 06-27-2022 13:21-0400 Heart rate 76 /min OVER SHORT AND DAMAGE CLERK-C Jose Loving OVER SHORT AND DAMAGE CLERK Work Phone: [facility] 06-27-2022 13:21-0400 Respiratory rate 17 /min OVER SHORT AND DAMAGE CLERK-C Jose Lovign OVER SHORT AND DAMAGE CLERK Work Phone: [facility] 06-27-2022 13:21-0400 SaO2% (BldA) [Mass fraction] 98 % OVER SHORT AND DAMAGE CLERK-C Jose Loving OVER SHORT AND DAMAGE CLERK Work Phone: [facility] 06-27-2022 13:21-0400 Systolic blood pressure 128 mm[Hg] OVER SHORT AND DAMAGE CLERK-C Jose Loving OVER SHORT AND DAMAGE CLERK Work Phone: [facility] 06-02-2022 16:56-0500 Body mass index (BMI) [Ratio] 30.2 kg/m2 OVER SHORT AND DAMAGE CLERK-C Jose Loving OVER SHORT AND DAMAGE CLERK Work Phone: [facility] 06-02-2022 16:56-0500 Body temperature 97.9 [degF] OVER SHORT AND DAMAGE CLERK-C Jose Loving OVER SHORT AND DAMAGE CLERK Work Phone: [facility] 06-02-2022 16:56-0500 Body weight 74.84 kg OVER SHORT AND DAMAGE CLERK-C Jose Loving OVER SHORT AND DAMAGE CLERK Work Phone: [facility] 06-02-2022 16:56-0500 Diastolic blood pressure 60 mm[Hg] OVER SHORT AND DAMAGE CLERK-C Jose Loving OVER SHORT AND DAMAGE CLERK Work Phone: [facility] 06-02-2022 16:56-0500 Heart rate 76 /min OVER SHORT AND DAMAGE CLERK-C Jose Loving OVER SHORT AND DAMAGE CLERK Work Phone: [facility] 06-02-2022 16:56-0500 Respiratory rate 18 /min OVER SHORT AND DAMAGE CLERK-C Jose Loving OVER SHORT AND DAMAGE CLERK Work Phone: [facility] 06-02-2022 16:56-0500 SaO2% (BldA) [Mass fraction] 95 % OVER SHORT AND DAMAGE CLERKKaela Loving OVER SHORT AND DAMAGE CLERK Work Phone: [facility] 06-02-2022 16:56-0500 Systolic blood pressure 115 mm[Hg] ZAC Loving OVER SHORT AND DAMAGE CLERK Work Phone: [facility] 04-21-2022 17:12-0500 Body height 157.48 cm [facility] [place] 04-21-2022 17:12-0500 Body mass index (BMI) [Ratio] 30.3 kg/m2 [facility] 04-21-2022 17:12-0500 Body temperature 97.7 [degF] [facility] 04-21-2022 17:12-0500 Body weight 75.29 kg [facility] [place] 04-21-2022 17:12-0500 Diastolic blood pressure 60 mm[Hg] [facility] 04-21-2022 17:12-0500 Heart rate 84 /min [facility] 04-21-2022 17:12-0500 Respiratory rate 18 /min [facility] 04-21-2022 17:12-0500 SaO2% (BldA) [Mass fraction] 97 % [facility] 04-21-2022 17:12-0500 Systolic blood pressure 115 mm[Hg] [facility] 02-24-2022 17:11-0500 Body mass index (BMI) [Ratio] 31.4 kg/m2 [facility] 02-24-2022 17:11-0500 Body temperature 97.9 [degF] [facility] 02-24-2022 17:11-0500 Body weight 78.01 kg [facility] [place] 02-24-2022 17:11-0500 Diastolic blood pressure 60 mm[Hg] [facility] 02-24-2022 17:11-0500 Heart rate 90 /min [facility] 02-24-2022 17:11-0500 Respiratory rate 18 /min [facility] 02-24-2022 17:11-0500 SaO2% (BldA) [Mass fraction] 97 % [facility] 02-24-2022 17:11-0500 Systolic blood pressure 90 mm[Hg] [facility] 06-11-2021 20:48-0400 Body height 157.48 cm [facility] Work Phone: 06-11-2021 20:48-0400 Body mass index (BMI) [Ratio] 30.9 kg/m2 [facility] Work Phone: 06-11-2021 20:48-0400 Body temperature 97.8 [degF] [facility] Work Phone: 06-11-2021 20:48-0400 Body weight 76.65 kg [facility] [place] Work Phone: 06-11-2021 20:48-0400 Diastolic blood pressure 60 mm[Hg] [facility] Work Phone: 06-11-2021 20:48-0400 Heart rate 87 /min [facility] [place] Work Phone: 06-11-2021 20:48-0400 Respiratory rate 18 /min [facility] Work Phone: 06-11-2021 20:48-0400 SaO2% (BldA) [Mass fraction] 97 % [facility] Work Phone: 06-11-2021 20:48-0400 Systolic blood pressure 118 mm[Hg] [facility] Work Phone: 03-25-2021 15:08-0500 Body mass index (BMI) [Ratio] 29.9 kg/m2 [facility] Work Phone: 03-25-2021 15:08-0500 Body temperature 100.2 [degF] [facility] Work Phone: 03-25-2021 15:08-0500 Body weight 74.38 kg [facility] [place] Work Phone: 03-25-2021 15:08-0500 Diastolic blood pressure 60 mm[Hg] [facility] Work Phone: 03-25-2021 15:08-0500 Heart rate 91 /min [facility] [place] Work Phone: 03-25-2021 15:08-0500 Respiratory rate 18 /min [facility] Work Phone: 03-25-2021 15:08-0500 SaO2% (BldA) [Mass fraction] 99 % [facility] Work Phone: 03-25-2021 15:08-0500 Systolic blood pressure 110 mm[Hg] [facility] Work Phone: 02-28-2021 17:40-0500 Body mass index (BMI) [Ratio] 29.6 kg/m2 [facility] Work Phone: 02-28-2021 17:40-0500 Body temperature 97.7 [degF] [facility] Work Phone: 02-28-2021 17:40-0500 Body weight 73.48 kg [facility] [place] Work Phone: 02-28-2021 17:40-0500 Diastolic blood pressure 70 mm[Hg] [facility] Work Phone: 02-28-2021 17:40-0500 Heart rate 84 /min [facility] [place] Work Phone: 02-28-2021 17:40-0500 Respiratory rate 18 /min [facility] Work Phone: 02-28-2021 17:40-0500 SaO2% (BldA) [Mass fraction] 98 % [facility] Work Phone: 02-28-2021 17:40-0500 Systolic blood pressure 110 mm[Hg] [facility] Work Phone: 11-21-2020 22:27-0400 Diastolic blood pressure 78 mm[Hg] Ambika Jones MD Work Phone: [facility] Work Phone: 11-21-2020 22:27-0400 Heart rate 53 /min Ambika Jones MD Work Phone: [facility] Work Phone: 11-21-2020 22:27-0400 Respiratory rate 14 /min Ambika Jones MD Work Phone: [facility] Work Phone: 11-21-2020 22:27-0400 SaO2% (BldA) [Mass fraction] 97 % Ambika Jones MD Work Phone: [facility] Work Phone: 11-21-2020 22:27-0400 Systolic blood pressure 125 mm[Hg] Ambika Jones MD Work Phone: [facility] Work Phone: 11-21-2020 20:25-0400 Body height 157.5 cm Ambika Jones MD Work Phone: [facility] Work Phone: 11-21-2020 20:25-0400 Body mass index (BMI) [Ratio] 29.26 kg/m2 Ambika Jones MD Work Phone: [facility] Work Phone: 11-21-2020 20:25-0400 Body temperature 97 [degF] Ambika Jones MD Work Phone: [facility] Work Phone: 11-21-2020 20:25-0400 Body weight 72.58 kg Ambika Jones MD Work Phone: [facility] Work Phone: Encounters Encounter Date Encounter Type Care Provider Facility Start: 12-29-2024 End: 12-29-2024 Dr. Myrna Szymanski MD -[facility] Work Phone: Start: 12-29-2024 End: 12-29-2024 ambulatory Jose Loving OVER SHORT AND DAMAGE CLERK-C Work Phone: -[facility] Start: 12-29-2024 Dr. Myrna dela cruz MD -[facility] Start: 12-29-2024 ambulatory Jose Loving OVER SHORT AND DAMAGE CLERK Faci lity:[facility] Start: 12-23-2024 End: 12-23-[address] Mary Jo Deshpande MD -[facility] Work Phone: Start: 12-23-2024 End: 12-23-2024 Dr. Mary Jo Deshpande MD -[facility] Work Phone: Start: 12-23-2024 End: 12-23-2024 ambulatory Jose Loving OVER SHORT AND DAMAGE CLERK-C Work Phone: -[facility] Start: 10-03-2024 End: 10-03-2024 ambulatory Jose Loving OVER SHORT AND DAMAGE CLERK-C Work Phone: -Laboratory Start: 10-03-2024 End: 10-03-2024 Patient encounter procedure Willy Guardado OVER SHORT AND DAMAGE CLERK-C -Laboratory Work Phone: Start: 10-03-2024 End: 10-03-2024 Willy Guardado OVER SHORT AND DAMAGE CLERK-C -Laboratory Work Phone: Start: 10-03-2024 End: 10-03-2024 ambulatory Willy Guardado Facility:[facility] Start: 09-15-2024 End: 09-15-2024 Patient encounter procedure Willy Guardado OVER SHORT AND DAMAGE CLERK-C -[facility] Work Phone: Start: 09-15-2024 End: 09-15-2024 Willy Guardado OVER SHORT AND DAMAGE CLERK-C -[facility] Work Phone: Start: 09-15-2024 End: 09-15-2024 ambulatory Jose Loving OVER SHORT AND DAMAGE CLERK-C Work Phone: [facility] Work Phone: Start: 09-15-2024 End: 09-15-2024 Patient encounter procedure Arelis Wang OVER SHORT AND DAMAGE CLERK-C -[facility] Work Phone: Start: 09-15-2024 End: 09-15-2024 Arelis Wang OVER SHORT AND DAMAGE CLERK-C -[facility] Work Phone: Start: 09-15-2024 End: 09-15-2024 ambulatory Jose Loving OVER SHORT AND DAMAGE CLERK-C Work Phone: [facility] Work Phone: Start: 09-14-[address] Tona Szymanski MD -[facility] Start: 09-14-2024 Dr. Myrna dela cruz MD -[facility] Start: 07-11-2024 End: 07-11-2024 ambulatory Jose Loving OVER SHORT AND DAMAGE CLERK-C Work Phone: [facility] Work Phone: Start: 07-11-2024 End: 07-11-[address] Mariano Karimi DO -[facility] Work Phone: Start: 07-11-2024 End: 07-11-2024 Dr. Mariano Karimi DO -[facility]patient [facility] Work Phone: Start: 07-11-2024 End: 07-11-2024 ambulatory Jose Loving OVER SHORT AND DAMAGE CLERK Facility:[facility] Start: 06-26-2024 End: 06-26-2024 Dr. Elvin Dennis -Emergency Departmen t Work Phone: Start: 06-26-2024 End: 06-26-2024 Emergency department patient visit Jose Inder OVER SHORT AND DAMAGE CLERK-C Work Phone: -Emergency Department Work Phone: Start: 06-22-2024 End: 06-22-2024 Patient encounter procedure Willy Guardado OVER SHORT AND DAMAGE CLERK-C -[facility] Work Phone: Start: 06-22-2024 End: 06-22-2024 Willy Guardado OVER SHORT AND DAMAGE CLERK-C -[facility] Work Phone: Start: 06-22-2024 End: 06-22-2024 ambulatory Jose Loving OVER SHORT AND DAMAGE CLERK Facility:[facility] Start: 05-16-2024 End: 05-16-2024 Patient encounter procedure Arelis Wang OVER SHORT AND DAMAGE CLERK-C -[facility] Work Phone: Start: 05-16-2024 End: 05-16-2024 ambulatory Jose Loving OVER SHORT AND DAMAGE CLERK Facility:[facility] Start: 04-18-2024 End: 04-18-[address] Mariano Karimi DO -[facility] Work Phone: Start: 04-18-2024 End: 04-18-2024 ambulatory Jose Loving OVER SHORT AND DAMAGE CLERK Facility:[facility] Start: 03-31-2024 Encounter for other preprocedural examination Arelis Wang NP [facility] Start: 03-18-2024 End: 03-18-[address] Ulises Cole MD -[facility] Work Phone: Start: 03-18-2024 End: 03-18-2024 ambulatory Jose Loving OVER SHORT AND DAMAGE CLERK Facility:[facility] Start: 03-14-2024 End: 03-14-[address] Reba Lopez DO [facility] Work Phone: Start: 03-14-2024 End: 03-14-2024 ambulatory Jose Loving OVER SHORT AND DAMAGE CLERK Facility:[facility] Start: 02-29-2024 End: 02-29-[address] Myrna Szymanski MD -[facility] Work Phone: Start: 02-29-2024 End: 02-29-2024 ambulatory Jose Loving OVER SHORT AND DAMAGE CLERK Facility:[facility] Start: 02-29-2024 Non-patient / Non-visit Dr. Cherie VALLES -[facility] Start: 02-29-2024 End: 02-29-2024 Patient encounter procedure Arelis Wang OVER SHORT AND DAMAGE CLERK-C -Cardiovascular Services Work Phone: Start: 02-29-2024 End: 02-29-2024 ambulatory Jose Loving OVER SHORT AND DAMAGE CLERK Facility:[facility] Start: 02-22-2024 End: 02-22-2024 ambulatory Jose Loving OVER SHORT AND DAMAGE CLERK Facility:[facility] Start: 07-30-2023 End: 07-30-2023 ambulatory OVER SHORT AND DAMAGE CLERK-C Jose Loving OVER SHORT AND DAMAGE CLERK Work Phone: [facility] Work Phone: Start: 07-30-2023 End: 07-30-2023 Patient encounter procedure OVER SHORT AND DAMAGE CLERK-C Jose Loving OVER SHORT AND DAMAGE CLERK Work Phone: [facility] Work Phone: Start: 07-30-2023 Registered Recurring OVER SHORT AND DAMAGE CLERK-Ronaldo Loving OVER SHORT AND DAMAGE CLERK [facility] Start: 07-30-2023 End: 07-30-2023 Patient encounter procedure OVER SHORT AND DAMAGE CLERK-C Jose Loving OVER SHORT AND DAMAGE CLERK Work Phone: [facility] Work Phone: Start: 07-20-2023 End: 07-20-2023 ambulatory OVER SHORT AND DAMAGE CLERK-C Jose Loving OVER SHORT AND DAMAGE CLERK Work Phone: [facility] Work Phone: Start: 07-20-2023 End: 07-20-2023 Patient encounter procedure OVER SHORT AND DAMAGE CLERK-C Jose Loving OVER SHORT AND DAMAGE CLERK Work Phone: [facility] Work Phone: Start: 07-09-2023 Non-patient / Non-visit OVER SHORT AND DAMAGE CLERK-C Chloe Loving OVER SHORT AND DAMAGE CLERK Work Phone: [facility] Start: 07-09-2023 End: 07-09-2023 ambulatory OVER SHORT AND DAMAGE CLERK-C Jose Loving OVER SHORT AND DAMAGE CLERK Work Phone: [facility] Work Phone: Start: 07-09-2023 End: 07-09-2023 Patient encounter procedure OVER SHORT AND DAMAGE CLERK-C Jose Loving OVER SHORT AND DAMAGE CLERK Work Phone: [facility]-Cardiovascular Services Work Phone: Start: 07-09-2023 End: 07-09-2023 ambulatory OVER SHORT AND DAMAGE CLERK-C Jose Loving OVER SHORT AND DAMAGE CLERK Work Phone: [facility] Work Phone: Start: 07-09-2023 End: 07-09-2023 Patient encounter procedure OVER SHORT AND DAMAGE CLERK-C Jose Loving OVER SHORT AND DAMAGE CLERK Work Phone: [facility]-Ultrasound, [facility] Work Phone: Start: 07-09-2023 Registered Recurring OVER SHORT AND DAMAGE CLERK-C Jose Loving OVER SHORT AND DAMAGE CLERK Work Phone: [facility] Start: 07-09-2023 End: 07-09-2023 Patient encounter procedure OVER SHORT AND DAMAGE CLERK-Ronaldo Loving OVER SHORT AND DAMAGE CLERK Work Phone: [facility] Work Phone: Start: 06-18-2023 End: 06-18-2023 Patient encounter procedure OVER SHORT AND DAMAGE CLERK-Ronaldo Loving OVER SHORT AND DAMAGE CLERK Work Phone: [facility] Work Phone: Start: 05-28-2023 End: 05-28-2023 Patient encounter procedure OVER SHORT AND DAMAGE CLERK-C Jose Loving OVER SHORT AND DAMAGE CLERK Work Phone: [facility] Work Phone: Start: 05-18-2023 End: 05-18-2023 ambulatory OVER SHORT AND DAMAGE CLERK-C Jose Loving OVER SHORT AND DAMAGE CLERK Work Phone: [facility] Work Phone: Start: 05-18-2023 End: 05-18-2023 Patient encounter procedure OVER SHORT AND DAMAGE CLERK-C Jose Loving OVER SHORT AND DAMAGE CLERK Work Phone: [facility]-Laboratory, Specimen Work Phone: Start: 05-18-2023 End: 05-18-2023 Patient encounter procedure OVER SHORT AND DAMAGE CLERK-Ronlado Loving OVER SHORT AND DAMAGE CLERK Work Phone: [facility] Work Phone: Start: 05-07-2023 Registered Recurring OVER SHORT AND DAMAGE CLERK-Ronaldo Loving OVER SHORT AND DAMAGE CLERK Work Phone: [facility] Start: 05-07-2023 End: 05-07-2023 Patient encounter procedure OVER SHORT AND DAMAGE CLERK-C Jose Loving OVER SHORT AND DAMAGE CLERK Work Phone: [facility] Work Phone: Start: 04-16-2023 End: 04-16-[address] Mary Jo Deshpande Work Phone: [facility] Work Phone: Start: 04-16-2023 End: 04-16-[address] Mary Jo Deshpande Work Phone: [facility]-Laboratory, Specimen Work Phone: Start: 04-16-2023 End: 04-16-[address] Mary Jo Deshpande Work Phone: [facility] Work Phone: Start: 04-16-[address] Nasima Deshpande Work Phone: [facility] Start: 04-13-2023 Non-patient / Non-visit Dr. Mario Deshpande Work Phone: [facility] Start: 04-13-2023 End: 04-13-[address] Mary Jo Deshpande Work Phone: [facility] Work Phone: Start: 04-13-2023 End: 04-13-[address] Mary Jo Deshpande Work Phone: [facility] Work Phone: Start: 03-26-2023 End: 03-26-2023 ambulatory EDDI-Ronaldo Loving OVER SHORT AND DAMAGE CLERK Work Phone: [facility] Work Phone: Start: 03-26-2023 End: 03-26-2023 Patient encounter procedure ZAC Loving OVER SHORT AND DAMAGE CLERK Work Phone: [facility]-Outpatient Bone Densitometry Work Phone: Start: 03-25-2023 Registered Recurring ZAC Loving OVER SHORT AND DAMAGE CLERK Work Phone: [facility] Start: 03-25-2023 End: 03-25-2023 Patient encounter procedure OVER SHORT AND DAMAGE CLERK-C Josetom WoodwardLoving OVER SHORT AND DAMAGE CLERK Work Phone: [facility] Work Phone: Start: 03-05-2023 End: 03-05-2023 Patient encounter procedure OVER SHORT AND DAMAGE CLERK-C Jose Woodwardson OVER SHORT AND DAMAGE CLERK Work Phone: [facility] Work Phone: Start: 03-02-2023 End: 03-02-2023 Patient encounter procedure OVER SHORT AND DAMAGE CLERK-C Jose Woodwardson OVER SHORT AND DAMAGE CLERK Work Phone: [facility] Work Phone: Start: 02-25-2023 End: 02-25-2023 Patient encounter procedure OVER SHORT AND DAMAGE CLERK-C Jose Woodwardson OVER SHORT AND DAMAGE CLERK Work Phone: [facility] Work Phone: Start: 02-18-2023 End: 02-18-2023 Patient encounter procedure OVER SHORT AND DAMAGE CLERK-C Jose Woodwardson OVER SHORT AND DAMAGE CLERK [facility] Start: 02-16-2023 End: 02-16-2023 Patient encounter procedure OVER SHORT AND DAMAGE CLERK-C Jose Woodwardson OVER SHORT AND DAMAGE CLERK Work Phone: [facility] Work Phone: Start: 02-12-2023 End: 02-12-2023 Patient encounter procedure OVER SHORT AND DAMAGE CLERK-C Jose Woodwardson OVER SHORT AND DAMAGE CLERK Work Phone: [facility] Work Phone: Start: 02-11-2023 End: 02-11-2023 Patient encounter procedure OVER SHORT AND DAMAGE CLERK-C Josetom WoodwardLoving OVER SHORT AND DAMAGE CLERK Work Phone: [facility] Work Phone: Start: 2023 Telephone encounter Corey Arvizu MD Work Phone: [facility] Start: 2023 Non-patient / Non-visit OVER SHORT AND DAMAGE CLERK-C Chloe ortom Loving OVER SHORT AND DAMAGE CLERK Work Phone: [facility] Start: 02-05-2023 Non-patient / Non-visit OVER SHORT AND DAMAGE CLERK-C D ora Loving OVER SHORT AND DAMAGE CLERK Work Phone: [facility] Start: 02-04-2023 Non-patient / Non-visit OVER SHORT AND DAMAGE CLERK-C D ora Loving OVER SHORT AND DAMAGE CLERK Work Phone: [facility] Start: 01-26-2023 Non-patient / Non-visit OVER SHORT AND DAMAGE CLERK-C D ora Loving OVER SHORT AND DAMAGE CLERK Work Phone: [facility] Start: 01-26-2023 End: 01-26-2023 Patient encounter procedure OVER SHORT AND DAMAGE CLERK-C Jose Loving OVER SHORT AND DAMAGE CLERK Work Phone: [facility] Work Phone: Start: 01-19-2023 End: 01-19-2023 Patient encounter procedure OVER SHORT AND DAMAGE CLERK-C Jose Loving OVER SHORT AND DAMAGE CLERK Work Phone: [facility] Work Phone: Start: 01-13-2023 End: 01-13-2023 Patient encounter procedure OVER SHORT AND DAMAGE CLERK-C Jose Loving OVER SHORT AND DAMAGE CLERK Work Phone: [facility] Work Phone: Start: 01-08-2023 End: 01-08-2023 Patient encounter procedure OVER SHORT AND DAMAGE CLERK-C Jose Loving OVER SHORT AND DAMAGE CLERK Work Phone: [facility] Work Phone: Start: 12-31-2022 Manual pelvic examination OVER SHORT AND DAMAGE CLERK-C Jose Loving OVER SHORT AND DAMAGE CLERK Work Phone: [facility] Start: 12-31-2022 Physical examination OVER SHORT AND DAMAGE CLERK-C Jose Loving OVER SHORT AND DAMAGE CLERK Work Phone: [facility] Start: 12-25-2022 Non-patient / Non-visit OVER SHORT AND DAMAGE CLERK-C D ora Loving OVER SHORT AND DAMAGE CLERK Work Phone: [facility] Start: 12-25-2022 End: 12-25-2022 Admission to same day surgery center OVER SHORT AND DAMAGE CLERK-Ronaldo Loving OVER SHORT AND DAMAGE CLERK [facility] Start: 12-11-2022 End: 12-11-2022 Patient encounter procedure OVER SHORT AND DAMAGE CLERK-Ronaldo Loving OVER SHORT AND DAMAGE CLERK Work Phone: [facility] Work Phone: Start: 12-05-2022 Non-patient / Non-visit OVER SHORT AND DAMAGE CLERK-C Chloe Loving OVER SHORT AND DAMAGE CLERK Work Phone: [facility] Start: 12-05-2022 End: 12-05-2022 ambulatory OVER SHORT AND DAMAGE CLERK-C Jose Loving OVER SHORT AND DAMAGE CLERK Work Phone: [facility] Work Phone: Start: 12-05-2022 End: 12-05-2022 Patient encounter procedure OVER SHORT AND DAMAGE CLERK-Ronaldo Loving OVER SHORT AND DAMAGE CLERK Work Phone: [facility] Work Phone: Start: 12-05-2022 Registered Recurring OVER SHORT AND DAMAGE CLERK-Ronaldo Loving OVER SHORT AND DAMAGE CLERK Work Phone: [facility] Start: 11-24-2022 End: 11-24-2022 Patient encounter procedure OVER SHORT AND DAMAGE CLERK-Ronaldo Loving OVER SHORT AND DAMAGE CLERK Work Phone: [facility] Work Phone: Start: 11-17-2022 End: 11-17-2022 Patient encounter procedure OVER SHORT AND DAMAGE CLERK-C Jose Loving OVER SHORT AND DAMAGE CLERK Work Phone: [facility] Work Phone: Start: 10-27-2022 End: 10-27-2022 Patient encounter procedure OVER SHORT AND DAMAGE CLERK-Ronaldo Loving OVER SHORT AND DAMAGE CLERK Work Phone: [facility] Work Phone: Start: 10-12-2022 End: 10-12-2022 Emergency department patient visit OVER SHORT AND DAMAGE CLERK-Ronaldo Loving OVER SHORT AND DAMAGE CLERK Work Phone: [facility]-Emergency Department Work Phone: Start: 10-07-2022 Registered Recurring OVER SHORT AND DAMAGE CLERK-Ronaldo Loving OVER SHORT AND DAMAGE CLERK Work Phone: [facility] Start: 10-06-2022 End: 10-06-2022 Patient encounter procedure OVER SHORT AND DAMAGE CLERK-C Jose Loving OVER SHORT AND DAMAGE CLERK Work Phone: [facility] Work Phone: Start: 09-15-2022 End: 09-15-2022 Patient encounter procedure OVER SHORT AND DAMAGE CLERK-C Jose Loving OVER SHORT AND DAMAGE CLERK Work Phone: [facility] Work Phone: Start: 09-08-2022 End: 09-08-2022 Patient encounter procedure OVER SHORT AND DAMAGE CLERK-C Jose Loving OVER SHORT AND DAMAGE CLERK Work Phone: [facility] Work Phone: Start: 08-26-2022 End: 08-27-2022 ambulatory SERVANDO MARINELLI HEAD HOLDER-BEAN VINER Facility:A Start: 08-26-2022 End: 08-26-2022 Patient encounter procedure OVER SHORT AND DAMAGE CLERK-C Jose Loving OVER SHORT AND DAMAGE CLERK Work Phone: [facility] Work Phone: Start: 08-21-2022 End: 08-22-2022 ambulatory SERVANDO MARINELLI HEAD HOLDER-BEAN VINER Facility:B Start: 08-18-2022 End: 08-18-2022 ambulatory OVER SHORT AND DAMAGE CLERK-C Jose Loving OVER SHORT AND DAMAGE CLERK Work Phone: [facility] Work Phone: Start: 08-18-2022 End: 08-18-2022 Patient encounter procedure OVER SHORT AND DAMAGE CLERK-C Jose Loving OVER SHORT AND DAMAGE CLERK Work Phone: [facility]-Laboratory, Specimen Start: 08-14-2022 Registered Recurring OVER SHORT AND DAMAGE CLERK-Ronaldo Loving OVER SHORT AND DAMAGE CLERK Work Phone: [facility] Start: 08-14-2022 End: 08-14-2022 Patient encounter procedure OVER SHORT AND DAMAGE CLERK-Ronaldo Loving OVER SHORT AND DAMAGE CLERK Work Phone: [facility] Start: 08-13-2022 End: 08-14-2022 ambulatory OMA ALVARADO MD Facility:A Start: 08-11-2022 End: 08-11-2022 Patient encounter procedure OVER SHORT AND DAMAGE CLERK-Ronaldo Loving OVER SHORT AND DAMAGE CLERK Work Phone: [facility] Start: 08-05-2022 End: 08-05-2022 ambulatory OVER SHORT AND DAMAGE CLERK-Ronaldo Loving OVER SHORT AND DAMAGE CLERK Work Phone: [facility] Work Phone: Start: 08-05-2022 End: 08-05-2022 Patient encounter procedure OVER SHORT AND DAMAGE CLERK-Ronaldo Loving OVER SHORT AND DAMAGE CLERK Work Phone: [facility] Start: 08-05-2022 Registered Recurring OVER SHORT AND DAMAGE CLERK-Ronaldo Loving OVER SHORT AND DAMAGE CLERK Work Phone: [facility] Start: 08-04-2022 Registered Recurring OVER SHORT AND DAMAGE CLERK-Ronaldo Loving OVER SHORT AND DAMAGE CLERK Work Phone: [facility] Start: 08-04-2022 End: 08-04-2022 Patient encounter procedure OVER SHORT AND DAMAGE CLERK-Ronaldo Loving OVER SHORT AND DAMAGE CLERK Work Phone: [facility] Start: 07-31-2022 Non-patient / Non-visit OVER SHORT AND DAMAGE CLERK-Ronaldo Loving OVER SHORT AND DAMAGE CLERK Work Phone: [facility] Start: 07-31-2022 End: 07-31-2022 Admission to same day surgery center OVER SHORT AND DAMAGE CLERK-Ronaldo Loving OVER SHORT AND DAMAGE CLERK [facility] Start: 07-31-2022 End: 07-31-2022 ambulatory OVER SHORT AND DAMAGE CLERK-Ronaldo Loving OVER SHORT AND DAMAGE CLERK Work Phone: [facility] Work Phone: Start: 07-30-2022 Non-patient / Non-visit OVER SHORT AND DAMAGE CLERK-Ronaldo Loving OVER SHORT AND DAMAGE CLERK Work Phone: [facility] Start: 07-30-2022 End: 07-30-2022 ambulatory OVER SHORT AND DAMAGE CLERK-Ronaldo Loving OVER SHORT AND DAMAGE CLERK Work Phone: [facility] Work Phone: Start: 07-30-2022 End: 07-30-2022 Patient encounter procedure OVER SHORT AND DAMAGE CLERK-Ronaldo Loving OVER SHORT AND DAMAGE CLERK Work Phone: [facility]Cardiovascular Services Start: 07-24-2022 End: 07-24-2022 Patient encounter procedure OVER SHORT AND DAMAGE CLERK-Ronaldo Loving OVER SHORT AND DAMAGE CLERK Work Phone: [facility] Start: 07-22-2022 End: 07-22-2022 ambulatory JOSE LVOING [facility] Start: 07-21-2022 End: 07-21-2022 Patient encounter procedure OVER SHORT AND DAMAGE CLERK-Ronaldo Loving OVER SHORT AND DAMAGE CLERK Work Phone: [facility] Start: 07-15-2022 Registered Recurring OVER SHORT AND DAMAGE CLERK-Ronaldo Loving OVER SHORT AND DAMAGE CLERK Work Phone: [facility] Start: 07-15-2022 End: 07-15-2022 ambulatory OVER SHORT AND DAMAGE CLERK-Ronaldo Loving OVER SHORT AND DAMAGE CLERK Work Phone: [facility] Work Phone: Start: 07-15-2022 End: 07-15-2022 Patient encounter procedure OVER SHORT AND DAMAGE CLERK-Ronaldo Loving OVER SHORT AND DAMAGE CLERK Work Phone: [facility] Start: 07-15-2022 End: 07-15-2022 Patient encounter procedure OVER SHORT AND DAMAGE CLERK-Ronaldo Loving OVER SHORT AND DAMAGE CLERK Work Phone: [facility] Start: 07-08-2022 End: 07-09-2022 ambulatory ROSANNA BLACKWOOD [facility] Start: 07-01-2022 Non-patient / Non-visit OVER SHORT AND DAMAGE CLERK-C Chloe Loving OVER SHORT AND DAMAGE CLERK Work Phone: [facility] Start: 07-01-2022 End: 07-01-2022 ambulatory OVER SHORT AND DAMAGE CLERK-C Jose Loving OVER SHORT AND DAMAGE CLERK Work Phone: [facility] Work Phone: Start: 07-01-2022 End: 07-01-2022 Patient encounter procedure OVER SHORT AND DAMAGE CLERK-C Jose Loving OVER SHORT AND DAMAGE CLERK Work Phone: [facility]-Breast Imaging - Biopsy/Stero Start: 06-27-2022 End: 06-27-2022 Patient encounter procedure OVER SHORT AND DAMAGE CLERK-Ronaldo Loving OVER SHORT AND DAMAGE CLERK Work Phone: [facility] Start: 06-25-2022 End: 06-25-2022 Orders Only Reece Vaughan MD Work Phone: Mammography Comment on above: Breast disorder (Zaida danial Dx) Start: 05-08-2022 End: 05-08-2022 ambulatory [facility] Work Phone: Start: 05-08-2022 End: 05-08-2022 Patient encounter procedure [facility]-Laboratory, Specimen Start: 06-11-2021 End: 06-11-2021 Patient encounter procedure [facility], Specimen Start: 11-21-2020 End: 11-21-2020 Emergency department patient visit Ambika Jones MD Work Phone: [facility] ED Comment on above: Acute nonintractable headache, unspecified headache type (Primary Dx) Start: 04-28-2019 Encounter for gynecological examination (general) (routine) without abnormal findings [facility] Procedures Date Procedure Procedure Detail Performing Clinician Start: 12-29-2024 Estimated creatinine clearance Jose Loving OVER SHORT AND DAMAGE CLERK-C Work Phone: Start: 12-29-2024 Mean corpuscular hemoglobin concentration determination Jose Loving OVER SHORT AND DAMAGE CLERK-C Work Phone: Start: 12-29-2024 Neutrophil count Jose barry OVER SHORT AND DAMAGE CLERK-C Work Phone: Start: 12-29-2024 Nucleated red blood cell count procedure Jose Loving OVER SHORT AND DAMAGE CLERK-C Work Phone: Start: 12-29-2024 Platelet mean volume determination Jose Loving OVER SHORT AND DAMAGE CLERK-C Work Phone: Start: 10-03-2024 Assay of triglycerides Jose Loving OVER SHORT AND DAMAGE CLERK-C Work Phone: Start: 10-03-2024 Total cholesterol:HD L ratio measurement Jose Loving OVER SHORT AND DAMAGE CLERK-C Work Phone: Start: 10-03-2024 Triglycerides measurement Jose Loving OVER SHORT AND DAMAGE CLERK-C Work Phone: Start: 10-03-2024 Vitamin D, 25-hydrox y measurement Jose Loving OVER SHORT AND DAMAGE CLERK-C Work Phone: Comment on above: Vitamin D StatusDefi ciency: <20 ng/mL (50nmol/L)Insufficiency: 20-30 ng/mL (50-75 nmol/L)Sufficiency: 30-100 ng/mL (75-250 nmol/L)Toxicity: >100 ng/mL (>250 nmol/L) Start: 09-14-2024 Blood count smear mc rscp w/mnl difrntl wbc count Jose Loving OVER SHORT AND DAMAGE CLERK-C Work Phone: Start: 09-14-2024 Estimated creatinine clearance Jose Loving OVER SHORT AND DAMAGE CLERK-C Work Phone: Start: 09-14-2024 Mean corpuscular hemoglobin concentration determination Jose Loving OVER SHORT AND DAMAGE CLERK-C Work Phone: Start: 09-14-2024 Nucleated red blood cell count procedure Jose Loving OVER SHORT AND DAMAGE CLERK-C Work Phone: Start: 09-14-2024 Platelet mean volume determination Jose Loving OVER SHORT AND DAMAGE CLERK-C Work Phone: Start: 07-11-2024 Screening mammography D caitlin Loving OVER SHORT AND DAMAGE CLERK-C Work Phone: Start: 06-26-2024 CT angiography of ch est with contrast Jose Loving OVER SHORT AND DAMAGE CLERK-C Work Phone: Start: 06-26-2024 X-ray of chest, PA a nd lateral views Jose Loving OVER SHORT AND DAMAGE CLERK-C Work Phone: Start: 06-26-2024 Blood count smear mc rscp w/mnl difrntl wbc count Jose Loving OVER SHORT AND DAMAGE CLERK-C Work Phone: Start: 06-26-2024 D-dimer assay, quantitative Jose Loving OVER SHORT AND DAMAGE CLERK-C Work Phone: Comment on above: NORMAL D-Dimer level (<0.50) indicates no DVT or PE. Start: 06-26-2024 Estimated creatinine clearance Jose Loving OVER SHORT AND DAMAGE CLERK-C Work Phone: Start: 06-26-2024 Mean corpuscular hemoglobin concentration determination Jose Loving OVER SHORT AND DAMAGE CLERK-C Work Phone: Start: 06-26-2024 Nucleated red blood cell count procedure Jose Loving OVER SHORT AND DAMAGE CLERK-C Work Phone: Start: 06-26-2024 Platelet mean volume determination Jose Loving OVER SHORT AND DAMAGE CLERK-C Work Phone: Start: 12-03-2023 Ferritin measurement Do ra Loving OVER SHORT AND DAMAGE CLERK-C Work Phone: Start: 12-03-2023 Measurement of renal function Jose Loving OVER SHORT AND DAMAGE CLERK-C Work Phone: Comment on above: GFR Calc Start: 12-03-2023 Total iron binding capacity measurement Jose Loving OVER SHORT AND DAMAGE CLERK-C Work Phone: Start: 07-30-2023 MRI of pelvis with contrast OVER SHORT AND DAMAGE CLERK-C Jose Loving OVER SHORT AND DAMAGE CLERK Work Phone: Start: 07-09-2023 Screening mammography N P-C Jose Loving OVER SHORT AND DAMAGE CLERK Work Phone: Start: 07-09-2023 Pelvic echography OVER SHORT AND DAMAGE CLERK-C Jose Loving OVER SHORT AND DAMAGE CLERK Work Phone: Start: 07-09-2023 Transvaginal echography OVER SHORT AND DAMAGE CLERK-C Jose Loving OVER SHORT AND DAMAGE CLERK Work Phone: Start: 04-16-2023 SARS-CoV-2, Influenz a & RSV (PCR) Dr. Mary Jo Deshpande Work Phone: Start: 04-16-[address] Mary Jo Deshpande Work Phone: Start: 04-16-2023 Jose kurtz OVER SHORT AND DAMAGE CLERK-C Work Phone: Start: 03-26-2023 Dual energy X-ray absorptiometry Dr. Mary Jo Deshpande Work Phone: Start: 01-13-2023 Trichomonas screenin g test Jose Loving OVER SHORT AND DAMAGE CLERK-C Work Phone: Start: 12-25-2022 Specimen mammography OVER SHORT AND DAMAGE CLERK -C Jose Loving OVER SHORT AND DAMAGE CLERK Work Phone: Start: 12-25-2022 Breast procedure OVER SHORT AND DAMAGE CLERK-C Chloe Loving OVER SHORT AND DAMAGE CLERK Work Phone: Start: 12-25-2022 Radionuclide sentine l lymph node study OVER SHORT AND DAMAGE CLERK-C Jose Loving OVER SHORT AND DAMAGE CLERK Work Phone: Start: 12-05-2022 MRI of bilateral [place] asts with contrast OVER SHORT AND DAMAGE CLERK-C Jose Loving OVER SHORT AND DAMAGE CLERK Work Phone: Start: 11-24-2022 Clostridium difficil e detection OVER SHORT AND DAMAGE CLERK-C Jose Loving OVER SHORT AND DAMAGE CLERK Work Phone: Start: 09-08-2022 Radex ankle complete minimum 3 views Jose Loving OVER SHORT AND DAMAGE CLERK-C Work Phone: Start: 09-08-2022 Radiography of ankle OVER SHORT AND DAMAGE CLERK -C Jose Loving OVER SHORT AND DAMAGE CLERK Work Phone: Start: 08-18-2022 Investigation of transfusion reaction OVER SHORT AND DAMAGE CLERK-C Jose Loving OVER SHORT AND DAMAGE CLERK Work Phone: Start: 08-18-2022 Microbial culture, routine OVER SHORT AND DAMAGE CLERK-C Jose Loving OVER SHORT AND DAMAGE CLERK Work Phone: Start: 08-05-2022 CT of abdomen with contrast OVER SHORT AND DAMAGE CLERK-C Jose Loving OVER SHORT AND DAMAGE CLERK Work Phone: Start: 07-31-2022 Radiographic procedu re of chest OVER SHORT AND DAMAGE CLERK-Ronaldo Loving OVER SHORT AND DAMAGE CLERK Work Phone: Start: 07-31-2022 Implantation to cardiovascular system OVER SHORT AND DAMAGE CLERK-Ronaldo Loving OVER SHORT AND DAMAGE CLERK Work Phone: Start: 07-31-2022 Fluoroscopic guidance N P-C Jose Loving OVER SHORT AND DAMAGE CLERK Work Phone: Start: 07-15-2022 MRI of bilateral [place] asts with contrast OVER SHORT AND DAMAGE CLERK-Ronaldo Loving OVER SHORT AND DAMAGE CLERK Work Phone: Start: 07-01-2022 Ultrasonography guid ed biopsy of breast OVER SHORT AND DAMAGE CLERK-Ronaldo Loving OVER SHORT AND DAMAGE CLERK Work Phone: Start: 07-01-2022 US Breast Bx EA Add Lesion OVER SHORT AND DAMAGE CLERK-Ronaldo Loving OVER SHORT AND DAMAGE CLERK Work Phone: Start: 06-25-2022 Mammography Reece christian MD Work Phone: Start: 11-21-2020 Ct head/brain w/o contrast material Ambika Jones MD Work Phone: H/O: hysterectomy Status post hysterectomy Jose Loving OVER SHORT AND DAMAGE CLERK-C Work Phone: H/O: surgery Status post hysterectomy with oophorectomy Jose Loving OVER SHORT AND DAMAGE CLERK-C Work Phone: Comment on above: 02/09/24 JV - roboti c hyst bso H/O: surgery Status post hysterectomy with oophorectomy Dr. Reba Lopez DO Investigation of transfusion reaction OVER SHORT AND DAMAGE CLERK-Ronaldo Loving OVER SHORT AND DAMAGE CLERK Work Phone: Microbial culture, routine OVER SHORT AND DAMAGE CLERK-Ronaldo Loving OVER SHORT AND DAMAGE CLERK Work Phone: Plan of Treatment Date Care Activity Detail Author Start: 02-07-2028 Zoster Vaccines (1 of 2) [facility] Start: 07-12-2025 MG Breast - bilatera l Screening [facility] Start: 02-22-2025 ambulatory Ambulatory Facility:[facility] Start: 12-29-2024 [facility] Start: 09-15-2024 Patient referral [facility] Work Phone: Start: 06-26-2024 [facility] Start: 06-26-2024 [facility] Start: 03-18-2024 Patient referral [facility] Work Phone: Start: 07-30-2023 Patient referral [facility] Work Phone: Start: 07-30-2023 Venous catheter care management [facility] Start: 06-26-2023 Mammography MAMMOGRAM [facility] Start: 05-18-2023 Liquid based cervica l cytology screening [facility] Start: 04-16-2023 SARS-CoV-2, Influenz a & RSV (PCR) SARS-CoV-2, Influenza & RSV (PCR) [facility] Start: 04-16-2023 End: 04-16-2023 [facility] Start: 03-26-2023 Dual energy X-ray absorptiometry Dexa Bone Density Study [facility] Start: 03-26-2023 DXA Bone [Mass/Area] Bone density [facility] Start: 01-13-2023 Patient referral [facility] Work Phone: Start: 12-25-2022 Venous catheter care management [facility] Start: 12-25-2022 Irrigation of vascul ar catheter [facility] Start: 12-25-2022 Patient discharge [facility] Start: 12-25-2022 Anesthesia radical/modified radical breast ANESTH SURGERY OF BREAST [facility] Start: 12-25-2022 Mastectomy partial PARTIAL MASTECTOM Y [facility] Start: 11-28-2022 Influenza vaccination Influenza Vacc ine (#1) [facility] Start: 08-25-2022 [facility] Start: 08-05-2022 Venous catheter care management [facility] Start: 08-04-2022 Venous catheter care management [facility] Start: 08-04-2022 [facility] Start: 07-31-2022 Anesthesia access ce ntral venous circulation ANESTH VASCULAR ACCESS [facility] Start: 07-31-2022 Insj tunneled ctr va d w/subq port age 3 yr/> INSERT TUNNELED CV CATH [facility] Start: 07-31-[facility]22 [facility] Start: 07-15-2022 Patient referral [facility] Work Phone: Start: 07-04-2022 Patient referral [facility] Work Phone: Start: 07-01-2022 Bx breast w/device 1 st lesion ultrasound guid BX BREAST 1ST LESION US IMAG [facility] Start: 03-30-2022 DEPRESSION ASSESSMENT DEPRESSION ASS ESSMENT [facility] Start: 11-28-2021 Influenza vaccination INFLUENZA (#1) [facility] Start: 04-04-2021 COVID-19 VACCINE (3 - Booster for Moderna series) COVID-19 VACCINE (3 - Booster for Moderna series) [facility] Start: 04-04-2021 COVID-19 Vaccine (3 - Moderna series) COVID-19 Vaccine (3 - Moderna series) [facility] Start: 11-28-2020 Influenza vaccination Flu vaccine (# 1) [facility] Work Phone: Start: 2018 Screening for malign ant neoplasm of breast Mammogram [facility] Start: 02-07-2008 HPV TESTING HPV TESTING [facility] Start: 02-07-2008 Screening for malign ant neoplasm of cervix [facility] Start: 1999 PAP TESTING PAP TESTING [facility] Start: 1999 Screening for malign ant neoplasm of cervix Pap Smear [facility] Start: 1997 DTaP/Tdap/Td Vaccine s (1 - Tdap) DTaP/Tdap/Td Vaccines (1 - Tdap) [facility] Start: 1997 Hepatitis A Vaccines (1 of 2 - Risk 2-dose series) Hepatitis A Vaccines (1 of 2 - Risk 2-dose series) [facility] Start: 1997 Urine microalbumin profile DTA P,TDAP,TD (1 - Tdap) [facility] Start: 02-07-1996 HEPATITIS C SCREENING HEPATITIS [facility] Start: 02-07-1996 Hepatitis C screening Hepatitis C [facility] Start: 02-07-1996 HIV SCREENING HIV SCREENING [facility] Start: 1990 COVID-19 Vaccine (1) COVID-19 Vaccin e (1) [facility] Work Phone: Start: 1990 Depression Screening Depression Scre ening [facility] Start: 02-07-1988 Diabetic foot examination Diabetes: Foot Exam [facility] Start: 02-07-1988 Glaucoma screening Diabetes: R etinopathy Screening [facility] Start: 02-07-1988 Preventive dental service Diabetes: Dental Exam [facility] Start: 02-07-1984 Pneumococcal Vaccine : Pediatrics (0 to 5 Years) and At-Risk Patients (6 to 64 Years) (1 - PCV) Pneumococcal Vaccine: Pediatrics (0 to 5 Years) and At-Risk Patients (6 to 64 Years) (1 - PCV) [facility] Start: 1979 MMR Vaccines (1 of 1 - Standard series) MMR Vaccines (1 of 1 - Standard series) [facility] Start: 1978 Hemoglobin A1c measurement Kenna betes: Hemoglobin A1C [facility] Start: 1978 HEPATITIS B (1 of 3 - 3-dose series) HEPATITIS B (1 of 3 - 3-dose series) [facility] Start: 1978 Hepatitis B Vaccines (1 of 3 - 3-dose series) Hepatitis B Vaccines (1 of 3 - 3-dose series) [facility] Start: 1978 HIV screening HIV Screening [facility] Start: 1978 Lipid panel Lipid Panel [facility] Start: 1978 Screening for malign ant neoplasm of colon [facility] Alanine aminotransfe rase [Enzymatic activity/volume] in Serum or Plasma [facility] Alanine aminotransfe rase [Enzymatic activity/volume] in Serum or Plasma [facility] Albumin [Mass/volume ] in Serum or Plasma [facility] Albumin [Mass/volume ] in Serum or Plasma [facility] Alkaline phosphatase [Enzymatic activity/volume] in Serum or Plasma [facility] Alkaline phosphatase [Enzymatic activity/volume] in Serum or Plasma [facility] Anion gap measurement [facility] Anion gap measurement [facility] Aspartate aminotrans ferase [Enzymatic activity/volume] in Serum or Plasma [facility] Aspartate aminotrans ferase [Enzymatic activity/volume] in Serum or Plasma [facility] Bilirubin, total measurement [facility] Bilirubin, total measurement [facility] BUN/Creatinine ratio [facility] BUN/Creatinine ratio [facility] Calcium [Mass/volume ] in Serum or Plasma [facility] Calcium [Mass/volume ] in Serum or Plasma [facility] Carbon dioxide, tota l [Moles/volume] in Serum or Plasma [facility] Carbon dioxide, tota l [Moles/volume] in Serum or Plasma [facility] CBC W Auto Different ial panel - Blood [facility] CBC W Auto Different ial panel - Blood [facility] CBC W Auto Different ial panel - Blood [facility] CBC W Auto Different ial panel - Blood [facility] CBC W Auto Different ial panel - Blood [facility] CBC W Auto Different ial panel - Blood [facility] Chloride [Moles/volu me] in Serum or Plasma [facility] Chloride [Moles/volu me] in Serum or Plasma [facility] Clostridioides diffi cile [Presence] in Stool [facility] Comprehensive metabo lic 1999 panel - Serum or Plasma [facility] Comprehensive metabo lic 1999 panel - Serum or Plasma [facility] Comprehensive metabo lic 1999 panel - Serum or Plasma [facility] Creatinine [Moles/vo lume] in Serum or Plasma [facility] Creatinine [Moles/vo lume] in Serum or Plasma [facility] CT Abdomen WO and W contrast IV [facility] Ferritin [Mass/volum e] in Serum or Plasma [facility] Folate [Mass/volume] in Serum or Plasma [facility] Glucose [Mass/volume ] in Serum or Plasma [facility] Glucose [Mass/volume ] in Serum or Plasma [facility] Hematocrit [Volume Fraction] of Blood [facility] Hematocrit [Volume Fraction] of Blood [facility] Hemoglobin [Mass/vol ume] in Blood [facility] Hemoglobin [Mass/vol ume] in Blood [facility] Hepatic function panel [facility] Iron and Iron bindin g capacity panel - Serum or Plasma [facility] Leukocytes [#/volume ] in Blood [facility] Leukocytes [#/volume ] in Blood [facility] Lipid 1995 panel - S roxi or Plasma [facility] Lipid 1995 panel - S roxi or Plasma [facility] Magnesium [Mass/volu me] in Serum or Plasma [facility] Magnesium [Mass/volu me] in Serum or Plasma [facility] Magnesium [Mass/volu me] in Serum or Plasma [facility] Magnesium [Mass/volu me] in Serum or Plasma [facility] Mean corpuscular hemoglobin concentration determination [facility] Mean corpuscular hemoglobin concentration determination [facility] Mean corpuscular hemoglobin determination [facility] Mean corpuscular hemoglobin determination [facility] Measurement of renal function [facility] Measurement of renal function [facility] MG Breast - bilatera l Diagnostic [facility] MG Breast - bilatera l Screening [facility] MG Breast - bilatera l Screening [facility] MR Breast - bilatera l WO and W contrast IV [facility] Neutrophil count [facility] Neutrophil count [facility] Neutrophil percent differential count [facility] Neutrophil percent differential count [facility] Path report.final Dx Spec Wo [facility] Patient Education [facility] Work Phone: Patient referral [facility] Work Phone: Platelets [#/volume] in Blood [facility] Platelets [#/volume] in Blood [facility] Potassium [Moles/vol ume] in Serum or Plasma [facility] Potassium [Moles/vol ume] in Serum or Plasma [facility] Radiation oncology A ND/OR radiotherapy [facility] Red blood cell count [facility] Red blood cell count [facility] Red cell distributio n width determination [facility] Red cell distributio n width determination [facility] Serum inorganic phos phate measurement [facility] Sodium [Moles/volume ] in Serum or Plasma [facility] Sodium [Moles/volume ] in Serum or Plasma [facility] Total protein measurement [facility] Total protein measurement [facility] Urea nitrogen [Mass/volume] in Serum or Plasma [facility] Urea nitrogen [Mass/volume] in Serum or Plasma [facility] End: 07-25-2023 US BIOPSY BREAST RIGHT US BIOPSY BREAST RIGHT Radiology Routine Breast disorder 1 Occurrences starting 06/25/2022 until 07/25/2023 [facility] Work Phone: Comment on above: 1 Occurrences starti ng 06/25/2022 until 07/25/[address] [facility] US Heart limited [facility] US Pelvis [facility] Pelvis transvaginal [facility] Vitamin B12 measurement [facility] Vitamin D, 25-hydrox y measurement [facility] Payers Date Payer Category Payer Private Health Insurance [id number] 2022 Private Health Insurance [id number] 2022 Self-pay [id number] 2022 Unknown [id number] 2022 Unknown [id number] 2022 Unknown MMO MMO [employer]PER[employer] PPO [id number] 2022-Present [phone] [address] [place] [address] PPO [id number] 1978 Unknown [id number] 79 1978 Unknown [id number] 79 1978 Unknown [id number] 79 1978 Unknown [id number] 27 1978 Unknown [id number] 2.16.840.1.362404.3.579.2.6 27 1978 Unknown [id number] 2.16.840.1.780237.3.579.2.6 27 Private Health Insurance [id number] Private Health Insurance [facility] [id number] [facility] [id number] Private Health Insurance [id number] Unknown [id number] Unknown [facility] [id number] Unknown [facility] PACKAGE PLAN [id number] Unknown [id number] 2.16.840.1.345207.3.579.2.4 62 Unknown [id number] 2.16.840.1.325097.3.579.2.4 62 Unknown [id number] 2.16.840.1.462546.3.579.2.4 62 Unknown [id number] 2.16.840.1.775222.3.579.2.4 62 Unknown [id number] 2.16.840.1.939085.3.579.2.4 62 Unknown [id number] 2.16.840.1.072837.3.579.2.4 62 Unknown [id number] 2.16.840.1.964931.3.579.2.4 62 Unknown [id number] 2.16.840.1.509124.3.579.2.4 62 Unknown [id number] 2.16.840.1.632438.3.579.2.4 62 Unknown [id number] 2.16.840.1.599322.3.579.2.4 62 Unknown [id number] 2.16.840.1.731499.3.579.2.4 62 Unknown [id number] 2.16.840.1.805088.3.579.2.4 62 Unknown [id number] 2.16.840.1.803340.3.579.2.4 62 Unknown [id number] 2.16.840.1.287964.3.579.2.4 62 Unknown [id number] 2.16.840.1.916544.3.579.2.4 62 Unknown [id number] 2.16.840.1.837877.3.579.2.4 62 Unknown [id number] 2.16.840.1.870721.3.579.2.4 62 Unknown [id number] 2.16.840.1.000964.3.579.2.4 62 Social History Date Type Detail Facility Start: 11-21-2020 Tobacco smoking status [facility] Current every day smoker [facility] History of tobacco use [facility] Start: 11-21-2020 Tobacco use and exposure Never used [facility] Start: 11-21-2020 Alcohol intake Ex-drinker (finding) [facility] Work Phone: Start: 1980 Sex Assigned At Not on file [facility] Work Phone: Exposure to SARS-CoV-2 (event) Not sure [facility] Start: 07-17-2020 End: 05-18-2023 Tobacco smoking status [facility]IS Unknown if ever smoked [facility] Start: 1980 Sex Assigned At Female [facility] Gender identity Not on file [facility] Start: 06-26-2024 Tobacco smoking status NHIS Ex-smoker (finding) [facility] Start: 06-26-2024 End: 07-14-2024 Sex Female (finding) [facility] NEGATED: Highlighted row [facility] Medical Equipment Procedure Code Equipment Code Equipment Origin al Text Equipment Identifier Dates Robot-assisted total abdominal hysterectomy with bilateral salpingo-oophorectomy ([facility] [phone] FDA Start: 02-09-2024 Lumpectomy, breast, bilateral, after needle localization, with bilateral sentinel and ()[phone] [phone] FDA Start: 12-25-2022 Lumpectomy, breast, bilateral, after needle localization, with bilateral sentinel and ()[phone] [phone] FDA Start: 12-25-2022 Insertion, vascular access port ([id number]) ()[id number] [id number] FDA Start: 07-31-2022 Blood Sugar Diagnostic (Onetouch Ultra Test) strip Start: 06-12-2021 Pen Needle, Diabetic (Bd Ultra-Fine Orig Pen Needle) 29 gauge x 1/2 needle Start: 06-12-2021 Blood Sugar Diagnostic (Onetouch Ultra Test) strip Start: 02-28-2021 End: 02-28-2021 Blood Sugar Diagnostic (Onetouch Ultra Test) strip Start: 02-28-2021 End: 06-11-2021 Blood Sugar Diagnostic (Onetouch Ultra Test) strip Start: 03-05-2021 End: 06-11-2021 Blood Sugar Diagnostic (Onetouch Ultra Test) strip Start: 06-11-2021 End: 06-12-2021 Pen Needle, Diabetic (Bd Ultra-Fine Orig Pen Needle) 29 gauge x 1/2 needle Start: 09-08-2018 End: 09-22-2019 Pen Needle, Diabetic (Bd Ultra-Fine Orig Pen Needle) 29 gauge x 1/2 needle Start: 09-22-2019 End: 06-11-2021 Pen Needle, Diabetic (Bd Ultra-Fine Orig Pen Needle) 29 gauge x 1/2 needle Start: 06-11-2021 End: 06-12-2021 Pen Needle, Diabetic (Bd Ultra-Fine Orig Pen Needle) 29 gauge x 1/2 needle Start: 03-03-2018 End: 09-08-2018 Blood Sugar Diagnostic (Onetouch Ultra Test) strip Start: 06-12-2021 Pen Needle, Diabetic (Bd Ultra-Fine Orig Pen Needle) 29 gauge x 1/2 needle Start: 06-12-2021 Blood Sugar Diagnostic (Onetouch Ultra Test) strip Start: 02-28-2021 End: 02-28-2021 Blood Sugar Diagnostic (Onetouch Ultra Test) strip Start: 02-28-2021 End: 06-11-2021 Blood Sugar Diagnostic (Onetouch Ultra Test) strip Start: 03-05-2021 End: 06-11-2021 Blood Sugar Diagnostic (Onetouch Ultra Test) strip Start: 06-11-2021 End: 06-12-2021 Pen Needle, Diabetic (Bd Ultra-Fine Orig Pen Needle) 29 gauge x 1/2 needle Start: 09-08-2018 End: 09-22-2019 Pen Needle, Diabetic (Bd Ultra-Fine Orig Pen Needle) 29 gauge x 1/2 needle Start: 09-22-2019 End: 06-11-2021 Pen Needle, Diabetic (Bd Ultra-Fine Orig Pen Needle) 29 gauge x 1/2 needle Start: 06-11-2021 End: 06-12-2021 Pen Needle, Diabetic (Bd Ultra-Fine Orig Pen Needle) 29 gauge x 1/2 needle Start: 03-03-2018 End: 09-08-2018 Blood Sugar Diagnostic (Onetouch Ultra Test) strip Start: 06-12-2021 Pen Needle, Diabetic (Bd Ultra-Fine Orig Pen Needle) 29 gauge x 1/2 needle Start: 06-12-2021 Blood Sugar Diagnostic (Onetouch Ultra Test) strip Start: 02-28-2021 End: 02-28-2021 Blood Sugar Diagnostic (Onetouch Ultra Test) strip Start: 02-28-2021 End: 06-11-2021 Blood Sugar Diagnostic (Onetouch Ultra Test) strip Start: 03-05-2021 End: 06-11-2021 Blood Sugar Diagnostic (Onetouch Ultra Test) strip Start: 06-11-2021 End: 06-12-2021 Pen Needle, Diabetic (Bd Ultra-Fine Orig Pen Needle) 29 gauge x 1/2 needle Start: 09-08-2018 End: 09-22-2019 Pen Needle, Diabetic (Bd Ultra-Fine Orig Pen Needle) 29 gauge x 1/2 needle Start: 09-22-2019 End: 06-11-2021 Pen Needle, Diabetic (Bd Ultra-Fine Orig Pen Needle) 29 gauge x 1/2 needle Start: 06-11-2021 End: 06-12-2021 Pen Needle, Diabetic (Bd Ultra-Fine Orig Pen Needle) 29 gauge x 1/2 needle Start: 03-03-2018 End: 09-08-2018 Blood Sugar Diagnostic (Onetouch Ultra Test) strip Start: 06-12-2021 Pen Needle, Diabetic (Bd Ultra-Fine Orig Pen Needle) 29 gauge x 1/2 needle Start: 06-12-2021 Blood Sugar Diagnostic (Onetouch Ultra Test) strip Start: 02-28-2021 End: 02-28-2021 Blood Sugar Diagnostic (Onetouch Ultra Test) strip Start: 02-28-2021 End: 06-11-2021 Blood Sugar Diagnostic (Onetouch Ultra Test) strip Start: 03-05-2021 End: 06-11-2021 Blood Sugar Diagnostic (Onetouch Ultra Test) strip Start: 06-11-2021 End: 06-12-2021 Pen Needle, Diabetic (Bd Ultra-Fine Orig Pen Needle) 29 gauge x 1/2 needle Start: 09-08-2018 End: 09-22-2019 Pen Needle, Diabetic (Bd Ultra-Fine Orig Pen Needle) 29 gauge x 1/2 needle Start: 09-22-2019 End: 06-11-2021 Pen Needle, Diabetic (Bd Ultra-Fine Orig Pen Needle) 29 gauge x 1/2 needle Start: 06-11-2021 End: 06-12-2021 Pen Needle, Diabetic (Bd Ultra-Fine Orig Pen Needle) 29 gauge x 1/2 needle Start: 03-03-2018 End: 09-08-2018 Blood Sugar Diagnostic (Onetouch Ultra Test) strip Start: 06-12-2021 Pen Needle, Diabetic (Bd Ultra-Fine Orig Pen Needle) 29 gauge x 1/2 needle Start: 06-12-2021 Blood Sugar Diagnostic (Onetouch Ultra Test) strip Start: 02-28-2021 End: 02-28-2021 Blood Sugar Diagnostic (Onetouch Ultra Test) strip Start: 02-28-2021 End: 06-11-2021 Blood Sugar Diagnostic (Onetouch Ultra Test) strip Start: 03-05-2021 End: 06-11-2021 Blood Sugar Diagnostic (Onetouch Ultra Test) strip Start: 06-11-2021 End: 03-16-2022 Pen Needle, Diabetic (Bd Ultra-Fine Orig Pen Needle) 29 gauge x 1/2 needle Start: 09-08-2018 End: 09-22-2019 Pen Needle, Diabetic (Bd Ultra-Fine Orig Pen Needle) 29 gauge x 1/2 needle Start: 09-22-2019 End: 06-11-2021 Pen Needle, Diabetic (Bd Ultra-Fine Orig Pen Needle) 29 gauge x 1/2 needle Start: 06-11-2021 End: 06-12-2021 Pen Needle, Diabetic (Bd Ultra-Fine Orig Pen Needle) 29 gauge x 1/2 needle Start: 03-03-2018 End: 09-08-2018 Blood Sugar Diagnostic (Onetouch Ultra Test) strip Start: 06-12-2021 Pen Needle, Diabetic (Bd Ultra-Fine Orig Pen Needle) 29 gauge x 1/2 needle Start: 06-12-2021 Blood Sugar Diagnostic (Onetouch Ultra Test) strip Start: 02-28-2021 End: 02-28-2021 Blood Sugar Diagnostic (Onetouch Ultra Test) strip Start: 02-28-2021 End: 06-11-2021 Blood Sugar Diagnostic (Onetouch Ultra Test) strip Start: 03-05-2021 End: 06-11-2021 Blood Sugar Diagnostic (Onetouch Ultra Test) strip Start: 06-11-2021 End: 06-12-2021 Pen Needle, Diabetic (Bd Ultra-Fine Orig Pen Needle) 29 gauge x 1/2 needle Start: 09-08-2018 End: 09-22-2019 Pen Needle, Diabetic (Bd Ultra-Fine Orig Pen Needle) 29 gauge x 1/2 needle Start: 09-22-2019 End: 06-11-2021 Pen Needle, Diabetic (Bd Ultra-Fine Orig Pen Needle) 29 gauge x 1/2 needle Start: 06-11-2021 End: 06-12-2021 Pen Needle, Diabetic (Bd Ultra-Fine Orig Pen Needle) 29 gauge x 1/2 needle Start: 03-03-2018 End: 09-08-2018 Blood Sugar Diagnostic (Onetouch Ultra Test) strip Start: 06-12-2021 Pen Needle, Diabetic (Bd Ultra-Fine Orig Pen Needle) 29 gauge x 1/2 needle Start: 06-12-2021 Blood Sugar Diagnostic (Onetouch Ultra Test) strip Start: 02-28-2021 End: 02-28-2021 Blood Sugar Diagnostic (Onetouch Ultra Test) strip Start: 02-28-2021 End: 06-11-2021 Blood Sugar Diagnostic (Onetouch Ultra Test) strip Start: 03-05-2021 End: 06-11-2021 Blood Sugar Diagnostic (Onetouch Ultra Test) strip Start: 06-11-2021 End: 06-12-2021 Pen Needle, Diabetic (Bd Ultra-Fine Orig Pen Needle) 29 gauge x 1/2 needle Start: 09-08-2018 End: 09-22-2019 Pen Needle, Diabetic (Bd Ultra-Fine Orig Pen Needle) 29 gauge x 1/2 needle Start: 09-22-2019 End: 06-11-2021 Pen Needle, Diabetic (Bd Ultra-Fine Orig Pen Needle) 29 gauge x 1/2 needle Start: 06-11-2021 End: 06-12-2021 Pen Needle, Diabetic (Bd Ultra-Fine Orig Pen Needle) 29 gauge x 1/2 needle Start: 03-03-2018 End: 09-08-2018 Blood Sugar Diagnostic (Onetouch Ultra Test) strip Start: 06-12-2021 Pen Needle, Diabetic (Bd Ultra-Fine Orig Pen Needle) 29 gauge x 1/2 needle Start: 06-12-2021 Blood Sugar Diagnostic (Onetouch Ultra Test) strip Start: 02-28-2021 End: 02-28-2021 Blood Sugar Diagnostic (Onetouch Ultra Test) strip Start: 02-28-2021 End: 06-11-2021 Blood Sugar Diagnostic (Onetouch Ultra Test) strip Start: 03-05-2021 End: 06-11-2021 Blood Sugar Diagnostic (Onetouch Ultra Test) strip Start: 06-11-2021 End: 06-12-2021 Pen Needle, Diabetic (Bd Ultra-Fine Orig Pen Needle) 29 gauge x 1/2 needle Start: 09-08-2018 End: 09-22-2019 Pen Needle, Diabetic (Bd Ultra-Fine Orig Pen Needle) 29 gauge x 1/2 needle Start: 09-22-2019 End: 06-11-2021 Pen Needle, Diabetic (Bd Ultra-Fine Orig Pen Needle) 29 gauge x 1/2 needle Start: 06-11-2021 End: 06-12-2021 Pen Needle, Diabetic (Bd Ultra-Fine Orig Pen Needle) 29 gauge x 1/2 needle Start: 03-03-2018 End: 09-08-2018 Blood Sugar Diagnostic (Onetouch Ultra Test) strip Start: 06-12-2021 Pen Needle, Diabetic (Bd Ultra-Fine Orig Pen Needle) 29 gauge x 1/2 needle Start: 06-12-2021 Blood Sugar Diagnostic (Onetouch Ultra Test) strip Start: 02-28-2021 End: 02-28-2021 Blood Sugar Diagnostic (Onetouch Ultra Test) strip Start: 02-28-2021 End: 06-11-2021 Blood Sugar Diagnostic (Onetouch Ultra Test) strip Start: 03-05-2021 End: 06-11-2021 Blood Sugar Diagnostic (Onetouch Ultra Test) strip Start: 06-11-2021 End: 06-12-2021 Pen Needle, Diabetic (Bd Ultra-Fine Orig Pen Needle) 29 gauge x 1/2 needle Start: 09-08-2018 End: 09-22-2019 Pen Needle, Diabetic (Bd Ultra-Fine Orig Pen Needle) 29 gauge x 1/2 needle Start: 09-22-2019 End: 06-11-2021 Pen Needle, Diabetic (Bd Ultra-Fine Orig Pen Needle) 29 gauge x 1/2 needle Start: 06-11-2021 End: 06-12-2021 Pen Needle, Diabetic (Bd Ultra-Fine Orig Pen Needle) 29 gauge x 1/2 needle Start: 03-03-2018 End: 09-08-2018 Blood Sugar Diagnostic (Onetouch Ultra Test) strip Start: 06-12-2021 Pen Needle, Diabetic (Bd Ultra-Fine Orig Pen Needle) 29 gauge x 1/2 needle Start: 06-12-2021 Blood Sugar Diagnostic (Onetouch Ultra Test) strip Start: 02-28-2021 End: 02-28-2021 Blood Sugar Diagnostic (Onetouch Ultra Test) strip Start: 02-28-2021 End: 06-11-2021 Blood Sugar Diagnostic (Onetouch Ultra Test) strip Start: 03-05-2021 End: 06-11-2021 Blood Sugar Diagnostic (Onetouch Ultra Test) strip Start: 06-11-2021 End: 06-12-2021 Pen Needle, Diabetic (Bd Ultra-Fine Orig Pen Needle) 29 gauge x 1/2 needle Start: 09-08-2018 End: 09-22-2019 Pen Needle, Diabetic (Bd Ultra-Fine Orig Pen Needle) 29 gauge x 1/2 needle Start: 09-22-2019 End: 06-11-2021 Pen Needle, Diabetic (Bd Ultra-Fine Orig Pen Needle) 29 gauge x 1/2 needle Start: 06-11-2021 End: 06-12-2021 Pen Needle, Diabetic (Bd Ultra-Fine Orig Pen Needle) 29 gauge x 1/2 needle Start: 03-03-2018 End: 09-08-2018 Blood Sugar Diagnostic (Onetouch Ultra Test) strip Start: 01-20-2023 Pen Needle, Diabetic (Bd Ultra-Fine Orig Pen Needle) 29 gauge x 1/2 needle Start: 06-12-2021 Blood Sugar Diagnostic (Onetouch Ultra Test) strip Start: 02-28-2021 End: 02-28-2021 Blood Sugar Diagnostic (Onetouch Ultra Test) strip Start: 02-28-2021 End: 06-11-2021 Blood Sugar Diagnostic (Onetouch Ultra Test) strip Start: 03-05-2021 End: 06-11-2021 Blood Sugar Diagnostic (Onetouch Ultra Test) strip Start: 06-11-2021 End: 06-12-2021 Blood Sugar Diagnostic (Onetouch Ultra Test) strip Start: 06-12-2021 End: 01-20-2023 Pen Needle, Diabetic (Bd Ultra-Fine Orig Pen Needle) 29 gauge x 1/2 needle Start: 09-08-2018 End: 09-22-2019 Pen Needle, Diabetic (Bd Ultra-Fine Orig Pen Needle) 29 gauge x 1/2 needle Start: 09-22-2019 End: 06-11-2021 Pen Needle, Diabetic (Bd Ultra-Fine Orig Pen Needle) 29 gauge x 1/2 needle Start: 06-11-2021 End: 06-12-2021 Pen Needle, Diabetic (Bd Ultra-Fine Orig Pen Needle) 29 gauge x 1/2 needle Start: 03-03-2018 End: 09-08-2018 Blood Sugar Diagnostic (Onetouch Ultra Test) strip Start: 01-20-2023 Pen Needle, Diabetic (Bd Ultra-Fine Orig Pen Needle) 29 gauge x 1/2 needle Start: 06-12-2021 Blood Sugar Diagnostic (Onetouch Ultra Test) strip Start: 02-28-2021 End: 02-28-2021 Blood Sugar Diagnostic (Onetouch Ultra Test) strip Start: 02-28-2021 End: 06-11-2021 Blood Sugar Diagnostic (Onetouch Ultra Test) strip Start: 03-05-2021 End: 06-11-2021 Blood Sugar Diagnostic (Onetouch Ultra Test) strip Start: 06-11-2021 End: 06-12-2021 Blood Sugar Diagnostic (Onetouch Ultra Test) strip Start: 06-12-2021 End: 01-20-2023 Pen Needle, Diabetic (Bd Ultra-Fine Orig Pen Needle) 29 gauge x 1/2 needle Start: 09-08-2018 End: 09-22-2019 Pen Needle, Diabetic (Bd Ultra-Fine Orig Pen Needle) 29 gauge x 1/2 needle Start: 09-22-2019 End: 06-11-2021 Pen Needle, Diabetic (Bd Ultra-Fine Orig Pen Needle) 29 gauge x 1/2 needle Start: 06-11-2021 End: 06-12-2021 Pen Needle, Diabetic (Bd Ultra-Fine Orig Pen Needle) 29 gauge x 1/2 needle Start: 03-03-2018 End: 09-08-2018 Blood Sugar Diagnostic (Onetouch Ultra Test) strip Start: 01-20-2023 Pen Needle, Diabetic (Bd Ultra-Fine Orig Pen Needle) 29 gauge x 1/2 needle Start: 06-12-2021 Blood Sugar Diagnostic (Onetouch Ultra Test) strip Start: 02-28-2021 End: 02-28-2021 Blood Sugar Diagnostic (Onetouch Ultra Test) strip Start: 02-28-2021 End: 06-11-2021 Blood Sugar Diagnostic (Onetouch Ultra Test) strip Start: 03-05-2021 End: 06-11-2021 Blood Sugar Diagnostic (Onetouch Ultra Test) strip Start: 06-11-2021 End: 06-12-2021 Blood Sugar Diagnostic (Onetouch Ultra Test) strip Start: 06-12-2021 End: 01-20-2023 Pen Needle, Diabetic (Bd Ultra-Fine Orig Pen Needle) 29 gauge x 1/2 needle Start: 09-08-2018 End: 09-22-2019 Pen Needle, Diabetic (Bd Ultra-Fine Orig Pen Needle) 29 gauge x 1/2 needle Start: 09-22-2019 End: 06-11-2021 Pen Needle, Diabetic (Bd Ultra-Fine Orig Pen Needle) 29 gauge x 1/2 needle Start: 06-11-2021 End: 06-12-2021 Pen Needle, Diabetic (Bd Ultra-Fine Orig Pen Needle) 29 gauge x 1/2 needle Start: 03-03-2018 End: 09-08-2018 Blood Sugar Diagnostic (Onetouch Ultra Test) strip Start: 01-20-2023 Pen Needle, Diabetic (Bd Ultra-Fine Orig Pen Needle) 29 gauge x 1/2 needle Start: 06-12-2021 Blood Sugar Diagnostic (Onetouch Ultra Test) strip Start: 02-28-2021 End: 02-28-2021 Blood Sugar Diagnostic (Onetouch Ultra Test) strip Start: 02-28-2021 End: 06-11-2021 Blood Sugar Diagnostic (Onetouch Ultra Test) strip Start: 03-05-2021 End: 06-11-2021 Blood Sugar Diagnostic (Onetouch Ultra Test) strip Start: 06-11-2021 End: 06-12-2021 Blood Sugar Diagnostic (Onetouch Ultra Test) strip Start: 06-12-2021 End: 01-20-2023 Pen Needle, Diabetic (Bd Ultra-Fine Orig Pen Needle) 29 gauge x 1/2 needle Start: 09-08-2018 End: 09-22-2019 Pen Needle, Diabetic (Bd Ultra-Fine Orig Pen Needle) 29 gauge x 1/2 needle Start: 09-22-2019 End: 06-11-2021 Pen Needle, Diabetic (Bd Ultra-Fine Orig Pen Needle) 29 gauge x 1/2 needle Start: 06-11-2021 End: 06-12-2021 Pen Needle, Diabetic (Bd Ultra-Fine Orig Pen Needle) 29 gauge x 1/2 needle Start: 03-03-2018 End: 09-08-2018 Blood Sugar Diagnostic (Onetouch Ultra Test) strip Start: 06-12-2023 Pen Needle, Diabetic (Bd Ultra-Fine Orig Pen Needle) 29 gauge x 1/2 needle Start: 06-12-2023 Blood Sugar Diagnostic (Onetouch Ultra Test) strip Start: 02-28-2021 End: 02-28-2021 Blood Sugar Diagnostic (Onetouch Ultra Test) strip Start: 02-28-2021 End: 06-11-2021 Blood Sugar Diagnostic (Onetouch Ultra Test) strip Start: 03-05-2021 End: 06-11-2021 Blood Sugar Diagnostic (Onetouch Ultra Test) strip Start: 06-11-2021 End: 06-12-2021 Blood Sugar Diagnostic (Onetouch Ultra Test) strip Start: 06-12-2021 End: 01-20-2023 Blood Sugar Diagnostic (Onetouch Ultra Test) strip Start: 01-20-2023 End: 06-12-2023 Pen Needle, Diabetic (Bd Ultra-Fine Orig Pen Needle) 29 gauge x 1/2 needle Start: 09-08-2018 End: 09-22-2019 Pen Needle, Diabetic (Bd Ultra-Fine Orig Pen Needle) 29 gauge x 1/2 needle Start: 09-22-2019 End: 06-11-2021 Pen Needle, Diabetic (Bd Ultra-Fine Orig Pen Needle) 29 gauge x 1/2 needle Start: 06-11-2021 End: 06-12-2021 Pen Needle, Diabetic (Bd Ultra-Fine Orig Pen Needle) 29 gauge x 1/2 needle Start: 06-12-2021 End: 06-12-2023 Pen Needle, Diabetic (Bd Ultra-Fine Orig Pen Needle) 29 gauge x 1/2 needle Start: 03-03-2018 End: 09-08-2018 Blood Sugar Diagnostic (Onetouch Ultra Test) strip Start: 06-12-2023 Pen Needle, Diabetic (Bd Ultra-Fine Orig Pen Needle) 29 gauge x 1/2 needle Start: 06-12-2023 Blood Sugar Diagnostic (Onetouch Ultra Test) strip Start: 02-28-2021 End: 02-28-2021 Blood Sugar Diagnostic (Onetouch Ultra Test) strip Start: 02-28-2021 End: 06-11-2021 Blood Sugar Diagnostic (Onetouch Ultra Test) strip Start: 03-05-2021 End: 06-11-2021 Blood Sugar Diagnostic (Onetouch Ultra Test) strip Start: 06-11-2021 End: 06-12-2021 Blood Sugar Diagnostic (Onetouch Ultra Test) strip Start: 06-12-2021 End: 01-20-2023 Blood Sugar Diagnostic (Onetouch Ultra Test) strip Start: 01-20-2023 End: 06-12-2023 Pen Needle, Diabetic (Bd Ultra-Fine Orig Pen Needle) 29 gauge x 1/2 needle Start: 09-08-2018 End: 09-22-2019 Pen Needle, Diabetic (Bd Ultra-Fine Orig Pen Needle) 29 gauge x 1/2 needle Start: 09-22-2019 End: 06-11-2021 Pen Needle, Diabetic (Bd Ultra-Fine Orig Pen Needle) 29 gauge x 1/2 needle Start: 06-11-2021 End: 06-12-2021 Pen Needle, Diabetic (Bd Ultra-Fine Orig Pen Needle) 29 gauge x 1/2 needle Start: 06-12-2021 End: 06-12-2023 Pen Needle, Diabetic (Bd Ultra-Fine Orig Pen Needle) 29 gauge x 1/2 needle Start: 03-03-2018 End: 09-08-2018 Blood Sugar Diagnostic (Onetouch Ultra Test) strip Start: 06-12-2023 Pen Needle, Diabetic (Bd Ultra-Fine Orig Pen Needle) 29 gauge x 1/2 needle Start: 06-12-2023 Blood Sugar Diagnostic (Onetouch Ultra Test) strip Start: 02-28-2021 End: 02-28-2021 Blood Sugar Diagnostic (Onetouch Ultra Test) strip Start: 02-28-2021 End: 06-11-2021 Blood Sugar Diagnostic (Onetouch Ultra Test) strip Start: 03-05-2021 End: 06-11-2021 Blood Sugar Diagnostic (Onetouch Ultra Test) strip Start: 06-11-2021 End: 06-12-2021 Blood Sugar Diagnostic (Onetouch Ultra Test) strip Start: 06-12-2021 End: 01-20-2023 Blood Sugar Diagnostic (Onetouch Ultra Test) strip Start: 01-20-2023 End: 06-12-2023 Pen Needle, Diabetic (Bd Ultra-Fine Orig Pen Needle) 29 gauge x 1/2 needle Start: 09-08-2018 End: 09-22-2019 Pen Needle, Diabetic (Bd Ultra-Fine Orig Pen Needle) 29 gauge x 1/2 needle Start: 09-22-2019 End: 06-11-2021 Pen Needle, Diabetic (Bd Ultra-Fine Orig Pen Needle) 29 gauge x 1/2 needle Start: 06-11-2021 End: 06-12-2021 Pen Needle, Diabetic (Bd Ultra-Fine Orig Pen Needle) 29 gauge x 1/2 needle Start: 06-12-2021 End: 06-12-2023 Pen Needle, Diabetic (Bd Ultra-Fine Orig Pen Needle) 29 gauge x 1/2 needle Start: 03-03-2018 End: 09-08-2018 Blood Sugar Diagnostic (Onetouch Ultra Test) strip Start: 06-12-2023 Pen Needle, Diabetic (Bd Ultra-Fine Orig Pen Needle) 29 gauge x 1/2 needle Start: 06-12-2023 Blood Sugar Diagnostic (Onetouch Ultra Test) strip Start: 02-28-2021 End: 02-28-2021 Blood Sugar Diagnostic (Onetouch Ultra Test) strip Start: 02-28-2021 End: 06-11-2021 Blood Sugar Diagnostic (Onetouch Ultra Test) strip Start: 03-05-2021 End: 06-11-2021 Blood Sugar Diagnostic (Onetouch Ultra Test) strip Start: 06-11-2021 End: 06-12-2021 Blood Sugar Diagnostic (Onetouch Ultra Test) strip Start: 06-12-2021 End: 01-20-2023 Blood Sugar Diagnostic (Onetouch Ultra Test) strip Start: 01-20-2023 End: 06-12-2023 Pen Needle, Diabetic (Bd Ultra-Fine Orig Pen Needle) 29 gauge x 1/2 needle Start: 09-08-2018 End: 09-22-2019 Pen Needle, Diabetic (Bd Ultra-Fine Orig Pen Needle) 29 gauge x 1/2 needle Start: 09-22-2019 End: 06-11-2021 Pen Needle, Diabetic (Bd Ultra-Fine Orig Pen Needle) 29 gauge x 1/2 needle Start: 06-11-2021 End: 06-12-2021 Pen Needle, Diabetic (Bd Ultra-Fine Orig Pen Needle) 29 gauge x 1/2 needle Start: 06-12-2021 End: 06-12-2023 Pen Needle, Diabetic (Bd Ultra-Fine Orig Pen Needle) 29 gauge x 1/2 needle Start: 03-03-2018 End: 09-08-2018 Blood Sugar Diagnostic (Onetouch Ultra Test) strip Start: 06-12-2023 Pen Needle, Diabetic (Bd Ultra-Fine Orig Pen Needle) 29 gauge x 1/2 needle Start: 06-12-2023 Blood Sugar Diagnostic (Onetouch Ultra Test) strip Start: 02-28-2021 End: 02-28-2021 Blood Sugar Diagnostic (Onetouch Ultra Test) strip Start: 02-28-2021 End: 06-11-2021 Blood Sugar Diagnostic (Onetouch Ultra Test) strip Start: 03-05-2021 End: 06-11-2021 Blood Sugar Diagnostic (Onetouch Ultra Test) strip Start: 06-11-2021 End: 06-12-2021 Blood Sugar Diagnostic (Onetouch Ultra Test) strip Start: 06-12-2021 End: 01-20-2023 Blood Sugar Diagnostic (Onetouch Ultra Test) strip Start: 01-20-2023 End: 06-12-2023 Pen Needle, Diabetic (Bd Ultra-Fine Orig Pen Needle) 29 gauge x 1/2 needle Start: 09-08-2018 End: 09-22-2019 Pen Needle, Diabetic (Bd Ultra-Fine Orig Pen Needle) 29 gauge x 1/2 needle Start: 09-22-2019 End: 06-11-2021 Pen Needle, Diabetic (Bd Ultra-Fine Orig Pen Needle) 29 gauge x 1/2 needle Start: 06-11-2021 End: 06-12-2021 Pen Needle, Diabetic (Bd Ultra-Fine Orig Pen Needle) 29 gauge x 1/2 needle Start: 06-12-2021 End: 06-12-2023 Pen Needle, Diabetic (Bd Ultra-Fine Orig Pen Needle) 29 gauge x 1/2 needle Start: 03-03-2018 End: 09-08-2018 Blood Sugar Diagnostic (Onetouch Ultra Test) strip Start: 06-12-2023 Pen Needle, Diabetic (Bd Ultra-Fine Orig Pen Needle) 29 gauge x 1/2 needle Start: 06-12-2023 Blood Sugar Diagnostic (Onetouch Ultra Test) strip Start: 02-28-2021 End: 02-28-2021 Blood Sugar Diagnostic (Onetouch Ultra Test) strip Start: 02-28-2021 End: 06-11-2021 Blood Sugar Diagnostic (Onetouch Ultra Test) strip Start: 03-05-2021 End: 06-11-2021 Blood Sugar Diagnostic (Onetouch Ultra Test) strip Start: 06-11-2021 End: 06-12-2021 Blood Sugar Diagnostic (Onetouch Ultra Test) strip Start: 06-12-2021 End: 01-20-2023 Blood Sugar Diagnostic (Onetouch Ultra Test) strip Start: 01-20-2023 End: 06-12-2023 Pen Needle, Diabetic (Bd Ultra-Fine Orig Pen Needle) 29 gauge x 1/2 needle Start: 09-08-2018 End: 09-22-2019 Pen Needle, Diabetic (Bd Ultra-Fine Orig Pen Needle) 29 gauge x 1/2 needle Start: 09-22-2019 End: 06-11-2021 Pen Needle, Diabetic (Bd Ultra-Fine Orig Pen Needle) 29 gauge x 1/2 needle Start: 06-11-2021 End: 06-12-2021 Pen Needle, Diabetic (Bd Ultra-Fine Orig Pen Needle) 29 gauge x 1/2 needle Start: 06-12-2021 End: 06-12-2023 Pen Needle, Diabetic (Bd Ultra-Fine Orig Pen Needle) 29 gauge x 1/2 needle Start: 03-03-2018 End: 09-08-2018 Blood Sugar Diagnostic (Onetouch Ultra Test) strip Start: 06-12-2023 Pen Needle, Diabetic (Bd Ultra-Fine Orig Pen Needle) 29 gauge x 1/2 needle Start: 06-12-2023 Blood Sugar Diagnostic (Onetouch Ultra Test) strip Start: 02-28-2021 End: 02-28-2021 Blood Sugar Diagnostic (Onetouch Ultra Test) strip Start: 02-28-2021 End: 06-11-2021 Blood Sugar Diagnostic (Onetouch Ultra Test) strip Start: 03-05-2021 End: 06-11-2021 Blood Sugar Diagnostic (Onetouch Ultra Test) strip Start: 06-11-2021 End: 06-12-2021 Blood Sugar Diagnostic (Onetouch Ultra Test) strip Start: 06-12-2021 End: 01-20-2023 Blood Sugar Diagnostic (Onetouch Ultra Test) strip Start: 01-20-2023 End: 06-12-2023 Pen Needle, Diabetic (Bd Ultra-Fine Orig Pen Needle) 29 gauge x 1/2 needle Start: 09-08-2018 End: 09-22-2019 Pen Needle, Diabetic (Bd Ultra-Fine Orig Pen Needle) 29 gauge x 1/2 needle Start: 09-22-2019 End: 06-11-2021 Pen Needle, Diabetic (Bd Ultra-Fine Orig Pen Needle) 29 gauge x 1/2 needle Start: 06-11-2021 End: 06-12-2021 Pen Needle, Diabetic (Bd Ultra-Fine Orig Pen Needle) 29 gauge x 1/2 needle Start: 06-12-2021 End: 06-12-2023 Pen Needle, Diabetic (Bd Ultra-Fine Orig Pen Needle) 29 gauge x 1/2 needle Start: 03-03-2018 End: 09-08-2018 Blood Sugar Diagnostic (Onetouch Ultra Test) strip Start: 06-12-2023 Pen Needle, Diabetic (Bd Ultra-Fine Orig Pen Needle) 29 gauge x 1/2 needle Start: 06-12-2023 Blood Sugar Diagnostic (Onetouch Ultra Test) strip Start: 02-28-2021 End: 02-28-2021 Blood Sugar Diagnostic (Onetouch Ultra Test) strip Start: 02-28-2021 End: 06-11-2021 Blood Sugar Diagnostic (Onetouch Ultra Test) strip Start: 03-05-2021 End: 06-11-2021 Blood Sugar Diagnostic (Onetouch Ultra Test) strip Start: 06-11-2021 End: 06-12-2021 Blood Sugar Diagnostic (Onetouch Ultra Test) strip Start: 06-12-2021 End: 01-20-2023 Blood Sugar Diagnostic (Onetouch Ultra Test) strip Start: 01-20-2023 End: 06-12-2023 Pen Needle, Diabetic (Bd Ultra-Fine Orig Pen Needle) 29 gauge x 1/2 needle Start: 09-08-2018 End: 09-22-2019 Pen Needle, Diabetic (Bd Ultra-Fine Orig Pen Needle) 29 gauge x 1/2 needle Start: 09-22-2019 End: 06-11-2021 Pen Needle, Diabetic (Bd Ultra-Fine Orig Pen Needle) 29 gauge x 1/2 needle Start: 06-11-2021 End: 06-12-2021 Pen Needle, Diabetic (Bd Ultra-Fine Orig Pen Needle) 29 gauge x 1/2 needle Start: 06-12-2021 End: 06-12-2023 Pen Needle, Diabetic (Bd Ultra-Fine Orig Pen Needle) 29 gauge x 1/2 needle Start: 03-03-2018 End: 09-08-2018 Blood Sugar Diagnostic (Onetouch Ultra Test) strip Start: 06-12-2023 Pen Needle, Diabetic (Bd Ultra-Fine Orig Pen Needle) 29 gauge x 1/2 needle Start: 06-12-2023 Blood Sugar Diagnostic (Onetouch Ultra Test) strip Start: 02-28-2021 End: 02-28-2021 Blood Sugar Diagnostic (Onetouch Ultra Test) strip Start: 02-28-2021 End: 06-11-2021 Blood Sugar Diagnostic (Onetouch Ultra Test) strip Start: 03-05-2021 End: 06-11-2021 Blood Sugar Diagnostic (Onetouch Ultra Test) strip Start: 06-11-2021 End: 06-12-2021 Blood Sugar Diagnostic (Onetouch Ultra Test) strip Start: 06-12-2021 End: 01-20-2023 Blood Sugar Diagnostic (Onetouch Ultra Test) strip Start: 01-20-2023 End: 06-12-2023 Pen Needle, Diabetic (Bd Ultra-Fine Orig Pen Needle) 29 gauge x 1/2 needle Start: 09-08-2018 End: 09-22-2019 Pen Needle, Diabetic (Bd Ultra-Fine Orig Pen Needle) 29 gauge x 1/2 needle Start: 09-22-2019 End: 06-11-2021 Pen Needle, Diabetic (Bd Ultra-Fine Orig Pen Needle) 29 gauge x 1/2 needle Start: 06-11-2021 End: 06-12-2021 Pen Needle, Diabetic (Bd Ultra-Fine Orig Pen Needle) 29 gauge x 1/2 needle Start: 06-12-2021 End: 06-12-2023 Pen Needle, Diabetic (Bd Ultra-Fine Orig Pen Needle) 29 gauge x 1/2 needle Start: 03-03-2018 End: 09-08-2018 Goals Date Patient Goal Desired Activity /State Mental Status Date Assessment Result Facility 06-26-2024 Cognitive function Voice/Name [facility] Work Phone: 12-25-2022 Cognitive function Voice/Name [facility] Work Phone: 07-31-2022 Cognitive function Voice/Name [facility] Work Phone: Clinical Notes 05-08-2022 to 12-23-2024 Note Date & Type Note Facility 12-23-2024 Progress note [facility] 09-15-2024 Evaluation note Diagnosis Onset Date Resolution 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 September 15, 2024 9:59am Hyperlipidemia chronic September 15, 2024 1:40pm Overweight chronic September 15 1:40pm Type 2 diabetes mellitus without complications chronic September 15, 2024 1:40pm Cold sore acute December 05, 2024 3:44pm Insomnia disorder acute Septemb er 2024 3:44pm Migraines acute December 05, 2024 3:44pm Diarrhea inactive November 8:14am [facility] Work Phone: 1(588) 968-450406-19-2025 Evaluation note* Diagnosis Onset Date Resolution Status Admit Date 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 September 15, 2024 9:59am Hyperlipidemia chronic September 15, 2024 1:40pm Overweight chronic September 15 1:40pm Type 2 diabetes mellitus without complications chronic September 15, 2024 1:40pm Cold sore acute December 05, 2024 3:44pm Insomnia disorder acute Septemb er 2024 3:44pm Migraines acute December 05, 2024 3:44pm Diarrhea inactive November 8:14am 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 December 29 9:45am [facility] Work Phone: 1(289) 916-943006-19-2025 Progress [facility] [address] [place] [id number] OFFICE VISIT Date of Service: 09/15/24 1000 MR#: [id number] Acct: [id number] Name: ISABELLE NAGY Rep #: [id number] : 1980 From: Arelis Hughes ch 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 June 25, 2022 mammogram: 1.9 cm irregular focal asymmetry in the right breast and a second 0.9 cm focal asymmetry at 5:00. June 25, 2022 right breast and axilla ultrasound: 1.9 cm in maximum diameter irregular solid mass in the right breast at 5:00 posterior depth highly suggestive of malignancy in addition to a 1 cm lesion at 5:00 in the retroareolar region. No significant abnormalities were seen in the right axilla. July 01, 2022: A. Right breast at 5 o?clock, 3 cm, biopsy: Mild fibrocystic change. No evidence of malignancy. B. Right breast at 5 o?clock, 7 cm, biopsy: Invasive ductal carcinoma with the follow characteristics: Nuclear grade - 2-3 Maximal length - 10 millimeters ANTIBODY / CLONE RESULT Block B P53 (DO-7) positive, 80% Ki-67 (30-9) positive, 90% CK8 ([id number]) positive CK5-6 (D5 & 1684) negative Calponin-1 (KG062Z) negative P40 (BC28) negative E-Cad (ECH-6) positive SULLIVAN-2 (SP21) positive MORPHOMETRIC ANALYSIS ER (clone 6F11) 65%, weak to moderate intensity AZ (clone 16/1E2) 45%, weak to moderate intensity Her-2Neu (clone CB11) 3+ December 25, 2022 right breast lumpectomy with sentinel lymph node biopsy: FROZEN SECTION DIAGNOSIS A. Right sentinel lymph nodes, biopsy: Two out of two lymph nodes, negative for metastatic carcinoma. SJ:sahra 12/25/2022 MICROSCOPIC DIAGNOSIS A. Right sentinel lymph nodes, biopsy: Two out of two lymph nodes, negative for metastatic carcinoma. See comment. B. Right breast mass, lumpectomy with needle localization: No evidence of residual carcinoma. Changes consistent with previous biopsy site. January 11, 2025 BNM/Bone Scan Whole Body (requested to address reports of persistent pain involving bilat forearms) IMPRESSION: 1. The increase in radiopharmaceutical concentration defined in the bilateral shoulders, the knees bilaterally, the fourth lumbar vertebra is most consistent with degenerative arthritis. 2. There is no definitive typical scintigraphic evidence of skeletal metastatic disease Treatment summary and response: * Neoadjuvant TCHP August 04, 2022?November 17, 2022 (6 cycles): Complete pathologic r emission * Herceptin maintenance December 2022?August 2023 (concluded at 1 year) * Tamoxifen February 2023-July 2024 * Adjuvant radiation therapy to the right breast consisting of 4000 cGy delivered to the entire breast and 4800 cGy delivered to the lumpectomy cavity all in 15 fractions with a simultaneous integrated boost technique. She was treated using a 3D conformal treatment plan with 10 MV photons. Date of First Treatment: 02/09/2023 Date of Last Treatment: 03/02/2023 Interval History The patient is presenting to clinic for a routine 3 month follow up. Stopped tamoxifen on August 06, 2024 per self d/t bone/joint pain, teeth pain. States side effects were limiting all of her daily activities. She is aware this is AMA but states I need to be able to live. Reports she is now able to go to the gym 5 times/week, lifting weights and walking 3 miles per day. Concerns today include new skin lesion right posterior thigh. Noted 2 months ago, has not changed in size or color. Non pruritic not painful. Denies any other skin changes. Otherwise denies dizziness, headaches, CP, palpitations, coughing, SOB, abd pain, N/V, changes in her bowel habits, swelling/pain of her extremities. [facility] Medical History History of breast cancer Chronic kidney disease History of renal disease Bone pain Screening for osteoporosis Visit for pelvic exam Well adult exam History of Clostridium difficile infection History of echocardiogram C. difficile diarrhea Hypokalemia Left ankle pain Anemia Encounter for chemotherapy management Encounter for monitoring cardiotoxic drug therapy Wears glasses Cancer Anxiety Insulin dependent diabetes mellitus Back pain Dietary restriction Former smoker Shortness of breath on exertion Hx of tear of ACL (anterior cruciate ligament) Liver hemangioma Encounter for insertion of venous access port Abnormal MRI Encounter for education CINV (chemotherapy-induced nausea and vomiting) Invasive ductal carcinoma of right breast Migraines Adopted Cleft lip Herpes simplex Hypercholesterolemia Surgical History Hx of hysterectomy S/P CECILE-BSO History of lumpectomy of right breast Status post right breast lumpectomy Hx of surgical procedure Hx of nasal septoplasty Hx of tonsillectomy Cleft palate and cleft lip Family History Other Adopted Social History Smoking Status: Former smoker second hand exposure: No alcohol intake: never substance use type: does not use additional social history: Boyfriend-Bhupendra ROS ROS Narrative Negative except as documented in the interval HPI Intake Vital Signs 05/16/24 11:20 09/02/24 17:49 09/15/24 10:00 Height 5 ft 3 in 5 ft 3 in 5 ft 3 in Weight: 143 lb BMI 25.3 BP 95/65 Blood Pressure Location Lt brachial Position Sitting Respiration 16 Pulse 74 Pulse Source Monitor Temp 98.3 F Temperature Source Temporal Artery Pulse Oximetry (%) 99 Oxygen Delivery Method room air Intake Collar Worker Required: No Accompanied by: Self Is patient in pain?: No Allergies codeine Allergy (Severe, Verified 09/15/24 10:03) rash hydrocodone (From Vicodin) Allergy (Severe, Verified 09/15/24 10:03) rash Penicillins Allergy (Severe, Verified 09/15/24 10:03) rash propoxyphene (From Darvocet-N) Allergy (Severe, Verified 09/15/24 10:03) rash caffeine Adverse Reaction (Severe, Verified 09/15/24 10:03) migraine Medications ?Medication ?Instructions ?Recorded ?Confirmed ?Type multivitamin 1 tab PO DAILY 12/01/1708/28 History sumatriptan succinate 100 mg tablet 100 mg PO PRN PRN MIGRAINES 07/28/22 09/15/24 History blood sugar diagnostic (OneTouch #100 ea 06/12/2309/21 Rx Ultra Test strips) pen needle, diabetic 29 gauge x #270 ea 06/12/2309/02 Rx 1/2 (BD Ultra-Fine Original Pen Needle) valacyclovir 1 gram tablet 1,000 mg PO TID PRN cod sor e 7 09/07/23 09/15/24 Rx days #21 tabs benzonatate 200 mg capsule 200 mg PO TID PRN cough #60 caps 12/30/23 09/15/24 Rx calcium 600 mg (as 1 tab PO DAILY 01/26/2408/28 History carbonate)-vitamin D3 5 mcg (200 unit) tablet atorvastatin 20 mg tablet 20 mg PO QDAY 06/06/2409/15 History glyburide 5 mg tablet 10 mg (2 x 5 mg) PO BID 90 d ays 06/06/24 09/15/24 Rx #360 tabs loratadine 10 mg tablet (Claritin) 10 mg PO DAILY PRN 06/06/24 09/15/24 History antiarthritic combination no.2 900 600 mg PO 06/22/24 09/15/24 History mg tablet (glucosamine-chondroitin) biotin 10,000 mcg capsule mcg PO 06/22/24 09/15/24 His tory insulin aspart U-100 100 unit/mL 100 unit subcut USEAS DIRECTD 90 06/22/24 09/15/24 Rx (3 mL) subcutaneous pen (Novolog days #90 mL FlexPen U-100 Insulin aspart) topiramate 100 mg tablet 100 mg PO QDAY 06/22/2408/28 History Mounjaro 10 mg/0.5 mL subcutaneous 10 mg (0.5 mL) subc ut QWEEK #2 mL 08/08/24 09/15/24 Rx pen injector (tirzepatide) triamcinolone acetonide 0.5 % 1 applic topical TID PRN 09/15/24 History topical cream zolpidem 10 mg tablet 10 mg PO QHS insomnia History Central Venous Access Central Venous Access: No Laboratory Tests 09/14/24 15:34 WBC 6.2 Hgb 12.3 Hct 37.2 Plt Count 247 Absolute Neuts (auto) 3.0 Sodium 142 Potassium 4.0 Chloride 106 Carbon Dioxide 24.9 BUN 15 Creatinine 0.76 Glucose 40 L* Calcium 9.4 Total Bilirubin 0.19 AST 25 ALT 23 Alkaline Phosphatase 50 Albumin 4.5 Exam Physical Exam Narrative ECOG 0 Const alert, oriented x3 and no apparent distress General Appearance: comfortable HEENT normocephalic Face and Sinus: normal facial exam Mouth: oral and palatal mucosa normal Eyes General Eye: normal appearance of both eyes Neck no lymphadenopathy and no JVD Lymph Lymphatic: no lymphadenopathy noted Chest Chest Narrative: Mostly symmetrical. Shows well-healed scar within the right axilla and breast. No palpable masses, skin abnormalities, nipple discharge or retraction bilaterally. Patient examined in the upright and supine position. Resp clear to auscultation bilaterally Cardio regular rate and regular rhythm Jugular Venous Distention: Negative for JVD GI soft to palpation, non-tender and non-distended; Negative for hepatosplenomegaly Back/Spine no thoracic nor lumbar tenderness Extremity no clubbing, cyanosis or edema Skin Skin Narrative: Small raised mildly erythematous lesion right posterior thigh Rashes: no rashes Neuro oriented x3, CN's II-XII intact bilaterally and moves all extremities Speech: speech normal Gait (Neuro): normal gait Psych mental status grossly normal Coding Level of Care Code Off vis,est,level 4 Exam Problem Focused Diagnoses Invasive ductal carcinoma of right breast C50.911 Assessment and Plan Assessment and Plan (1) Invasive ductal carcinoma of right breast: Status: Chronic Orders: Orders CBC W/Diff, Automated 4 Weeks C50.911 - Malignant neoplasm of unspecified site of right female breast Comprehensive Metabolic Profil 4 Weeks C50.911 - Malignant neoplasm of unspecified site of right female breast Referrals Dermatology C50.911 - Malignant neoplasm of unspecified site of right female breast Plan 44-year-old female premenopausal at diagnosis with invasive ductal cancer of theright breast clinical stage I (T1c, N0, M0); cancer is ER positive (65%, weak tomoderate) AZ positive (45%, weak to moderate) HER2/gaviota overexpressed 3+, Ki67 +90%. Patient is G0, P0 does not intend having any children and was adopted with no known family history. Genetic testing at [facility] showed no known deleterious mutation. Received 6 cycles of neoadjuvant systemic therapy with TCHP July?October. Main toxicity noted is acute diarrhea and prerenal azotemia, all resolved after completion of treatment. She has some paresthesias in the right foot but she isalso diabetic. November 2022 underwent right breast lumpectomy with sentinel lymph node biopsyand was found to bein complete pathologic response. 02/09/2023 ? 03/02/2023 Completed adjuvant radiation therapy to the right breast Concluded 1 year of adjuvant Herceptin August 2023. Started adjuvant hormonal therapy with tamoxifen January 2023. Underwent laparoscopic robotic hysterectomy bilateral salpingectomy and oophorectomies January 2024 Chronic comorbid conditions: Diabetes, dyslipidemia, migraine headache and degenerative joint disease. Plan: Based on NCCN guidelines and up-to-date review of treatment of early stagehormone receptor positive HER2/gaviota positive invasive ductal cancer with intent to cure: 1. She was advised to continue adjuvant hormonal therapy with tamoxifen for at least 5 years with consideration for a total of 10 years of adjuvant hormonal therapy and to switch to to an AI mid course. Alternatively, she was offered Rx for exemestane (given her main complaint with adjuvant endocrine therapy with musculoskeletal discomfort). She declined. 2. Bone density February 2023 was normal, follow-up in 2 years. 3. Screening mammography up-to-date June 2024. 4. Refer to dermatology?new skin lesion right posterior thigh. Follow-up in 4 months. 09/15/24 1058 h EDDI OVER SHORT AND DAMAGE CLERK-C> Date _ Arelis Wang NP OVER SHORT AND DAMAGE CLERK-C Cosigner Signature: Date (if applicable) CC: ~ [facility]06-19-2025 Progress note Author Arelis Wang [facility] Note Date/Time September 15, 2024 10:5 8am [facility] [address] [address] OFFICE VISIT Date of Service: 09/15/24 1000 MR#: [id number] Acct: [id number] Name: ISABELLE NAGY THOMAS Rep #: [id number] : 1980 From: Arelis LAZAROC Age/Sex: 44/F Location: [facility] [place] Status: Signed HPI Subjective Date of Service 09/15/24 Chief Complaint breast cancer on treatment History of Present Illness 44-year-old female, premenopausal at presentation following an abnormal screening mammogram. June 25, 2022 mammogram: 1.9 cm irregular focal asymmetry in the right breast and a second 0.9 cm focal asymmetry at 5:00. June 25, 2022 right breast and axilla ultrasound: 1.9 cm in maximum diameter irregular solid mass in the right breast at 5:00 posterior depth highly suggestive of malignancy in addition to a 1 cm lesion at 5:00 in the retroareolar region. No significant abnormalities were seen in the right axilla. July 01, 2022: A. Right breast at 5 o?clock, 3 cm, biopsy: Mild fibrocystic change. No evidence of malignancy. B. Right breast at 5 o?clock, 7 cm, biopsy: Invasive ductal carcinoma with the follow characteristics: Nuclear grade - 2-3 Maximal length - 10 millimeters ANTIBODY / CLONE RESULT Block B P53 (DO-7) positive, 80% Ki-67 (30-9) positive, 90% CK8 ([id number]) positive CK5-6 (D5 & 1684) negative Calponin-1 (BX252M) negative P40 (BC28) negative E-Cad (ECH-6) positive SULLIVAN-2 (SP21) positive MORPHOMETRIC ANALYSIS ER (clone 6F11) 65%, weak to moderate intensity AZ (clone 16/1E2) 45%, weak to moderate intensity Her-2Neu (clone CB11) 3+ December 25, 2022 right breast lumpectomy with sentinel lymph node biopsy: FROZEN SECTION DIAGNOSIS A. Right sentinel lymph nodes, biopsy: Two out of two lymph nodes, negative for metastatic carcinoma. SJ:sahra 12/25/2022 MICROSCOPIC DIAGNOSIS A. Right sentinel lymph nodes, biopsy: Two out of two lymph nodes, negative for metastatic carcinoma. See comment. B. Right breast mass, lumpectomy with needle localization: No evidence of residual carcinoma. Changes consistent with previous biopsy site. January 11, 2025 BNM/Bone Scan Whole Body (requested to address reports of persistent pain involving bilat forearms) IMPRESSION: 1. The increase in radiopharmaceutical concentration defined in the bilateral shoulders, the knees bilaterally, the fourth lumbar vertebra is most consistent with degenerative arthritis. 2. There is no definitive typical scintigraphic evidence of skeletal metastatic disease Treatment summary and response: * Neoadjuvant TCHP August 04, 2022?November 17, 2022 (6 cycles): Complete pathologic r emission * Herceptin maintenance December 2022?August 2023 (concluded at 1 year) * Tamoxifen February 2023-July 2024 * Adjuvant radiation therapy to the right breast consisting of 4000 cGy delivered to the entire breast and 4800 cGy delivered to the lumpectomy cavity all in 15 fractions with a simultaneous integrated boost technique. She was treated using a 3D conformal treatment plan with 10 MV photons. Date of First Treatment: 02/09/2023 Date of Last Treatment: 03/02/2023 Interval History The patient is presenting to clinic for a routine 3 month follow up. Stopped tamoxifen on August 06, 2024 per self d/t bone/joint pain, teeth pain. States side effects were limiting all of her daily activities. She is aware this is AMA but states I need to be able to live. Reports she is now able to go to the gym 5 times/week, lifting weights and walking 3 miles per day. Concerns today include new skin lesion right posterior thigh. Noted 2 months ago, has not changed in size or color. Non pruritic not painful. Denies any other skin changes. Otherwise denies dizziness, headaches, CP, palpitations, coughing, SOB, abd pain, N/V, changes in her bowel habits, swelling/pain of her extremities. [facility] Medical History History of breast cancer Chronic kidney disease History of renal disease Bone pain Screening for osteoporosis Visit for pelvic exam Well adult exam History of Clostridium difficile infection History of echocardiogram C. difficile diarrhea Hypokalemia Left ankle pain Anemia Encounter for chemotherapy management Encounter for monitoring cardiotoxic drug therapy Wears glasses Cancer Anxiety Insulin dependent diabetes mellitus Back pain Dietary restriction Former smoker Shortness of breath on exertion Hx of tear of ACL (anterior cruciate ligament) Liver hemangioma Encounter for insertion of venous access port Abnormal MRI Encounter for education CINV (chemotherapy-induced nausea and vomiting) Invasive ductal carcinoma of right breast Migraines Adopted Cleft lip Herpes simplex Hypercholesterolemia Surgical History Hx of hysterectomy S/P CECILE-BSO History of lumpectomy of right breast Status post right breast lumpectomy Hx of surgical procedure Hx of nasal septoplasty Hx of tonsillectomy Cleft palate and cleft lip Family History Other Adopted Social History Smoking Status: Former smoker second hand exposure: No alcohol intake: never substance use type: does not use additional social history: Boyfriend-Bhupendra ROS ROS Narrative Negative except as documented in the interval HPI Intake Vital Signs 05/16/24 11:20 09/02/24 17:49 09/15/24 10:00 Height 5 ft 3 in 5 ft 3 in 5 ft 3 in Weight: 143 lb BMI 25.3 BP 95/65 Blood Pressure Location Lt brachial Position Sitting Respiration 16 Pulse 74 Pulse Source Monitor Temp 98.3 F Temperature Source Temporal Artery Pulse Oximetry (%) 99 Oxygen Delivery Method room air Intake Collar Worker Required: No Accompanied by: Self Is patient in pain?: No Allergies codeine Allergy (Severe, Verified 09/15/24 10:03) rash hydrocodone (From Vicodin) Allergy (Severe, Verified 09/15/24 10:03) rash Penicillins Allergy (Severe, Verified 09/15/24 10:03) rash propoxyphene (From Darvocet-N) Allergy (Severe, Verified 09/15/24 10:03) rash caffeine Adverse Reaction (Severe, Verified 09/15/24 10:03) migraine Medications ?Medication ?Instructions ?Recorded ?Confirmed ?Type multivitamin 1 tab PO DAILY 12/01/1708/28 History sumatriptan succinate 100 mg tablet 100 mg PO PRN PRN MIGRAINES 07/28/22 09/15/24 History blood sugar diagnostic (OneTouch #100 ea 06/12/2309/21 Rx Ultra Test strips) pen needle, diabetic 29 gauge x #270 ea 06/12/2309/02 Rx 1/2 (BD Ultra-Fine Original Pen Needle) valacyclovir 1 gram tablet 1,000 mg PO TID PRN cod sor e 7 09/07/23 09/15/24 Rx days #21 tabs benzonatate 200 mg capsule 200 mg PO TID PRN cough #60 caps 12/30/23 09/15/24 Rx calcium 600 mg (as 1 tab PO DAILY 01/26/2408/28 History carbonate)-vitamin D3 5 mcg (200 unit) tablet atorvastatin 20 mg tablet 20 mg PO QDAY 06/06/2409/15 History glyburide 5 mg tablet 10 mg (2 x 5 mg) PO BID 90 d ays 06/06/24 09/15/24 Rx #360 tabs loratadine 10 mg tablet (Claritin) 10 mg PO DAILY PRN 06/06/24 09/15/24 History antiarthritic combination no.2 900 600 mg PO 06/22/24 09/15/24 History mg tablet (glucosamine-chondroitin) biotin 10,000 mcg capsule mcg PO 06/22/24 09/15/24 His tory insulin aspart U-100 100 unit/mL 100 unit subcut USEAS DIRECTD 90 06/22/24 09/15/24 Rx (3 mL) subcutaneous pen (Novolog days #90 mL FlexPen U-100 Insulin aspart) topiramate 100 mg tablet 100 mg PO QDAY 06/22/2408/28 History Mounjaro 10 mg/0.5 mL subcutaneous 10 mg (0.5 mL) subc ut QWEEK #2 mL 08/08/24 09/15/24 Rx pen injector (tirzepatide) triamcinolone acetonide 0.5 % 1 applic topical TID PRN 09/15/24 History topical cream zolpidem 10 mg tablet 10 mg PO QHS insomnia History Central Venous Access Central Venous Access: No Laboratory Tests 09/14/24 15:34 WBC 6.2 Hgb 12.3 Hct 37.2 Plt Count 247 Absolute Neuts (auto) 3.0 Sodium 142 Potassium 4.0 Chloride 106 Carbon Dioxide 24.9 BUN 15 Creatinine 0.76 Glucose 40 L* Calcium 9.4 Total Bilirubin 0.19 AST 25 ALT 23 Alkaline Phosphatase 50 Albumin 4.5 Exam Physical Exam Narrative ECOG 0 Const alert, oriented x3 and no apparent distress General Appearance: comfortable HEENT normocephalic Face and Sinus: normal facial exam Mouth: oral and palatal mucosa normal Eyes General Eye: normal appearance of both eyes Neck no lymphadenopathy and no JVD Lymph Lymphatic: no lymphadenopathy noted Chest Chest Narrative: Mostly symmetrical. Shows well-healed scar within the right axilla and breast. No palpable masses, skin abnormalities, nipple discharge or retraction bilaterally. Patient examined in the upright and supine position. Resp clear to auscultation bilaterally Cardio regular rate and regular rhythm Jugular Venous Distention: Negative for JVD GI soft to palpation, non-tender and non-distended; Negative for hepatosplenomegaly Back/Spine no thoracic nor lumbar tenderness Extremity no clubbing, cyanosis or edema Skin Skin Narrative: Small raised mildly erythematous lesion right posterior thigh Rashes: no rashes Neuro oriented x3, CN's II-XII intact bilaterally and moves all extremities Speech: speech normal Gait (Neuro): normal gait Psych mental status grossly normal Coding Level of Care Code Off vis,est,level 4 Exam Problem Focused Diagnoses Invasive ductal carcinoma of right breast C50.911 Assessment and Plan Assessment and Plan (1) Invasive ductal carcinoma of right breast: Status: Chronic Orders: Orders CBC W/Diff, Automated 4 Weeks C50.911 - Malignant neoplasm of unspecified site of right female breast Comprehensive Metabolic Profil 4 Weeks C50.911 - Malignant neoplasm of unspecified site of right female breast Referrals Dermatology C50.911 - Malignant neoplasm of unspecified site of right female breast Plan 44-year-old female premenopausal at diagnosis with invasive ductal cancer of theright breast clinical stage I (T1c, N0, M0); cancer is ER positive (65%, weak tomoderate) AZ positive (45%, weak to moderate) HER2/gaviota overexpressed 3+, Ki67 +90%. Patient is G0, P0 does not intend having any children and was adopted with no known family history. Genetic testing at [facility] showed no known deleterious mutation. Received 6 cycles of neoadjuvant systemic therapy with TCHP July?October. Main toxicity noted is acute diarrhea and prerenal azotemia, all resolved after completion of treatment. She has some paresthesias in the right foot but she isalso diabetic. November 2022 underwent right breast lumpectomy with sentinel lymph node biopsyand was found to be in complete pathologic response. 02/09/2023 ? 03/02/2023 Completed adjuvant radiation therapy to the right breast Concluded 1 year of adjuvant Herceptin August 2023. Started adjuvant hormonal therapy with tamoxifen January 2023. Underwent laparoscopic robotic hysterectomy bilateral salpingectomy and oophorectomies January 2024 Chronic comorbid conditions: Diabetes, dyslipidemia, migraine headache and degenerative joint disease. Plan: Based on NCCN guidelines and up-to-date review of treatment of early stagehormone receptor positive HER2/gaviota positive invasive ductal cancer with intent to cure: 1. She was advised to continue adjuvant hormonal therapy with tamoxifen for at least 5 years with consideration for a total of 10 years of adjuvant hormonal therapy and to switch to to an AI mid course. Alternatively, she was offered Rx for exemestane (given her main complaint with adjuvant endocrine therapy with musculoskeletal discomfort). She declined. 2. Bone density February 2023 was normal, follow-up in 2 years. 3. Screening mammography up-to-date June 2024. 4. Refer to dermatology?new skin lesion right posterior thigh. Follow-up in 4 months. 09/15/24 1058 <Electronically signed by Arelis carvajal NP OVER SHORT AND DAMAGE CLERK-C> Date _ Arelis Wang OVER SHORT AND DAMAGE CLERK OVER SHORT AND DAMAGE CLERK-C Cosigner Signature: Date (if applicable) CC: ~ [facility] Services Work Phone: [phone] Discharge summary [facility] Medical Records Department [address] [place] [address] Emergency Department Summary 06/26/24 MR#: [id number] Acct: [id number] Name: ISABELLE NAGY Rep #:[id number] : 1980 44 From: Elvin Dennis PCP: ZAC Gallardo Status:REG ER Location: ED HPI History of Present Illness Chief Complaint: Chest Pain Informant: patient and spouse/S.O. Narrative Narrative: Continues pain left scapula goes across sharp in nature for the last 2 days. This morning left-sided sharp chest pain with pressure. States in the waiting room had shortness of breath nausea and lightheaded symptoms. No cardiac history. Hypertension hyperlipidemia history. No diabetes. Adopted therefore unclear on family history. No tobacco history. History of breast cancer in thepast no current chemo. No history of PE or DVT. No recent travel or surgery. No recent cough. Prior Similar Symptoms: No CVD Risk Factors: Positive for Hypertension and Hypercholesterolemia; Negative for Diabetes or Smoking PE Risk Factors: Positive for Cancer; Negative for Recent Travel/Surgery, RecentImmobilization, Prior DVT or PE or OCP + Smoking + >/=35 PFSH PFSH Medical History History of breast cancer Chronic kidney disease History of renal disease Bone pain Screening for osteoporosis Visit for pelvic exam Well adult exam History of Clostridium difficile infection History of echocardiogram C. difficile diarrhea Hypokalemia Left ankle pain Anemia Encounter for chemotherapy management Encounter for monitoring cardiotoxic drug therapy Wears glasses Cancer Anxiety Insulin dependent diabetes mellitus Back pain Dietary restriction Former smoker Shortness of breath on exertion Hx of tear of ACL (anterior cruciate ligament) Liver hemangioma Encounter for insertion of venous access port Abnormal MRI Encounter for education CINV (chemotherapy-induced nausea and vomiting) Invasive ductal carcinoma of right breast Migraines Adopted Cleft lip Herpes simplex Hypercholesterolemia Home Medications ?Medication ?Instructions ?Recorded ?Last Taken ?Type multivitamin 1 tab PO DAILY 12/01/1701/28 History sumatriptan succinate 100 mg tablet 100 mg PO PRN PRN MIGRAINES 07/28/22 Unknown History blood sugar diagnostic (OneTouch #100 ea 06/12/23 Unkn own Rx Ultra Test strips) pen needle, diabetic 29 gauge x #270 ea 06/12/23 Unkno wn Rx 03/31 (BD Ultra-Fine Original Pen Needle) valacyclovir 1 gram tablet 1,000 mg PO TID PRN cod sor e 7 09/07/23 Unknown Rx days #21 tabs benzonatate 200 mg capsule 200 mg PO TID PRN cough #60 caps 12/30/23 Unknown Rx calcium 600 mg (as 1 tab PO DAILY 01/26/2401/28 History carbonate)-vitamin D3 5 mcg (200 unit) tablet atorvastatin 20 mg tablet 20 mg PO QDAY 06/06/24 Unkno wn History glyburide 5 mg tablet 10 mg (2 x 5 mg) PO BID 90 d ays 06/06/24 Unknown Rx #360 tabs loratadine 10 mg tablet (Claritin) 10 mg PO DAILY PRN 06/06/24 Unknown History tamoxifen 20 mg tablet 20 mg PO DAILY #90 TABLETS 0 06/06/24 Unknown Rx triamcinolone acetonide 0.5 % 1 applic topical TID #22 grams 06/06/24 Unknown Rx topical cream zolpidem 10 mg tablet 10 mg PO QHS PRN insomnia #3 0 tabs 06/06/24 Unknown Rx antiarthritic combination no.2 900 600 mg PO 06/22/24 Unknown History mg tablet (glucosamine-chondroitin) biotin 10,000 mcg capsule mcg PO 06/22/24 Unknown Hist ory insulin aspart U-100 100 unit/mL 100 unit subcut USEAS DIRECTD 90 06/22/24 Unknown Rx (3 mL) subcutaneous pen (Novolog days #90 mL FlexPen U-100 Insulin aspart) tirzepatide 5 mg/0.5 mL 5 mg (0.5 mL) subcut QWEEK # 2 mL 06/22/24 Unknown Rx subcutaneous pen injector (Emilee) topiramate 100 mg tablet 100 mg PO QDAY 06/22/24 Unkn own History Allergy/AdvReac Type Severity Reaction Status Date / Time codeine Allergy Severe rash Verified 06/26/24 16:28 hydrocodone (From Vicodin) Allergy Severe rash Verified 06/26/24 16:28 Penicillins Allergy Severe rash Verified 06/26/24 16:28 propoxyphene (From Allergy Severe rash Verified 06/26/24 16:28 Darvocet-N) caffeine AdvReac Severe migraine Verified 06/26/24 16:28 Family History Other Adopted Surgical History Hx of hysterectomy S/P CECILE-BSO History of lumpectomy of right breast Status post right breast lumpectomy Hx of surgical procedure Hx of nasal septoplasty Hx of tonsillectomy Cleft palate and cleft lip Social History Smoking Status: Former smoker second hand exposure: No alcohol intake: never substance use type: does not use additional social history: Boyfriend-Bhupendra TSANG ROS ED Constitutional Constitutional ED: Denies chills, fever(s) or sweats ENT ENT ED: Denies sore throat Cardiovascular Cardiovascular: Reports chest pain; Denies leg edema, palpitations or racing heartbeat Respiratory/Chest Respiratory/Chest: Reports dyspnea; Denies cough or dyspnea on exertion Gastrointestinal Gastrointestinal: Reports nausea; Denies abdominal pain, diarrhea or vomiting Genitourinary Genitourinary ED: Denies dysuria, hematuria or urinary frequency Musculoskeletal Musculoskeletal: Reports back pain; Denies extremity pain or neck pain Integumentary Denies rash or wounds Neurologic Neurologic: Denies headache(s), paresthesias or weakness EXAM Physical Exam Const Vital Signs: 06/26/24 16:27 06/26/24 16:35 06/26/24 16:45 Temperature 97.8 F Temperature Source Temporal Pulse Rate 89 83 80 Respiratory Rate 20 H 20 H 15 Respiratory Effort Blood Pressure 131/93 H Blood Pressure Mean 105 Pulse Ox 98 97 97 Oxygen Delivery Method Room Air 06/26/24 16:47 06/26/24 16:48 06/26/24 16:49 Temperature Temperature Source Pulse Rate 80 Respiratory Rate 20 H Respiratory Effort Normal Non-Labored Blood Pressure 125/74 H Blood Pressure Mean 88 Pulse Ox 95 Oxygen Delivery Method Room Air 06/26/24 17:00 06/26/24 17:15 06/26/24 17:34 Temperature Temperature Source Pulse Rate 77 79 93 Respiratory Rate 23 H 26 H 25 H Respiratory Effort Blood Pressure 113/80 118/77 Blood Pressure Mean 89 91 Pulse Ox 95 89 Oxygen Delivery Method 06/26/24 17:45 06/26/24 18:00 06/26/24 19:00 Temperature Temperature Source Pulse Rate 91 80 81 Respiratory Rate 23 H 19 H 24 H Respiratory Effort Blood Pressure 101/89 H Blood Pressure Mean 93 Pulse Ox 98 98 Oxygen Delivery Method Room Air 06/26/24 20:05 Temperature Temperature Source Pulse Rate 79 Respiratory Rate 22 H Respiratory Effort Blood Pressure 129/74 H Blood Pressure Mean 92 Pulse Ox 99 Oxygen Delivery Method Room Air Positive well nourished and well developed General Appearance ED: well developed and NAD HEENT Reports moist mucous membranes normocephalic and atraumatic Eyes General Eye ED: Yes normal appearance of both eyes Neck full ROM Neck Narrative: Negative Spurling's test of the neck. Chest Wall Chest: Negative for tenderness Resp normal respiratory effort and normal air movement Effort and Inspection: symmetric chest movement; Negative for respiratory distress Cardio regular rate, regular rhythm and no murmurs Peripheral Pulses: pulses 2+ throughout GI normal to inspection, nondistended, normoactive bowel sounds and non-tender Palpation: Negative for guarding or rebound tenderness present Extremity normal to inspection General Extremety ED: Negative for edema or tenderness General Extremity: Negative for edema Neuro oriented x3 and no sensory deficits noted Sensorium / Orientation: awake and alert Skin no rashes or lesions noted and no wounds Heart Score History: Slightly/Non-Suspicious ECG: Nonspecific Repolarization Age: >45 - <65 years Risk Factors: 1 or 2 Risk Factors Troponin: Score: 3 MDM MDM MDM Narrative Medical decision making narrative: Interventions / MDM: Differential diagnosis: Chest pain, back pain history of remote breast cancer Diagnosis considered but do not suspect: ACS however workup negative. PE/dissection however CT negative. My EKG interpretation: Sinus rate of 79, no ST changes. T wave version leads III and aVF flatteninganterior leads. Similar findings January 2024. Imaging independently reviewed and interpreted by myself: 2 view chest x-ray: Noacute process. CTA chest: No acute process. External documents reviewed: N/A Test considered but not ordered:N/A ED course: Patient presenting chest pains on and off this morning with exertion. Scapular pain cancer history no current chemo. Cardiac workup initiated along with D-dimer. EKG T wave version flattening anterior leads similar to January 2024. 1800: Patient negative D-dimer sent for chest x-ray interpreted by myself shows no acute process troponin less than 6. Reevaluation still having pain that would come and go pain in left shoulder. Discussed with waxing waning symptoms will further image with CT chest for further evaluation. Will await delta troponin. 2010: Repeat troponin negative CT angiogram chest negative. Reassured on findings. She states she follows Dr. Cole, cardiology. She will follow-up with him further testing as needed discussed strictreturn precautions. All questions were answered. Re-evaluation: stable Disposition discussed with patient/family/significant other: Patient and significant other Case discussed with consulting clinician: N/A This note was generated with Rizzoma dictation software. It may contain incorrectwords, spelling, and punctuation that were not noted in checking the note beforesigning. Lab Data Attestation: I reviewed the patient's lab results. Labs: Laboratory Results - last 24 hr 06/26/24 06/26/24 16:45 18:44 WBC 6.0 RBC 4.27 Hgb 12.5 Hct 37.1 MCV 86.9 MCH 29.3 MCHC 33.7 RDW Std Deviation 41.0 RDW Coeff of Aline 12.9 Plt Count 237 MPV 8.8 Immature Gran % (Auto) 0.200 Neut % (Auto) 48.9 Lymph % (Auto) 40.6 [place] % (Auto) 7.9 Eos % (Auto) 1.7 Baso % (Auto) 0.7 Absolute Neuts (auto) 2.9 Absolute Lymphs (auto) 2.42 Nucleated RBC % 0 D-Dimer Quant (PE/DVT) 0.27 Sodium 140 Potassium 3.9 Chloride 105 Carbon Dioxide 22.2 Anion Gap 13 BUN 17 Creatinine 0.84 Estim Creat Clear Calc 78.28 Est GFR (MDRD) Non-Af 86 BUN/Creatinine Ratio 20.5 H Glucose 146 H Calcium 9.5 Troponin T High Sens < 6 Troponin T Hi Sens 2 Hr < 6 Radiography Diagnostic Testing: Clinical Impression(s) from Imaging Studies Chest X-Ray 06/26/24 17:22 IMPRESSION: No active cardiopulmonary disease. Reading Location: [facility] Chest CTA 06/26/24 18:01 IMPRESSION: No evidence of pulmonary embolism or other significant abnormalities. [facility] Dis[facility] Triage Chief Complaint: Chest Pain ED Provider: Elvin Green Dx/Rx/DC Orders Clinical Impression: Chest pain, Back pain Instructions: ED Chest Pain, Uncertain Cause Prescriptions: No Action biotin 10,000 mcg capsule PO topiramate 100 mg tablet 100 mg PO QDAY glucosamine-chondroitin 900 mg tablet 600 mg PO Mounjaro 5 mg/0.5 mL pen injector 5 mg subcut QWEEK Qty: 2 3RF insulin aspart U-100 [Novolog FlexPen U-100 Insulin] 100 unit/mL (3 mL) insulin pen 100 unit subcut USEASDIRECTD MDD 100 90 Days Qty: 90 3RF multivitamin tablet 1 tab PO DAILY (DME) pen needle, diabetic [BD Ultra-Fine Orig Pen Needle] 29 gauge x 1/2 needle See Dose Instructions .ROUTE .MEDSUPPLY Qty: 270 3RF Dose Instruction: As directed Rx Instructions: As directed for insulin injections (DME) OneTouch Ultra Test Strip See Rx Instructions .ROUTE .MEDSUPPLY Qty: 100 3RF Rx Instructions: As directed valacyclovir 1 gram tablet 1,000 mg PO TID PRN (Reason: cod sore) 7 Days Qty: 21 12RF atorvastatin 20 mg tablet 20 mg PO QDAY glyburide 5 mg tablet 10 mg PO BID 90 Days Qty: 360 3RF tamoxifen 20 mg tablet 20 mg PO DAILY Qty: 90 3RF zolpidem 10 mg tablet 10 mg PO QHS PRN (Reason: insomnia) Qty: 30 5RF triamcinolone acetonide 0.5 % cream 1 applic topical TID Qty: 22 0RF sumatriptan succinate 100 mg tablet 100 mg PO PRN PRN (Reason: MIGRAINES) loratadine [Claritin] 10 mg tablet 10 mg PO DAILY PRN calcium carbonate-vitamin D3 600 mg-5 mcg (200 unit) tablet 1 tab PO DAILY benzonatate 200 mg capsule 200 mg PO TID PRN (Reason: cough) Qty: 60 6RF Primary Care Provider: Jose Loving NP Referrals: Ulises Cole MD [Med Staff - Active Staff] - 3-5 Days Jose Loving NP, OVER SHORT AND DAMAGE CLERK-C [Primary Care Provider] - Activity Restrictions/Additional Instructions: Cardiac workup negative D-dimer negative CTA chest negative. Call Dr. Moon's office for further testing. If you develop worsening symptoms, return to the EDfor reevaluation. Print Language: Ecuadorean Disposition Disposition: Home, Self Care What to do if you have Problems For any increased pain, shortness of breath, bleeding, nausea or vomiting, chestpain, or any unexpected problems, contact your Primary Care Provider. Call [facility] ([phone]) or report tothe closest Emergency Room. Call 911 if necessary. 06/26/242015 Cosigner Signature (if applicable): CC: ZAC Loving ~ Signed [facility]03-30-2025 Radiology Diagnostic study note [facility] Imaging Services [address] [place] [address] [id number] CTA Chest W/WO Contrast MR#: [id number] Acct: [id number] Name: ISABELLE NAGY Rep #: [id number] : 1980 F 44 From: Lakia Mcgee MD PCP: ZAC Gallardo Status: [facility] ER Study:CTA Chest W/WO Contrast Date of Exam: 06/26/24 Exam# [id number] Ordering Dr: Elvin Green DO PROCEDURE: CTA CHEST W/WO CONTRAST 06/26/2024 REASON FOR EXAM: PAIN TECHNIQUE: Contiguous axial scans of 1.25 mm slice thicknesses. Sagittal and coronal reconstruction images were obtained. One or more dose reduction techniques were used (e.g., automated exposure control, adjustment of mAand/or kv according to patient size, use of iterative reconstruction technique). CONTRAST: Isovue 370 VOLUME: 100mL RADIATION DOSE SUMMARY: CTDlvol: 26.45 mGy DLP: 440.63 mGycm COMPARISON: PA and lateral chest dated 06/26/2024 FINDINGS: Hardware: Unremarkable Lymph nodes: No lymphadenopathy. Heart: Normal heart size. RV/LV Diameter Ratio: Normal. Thoracic Aorta: Normal. Pulmonary Vessels: No intraluminal filling defects. No dilatation centrally. Lungs and Airways: No consolidation or nodules. Pleura: No pleural effusions, pneumothorax, or thickening. Upper Abdomen: Unremarkable. Bones: Normal. CT/CTA Chest W/WO Contrast IMPRESSION: No evidence of pulmonary embolism or other significant abnormalities. Reading Location: [facility] CC: ZAC Loving; Dr. Elvin Green DO ~ [employer] Special Education Teacher: Signed [facility]03-30-2025 Radiology Diagnostic study note [facility] Imaging Services [address] [place], [place] [id number] Chest PA and Lateral MR#: [id number] Acct: [id number] Name: ISABELLE NAGY Rep #: [id number] : 1980 F 44 From: Lakia Mcgee MD PCP: ZAC Gallardo Status: [facility] ER Study:Chest PA and Lateral Date of Exam: 06/26/24 Exam# [id number] Ordering Dr: Elvin Green DO PROCEDURE: CHEST PA AND LATERAL 06/26/2024 REASON FOR EXAM: PAIN CHEST PAIN RADIATING DOWN LEFT ARM. TECHNIQUE: Frontal and lateral views of the chest. COMPARISON: 07/31/2022. FINDINGS: Lungs: Lungs clear of pneumonia and congestion. Pleura: No pleural effusions, thickening, or pneumothorax. Heart: Normal in size and configuration. Mediastinum/Romelia: Unremarkable. Great vessels: Unremarkable. Bones/soft tissues: Unremarkable. Cardiac monitoring leads overlie the chest wall. RAD/Chest PA and Lateral IMPRESSION: No active cardiopulmonary disease. Reading Location: [facility] CC: ZAC Loving; Dr. Elvin Green DO ~ Em[employer] Special Education Teacher: Signed [facility]03-30-2025 Discharge summary Author Elvin Green [facility] Note Date/Time June 26, 2024 8:1 6pm [facility] Medical Records Department [address] [place] [address] Emergency Department Summary 06/26/24 MR#: [id number] Acct: [id number] Name: ISABELLE NAGY Rep #:[id number] : 1980 44 From: Elvin Dennis PCP: Jose Loving OVER SHORT AND DAMAGE CLERK-C Status:REG ER Location: ED HPI History of Present Illness Chief Complaint: Chest Pain Informant: patient and spouse/S.O. Narrative Narrative: Continues pain left scapula goes across sharp in nature for the last 2 days. This morning left-sided sharp chest pain with pressure. States in the waiting room had shortness of breath nausea and lightheaded symptoms. No cardiac history. Hypertension hyperlipidemia history. No diabetes. Adopted therefore unclear on family history. No tobacco history. History of breast cancer in thepast no current chemo. No history of PE or DVT. No recent travel or surgery. No recent cough. Prior Similar Symptoms: No CVD Risk Factors: Positive for Hypertension and Hypercholesterolemia; Negative for Diabetes or Smoking PE Risk Factors: Positive for Cancer; Negative for Recent Travel/Surgery, RecentImmobilization, Prior DVT or PE or OCP + Smoking + >/=35 PFSH PFSH Medical History History of breast cancer Chronic kidney disease History of renal disease Bone pain Screening for osteoporosis Visit for pelvic exam Well adult exam History of Clostridium difficile infection History of echocardiogram C. difficile diarrhea Hypokalemia Left ankle pain Anemia Encounter for chemotherapy management Encounter for monitoring cardiotoxic drug therapy Wears glasses Cancer Anxiety Insulin dependent diabetes mellitus Back pain Dietary restriction Former smoker Shortness of breath on exertion Hx of tear of ACL (anterior cruciate ligament) Liver hemangioma Encounter for insertion of venous access port Abnormal MRI Encounter for education CINV (chemotherapy-induced nausea and vomiting) Invasive ductal carcinoma of right breast Migraines Adopted Cleft lip Herpes simplex Hypercholesterolemia Home Medications ?Medication ?Instructions ?Recorded ?Last Taken ?Type multivitamin 1 tab PO DAILY 12/01/1701/28 History sumatriptan succinate 100 mg tablet 100 mg PO PRN PRN MIGRAINES 07/28/22 Unknown History blood sugar diagnostic (OneTouch #100 ea 06/12/23 Unkn own Rx Ultra Test strips) pen needle, diabetic 29 gauge x #270 ea 06/12/23 Unkno wn Rx / (BD Ultra-Fine Original Pen Needle) valacyclovir 1 gram tablet 1,000 mg PO TID PRN cod sor e 7 09/07/23 Unknown Rx days #21 tabs benzonatate 200 mg capsule 200 mg PO TID PRN cough #60 caps 12/30/23 Unknown Rx calcium 600 mg (as 1 tab PO DAILY 01/26/2401/28 History carbonate)-vitamin D3 5 mcg (200 unit) tablet atorvastatin 20 mg tablet 20 mg PO QDAY 06/06/24 Unkno wn History glyburide 5 mg tablet 10 mg (2 x 5 mg) PO BID 90 d ays 06/06/24 Unknown Rx #360 tabs loratadine 10 mg tablet (Claritin) 10 mg PO DAILY PRN 06/06/24 Unknown History tamoxifen 20 mg tablet 20 mg PO DAILY #90 TABLETS 0 06/06/24 Unknown Rx triamcinolone acetonide 0.5 % 1 applic topical TID #22 grams 06/06/24 Unknown Rx topical cream zolpidem 10 mg tablet 10 mg PO QHS PRN insomnia #3 0 tabs 06/06/24 Unknown Rx antiarthritic combination no.2 900 600 mg PO 06/22/24 Unknown History mg tablet (glucosamine-chondroitin) biotin 10,000 mcg capsule mcg PO 06/22/24 Unknown Hist ory insulin aspart U-100 100 unit/mL 100 unit subcut USEAS DIRECTD 90 06/22/24 Unknown Rx (3 mL) subcutaneous pen (Novolog days #90 mL FlexPen U-100 Insulin aspart) tirzepatide 5 mg/0.5 mL 5 mg (0.5 mL) subcut QWEEK # 2 mL 06/22/24 Unknown Rx subcutaneous pen injector (Sadiqunbridgette) topiramate 100 mg tablet 100 mg PO QDAY 06/22/24 Unkn own History Allergy/AdvReac Type Severity Reaction Status Date / Time codeine Allergy Severe rash Verified 06/26/24 16:28 hydrocodone (From Vicodin) Allergy Severe rash Verified 06/26/24 16:28 Penicillins Allergy Severe rash Verified 06/26/24 16:28 propoxyphene (From Allergy Severe rash Verified 06/26/24 16:28 Darvocet-N) caffeine AdvReac Severe migraine Verified 06/26/24 16:28 Family History Other Adopted Surgical History Hx of hysterectomy S/P CECILE-BSO History of lumpectomy of right breast Status post right breast lumpectomy Hx of surgical procedure Hx of nasal septoplasty Hx of tonsillectomy Cleft palate and cleft lip Social History Smoking Status: Former smoker second hand exposure: No alcohol intake: never substance use type: does not use additional social history: Boyfriend-Bhupendra TRINH ROS ED Constitutional Constitutional ED: Denies chills, fever(s) or sweats ENT ENT ED: Denies sore throat Cardiovascular Cardiovascular: Reports chest pain; Denies leg edema, palpitations or racing heartbeat Respiratory/Chest Respiratory/Chest: Reports dyspnea; Denies cough or dyspnea on exertion Gastrointestinal Gastrointestinal: Reports nausea; Denies abdominal pain, diarrhea or vomiting Genitourinary Genitourinary ED: Denies dysuria, hematuria or urinary frequency Musculoskeletal Musculoskeletal: Reports back pain; Denies extremity pain or neck pain Integumentary Denies rash or wounds Neurologic Neurologic: Denies headache(s), paresthesias or weakness EXAM Physical Exam Const Vital Signs: 06/26/24 16:27 06/26/24 16:35 06/26/24 16:45 Temperature 97.8 F Temperature Source Temporal Pulse Rate 89 83 80 Respiratory Rate 20 H 20 H 15 Respiratory Effort Blood Pressure 131/93 H Blood Pressure Mean 105 Pulse Ox 98 97 97 Oxygen Delivery Method Room Air 06/26/24 16:47 06/26/24 16:48 06/26/24 16:49 Temperature Temperature Source Pulse Rate 80 Respiratory Rate 20 H Respiratory Effort Normal Non-Labored Blood Pressure 125/74 H Blood Pressure Mean 88 Pulse Ox 95 Oxygen Delivery Method Room Air 06/26/24 17:00 06/26/24 17:15 06/26/24 17:34 Temperature Temperature Source Pulse Rate 77 79 93 Respiratory Rate 23 H 26 H 25 H Respiratory Effort Blood Pressure 113/80 118/77 Blood Pressure Mean 89 91 Pulse Ox 95 89 Oxygen Delivery Method 06/26/24 17:45 06/26/24 18:00 06/26/24 19:00 Temperature Temperature Source Pulse Rate 91 80 81 Respiratory Rate 23 H 19 H 24 H Respiratory Effort Blood Pressure 101/89 H Blood Pressure Mean 93 Pulse Ox 98 98 Oxygen Delivery Method Room Air 06/26/24 20:05 Temperature Temperature Source Pulse Rate 79 Respiratory Rate 22 H Respiratory Effort Blood Pressure 129/74 H Blood Pressure Mean 92 Pulse Ox 99 Oxygen Delivery Method Room Air Positive well nourished and well developed General Appearance ED: well developed and NAD HEENT Reports moist mucous membranes normocephalic and atraumatic Eyes General Eye ED: Yes normal appearance of both eyes Neck full ROM Neck Narrative: Negative Spurling's test of the neck. Chest Wall Chest: Negative for tenderness Resp normal respiratory effort and normal air movement Effort and Inspection: symmetric chest movement; Negative for respiratory distress Cardio regular rate, regular rhythm and no murmurs Peripheral Pulses: pulses 2+ throughout GI normal to inspection, nondistended, normoactive bowel sounds and non-tender Palpation: Negative for guarding or rebound tenderness present Extremity normal to inspection General Extremety ED: Negative for edema or tenderness General Extremity: Negative for edema Neuro oriented x3 and no sensory deficits noted Sensorium / Orientation: awake and alert Skin no rashes or lesions noted and no wounds Heart Score History: Slightly/Non-Suspicious ECG: Nonspecific Repolarization Age: >45 - <65 years Risk Factors: 1 or 2 Risk Factors Troponin: </= Normal Limit Score: 3 MDM MDM MDM Narrative Medical decision making narrative: Interventions / MDM: Differential diagnosis: Chest pain, back pain history of remote breast cancer Diagnosis considered but do not suspect: ACS however workup negative. PE/dissection however CT negative. My EKG interpretation: Sinus rate of 79, no ST changes. T wave version leads III and aVF flattening anterior leads. Similar findings January 2024. Imaging independently reviewed and interpreted by myself: 2 view chest x-ray: Noacute process. CTA chest: No acute process. External documents reviewed: N/A Test considered but not ordered:N/A ED course: Patient presenting chest pains on and off this morning with exertion. Scapular pain cancer history no current chemo. Cardiac workup initiated along with D-dimer. EKG T wave version flattening anterior leads similar to January 2024. 1800: Patient negative D-dimer sent for chest x-ray interpreted by myself shows no acute process troponin less than 6. Reevaluation still having pain that would come and go pain in left shoulder. Discussed with waxing waning symptoms will further image with CT chest for further evaluation. Will await delta troponin. 2010: Repeat troponin negative CT angiogram chest negative. Reassured on findings. She states she follows Dr. Cole, cardiology. She will follow-up with him further testing as needed discussed strict return precautions. All questions were answered. Re-evaluation: stable Disposition discussed with patient/family/significant other: Patient and significant other Case discussed with consulting clinician: N/A This note was generated with seedtagation software. It may contain incorrectwords, spelling, and punctuation that were not noted in checking the note beforesigning. Lab Data Attestation: I reviewed the patient's lab results. Labs: Laboratory Results - last 24 hr 06/26/24 06/26/24 16:45 18:44 WBC 6.0 RBC 4.27 Hgb 12.5 Hct 37.1 MCV 86.9 MCH 29.3 MCHC 33.7 RDW Std Deviation 41.0 RDW Coeff of Aline 12.9 Plt Count 237 MPV 8.8 Immature Gran % (Auto) 0.200 Neut % (Auto) 48.9 Lymph % (Auto) 40.6 [place] % (Auto) 7.9 Eos % (Auto) 1.7 Baso % (Auto) 0.7 Absolute Neuts (auto) 2.9 Absolute Lymphs (auto) 2.42 Nucleated RBC % 0 D-Dimer Quant (PE/DVT) 0.27 Sodium 140 Potassium 3.9 Chloride 105 Carbon Dioxide 22.2 Anion Gap 13 BUN 17 Creatinine 0.84 Estim Creat Clear Calc 78.28 Est GFR (MDRD) Non-Af 86 BUN/Creatinine Ratio 20.5 H Glucose 146 H Calcium 9.5 Troponin T High Sens < 6 Troponin T Hi Sens 2 Hr < 6 Radiography Diagnostic Testing: Clinical Impression(s) from Imaging Studies Chest X-Ray 06/26/24 17:22 IMPRESSION: No active cardiopulmonary disease. Reading Location: [facility] Chest CTA 06/26/24 18:01 IMPRESSION: No evidence of pulmonary embolism or other significant abnormalities. Reading Location: [facility] Discharge Plan Triage Chief Complaint: Chest Pain ED Provider: Elvin Green Dx/Rx/DC Orders Clinical Impression: Chest pain, Back pain Instructions: ED Chest Pain, Uncertain Cause Prescriptions: No Action biotin 10,000 mcg capsule PO topiramate 100 mg tablet 100 mg PO QDAY glucosamine-chondroitin 900 mg tablet 600 mg PO Mounjaro 5 mg/0.5 mL pen injector 5 mg subcut QWEEK Qty: 2 3RF insulin aspart U-100 [Novolog FlexPen U-100 Insulin] 100 unit/mL (3 mL) insulin pen 100 unit subcut USEASDIRECTD MDD 100 90 Days Qty: 90 3RF multivitamin tablet 1 tab PO DAILY (DME) pen needle, diabetic [BD Ultra-Fine Orig Pen Needle] 29 gauge x 1/2 needle See Dose Instructions .ROUTE .MEDSUPPLY Qty: 270 3RF Dose Instruction: As directed Rx Instructions: As directed for insulin injections (DME) OneTouch Ultra Test Strip See Rx Instructions .ROUTE .MEDSUPPLY Qty: 100 3RF Rx Instructions: As directed valacyclovir 1 gram tablet 1,000 mg PO TID PRN (Reason: cod sore) 7 Days Qty: 21 12RF atorvastatin 20 mg tablet 20 mg PO QDAY glyburide 5 mg tablet 10 mg PO BID 90 Days Qty: 360 3RF tamoxifen 20 mg tablet 20 mg PO DAILY Qty: 90 3RF zolpidem 10 mg tablet 10 mg PO QHS PRN (Reason: insomnia) Qty: 30 5RF triamcinolone acetonide 0.5 % cream 1 applic topical TID Qty: 22 0RF sumatriptan succinate 100 mg tablet 100 mg PO PRN PRN (Reason: MIGRAINES) loratadine [Claritin] 10 mg tablet 10 mg PO DAILY PRN calcium carbonate-vitamin D3 600 mg-5 mcg (200 unit) tablet 1 tab PO DAILY benzonatate 200 mg capsule 200 mg PO TID PRN (Reason: cough) Qty: 60 6RF Primary Care Provider: Jose Loving NP Referrals: Ulises Cole MD [Med Staff - Active Staff] - 3-5 Days Jose Loving NP, OVER SHORT AND DAMAGE CLERK-C [Primary Care Provider] - Activity Restrictions/Additional Instructions: Cardiac workup negative D-dimer negative CTA chest negative. Call Dr. Moon's office for further testing. If you develop worsening symptoms, return to the EDfor reevaluation. Print Language: Ecuadorean Disposition Disposition: Home, Self Care What to do if you have Problems For any increased pain, shortness of breath, bleeding, nausea or vomiting, chestpain, or any unexpected problems, contact your Primary Care Provider. Call [facility] ([phone]) or report to the closest Emergency Room. Call 911 if necessary. 06/26/242015 <Electronically signed by Elvin Dennis> Cosigner Signature (if applicable): CC: OVER SHORT AND DAMAGE CLERK-Ronaldo Loving ~ Signed [facility] Work Phone: 1(437) 211-967003-26-2025 Evaluation note* Diagnosis Onset Date Resolution Status Admit Date Chronic kidney disease chronic [facility] 2024 8:08am Hyperlipidemia chronic May 8:08am Overweight chronic June 22 8:08am 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 June 22, 2024 8:08am 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 September 15, 2024 9:59am Hyperlipidemia chronic September 15, 2024 1:40pm Overweight chronic September 15 1:40pm 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 September 15, 2024 1:40pm [facility] Work Phone: 1(203) 257-260103-10-2025 Evaluation note* Diagnosis Onset Date Resolution Status Admit Date Insomnia disorder acute May 282024 7:10pm Type 2 diabetes mellitus wit h features of insulin resistance acute M 2024 7:10pm Anemia chronic June 06 7:10pm Hyperlipidemia chronic May 7:10pm Chronic kidney disease chronic [facility] 2024 8:08am Hyperlipidemia chronic May 8:08am Overweight chronic June 22 8:08am 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 June 22, 2024 8:08am 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 September 15, 2024 9:59[facility] Work Phone: 1(718) 145-237712-20-2024 Evaluation note* Diagnosis Onset Date Resolution Status Admit Date Encounter for monitoring cardiotoxic drug therapy acute [facility] 2023 8:51am Hyperlipidemia chronic February 282023 8:51am Diabetes type 1, controlled deleted March 18, 2024 8:51am 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 April 18 2:16pm 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 May 16 025 11:18am Insomnia disorder acute May 282024 7:10pm Type 2 diabetes mellitus wit h features of insulin resistance acute [facility] 2024 7:10pm Anemia chronic June 06 7:10pm Hyperlipidemia chronic May 7:10pm Chronic kidney disease chronic [facility] 2024 8:08am Hyperlipidemia chronic May 8:08am Overweight chronic June 22 8:08am Type 2 diabetes mellitus without complications chronic May 8:08am [facility] Work Phone: 1(342) 542-961312-02-2024 Evaluation note* Diagnosis Onset Date Resolution Status Admit Date 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 February 28 8:34am Status post hysterectomy wit h oophorectomy acute March 14 8:21am 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 March 14 024 8:21am Encounter for monitoring cardiotoxic drug therapy acute [facility] 2023 8:51am Hyperlipidemia chronic February 282023 8:51am Diabetes type 1, controlled deleted March 18, 2024 8:51am 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 April 18 2:16pm 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 Endocervical and/or squamous metaplasticcells (endocervical component)are present.[facility] A#[id number][facility] on above:Satisfactory for evaluation. Endocervical and/or squamous metaplasticcells (endocervical component)are present.05-18-2023 NotePap Smear Specimen AdequacyFebruary 2023 5:16pmComment.Satisfactory for evaluation. Endocervical and/or squamous metaplasticcells (endocervical component)are present.[facility] A#[id number] [facility]Comm[facility] [place] on above:Satisfactory for evaluation. Endocervical and/or squamous metaplasticcells (endocervical component)are present.05-18-2023 NotePap Smear Specimen AdequacyFebruary 2023 5:16pmComment.Satisfactory for evaluation. Endocervical and/or squamous metaplasticcells (endocervical component)are present.[facility] A#[id number] [facility] HospitalCommcl[facility] [place] on above:Satisfactory for evaluation. Endocervical and/or squamous metaplasticcells (endocervical component)are present.05-18-2023 NotePap Smear Specimen AdequacyFebruary 2023 5:16pmComment.Satisfactory for evaluation. Endocervical and/or squamous metaplasticcells (endocervical component)are present.[facility] A#[id number] [facility] HospitalCommcl[facility] [place] on above:Satisfactory for evaluation. Endocervical and/or squamous metaplasticcells (endocervical component)are present.02-06-2023 Telephone encounter Note* Telephone Encounter - Deidre Vaughan - 2023 4:43 PM EST Called pt to see if [facility] appointment could be rescheduled. Left message to call office. [id number] Miscellaneous Notes* Telephone Encounter - Deidre Vaughan - 2023 4:43 PM EST Called pt to see if [facility] appointment could be rescheduled. Left message to call office. documented in this [place] [id number] Discharge summary Author Tha Rodriguez [facility] October 12, 2022 4:22pm Note Date/Time October 12, 2022 2:22 pm [facility] Medical Records Department [address] [place] [address] Emergency Department Summary 10/12/22 MR#: [id number] Acct: [id number] Name: ISABELLE NAGY Rep #:[id number] : 1980 42 From: Tha Rodriguez MD PCP: IVETH GallardoC Status:REG ER Location: ED HPI History of Present Illness Chief Complaint: Weakness Narrative Narrative: 42-year-old female past medical history of breast carcinoma, nonmetastatic, is undergoing her fourth round of chemotherapy which she received on Thursday, 7 daysago. She presents with generalized weakness, weakness of her legs and near syncope. She states that she has been nauseated since her chemotherapy. She usually takes ondansetron and receives a long-acting antiemetic when she receives her infusion through her medical port. Over the last 24 hours she has had multiple episodes of diarrhea, nonbloody, and watery stool. She vomited once yesterday. She denies any fevers or chills. No dysuria or hematuria. In review of her problem list she has had fatigue and exhaustion in the past. She presents because of her near syncope, feeling as if she were going to pass out, and her generalized weakness along with nausea. [facility] Medical History Abnormal MRI Adopted Anemia Anxiety Back pain Cancer Carpal tunnel syndrome CINV (chemotherapy-induced nausea and vomiting) Cleft lip Dietary restriction Encounter for chemotherapy management Encounter for education Encounter for monitoring cardiotoxic drug therapy Former smoker Herpes simplex History of steroid therapy Hx of tear of ACL (anterior cruciate ligament) Hypercholesterolemia Insulin dependent diabetes mellitus Invasive ductal carcinoma of right breast Left ankle pain Migraines Mononucleosis Shortness of breath on exertion Wears glasses Home Medications cetirizine 10 mg capsule (Zyrtec) 10 mg PO DAILY 12/01/17 [History Last Taken Unknown] multivitamin 1 tab PO DAILY 12/01/17 [History Last Taken Unknown] blood sugar diagnostic (Mgv Ultra Test strips) #100 ea 06/12/21 [Rx Last Taken Unknown] pen needle, diabetic 29 gauge x 1/2 (BD Ultra-Fine Original Pen Needle) #270 ea06/12/21 [Rx Last Taken Unknown] valacyclovir 1 gram tablet 1,000 mg PO TID PRN cod sore 7 days #21 tabs 06/12/21[Rx Last Taken Unknown] fenofibrate nanocrystallized 145 mg tablet 145 mg PO DAILY #90 tabs 04/21/22 [Rx Last Taken Unknown] sitagliptin phosphate 50 mg tablet (Januvia) 50 mg PO DAILY #90 tabs 04/22/22 [Rx Last Taken Unknown] zolpidem 10 mg tablet 10 mg PO QHS PRN insomnia #30 tabs 06/02/22 [Rx Last Taken Unknown] dexamethasone 4 mg tablet 4 mg PO BID #6 tabs 07/22/22 [Rx Last Taken Unknown] atorvastatin 20 mg tablet (Lipitor) 20 mg PO QHS 07/28/22 [History Last Taken Unknown] insulin lispro 100 unit/mL subcutaneous pen (Humalog KwikPen (U-100) Insulin) 0 - 100 unit subcut TID SLIDING SCALE 07/28/22 [History Last Taken 07/31/22] sumatriptan succinate 100 mg tablet 100 mg PO PRN PRN MIGRAINES 07/28/22 [History Last Taken Unknown] topiramate 100 mg tablet (Topamax) 100 mg PO QHS 07/28/22 [History Last Taken Unknown] vitamin B complex 1 cap PO DAILY 07/28/22 [History Last Taken Unknown] lidocaine-prilocaine 2.5 %-2.5 % topical cream 1 applic topical ONCE PRN PORT ACCESS 30 days #30 grams 07/29/22 [Rx Last Taken Unknown] loperamide 2 mg capsule (Anti-Diarrheal (loperamide)) 2 mg PO Q6H PRN loose stool 08/11/22 [History Last Taken Unknown] MAGIC MOUTH WASH (BMX) 180 mL suspension 15 ml PO .Q6HR #180 mL 08/14/22 [Rx Last Taken Unknown] mupirocin 2 % topical ointment 1 applic topical BID #22 grams 08/18/22 [Rx Last Taken Unknown] ondansetron 8 mg disintegrating tablet 8 mg PO Q8H PRN nausea and vomiting #30 tabs 10/06/22 [Rx Last Taken Unknown] Allergy/AdvReac Type Severity Reaction Status Date / Time codeine Allergy Severe rash Verified 10/06/22 08:01 hydrocodone [From Vicodin] Allergy Severe rash Verified 10/06/22 08:01 Penicillins Allergy Severe rash Verified 10/06/22 08:01 propoxyphene Allergy Severe rash Verified 10/06/22 08:01 [From Darvocet-N] caffeine AdvReac Severe migraine Verified 10/06/22 08:01 Surgical History Cleft palate and cleft lip Hx of nasal septoplasty Hx of tonsillectomy Social History Smoking Status: Former smoker how long ago did patient quit smoking: cut back on smoking, now vaping as well second hand exposure: No alcohol intake: never substance use type: does not use ROS ROS ED ROS Narrative Constitutional: No fever, no chills. Generalized weakness. HEENT: No sore throat. No neck pain. No loss of vision. No rhinorrhea. Cardiovascular: No chest pain. No palpitations. No pedal edema. Respiratory: No cough, no shortness of breath. Abdominal: No abdominal pain. No nausea. No vomiting. Genitourinary: No dysuria. No hematuria. Musculoskeletal: No myalgias. No arthralgias. Weakness in bilateral lower extremities. Neurologic: No headaches. No dizziness. Positive near syncope. Skin: No rash. No change in color. Psychiatric: No depression. No anxiety. EXAM Physical Exam Narrative Exam Narrative: Afebrile. Vital signs noted. HEENT: Normocephalic. Atraumatic. PERRL, EOMI. Neck soft and supple. No pointtenderness or step off. Cardiovascular: Regular rate and rhythm. No murmurs, rubs, or gallops appreciated. Respiratory: No tachypnea. Lungs clear to auscultation bilaterally. Gastrointestinal: Abdomen soft, nontender, with normoactive bowel sounds. No rebound or guarding. Neurological: Awake. Alert. Nonfocal, nonlateralizing. Skin: No rash. Normal color. No pallor. Musculoskeletal: No pedal edema. Full range of motion extremities. Moves all extremities. Able to sit up in bed without difficulty. Able to cross legs. Const Vital Signs: 10/12/22 13:57 10/12/22 14:16 Temperature 97.2 F L Temperature Source Temporal Pulse Rate 99 96 Respiratory Rate 18 18 Blood Pressure 111/81 H 111/76 Blood Pressure Mean 91 87 Pulse Ox 98 Oxygen Delivery Method Room Air Room Air MDM MDM MDM Narrative Medical decision making narrative: I reviewed her prior records. Once again she has had problems with fatigue and exhaustion and weakness in the past according to her problem list. Concern would be for dehydration given her reported multiple episodes of diarrhea and her 1 episode of vomiting. Comprehensive work-up was pursued. She is afebrile here and I am not concerned for neutropenic fever. EKG was obtained and interpreted by myself independently as normal sinus rhythm at 92 bpm without ectopy or acute ST changes. No STEMI. Normal QTc of 422. I reviewed the patient's laboratory work and she has a normal white count of 8.6and is not neutropenic. Hemoglobin stable at 10.4 with hematocrit 32.6. Platelet count normal at 221. LFTs show normal AST of 17 and normal ALT of 25. Lipase is normal at 25. Urinalysis was obtained and is negative for infection or ketones. I do not feel that any imaging is indicated. After 1 L normal saline, I do feel that she can be discharged to follow-up with her oncologist. She will continue drinking her Gatorade as she has in the past she states she isalso eating bananas. Return instructions to the emergency department were reviewed. I do not feel she requires observation. Disposition is discharged home in stable condition. History & Record Review Discussion w/independent historian: Patient Additional record(s) reviewed:: Prior ED visit Lab Data Attestation: I reviewed the patient's lab results. Labs: Laboratory Results - last 24 hr 10/12/22 10/12/22 14:30 15:38 WBC 8.6 RBC 3.41 L Hgb 10.4 L Hct 32.6 L MCV 95.6 MCH 30.5 MCHC 31.9 L RDW Std Deviation 55.3 H RDW Coeff of Aline 15.7 H Plt Count 221 MPV 9.4 Neut % (Auto) Not Reportable Sodium 139 Potassium 3.8 Chloride 107 Carbon Dioxide 26.0 Anion Gap 6 BUN 12 Creatinine 1.15 H Estim Creat Clear Calc 51.64 Est GFR (MDRD) Af Amer 66 Est GFR (MDRD) Non-Af 54 L BUN/Creatinine Ratio 10.4 Glucose 100 Calcium 9.4 Total Bilirubin 0.20 AST 17 ALT 25 Alkaline Phosphatase 98 Troponin I High Sens < 3 L Total Protein 6.9 Albumin 3.8 Globulin 3.1 Albumin/Globulin Ratio 1.2 Lipase 25 Urine Color Yellow Urine Clarity Clear Urine pH 6.0 Ur Specific [place] 1.010 Urine Protein 15 H Urine Glucose (UA) Normal Urine Ketones Negative Urine Occult Blood Negative Urine Nitrite Negative Urine Bilirubin Negative Urine Urobilinogen Normal Ur Leukocyte Esterase Negative Urine RBC 0 SEEN Urine WBC 0-5 SEEN Ur Squamous Epith Cells 0-5 SEEN Urine Bacteria 0 SEEN Urine Mucus 0 SEEN Discharge Plan Triage Chief Complaint: Weakness ED Provider: Tha Rodriguez Dx/Rx/DC Orders Clinical Impression: Diarrhea, Near syncope, Weakness Instructions: ED Diarrhea, Unknown Cause, ED Near-Fainting, Uncertain Cause, EDWeakness (Uncertain Cause) Prescriptions: No Action dexamethasone 4 mg tablet 4 mg PO BID Qty: 6 5RF Rx Instructions: Take the day before, the day of and the day after chemotherapy MAGIC MOUTH WASH (BMX) 180 mL suspension 15 ml PO .Q6HR Qty: 180 1RF Rx Instructions: diphenhydramine 12.5 mg/5 mL oral liquid 60 mL; aluminum-mag hydroxide- simethicone 400 mg-400 mg-40 mg/5 mL oral susp 60 mL; Lidocaine Viscous 2 % mucosal solution 60 mL; Per 180 mL loperamide [Anti-Diarrheal (loperamide)] 2 mg capsule 2 mg PO Q6H PRN (Reason: loose stool) ondansetron 8 mg tablet,disintegrating 8 mg PO Q8H PRN (Reason: nausea and vomiting) Qty: 30 2RF multivitamin tablet 1 tab PO DAILY cetirizine [Zyrtec] 10 mg capsule 10 mg PO DAILY (DME) OneTouch Ultra Test Strip See Rx Instructions .ROUTE .MEDSUPPLY Qty: 100 3RF Rx Instructions: As directed (DME) pen needle, diabetic [BD Ultra-Fine Orig Pen Needle] 29 gauge x 1/2 needle See Dose Instructions .ROUTE .MEDSUPPLY Qty: 270 3RF Dose Instruction: As directed Rx Instructions: As directed for insulin injections valacyclovir 1 gram tablet 1,000 mg PO TID PRN (Reason: cod sore) 7 Days Qty: 21 12RF fenofibrate nanocrystallized 145 mg tablet 145 mg PO DAILY Qty: 90 3RF Januvia 50 mg tablet 50 mg PO DAILY Qty: 90 3RF zolpidem 10 mg tablet 10 mg PO QHS PRN (Reason: insomnia) Qty: 30 5RF mupirocin 2 % ointment 1 applic topical BID Qty: 22 0RF vitamin B complex Capsule 1 cap PO DAILY atorvastatin [Lipitor] 20 mg tablet 20 mg PO QHS sumatriptan succinate 100 mg tablet 100 mg PO PRN PRN (Reason: MIGRAINES) topiramate [Topamax] 100 mg tablet 100 mg PO QHS insulin lispro [Humalog KwikPen Insulin] 100 unit/mL insulin pen 0 - 100 unit subcut TID Rx Instructions: 7 units today 07/31/22 lidocaine-prilocaine 2.5-2.5 % cream 1 applic topical ONCE PRN (Reason: PORT ACCESS) 30 Days Qty: 30 2RF Primary Care Provider: Jose Loving NP Referrals: Jose Loving OVER SHORT AND DAMAGE CLERK, OVER SHORT AND DAMAGE CLERK-C [Primary Care Provider] - As soon as possible Disposition Disposition: Home, Self Care What to do if you have Problems For any increased pain, shortness of breath, bleeding, nausea or vomiting, chestpain, or any unexpected problems, contact your Primary Care Provider. Call [facility] ([phone]) or report to the closest Emergency Room. Call 911 if necessary. 10/12/222 <Electronically signed by Tha Rodriguez MD> Cosigner Signature (if applicable): CC: OVER SHORT AND DAMAGE CLERK-C Jose Loving ~ Signed [facility] Work Phone: 1(192) 251-255805-04-[address] Deshpande [facility] July 31, 2022 9:35am Note Date/Time July 31, 2022 9:34am [facility] Medical Records Department [address] [place] [address] Instructions for Home/Discharge Instructions 07/31/22 0934 MR#: [id number] Acct: [id number] Name: ISABELLE NAGY Rep #:[id number] : 1980 42 From: Mary Jo Deshpande MD PCP: Jose Loving NP-C Status:REG PRC Discharge Instructions Procedure Port-A-Cath Diet Discharge Diet: Light diet - advance as tolerated Activity May shower in (days): 5 (Keep port site clean and dry x5 days. Neck incision okay to get wet after 1 day. Okay to lower shower and upper sponge bath. OR okay to taper off port site with a Ziploc bag to shower) Lifting Restrictions: No lifting > 15 pounds for 3 days with the arm on the sideof the port Dressing / Incision Call your doctor if your incision/area has: Continuous Slow Oozing, Sudden Increased Bleeding, Increased Pain/ Swelling, Increased Redness, Foul Smelling Discharge and Swelling at the incision site Call your doctor if you observe: Fever of 101 or Higher Change Dressing in: 2 days Follow Up Care Please Follow Up With: Mary Jo Deshpande MD When: In 10 days for permanent suture removal?call office for appointment Test Results: Test results from this visit will be discussed in further detail at your follow- up appointment, if applicable. Discharge Plan Admission Attending Provider: Mary Jo Deshpande Primary Care Provider: Jose Loving NP Discharge Orders/Prescriptions Prescriptions: Continued ondansetron 8 mg tablet,disintegrating 8 mg PO Q8H PRN (Reason: nausea and vomiting) Qty: 30 2RF dexamethasone 4 mg tablet 4 mg PO BID Qty: 6 5RF Rx Instructions: Take the day before, the day of and the day after chemotherapy multivitamin tablet 1 tab PO DAILY cetirizine [Zyrtec] 10 mg capsule 10 mg PO DAILY (DME) OneTouch Ultra Test Strip See Rx Instructions .ROUTE .MEDSUPPLY Qty: 100 3RF Rx Instructions: As directed (DME) pen needle, diabetic [BD Ultra-Fine Orig Pen Needle] 29 gauge x 1/2 needle See Dose Instructions .ROUTE .MEDSUPPLY Qty: 270 3RF Dose Instruction: As directed Rx Instructions: As directed for insulin injections valacyclovir 1 gram tablet 1,000 mg PO TID PRN (Reason: cod sore) 7 Days Qty: 21 12RF benzonatate 200 mg capsule 200 mg PO TID PRN (Reason: cough) Qty: 60 0RF fenofibrate nanocrystallized 145 mg tablet 145 mg PO DAILY Qty: 90 3RF Januvia 50 mg tablet 50 mg PO DAILY Qty: 90 3RF zolpidem 10 mg tablet 10 mg PO QHS PRN (Reason: insomnia) Qty: 30 5RF vitamin B complex Capsule 1 cap PO DAILY atorvastatin [Lipitor] 20 mg tablet 20 mg PO QHS sumatriptan succinate 100 mg tablet 100 mg PO PRN PRN (Reason: MIGRAINES) topiramate [Topamax] 100 mg tablet 100 mg PO QHS insulin lispro [Humalog KwikPen Insulin] 100 unit/mL insulin pen 0 - 100 unit subcut TID Rx Instructions: 7 units today 07/31/22 lidocaine-prilocaine 2.5-2.5 % cream 1 applic topical ONCE PRN (Reason: PORT ACCESS) 30 Days Qty: 30 2RF Referrals / Follow Up: Jose Loving NP, OVER SHORT AND DAMAGE CLERK-C [Primary Care Provider] - Disposition Disposition (needs filled in before D/C Order can be placed): Home, Self Care 07/31/22 0935<Electronically signed by Mary Jo Deshpande MD>Mary Jo Deshpande MD CC: OVER SHORT AND DAMAGE CLERK-C Jose Loving ~ Signed [facility] Work Phone: 1(461) 268-297705-04-2023 Procedure [facility] 07-31-2022 History and physical note Author Dr. Deshpande [facility] July 31, 2022 7:26am Note Date/Time July 31, 2022 7:26am [facility] Medical Records Department [address] [place] [address] History & Physical Exam 07/31/2225 MR#: [id number] Acct: [id number] Name: ISABELLE NAGY THOMAS Rep #:[id number] : 1980 42 From: Mary Jo Deshpande MD PCP: ZAC Gallardo Status:REG [facility] [place] Location: [place] [address] History and Physical Date of Admission: 07/31/22 Date of Service:? 07/24/22 MR#: [id number] Acct: [id number] Name:ISABELLE CAZARES Rep #: [id number] : 1980 ? ? Provider: Dr. Mary Jo Deshpande MD Age/Sex:? 42/F ? ? Location: [facility] Status: Signed Intake Vital Signs ? 07/15/2310:33 07/24/2308:22 Height 5 ft 2 in 5 ft 2 in Weight: ? 165 lb BMI ? 30.2 BP ? 133/89 H Blood Pressure Location ? Rt brachial Position ? Sitting Respiration ? 18 Pulse ? 75 Pulse Source ? Monitor Temp ? 97.4 F L Temp Source ? Temporal Pulse Oximetry (%) ? 100 Oxygen Delivery Method ? room air Intake Visit Reasons:?PORT PLACEMENT Chief Complaint: Port Placement Collar Worker Required: No Accompanied by: Is patient in pain?: No Allergies acetaminophen [From Vicodin] Allergy (Severe, Verified 07/24/22 09:26) rashcodeine Allergy (Severe, Verified 07/24/22 09:26) rashhydrocodone [From Vicodin] Allergy (Severe, Verified 07/24/22 09:26) rashPenicillins Allergy (Severe, Verified 07/24/22 09:26) rashpropoxyphene [From Darvocet-N] Allergy (Severe, Verified 07/24/22 09:26) rashcaffeine Adverse Reaction (Severe, Verified 07/24/22 09:26) migraine Medications cetirizine 10 mg capsule (Zyrtec) 10 mg PO DAILY 12/01/17 [History Confirmed 07/24/22] multivitamin 1 tab PO DAILY 12/01/17 [History Confirmed 07/24/22] blood sugar diagnostic (YOLLEGETouch Ultra Test strips) #100 ea 06/12/21 [Rx Confirmed 07/24/22] pen needle, diabetic 29 gauge x 1/2 (BD Ultra-Fine Original Pen Needle) #270 ea06/12/21 [Rx Confirmed 07/24/22] valacyclovir 1 gram tablet 1,000 mg PO TID PRN cod sore 7 days #21 tabs 06/12/21[Rx Confirmed 07/24/22] benzonatate 200 mg capsule 200 mg PO TID PRN cough #60 caps 02/24/22 [Rx Confirmed 07/24/22] atorvastatin 20 mg tablet (Lipitor) 20 mg PO DAILY #90 tabs 04/21/22 [Rx Confirmed 07/24/22] fenofibrate nanocrystallized 145 mg tablet 145 mg PO DAILY #90 tabs 04/21/22 [Rx Confirmed 07/24/22] glyburide 5 mg tablet 5 mg PO BID #180 tabs 04/21/22 [Rx Confirmed 07/24/22] sumatriptan succinate 100 mg tablet See Rx Instructions PO .COMPLEX #30 tabs 04/21/22 [Rx Confirmed 07/24/22] topiramate 100 mg tablet (Topamax) 100 mg PO DAILY #90 tabs 04/21/22 [Rx Confirmed 07/24/22] insulin lispro 100 unit/mL subcutaneous pen (Humalog KwikPen (U-100) Insulin) 100 unit subcut DAILY 90 days #90 mL 04/22/22 [Rx Confirmed 07/24/22] sitagliptin phosphate 50 mg tablet (Januvia) 50 mg PO DAILY #90 tabs 04/22/22 [Rx Confirmed 07/24/22] zolpidem 10 mg tablet 10 mg PO QHS PRN insomnia #30 tabs 06/02/22 [Rx Confirmed 07/24/22] lidocaine-prilocaine 2.5 %-2.5 % topical cream 1 applic topical ONCE PRN PORT ACCESS 30 days #30 grams 07/21/22 [Rx Confirmed 07/24/22] ondansetron 8 mg disintegrating tablet 8 mg PO Q8H PRN nausea and vomiting #30 tabs 07/21/22 [Rx Confirmed 07/24/22] dexamethasone 4 mg tablet 4 mg PO BID #6 tabs 07/22/22 [Rx Confirmed 07/24/22] PFSH Medical History?(Updated 07/25/22 @ 10:[address] Mary Jo Deshpande MD) Abnormal MRI ACL (anterior cruciate ligament) tear Adopted Carpal tunnel syndrome CINV (chemotherapy-induced nausea and vomiting) Cleft lip Diabetes type 2, uncontrolled Encounter for education Herpes simplex Hypercholesterolemia Invasive ductal carcinoma of right breast Migraines Mononucleosis Surgical History? Cleft palate and cleft lip Hx of tonsillectomy Social History? Smoking Status:? Former smoker how long ago did patient quit smoking:? cut back on smoking, now vaping as well second hand exposure:? No alcohol intake:? never substance use type:? does not use HPI HPI HPI: 42-year-old female with right invasive ductal breast carcinoma ER/AZ (weak to moderate) positive, HER2/gaviota positive presents to discuss port and also review MRI results.? Patient's MRI only shows the index lesion in the right breast at 5:00 does not call any abnormal lymph nodes.? Does see a possible hemangioma of the liver recommended a CT of the abdomen for further classification.? Patient states that genetics did call her and she was negative for testing and do not believe I have received those results yet.? Patient is planned to start her chemotherapy on August 04. ROS General General: No weight change, appetite, fatigue, colon cancer, breast cancer or weakness HEENT HEENT: No difficulty swallowing, eye injury, eye surgery, swollen glands or hoarseness Endo Endocrine: Yes diabetes mellitus; No thyroid disease, thyroid cancer, Hair loss, heat intolerance or cold intolerance Skin Skin: No rash or changing moles Breast Breast: Yes right breast lump, abnormal mammogram and abnormal US; No left breast lump, nipple discharge, breast pain or breast enlargement Musc Musculoskeletal: No back problems, arthritis, rheumatoid arthritis, gout or joint pain Cardio Cardiovascular: No murmur, pacemaker, heart disease, atrial fibrillation, high blood pressure, heart attack, heart stent, palpitations, shortness of breat withexertion or chest pain Psych Psychiatric: No depression, anxiety or hearing voices Resp Respiratory: No shortness of breath, No sleep apnea, No cough, No COPD, No asthma, No emphysema and No wheezing Gastro Gastrointestinal: No abdominal pain, No nausea or vomiting, No diarrhea, No constipation, No blood in stool, No acid reflux, No hemorrhoids, No ulcers, No gallbladder problem and No black,tarry stools Enrike Hematologic: No blood thinners, No blood disorders, No bleeding, No anemia and No blood clots Neuro Neurologic: No numbness and No weakness Exam Const General: cooperative, healthy appearing, comfortable and no acute distress Neck Neck: supple Chest Other: Palpation of upper chest bilaterally?normal. Resp Effort & Inspection: normal respiratory effort Cardio Rate: regular rate Assessment and Plan Assessment and Plan (1) Encounter for insertion of venous access port: ?Status:?Acute (2) Invasive ductal carcinoma of right breast: ?Status:?Acute (3) Liver hemangioma: ?Status:?Acute ? ? ? Orders: Orders Abdomen W/WO IV Contrast 07/24/22 D18.03 - Hemangioma of intra-ab dominal structures, R93.89 - Abnormal findings on diagnostic imaging of other specified body structures ? Plan We will order CT of the abdomen with liver protocol for better evaluation of possible hemangioma of the liver seen on breast MRI. I have discussed above with the patient- Port-a-Cath placement.? Left possible right. Patient has been counseled as to the risks/benefits of the procedure. I have explained the risks of the surgery, including but not limited to: infection, bleeding, injury to any blood vessels/nerves, injury to lungs (such as pneumothorax or hemothorax and need for chest tube), not having any access, nonfunctioning of port due to thrombosis, infection of port, etc.? the patient understands and agrees to proceed. I have answered all the patient's questions to the patient?s satisfaction and the patient has no further questions. Mary Jo Deshpande M.D. Pager: [phone] [facility] [address] [place] [address], [address] [place] [address] Office: [phone] Coding Level of Care Code Off vis,est,level 4 Diagnoses Encounter for insertion of venous access port? Z45.2 Invasive ductal carcinoma of right breast? C50.911 Liver hemangioma? D18.03 07/25/22 1009 <Electronically signed by Mary Jo Deshpande MD> Date Mary Jo Deshpande MD 07/31/22 0726 <Electronically signed by Mary Jo Deshpande MD> Cosigner Signature (if applicable): CC: ZAC Loving; Dr. Myrna Szymanski MD; Dr. Mary Jo Deshpande MD~ Signed ADDENDUM by Dr. Mary Jo Deshpande MD on 07/31/22 at 0726 Addendum I have examined the patient and the H&P has been reviewed. There are no clinicalchanges since date of exam. 07/31/22 07<Electronically signed by Mary Jo Deshpande MD> Cosigner Signature (if applicable): cc: ZAC Loving; Dr. Myrna Szymanski MD; Dr. Mary Jo Deshpande MD ~* Signed [facility] Work Phone: 1(774) 525-573504-04-2023 Procedure [facility] 06-25-2022 NoteHNO ID: [id number] Author: YANNICK Burt Service: Radiology Author Type: Technologist Type: Progress Notes Filed: 06/25/2022 3:30 PM Note Text: Radiology Service Progress Note PATIENT NAME: Isabelle Nagy DATE OF SERVICE: June 25, 2022 TIME: [...] BY: YANNICK Burt June 25, 2022 3:30 PMVan [facility] [id number] NoteHNO ID: [id number] Author: RT Roberto(R) Service: Radiology Author Type: Technologist Type: Progress Notes Filed: 06/25/2022 2:34 PM Note Text: Radiology Service Progress Note PATIENT NAME: Isabelle Nagy DATE OF SERVICE: June 25, 2022 TIME: [...] BY: RT Viji(R) June 25, 2022 2:33 PMVan [facility] [id number] History of Present illness Narrative* RT Roberto(R) - 06/25/2022 1:20 PM EDT Radiology Service Progress Note PATIENT NAME: Isabelle Nagy DATE OF SERVICE: June 25, 2022 TIME: 2:33 PM PATIENT IDENTITY VERIFICATION COMPLETED USING TWO (2) IDENTIFIERS: Name and Date of confirmedby patient verbally. FALL SCREENING: Has the patient [...] 25, 2022 2:33 PM [facility] NotePap Smear Specimen AdequacyFebruary 2022 8:51amComment.Satisfactory for evaluation. Endocervical and/or squamous metaplasticcells (endocervical component)are present.[facility] A#[id number] City HospitalCommcl[facility] [place] on above: Satisfactory for evaluation. Endocervical and/or squamous metaplasticcells (endocervical component)are present.05-08-2022 NotePap Smear Specimen Adequacy May 08, 2022 9:51amComment.Satisfactory for evaluation. Endocervical and/or squamous metaplasticcells (endocervical component)are present.[facility] A#[id number] City HospitalCommclaren [place] on above:Satisfactory for evaluation. Endocervical and/or squamous metaplasticcells (endocervical component)are present.05-08-2022 NotePap Smear Specimen AdequacyFebruary 2022 9:51amComment.Satisfactory for evaluation. Endocervical and/or squamous metaplasticcells (endocervical component)are present.[facility] A#[id number] City HospitalCommclaren [place] on above:Satisfactory for evaluation. Endocervical and/or squamous metaplasticcells (endocervical component)are present.05-08-2022 NotePap Smear Specimen AdequacyFebruary 2022 9:51amComment.Satisfactory for evaluation. Endocervical and/or squamous metaplasticcells (endocervical component)are present.[facility] A#[id number] City HospitalCommclaren [place] on above:Satisfactory for evaluation. Endocervical and/or squamous metaplasticcells (endocervical component)are present.05-08-2022 NotePap Smear Specimen AdequacyFebruary 2022 9:51amComment.Satisfactory for evaluation. Endocervical and/or squamous metaplasticcells (endocervical component)are present.[facility] A#[id number] City HospitalCommclaren [place] on above:Satisfactory for evaluation. Endocervical and/or squamous metaplasticcells (endocervical component)are present.05-08-2022 NotePap Smear Specimen AdequacyFebruary 2022 9:51amComment.Satisfactory for evaluation. Endocervical and/or squamous metaplasticcells (endocervical component)are present.[facility] A#[id number] City HospitalCommclaren [place] on above:Satisfactory for evaluation. Endocervical and/or squamous metaplasticcells (endocervical component)are present.05-08-2022 NotePap Smear Specimen AdequacyFebruary 2022 9:51amComment.Satisfactory for evaluation. Endocervical and/or squamous metaplasticcells (endocervical component)are present.[facility] A#[id number] City HospitalCommclaren [place] on above:Satisfactory for evaluation. 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 1 MONTH F/U POST RT BREAST 3 WEEK, NO LABS, TX COV, FLU, RSV PCR Bronchitis Cough follow-up 3 WEEK, NO LABS, HERCEPTIN CA Tx PAP exam Reason for Visit Status post right br east lumpectomy Invasive ductal carcinoma of right breast Status post chemotherapy Invasive ductal carcinoma of right breast Anemia Invasive ductal carcinoma of right breast Anemia Invasive ductal carcinoma of right breast Encounter for education Invasive ductal carcinoma of right breast Invasive ductal carcinoma of right breast Invasive ductal carcinoma of right breast Anemia Invasive ductal carcinoma of right breast Invasive ductal carcinoma of right breast Fatigue 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 Invasive ductal carcinoma of right breast Invasive ductal carcinoma of right breast 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 Bronchitis Invasive ductal carcinoma of right breast Abnormal uterine bleeding (AUB) HPV test positive Use of tamoxifen (Nolvadex) Invasive ductal carcinoma of right breast Routine gynecological examination [facility] Work Phone: Evaluation note* Diagnosis Acute nonintractable headache, unspecified headache type- Primary documented in this encounter [facility] Work Phone: Evaluation note* Diagnosis Onset Date Resolution Status Insomnia disorder acute Type 2 diabetes mellitus wit h features of insulin resistance acute Maxillary sinusitis acute Pharyngitis acute Type 2 diabetes mellitus wit h features of insulin resistance acute Fatigue acute Hyperlipidemia acute [id number] condition acut e Type 2 diabetes mellitus wit h features of insulin resistance acute [facility] Work Phone: Evaluation note* Diagnosis Onset Date Resolution Status Bilateral acute otitis media acute Bronchitis acute Hyperlipidemia acute Migraines acute Type 2 diabetes mellitus wit h features of insulin resistance acute [facility] Work Phone: Evaluation note* Diagnosis Breast disorder- Primary Unspecified breast disorder [facility] this encounter [facility] Diagnosis Onset Date Resolution Status Hyperlipidemia acute Migraines acute Type 2 diabetes mellitus wit h features of insulin resistance acute Bronchitis acute Maxillary sinusitis acute Right acute otitis media acu te Mass of right breast acute [facility] Work Phone: Evaluation note* Diagnosis Onset Date Resolution Status Hyperlipidemia acute Migraines acute Type 2 diabetes mellitus wit h features of insulin resistance acute Bronchitis acute Maxillary sinusitis acute Right acute otitis media acu te Invasive ductal carcinoma of right breast acute [facility] Work Phone: Evaluation note* Diagnosis Onset Date Resolution Status Hyperlipidemia acute Migraines acute Type 2 diabetes mellitus wit h features of insulin resistance acute Bronchitis acute Maxillary sinusitis acute Right acute otitis media acu te Invasive ductal carcinoma of right breast acute Encounter for education acut e Invasive ductal carcinoma of right breast acute Encounter for insertion of venous access port acute Invasive ductal carcinoma of right breast acute Liver hemangioma acute [facility] Work Phone: Evaluation note* Diagnosis Onset Date Resolution Status Hyperlipidemia acute Migraines acute Type 2 diabetes mellitus wit h features of insulin resistance acute Bronchitis acute Maxillary sinusitis acute Right acute otitis media acu te Invasive ductal carcinoma of right breast acute Encounter for education acut e Invasive ductal carcinoma of right breast acute Encounter for insertion of venous access port acute Invasive ductal carcinoma of right breast acute Liver hemangioma acute Encounter for chemotherapy management acute Encounter for monitoring cardiotoxic drug therapy acute Invasive ductal carcinoma of right breast acute Liver hemangioma acute [facility] Work Phone: Evaluation note* Diagnosis Onset Date Resolution Status Bronchitis acute Maxillary sinusitis acute Right acute otitis media acu te Invasive ductal carcinoma of right breast acute Encounter for education acut e Invasive ductal carcinoma of right breast acute Encounter for insertion of venous access port acute Invasive ductal carcinoma of right breast acute Liver hemangioma acute Encounter for chemotherapy management acute Encounter for monitoring cardiotoxic drug therapy acute Invasive ductal carcinoma of right breast acute Liver hemangioma acute Encounter for insertion of venous access port acute Encounter for chemotherapy management acute Encounter for monitoring cardiotoxic drug therapy acute Invasive ductal carcinoma of right breast acute Liver hemangioma acute Folliculitis acute Staphylococcal infection acu te [facility] Work Phone: Evaluation note* Diagnosis Onset Date Resolution Status 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 Encounter for education acut e 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 Encounter for insertion of venous access port acute Liver hemangioma acute 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 Encounter for chemotherapy management acute Encounter for monitoring cardiotoxic drug therapy acute Liver hemangioma acute 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 Encounter for insertion of venous access port acute Encounter for chemotherapy management acute Encounter for monitoring cardiotoxic drug therapy acute Liver hemangioma acute 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 Folliculitis acute Staphylococcal infection acu te Acute prerenal azotemia acut e Diarrhea due to drug acute Anemia chronic 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 Diarrhea due to drug acute Left ankle pain acute Anemia chronic 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 Acute prerenal azotemia acut e Diarrhea due to drug acute Anemia chronic 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 Acute prerenal azotemia acut e Diarrhea due to drug acute Encounter for chemotherapy management acute Anemia chronic 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 [facility] Work Phone: Evaluation note* Diagnosis Onset Date Resolution Status Encounter for chemotherapy management acute Encounter for monitoring cardiotoxic drug therapy acute Liver hemangioma acute 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 Folliculitis acute Staphylococcal infection acu te Acute prerenal azotemia acut e Diarrhea due to drug acute Anemia chronic 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 Diarrhea due to drug acute Left ankle pain acute Anemia chronic 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 Acute prerenal azotemia acut e Diarrhea due to drug acute Anemia chronic 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 Acute prerenal azotemia acut e Diarrhea due to drug acute Encounter for chemotherapy management acute Anemia chronic 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 Folliculitis acute Staphylococcal infection acu te Type 2 diabetes mellitus wit h features of insulin resistance acute Acute prerenal azotemia acut e Diarrhea due to drug acute Anemia chronic 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 Acute prerenal azotemia acut e Diarrhea due to drug acute Anemia chronic 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 Diarrhea due to drug acute Anemia chronic 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 C. difficile diarrhea acute Diabetes type 1, controlled acute Insomnia disorder acute [facility] Work Phone: Evaluation note* Diagnosis Onset Date Resolution Status Diabetes type 1, controlled acute Insomnia disorder acute C. difficile diarrhea resolv ed 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 Status post chemotherapy res olved Status post right breast lumpectomy acute 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 Status post chemotherapy res olved Anemia chronic 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 Fatigue acute Hyperlipidemia acute Insomnia disorder acute Type 2 diabetes mellitus wit h features of insulin resistance acute Anemia chronic Status post right breast lumpectomy acute 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 Status post chemotherapy res olved 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 Anemia chronic 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 Anemia chronic 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 Encounter for education reso lved 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 Anemia chronic 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 [facility] Work Phone: Evaluation note* Diagnosis Onset Date Resolution Status Status post right breast lumpectomy acute 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 Status post chemotherapy res olved Anemia chronic 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 Fatigue acute Hyperlipidemia acute Insomnia disorder acute Type 2 diabetes mellitus wit h features of insulin resistance acute Anemia chronic Status post right breast lumpectomy acute 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 Status post chemotherapy res olved 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 Anemia chronic 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 Anemia chronic 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 Encounter for education reso lved 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 Anemia chronic 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 Fatigue acute Type 2 diabetes mellitus wit h features of insulin resistance acute 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 [facility] Work Phone: Evaluation note* Diagnosis Onset Date Resolution Status Status post right breast lumpectomy acute 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 Status post chemotherapy res olved Anemia chronic 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 Fatigue acute Hyperlipidemia acute Insomnia disorder acute Type 2 diabetes mellitus wit h features of insulin resistance acute Anemia chronic Status post right breast lumpectomy acute 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 Status post chemotherapy res olved 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 Anemia chronic 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 Anemia chronic 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 Encounter for education reso lved 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 Anemia chronic 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 Fatigue acute Type 2 diabetes mellitus wit h features of insulin resistance acute 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 Body aches acute Cough acute 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 Maxillary sinusitis, acute a cute Type 2 diabetes mellitus wit h features of insulin resistance acute Bronchitis resolved [facility] Work Phone: Evaluation note* Diagnosis Onset Date Resolution Status Status post right breast lumpectomy acute 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 Status post chemotherapy res olved 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 Anemia chronic 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 Anemia chronic 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 Encounter for education reso lved 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 Anemia chronic 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 Fatigue acute Type 2 diabetes mellitus wit h features of insulin resistance acute 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 Type 2 diabetes mellitus wit h features of insulin resistance acute Bronchitis resolved 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 Abnormal uterine bleeding (AUB) acute HPV test positive acute Use of tamoxifen (Nolvadex) acute 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 Routine gynecological examination noneactive [facility] Work Phone: Evaluation note* Diagnosis Onset Date Resolution Status 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 Fatigue acute Type 2 diabetes mellitus wit h features of insulin resistance acute 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 Type 2 diabetes mellitus wit h features of insulin resistance acute Bronchitis resolved 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 Abnormal uterine bleeding (AUB) acute HPV test positive acute Use of tamoxifen (Nolvadex) acute 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 Routine gynecological examination noneactive 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 Hyperlipidemia acute Type 2 diabetes mellitus wit h features of insulin resistance acute Fatigue acute 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 [facility] Work Phone: Evaluation note* Diagnosis Onset Date Resolution Status Fatigue acute Type 2 diabetes mellitus wit h features of insulin resistance acute 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 Type 2 diabetes mellitus wit h features of insulin resistance acute Bronchitis resolved 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 Abnormal uterine bleeding (AUB) acute HPV test positive acute Use of tamoxifen (Nolvadex) acute 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 Routine gynecological examination noneactive 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 Hyperlipidemia acute Type 2 diabetes mellitus wit h features of insulin resistance acute Fatigue acute 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 Abnormal uterine bleeding (AUB) acute Ovarian cyst acute Thickened endometrium acute Use of tamoxifen (Nolvadex) acute [facility] Work Phone: Evaluation note* Diagnosis Onset Date Resolution Status Fatigue acute Type 2 diabetes mellitus wit h features of insulin resistance acute 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 Type 2 diabetes mellitus wit h features of insulin resistance acute Bronchitis resolved 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 Abnormal uterine bleeding (AUB) acute HPV test positive acute Use of tamoxifen (Nolvadex) acute 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 Routine gynecological examination noneactive 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 Hyperlipidemia acute Type 2 diabetes mellitus wit h features of insulin resistance acute Fatigue acute 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 Abnormal uterine bleeding (AUB) acute Ovarian cyst acute Thickened endometrium acute Use of tamoxifen (Nolvadex) acute 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 [facility] Work Phone: Hospital Discharge instructions* Attachments The following attachments cannot be sent through Care Everywhere. * Headache (Ecuadorean) [facility]: Hospital Discharge instructions Additional Instructions Cardiac workup negative D-dimer negative CTA chest negative. Call Dr. Moon's office for further testing. If you develop worsening symptoms, return to the ED for reevaluation. [facility] Work Phone: Hospital Discharge instructionsAmbulatory Orders* Dermatology Location: None [facility] Work Phone: Progress note Author Mary Jo Deshpande [facility] Services Note Date/Time December 23, 2024 9:00am [facility] [address] [place] [address]. [address] [place] [address] OFFICE VISIT Date of Service: 12/23/24 MR#: [id number] Acct: [id number] Name: ISABELLE NAGY THOMAS Rep #: [id number] : 1980 Provider: Dr. John Deshpande MD Age/Sex: 44/F Location: [facility] Status: Signed Intake Vital Signs 12/05/24 15:49 12/23/24 08:26 Height 5 ft 3 in 5 ft 3 in Weight: 138 lb BMI 24.4 BP 102/69 Blood Pressure Location Rt brachial Position Sitting Respiration 17 Pulse 86 Pulse Source Monitor Pulse Oximetry (%) 100 Oxygen Delivery Method room air Intake Visit Reasons: SELF REFERRED- DIARRHEA MULTIPLE WEEKS Chief Complaint: self referred, diarrhea Is patient in pain?: No Allergies codeine Allergy (Severe, Verified 12/23/24 08:27) rash hydrocodone (From Vicodin) Allergy (Severe, Verified 12/23/24 08:27) rash Penicillins Allergy (Severe, Verified 12/23/24 08:27) rash propoxyphene (From Darvocet-N) Allergy (Severe, Verified 12/23/24 08:27) rash caffeine Adverse Reaction (Severe, Verified 12/23/24 08:27) migraine trazodone Adverse Reaction (Severe, Verified 12/23/24 08:27) made feel weird Medications ?Medication ?Instructions ?Recorded ?Confirmed ?Type multivitamin 1 tab PO DAILY 12/01/1711/29 History sumatriptan succinate 100 mg tablet 100 mg PO PRN PRN MIGRAINES 07/28/22 12/23/24 History blood sugar diagnostic (OneTouch #100 ea 06/12/2311/29 Rx Ultra Test strips) pen needle, diabetic 29 gauge x #270 ea 06/12/2312/23 Rx / (BD Ultra-Fine Original Pen Needle) benzonatate 200 mg capsule 200 mg PO TID PRN cough #60 caps 12/30/23 12/23/24 Rx calcium 600 mg (as 1 tab PO DAILY 01/26/2411/29 History carbonate)-vitamin D3 5 mcg (200 unit) tablet atorvastatin 20 mg tablet 20 mg PO QDAY 06/06/2412/23 History loratadine 10 mg tablet (Claritin) 10 mg PO DAILY PRN 06/06/24 12/23/24 History antiarthritic combination no.2 900 600 mg PO 06/22/24 12/23/24 History mg tablet (glucosamine-chondroitin) biotin 10,000 mcg capsule mcg PO 06/22/24 12/23/24 His tory insulin aspart U-100 100 unit/mL 100 unit subcut USEAS DIRECTD 90 06/22/24 12/23/24 Rx (3 mL) subcutaneous pen (Novolog days #90 mL FlexPen U-100 Insulin aspart) triamcinolone acetonide 0.5 % 1 applic topical TID PRN 09/15/24 12/23/24 History topical cream glyburide 5 mg tablet 10 mg PO QDAY 12/05/2412/23 History topiramate 100 mg tablet 100 mg PO QDAY #90 tabs 09/0 11/2112/23/24 Rx valacyclovir 1 gram tablet 1,000 mg PO TID PRN cod sor e 7 12/05/24 12/23/24 Rx days #21 tabs zolpidem 10 mg tablet 10 mg PO QHS insomnia #30 ta bs 12/05/24 12/23/24 Rx tirzepatide 15 mg/0.5 mL 15 mg (0.5 mL) subcut QWEEK #2 mL 12/19/24 12/23/24 Rx subcutaneous pen injector (Emilee) [facility] Medical History (Reviewed 12/06/24 @ 13:36 by Jose Loving OVER SHORT AND DAMAGE CLERK, OVER SHORT AND DAMAGE CLERK-C) History of breast cancer Chronic kidney disease History of renal disease Bone pain Screening for osteoporosis Visit for pelvic exam Well adult exam History of Clostridium difficile infection History of echocardiogram C. difficile diarrhea Hypokalemia Left ankle pain Anemia Encounter for chemotherapy management Encounter for monitoring cardiotoxic drug therapy Wears glasses Cancer Anxiety Insulin dependent diabetes mellitus Back pain Dietary restriction Former smoker Shortness of breath on exertion Hx of tear of ACL (anterior cruciate ligament) Liver hemangioma Encounter for insertion of venous access port Abnormal MRI Encounter for education CINV (chemotherapy-induced nausea and vomiting) Invasive ductal carcinoma of right breast Migraines Adopted Cleft lip Herpes simplex Hypercholesterolemia Surgical History Hx of hysterectomy S/P CECILE-BSO History of lumpectomy of right breast Status post right breast lumpectomy Hx of surgical procedure Hx of nasal septoplasty Hx of tonsillectomy Cleft palate and cleft lip Family History Other Adopted Social History Smoking Status: Former smoker second hand exposure: No alcohol intake: never substance use type: does not use additional social history: Boyfriend-Bhupendra HPI HPI HPI: 44-year-old female presents due to 4-week history of diarrhea. Patient states she will go typically between 1-3 times daily denies any blood. Patient denies any change with food.. Patient was previously having more normal bowel movements. Patient did have C. difficile diagnosed previously while she was getting chemotherapy in . Patient denies any reflux symptoms or abdominal pain. Except for she has noticed since her right lumpectomy she has had 5 episodes of sharp pain when bending down and looking which seems to be notat the breast more underneath the ribs. Does resolve on its own-related to movement not food. ROS General General: Yes weight change, fatigue and breast cancer; No appetite, colon cancer or weakness Additional Details: loss intentional HEENT HEENT: No difficulty swallowing, eye injury, eye surgery, swollen glands or hoarseness Endo Endocrine: Yes diabetes mellitus; No thyroid disease, thyroid cancer, Hair loss, heat intolerance or cold intolerance Skin Skin: No rash or changing moles Musc Musculoskeletal: Yes back problems and arthritis; No rheumatoid arthritis, gout or joint pain Cardio Cardiovascular: No murmur, pacemaker, heart disease, atrial fibrillation, high blood pressure, heart attack, heart stent, palpitations, shortness of breath with exertion or chest pain Psych Psychiatric: No depression, anxiety or hearing voices Resp Respiratory: No shortness of breath, No sleep apnea, No cough, No COPD, No asthma, No emphysema and No wheezing Gastro Gastrointestinal: No abdominal pain, No nausea or vomiting, Yes diarrhea, No constipation, No blood in stool, No acid reflux, No hemorrhoids, No ulcers, No gallbladder problem and No black,tarry stools Enrike Hematologic: No blood thinners, No blood disorders, No bleeding, No anemia and No blood clots Neuro Neurologic: No numbness and No weakness Exam Const General: cooperative, healthy appearing, comfortable and no acute distress [facility] Head: normocephalic and atraumatic Neck Neck: supple Resp Effort & Inspection: normal respiratory effort Cardio Rate: regular rate GI Inspection: non-distended Palpation: soft and nontender Skin General: no rashes or lesions noted Neuro General: CN's II-XI intact bilaterally Extrem General: normal to inspection Psych Mental Status: mental status grossly normal Attitude: cooperative Assessment and Plan Assessment and Plan (1) Diarrhea: Status: Inactive Plan Will plan to get stool studies as well as do random biopsies at time of colonoscopy. Patient agreeable with plan. Patient prefers colonoscopy . I have discussed the above with the patient. I have offered the patient colonoscopy for evaluation. I have explained the risks/benefits of the procedure and described the procedure. I have discussed the risks with the patient, including but not limited to: infection, bleeding, perforation of the GI tract requiring emergency surgery, inability to complete the procedure, injury to any internal organs, complications of anesthesia, etc. - the patient understands and agrees to proceed. I have answered all the patient's questions to the patient's satisfaction and the patient has no further questions. The patient has been given instructions for the colon cleansing preparation. 1 day clears MiraLAX Dulcolax prep Mary Jo Deshpande M.D. Pager: [phone] [facility] [address] [place] [address], [address] [place] [address] Office: [phone] Coding Level of Care Code Off vis,est,level 3 Diagnoses Diarrhea R19.7 12/23/24 1303 <Electronically signed by Mary Jo Ratliff am, MD> Date _ Mary Jo Deshpande MD Cosigner Signature: Date (if applicable) CC: ZAC Loving ~ [facility] Work Phone: Progress note Author Myrna Szymanski [facility] Note Date/Time December 29, 2024 10 :22am [facility] [address] [address] OFFICE VISIT Date of Service: 12/29/24 0950 MR#: [id number] Acct: [id number] Name: ISABELLE NAGY THOMAS Rep #: [id number] : 1980 From: Myrna bejarano MD Age/Sex: 44/F Location: [facility] Status: Signed HPI Subjective Date of Service 12/29/24 Chief Complaint breast cancer on treatment History of Present Illness 44-year-old female, premenopausal at presentation following an abnormal screening mammogram. June 25, 2022 mammogram: 1.9 cm irregular focal asymmetry in the right breast and a second 0.9 cm focal asymmetry at 5:00. June 25, 2022 right breast and axilla ultrasound: 1.9 cm in maximum diameter irregular solid mass in the right breast at 5:00 posterior depth highly suggestive of malignancy in addition to a 1 cm lesion at 5:00 in the retroareolar region. No significant abnormalities were seen in the right axilla. July 01, 2022: A. Right breast at 5 o?clock, 3 cm, biopsy: Mild fibrocystic change. No evidence of malignancy. B. Right breast at 5 o?clock, 7 cm, biopsy: Invasive ductal carcinoma with the follow characteristics: Nuclear grade - 2-3 Maximal length - 10 millimeters ANTIBODY / CLONE RESULT Block B P53 (DO-7) positive, 80% Ki-67 (30-9) positive, 90% CK8 ([id number]) positive CK5-6 (D5 & 1684) negative Calponin-1 (II730S) negative P40 (BC28) negative E-Cad (ECH-6) positive SULLIVAN-2 (SP21) positive MORPHOMETRIC ANALYSIS ER (clone 6F11) 65%, weak to moderate intensity AZ (clone 16/1E2) 45%, weak to moderate intensity Her-2Neu (clone CB11) 3+ December 25, 2022 right breast lumpectomy with sentinel lymph node biopsy: FROZEN SECTION DIAGNOSIS A. Right sentinel lymph nodes, biopsy: Two out of two lymph nodes, negative for metastatic carcinoma. SJ:sahra 12/25/2022 MICROSCOPIC DIAGNOSIS A. Right sentinel lymph nodes, biopsy: Two out of two lymph nodes, negative for metastatic carcinoma. See comment. B. Right breast mass, lumpectomy with needle localization: No evidence of residual carcinoma. Changes consistent with previous biopsy site. January 11, 2025 BNM/Bone Scan Whole Body (requested to address reports of persistent pain involving bilat forearms) IMPRESSION: 1. The increase in radiopharmaceutical concentration defined in the bilateral shoulders, the knees bilaterally, the fourth lumbar vertebra is most consistent with degenerative arthritis. 2. There is no definitive typical scintigraphic evidence of skeletal metastatic disease Treatment summary and response: * Neoadjuvant TCHP August 04, 2022?November 17, 2022 (6 cycles): Complete pathologic remission * Herceptin maintenance December 2022?August 2023 (concluded at 1 year) * Tamoxifen February 2023-July 2024; stopped because of joint pains, nonetheless the joint pains did not resolve after she stopped treatment * Adjuvant radiation therapy to the right breast consisting of 4000 cGy delivered to the entire breast and 4800 cGy delivered to the lumpectomy cavity all in 15 fractions with a simultaneous integrated boost technique. She was treated using a 3D conformal treatment plan with 10 MV photons. Date of First Treatment: 02/09/2023 Date of Last Treatment: 03/02/2023 [facility] Medical History History of breast cancer Chronic kidney disease History of renal disease Bone pain Screening for osteoporosis Visit for pelvic exam Well adult exam History of Clostridium difficile infection History of echocardiogram C. difficile diarrhea Hypokalemia Left ankle pain Anemia Encounter for chemotherapy management Encounter for monitoring cardiotoxic drug therapy Wears glasses Cancer Anxiety Insulin dependent diabetes mellitus Back pain Dietary restriction Former smoker Shortness of breath on exertion Hx of tear of ACL (anterior cruciate ligament) Liver hemangioma Encounter for insertion of venous access port Abnormal MRI Encounter for education CINV (chemotherapy-induced nausea and vomiting) Invasive ductal carcinoma of right breast Migraines Adopted Cleft lip Herpes simplex Hypercholesterolemia Surgical History Hx of hysterectomy S/P CECILE-BSO History of lumpectomy of right breast Status post right breast lumpectomy Hx of surgical procedure Hx of nasal septoplasty Hx of tonsillectomy Cleft palate and cleft lip Family History Other Adopted Social History Smoking Status: Former smoker second hand exposure: No alcohol intake: never substance use type: does not use additional social history: Boyfriend-Bhupendra TSANG Constitutional Constitutional: Reports systems reviewed and no addt'l complaints, except as documented, weight loss and other Details: Active and prescription treatment weight loss ; Denies anorexia, fever(s) or night sweats Eyes Eyes: Reports systems reviewed and no addt'l complaints, except as documented; Denies change in vision ENT HEENT: Reports systems reviewed and no addt'l complaints, except as documented Cardiovascular Cardiovascular: Reports systems reviewed and no addt'l complaints, except as documented; Denies chest pain with activity or edema Respiratory/Chest Respiratory/Chest: Reports systems reviewed and no addt'l complaints, except as documented; Denies cough, dyspnea on exertion or hemoptysis Gastrointestinal Gastrointestinal: Reports systems reviewed and no addt'l complaints, except as documented and diarrhea; Denies change in bowel habits, hematochezia or melena Genitourinary Genitourinary: Reports systems reviewed and no addt'l complaints, except as documented; Denies hematuria Musculoskeletal Musculoskeletal: Reports systems reviewed and no addt'l complaints, except as documented and arthralgias; Denies back pain Integumentary Integumentary: Denies new lesions or rash Neurologic Neurologic: Reports systems reviewed and no addt'l complaints, except as documented; Denies focal weakness or paresthesias Psychiatric Psychiatric: Reports systems reviewed and no addt'l complaints, except as documented Endocrine Endocrinology: Reports systems reviewed and no addt'l complaints, except as documented Hematologic/Lymphatic Hematologic/Lymphatic: Reports systems reviewed and no addt'l complaints, exceptas documented; Denies lymphadenopathy Allergic/Immunologic Allergic/Immunologic: Reports systems reviewed and no addt'l complaints, except as documented Intake Vital Signs 09/15/24 10:00 12/23/24 08:26 12/29/24 09:51 12/29/24 10:00 Height 5 ft 3 in 5 ft 3 in 5 ft 3 in 5 ft 3 in Weight: 62.142 kg BMI 24.3 BP 96/66 Blood Pressure Location Lt brachial Position Sitting Respiration 18 Pulse 89 Pulse Source Monitor Temp 96.6 F L Temperature Source Temporal Artery Pulse Oximetry (%) 99 Oxygen Delivery Method room air Intake Allergies codeine Allergy (Severe, Verified 12/23/24 08:27) rash hydrocodone (From Vicodin) Allergy (Severe, Verified 12/23/24 08:27) rash Penicillins Allergy (Severe, Verified 12/23/24 08:27) rash propoxyphene (From Darvocet-N) Allergy (Severe, Verified 12/23/24 08:27) rash caffeine Adverse Reaction (Severe, Verified 12/23/24 08:27) migraine trazodone Adverse Reaction (Severe, Verified 12/23/24 08:27) made feel weird Medications ?Medication ?Instructions ?Recorded ?Confirmed ?Type multivitamin 1 tab PO DAILY 12/01/1705/24 History sumatriptan succinate 100 mg tablet 100 mg PO PRN PRN MIGRAINES 07/28/22 12/29/24 History blood sugar diagnostic (OneTouch #100 ea 06/12/2305/24 Rx Ultra Test strips) pen needle, diabetic 29 gauge x #270 ea 06/12/2312/29 Rx 1/2 (BD Ultra-Fine Original Pen Needle) benzonatate 200 mg capsule 200 mg PO TID PRN cough #60 caps 12/30/23 12/29/24 Rx calcium 600 mg (as 1 tab PO DAILY 01/26/2405/24 History carbonate)-vitamin D3 5 mcg (200 unit) tablet atorvastatin 20 mg tablet 20 mg PO QDAY 06/06/2412/29 History loratadine 10 mg tablet (Claritin) 10 mg PO DAILY PRN 06/06/24 12/29/24 History antiarthritic combination no.2 900 600 mg PO 06/22/24 12/29/24 History mg tablet (glucosamine-chondroitin) biotin 10,000 mcg capsule mcg PO 06/22/24 12/29/24 His tory insulin aspart U-100 100 unit/mL 100 unit subcut USEAS DIRECTD 90 06/22/24 12/29/24 Rx (3 mL) subcutaneous pen (Novolog days #90 mL FlexPen U-100 Insulin aspart) triamcinolone acetonide 0.5 % 1 applic topical TID PRN 09/15/24 12/29/24 History topical cream glyburide 5 mg tablet 10 mg PO QDAY 12/05/2412/29 History topiramate 100 mg tablet 100 mg PO QDAY #90 tabs 11/2112/29/24 Rx valacyclovir 1 gram tablet 1,000 mg PO TID PRN cod sor e 7 12/05/24 12/29/24 Rx days #21 tabs zolpidem 10 mg tablet 10 mg PO QHS insomnia #30 ta bs 12/05/24 12/29/24 Rx tirzepatide 15 mg/0.5 mL 15 mg (0.5 mL) subcut QWEEK #2 mL 12/19/24 12/29/24 Rx subcutaneous pen injector (Mounjaro) ferrous sulfate 325 mg (65 mg 325 mg PO QDAY 12/29/24 12/29/24 History iron) tablet (Feosol) Have you fallen in the past year?: No Central Venous Access Central Venous Access: No CBC, CMP December 29, 2024 reviewed in EMR Screening mammography July 11, 2024 reviewed in EMR OVERALL FINAL ASSESSMENT: BIRADS 1 NEGATIVE RECOMMENDATION: Routine annual follow-up in 1 Year Exam Physical Exam Narrative ECOG 0 Const alert, oriented x3 and no apparent distress General Appearance: cooperative and comfortable HEENT normocephalic Face and Sinus: normal facial exam Mouth: oral and palatal mucosa normal Eyes General Eye: normal appearance of both eyes Neck no lymphadenopathy and no JVD Resp clear to auscultation bilaterally Cardio regular rate and regular rhythm Jugular Venous Distention: Negative for JVD GI soft to palpation, non-tender and non-distended; Negative for hepatosplenomegaly Back/Spine no thoracic nor lumbar tenderness Extremity no clubbing, cyanosis or edema Skin Skin Narrative: Folliculitis involving 1 hair follicle overlying the right upper breast. Rashes: no rashes Neuro oriented x3, CN's II-XII intact bilaterally and moves all extremities Coordination / Balance: [id number] test normal Speech: speech normal Gait (Neuro): normal gait Psych mental status grossly normal Coding Level of Care Code Off vis,est,level 4 Exam Problem Focused Diagnoses Invasive ductal carcinoma of right breast C50.911 Assessment and Plan Assessment and Plan (1) Invasive ductal carcinoma of right breast: Status: Chronic Plan 43-year-old female premenopausal at diagnosis with invasive ductal cancer of theright breast clinical stage I (T1c, N0, M0); cancer is ER positive (65%, weak tomoderate) [place] positive (45%, weak to moderate) HER2/gaviota overexpressed 3+, Ki67 +90%. Patient is G0, P0 does not intend having any children and was adopted with no known family history. Genetic testing at [facility] showed no known deleterious mutation. Received 6 cycles of neoadjuvant systemic therapy with TCHP July?October. Main toxicity noted is acute diarrhea and prerenal azotemia, all resolved after completion of treatment. She has some paresthesias in the right foot but she isalso diabetic. November 2022 underwent right breast lumpectomy with sentinel lymph node biopsyand was found to be in complete pathologic response. Concluded 1 year of adjuvant Herceptin August 2023. Started adjuvant hormonal therapy with tamoxifen January 2023, stopped July 2024due to musculoskeletal complaints; these musculoskeletal pains did not resolvenonetheless after discontinuation of hormonal therapy. Of note she had a bone scan in December 2023 showing no evidence for bony metastatic disease. Underwent laparoscopic robotic hysterectomy bilateral salpingectomy and oophorectomies January 2024 Chronic comorbid conditions: Diabetes, dyslipidemia, migraine headache and degenerative joint disease. Plan: Based on NCCN guidelines and up-to-date review of treatment of early stagehormone receptor positive HER2/gaviota positive invasive ductal cancer with intent to cure: 1. Discussed resuming adjuvant hormonal therapy with tamoxifen since musculoskeletal pains are not proven side effect of this treatment and the fact that her musculoskeletal pains did not resolve after discontinuation but she didnot consent. She was also offered adjuvant hormonal therapy with an aromatase inhibitor though this has been proven to cause worsening musculoskeletal pains she also declined. 2. Bone density February 2023 was normal, due follow-up in 2 years to discuss with PCP postmenopausal bone loss since she is no longer on hormonal therapy forbreast cancer. 3. Screening mammography up-to-date June 2024. 4. Follow-up in 6 months. Patient was seen . Impression and plan as above outlined discussed Myrna Szymanski MD Beauty Shop Manager, [facility] Divisions of Medical Oncology & Hematology Department of Internal Medicine [facility] [place] [id number] This note was generated using a voice recognition system software. Although itwas reviewed by the author prior to finalization, it may still contain incorrectwords, spelling, and punctuation that were not noted when reviewing prior to saving. If a clinically significant typo or inaccurately typed phrase is noted, please notify the author. Clinical Quality Measures Falls Risk Screening/Assistive Devices Have you fallen in the past year?: No 12/29/24 1022 <Electronically signed by Myrna benítez MD> Date _ Myrna Aleman Signature: Date (if applicable) CC: ZAC Loving ~ [employer] Work Phone: Reason for referral (narrative)* Diagnostic Procedure Only (Routine) - Pending Review Specialty Diagnoses / Procedures Referred By Contac t Referred To Contact [facility] Diagnoses Breast disorder Procedures US BIOPSY BREAST RIGHT BX BREAST W/DEVICE 1ST LESION ULTRASOUND Reece Mckeon MD [address] [place] [address] [facility] [address] [place] [address] Referral ID Status Reason Start Date Expiration Date Visits Requested Visits Authorized [id number] Pending Review Auto-Generat ed Referral 06/25/2022 07/25/2023 1 1 [facility] Summary Purpose Family History No Family History Records Found Relationship Condition Age at Onset Recorded Date/T arnulfo Not Specified Adopted Unknown Advance Directives No Advanced Directives Records Found Advance Directive Response Recorded Date/ Time Living Will No July 28, 2022 3: 34pm Power of Branch Store Manager No July 28, 2022 3:34pm Advance Directive Response Recorded Date/ Time Advance Directives on File No August 052022 3:39pm Advance Directives No August 05, 2022 3:39pm Living Will No August 05, 2022 3: 39pm Power of Branch Store Manager No August 05, 2022 3:39pm Advance Directive Response Recorded Date/ Time Advance Directives on File No October 07, 2022 3:55pm Advance Directives No October 07 3:55pm Living Will No October 12, 2022 2:16pm Power of Branch Store Manager No October 12 2:16pm Advance Directive Response Recorded Date/ Time Advance Directives on File No Aug t 2022 4:13pm Advance Directives No November 18, 2022 4:13pm Living Will No November 18 4:13pm Power of Branch Store Manager No November 18, 2 023 4:13pm Advance Directive Response Recorded Date/ Time Advance Directives on File No [place] 2022 1:00pm Advance Directives No February 1:00pm Living Will No March 25, 2 023 1:00pm Power of Branch Store Manager No March 25, 2023 1:00pm Advance Directive Response Recorded Date/ Time Advance Directives on File No Febru 2023 10:04am Advance Directives No May 07, 2023 10:04am Living Will No May 07 10:04am Power of Branch Store Manager No May 07, 2023 10:04am Advance Directive Response Recorded Date/ Time Advance Directives on File No July 09, 2023 10:06am Advance Directives No July 08, 2 024 10:06am Living Will No July 09, 2023 10:06am Power of Branch Store Manager No July 08 10:06am Advance Directive Response Recorded Date/ Time Advance Directives on File No July 292023 8:35am Advance Directives No July 30, 2023 8:35am Living Will No July 30, 2023 8: 35am Power of Branch Store Manager No July 30, 2023 8:35am Advance Directive Response Recorded Date/ Time Living Will No September 10, 2023 9:46am Do you have a Healthcare Power of Branch Store Manager? No September 10, 2023 9:46am Living Will No June 26, 2024 4:52pm Do you have a Healthcare Power of Branch Store Manager? No June 26, 2024 4:52pm Advance Directives No September 09 9:46am Advance Directive Response Recorded Date/ Time Advance Directives on File No September 10, 2023 9:46am Living Will No September 10, 2023 9:46am Do you have a Healthcare Power of Branch Store Manager? No September 10, 2023 9:46am Advance Directives No September 09 9:46am Living Will No June 26, 2024 4:52pm Do you have a Healthcare Power of Branch Store Manager? No June 26, 2024 4:52pm Advance Directive Response Recorded Date/ Time Advance Directives on File No September 10, 2023 9:46am Living Will No September 10, 2023 9:46am Do you have a Healthcare Power of Branch Store Manager? 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 Chief Complaint cough body pain wilman estion medication refills Reason for Visit Bilateral acute otit is media Bronchitis Hyperlipidemia Migraines 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 Chief Complaint medication refills Bronchitits BIRADS 5 BREAST MASS X2 BREAST MASS X2 Reason for Visit Hyperlipidemia Migraines 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 Bronchitis Maxillary sinusitis Right acute otitis media Mass of right breast Chief Complaint medication refills Bronchitits BIRADS 5 BREAST MASS X2 BREAST MASS X2 NEW-BREAST CA RT BREAST MASS X2; INVASIVE DUCTAL CARCINOMA Reason for Visit Hyperlipidemia Migraines 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 Bronchitis Maxillary sinusitis Right acute otitis media Invasive ductal carcinoma of right breast Chief Complaint medication refills Bronchitits BIRADS 5 BREAST MASS X2 BREAST MASS X2 NEW-BREAST CA RT BREAST MASS X2; INVASIVE DUCTAL CARCINOMA 2WKS LABS NEW START CHEMO ED PORT PLACEMENT FITTER UP MED USE lt poss rt ij port lt poss rt ij port Reason for Visit Hyperlipidemia Migraines 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 Bronchitis Maxillary sinusitis Right acute otitis media Invasive ductal carcinoma of right breast Encounter for education Invasive ductal carcinoma of right breast Encounter for insertion of venous access port Invasive ductal carcinoma of right breast Liver hemangioma Chief Complaint medication refills Bronchitits BIRADS 5 BREAST MASS X2 BREAST MASS X2 NEW-BREAST CA RT BREAST MASS X2; INVASIVE DUCTAL CARCINOMA CHEMO ED PORT PLACEMENT FITTER UP MED USE lt poss rt ij port lt poss rt ij port 2WKS LABS NEW START 2WKS LABS NEW START Reason for Visit Hyperlipidemia Migraines 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 Bronchitis Maxillary sinusitis Right acute otitis media Invasive ductal carcinoma of right breast Encounter for education Invasive ductal carcinoma of right breast Encounter for insertion of venous access port Invasive ductal carcinoma of right breast Liver hemangioma Chief Complaint medication refills Bronchitits BIRADS 5 BREAST MASS X2 BREAST MASS X2 NEW-BREAST CA RT BREAST MASS X2; INVASIVE DUCTAL CARCINOMA CHEMO ED PORT PLACEMENT HALF-WAY MED USE lt poss rt ij port lt poss rt ij port 2WKS LABS NEW START fulphila Hemangioma of intra-abdominal structures Reason for Visit Hyperlipidemia Migraines 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 Bronchitis Maxillary sinusitis Right acute otitis media Invasive ductal carcinoma of right breast Encounter for education Invasive ductal carcinoma of right breast Encounter for insertion of venous access port Invasive ductal carcinoma of right breast Liver hemangioma Encounter for chemotherapy management Encounter for monitoring cardiotoxic drug therapy Invasive ductal carcinoma of right breast Liver hemangioma Chief Complaint Bronchitits BIRADS 5 BREAST MASS X2 BREAST MASS X2 NEW-BREAST CA RT BREAST MASS X2; INVASIVE DUCTAL CARCINOMA CHEMO ED PORT PLACEMENT HALF-WAY MED USE lt poss rt ij port lt poss rt ij port 2WKS LABS NEW START Hemangioma of intra-abdominal structures SUTURE REMOVAL 10 DAYS LABS TOX CHECK fulphila Hair complaints Reason for Visit Bronchitis Maxillary sinusitis Right acute otitis media Invasive ductal carcinoma of right breast Encounter for education Invasive ductal carcinoma of right breast Encounter for insertion of venous access port Invasive ductal carcinoma of right breast Liver hemangioma Encounter for chemotherapy management Encounter for monitoring cardiotoxic drug therapy Invasive ductal carcinoma of right breast Liver hemangioma Encounter for insertion of venous access port Encounter for chemotherapy management Encounter for monitoring cardiotoxic drug therapy Invasive ductal carcinoma of right breast Liver hemangioma Folliculitis Staphylococcal infection Chief Complaint BIRADS 5 BREAST MASS X2 BREAST MASS X2 NEW-BREAST CA RT BREAST MASS X2; INVASIVE DUCTAL CARCINOMA CHEMO ED PORT PLACEMENT HALF-WAY MED USE lt poss rt ij port lt poss rt ij port 2WKS LABS NEW START Hemangioma of intra-abdominal structures SUTURE REMOVAL 10 DAYS LABS TOX CHECK Hair complaints 2WKS LABS TCHP TOX CHECK - LABS 3 WKS - LABS - TCHP 3 WKS - LABS - TCHP fulphila WEAKNESS Reason for Visit Invasive ductal carc inoma of right breast Encounter for education Invasive ductal carcinoma of right breast Encounter for insertion of venous access port Liver hemangioma Invasive ductal carcinoma of right breast Encounter for chemotherapy management Encounter for monitoring cardiotoxic drug therapy Liver hemangioma Invasive ductal carcinoma of right breast Encounter for insertion of venous access port Encounter for chemotherapy management Encounter for monitoring cardiotoxic drug therapy Liver hemangioma Invasive ductal carcinoma of right breast Folliculitis Staphylococcal infection Acute prerenal azotemia Diarrhea due to drug Anemia Invasive ductal carcinoma of right breast Diarrhea due to drug Left ankle pain Anemia Invasive ductal carcinoma of right breast Acute prerenal azotemia Diarrhea due to drug Anemia Invasive ductal carcinoma of right breast Acute prerenal azotemia Diarrhea due to drug Encounter for chemotherapy management Anemia Invasive ductal carcinoma of right breast Chief Complaint 10 DAYS LABS TOX KENDRICK CK Hair complaints 2WKS LABS TCHP TOX CHECK - LABS 3 WKS - LABS - TCHP 3 WKS - LABS - TCHP WEAKNESS Rash 3 WKS - LABS - TCHP 3 WKS - LABS - TCHP 1 WK - LABS PORT ACCESS FOR CT Encounter for therapeutic drug level monitoring medication refills Reason for Visit Encounter for chemot herapy management Encounter for monitoring cardiotoxic drug therapy Liver hemangioma Invasive ductal carcinoma of right breast Folliculitis Staphylococcal infection Acute prerenal azotemia Diarrhea due to drug Anemia Invasive ductal carcinoma of right breast Diarrhea due to drug Left ankle pain Anemia Invasive ductal carcinoma of right breast Acute prerenal azotemia Diarrhea due to drug Anemia Invasive ductal carcinoma of right breast Acute prerenal azotemia Diarrhea due to drug Encounter for chemotherapy management Anemia Invasive ductal carcinoma of right breast Folliculitis Staphylococcal infection 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 Acute prerenal azotemia Diarrhea due to drug Anemia Invasive ductal carcinoma of right breast Acute prerenal azotemia Diarrhea due to drug Anemia Invasive ductal carcinoma of right breast Diarrhea due to drug Anemia Invasive ductal carcinoma of right breast C. difficile diarrhea Diabetes type 1, controlled Insomnia disorder Chief Complaint Encounter for therap eutic drug level monitoring medication refills REVIEW MRI BREAST RESULTS Right Breast stereo wire loc Lumpec Right Breast stereo wire loc Lumpec R BREAST LUMPECTOMY 12/25 POST OP F/U CONSULT - BREAST medication refills hyster consult, ref from Arelis Wang [facility] OTV 3WKS LABS HERCEPTIN TAMOXIFEN EDUCATION AND SCP OTV OTV OTV 3 WEEKS, NO LABS, TX 3 WEEKS, LABS, TX CA Tx SCREEN Reason for Visit Diabetes type 1, con trolled Insomnia disorder C. difficile diarrhea Invasive ductal carcinoma of right breast Status post chemotherapy Status post right breast lumpectomy Invasive ductal carcinoma of right breast Status post chemotherapy Anemia Invasive ductal carcinoma of right breast Invasive ductal carcinoma of right breast Fatigue Hyperlipidemia Insomnia disorder 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 Anemia Status post right breast lumpectomy Invasive ductal carcinoma of right breast Status post chemotherapy Invasive ductal carcinoma of right breast Anemia Invasive ductal carcinoma of right breast Anemia Invasive ductal carcinoma of right breast Encounter for education Invasive ductal carcinoma of right breast Invasive ductal carcinoma of right breast Invasive ductal carcinoma of right breast Anemia Invasive ductal carcinoma of right breast Invasive ductal carcinoma of right breast Chief Complaint Right Breast stereo wire loc Lumpec Right Breast stereo wire loc Lumpec R BREAST LUMPECTOMY 12/25 POST OP F/U CONSULT - BREAST medication refills hyster consult, ref from Arelis Wang [facility] OTV 3WKS LABS HERCEPTIN TAMOXIFEN EDUCATION AND SCP OTV OTV OTV 3 WEEKS, NO LABS, TX 3 WEEKS, LABS, TX SCREEN Diabetes Mellitus Type 2 A1c 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 (current) drug therapy 1 MONTH F/U POST RT BREAST CA Tx 3 WEEK, NO LABS, TX COV, FLU, RSV PCR Reason for Visit Status post right br east lumpectomy Invasive ductal carcinoma of right breast Status post chemotherapy Anemia Invasive ductal carcinoma of right breast Invasive ductal carcinoma of right breast Fatigue Hyperlipidemia Insomnia disorder 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 Anemia Status post right breast lumpectomy Invasive ductal carcinoma of right breast Status post chemotherapy Invasive ductal carcinoma of right breast Anemia Invasive ductal carcinoma of right breast Anemia Invasive ductal carcinoma of right breast Encounter for education Invasive ductal carcinoma of right breast Invasive ductal carcinoma of right breast Invasive ductal carcinoma of right breast Anemia Invasive ductal carcinoma of right breast Invasive ductal carcinoma of right breast Fatigue 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 Invasive ductal carcinoma of right breast Chief Complaint Right Breast stereo wire loc Lumpec Right Breast stereo wire loc Lumpec R BREAST LUMPECTOMY 12/25 POST OP F/U CONSULT - BREAST medication refills hyster consult, ref from Arelis Wang [facility] OTV 3WKS LABS HERCEPTIN TAMOXIFEN EDUCATION AND SCP OTV OTV OTV 3 WEEKS, NO LABS, TX 3 WEEKS, LABS, TX SCREEN Diabetes Mellitus Type 2 A1c Other longterm (current) drug therapy 1 MONTH F/U POST RT BREAST CA Tx 3 WEEK, NO LABS, TX COV, FLU, RSV PCR Bronchitis Reason for Visit Status post right br east lumpectomy Invasive ductal carcinoma of right breast Status post chemotherapy Anemia Invasive ductal carcinoma of right breast Invasive ductal carcinoma of right breast Fatigue Hyperlipidemia Insomnia disorder 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 Anemia Status post right breast lumpectomy Invasive ductal carcinoma of right breast Status post chemotherapy Invasive ductal carcinoma of right breast Anemia Invasive ductal carcinoma of right breast Anemia Invasive ductal carcinoma of right breast Encounter for education Invasive ductal carcinoma of right breast Invasive ductal carcinoma of right breast Invasive ductal carcinoma of right breast Anemia Invasive ductal carcinoma of right breast Invasive ductal carcinoma of right breast Fatigue 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 Invasive ductal carcinoma of right breast Body aches Cough Invasive ductal carcinoma of right breast Maxillary sinusitis, acute 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 Bronchitis Chief Complaint 3 WEEKS, LABS, TX SCREEN Diabetes Mellitus Type 2 A1c Other longterm (current) drug therapy 1 MONTH F/U POST RT BREAST 3 WEEK, NO LABS, TX COV, FLU, RSV PCR Bronchitis Cough follow-up 3 WEEK, NO LABS, HERCEPTIN PAP exam 3 WKS - LABS - HERCEPTIN medication refills(Insomnia) 3 WKS - NO LABS - HERCEPTIN 3 WKS - LABS - HERCEPTIN CA Tx Abnormal uterine and vaginal bleeding; SCREENING Encounter for therapeutic drug level monitoring Reason for Visit Invasive ductal carc inoma of right breast Fatigue 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 Invasive ductal carcinoma of right breast Invasive ductal carcinoma of right breast 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 Bronchitis Invasive ductal carcinoma of right breast Abnormal uterine bleeding (AUB) HPV test positive Use of tamoxifen (Nolvadex) Invasive ductal carcinoma of right breast Routine gynecological examination Invasive ductal carcinoma of right breast Hyperlipidemia 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 Fatigue Invasive ductal carcinoma of right breast Invasive ductal carcinoma of right breast Chief Complaint SCREEN Diabetes Mellitus Type 2 A1c Other longterm (current) drug therapy 1 MONTH F/U POST RT BREAST 3 WEEK, NO LABS, TX COV, FLU, RSV PCR Bronchitis Cough follow-up 3 WEEK, NO LABS, HERCEPTIN PAP exam 3 WKS - LABS - HERCEPTIN medication refills(Insomnia) 3 WKS - NO LABS - HERCEPTIN 3 WKS - LABS - HERCEPTIN CA Tx Abnormal uterine and vaginal bleeding; SCREENING Encounter for therapeutic drug level monitoring EMB E-ORDER/ ADD LABSPEC Reason for Visit Fatigue 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 Invasive ductal carcinoma of right breast Invasive ductal carcinoma of right breast 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 Bronchitis Invasive ductal carcinoma of right breast Abnormal uterine bleeding (AUB) HPV test positive Use of tamoxifen (Nolvadex) Invasive ductal carcinoma of right breast Routine gynecological examination Invasive ductal carcinoma of right breast Hyperlipidemia 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 Fatigue Invasive ductal carcinoma of right breast Invasive ductal carcinoma of right breast Abnormal uterine bleeding (AUB) Ovarian cyst Thickened endometrium Use of tamoxifen (Nolvadex) Chief Complaint Diabetes Mellitus Ty pe 2 A1c Other longterm (current) drug therapy 1 MONTH F/U POST RT BREAST 3 WEEK, NO LABS, TX COV, FLU, RSV PCR Bronchitis Cough follow-up 3 WEEK, NO LABS, HERCEPTIN PAP exam 3 WKS - LABS - HERCEPTIN medication refills(Insomnia) 3 WKS - NO LABS - HERCEPTIN 3 WKS - LABS - HERCEPTIN Abnormal uterine and vaginal bleeding; SCREENING Encounter for therapeutic drug level monitoring EMB E-ORDER/ ADD LABSPEC 3 WKS - NO LABS - TRASTUZUMAB 4 MONTH F/U BREAST CA Tx ORVARIAN CYST Reason for Visit Fatigue 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 Invasive ductal carcinoma of right breast Invasive ductal carcinoma of right breast 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 Bronchitis Invasive ductal carcinoma of right breast Abnormal uterine bleeding (AUB) HPV test positive Use of tamoxifen (Nolvadex) Invasive ductal carcinoma of right breast Routine gynecological examination Invasive ductal carcinoma of right breast Hyperlipidemia 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 Fatigue Invasive ductal carcinoma of right breast Invasive ductal carcinoma of right breast Abnormal uterine bleeding (AUB) Ovarian cyst Thickened endometrium Use of tamoxifen (Nolvadex) Invasive ductal carcinoma of right breast Invasive ductal carcinoma of right breast Chief Complaint Admit Date BREAST CA Encounter for therapeutic drug level mon February 29, 2024 7:27am 3 MONTH-LABS PRIOR February 29, 2024 8 :34am 6 wk TRHBSO cysto March 14, 2024 8:21am 1 Y FU March 18, 2024 8:51am 4 MONTH F/U BREAST April 18, 2024 2 :16pm 3 MO - NO LABS May 16, 2024 11:18am medication refills June 06, 2024 7:1 0pm Diabetes June 22, 2024 8:0 8am CHEST PAIN June 26, 2024 4:2 7pm Reason for Visit Admit Date Invasive ductal carcinoma of right breas t February 29, 2024 8:34am Status post hysterectomy with oophorecto my March 14, 2024 8:21am Invasive ductal carcinoma of right breas t March 14, 2024 8:21am Encounter for monitoring cardiotoxic jass g therapy March 18, 2024 8:51am Hyperlipidemia March 18, 2024 8:51am Diabetes type 1, controlled February 8:51am Invasive ductal carcinoma of right breas t April 18, 2024 2:16pm Invasive ductal carcinoma of right breas t May 16, 2024 11:18am Insomnia disorder June 06, 2024 7:1 0pm Type 2 diabetes mellitus wit h features of insulin resistance June 06, 2024 7:10pm Anemia June 06, 2024 7:1 0pm Hyperlipidemia June 06, 2024 7:1 0pm Chronic kidney disease June 22, 2024 8:08am Hyperlipidemia June 22, 2024 8:0 8am Overweight June 22, 2024 8:0 8am Type 2 diabetes mellitus without complic ations June 22, 2024 8:08am Chief Complaint Admit Date 1 Y FU March 18, 2024 8:51am 4 MONTH F/U BREAST April 18, 2024 2 :16pm 3 MO - NO LABS May 16, 2024 11:18am medication refills June 06, 2024 7:1 0pm Diabetes June 22, 2024 8:0 8am CHEST PAIN June 26, 2024 4:2 7pm SCREENING July 11, 2024 7:4 5am Reason for Visit Admit Date Encounter for monitoring cardiotoxic jass g therapy March 18, 2024 8:51am Hyperlipidemia March 18, 2024 8:51am Diabetes type 1, controlled February 8:51am Invasive ductal carcinoma of right breas t April 18, 2024 2:16pm Invasive ductal carcinoma of right breas t May 16, 2024 11:18am Insomnia disorder June 06, 2024 7:1 0pm Type 2 diabetes mellitus wit h features of insulin resistance June 06, 2024 7:10pm Anemia June 06, 2024 7:1 0pm Hyperlipidemia June 06, 2024 7:1 0pm Chronic kidney disease June 22, 2024 8:08am Hyperlipidemia June 22, 2024 8:0 8am Overweight June 22, 2024 8:0 8am Type 2 diabetes mellitus without complic ations June 22, 2024 8:08am Chief Complaint Admit Date medication refills June 06, 2024 7:1 0pm Diabetes June 22, 2024 8:0 8am CHEST PAIN June 26, 2024 4:2 7pm SCREENING July 11, 2024 7:4 5am PORT FLUSH September 14, 2024 3:21 pm [facility] September 15, 2024 9:59 am Reason for Visit Admit Date Insomnia disorder June 06, 2024 7:1 0pm Type 2 diabetes mellitus with features o f insulin resistance June 06, 2024 7:10pm Anemia June 06, 2024 7:1 0pm Hyperlipidemia June 06, 2024 7:1 0pm Chronic kidney disease June 22, 2024 8:08am Hyperlipidemia June 22, 2024 8:0 8am Overweight June 22, 2024 8:0 8am Type 2 diabetes mellitus without complic ations June 22, 2024 8:08am Invasive ductal carcinoma of right breas t September 15, 2024 9:59am Chief Complaint Admit Date medication refills June 06, 2024 7:1 0pm Diabetes June 22, 2024 8:0 8am CHEST PAIN June 26, 2024 4:2 7pm SCREENING July 11, 2024 7:4 5am PORT FLUSH September 14, 2024 3:21 pm [facility] September 15, 2024 9:59 am 3 M FU September 15, 2024 1:40 pm Chief Complaint Admit Date Diabetes June 22, 2024 8:0 8am CHEST PAIN June 26, 2024 4:2 7pm SCREENING July 11, 2024 7:4 5am PORT FLUSH September 14, 2024 3:21 pm [facility] September 15, 2024 9:59 am 3 M FU September 15, 2024 1:40 pm INT LABS October 03, 2024 8:11a m Reason for Visit Admit Date Chronic kidney disease June 22, 2024 8:08am Hyperlipidemia June 22, 2024 8:0 8am Overweight June 22, 2024 8:0 8am Type 2 diabetes mellitus without complic ations June 22, 2024 8:08am Invasive ductal carcinoma of right breas t September 15, 2024 9:59am Hyperlipidemia September 15, 2024 1:40 pm Overweight September 15, 2024 1:40 pm Type 2 diabetes mellitus without complic ations September 15, 2024 1:40pm Chief Complaint Admit Date PORT FLUSH September 14, 2024 3:21 pm [facility] September 15, 2024 9:59 am 3 M FU September 15, 2024 1:40 pm INT LABS October 03, 2024 8:11a m medication refills/Labs December 05 025 3:44pm SELF REFERRED- DIARRHEA MULTIPLE WEEKS S [facility] 2024 8:14am Reason for Visit Admit Date Invasive ductal carcinoma of right breas t September 15, 2024 9:59am Hyperlipidemia September 15, 2024 1:40 pm Overweight September 15, 2024 1:40 pm Type 2 diabetes mellitus without complic ations September 15, 2024 1:40pm Cold sore December 05, 2024 3:44pm Insomnia disorder December 05, 2024 3:44pm Migraines December 05, 2024 3:44pm Diarrhea December 23, 2024 8:14am Chief Complaint Admit Date [facility] September 15, 2024 9:59 am 3 M FU September 15, 2024 1:40 pm INT LABS October 03, 2024 8:11a m medication refills/Labs December 05 025 3:44pm SELF REFERRED- DIARRHEA MULTIPLE WEEKS S [facility] 2024 8:14am PORT FLUSH December 29, 2024 8: 40am 4 MO - LABS (DOING PRIOR) December 29 025 9:45am Reason for Visit Admit Date Invasive ductal carcinoma of right breas t September 15, 2024 9:59am Hyperlipidemia September 15, 2024 1:40 pm Overweight September 15, 2024 1:40 pm Type 2 diabetes mellitus without complic ations September 15, 2024 1:40pm Cold sore December 05, 2024 3:44pm Insomnia disorder December 05, 2024 3:44pm Migraines December 05, 2024 3:44pm Diarrhea December 23, 2024 8:14am Invasive ductal carcinoma of right breas t December 29, 2024 9:45am Additional Source Comments Reason for Visit (unrecogniz ed section and content) Reason Comments Headache Scheduled Active and Recently Administ ered Medications (unrecognized section and content) Medication Order 11/19/2020 11/20/2020 11/21/2020 0.9 % sodium chloride bolus (COMPLETED) 1,000 mL (13.8 mL/kg), IntraVENous, at 2,000 mL/hr, Administer over 0.5 Hours, ONCE, On Thu11/21/20 at 2034, For 1 dose 2101 (New Bag - Prov ider: Jean Acosta RN)2131 (Stopped - Provider: Jean Acosta RN) diphenhydrAMINE (BENADRYL) injection 25 mg (COMPLETED) 25 mg, IntraVENous, ONCE, On Thu11/21/20 at 2034, For 1 dose 2103 (Given - Provid er: Jean Acosta RN) ketorolac (TORADOL) injection 15 mg 15 mg, IntraVENous, ONCE, On Thu11/21/20 at 2150, For 1 dose, Do not administer for more than 5 days. 2199 (Not Given - Pr ovider: Jean Acosta RN - Reason: Patient/family refused) metoclopramide (REGLAN) injection 10 mg (COMPLETED) 10 mg, IntraVENous, ONCE, On Thu11/21/20 at 2034, For 1 dose 2102 (Given - Provid er: Jena Acosta RN) sodium chloride flush 0.9 % injection 3 mL(Linked Group 1) 3 mL, IntraVENous, EVERY 8 HOURS, First dose on Thu11/21/20 at 2034, Flush line with 3-5 mL 2225 (Given - Provid er: Jean Acosta RN) No Frequency Medication Order 11/19/2020 11/20/2020 11/21/2020 ketorolac (TORADOL) 30 MG/ML injection (COMPLETED) Starting on Thu11/21/20 at 2155, For 1 dose, JEAN ACOSTA: cabinet override 2199 (Not Given - Pr ovider: Jean Acosta RN - Reason: Patient/family refused)2216 (Given - Provider: Jean Acosta RN) Linked Groups Order Group 1: Saline lock IV (COMPLETED) Routine, CONTINUOUS, Starting on Thu11/21/20 at 204, Until Specified And sodium chloride flush 0.9 % injection 3 mLJump to med 3 mL, IntraVENous, EVERY 8 HOURS, First dose on Thu11/21/20 at 2034
Flush line with 3-5 mL
INFORMATION SOURCE (unrecogn ized section and content) DATE CREATED AUTHOR 11/23/2020 [facility] DATE CREATED AUTHOR AUTHOR'S ORGANIZ ATION 06/30/2022 [facility] DATE CREATED AUTHOR AUTHOR'S ORGANIZ ATION 07/24/2022 [facility] DATE CREATED AUTHOR AUTHOR'S ORGANIZ ATION 09/08/2022 [facility] ([place]) DATE CREATED AUTHOR AUTHOR'S ORGANIZ ATION 02/08/2023 [facility] DATE CREATED AUTHOR AUTHOR'S ORGANIZ ATION 02/09/2025 [facility] [place] Goals (unrecognized section and content) Goals may be documented in a n alternate sectionGoals may be documented in an alternate sectionGoals may be documented in an alternate sectionGoals may be documented in an alternate sectionGoals may be documented in an alternate sectionGoals may be documented in an alternate sectionGoals may be documented in an alternate sectionGoals may be documented in an alternate sectionGoals may be documented in an alternate sectionGoals may be documented in an alternate sectionGoals may be documented in an alternate sectionGoals may be documented in an alternate sectionGoals may be documented in an alternate sectionGoals may be documented in an alternate sectionGoals may be documented in an alternate sectionGoals may be documented in an alternate sectionGoals may be documented in an alternate section Care Teams (unrecognized sec tion and content) Team Status: Active Member Role Status Dates Jose Loving OVER SHORT AND DAMAGE CLERK, OVER SHORT AND DAMAGE CLERK-C Primary Care Provider Active Team Status: Inactive Member Role Status Dates Jose Loving OVER SHORT AND DAMAGE CLERK, OVER SHORT AND DAMAGE CLERK-C Primary Care Provider, Referr ing Provider Active Dr. Reba Lopez DO Attending Provider Activ e Team Status: Inactive Member Role Status Dates Jose Loving OVER SHORT AND DAMAGE CLERK, OVER SHORT AND DAMAGE CLERK-C Primary Care Provider, Referr ing Provider Active Deidre Hinkle OVER SHORT AND DAMAGE CLERK, OVER SHORT AND DAMAGE CLERK-C Attending Provider Active Team Status: Active Member Role Status Dates Jose Loving OVER SHORT AND DAMAGE CLERK, OVER SHORT AND DAMAGE CLERK-C Primary Care Provider Active Dr. Mariano Karimi DO Attending Provider, Referring P rovider Active Team Status: Inactive Member Role Status Dates Jose Loving OVER SHORT AND DAMAGE CLERK, OVER SHORT AND DAMAGE CLERK-C Primary Care Provider, Referr ing Provider Active Dr. Myrna Szymanski MD Attending Provider Active Team Status: Inactive Member Role Status Dates Jose Loving OVER SHORT AND DAMAGE CLERK, OVER SHORT AND DAMAGE CLERK-C Primary Care Provider Active Dr. Mariano Karimi DO Attending Provider, Referring P rovider Active Team Status: Inactive Member Role Status Dates Dr. Mookie Nelson MD Active Dr. Mariano Karimi DO Attending Provider, Referring P rovider Active Team Status: Inactive Member Role Status Dates Jose Loving OVER SHORT AND DAMAGE CLERK, OVER SHORT AND DAMAGE CLERK-C Primary Care Provider, Referr ing Provider Active Arelis Wang OVER SHORT AND DAMAGE CLERK, OVER SHORT AND DAMAGE CLERK-C Attending Provider Active Team Status: Inactive Member Role Status Dates Jose Loving OVER SHORT AND DAMAGE CLERK, OVER SHORT AND DAMAGE CLERK-C Primary Care Provider, Referr ing Provider Active Dr. Lexx Lim MD Attending Provider Active Team Status: Inactive Member Role Status Dates Jose Loving OVER SHORT AND DAMAGE CLERK, OVER SHORT AND DAMAGE CLERK-C Primary Care Provider Active Dr. Mariano Karimi DO Attending Provider Active Team Status: Active Member Role Status Dates Jose Loving OVER SHORT AND DAMAGE CLERK, OVER SHORT AND DAMAGE CLERK-C Primary Care Provider Active Dr. Ulises Cole MD Attending Provider Active Team Status: Inactive Member Role Status Dates Jose Loving OVER SHORT AND DAMAGE CLERK, OVER SHORT AND DAMAGE CLERK-C Primary Care Pr ovider, Attending Provider, Referring Provider Active Team Status: Active Member Role Status Dates Jose Loving OVER SHORT AND DAMAGE CLERK, OVER SHORT AND DAMAGE CLERK-C Primary Care Provider Active Dr. Myrna Szymanski MD Attending Provider, Referrin g Provider Active Dr. Mariano Karimi DO Active Team Status: Inactive Member Role Status Dates Jose Loving OVER SHORT AND DAMAGE CLERK, OVER SHORT AND DAMAGE CLERK-C Primary Care Provider Active Arelis Wang OVER SHORT AND DAMAGE CLERK, OVER SHORT AND DAMAGE CLERK-C Attending Provider, Referring Provider Active Team Status: Inactive Member Role Status Dates Jose Loving OVER SHORT AND DAMAGE CLERK, OVER SHORT AND DAMAGE CLERK-C Primary Care Provider Active Dr. Myrna Szymanski MD Attending Provider, Referrin g Provider Active Team Status: Inactive Member Role Status Dates Jose Loving OVER SHORT AND DAMAGE CLERK, OVER SHORT AND DAMAGE CLERK-C Primary Care Provider Active Deidre Hinkle NP, OVER SHORT AND DAMAGE CLERK-C Attending Provider, Referring Provider Active Team Status: Active Member Role Status Dates Dr. Mary Jo Deshpande MD Attending Provi lorena, Referring Provider, Other Provider Active Jose Loving OVER SHORT AND DAMAGE CLERK, OVER SHORT AND DAMAGE CLERK-C Primary Care Provider Active Team Status: Inactive Member Role Status Dates Jose Loving OVER SHORT AND DAMAGE CLERK, OVER SHORT AND DAMAGE CLERK-C Primary Care Provider, Referr ing Provider Active Dr. Mary Jo Deshpande MD Attending Provider Active Team Status: Inactive Member Role Status Dates Jose Loving OVER SHORT AND DAMAGE CLERK, OVER SHORT AND DAMAGE CLERK-C Primary Care Provider, Referr ing Provider Active Dr. Mariano Karimi DO Attending Provider Active Team Status: Active Member Role Status Dates Jose Loving OVER SHORT AND DAMAGE CLERK, OVER SHORT AND DAMAGE CLERK-C Primary Care Provider Active Arelis Wang OVER SHORT AND DAMAGE CLERK, OVER SHORT AND DAMAGE CLERK-C Attending Provider Active Team Status: Active Member Role Status Dates Jose Loving OVER SHORT AND DAMAGE CLERK, OVER SHORT AND DAMAGE CLERK-C Primary Care Provider Active Arelis Wang OVER SHORT AND DAMAGE CLERK, OVER SHORT AND DAMAGE CLERK-C Attending Provider, Referring Provider Active Team Status: Inactive Member Role Status Dates Dr. Mary Jo Deshpande MD Attending Provider, Referring Provider Active Jose Loving OVER SHORT AND DAMAGE CLERK, OVER SHORT AND DAMAGE CLERK-C Primary Care Provider Active Team Status: Inactive Member Role Status Dates Jose Loving OVER SHORT AND DAMAGE CLERK, OVER SHORT AND DAMAGE CLERK-C Primary Care Provider Active Dr. Daina Vaughan MD Attending Provider, Referring Pr ovider Active Team Status: Active Member Role Status Dates Jose Loving OVER SHORT AND DAMAGE CLERK, OVER SHORT AND DAMAGE CLERK-C Primary Care Provider Active Dr. Mary Jo Deshpande MD Attending Provider, Other Pro vider Active Team Status: Inactive Member Role Status Dates Jose Loving OVER SHORT AND DAMAGE CLERK, OVER SHORT AND DAMAGE CLERK-C Primary Care Provider Active Dr. Mary Jo Deshpande MD Attending Provider Active Team Status: Inactive Member Role Status Dates Jose Loving OVER SHORT AND DAMAGE CLERK, OVER SHORT AND DAMAGE CLERK-C Primary Care Provider Active Dr. Mary Jo Deshpande MD Attending Provider, Referring Provider Active Team Status: Active Member Role Status Dates Jose Loving OVER SHORT AND DAMAGE CLERK, OVER SHORT AND DAMAGE CLERK-C Primary Care Provider Active Dr. Myrna Szymanski MD Attending Provider, Referrin g Provider Active Team Status: Inactive Member Role Status Dates Dr. Myrna Szymanski MD Attending Provider Active Team Status: Active Member Role Status Dates Jose Loving OVER SHORT AND DAMAGE CLERK, OVER SHORT AND DAMAGE CLERK-C Primary Care Provider Active Dr. Mary Jo Deshpande MD Attending Provi lorena, Referring Provider, Other Provider Active Team Status: Active Member Role Status Dates Jose Loving OVER SHORT AND DAMAGE CLERK, OVER SHORT AND DAMAGE CLERK-C Primary Care Provider Active Dr. Myrna Szymanski MD Active Arelis Wang OVER SHORT AND DAMAGE CLERK, OVER SHORT AND DAMAGE CLERK-C Attending Provider Active Team Status: Inactive Member Role Status Dates Jose Loving OVER SHORT AND DAMAGE CLERK, OVER SHORT AND DAMAGE CLERK-C Primary Care Provider, Referr ing Provider Active Dr. Myrna Szymanski MD Active Arelistom Wang OVER SHORT AND DAMAGE CLERK, OVER SHORT AND DAMAGE CLERK-C Attending Provider Active Team Status: Inactive Member Role Status Dates Jose Loving OVER SHORT AND DAMAGE CLERK, OVER SHORT AND DAMAGE CLERK-C Primary Care Provider, Attend ing Provider Active Team Status: Inactive Member Role Status Dates Jose Loving OVER SHORT AND DAMAGE CLERK, OVER SHORT AND DAMAGE CLERK-C Primary Care Provider Active Tha Rodriguez MD Emergency Provider Active Team Status: Inactive Member Role Status Dates Jose Loving OVER SHORT AND DAMAGE CLERK, OVER SHORT AND DAMAGE CLERK-C Primary Care Provider Active Tha Rodriguez MD Attending Provider, Emergency Provid er Active Rn Emergency Relationship Specialty Start Date End Date Jose Loving [id number] [facility] [place] [address] PCP - General 11/21/20 Corey Arvizu MD [address] [place] [address], [id number] [place] [address] Consulting Physician Gynecologic Oncology 02/06/23 Team Status: Inactive Member Role Status Dates Jose Loving OVER SHORT AND DAMAGE CLERK, OVER SHORT AND DAMAGE CLERK-C Primary Care Provider Active Start: February 29, 2024 End: February 29, 2024 Arelis Felipe OVER SHORT AND DAMAGE CLERK, OVER SHORT AND DAMAGE CLERK-C Attending Provider Active Start: February 29, 2024 End: February 29, 2024 Arelis Felipe OVER SHORT AND DAMAGE CLERK, OVER SHORT AND DAMAGE CLERK-C Referring Provider Active Start: February 29, 2024 End: February 29, 2024 Team Status: Active Member Role Status Dates Jose Inder OVER SHORT AND DAMAGE CLERK, OVER SHORT AND DAMAGE CLERK-C Primary Care Provider Active Start: February 29, 2024 Dr. Ulises Cole MD Attending Provider Active S tart: February 29, 2024 Team Status: Inactive Member Role Status Dates Jose Loving OVER SHORT AND DAMAGE CLERK, OVER SHORT AND DAMAGE CLERK-C Primary Care Provider Active Start: February 29, 2024 End: February 29, 2024 Jose Loving OVER SHORT AND DAMAGE CLERK, OVER SHORT AND DAMAGE CLERK-C Referring Provider Active Start: February 29, 2024 End: February 29, 2024 Dr. Myrna Szymanski MD Attending Provider Active Start: February 29, 2024 End: February 29, 2024 Team Status: Inactive Member Role Status Dates Jose Idner OVER SHORT AND DAMAGE CLERK, OVER SHORT AND DAMAGE CLERK-C Primary Care Provider Active Start: March 14, 2024 End: March 14, 2024 Jose Inder OVER SHORT AND DAMAGE CLERK, OVER SHORT AND DAMAGE CLERK-C Referring Provider Active Start: March 14, 2024 End: March 14, 2024 Dr. Reba Lopez DO Attending Provider Activ e Start: March 14, 2024 End: March 14, 2024 Team Status: Inactive Member Role Status Dates Jose Inder OVER SHORT AND DAMAGE CLERK, OVER SHORT AND DAMAGE CLERK-C Primary Care Provider Active Start: March 18, 2024 End: March 18, 2024 Jose Inder OVER SHORT AND DAMAGE CLERK, OVER SHORT AND DAMAGE CLERK-C Referring Provider Active Start: March 18, 2024 End: March 18, 2024 Dr. Ulises Cole MD Attending Provider Active S tart: March 18, 2024 End: March 18, 2024 Team Status: Inactive Member Role Status Dates Jose Loving OVER SHORT AND DAMAGE CLERK, OVER SHORT AND DAMAGE CLERK-C Primary Care Provider Active Start: April 18, 2024 End: April 18, 2024 Jose Loving OVER SHORT AND DAMAGE CLERK, OVER SHORT AND DAMAGE CLERK-C Referring Provider Active Start: April 18, 2024 End: April 18, 2024 Dr. Mariano Karimi DO Attending Provider Active Start: April 18, 2024 End: April 18, 2024 Team Status: Inactive Member Role Status Dates Jose Loving OVER SHORT AND DAMAGE CLERK, OVER SHORT AND DAMAGE CLERK-C Primary Care Provider Active Start: May 16, 2024 End: May 16, 2024 Jose Loving OVER SHORT AND DAMAGE CLERK, OVER SHORT AND DAMAGE CLERK-C Referring Provider Active Start: May 16, 2024 End: May 16, 2024 Arelis Wang OVER SHORT AND DAMAGE CLERK, OVER SHORT AND DAMAGE CLERK-C Attending Provider Active Start: May 16, 2024 End: May 16, 2024 Team Status: Inactive Member Role Status Dates Jose Loving OVER SHORT AND DAMAGE CLERK, OVER SHORT AND DAMAGE CLERK-C Primary Care Provider Active Start: June 06, 2024 End: June 06, 2024 Jose Loving OVER SHORT AND DAMAGE CLERK, OVER SHORT AND DAMAGE CLERK-C Attending Provider Active Start: June 06, 2024 End: June 06, 2024 Jose Loving OVER SHORT AND DAMAGE CLERK, OVER SHORT AND DAMAGE CLERK-C Referring Provider Active Start: June 06, 2024 End: June 06, 2024 Team Status: Inactive Member Role Status Dates Jose Loving OVER SHORT AND DAMAGE CLERK, OVER SHORT AND DAMAGE CLERK-C Primary Care Provider Active Start: June 22, 2024 End: June 22, 2024 Jose Loving OVER SHORT AND DAMAGE CLERK, OVER SHORT AND DAMAGE CLERK-C Referring Provider Active Start: June 22, 2024 End: June 22, 2024 Willy Guardado , OVER SHORT AND DAMAGE CLERK-C Attending Provider Active Start: June 22, 2024 End: June 22, 2024 Team Status: Inactive Member Role Status Dates Jose Loving OVER SHORT AND DAMAGE CLERK, OVER SHORT AND DAMAGE CLERK-C Primary Care Provider Active Start: June 26, 2024 End: June 26, 2024 Dr. Elvin Green DO Emergency Provider Active Start : June 26, 2024 End: June 26, 2024 Team Status: Inactive Member Role Status Dates Jose Loving OVER SHORT AND DAMAGE CLERK, OVER SHORT AND DAMAGE CLERK-C Primary Care Provider Active Start: June 26, 2024 End: June 26, 2024 Dr. Elvin Green DO Attending Provider Active Start : June 26, 2024 End: June 26, 2024 Dr. Elvin Green DO Emergency Provider Active Start : June 26, 2024 End: June 26, 2024 Team Status: Inactive Member Role Status Dates Jose Loving OVER SHORT AND DAMAGE CLERK, OVER SHORT AND DAMAGE CLERK-C Primary Care Provider Active Start: July 11, 2024 End: July 11, 2024 Dr. Mariano Karimi DO Attending Provider Active Start: July 11, 2024 End: July 11, 2024 Dr. Mariano Karimi DO Referring Provider Active Start: July 11, 2024 End: July 11, 2024 Team Status: Active Member Role Status Dates Jose Loving NP, OVER SHORT AND DAMAGE CLERK-C Primary Care Provider Active Start: September 14, 2024 Dr. Myrna Szymanski MD Attending Provider Active Start: September 14, 2024 Dr. Myrna Szymanski MD Referring Provider Active Start: September 14, 2024 Team Status: Inactive Member Role Status Dates Jose Loving OVER SHORT AND DAMAGE CLERK, OVER SHORT AND DAMAGE CLERK-C Primary Care Provider Active Start: September 15, 2024 End: September 15, 2024 Jose Loving OVER SHORT AND DAMAGE CLERK, OVER SHORT AND DAMAGE CLERK-C Referring Provider Active Start: September 15, 2024 End: September 15, 2024 Arelis Wang OVER SHORT AND DAMAGE CLERK, OVER SHORT AND DAMAGE CLERK-C Attending Provider Active Start: September 15, 2024 End: September 15, 2024 Team Status: Inactive Member Role Status Dates Jose Loving OVER SHORT AND DAMAGE CLERK, OVER SHORT AND DAMAGE CLERK-C Primary Care Provider Active Start: September 15, 2024 End: September 15, 2024 Jose Loving OVER SHORT AND DAMAGE CLERK, OVER SHORT AND DAMAGE CLERK-C Referring Provider Active Start: September 15, 2024 End: September 15, 2024 Willy Guardado OVER SHORT AND DAMAGE CLERK-C Attending Provider Active Start: September 15, 2024 End: September 15, 2024 Team Status: Active Member Role/Relationship Status Dates Jose Loving OVER SHORT AND DAMAGE CLERK, OVER SHORT AND DAMAGE CLERK-C Primary Care Provider Active Team Status: Inactive Member Role/Relationship Status Dates Jose Loving OVER SHORT AND DAMAGE CLERK, OVER SHORT AND DAMAGE CLERK-C Primary Care Provider Active Start: June 22, 2024 End: June 22, 2024 Jose Loving OVER SHORT AND DAMAGE CLERK, OVER SHORT AND DAMAGE CLERK-C Referring Provider Active Start: June 22, 2024 End: June 22, 2024 Willy Guardado OVER SHORT AND DAMAGE CLERK-C Attending Provider Active Start: June 22, 2024 End: June 22, 2024 Team Status: Inactive Member Role/Relationship Status Dates Jose Loving OVER SHORT AND DAMAGE CLERK, OVER SHORT AND DAMAGE CLERK-C Primary Care Provider Active Start: June 26, 2024 End: June 26, 2024 Dr. Elvin Green DO Attending Provider Active Start : June 26, 2024 End: June 26, 2024 Dr. Elvin Green DO Emergency Provider Active Start : June 26, 2024 End: June 26, 2024 Team Status: Inactive Member Role/Relationship Status Dates Jose Loving OVER SHORT AND DAMAGE CLERK, OVER SHORT AND DAMAGE CLERK-C Primary Care Provider Active Start: July 11, 2024 End: July 11, 2024 Dr. Mariano Karimi DO Attending Provider Active Start: July 11, 2024 End: July 11, 2024 Dr. Mariano Karimi DO Referring Provider Active Start: July 11, 2024 End: July 11, 2024 Team Status: Active Member Role/Relationship Status Dates Joes Loving OVER SHORT AND DAMAGE CLERK, OVER SHORT AND DAMAGE CLERK-C Primary Care Provider Active Start: September 14, 2024 Dr. Myrna Szymanski MD Attending Provider Active Start: September 14, 2024 Dr. Myrna Szymanski MD Referring Provider Active Start: September 14, 2024 Team Status: Inactive Member Role/Relationship Status Dates Jose Loving OVER SHORT AND DAMAGE CLERK, OVER SHORT AND DAMAGE CLERK-C Primary Care Provider Active Start: September 15, 2024 End: September 15, 2024 Jose Loving OVER SHORT AND DAMAGE CLERK, OVER SHORT AND DAMAGE CLERK-C Referring Provider Active Start: September 15, 2024 End: September 15, 2024 Arelis Wang OVER SHORT AND DAMAGE CLERK, OVER SHORT AND DAMAGE CLERK-C Attending Provider Active Start: September 15, 2024 End: September 15, 2024 Team Status: Inactive Member Role/Relationship Status Dates Jose Loving OVER SHORT AND DAMAGE CLERK, OVER SHORT AND DAMAGE CLERK-C Primary Care Provider Active Start: September 15, 2024 End: September 15, 2024 Jose Loving OVER SHORT AND DAMAGE CLERK, OVER SHORT AND DAMAGE CLERK-C Referring Provider Active Start: September 15, 2024 End: September 15, 2024 Willy Guardado OVER SHORT AND DAMAGE CLERK-C Attending Provider Active Start: September 15, 2024 End: September 15, 2024 Team Status: Inactive Member Role/Relationship Status Dates Jose Loving OVER SHORT AND DAMAGE CLERK, OVER SHORT AND DAMAGE CLERK-C Primary Care Provider Active Start: October 03, 2024 End: October 03, 2024 Willy Guardado OVER SHORT AND DAMAGE CLERK-C Attending Provider Active Start: October 03, 2024 End: October 03, 2024 Willy Guardado OVER SHORT AND DAMAGE CLERK-C Referring Provider Active Start: October 03, 2024 End: October 03, 2024 Team Status: Active Member Role/Relationship Status Dates Jose Loving NP, OVER SHORT AND DAMAGE CLERK-C Primary care physician Active Team Status: Active Member Role/Relationship Status Dates Jose Loving NP, OVER SHORT AND DAMAGE CLERK-C Primary care physician Active Start: September 14, 2024 Dr. Myrna Szymanski MD Attending physician Active Start: September 14, 2024 Dr. Myrna Szymanski MD Referring Provider Active Start: September 14, 2024 Team Status: Inactive Member Role/Relationship Status Dates Jose Loving OVER SHORT AND DAMAGE CLERK, OVER SHORT AND DAMAGE CLERK-C Primary care physician Active Start: September 15, 2024 End: September 15, 2024 Jose Loving OVER SHORT AND DAMAGE CLERK, OVER SHORT AND DAMAGE CLERK-C Referring Provider Active Start: September 15, 2024 End: September 15, 2024 Arelis Wang OVER SHORT AND DAMAGE CLERK, OVER SHORT AND DAMAGE CLERK-C Attending physician Active Start: September 15, 2024 End: September 15, 2024 Team Status: Inactive Member Role/Relationship Status Dates Jose Loving NP, OVER SHORT AND DAMAGE CLERK-C Primary care physician Active Start: September 15, 2024 End: September 15, 2024 Jose Loving OVER SHORT AND DAMAGE CLERK, OVER SHORT AND DAMAGE CLERK-C Referring Provider Active Start: September 15, 2024 End: September 15, 2024 Willy Guardado OVER SHORT AND DAMAGE CLERK-C Attending physician Active Start: September 15, 2024 End: September 15, 2024 Team Status: Inactive Member Role/Relationship Status Dates Jose Loving NP, OVER SHORT AND DAMAGE CLERK-C Primary care physician Active Start: October 03, 2024 End: October 03, 2024 Willy Guardado OVER SHORT AND DAMAGE CLERK-C Attending physician Active Start: October 03, 2024 End: October 03, 2024 Willy Guardado OVER SHORT AND DAMAGE CLERK-C Referring Provider Active Start: October 03, 2024 End: October 03, 2024 Team Status: Inactive Member Role/Relationship Status Dates Jose Loving NP, OVER SHORT AND DAMAGE CLERK-C Primary care physician Active Start: December 05, 2024 End: December 05, 2024 Jose Loving NP, OVER SHORT AND DAMAGE CLERK-C Attending physician Active Start: December 05, 2024 End: December 05, 2024 Jose Loving OVER SHORT AND DAMAGE CLERK, OVER SHORT AND DAMAGE CLERK-C Referring Provider Active Start: December 05, 2024 End: December 05, 2024 Team Status: Inactive Member Role/Relationship Status Dates Jose Loving OVER SHORT AND DAMAGE CLERK, OVER SHORT AND DAMAGE CLERK-C Primary care physician Active Start: December 23, 2024 End: December 23, 2024 Jose Loving OVER SHORT AND DAMAGE CLERK, OVER SHORT AND DAMAGE CLERK-C Referring Provider Active Start: December 23, 2024 End: December 23, 2024 Dr. Mary Jo Deshpande MD Attending physician Active Start: December 23, 2024 End: December 23, 2024 Team Status: Inactive Member Role/Relationship Status Dates Jose Loving OVER SHORT AND DAMAGE CLERK, OVER SHORT AND DAMAGE CLERK-C Primary care physician Active Start: September 15, 2024 End: September 15, 2024 Jose Loving OVER SHORT AND DAMAGE CLERK, OVER SHORT AND DAMAGE CLERK-C Referring Provider Active Start: September 15, 2024 End: September 15, 2024 Arelis Wang OVER SHORT AND DAMAGE CLERK, OVER SHORT AND DAMAGE CLERK-C Attending physician Active Start: September 15, 2024 End: September 15, 2024 Team Status: Inactive Member Role/Relationship Status Dates Jose Loving OVER SHORT AND DAMAGE CLERK, OVER SHORT AND DAMAGE CLERK-C Primary care physician Active Start: September 15, 2024 End: September 15, 2024 Jose Loving OVER SHORT AND DAMAGE CLERK, OVER SHORT AND DAMAGE CLERK-C Referring Provider Active Start: September 15, 2024 End: September 15, 2024 Willy Guardado OVER SHORT AND DAMAGE CLERK-C Attending physician Active Start: September 15, 2024 End: September 15, 2024 Team Status: Inactive Member Role/Relationship Status Dates Jose Loving NP, OVER SHORT AND DAMAGE CLERK-C Primary care physician Active Start: October 03, 2024 End: October 03, 2024 Willy Guardado OVER SHORT AND DAMAGE CLERK-C Attending physician Active Start: October 03, 2024 End: October 03, 2024 Willy Guardado OVER SHORT AND DAMAGE CLERK-C Referring Provider Active Start: October 03, 2024 End: October 03, 2024 Team Status: Inactive Member Role/Relationship Status Dates Jose Loving OVER SHORT AND DAMAGE CLERK, OVER SHORT AND DAMAGE CLERK-C Primary care physician Active Start: December 05, 2024 End: December 05, 2024 Jose Loving OVER SHORT AND DAMAGE CLERK, OVER SHORT AND DAMAGE CLERK-C Attending physician Active Start: December 05, 2024 End: December 05, 2024 Jose Loving OVER SHORT AND DAMAGE CLERK, OVER SHORT AND DAMAGE CLERK-C Referring Provider Active Start: December 05, 2024 End: December 05, 2024 Team Status: Inactive Member Role/Relationship Status Dates Jose Loving OVER SHORT AND DAMAGE CLERK, OVER SHORT AND DAMAGE CLERK-C Primary care physician Active Start: December 23, 2024 End: December 23, 2024 Jose Loving OVER SHORT AND DAMAGE CLERK, OVER SHORT AND DAMAGE CLERK-C Referring Provider Active Start: December 23, 2024 End: December 23, 2024 Dr. Mary Jo Deshpande MD Attending physician Active Start: December 23, 2024 End: December 23, 2024 Team Status: Active Member Role/Relationship Status Dates Jose Loving NP, OVER SHORT AND DAMAGE CLERK-C Primary care physician Active Start: December 29, 2024 Dr. Myrna Szymanski MD Attending physician Active Start: December 29, 2024 Dr. Myrna Szymanski MD Referring Provider Active Start: December 29, 2024 Team Status: Inactive Member Role/Relationship Status Dates Jose Loving NP, OVER SHORT AND DAMAGE CLERK-C Primary care physician Active Start: December 29, 2024 End: December 29, 2024 Jose Loving NP, NP-C Referring Provider Active Start: December 29, 2024 End: December 29, 2024 Dr. Myrna Szymanski MD Attending physician Active Start: December 29, 2024 End: December 29, 2024 Source Comments (unrecognize d section and content) In the event this informatio n is protected by the Federal Confidentiality of Alcohol and Drug Abuse Patient Records regulations: The Federal rules restrict any use of the information to criminally investigate or prosecute any alcohol or drug abuse patient.[facility] the event this information is protected by the Federal Confidentiality of Alcohol and Drug Abuse Patient Records regulations: The Federal rules restrict any use of the information to criminally investigate or prosecute any alcohol or drug abuse patient.[facility] FOR RECORDS PERTAINING TO PATIENTS WHO ARE [...] BE BASED ON THE PRIMARY CLINICAL RECORDS. [employer] [facility]. provides no warranty or guarantee of the accuracy or completeness of information in this document.
--- NOTE | 2025-02-22 07:29 | H&P.OPEN ---
HPI - General General Date of Service: 02/22/25 HPI Narrative ISABELLE NAGY, is a 45 F who presents colonoscopy due to diarrhea. Patient is still having mostly diarrhea we will plan for random biopsies. Office visit 12/23/2024 HPI HPI: 44-year-old female presents due to 4-week history of diarrhea. Patient states she will go typically between 1-3 times daily denies any blood. Patient denies any change with food. Patient was previously having more normal bowel movements. Patient did have C. difficile diagnosed previously while she was getting chemotherapy in . Patient denies any reflux symptoms or abdominal pain. Except for she has noticed since her right lumpectomy she has had 5 episodes of sharp pain when bending down and looking which seems to be not at the breast more underneath the ribs. Does resolve on its own-related to movement not food. [facility] Medical History (Updated 02/21/25 @ 09:04 by Tisha Teixeira) Cardiology follow-up encounter History of breast cancer Chronic kidney disease History of renal disease Bone pain Screening for osteoporosis Visit for pelvic exam Well adult exam History of Clostridium difficile infection History of echocardiogram C. difficile diarrhea Hypokalemia Left ankle pain Anemia Encounter for chemotherapy management Encounter for monitoring cardiotoxic drug therapy Wears glasses Cancer Anxiety Insulin dependent diabetes mellitus Back pain Dietary restriction Former smoker Shortness of breath on exertion Hx of tear of ACL (anterior cruciate ligament) Liver hemangioma Encounter for insertion of venous access port Abnormal MRI Encounter for education CINV (chemotherapy-induced nausea and vomiting) Invasive ductal carcinoma of right breast Migraines Adopted Cleft lip Herpes simplex Hypercholesterolemia Home Medications ?Medication ?Instructions ?Recorded ?Last Taken ?Type multivitamin 1 tab PO DAILY 12/01/17 02/17/25 History sumatriptan succinate 100 mg tablet 100 mg PO PRN PRN MIGRAINES 07/28/22 Unknown History pen needle, diabetic 29 gauge x #270 ea 06/12/23 Unknown Rx 1/2 (BD Ultra-Fine Original Pen Needle) calcium 600 mg (as 2 tab PO DAILY 01/26/24 02/08/24 History carbonate)-vitamin D3 5 mcg (200 unit) tablet atorvastatin 20 mg tablet 20 mg PO QODAY 06/06/24 Unknown History loratadine 10 mg tablet (Claritin) 10 mg PO DAILY PRN allergy symptoms 06/06/24 Unknown History antiarthritic combination no.2 900 600 mg PO DAILY 06/22/24 Unknown History mg tablet (glucosamine-chondroitin) biotin 10,000 mcg capsule 10,000 mcg PO DAILY 06/22/24 Unknown History insulin aspart U-100 100 unit/mL 100 unit subcut USEASDIRECTD 90 06/22/24 Unknown Rx (3 mL) subcutaneous pen (Novolog days #90 mL FlexPen U-100 Insulin aspart) triamcinolone acetonide 0.5 % 1 applic topical TID PRN rash 09/15/24 Unknown History topical cream topiramate 100 mg tablet 100 mg PO QDAY #90 tabs 12/05/24 Unknown Rx valacyclovir 1 gram tablet 1,000 mg PO TID PRN cold sores 7 12/05/24 Unknown Rx days #21 tabs zolpidem 10 mg tablet 10 mg PO QHS insomnia #30 tabs 12/05/24 Unknown Rx ferrous sulfate 325 mg (65 mg 325 mg PO QDAY 12/29/24 02/15/25 History iron) tablet (Feosol) blood sugar diagnostic (OneTouch #100 ea 02/06/25 Unknown Rx Ultra Test strips) tirzepatide 15 mg/0.5 mL 15 mg (0.5 mL) subcut QWEEK #6 mL 02/16/25 02/14/25 Rx subcutaneous pen injector (Mounjaro) Allergy/AdvReac Type Severity Reaction Status Date / Time codeine Allergy Severe rash Verified 02/21/25 08:56 hydrocodone (From Vicodin) Allergy Severe rash Verified 02/21/25 08:56 Penicillins Allergy Severe rash Verified 02/21/25 08:56 propoxyphene (From Allergy Severe rash Verified 02/21/25 08:56 Darvocet-N) caffeine AdvReac Severe migraine Verified 02/21/25 08:56 trazodone AdvReac Severe made feel Verified 02/21/25 08:56 weird scopolamine AdvReac Mild Nausea Verified 02/21/25 08:57 Family History Other Adopted Surgical History (Updated 02/21/25 @ 09:04 by Tisha Teixeira) Hx of hysterectomy S/P CECILE-BSO History of lumpectomy of right breast Status post right breast lumpectomy Hx of surgical procedure Hx of nasal septoplasty Hx of tonsillectomy Cleft palate and cleft lip Social History Smoking Status: Former smoker second hand exposure: No alcohol intake: never substance use type: does not use additional social history: Boyfriend-Bhupendra Past Medical/Surgical History Planned Operation Planned Operative Procedure(s): COLONOSCOPY Previous Hospitalizations/Surgeries HX Hospitalizations: No Any Problems With Anesthesia: Yes (N,V-SCOPOLAMINE CAUSES NAUSEA) You/Your Family Experience Fever (Hyperthermia) With Anes: No (ADOPTED) Cholinesterase deficiency: No Cardiovascular Hx Hypertension: No Respiratory Hx Sleep Apnea: No Hx Respiratory Tract Infection/Cold (presently): No Do You Snore Loudly (louder than talking or can be heard): No Do You Often Feel Tired/ Fatigued/ Sleepy Dring Daytime?: No Has Anyone Observed You Stop Breathing During Sleep?: No Result (for STOP score): Negative Smoking Status: Former smoker Neurological Does patient have nerve stimulator: No Reproduction : No Miscellaneous Recent Exposure to Contagious Disease: No Allergies codeine Allergy (Severe, Verified 02/21/25 08:56) rash hydrocodone (From Vicodin) Allergy (Severe, Verified 02/21/25 08:56) rash Penicillins Allergy (Severe, Verified 02/21/25 08:56) rash propoxyphene (From Darvocet-N) Allergy (Severe, Verified 02/21/25 08:56) rash caffeine Adverse Reaction (Severe, Verified 02/21/25 08:56) migraine trazodone Adverse Reaction (Severe, Verified 02/21/25 08:56) made feel weird scopolamine Adverse Reaction (Mild, Verified 02/21/25 08:57) Nausea Discharge Is Pt Admitted From a [facility], or a Correction: No After D/C, Where Do you Plan to Go: Return Home Physical Exam Const alert, oriented x3 and no apparent distress HEENT normocephalic and head/scalp atraumatic Resp normal respiratory effort Cardio regular rate GI soft to palpation and non-tender; Negative for non-distended Palpation: Negative for guarding Extremity no clubbing, cyanosis or edema Skin no rashes or lesions noted Neuro CN's II-XII intact bilaterally Psych mental status grossly normal Assessment & Plan Assessment/Plan (1) Diarrhea: Surgery Risks - Colonoscopy I discussed with the patient the risks of the procedure: Yes Risks Include but are not Limited To: Will plan for random biopsies due to diarrhea. Risks include but are not limited to: Bleeding, perforation requiring further surgery, inability to complete colonoscopy requiring barium enema.
[2025-02-22] MEDS: Lactated Ringers 1,000 ML 15 ML IV (07:37)
--- NOTE | 2025-02-22 07:59 | PCM.PRE.AN2 ---
ASA Classification* ASA Classification ASA Classification: 3 (hx CKD3 - avoid versed, anx, migraines, breast CA) Assessment & Plan Anesthesia* Anesthesia Assessment Anesthesia Assessment: Discussed sedation and/or anesthesia options, risks, benefits, and alternatives with patient/parents/legal guardian/POA. Questions invited. The patient/parents/legal guardian/POA seems to understand and agrees to proceed with anesthesia plan. Reviewed the physical assessment, medical history, allergy history and patient home medications list prior to surgery/procedure/anesthetic and documented any changes. Performed airway and anesthesia risk assessments. Anesthesia Type Anesthesia Type: MAC History Source History Obtained from:: Patient and Chart Anesthesia Focused Assessment* Temperature: 97.9 F Pulse Rate: 76 Blood Pressure: 106/74 Respiratory Rate: 16 Pulse Ox: 100 Oxygen Delivery Method: Room Air Airway Assessment Mouth opens: >3 cm Mallampati Score: II Neck Range of motion (ROM): Full ROM Labs Anesthesia Preop lab: CBC WBC, (4.4-11.0) 5.3 K/mm3 12/29/24, 08:50 RBC, (4.2-5.4) 4.37 M/mm3 12/29/24, 08:50 Hgb, (12.0-15.0) 12.8 g/dL 12/29/24, 08:50 Hct, (37-47) 38.1 % 12/29/24, 08:50 Plt Count, (150-450) 238 K/mm3 12/29/24, 08:50 CHEMISTRY Potassium, (3.3-5.1) 4.4 mmol/L 12/29/24, 08:50 Sodium, (133-145) 139 mmol/L 12/29/24, 08:50 Magnesium, (1.6-2.6) 2.0 mg/dL 02/08/24, 09:24 Phosphorus, (2.5-4.9) 2.9 mg/dL 01/13/23, 10:35 BUN, (4-19) 20 mg/dL H 12/29/24, 08:50 Creatinine, (0.70-1.20) 0.74 mg/dL 12/29/24, 08:50 Glucose, (70-99) 144 mg/dL H 12/29/24, 08:50 POC Glucose, (74-106) 83 mg/dL 02/09/24, 08:54 TSH, (0.358-3.74) 0.86 uIU/mL 07/09/23, 09:00 COAG HCG, Quant, (1-3) < 1 mIU/mL 05/16/19, 16:40 Urine Test Negative Negative 02/09/24, 08:35 Tst Clinic Negative 07/20/23, 11:49 Pre-Assessment Diagnosis/Proposed Procedure Planned Operative Procedure(s): COLONOSCOPY Anesthesia History 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 When Was Last Pacemaker Check QUESTION #4 FULL TEXT: You/Your Family Experience fever (hyperthermia) with Anesthesia Last Oral Intake Last Oral intake: Last Oral Intake NPO since 19:00 02/22/25 07:30 Meds taken in AM with sips of water? Meds patient instructed to take am of surgery PONV PONV - victorian literature professor: PONV - victorian literature professor Female Yes 02/21/25 09:04 HX of Motion Sickness Yes 02/21/25 09:04 HX of N/V After Surgery Yes 02/21/25 09:04 Non-Smoker Yes 02/21/25 09:04 Duration of Surgery greater No 02/21/25 09:04 than 60 minutes Number of Risk Factors 4 02/21/25 09:04 PONV Score Severe Risk 02/21/25 09:04 Height & Weight Height & Weight: Anesthesia: Height & Weight Height 5 ft 2 in 02/22/25 07:30 Weight: 62 kg 02/22/25 07:30 Body Mass Index (BMI) 25.0 02/22/25 07:30 Respiratory Assessment Respiratory Assessment - victorian literature professor: Respiratory Tract Infection Hx - victorian literature professor Hx Respiratory Tract Infection No 02/22/25 07:33 STOP Sleep Apnea STOP Sleep Apnea - victorian literature professor: STOP Sleep Apnea - victorian literature professor Hx Hypertension No 02/22/25 07:33 Hx Sleep Apnea No 02/22/25 07:33 CPAP BIPAP Do you snore loudly (louder No 02/22/25 07:33 than talking or can be heard Do you often feel tired/ No 02/22/25 07:33 fatigued/ sleepy during daytime? Has anyone observed you stop No 02/22/25 07:33 breathing during sleep? STOP Results Negative 02/22/25 07:33 QUESTION #5 FULL TEXT : Do you snore loudly (louder than talking or can be heard through closed doors)? 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 Specify any problems Hx of Preganancy in last 3 No 02/21/25 09:04 Months Nurse Filling Out Transfusion VCHRISTIN 02/21/25 09:04 & Questions: Date: 02/21/25 02/21/25 09:04 Time: 09:06 02/21/25 09:04 Patient unable to answer at this time (ie. confused, unrespo /Reproduction History /Reproductive History - victorian literature professor: /Reproductive Hx- victorian literature professor Hx Now No 02/22/25 07:33 Gestational Age (in weeks): EDC: Hx Hx Para Hx Section SAB No 02/21/25 09:04 Does the father of the baby or his family experience fever w Father of the baby Malignant Hypertension history comment Active Medications Active Medications: Current Medications Generic Name Dose Route Start Last Admin Trade Name Freq PRN Reason Stop Dose Admin Lactated Ringer's 1,000 mls @ 15 mls/hr 02/22/25 07:30 02/22/25 07:37 IV 15 mls/hr .Q48H MANJIT Administration PFSH Medical History (Updated 02/21/25 @ 09:04 by Tisha Teixeira) Cardiology follow-up encounter History of breast cancer Chronic kidney disease History of renal disease Bone pain Screening for osteoporosis Visit for pelvic exam Well adult exam History of Clostridium difficile infection History of echocardiogram C. difficile diarrhea Hypokalemia Left ankle pain Anemia Encounter for chemotherapy management Encounter for monitoring cardiotoxic drug therapy Wears glasses Cancer Anxiety Insulin dependent diabetes mellitus Back pain Dietary restriction Former smoker Shortness of breath on exertion Hx of tear of ACL (anterior cruciate ligament) Liver hemangioma Encounter for insertion of venous access port Abnormal MRI Encounter for education CINV (chemotherapy-induced nausea and vomiting) Invasive ductal carcinoma of right breast Migraines Adopted Cleft lip Herpes simplex Hypercholesterolemia Home Medications ?Medication ?Instructions ?Recorded ?Last Taken ?Type multivitamin 1 tab PO DAILY 12/01/17 02/17/25 History sumatriptan succinate 100 mg tablet 100 mg PO PRN PRN MIGRAINES 07/28/22 Unknown History pen needle, diabetic 29 gauge x #270 ea 06/12/23 Unknown Rx 1/2 (BD Ultra-Fine Original Pen Needle) calcium 600 mg (as 2 tab PO DAILY 01/26/24 02/08/24 History carbonate)-vitamin D3 5 mcg (200 unit) tablet atorvastatin 20 mg tablet 20 mg PO QODAY 06/06/24 Unknown History loratadine 10 mg tablet (Claritin) 10 mg PO DAILY PRN allergy symptoms 06/06/24 Unknown History antiarthritic combination no.2 900 600 mg PO DAILY 06/22/24 Unknown History mg tablet (glucosamine-chondroitin) biotin 10,000 mcg capsule 10,000 mcg PO DAILY 06/22/24 Unknown History insulin aspart U-100 100 unit/mL 100 unit subcut USEASDIRECTD 90 06/22/24 Unknown Rx (3 mL) subcutaneous pen (Novolog days #90 mL FlexPen U-100 Insulin aspart) triamcinolone acetonide 0.5 % 1 applic topical TID PRN rash 09/15/24 Unknown History topical cream topiramate 100 mg tablet 100 mg PO QDAY #90 tabs 12/05/24 Unknown Rx valacyclovir 1 gram tablet 1,000 mg PO TID PRN cold sores 7 12/05/24 Unknown Rx days #21 tabs zolpidem 10 mg tablet 10 mg PO QHS insomnia #30 tabs 12/05/24 Unknown Rx ferrous sulfate 325 mg (65 mg 325 mg PO QDAY 12/29/24 02/15/25 History iron) tablet (Feosol) blood sugar diagnostic (OneTouch #100 ea 02/06/25 Unknown Rx Ultra Test strips) tirzepatide 15 mg/0.5 mL 15 mg (0.5 mL) subcut QWEEK #6 mL 02/16/25 02/14/25 Rx subcutaneous pen injector (Mounjaro) Allergy/AdvReac Type Severity Reaction Status Date / Time codeine Allergy Severe rash Verified 02/21/25 08:56 hydrocodone (From Vicodin) Allergy Severe rash Verified 02/21/25 08:56 Penicillins Allergy Severe rash Verified 02/21/25 08:56 propoxyphene (From Allergy Severe rash Verified 02/21/25 08:56 Darvocet-N) caffeine AdvReac Severe migraine Verified 02/21/25 08:56 trazodone AdvReac Severe made feel Verified 02/21/25 08:56 weird scopolamine AdvReac Mild Nausea Verified 02/21/25 08:57 Family History Other Adopted Surgical History (Updated 02/21/25 @ 09:04 by Tisha Teixeira) Hx of hysterectomy S/P CECIEL-BSO History of lumpectomy of right breast Status post right breast lumpectomy Hx of surgical procedure Hx of nasal septoplasty Hx of tonsillectomy Cleft palate and cleft lip Social History Smoking Status: Former smoker second hand exposure: No alcohol intake: never substance use type: does not use additional social history: Boyfriend-Bhupendra Review of Systems (Anesthesia) ROS Narrative System reviewed and no additional complaints, except as documented. Physical Exam Const alert, oriented x3 and average body habitus Resp normal respiratory effort, normal air movement and clear to auscultation bilaterally Cardio regular rate, regular rhythm and no murmurs; Negative for diaphoretic
--- NOTE | 2025-02-22 08:30 | COLBX_PTH ---
PATIENT: ISABELLE NAGY LOC: EN U#:[id number] AGE/SX: 45/F ROOM: RE02/22/[address]: Dr. Mary Jo Alvarado MD : 1980 BED: DIS: 02/22/2025 SPEC #: [id number] RECD: 02/22/25 10:25 STATUS: AMY RETracy #: [id number] CARMEN: 02/22/25 08:[address]: Mary Jo Alvarado DEPT: SURGICAL PATHOLOGY RECD BY: Michael Mahan ENTERED: 02/22/25 11:38 SP TYPE: COLON BX RANDA DR: Sima Loving, [employer]CIALS DEVELOPER-C Tissues: A - COLON BIOPSY Procedures: Surgery Specimen Level IV HEADER OPERATION: Colonoscopy with biopsy PRE-OP DIAGNOSIS: Diarrhea TISSUE SUBMITTED: A- Random colon biopsy MICROSCOPIC DIAGNOSIS A. Colon, random, biopsy: - No specific pathologic change. - The histologic features of microscopic colitis are not demonstrated. MICROSCOPIC DESCRIPTION Slides are reviewed. GROSS DESCRIPTION A. Received in fixative is one container labeled with the patient's name and designated Random colon biopsy. The specimen consists of three irregular fragments of bhat tissue that measure 0.4 to 0.7 cm. The specimen is totally submitted in one cassette. OR 02/22/2025 CPT:00769
--- NOTE | 2025-02-22 09:19 | OP.PROVAT_ITS ---
02/22/2025 Sima Loving NP [facility] [address] [place] [id number] Re : Colonoscopy procedure for Katja Rodrigez Dear Ms. Loving This procedure was performed on Saturday, February 22, 2025. My impressions and recommendations are as follows: Impressions : - The examination was otherwise normal on direct and retroflexion views. - Three random biopsies were obtained. Recommendations : - Discharge patient to home. - Resume previous diet. - Continue present medications. - Await pathology results. - Repeat colonoscopy in 10 years for screening purposes. My findings are described in the full procedure note, which is enclosed. If I can be of further assistance, please feel free to contact me at Doctor phone number(s): , Work: . Sincerely, MD Mary Jo Guo MD 02/22/2025 9:18:47 AM This report has been signed electronically.
--- NOTE | 2025-02-22 09:19 | OP.COLON_ITS ---
Patient Name: Katja Rodrigez Procedure Date: 02/22/2025 8:46 AM Date of : 1980 Age: 45 Procedure: Colonoscopy Indications: Chronic diarrhea Providers: Mary Jo Alvarado MD Medicines: Monitored Anesthesia Care Patient Profile: This is a 45 year old female. Last Colonoscopy: none. The patient's first colonoscopy is today. Complications: No immediate complications. Procedure: Pre-Anesthesia Assessment: - Prior to the procedure, a History and Physical was performed, and patient medications and allergies were reviewed. The patient's tolerance of previous anesthesia was also reviewed. The risks and benefits of the procedure and the sedation options and risks were discussed with the patient. All questions were answered, and informed consent was obtained. Prior Anticoagulants: The patient has taken no anticoagulant or antiplatelet agents. ASA Grade Assessment: Per anesthesia. After reviewing the risks and benefits, the patient was deemed in satisfactory condition to undergo the procedure. After I obtained informed consent, the scope was passed under direct vision. Throughout the procedure, the patient's blood pressure, pulse, and oxygen saturations were monitored continuously. The colonoscope was introduced through the anus and advanced to the terminal ileum. The colonoscopy was performed without difficulty. The patient tolerated the procedure well. The quality of the bowel preparation was good. Scope In: 9:01:52 AM Scope Withdrawal Time 0 hours 8 minutes 38 seconds Scope Out: 9:14:30 AM Total Procedure Duration Time 0 hours 12 minutes 38 seconds Findings: The perianal and digital rectal examinations were normal. Three random biopsies were obtained with cold forceps for histology. The exam was otherwise without abnormality on direct and retroflexion views. Impression: - The examination was otherwise normal on direct and retroflexion views. - Three random biopsies were obtained. Recommendation: - Discharge patient to home. - Resume previous diet. - Continue present medications. - Await pathology results. - Repeat colonoscopy in 10 years for screening purposes. Procedure Code(s): --- Professional --- 71441, Colonoscopy, flexible; with biopsy, single or multiple Diagnosis Code(s): --- Professional --- K52.9, Noninfective gastroenteritis and colitis, unspecified CPT copyright 2021 [employer]. All rights reserved. The codes documented in this report are preliminary and upon scrap carrier review may be revised to meet current compliance requirements. MD Mary Jo Guo MD 02/22/2025 9:18:47 AM This report has been signed electronically. Number of Addenda: 0 Note Initiated On: 02/22/2025 8:46 AM
--- NOTE | 2025-02-22 09:26 | PCM.POST.ANE ---
Anesthesia: Postop Eval I Current Vital Signs Temperature: 97.4 F Pulse Rate: 74 Blood Pressure: 100/80 Respiratory Rate: 16 Pulse Ox: 99 Oxygen Delivery Method: Room Air Assessment Airway patent: Yes Spontaneous unlabored respirations: Yes Mental status: Awake and Calm nausea: No Vomiting: No Anesthesia Complication: No Fluid Hydration Crystalloid volume administer (ml): 400 Total IV fluid infused: 400 Progress Note Anesthesia document: Postop Eval 1 completed: Yes
--- NOTE | 2025-02-22 11:34 | PCM.POSTANE2 ---
Anesthesia Postop Eval I Sum Postop Eval Completion status Anesthesia document: Postop Eval 1 completed: Yes Anesthesia Postop Eval I Summary Anesthesia Postop Eval I Summary: Anesthesia Postop Eval I: Assessment Summary Airway patent Yes 02/22/25 09:27 [email or web address] Spontaneous unlabored Yes 02/22/25 09:27 [email or web address] respirations Mental status Awake,Calm 02/22/25 09:27 [email or web address] nausea No 02/22/25 09:27 [email or web address] Vomiting No 02/22/25 09:27 [email or web address] Anesthesia Postop Eval I: Fluid Summary Crystalloid volume administer 400 02/22/25 09:27 [email or web address] (ml) Colloids volume administered ( ml) Blood Product volume administered (ml) Total IV fluid infused 400 02/22/25 09:27 [email or web address] Anesthesia Postop Eval I: Summary Notes Anesthesia Complication No 02/22/25 09:27 [email or web address] Anesthesia Complication Comment: Post-operative progress note Anesthesia: Postop Eval II Evaluation Mental status: Awake Pain Level: 0 nausea: No Vomiting: No Complications Anesthesia Complication: No
== END 2025-02-22 09:51 | disposition home or self-care (01) ==
LOC: EN 07:10 → AC 07:13
PROVIDERS: PCP Nurse Practitioner; Referring Provider Nurse Practitioner; Visit Provider Surgery
PROC: 0DJD8ZZ Inspection of Lower Intestinal Tract, Via Natural or Artificial Opening Endoscopic (ICD-10-PCS; CPT 45378; principal; 2025-02-22 08:25)
DX: R19.7 Diarrhea, unspecified (principal); E11.22 Type 2 diabetes mellitus with diabetic chronic kidney disease; Z79.4 Long term (current) use of insulin; Z87.891 Personal history of nicotine dependence; E78.00 Pure hypercholesterolemia, unspecified; N18.9 Chronic kidney disease, unspecified; Z92.21 Personal history of antineoplastic chemotherapy; Z85.3 Personal history of malignant neoplasm of breast; Z79.899 Other long term (current) drug therapy; Z90.710 Acquired absence of both cervix and uterus
CPT/HCPCS: 45380; 88305; J2405